=== PATIENT | male | born 1955 | race Caucasian/White ===

== ENCOUNTER 2020-08-18 14:37 | Observation (INO) | payer OTHER ==
[2020-08-18] MEDS ORDERED: HEPARIN SODIUM,PORCINE 5,000 UNIT/ML 1 ML VIAL IV PRN (15:09)
--- NOTE | 2020-08-18 15:11 | ED ---
General Adult HPI - General Chief complaint: Arrhythmia/Palpitations Stated complaint: Transfer from [place] for Cardiac Time Seen by Provider: 08/18/20 14:38 Source: patient, EMS, RN notes reviewed, old records reviewed (Reviewed reports from [facility]) Mode of arrival: EMS Limitations: no limitations - History of Present Illness Initial comments: Patient is a pleasant 65-year-old male presenting to the emergency department as a transfer from [place] for new onset atrial fibrillation. Patient did go to Hospital with difficulty in breathing complaints, similar to his chronic COPD. Patient denies chest pain or palpitations. No fatigue. While there patient was diagnosed with atrial fibrillation and started on Cardizem and heparin. Patient has no history of previous atrial fibrillation. Patient states overall he feels well. Patient denies any dyspnea at this time. No leg pain or leg swelling. - Related Data Allergies Allergy/AdvReac Type Severity Reaction Status Date / Time No Known Allergies Allergy Verified 08/18/20 14:52 Review of Systems ROS Statement: Those systems with pertinent positive or pertinent negative responses have been documented in the HPI. ROS Other: All systems not noted in ROS Statement are negative. Constitutional: Denies: fever Eyes: Denies: eye pain ENT: Denies: ear pain Respiratory: Reports: as per HPI. Denies: cough Cardiovascular: Reports: as per HPI. Denies: chest pain, palpitations Endocrine: Denies: fatigue Gastrointestinal: Denies: abdominal pain Genitourinary: Denies: dysuria Musculoskeletal: Denies: back pain Skin: Denies: rash Neurological: Denies: weakness Past Medical History Past Medical History: COPD Additional Past Medical History / Comment(s): Sober for 10 years History of Any Multi-Drug Resistant Organisms: None Reported Additional Past Surgical History / Comment(s): HYDROCELE Past Psychological History: Bipolar, Panic Disorder Smoking Status: Current every day smoker Past Alcohol Use History: None Reported Past Drug Use History: None Reported General Exam Limitations: no limitations General appearance: alert, in no apparent distress Head exam: Present: normocephalic Eye exam: Present: normal appearance Neck exam: Present: normal inspection Respiratory exam: Present: wheezes Cardiovascular Exam: Present: tachycardia, irregular rhythm Expanded Peripheral pulses: 2+: Radial (R), Radial (L), Dorsalis Pedis (R), Dorsalis Pedis (L) GI/Abdominal exam: Present: soft. Absent: tenderness Extremities exam: Present: normal inspection. Absent: pedal edema, calf tenderness Neurological exam: Present: alert Psychiatric exam: Present: normal affect, normal mood Skin exam: Present: normal color Course Vital Signs 08/18/20 14:45 Temperature 98.7 F Pulse Rate 105 H Respiratory 18 Rate Blood Pressure 167/127 O2 Sat by Pulse 94 L Oximetry - Reevaluation(s) Reevaluation #1: 08/18/20 15:16 Case was discussed with Dr. Sanon, who will admit covering for Dr. Villela 08/18/20 15:17 Cardizem and heparin drips restarted. Cardiology will be placed on consult. EKG Findings - EKG Comments: EKG Findings:: A. fib with RVR, rate 109. QRS 82. QT to 72. QTC 366. Right axis. Normal QRS. No acute ST change. Disposition Clinical Impression: Atrial fibrillation with RVR, COPD (chronic obstructive pulmonary disease) Disposition: ADMITTED IP TO THIS HOSP Is patient prescribed a controlled substance at d/c from ED?: No Referrals: Josue Villela MD [Primary Care Provider] - 1-2 days Decision Time: 15:17
[2020-08-18] MEDS ORDERED: DILTIAZEM 125 MG in SODIUM CHLORIDE 0.9% 100 ML IV SCH (15:15)
[2020-08-18] MEDS ORDERED: IPRATROPIUM-ALBUTEROL 3 ML NEB INHALATION STA (15:17)
[2020-08-18] MEDS ORDERED: IPRATROPIUM-ALBUTEROL 3 ML NEB INHALATION PRN (15:18)
[2020-08-18] MEDS: HEPARIN SOD,PORK IN 0.45% NACL 25,000 UNIT in 0.45% NACL 1 250ML.BAG IV SCH (15:56)
[2020-08-18] MEDS: IPRATROPIUM-ALBUTEROL 3 ML NEB INHALATION SCH ×2 (16:00→22:06)
[2020-08-18] MEDS ORDERED: methylPREDNISolone SOD SUCCI 125 MG/2 ML VIAL IV SCH (18:00)
[2020-08-18 21:20] LABS: Glucose,Whole Blood 108 mg/dL (75-99)
[2020-08-18] MEDS: INSULIN ASPART (NovoLOG) 100 UNIT/ML VIAL SQ SCH (21:22)
[2020-08-18] MEDS: LATANOPROST 0.005% OPHTH DROPS 2.5 ML BTL LEFT EYE SCH (21:22)
[2020-08-18] MEDS: NAPROXEN 250 MG TAB PO SCH (21:55)
[2020-08-18] MEDS: ATORVASTATIN 10 MG TAB PO SCH (21:55)
[2020-08-18] MEDS: LITHIUM CARBONATE 300 MG CAP PO SCH (21:56)
--- NOTE | 2020-08-18 23:29 | P.HPIM ---
History of Present Illness H&P Date: 08/18/20 Chief Complaint: Short of breath History of presenting complaint: This is a 65-year-old patient who follows with Dr. Alvin Villela. Chronic stable medical conditions include hyperlipidemia, hypothyroid, bipolar. Patient is a smoker. Patient chronically has some baseline shortness of breath but for 1 day became increasingly short of breath especially in the shower. Has a chronic cough with chronic white sputum. Appetite is okay on and off. Patient presented to [facility] for right knee was transferred here for new onset atrial fibrillation rate was uncontrolled. Patient started IV Cardizem and IV heparin. No prior history of the same. No chest pain or palpitation. Getting easily short winded Review of systems: GEN.: Tired EYES: None HEENT: None NECK: None RESPIRATORY: As above CARDIOVASCULAR: As above GASTROINTESTINAL: None GENITOURINARY: None MUSCULOSKELETAL: Some joint pains LYMPHATICS: None HEMATOLOGICAL: None PSYCHIATRY: None NEUROLOGICAL: None Past medical history to include: COPD, hyperlipidemia, hypothyroid, bipolar Social history: Lives with sister Marifer, smokes a pack a day for close to 50 years, no alcohol Physical examination: VITAL SIGNS: 98.7, 105, 18, 150-102, 94% on room air GENERAL: [BMI 31.2, laying in bed, a bit tired. EYES: Pupils equal. Conjunctiva normal. HEENT: External appearance of nose and ears normal, oral cavity grossly normal. NECK: JVD not raised; masses not palpable. HEART: Irregular heart sounds; no edema. LUNGS: Respiratory rate increased; decreased breath sounds prolonged expiration. ABDOMEN: Soft, nontender, liver spleen not palpable, no masses palpable. PSYCH: Alert and oriented x3; mood and affect normal. NEUROLOGICAL: Cranial nerves grossly intact; no facial asymmetry, power and sensation grossly intact. LYMPHATICS: No lymph nodes palpable in the axilla and neck INVESTIGATIONS, reviewed in the clinical context: Glucose 108 Troponin I less than 0.012 EKG showed A. fib with a rapid ventricular rate 109 Assessment: -New onset of atrial fibrillation flutter with a rapid ventricular late -Acute COPD exacerbation in a current smoker -Chronic bronchitis -Hyperlipidemia -Hypothyroid -Bipolar disorder Plan: Patient started IV Cardizem and IV heparin drip. IV Solu-Medrol applies bronchodilators. Home medications resumed. Cardiac disease consulted. Nicotine patch. Care was discussed with the patient. Past Medical History Past Medical History: COPD, Hyperlipidemia, Thyroid Disorder Additional Past Medical History / Comment(s): Sober for 10 years History of Any Multi-Drug Resistant Organisms: None Reported Additional Past Surgical History / Comment(s): HYDROCELE Past Anesthesia/Blood Transfusion Reactions: No Reported Reaction Past Psychological History: Anxiety, Bipolar, Panic Disorder Smoking Status: Current every day smoker Past Alcohol Use History: None Reported Past Drug Use History: None Reported - Past Family History Mother Family Medical History: Diabetes Mellitus Father Family Medical History: Coronary Artery Disease (CAD) Medications and Allergies Home Medications Medication Instructions Recorded Confirmed Type Albuterol Inhaler [Ventolin Hfa 2 puff INHALATION RT-Q4H PRN 08/18/20 08/18/20 History Inhaler] Beclomethasone Dipropionate [Qvar 2 puff PO RT-BID 08/18/20 08/18/20 History 80mcg Redihaler] Latanoprost/Pf [Latanoprost 0.005% 1 drop LEFT EYE HS 08/18/20 08/18/20 History Eye Drop] Levothyroxine Sodium 125 mcg PO DAILY 08/18/20 08/18/20 History [place] Carbonate 300 mg PO BID 08/18/20 08/18/20 History Naproxen 500 mg PO BID 08/18/20 08/18/20 History OLANZapine [ZyPREXA] 7.5 mg PO DAILY 08/18/20 08/18/20 History PARoxetine HCL [Paxil] 20 mg PO DAILY 08/18/20 08/18/20 History Simvastatin [Zocor] 20 mg PO HS 08/18/20 08/18/20 History Allergies Allergy/AdvReac Type Severity Reaction Status Date / Time No Known Allergies Allergy Verified 08/18/20 15:21 Physical Exam Vitals: Vital Signs Temp Pulse Pulse Resp BP BP Pulse Ox 08/18/20 20:00 97.8 F 105 H 18 134/96 92 L 08/18/20 18:11 98.5 F 78 18 118/99 93 L 08/18/20 17:01 98.5 F 78 18 118/99 93 L 08/18/20 16:24 110 H 16 115/102 93 L 08/18/20 16:01 97 16 08/18/20 15:54 96 16 08/18/20 15:25 115 H 08/18/20 14:45 98.7 F 105 H 18 167/127 94 L Intake and Output 08/18/20 08/18/20 08/19/20 14:59 22:59 06:59 Output Total 360 Balance -360 Output: Urine 360 Other: # Voids 1 Weight 113.398 kg 113.398 kg Results Labs: Abnormal Lab Results - Last 24 Hours (Table) 08/18/20 Range/Units 21:18 POC Glucose (mg/dL) 108 H (75-99) mg/dL Thrombosis Risk Factor Assmnt - Choose All That Apply Each Factor Represents 1 point: Abnormal pulmonary function (COPD) Each Risk Factor Represents 2 Points: Age 61-74 years Thrombosis Risk Factor Assessment Total Risk Factor Score: 3 Thrombosis Risk Factor Assessment Level: Moderate Risk
[2020-08-19] MEDS: methylPREDNISolone SOD SUCCI 40 MG/ML 1 ML VIAL IV SCH ×3 (00:05→15:10)
[2020-08-19 06:12] LABS: Glucose,Whole Blood 131 mg/dL (75-99)
[2020-08-19] MEDS: INSULIN ASPART (NovoLOG) 100 UNIT/ML VIAL SQ SCH ×4 (07:00→20:51)
[2020-08-19] MEDS: LEVOTHYROXINE 125 MCG TAB PO SCH (07:00)
[2020-08-19] MEDS: LITHIUM CARBONATE 300 MG CAP PO SCH ×2 (08:08→20:51)
[2020-08-19] MEDS: OLANZapine 7.5 MG TAB PO SCH (08:09)
[2020-08-19] MEDS: PARoxetine 20 MG TAB PO SCH (08:09)
[2020-08-19] MEDS: NAPROXEN 250 MG TAB PO SCH ×2 (08:09→20:49)
[2020-08-19] MEDS: guaiFENesin 600 MG TABLET.ER PO SCH ×2 (08:09→20:49)
[2020-08-19] MEDS: NICOTINE 21MG/24HR PATCH TRANSDERM SCH (08:09)
[2020-08-19 08:16] LABS: Basophils # (A) 0.1 k/uL (0-0.2); Basophils % (A) 1 %; Eosinophils % (A) 0 %; Lymphocytes # (A) 1.5 k/uL (1.0-4.8); Lymphocytes % (A) 13 %; MCH 30.6 pg (25.0-35.0); MCHC 32.4 g/dL (31.0-37.0); MCV 94.5 fL (80.0-100.0); Mean Platelet Volume 10.3; Monocytes # (A) 0.1 k/uL (0-1.0); Monocytes % (A) 1 %; Neutrophils # (A) 9.8 k/uL (1.3-7.7); Neutrophils % (A) 85 %; Platelet Count 208 k/uL (150-450); RDW 13.5 % (11.5-15.5); WBC 11.6 k/uL (3.8-10.6)
[2020-08-19 08:19] LABS: HCT 60.5 % (39.0-53.0); HGB 19.6 gm/dL (13.0-17.5)
[2020-08-19 08:21] LABS: Albumin 3.9 g/dL (3.5-5.0); Calcium 9.4 mg/dL (8.4-10.2); Potassium 4.5 mmol/L (3.5-5.1); Total Bilirubin 1.1 mg/dL (0.2-1.3); Total Protein 7.2 g/dL (6.3-8.2)
[2020-08-19] MEDS ORDERED: METOPROLOL TARTRATE 50 MG TAB PO SCH (09:00)
[2020-08-19] MEDS: IPRATROPIUM-ALBUTEROL 3 ML NEB INHALATION SCH ×4 (09:26→20:16)
[2020-08-19 09:28] LABS: INR 1.1 (<1.2); Prothrombin Time 11.3 sec (9.0-12.0)
[2020-08-19] MEDS ORDERED: METOPROLOL TARTRATE 25 MG TAB PO STA (10:20)
[2020-08-19 12:07] LABS: Glucose,Whole Blood 147 mg/dL (75-99)
[2020-08-19] MEDS: HEPARIN SOD,PORK IN 0.45% NACL 25,000 UNIT in 0.45% NACL 1 250ML.BAG IV SCH (12:28)
--- NOTE | 2020-08-19 13:05 | ECHOF ---
Referral Reason:lv function, afib MEASUREMENTS -------- HEIGHT: 190.5 cm WEIGHT: 106.6 kg BP: 126/77 RVIDd: 2.5 cm (< 3.3) IVSd: 1.4 cm (0.6 - 1.1) LVIDd: 3.1 cm (3.9 - 5.3) LVPWd: 1.5 cm (0.6 - 1.1) IVSs: 1.7 cm LVIDs: 2.7 cm LVPWs: 1.9 cm LA Diam: 2.9 cm (2.7 - 3.8) LAESV Index (A-L): 23.99 ml/m Ao Diam: 3.8 cm (2.0 - 3.7) AV Cusp: 2.4 cm (1.5 - 2.6) MV EXCURSION: 21.996 mm (> 18.000) MV EF SLOPE: 108 mm/s (70 - 150) EPSS: 0.8 cm RAP: 5.00 mmHg RVSP: 27.32 mmHg FINDINGS -------- Atrial fibrillation. This was a technically difficult study with suboptimal views. The left ventricular size is normal. There is moderate concentric left ventricular hypertrophy. O verall left ventricular systolic function is mild-moderately impaired with, an EF between 40 - 45 %. The right ventricle is normal in size. Normal LA size by volume 22+/-6 ml/m2. The right atrium is normal in size. Lumason used Interatrial and interventricular septum intact. The aortic valve is trileaflet and appears structurally normal. Mild mitral regurgitation is present. Mild tricuspid regurgitation present. Right ventricular systolic pressure is normal at < 35 mmHg. The pulmonic valve was not well visualized. The aortic root is dilated measuring 3.8cm. IVC Not well visulized. There is no pericardial effusion. CONCLUSIONS -------- 1. The left ventricular size is normal. 2. There is moderate concentric left ventricular hypertrophy. 3. Overall left ventricular systolic function is mild-moderately impaired with, an EF between 40 - 45 %. 4. Normal LA size by volume 22+/-6 ml/m2. 5. Lumason used 6. Mild mitral regurgitation is present. 7. Mild tricuspid regurgitation present. 8. The aortic root is dilated measuring 3.8cm. 9. There is no pericardial effusion. RABBIT FANCIER: Christine Saxena RDCS
--- NOTE | 2020-08-19 13:55 | P.CRDCN ---
History of Present Illness Consult date: 08/19/20 History of present illness: CHIEF COMPLAINT: New onset atrial fibrillation HISTORY OF PRESENT ILLNESS: This is a 65-year old male with a past medical history significant for COPD, hyperlipidemia, and nicotine dependence. 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 We have been asked to see the patient in consultation for new onset atrial fibrillation. Patient examined this morning at the bedside. Patient reports he has been short of breath since Sunday. He reports using his inhalers at home with minimal improvement. He reports feeling palpitations. He denies chest pain or pressure. Patient was evaluated at [facility] and was found to be in atrial fibrillation with RVR and was transferred to [facility] for further evaluation. DIAGNOSTICS: EKG reveals atrial fibrillation with RVR Laboratory data: WBC 11.6. Hemoglobin 19.6. Platelet count 208. Sodium 140. Potassium 4.5. BUN 16. Creatinine 1.04. BNP 736. Current home cardiac medications include simvastatin 20 mg daily REVIEW OF SYSTEMS: At the time of my exam: CONSTITUTIONAL: Denies fever or chills. HEENT: Denies blurred vision, vision changes, or eye pain. Denies hemoptysis CARDIOVASCULAR: Denies chest pain, orthopnea, PND or palpitations RESPIRATORY: No shortness of breath. GASTROINTESTINAL: Denies abdominal pain. Denies nausea or vomiting. HEMATOLOGIC: Denies bleeding disorders. GENITOURINARY: Denies any blood in urine. SKIN: Denies pruitis. Denies rash. PHYSICAL EXAM: VITAL SIGNS: Reviewed. GENERAL: Well-developed in no acute distress. HEENT: Head is normocephalic. Pupils are equal, round. Sclerae anicteric. Mucous membranes of the mouth are moist. Neck supple. No JVD or thyromegaly LUNGS: Respirations even and unlabored. Lungs coarse with expiratory wheezing noted. HEART: Irregular rate and rhythm. S1 and S2 heard. ABDOMEN: Soft. Nondistended. Nontender. EXTREMITIES: Normal range of motion. No clubbing or cyanosis. Peripheral pulses intact. No lower extremity edema NEUROLOGIC: Awake and alert. Oriented x 3. ASSESSMENT: New-onset atrial fibrillation with RVR Acute exacerbation of COPD Hyperlipidemia Hypothyroidism Nicotine dependence PLAN: Discontinue IV Cardizem drip Begin metoprolol 75 mg twice a day Monitor telemetry and blood pressure Obtain 2-D echo to assess cardiac structure and function Continue IV heparin at this time. If no significant abnormalities noted on echocardiogram will discontinue IV heparin and will recommend aspirin therapy only. If patient is found to have abnormalities on his echocardiogram will consider anticoagulation in the form of Eliquis or Xarelto Further recommendations pending Nurse practitioner note has been reviewed by physician. Signing provider agrees with the documented findings, assessment, and plan of care. Past Medical History Past Medical History: COPD, Hyperlipidemia, Thyroid Disorder Additional Past Medical History / Comment(s): Sober for 10 years History of Any Multi-Drug Resistant Organisms: None Reported Additional Past Surgical History / Comment(s): HYDROCELE Past Anesthesia/Blood Transfusion Reactions: No Reported Reaction Past Psychological History: Anxiety, Bipolar, Panic Disorder Smoking Status: Current every day smoker Past Alcohol Use History: None Reported Past Drug Use History: None Reported - Past Family History Mother Family Medical History: Diabetes Mellitus Father Family Medical History: Coronary Artery Disease (CAD) Medications and Allergies Home Medications Medication Instructions Recorded Confirmed Type Albuterol Inhaler [Ventolin Hfa 2 puff INHALATION RT-Q4H PRN 08/18/20 08/18/20 History Inhaler] Beclomethasone Dipropionate [Qvar 2 puff PO RT-BID 08/18/20 08/18/20 History 80mcg Redihaler] Latanoprost/Pf [Latanoprost 0.005% 1 drop LEFT EYE HS 08/18/20 08/18/20 History Eye Drop] Levothyroxine Sodium 125 mcg PO DAILY 08/18/20 08/18/20 History [place] Carbonate 300 mg PO BID 08/18/20 08/18/20 History Naproxen 500 mg PO BID 08/18/20 08/18/20 History OLANZapine [ZyPREXA] 7.5 mg PO DAILY 08/18/20 08/18/20 History PARoxetine HCL [Paxil] 20 mg PO DAILY 08/18/20 08/18/20 History Simvastatin [Zocor] 20 mg PO HS 08/18/20 08/18/20 History Allergies Allergy/AdvReac Type Severity Reaction Status Date / Time No Known Allergies Allergy Verified 08/18/20 15:21 Physical Exam Vitals: Vital Signs Temp Pulse Pulse Resp BP BP Pulse Ox 08/19/20 13:25 96 08/19/20 13:15 96 08/19/20 12:13 98.6 F 105 H 18 123/83 94 L 08/19/20 09:38 96 08/19/20 09:28 92 08/19/20 07:51 98.3 F 123 H 18 126/77 94 L 08/19/20 04:00 97.9 F 103 H 18 142/82 93 L 08/19/20 00:20 97.9 F 94 19 127/82 94 L 08/18/20 20:00 97.8 F 105 H 18 134/96 92 L 08/18/20 18:11 98.5 F 78 18 118/99 93 L 08/18/20 17:01 98.5 F 78 18 118/99 93 L 08/18/20 16:24 110 H 16 115/102 93 L 08/18/20 16:01 97 16 08/18/20 15:54 96 16 08/18/20 15:25 115 H 08/18/20 14:45 98.7 F 105 H 18 167/127 94 L Intake and Output 08/18/20 08/19/20 08/19/20 22:59 06:59 14:59 Intake Total 686.390 Output Total 360 180 Balance -360 -180 686.390 Intake: IV 10 Invasive Line 1 10 Intake, IV Titration 214.390 Amount Heparin Sod,Pork in 0.45% 214.390 NaCl 25,000 unit In 0.45 % NaCl 1 250ml.bag @ 8.82 UNITS/KG/HR 10.002 mls/ hr IV .Q24H [facility] Rx#: [id number] Oral 462 Output: Urine 360 180 Other: # Voids 1 1 Weight 113.398 kg 106.7 kg Results 08/19/20 07:47 08/19/20 07:50 Cardiac Enzymes 08/18/20 08/19/20 Range/Units 15:08 07:50 AST 29 (17-59) U/L Troponin I <0.012 (0.000-0.034) ng/mL Coagulation 08/18/20 08/19/20 Range/Units 15:17 08:45 PT 11.3 (9.0-12.0) sec APTT 27.7 29.0 (22.0-30.0) sec CBC 08/19/20 Range/Units 07:47 WBC 11.6 H (3.8-10.6) k/uL RBC 6.40 H (4.30-5.90) m/uL Hgb 19.6 H* (13.0-17.5) gm/dL Hct 60.5 H* (39.0-53.0) % Plt Count 208 (150-450) k/uL Comprehensive Metabolic Panel 08/19/20 Range/Units 07:50 Sodium 140 (137-145) mmol/L Potassium 4.5 (3.5-5.1) mmol/L Chloride 109 H (98-107) mmol/L Carbon Dioxide 25 (22-30) mmol/L BUN 16 (9-20) mg/dL Creatinine 1.04 (0.66-1.25) mg/dL Glucose 149 H (74-99) mg/dL Calcium 9.4 (8.4-10.2) mg/dL AST 29 (17-59) U/L ALT 26 (4-49) U/L Alkaline Phosphatase 82 (38-126) U/L Total Protein 7.2 (6.3-8.2) g/dL Albumin 3.9 (3.5-5.0) g/dL Current Medications Generic Name Dose Route Start Last Admin Trade Name Freq PRN Reason Stop Dose Admin Albuterol/Ipratropium 3 ml 08/18/20 16:00 08/19/20 13:15 Ipratropium-Albuterol 3 Ml Neb INHALATION 3 ml RT-QID TESFAYE Administration Albuterol/Ipratropium 3 ml 08/18/20 15:18 Ipratropium-Albuterol 3 Ml Neb INHALATION RT-Q4H PRN Shortness Of Breath Or Wheezing Atorvastatin Calcium 10 mg 08/18/20 21:00 08/18/20 21:55 Atorvastatin 10 Mg Tab PO 10 mg HS TESFAYE Administration Guaifenesin 1,200 mg 08/19/20 09:00 08/19/20 08:09 Guaifenesin 600 Mg Tablet.Er PO 1,200 mg Q12HR TESFAYE Administration Heparin Sodium (Porcine) 0 unit 08/18/20 15:09 08/19/20 09:44 Heparin Sodium,Porcine 5,000 Unit/Ml 1 Ml Vial IV 4,000 unit PER PROTOCOL PRN Administration Low PTT Protocol Heparin Sodium/Sodium Chloride 250 mls @ 10.002 mls/hr 08/18/20 15:15 12:28 25,000 unit/ Sodium Chloride IV 11.82 units/kg/hr .Q24H TESFAYE 13.404 mls/hr Administration Protocol 8.82 UNITS/KG/HR Insulin Aspart 0 unit 08/18/20 21:15 08/19/20 12:20 Insulin Aspart (Novolog) 100 Unit/Ml Vial SQ 2 unit ACHS TESFAYE Administration Protocol Latanoprost 1 drops 08/18/20 21:00 08/18/20 21:22 Latanoprost 0.005% Ophth Drops 2.5 Ml Btl LEFT EYE 1 drops HS TESFAYE Administration Levothyroxine Sodium 125 mcg 08/19/20 06:30 08/19/20 07:00 Levothyroxine 125 Mcg Tab PO 125 mcg DAILY@0630 TESFAYE Administration [place] Carbonate 300 mg 08/18/20 21:00 08/19/20 08:08 [place] Carbonate 300 Mg Cap PO 300 mg BID TESFAYE Administration Methylprednisolone Sodium Succinate 40 mg 08/19/20 00:00 08/19/20 08:09 Methylprednisolone Sod Succi 40 Mg/Ml 1 Ml Vial IV 40 mg Q8HR TESFAYE Administration Metoprolol Tartrate 75 mg 08/19/20 21:00 Metoprolol Tartrate 25 Mg Tab PO BID TESFAYE Naproxen 500 mg 08/18/20 21:00 08/19/20 08:09 Naproxen 250 Mg Tab PO 500 mg BID TESFAYE Administration Nicotine 1 patch 08/19/20 09:00 08/19/20 08:09 Nicotine 21mg/24hr Patch TRANSDERM 1 patch DAILY TESFAYE Administration Olanzapine 7.5 mg 08/19/20 09:00 08/19/20 08:09 Olanzapine 7.5 Mg Tab PO 7.5 mg DAILY TESFAYE Administration Paroxetine HCl 20 mg 08/19/20 09:00 08/19/20 08:09 Paroxetine 20 Mg Tab PO 20 mg DAILY TESFAYE Administration Sodium Chloride 10 ml 08/18/20 21:00 08/19/20 08:15 Sodium Chloride 0.9% Flush 10 Ml Syringe IV 10 ml BID TESFAYE Administration Intake and Output 08/18/20 08/19/20 08/19/20 22:59 06:59 14:59 Intake Total 686.390 Output Total 360 180 Balance -360 -180 686.390 Intake: IV 10 Invasive Line 1 10 Intake, IV Titration 214.390 Amount Heparin Sod,Pork in 0.45% 214.390 NaCl 25,000 unit In 0.45 % NaCl 1 250ml.bag @ 8.82 UNITS/KG/HR 10.002 mls/ hr IV .Q24H [facility] Rx#: [id number] Oral 462 Output: Urine 360 180 Other: # Voids 1 1 Weight 113.398 kg 106.7 kg 08/19/20 07:47 08/19/20 07:50
--- NOTE | 2020-08-19 16:50 | P.PN ---
Progress Note - Text Progress Note Date: 08/19/20 Chief Complaint: Short of breath History of presenting complaint: This is a 65-year-old patient who follows with Dr. Alvin Villela. Chronic stable medical conditions include hyperlipidemia, hypothyroid, bipolar. Patient is a smoker. Patient chronically has some baseline shortness of breath but for 1 day became increasingly short of breath especially in the shower. Has a chronic cough with chronic white sputum. Appetite is okay on and off. Patient presented to [facility] for right knee was transferred here for new onset atrial fibrillation rate was uncontrolled. Patient started IV Cardizem and IV heparin. No prior history of the same. No chest pain or palpitation. Getting easily short winded Admitted with new-onset atrial fibrillation flutter uncontrolled, COPD exacerbation.-Patient started IV heparin, IV Cardizem, bronchodilators, steroids. Today-heart rate bit better controlled. Breathing better. Less cough or shortness of breath. Did tolerate her diet. Review of systems: Was done for constitutional, cardiovascular, GI, pulmonary. relevant finding as above Active Medications Albuterol/Ipratropium (Ipratropium-Albuterol 3 Ml Neb) 3 ml INHALATION RT-QID TESFAYE Last Admin: 08/19/20 16:12 Dose: 3 ml Documented by: Albuterol/Ipratropium (Ipratropium-Albuterol 3 Ml Neb) 3 ml INHALATION RT-Q4H PRN PRN Reason: Shortness Of Breath Or Wheezing Atorvastatin Calcium (Atorvastatin 10 Mg Tab) 10 mg PO HS TESFAYE Last Admin: 08/18/20 21:55 Dose: 10 mg Documented by: Guaifenesin (Guaifenesin 600 Mg Tablet.Er) 1,200 mg PO Q12HR TESFAYE Last Admin: 08/19/20 08:09 Dose: 1,200 mg Documented by: Heparin Sodium (Porcine) (Heparin Sodium,Porcine 5,000 Unit/Ml 1 Ml Vial) 0 unit IV PER PROTOCOL PRN; Protocol PRN Reason: Low PTT Last Admin: 08/19/20 09:44 Dose: 4,000 unit Documented by: Heparin Sodium/Sodium Chloride (25,000 unit/ Sodium Chloride) 250 mls @ 10.002 mls/hr IV .Q24H TESFAYE; Protocol Last Admin: 08/19/20 12:28 Dose: 11.82 units/kg/hr, 13.404 mls/hr Documented by: Insulin Aspart (Insulin Aspart (Novolog) 100 Unit/Ml Vial) 0 unit SQ ACHS [facility]; Protocol Last Admin: 08/19/20 12:20 Dose: 2 unit Documented by: Latanoprost (Latanoprost 0.005% Ophth Drops 2.5 Ml Btl) 1 drops LEFT EYE HS [facility] Last Admin: 08/18/20 21:22 Dose: 1 drops Documented by: Levothyroxine Sodium (Levothyroxine 125 Mcg Tab) 125 mcg PO DAILY@0630 [facility] Last Admin: 08/19/20 07:00 Dose: 125 mcg Documented by: [place] Carbonate ([place] Carbonate 300 Mg Cap) 300 mg PO BID [facility] Last Admin: 08/19/20 08:08 Dose: 300 mg Documented by: Methylprednisolone Sodium Succinate (Methylprednisolone Sod Succi 40 Mg/Ml 1 Ml Vial) 40 mg IV Q8HR [facility] Last Admin: 08/19/20 15:10 Dose: 40 mg Documented by: Metoprolol Tartrate (Metoprolol Tartrate 25 Mg Tab) 75 mg PO BID [facility] Naproxen (Naproxen 250 Mg Tab) 500 mg PO BID [facility] Last Admin: 08/19/20 08:09 Dose: 500 mg Documented by: Nicotine (Nicotine 21mg/24hr Patch) 1 patch TRANSDERM DAILY [facility] Last Admin: 08/19/20 08:09 Dose: 1 patch Documented by: Olanzapine (Olanzapine 7.5 Mg Tab) 7.5 mg PO DAILY [facility] Last Admin: 08/19/20 08:09 Dose: 7.5 mg Documented by: Paroxetine HCl (Paroxetine 20 Mg Tab) 20 mg PO DAILY [facility] Last Admin: 08/19/20 08:09 Dose: 20 mg Documented by: Sodium Chloride (Sodium Chloride 0.9% Flush 10 Ml Syringe) 10 ml IV BID [facility] Last Admin: 08/19/20 08:15 Dose: 10 ml Documented by: Physical examination: VITAL SIGNS: 98.7, 97, 16, 111/87, 95% room air GENERAL: Laying in bed, but more comfortable EYES: Pupils equal. Conjunctiva normal. NECK: JVD not raised; masses not palpable. HEART: Irregular heart sounds; no edema. LUNGS: Respiratory rate increased; decreased breath sounds . ABDOMEN: Soft, nontender, liver spleen not palpable, no masses palpable. PSYCH: Alert and oriented x3; mood and affect normal. INVESTIGATIONS, reviewed in the clinical context: White count 11.6 hemoglobin 9.6 platelets 208 potassium 4.5 creatinine 1.04 2-D echocardiogram EF 40-45% moderate concentric LVH Glucose 108 Troponin I less than 0.012 EKG showed A. fib with a rapid ventricular rate 109 Assessment: -New onset of atrial fibrillation flutter with a rapid ventricular late -Acute COPD exacerbation in a current smoker -Chronic congestive heart failure from systolic dysfunction EF 40-45%-possibly an arrhythmia induced -Chronic bronchitis -Hyperlipidemia -Hypothyroid -Bipolar disorder Plan: Patient remains on IV heparin, IV Solu-Medrol, DuoNeb, IV heparin. Change patient over to Lovenox until long-term antibiotic anticoagulation. IV Cardizem discontinued. Started on metoprolol. Patient encouraged to be out of bed.
[2020-08-19 16:54] LABS: MCH 30.3 pg (25.0-35.0); MCV 91.7 fL (80.0-100.0); Mean Platelet Volume 10.7; Platelet Count 207 k/uL (150-450); RBC 6.04 m/uL (4.30-5.90); RDW 13.7 % (11.5-15.5); WBC 18.1 k/uL (3.8-10.6)
[2020-08-19 16:56] LABS: HCT 55.4 % (39.0-53.0); HGB 18.3 gm/dL (13.0-17.5)
[2020-08-19 17:03] LABS: Glucose,Whole Blood 119 mg/dL (75-99)
[2020-08-19 17:07] LABS: Hemoglobin A1C 5.7 % (4.0-6.0)
[2020-08-19 20:36] LABS: Glucose,Whole Blood 134 mg/dL (75-99)
[2020-08-19] MEDS: ENOXAPARIN 100 MG/ML SYRINGE SQ SCH (20:48)
[2020-08-19] MEDS: LATANOPROST 0.005% OPHTH DROPS 2.5 ML BTL LEFT EYE SCH (20:48)
[2020-08-19] MEDS: METOPROLOL TARTRATE 25 MG TAB PO SCH (20:49)
[2020-08-19] MEDS: ATORVASTATIN 10 MG TAB PO SCH (20:51)
[2020-08-20 06:23] LABS: Glucose,Whole Blood 100 mg/dL (75-99)
[2020-08-20] MEDS: LEVOTHYROXINE 125 MCG TAB PO SCH (06:39)
[2020-08-20 06:50] LABS: Basophils # (A) 0.1 k/uL (0-0.2); Basophils % (A) 0 %; Eosinophils # (A) 0.1 k/uL (0-0.7); Eosinophils % (A) 0 %; HGB 17.5 gm/dL (13.0-17.5); Lymphocytes # (A) 2.4 k/uL (1.0-4.8); Lymphocytes % (A) 10 %; MCH 29.3 pg (25.0-35.0); MCHC 31.8 g/dL (31.0-37.0); MCV 92.2 fL (80.0-100.0); Mean Platelet Volume 10.3; Monocytes # (A) 1.4 k/uL (0-1.0); Monocytes % (A) 6 %; Neutrophils # (A) 19.6 k/uL (1.3-7.7); Neutrophils % (A) 82 %; Platelet Count 210 k/uL (150-450); RBC 5.97 m/uL (4.30-5.90); RDW 13.7 % (11.5-15.5); WBC 23.9 k/uL (3.8-10.6)
[2020-08-20 07:25] LABS: INR 1.2 (<1.2)
[2020-08-20] MEDS: INSULIN ASPART (NovoLOG) 100 UNIT/ML VIAL SQ SCH ×2 (07:34→12:11)
[2020-08-20 07:46] VITALS: RESP 16
[2020-08-20] MEDS: NICOTINE 21MG/24HR PATCH TRANSDERM SCH (07:46)
[2020-08-20] MEDS: PARoxetine 20 MG TAB PO SCH (07:46)
[2020-08-20] MEDS: guaiFENesin 600 MG TABLET.ER PO SCH (07:47)
[2020-08-20] MEDS: NAPROXEN 250 MG TAB PO SCH (07:47)
[2020-08-20] MEDS: LITHIUM CARBONATE 300 MG CAP PO SCH (07:47)
[2020-08-20] MEDS: METOPROLOL TARTRATE 25 MG TAB PO SCH (07:47)
[2020-08-20] MEDS: OLANZapine 7.5 MG TAB PO SCH (07:47)
[2020-08-20] MEDS: ENOXAPARIN 100 MG/ML SYRINGE SQ SCH (07:48)
[2020-08-20] MEDS: IPRATROPIUM-ALBUTEROL 3 ML NEB INHALATION SCH ×2 (08:46→12:33)
[2020-08-20] MEDS ORDERED: predniSONE 20 MG TAB PO SCH (09:00)
[2020-08-20 11:58] LABS: Glucose,Whole Blood 108 mg/dL (75-99)
[2020-08-20] MEDS ORDERED: INFLUENZA VACCINE (6 MOS+) 60 MCG/0.5 ML SYRINGE IM ONE (12:08)
[2020-08-20] MEDS ORDERED: PNEUMOCOCCAL VACC-PNEUMOVAX 23 25 MCG/0.5 ML VIAL IM ONE (12:09)
[2020-08-20 12:24] VITALS: BP 122/68; TEMP 97.6
[2020-08-20 12:36] VITALS: PULSE 96
--- NOTE | 2020-08-20 14:45 | P.PN ---
Subjective Progress Note Date: 08/20/20 CHIEF COMPLAINT: New onset atrial fibrillation HISTORY OF PRESENT ILLNESS: Patient examined this morning at the bedside with Dr. Jasso. Patient states his shortness of breath has improving. He reports a productive cough. Echocardiogram completed reveals EF 40-45%. Patient remains in fibrillation with controlled ventricular rate. PHYSICAL EXAM: VITAL SIGNS: Reviewed. GENERAL: Well-developed in no acute distress. HEENT: Head is normocephalic. Pupils are equal, round. Sclerae anicteric. Mucous membranes of the mouth are moist. Neck supple. No JVD or thyromegaly LUNGS: Respirations even and unlabored. Lungs coarse with expiratory wheezing noted. HEART: Irregular rate and rhythm. S1 and S2 heard. ABDOMEN: Soft. Nondistended. Nontender. EXTREMITIES: Normal range of motion. No clubbing or cyanosis. Peripheral pulses intact. No lower extremity edema NEUROLOGIC: Awake and alert. Oriented x 3. ASSESSMENT: New-onset atrial fibrillation with RVR Cardiomyopathy, unknown if ischemic or nonischemic, EF 40-45% Acute exacerbation of COPD Hyperlipidemia Hypothyroidism Nicotine dependence PLAN: Continue metoprolol Patient with a chadvasc score of 1. No anticoagulation recommended at discharge per Dr. Jasso. Patient to follow-up outpatient with Dr. Jasso. Will repeat echocardiogram in 4-6 weeks to see if improvement in ejection fraction. If no improvement, may reconsider anticoagulation at that time per Dr. Jasso. Nurse practitioner note has been reviewed by physician. Signing provider agrees with the documented findings, assessment, and plan of care. Objective - Vital Signs Vital signs: Vital Signs Temp 97.6 F 08/20/20 11:00 Pulse 96 08/20/20 12:33 Resp 16 08/20/20 11:00 BP 122/68 08/20/20 11:00 Pulse Ox 96 08/20/20 11:00 Intake & Output 08/19/20 08/20/20 08/20/20 18:59 06:59 18:59 Intake Total 1536.390 500 426 Output Total 600 0 Balance 936.390 500 426 Weight 107.6 kg Intake: IV 20 10 Invasive Line 1 20 10 Intake, IV Titration 214.390 Amount Heparin Sod,Pork in 0.45% 214.390 NaCl 25,000 unit In 0.45 % NaCl 1 250ml.bag @ 8.82 UNITS/KG/HR 10.002 mls/ hr IV .Q24H TESFAYE Rx#: [id number] Oral 1302 500 416 Output: Urine 600 0 - Labs CBC & Chem 7: 08/20/20 06:35 08/19/20 07:50 Labs: Abnormal Lab Results - Last 24 Hours (Table) 08/19/20 08/19/20 08/19/20 Range/Units 15:41 16:14 16:58 WBC 18.1 H (3.8-10.6) k/uL RBC 6.04 H (4.30-5.90) m/uL Hgb 18.3 H (13.0-17.5) gm/dL Hct 55.4 H (39.0-53.0) % Neutrophils # (1.3-7.7) k/uL Monocytes # (0-1.0) k/uL INR (<1.2) APTT 55.9 H (22.0-30.0) sec POC Glucose (mg/dL) 119 H (75-99) mg/dL 08/19/20 08/20/20 08/20/20 Range/Units 20:35 06:22 06:35 WBC 23.9 H (3.8-10.6) k/uL RBC 5.97 H (4.30-5.90) m/uL Hgb (13.0-17.5) gm/dL Hct 55.0 H (39.0-53.0) % Neutrophils # 19.6 H (1.3-7.7) k/uL Monocytes # 1.4 H (0-1.0) k/uL INR (<1.2) APTT (22.0-30.0) sec POC Glucose (mg/dL) 134 H 100 H (75-99) mg/dL 08/20/20 08/20/20 Range/Units 06:35 11:53 WBC (3.8-10.6) k/uL RBC (4.30-5.90) m/uL Hgb (13.0-17.5) gm/dL Hct (39.0-53.0) % Neutrophils # (1.3-7.7) k/uL Monocytes # (0-1.0) k/uL INR 1.2 H (<1.2) APTT (22.0-30.0) sec POC Glucose (mg/dL) 108 H (75-99) mg/dL
--- NOTE | 2020-08-20 22:03 | P.DS ---
Providers Date of admission: 08/18/20 15:18 Expected date of discharge: 08/20/20 Attending physician: Олег Sanon Consults: 08/18/20 15:18 Consult Physician Routine Consulting Provider: Omar Florian Consult Reason/Comments: a fib w rv Do you want consulting provider notified?: Yes Primary care physician: Mary Imogene Bassett Hospital Course: Chief Complaint: Short of breath History of presenting complaint: This is a 65-year-old patient who follows with Dr. Alvin Villela. Chronic stable medical conditions include hyperlipidemia, hypothyroid, bipolar. Patient is a smoker. Patient chronically has some baseline shortness of breath but for 1 day became increasingly short of breath especially in the shower. Has a chronic cough with chronic white sputum. Appetite is okay on and off. Patient presented to [facility] for right knee was transferred here for new onset atrial fibrillation rate was uncontrolled. Patient started IV Cardizem and IV heparin. No prior history of the same. No chest pain or palpitation. Getting easily short winded Admitted with new-onset atrial fibrillation flutter uncontrolled, COPD exacerbation.-Patient started IV heparin, IV Cardizem, bronchodilators, steroids. Today-heart rate better controlled. Up and about. Dr. Jasso was decided to hold off any anticoagulation for now. Repeat the echo as an outpatient. 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 Jasso from cardiology Physical examination: VITAL SIGNS: 97.6, 73, 16, 122/68, 96% room air GENERAL: Sitting up, comfortable EYES: Pupils equal. Conjunctiva normal. NECK: JVD not raised; masses not palpable. HEART: Irregular heart sounds; no edema. LUNGS: Respiratory rate increased; decreased breath sounds . ABDOMEN: Soft, nontender, liver spleen not palpable, no masses palpable. PSYCH: Alert and oriented x3; mood and affect normal. INVESTIGATIONS, reviewed in the clinical context: White count 22.9 hemoglobin 17.5 Previous testing White count 11.6 hemoglobin 9.6 platelets 208 potassium 4.5 creatinine 1.04 2-D echocardiogram EF 40-45% moderate concentric LVH Glucose 108 Troponin I less than 0.012 EKG showed A. fib with a rapid ventricular rate 109 Assessment: -New onset of atrial fibrillation flutter with a rapid ventricular late- controlled -Acute COPD exacerbation in a current smoker -Chronic congestive heart failure from systolic dysfunction EF 40-45%-possibly arrhythmia induced. Cannot rule out ischemia -Chronic bronchitis -Hyperlipidemia -Hypothyroid -Bipolar disorder Disposition: Home Plan - Discharge Summary Discharge Rx Participant: No New Discharge Prescriptions: New Nicotine 21Mg/24Hr Patch [Habitrol] 1 patch TRANSDERM DAILY #14 patch Metoprolol Tartrate [Lopressor] 50 mg PO TID #90 tab predniSONE 10 mg PO DAILY #30 tab Continue PARoxetine HCL [Paxil] 20 mg PO DAILY OLANZapine [ZyPREXA] 7.5 mg PO DAILY Beclomethasone Dipropionate [Qvar 80mcg Redihaler] 2 puff PO RT-BID Naproxen 500 mg PO BID [place] Carbonate 300 mg PO BID Levothyroxine Sodium 125 mcg PO DAILY Latanoprost/Pf [Latanoprost 0.005% Eye Drop] 1 drop LEFT EYE HS Albuterol Inhaler [Ventolin Hfa Inhaler] 2 puff INHALATION RT-Q4H PRN PRN Reason: Shortness Of Breath Simvastatin [Zocor] 20 mg PO HS Discharge Medication List Albuterol Inhaler [Ventolin Hfa Inhaler] 2 puff INHALATION RT-Q4H PRN 08/18/20 [History] Beclomethasone Dipropionate [Qvar 80mcg Redihaler] 2 puff PO RT-BID 08/18/20 [History] Latanoprost/Pf [Latanoprost 0.005% Eye Drop] 1 drop LEFT EYE HS 08/18/20 [History] Levothyroxine Sodium 125 mcg PO DAILY 08/18/20 [History] [place] Carbonate 300 mg PO BID 08/18/20 [History] Naproxen 500 mg PO BID 08/18/20 [History] OLANZapine [ZyPREXA] 7.5 mg PO DAILY 08/18/20 [History] PARoxetine HCL [Paxil] 20 mg PO DAILY 08/18/20 [History] Simvastatin [Zocor] 20 mg PO HS 08/18/20 [History] Metoprolol Tartrate [Lopressor] 50 mg PO TID #90 tab 08/20/20 [Rx] Nicotine 21Mg/24Hr Patch [Habitrol] 1 patch TRANSDERM DAILY #14 patch 08/20/20 [Rx] predniSONE 10 mg PO DAILY #30 tab 08/20/20 [Rx] Follow up Appointment(s)/Referral(s): Pj Jasso DO [STAFF PHYSICIAN] - 08/27/20 11:00 am (Sunday) Josue Villela MD [Primary Care Provider] - 08/26/20 10:00 am (Sunday) Patient Instructions/Handouts: A-fib (Atrial Fibrillation) (DC), COPD (Chronic Obstructive Pulmonary Disease) (DC) Discharge Disposition: HOME SELF-CARE
== END 2020-08-20 15:24 | disposition home or self-care (01) ==
LOC: EC 14:37 → INTOOBSV 15:18 → 3SCARD 15:18 → UNDODISIN 08-20 15:24
PROVIDERS: ADMIT Hospitalist; ATTEND Hospitalist
DX: I48.91 Unspecified atrial fibrillation (principal); J44.1 Chronic obstructive pulmonary disease with (acute) exacerbation; I50.22 Chronic systolic (congestive) heart failure; E78.5 Hyperlipidemia, unspecified; E03.9 Hypothyroidism, unspecified; F17.210 Nicotine dependence, cigarettes, uncomplicated; F31.9 Bipolar disorder, unspecified; F41.0 Panic disorder [episodic paroxysmal anxiety]; I42.9 Cardiomyopathy, unspecified; I48.92 Unspecified atrial flutter; Z23 Encounter for immunization; Z79.51 Long term (current) use of inhaled steroids; Z79.890 Hormone replacement therapy; Z79.899 Other long term (current) drug therapy; Z82.49 Family history of ischemic heart disease and other diseases of the circulatory system; Z83.3 Family history of diabetes mellitus
CPT/HCPCS: 96376; 96366 ×2; 96372 ×2; 96375; 96368 ×2; 96365; 99285; 36415; 94640 ×4; 94760; 93005; 83880; 80053; 84443; 84484; 85025 ×2; 85027; 85610 ×2; 85730 ×3; 83036; 90732; 90686; G0378 ×3; C8929; G0008; G0009; S4990 ×2; J1644 ×3; J2920; J2930; J1650 ×2; J7512; Q9950; 93306

== ENCOUNTER 2020-11-16 06:24 | Day surgery (SDC) | payer OTHER ==
[2020-11-09 11:31] VITALS: BMI 30.7
[2020-11-16] MEDS ORDERED: SODIUM CHLORIDE 0.9% 1,000 ML IV SCH (06:25)
[2020-11-16] MEDS ORDERED: LACTATED RINGERS 1,000 ML IV SCH (06:25)
[2020-11-16 06:49] VITALS: TEMP 97.8
[2020-11-16 07:06] LABS: Calcium 9.1 mg/dL (8.4-10.2)
[2020-11-16 07:13] LABS: Potassium 4.7 mmol/L (3.5-5.1)
[2020-11-16] MEDS ORDERED: PROPOFOL 10 MG/ML 20 ML VIAL IV ONE (07:25)
[2020-11-16] MEDS ORDERED: PHENYLEPHRINE 10 MG/ML VIAL ONE (07:25)
[2020-11-16] MEDS ORDERED: LIDOCAINE 1% INJ 10MG/ML (20 ML MDV) ONE (07:25)
[2020-11-16] MEDS ORDERED: HEPARIN SODIUM,PORCINE 5,000 UNIT/ML 1 ML VIAL IV ONE (07:37)
--- NOTE | 2020-11-16 08:37 | P.TEE ---
Description of Procedure(s): Procedure performed: Transesophageal Echocardiogram with color flow doppler, pulsed wave doppler, synchronized cardioversion Sedation: Sedation was given by anesthesia. See anesthesia note for full details. Complications: none Indications: Symptomatic Atrial fibrillation History: Patient is a pleasant 65 year old male with history of COPD, HLD, tobacco abuse, mildly reduced EF 40-45% and new onset afib from 08/2020. He has been having worsening SOB as well as new lower extremity edema and therefore we discussed HAMMAD and cardioversion and patient was agreeable. PROCEDURE: After the risks, benefits and alternatives of the above mentioned procedure was explained in detail with the patient, informed consent was obtaine d. Patient was brought to the lab in a fasting state. Patient was given sedation by anesthesia, see anesthesia note for details. The throat was sprayed with Hurricane to anesthetize the throat. A lubricated Omni probe was then introduced into the esophagus and stomach. 2D echo with color flow doppler, pulsed wave doppler was utilized. Unfortunately, extremely limited views were obtained secondary to patient's anatomy and orientation despite approximately 15 minutes of manipulations. Fortunately the left atrial appendage was able to be fully visualized and showed no evidence of thrombus. Therefore the probe was removed. Attempted cardioversion with 200J was unsuccessful however second attempt with 300J synchronized was successful with patient converting to sinus bradycardia. Patient tolerated the procedure well. Patient was transferred to the post procedure area in stable and satisfactory condition. FINDINGS: 1. Extremely limited views secondary to orientaion, patient anatomy 2. The aortic valve appears to be tricupsid without significant stenosis and trace regurgitation 3. Left ventricular function unable to be estimated secondary to limited vie ws. 4. Left atrial appendage is free of clot.
[2020-11-16] MEDS ORDERED: APIXABAN 5 MG TAB PO SCH (09:00)
[2020-11-16 09:44] VITALS: RESP 18
[2020-11-16 10:03] VITALS: BP 98/78; PULSE 48
[2020-11-16] MEDS ORDERED: METOPROLOL TARTRATE 50 MG TAB PO SCH (21:00)
== END 2020-11-16 10:29 | disposition home or self-care (01) ==
LOC: CATHCVL 06:24
PROVIDERS: ATTEND Internal Medicine
DX: I48.19 Other persistent atrial fibrillation (principal); J44.9 Chronic obstructive pulmonary disease, unspecified; E78.5 Hyperlipidemia, unspecified; I10 Essential (primary) hypertension; Z82.49 Family history of ischemic heart disease and other diseases of the circulatory system; I42.9 Cardiomyopathy, unspecified; R06.00 Dyspnea, unspecified; Z79.890 Hormone replacement therapy; Z79.899 Other long term (current) drug therapy; F17.210 Nicotine dependence, cigarettes, uncomplicated
CPT/HCPCS: 93312; 93320; 93325; 92960; 80048; J1644; J2370; J2001; J2704

== ENCOUNTER 2022-04-01 12:39 | Inpatient (IN) | payer MEDICARE, OTHER ==
[2022-04-01 14:06] LABS: Basophils % (A) 0 %; Eosinophils # (A) 0.1 k/uL (0-0.7); Eosinophils % (A) 1 %; HCT 53.9 % (39.0-53.0); HGB 17.5 gm/dL (13.0-17.5); Lymphocytes # (A) 1.8 k/uL (1.0-4.8); Lymphocytes % (A) 17 %; MCHC 32.5 g/dL (31.0-37.0); MCV 95.4 fL (80.0-100.0); Mean Platelet Volume 12.4; Monocytes # (A) 0.9 k/uL (0-1.0); Monocytes % (A) 8 %; Neutrophils # (A) 7.7 k/uL (1.3-7.7); Neutrophils % (A) 71 %; Platelet Count 147 k/uL (150-450); RBC 5.65 m/uL (4.30-5.90); RDW 14.4 % (11.5-15.5); WBC 10.8 k/uL (3.8-10.6)
[2022-04-01 14:10] LABS: Albumin 3.9 g/dL (3.5-5.0); Calcium 9.1 mg/dL (8.4-10.2); Potassium 4.1 mmol/L (3.5-5.1); Total Bilirubin 1.2 mg/dL (0.2-1.3)
[2022-04-01 14:13] LABS: INR 1.2 (<1.2); Prothrombin Time 12.9 sec (9.0-12.0)
--- NOTE | 2022-04-01 14:23 | XR ---
EXAMINATION TYPE: XR chest 2V DATE OF EXAM: 04/01/2022 2:17 PM COMPARISON: None TECHNIQUE: XR chest 2V Frontal and lateral views of the chest. CLINICAL INDICATION:Male, 67 years old with history of shortness of breath; FINDINGS: Lungs/Pleura: There is no evidence of , focal consolidation, or pneumothorax. Blunting of the costop hrenic angles best appreciated on lateral. Pulmonary vascularity: Pulmonary vascular congestion. Heart/mediastinum: Cardiomediastinal silhouette is enlarged and stable. Musculoskeletal: No acute osseous pathology. IMPRESSION: 1. Cardiomegaly and mild pulmonary vascular congestion. Correlate with BNP for congestive heart fail ure. 2. Small left pleural effusion, could relate to #1.
--- NOTE | 2022-04-01 15:53 | CT ---
EXAMINATION TYPE: CT brain cspine wo con CT DLP: 1553.5 mGycm, Automated exposure control for dose reduction was used. DATE OF EXAM: 04/01/2022 3:38 PM COMPARISON: None.. CLINICAL INDICATION:Male, 67 years old with history of fall, head injury; fell hitting head TECHNIQUE: Brain: Multiple axial CT images of the brain were obtained without IV contrast. Cspine: Axial CT images from the skull base to the inferior aspect of T2 we obtained without intraven ous contrast. Coronal and sagittal reformatted images were also reviewed. FINDINGS: Brain: Extra-axial spaces: No abnormal extra-axial fluid collections. Ventricular system: Within normal limits Cerebral parenchyma: No acute intraparenchymal hemorrhage or mass effect. The linares-white junction is well differentiated. Cerebellum: Unremarkable. Mass effect: No evidence of midline shift. Intracranial vasculature: unremarkable Soft tissues: Normal. Calvarium/osseous structures: No depressed skull fracture. Paranasal sinuses and mastoid air cells: Clear. Visualized orbits: Bilateral aphakia Cervical spine: Fracture: None. Osseous structures: Multilevel degenerative disc disease changes with endplate spurring and disc oste ophyte complex's. Vertebral alignment: Within normal limits. Spinal canal/Neural Foramina: No evidence of significant spinal canal narrowing. Facet joint uncovert ebral joint arthropathy scattered throughout the cervical spine with varying degrees of neural forami nal stenosis. Neck soft tissues: Prevertebral soft tissues are within normal limits. Other: The airway is patent. The lung apices are clear. IMPRESSION: 1. No acute intracranial process. 2. No evidence of cervical spine fracture. 3. Mild to moderate multilevel degenerative disc disease.
[2022-04-01] MEDS ORDERED: PNEUMONIA PROTOCOL UTILIZED 1 EACH MISC PO PRN (15:59)
[2022-04-01] MEDS ORDERED: AZITHROMYCIN 500 MG in SODIUM CHLORIDE 0.9% 250 ML IVPB STA (15:59)
[2022-04-01] MEDS ORDERED: IPRATROPIUM-ALBUTEROL 3 ML NEB INHALATION STA (16:11)
--- NOTE | 2022-04-01 16:42 | ED ---
General Adult HPI - General Chief complaint: Weakness Stated complaint: Falls/blood thinners/not sleeping Time Seen by Provider: 04/01/22 12:55 Source: patient Mode of arrival: wheelchair Limitations: no limitations - History of Present Illness Initial comments: 67-year-old male past medical history of A. fib on eliquis, COPD, hypertension, bipolar 1 presents emergency department for weakness and multiple falls. Family is at bedside and helps provide the history. States that he has not slept in the past 4 days, is having visual hallucinations and is falling. Patient reports that he is not sleeping at night because he becomes extremely short of breath when laying down. COPD. Has been using his breathing treatments without relief. Admits to a productive cough with chills. No chest pain. No recent head trauma but did have a fall with head injury. He was seen by his primary care provider and had a CT performed which did not demonstrate any acute intracranial process. He has had recent change in his Zyprexa dosing so family unsure if his behavior is due to this medication change. No history of heart failure. Has some lower extremity edema which has been constant. - Related Data Home Medications Medication Instructions Recorded Confirmed Latanoprost/Pf [Latanoprost 0.005% 1 drop LEFT EYE HS 08/18/20 04/01/22 Eye Drop] Levothyroxine Sodium 125 mcg PO DAILY 08/18/20 04/01/22 PARoxetine HCL [Paxil] 20 mg PO DAILY 08/18/20 04/01/22 Albuterol Sulfate [Albuterol 1 puff PO RT-Q4H PRN 04/01/22 04/01/22 Sulfate Hfa] Apixaban [Eliquis] 5 mg PO BID 04/01/22 04/01/22 Aspirin EC [Ecotrin Low Dose] 81 mg PO DAILY@1400 04/01/22 04/01/22 Gabapentin [Neurontin] 100 mg PO TID 04/01/22 04/01/22 Loratadine [Claritin] 10 mg PO DAILY 04/01/22 04/01/22 OLANZapine [ZyPREXA] 15 mg PO HS 04/01/22 04/01/22 Previous Rx's Medication Instructions Recorded Acetaminophen Tab [Tylenol] 650 mg PO Q6HR PRN tab 04/06/22 Albuterol Nebulized [Ventolin 3 ml INHALATION Q6H 30 Days #6 pack 04/06/22 Nebulized] Budesonide-Formot 160-4.5 Mcg 2 puff INHALATION BID 30 Days #1 04/06/22 [Symbicort 160-4.5 Mcg Inhaler] each Fluconazole [Diflucan] 100 mg PO DAILY 5 Days #5 tab 04/06/22 Ipratropium-Albuterol Nebulize 3 ml INHALATION RT-Q2H PRN each 04/06/22 [Duoneb 0.5 mg-3 mg/3 ml Soln] Ipratropium-Albuterol Nebulize 3 ml INHALATION RT-QID 30 Days #90 04/06/22 [Duoneb 0.5 mg-3 mg/3 ml Soln] each Metoprolol Tartrate [Lopressor] 25 mg PO BID 30 Days #60 tab 04/06/22 Nicotine 21Mg/24Hr Patch [Habitrol] 1 patch TRANSDERM DAILY patch 04/06/22 predniSONE 10 mg PO DIRECTED #30 tab 04/06/22 Allergies Allergy/AdvReac Type Severity Reaction Status Date / Time No Known Allergies Allergy Verified 04/01/22 17:12 Review of Systems ROS Statement: Those systems with pertinent positive or pertinent negative responses have been documented in the HPI. ROS Other: All systems not noted in ROS Statement are negative. Past Medical History Past Medical History: Atrial Fibrillation, COPD, Eye Disorder, Hyperlipidemia, Hypertension, Thyroid Disorder Additional Past Medical History / Comment(s): Sober for 10 years, hiatal hernia, glaucoma left eye, possible stroke behind left eye per opthamologist History of Any Multi-Drug Resistant Organisms: None Reported Additional Past Surgical History / Comment(s): HYDROCELE surg. x2, hemorrhoidectomy Past Anesthesia/Blood Transfusion Reactions: No Reported Reaction Past Psychological History: Anxiety, Bipolar, Panic Disorder Smoking Status: Current every day smoker - Past Family History Mother Family Medical History: Diabetes Mellitus Father Family Medical History: Coronary Artery Disease (CAD) General Exam Limitations: no limitations General appearance: alert, in no apparent distress Head exam: Present: atraumatic, normocephalic, normal inspection Eye exam: Present: normal appearance, PERRL, EOMI. Absent: scleral icterus, conjunctival injection, periorbital swelling ENT exam: Present: normal exam, mucous membranes moist Neck exam: Present: normal inspection. Absent: tenderness, meningismus, lymphadenopathy Respiratory exam: Present: rales. Absent: respiratory distress, wheezes, rhonchi, stridor Cardiovascular Exam: Present: regular rate, normal rhythm, normal heart sounds. Absent: systolic murmur, diastolic murmur, rubs, gallop, clicks GI/Abdominal exam: Present: soft, normal bowel sounds. Absent: distended, tenderness, guarding, rebound, rigid Extremities exam: Present: normal inspection, full ROM, normal capillary refill. Absent: tenderness, pedal edema, joint swelling, calf tenderness Back exam: Present: normal inspection Neurological exam: Present: alert, oriented X3, CN II-XII intact Psychiatric exam: Present: normal affect, normal mood Skin exam: Present: warm, dry, intact, normal color. Absent: rash Course Vital Signs 04/01/22 04/01/22 04/01/22 12:55 16:30 16:49 Temperature 98.2 F Pulse Rate 66 92 67 Respiratory 18 22 Rate Blood Pressure 99/78 122/83 O2 Sat by Pulse 93 L 84 L Oximetry 04/01/22 04/01/22 16:59 17:00 Temperature Pulse Rate 61 80 Respiratory 20 Rate Blood Pressure 106/71 O2 Sat by Pulse 95 Oximetry EKG Findings - EKG Comments: EKG Findings:: EKG demonstrates sinus bradycardia with a rate of 49. TN interval 167. QRS 106. QTC of 375. No acute ST segment elevations or depressions Medical Decision Making - Medical Decision Making Arrival patient is placed into room 15. He does saturate 93% on room air however does dip down into the 80s on several occasions. He is placed on oxygen. Laboratory studies are conducted. Chest x-ray is performed which is read as cardiomegaly and mild pulmonary vascular congestion however BNP is low. She does have clinical symptoms of cough and chills with a left-sided infiltrate consistent with pneumonia. He to the brain is also performed as he has had multiple falls and is on anticoagulation. No acute findings. He is covered with antibiotics. Pro calcitonin is ordered. Recommended admission for treatment of pneumonia with psych consult pending. Patient did agree to this. Spoke with Dr. vigil who agreed to admit the patient and was taken to the floor into stable condition. - Lab Data Result diagrams: 04/05/22 05:50 04/05/22 05:50 Lab Results 04/01/22 04/01/22 04/01/22 Range/Units 13:14 13:44 13:44 WBC 10.8 H (3.8-10.6) k/uL RBC 5.65 (4.30-5.90) m/uL Hgb 17.5 (13.0-17.5) gm/dL Hct 53.9 H (39.0-53.0) % MCV 95.4 (80.0-100.0) fL MCH 31.0 (25.0-35.0) pg MCHC 32.5 (31.0-37.0) g/dL RDW 14.4 (11.5-15.5) % Plt Count 147 L (150-450) k/uL MPV 12.4 Neutrophils % 71 % Lymphocytes % 17 % Monocytes % 8 % Eosinophils % 1 % Basophils % 0 % Neutrophils # 7.7 (1.3-7.7) k/uL Lymphocytes # 1.8 (1.0-4.8) k/uL Monocytes # 0.9 (0-1.0) k/uL Eosinophils # 0.1 (0-0.7) k/uL Basophils # 0.0 (0-0.2) k/uL PT 12.9 H (9.0-12.0) sec INR 1.2 H (<1.2) Sodium (137-145) mmol/L Potassium (3.5-5.1) mmol/L Chloride (98-107) mmol/L Carbon Dioxide (22-30) mmol/L Anion Gap mmol/L BUN (9-20) mg/dL Creatinine (0.66-1.25) mg/dL Est GFR (CKD-EPI)AfAm (>60 ml/min/1.73 sqM) Est GFR (CKD-EPI)NonAf (>60 ml/min/1.73 sqM) Glucose (74-99) mg/dL Calcium (8.4-10.2) mg/dL Total Bilirubin (0.2-1.3) mg/dL AST (17-59) U/L ALT (4-49) U/L Alkaline Phosphatase (38-126) U/L Troponin I (0.000-0.034) ng/mL NT-Pro-B Natriuret Pep pg/mL Total Protein (6.3-8.2) g/dL Albumin (3.5-5.0) g/dL [place] 0.8 mmol/L 04/01/22 04/01/22 04/01/22 Range/Units 13:44 13:44 13:44 WBC (3.8-10.6) k/uL RBC (4.30-5.90) m/uL Hgb (13.0-17.5) gm/dL Hct (39.0-53.0) % MCV (80.0-100.0) fL MCH (25.0-35.0) pg MCHC (31.0-37.0) g/dL RDW (11.5-15.5) % Plt Count (150-450) k/uL MPV Neutrophils % % Lymphocytes % % Monocytes % % Eosinophils % % Basophils % % Neutrophils # (1.3-7.7) k/uL Lymphocytes # (1.0-4.8) k/uL Monocytes # (0-1.0) k/uL Eosinophils # (0-0.7) k/uL Basophils # (0-0.2) k/uL PT (9.0-12.0) sec INR (<1.2) Sodium 140 (137-145) mmol/L Potassium 4.1 (3.5-5.1) mmol/L Chloride 102 (98-107) mmol/L Carbon Dioxide 33 H (22-30) mmol/L Anion Gap 5 mmol/L BUN 24 H (9-20) mg/dL Creatinine 1.21 (0.66-1.25) mg/dL Est GFR (CKD-EPI)AfAm 72 (>60 ml/min/1.73 sqM) Est GFR (CKD-EPI)NonAf 63 (>60 ml/min/1.73 sqM) Glucose 105 H (74-99) mg/dL Calcium 9.1 (8.4-10.2) mg/dL Total Bilirubin 1.2 (0.2-1.3) mg/dL AST 35 (17-59) U/L ALT 23 (4-49) U/L Alkaline Phosphatase 104 (38-126) U/L Troponin I <0.012 (0.000-0.034) ng/mL NT-Pro-B Natriuret Pep 96 pg/mL Total Protein 7.0 (6.3-8.2) g/dL Albumin 3.9 (3.5-5.0) g/dL [place] mmol/L Disposition Clinical Impression: Pneumonia, Hypoxia, Visual hallucination, Insomnia, COPD (chronic obstructive pulmonary disease) Disposition: ADMITTED IP TO THIS HOSP Condition: Stable Is patient prescribed a controlled substance at d/c from ED?: No Time of Disposition: 17:11 Decision to Admit Reason: Admit from EC Decision Date: 04/01/22 Decision Time: 17:11
[2022-04-01] MEDS ORDERED: ACETAMINOPHEN TAB 325 MG TAB PO PRN (17:11)
[2022-04-01] MEDS ORDERED: NALOXONE 0.4 MG/ML 1 ML VIAL IV PRN (17:11)
[2022-04-01] MEDS ORDERED: methylPREDNISolone SOD SUCCI 125 MG/2 ML VIAL IV STA (17:25)
[2022-04-01] MEDS ORDERED: IPRATROPIUM-ALBUTEROL 3 ML NEB INHALATION PRN (19:41)
[2022-04-01] MEDS: SODIUM CHLORIDE 0.9% 1,000 ML IV SCH (19:56)
[2022-04-01] MEDS ORDERED: IPRATROPIUM-ALBUTEROL 3 ML NEB INHALATION SCH ×2 (20:00)
[2022-04-01] MEDS ORDERED: methylPREDNISolone SOD SUCCI 125 MG/2 ML VIAL IV ONE (20:00)
[2022-04-01] MEDS ORDERED: LITHIUM CARBONATE 300 MG CAP PO SCH (22:00)
[2022-04-01] MEDS: APIXABAN 5 MG TAB PO SCH (22:23)
[2022-04-01] MEDS: OLANZapine 5 MG TAB PO SCH (22:23)
[2022-04-01] MEDS: GABAPENTIN 100 MG CAP PO SCH (22:23)
[2022-04-01] MEDS: LATANOPROST 0.005% OPHTH DROPS 2.5 ML BTL LEFT EYE SCH (22:23)
[2022-04-02] MEDS: SODIUM CHLORIDE 0.9% 1,000 ML IV SCH ×3 (02:30→16:11)
[2022-04-02] MEDS: LEVOTHYROXINE 125 MCG TAB PO SCH (05:55)
[2022-04-02] MEDS: IPRATROPIUM-ALBUTEROL 3 ML NEB INHALATION SCH ×4 (07:46→19:26)
[2022-04-02] MEDS ORDERED: NON FORMULARY DRUG (Tiotropium 18 Mcg/Puff 1 PUFF Each) INHALATION SCH (08:00)
[2022-04-02] MEDS: METOPROLOL TARTRATE 50 MG TAB PO SCH ×3 (08:48→18:35)
[2022-04-02] MEDS: PARoxetine 20 MG TAB PO SCH (09:17)
[2022-04-02] MEDS: GABAPENTIN 100 MG CAP PO SCH ×3 (09:17→21:02)
[2022-04-02] MEDS: APIXABAN 5 MG TAB PO SCH ×2 (09:17→21:02)
[2022-04-02] MEDS: LORATADINE 10 MG TAB PO SCH (09:17)
[2022-04-02 10:08] LABS: African American GFR (CKD) 73.1 (60.0-200.0); Anion Gap 12.5 mmol/L (10.00-18.00); BUN/Creat Ratio 15.92 Ratio (12.00-20.00); Blood Urea Nitrogen 19.1 mg/dL (9.0-27.0); Calcium 8.9 mg/dL (8.7-10.3); Carbon Dioxide 26.5 mmol/L (20.0-27.5); Non-African American GFR(CKD) 63.1 (60.0-200.0); Potassium 4.3 mmol/L (3.5-5.5)
--- NOTE | 2022-04-02 12:54 | P.CNPUL ---
History of Present Illness Consult date: 04/02/22 Requesting physician: Олег Sanon Reason for consult: dyspnea, abnormal CXR/CT Chief complaint: Weakness, falls History of present illness: This is a pleasant 67-year-old male patient with a known history of bipolar disorder, hypertension, gastroesophageal reflux disease, COPD with chronic and ongoing tobacco dependence, atrial fibrillation anticoagulated with Eliquis. He was brought into the emergency room yesterday with referral having not slept in 4 nights and was having visual hallucinations and was found. He was having shortness of breath and trouble laying flat in bed. He had been using utilizing breathing treatments without much improvement. Chest x-ray reveals cardiomegaly and mild pulmonary vascular congestion. He has a small left pleural effusion and a left midlung infiltrate. He also has a large hiatal hernia. White count 10.8. Hemoglobin 17.5. Platelet count 147. INR 1.2. Sodium 142. Potassium 4.3. Bicarb 27. BUN 19. Creatinine 1.2. Glucose 127. Troponin negative 1. BNP 96. Pro-calcitonin 0.02. [place] virus by PCR not detected. He's been initiated on ceftriaxone, DuoNeb inhalations. Anticoagulated with Eliquis. He is seen today in consultation on the regular medical floor. He is currently sitting up in bed. Awake and alert in no acute distress. Maintaining O2 saturations in the 90s on 3 L/m per cannula. He has a dry nonproductive cough. He's been afebrile. Hemodynamically stable. Review of Systems REVIEW OF SYSTEMS: CONSTITUTIONAL: Generalized weakness, falls. Denies any recent significant weight loss or weight gain. EYES: Denies change in vision. EARS, NOSE, MOUTH, THROAT: Denies headaches, denies sore throat. CARDIOVASCULAR: Denies chest pain, palpitations or syncopal episodes. RESPIRATORY: Positive for shortness of breath, cough, congestion no hemoptysis. GASTROINTESTINAL: Denies change in appetite, denies abdominal pain GENITOURINARY: Denies hematuria, denies infections. MUSKULOSKELETAL: Denies pain, denies swelling. INTEGUMENTARY: Denies rash, denies eczema. NEUROLOGICAL: Denies recent memory loss, no recent seizure activity. PSYCHIATRIC: Denies anxiety, denies depression. HEMATOLOGIC/LYMPHATIC: Denies anemia, denies enlarged lymph nodes. Past Medical History Past Medical History: Atrial Fibrillation, COPD, Eye Disorder, Hyperlipidemia, Hypertension, Thyroid Disorder Additional Past Medical History / Comment(s): Sober for 10 years, hiatal hernia, glaucoma left eye, possible stroke behind left eye per opthamologist History of Any Multi-Drug Resistant Organisms: None Reported Additional Past Surgical History / Comment(s): HYDROCELE surg. 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 since use - Past Family History Mother Family Medical History: Diabetes Mellitus Father Family Medical History: Coronary Artery Disease (CAD) Medications and Allergies Home Medications Medication Instructions Recorded Confirmed Type Latanoprost/Pf [Latanoprost 0.005% 1 drop LEFT EYE HS 08/18/20 04/01/22 History Eye Drop] Levothyroxine Sodium 125 mcg PO DAILY 08/18/20 04/01/22 History [place] Carbonate 600 mg PO HS 08/18/20 04/01/22 History PARoxetine HCL [Paxil] 20 mg PO DAILY 08/18/20 04/01/22 History Albuterol Sulfate [Albuterol 1 puff PO RT-Q4H PRN 04/01/22 04/01/22 History Sulfate Hfa] Apixaban [Eliquis] 5 mg PO BID 04/01/22 04/01/22 History Aspirin EC [Ecotrin Low Dose] 81 mg PO DAILY@1400 04/01/22 04/01/22 History Furosemide [Lasix] 80 mg PO DAILY 04/01/22 04/01/22 History Gabapentin [Neurontin] 100 mg PO TID 04/01/22 04/01/22 History Loratadine [Claritin] 10 mg PO DAILY 04/01/22 04/01/22 History Metoprolol Tartrate [Lopressor] 50 mg PO TID-W/MEALS 04/01/22 04/01/22 History Minocycline [Minocin] 50 mg PO BID 04/01/22 04/01/22 History OLANZapine [ZyPREXA] 15 mg PO HS 04/01/22 04/01/22 History Tiotropium 18 Mcg/Puff [Spiriva] 1 puff INHALATION RT-DAILY 04/01/22 04/01/22 History Allergies Allergy/AdvReac Type Severity Reaction Status Date / Time No Known Allergies Allergy Verified 04/01/22 17:12 Physical Exam Vitals: Vital Signs Temp Pulse Pulse Resp BP BP Pulse Ox 04/02/22 11:22 70 04/02/22 11:13 59 L 04/02/22 08:00 98.4 F 50 L 17 111/71 94 L 04/02/22 07:58 54 L 04/02/22 07:47 64 04/02/22 07:44 90 L 04/02/22 00:50 97.8 F 52 L 17 105/78 94 L 04/01/22 20:08 17 04/01/22 19:55 98.1 F 53 L 17 121/87 94 L 04/01/22 19:33 64 04/01/22 19:26 56 L 04/01/22 17:00 80 20 106/71 95 04/01/22 16:59 61 04/01/22 16:49 67 04/01/22 16:30 92 22 122/83 84 L 04/01/22 12:55 98.2 F 66 18 99/78 93 L Intake and Output 04/01/22 04/02/22 04/02/22 22:59 06:59 14:59 Output Total 600 Balance -600 Output: Urine 600 Other: Voiding Method Urinal Urinal Weight 110.677 kg GENERAL EXAM: Alert, pleasant 67-year-old male patient, on 3 L nasal cannula, comfortable in no apparent distress. HEAD: Normocephalic. EYES: Normal reaction of pupils, equal size. NOSE: Clear with pink turbinates. THROAT: No erythema or exudates. NECK: No masses, no JVD. CHEST: No chest wall deformity. LUNGS: Equal air entry with crackles in the left lung base. Diminished CVS: S1 and S2 normal with no audible murmur, regular rhythm. ABDOMEN: No hepatosplenomegaly, normal bowel sounds, no guarding or rigidity. SPINE: No scoliosis or deformity SKIN: No rashes CENTRAL NERVOUS SYSTEM: No focal deficits, tone is normal in all 4 extremities. EXTREMITIES: There is no peripheral edema. No clubbing, no cyanosis. Peripheral pulses are intact. Results - Laboratory Findings CBC and BMP: 04/01/22 13:44 04/02/22 04:13 PT/INR, D-dimer PT 12.9 sec (9.0-12.0) H 04/01/22 13:44 INR 1.2 (<1.2) H 04/01/22 13:44 Abnormal lab findings: Abnormal Labs 04/01/22 04/01/22 04/01/22 13:44 13:44 13:44 WBC 10.8 H Hct 53.9 H Plt Count 147 L PT 12.9 H INR 1.2 H Carbon Dioxide 33 H BUN 24 H Glucose 105 H 04/02/22 04:13 WBC Hct Plt Count PT INR Carbon Dioxide BUN Glucose 127 H - Diagnostic Findings Chest x-ray: image reviewed Assessment and Plan Assessment: Acute hypoxic respiratory failure secondary to an exacerbation of chronic obstructive pulmonary disease, possible early infiltrate in the left midlung, atelectasis left lung base, elevated left hemidiaphragm. Procalcitonin 0.02. Continue ceftriaxone for now. Chronic and ongoing tobacco dependence Generalized weakness and falls Paroxysmal atrial fibrillation, anticoagulated with Eliquis Large hiatal hernia Bipolar disorder Hypothyroidism Hypertension History of anxiety/panic disorder Plan: The patient was seen and evaluated Chest x-ray, labs and medications reviewed We'll continue ceftriaxone for now Follow-up pro calcitonin Add Symbicort, continue DuoNeb's Add IV Solu-Medrol Anticoagulated with Eliquis Titrate the FiO2 as tolerated Follow-up chest x-ray in a.m. We will continue to follow and make further recommendations based on his clinical status I have personally seen and examined the patient, performed the documentation and the assessment and plan as written. Number of minutes spent on the visit: 20.
[2022-04-02] MEDS: ASPIRIN 81 MG PO SCH (13:01)
[2022-04-02] MEDS: methylPREDNISolone SOD SUCCI 125 MG/2 ML VIAL IV SCH ×2 (13:01→18:35)
[2022-04-02 13:18] LABS: Basophils # (A) 0.02 X 10*3/uL (0.00-0.10); Basophils % (A) 0.2 %; Eosinophils # (A) 0 X 10*3/uL (0.04-0.35); Eosinophils % (A) 0 %; HCT 55.4 % (39.6-50.0); HGB 16.9 g/dL (13.0-17.0); Immature Grans, Automated 0.6 %; Lymphocytes # (A) 0.81 X 10*3/uL (0.90-5.00); Lymphocytes % (A) 9.2 %; MCH 29.7 pg (27.0-32.0); MCHC 30.5 g/dL (32.0-37.0); MCV 97.4 fL (80.0-97.0); Monocytes % (A) 1.1 %; NRBC Per 100 WBC 0 /100 WBCS (0.0-0.0); Neutrophils # (A) 7.84 X 10*3/uL (1.80-7.70); Neutrophils % (A) 88.9 %; Platelet Count 129 X 10*3/uL (140-440); RBC 5.69 X 10*6/uL (4.40-5.60); RDW 14.2 % (11.5-14.5); WBC 8.82 X 10*3/uL (4.50-10.00)
--- NOTE | 2022-04-02 14:43 | P.HPIM ---
History of Present Illness H&P Date: 04/02/22 Chief Complaint: Weakness This is a 67-year-old patient who follows with Dr. Alvin Villela. Chronic stable medical conditions include hyperlipidemia, hypothyroid, bipolar, atrial fibrillation. Patient is a smoker. Patient not able to really give a good history. They would answer some questions. As per ER physician note Dr. Malone: "67-year-old male past medical history of A. fib on eliquis, COPD, hypertension, bipolar 1 presents emergency department for weakness and multiple falls. Family is at bedside and helps provide the history. States that he has not slept in the past 4 days, is having visual hallucinations and is falling. Patient reports that he is not sleeping at night because he becomes extremely short of breath when laying down. COPD. Has been using his breathing treatments without relief. Admits to a productive cough with chills. No chest pain. No recent head trauma but did have a fall with head injury. He was seen by his primary care provider and had a CT performed which did not demonstrate any acute intracranial process. He has had recent change in his Zyprexa dosing so family unsure if his behavior is due to this medication change. No history of heart failure. Has some lower extremity edema which has been constant." Patient himself is not really sure why he is here.. Some shortness of breath. Some cough. Appetite fair. No change in bowel habit. Does feel weak. Normally able to walk. Less than sister Marifer. Review of systems: GEN.: Tired EYES: None HEENT: None NECK: None RESPIRATORY: As above CARDIOVASCULAR: As above GASTROINTESTINAL: None GENITOURINARY: None MUSCULOSKELETAL: Some joint pains LYMPHATICS: None HEMATOLOGICAL: None PSYCHIATRY: Forgetful NEUROLOGICAL: None Past medical history to include: COPD, hyperlipidemia, hypothyroid, bipolar, atrial fibrillation Social history: Lives with sister Marifer, smokes a pack a day for many years, no alcohol Physical examination: VITAL SIGNS: 98.2, 66, 18, 99/78, 3% room air GENERAL: [BMI 30.5, laying in bed, tired and lethargic.. EYES: Pupils equal. Conjunctiva normal. HEENT: External appearance of nose and ears normal, oral cavity grossly normal. NECK: JVD not raised; masses not palpable. HEART: First and second heart sounds are normal; no edema. LUNGS: Respiratory rate increased; decreased breath sounds or wheezing. ABDOMEN: Soft, nontender, liver spleen not palpable, no masses palpable. PSYCH: Able tonsil simple questions.l. MUSCULOSKELETAL:No Clubbing/cyanosis;muscles-grossly intact. Evidence of OA NEUROLOGICAL: Cranial nerves grossly intact; no facial asymmetry, power and sensation grossly intact. LYMPHATICS: No lymph nodes palpable in the axilla and neck INVESTIGATIONS, reviewed in the clinical context: White count 10.8 hemoglobin 17.5 platelets 147 potassium 4.1 BUN 24 creatinine 1.21 Troponin I less than 0.012. ProBNP 96. Pro-calcitonin 0.02 [place] 0.8 COVID 19 PCR: Not detected EKG tracing personally reviewed by me-bowel sinus rhythm. Rate 49. Chest x-ray film personally reviewed by me-cardiomegaly. Possible infiltrate. Possible hiatal hernia. Assessment and plan: -Acute hypoxic respiratory failure secondary to COPD exacerbation Supplement oxygen -Paroxysmal atrial fibrillation flutter, currently sinus rhythm Telemetry. Eliquis 5 mg twice a day. Lopressor 50 mg 3 times a day -Acute COPD exacerbation in a current smoker DuoNeb 4 times a day. IV Solu-Medrol. Symbicort. -Chronic congestive heart failure from systolic dysfunction EF 40-45%- Follow clinically. Decrease IV fluids. 2-D echocardiogram -Hypothyroid Levothyroxine 125 g a day -Essential hypertension Lopressor 50 mg 3 times a day -Bipolar disorder Paxil 20 mg a day. Zyprexa 15 mg daily at bedtime. [place] 600 mg daily at bedtime DuoNeb. IV Solu-Medrol. Resume all medications. 2-D echocardiogram. Consult pulmonary. Given the complexity and severity of patient's condition expect the patient to be in the hospital at least for 2 overnights Past Medical History Past Medical History: Atrial Fibrillation, COPD, Eye Disorder, Hyperlipidemia, Hypertension, Thyroid Disorder Additional Past Medical History / Comment(s): Sober for 10 years, hiatal hernia, glaucoma left eye, possible stroke behind left eye per opthamologist History of Any Multi-Drug Resistant Organisms: None Reported Additional Past Surgical History / Comment(s): HYDROCELE surg. 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 since use - Past Family History Mother Family Medical History: Diabetes Mellitus Father Family Medical History: Coronary Artery Disease (CAD) Medications and Allergies Home Medications Medication Instructions Recorded Confirmed Type Latanoprost/Pf [Latanoprost 0.005% 1 drop LEFT EYE HS 08/18/20 04/01/22 History Eye Drop] Levothyroxine Sodium 125 mcg PO DAILY 08/18/20 04/01/22 History [place] Carbonate 600 mg PO HS 08/18/20 04/01/22 History PARoxetine HCL [Paxil] 20 mg PO DAILY 08/18/20 04/01/22 History Albuterol Sulfate [Albuterol 1 puff PO RT-Q4H PRN 04/01/22 04/01/22 History Sulfate Hfa] Apixaban [Eliquis] 5 mg PO BID 04/01/22 04/01/22 History Aspirin EC [Ecotrin Low Dose] 81 mg PO DAILY@1400 04/01/22 04/01/22 History Furosemide [Lasix] 80 mg PO DAILY 04/01/22 04/01/22 History Gabapentin [Neurontin] 100 mg PO TID 04/01/22 04/01/22 History Loratadine [Claritin] 10 mg PO DAILY 04/01/22 04/01/22 History Metoprolol Tartrate [Lopressor] 50 mg PO TID-W/MEALS 04/01/22 04/01/22 History Minocycline [Minocin] 50 mg PO BID 04/01/22 04/01/22 History OLANZapine [ZyPREXA] 15 mg PO HS 04/01/22 04/01/22 History Tiotropium 18 Mcg/Puff [Spiriva] 1 puff INHALATION RT-DAILY 04/01/22 04/01/22 History Allergies Allergy/AdvReac Type Severity Reaction Status Date / Time No Known Allergies Allergy Verified 04/01/22 17:12 Physical Exam Vitals: Vital Signs Temp Pulse Pulse Resp BP BP Pulse Ox 04/02/22 08:00 98.4 F 50 L 17 111/71 94 L 04/02/22 07:58 54 L 04/02/22 07:47 64 04/02/22 07:44 90 L 04/02/22 00:50 97.8 F 52 L 17 105/78 94 L 04/01/22 20:08 17 04/01/22 19:55 98.1 F 53 L 17 121/87 94 L 04/01/22 19:33 64 04/01/22 19:26 56 L 04/01/22 17:00 80 20 106/71 95 04/01/22 16:59 61 04/01/22 16:49 67 04/01/22 16:30 92 22 122/83 84 L 04/01/22 12:55 98.2 F 66 18 99/78 93 L Intake and Output 04/01/22 04/02/22 04/02/22 22:59 06:59 14:59 Output Total 600 Balance -600 Output: Urine 600 Other: Voiding Method Urinal Urinal Weight 110.677 kg Results CBC & Chem 7: 04/02/22 04:13 04/02/22 04:13 Labs: Abnormal Lab Results - Last 24 Hours (Table) 04/01/22 04/01/22 04/01/22 Range/Units 13:44 13:44 13:44 WBC 10.8 H (3.8-10.6) k/uL Hct 53.9 H (39.0-53.0) % Plt Count 147 L (150-450) k/uL PT 12.9 H (9.0-12.0) sec INR 1.2 H (<1.2) Carbon Dioxide 33 H (22-30) mmol/L BUN 24 H (9-20) mg/dL Glucose 105 H (74-99) mg/dL 04/02/22 Range/Units 04:13 WBC (3.8-10.6) k/uL Hct (39.0-53.0) % Plt Count (150-450) k/uL PT (9.0-12.0) sec INR (<1.2) Carbon Dioxide (22-30) mmol/L BUN (9-20) mg/dL Glucose 127 H (74-99) mg/dL Thrombosis Risk Factor Assmnt - Choose All That Apply Any of the Below Risk Factors Present?: Yes Each Factor Represents 1 point: Abnormal pulmonary function (COPD), Obesity (BMI >25) Other Risk Factors: Yes Each Risk Factor Represents 2 Points: Age 61-74 years Thrombosis Risk Factor Assessment Total Risk Factor Score: 4 Thrombosis Risk Factor Assessment Level: Moderate Risk
[2022-04-02] MEDS: NICOTINE 21MG/24HR PATCH TRANSDERM SCH (16:11)
[2022-04-02] MEDS: SYMBICORT 160-4.5 MCG INHALER INHALATION SCH (19:53)
[2022-04-02] MEDS: OLANZapine 5 MG TAB PO SCH (21:02)
[2022-04-02] MEDS: LATANOPROST 0.005% OPHTH DROPS 2.5 ML BTL LEFT EYE SCH (21:02)
[2022-04-03] MEDS: methylPREDNISolone SOD SUCCI 125 MG/2 ML VIAL IV SCH ×5 (00:10→23:50)
[2022-04-03] MEDS: LEVOTHYROXINE 125 MCG TAB PO SCH (05:50)
[2022-04-03] MEDS ORDERED: methylPREDNISolone SOD SUCCI 125 MG/2 ML VIAL ONE (06:00)
[2022-04-03] MEDS ORDERED: LEVOTHYROXINE 125 MCG TAB ONE (06:00)
--- NOTE | 2022-04-03 07:27 | XR ---
EXAMINATION TYPE: XR chest 1V portable DATE OF EXAM: 04/03/2022 CLINICAL HISTORY: Difficulty breathing and infiltrate progress study. TECHNIQUE: Single AP portable upright view of the chest is obtained. COMPARISON: Chest x-ray from 2 days earlier FINDINGS: Elevated left hemidiaphragm with left basilar opacity redemonstrated. There is new right b asilar opacity. Stable mild cardiomegaly with atherosclerotic thoracic aorta. Upper lungs remain sunny r without pneumothorax. Osseous structures are intact. IMPRESSION: Cardiomegaly with elevated left hemidiaphragm and persistent small left pleural effusion with associated left basilar atelectasis and/or infiltrate. No significant change from prior. New rig ht basilar atelectasis and/or developing acute infiltrate is noted on current study.
[2022-04-03] MEDS: SYMBICORT 160-4.5 MCG INHALER INHALATION SCH ×2 (08:12→19:53)
[2022-04-03] MEDS: IPRATROPIUM-ALBUTEROL 3 ML NEB INHALATION SCH ×4 (08:12→19:53)
[2022-04-03] MEDS: METOPROLOL TARTRATE 50 MG TAB PO SCH ×3 (08:37→17:13)
[2022-04-03] MEDS: GABAPENTIN 100 MG CAP PO SCH ×3 (08:37→21:12)
[2022-04-03] MEDS: APIXABAN 5 MG TAB PO SCH ×2 (08:37→21:12)
[2022-04-03] MEDS: PARoxetine 20 MG TAB PO SCH (08:37)
[2022-04-03] MEDS: LORATADINE 10 MG TAB PO SCH (08:37)
[2022-04-03] MEDS: NICOTINE 21MG/24HR PATCH TRANSDERM SCH (08:38)
[2022-04-03] MEDS: SODIUM CHLORIDE 0.9% 1,000 ML IV SCH (10:03)
--- NOTE | 2022-04-03 12:27 | P.CN ---
Psychiatric Consult - . Consult date: 04/03/22 Consult:: 04/03/22 12:26 IDENTIFYING DATA: This patient is a single, retired, 67-year-old male with significant history of bipolar disorder who presents to the hospital on 04/01/2022, resenting with weakness and multiple falls. HISTORY OF PRESENT ILLNESS: The patient presented to the hospital on 04/01/2022, brought into the hospital by family for weakness and multiple falls. Reportedly, the patient has not been sleeping for the past 4 days and was experiencing significant visual hallucinations and having multiple episodes of falling. The patient reported that he was not sleeping at bedtime because he felt extreme short of breath when he was lying down. The patient reportedly had a recent change in his dose of Zyprexa as well. The patient was admitted medically for acute hypoxic respiratory failure seco ndary to COPD exacerbation and psychiatry was consulted for his manic like symptoms. Upon evaluation on the medical floor, the patient reportedly slept for many hours and received Solu-Medrol and then again had symptoms of wyatt and elevated anxiety. Currently, the patient is reporting that he is feeling significantly better in regards to both his medical and psychiatric symptoms. Psychiatrically, the patient is not endorsing any suicidal or homicidal ideation, intention, and/or plan. He is currently not endorsing any auditory or visual hallucinations however did report that over the past week prior to this admission he was experiencing significant visual hallucinations that were very vivid and felt "extremely real." The patient is able to identify that these were visual hallucinations. He does admit that he has been sleeping very poorly and that this may have been triggered into his manic symptoms. Furthermore, the patient does acknowledge that steroid medications have also caused him to feel elevated anxiety and may have exacerbated his psychiatric symptoms as well. He is currently vehemently denying any suicidal or homicidal ideation, intention, and/or plan. He is not reporting any paranoia or other delusions. The patient denies any significant symptoms of wyatt at this time. He reports that he is now sleeping better, is not having any racing thoughts, is not having any grandiose delusions, and is not displaying any increased goal-directed activity or behavior. Regards substance use, the patient does admit to heavy history of alcohol use however states that he has been sober for many years. He reports that he spent much of his time being incarcerated for 40 years and that alcohol played a huge part in his incarceration. He does admit to tobacco use. He states that he initially quit however recently started picking up his cigarette use again. The patient acknowledges that this has been causing him significant problems in regards to his general medical health which in turn affects his psychiatric health. He denies any other drug use. PAST PSYCHIATRIC HISTORY: Patient has a history of bipolar disorder and anxiety.. Patient reports home medication regimen of Paxil 20 mg daily for depression/anxiety, Zyprexa 15 mg at bedtime for mood stabilization/psychosis, lithium 600 mg by mouth at bedtime for mood stabilization. The patient is open with [facility]. Patient reports that has been more than 10 years since his last inpatient psychiatric admission. He reports a prior attempt at suicide 20- 30 years ago by cutting his wrists. PAST MEDICAL HISTORY: Past Medical History: Atrial Fibrillation, COPD, Eye Disorder, Hyperlipidemia, Hypertension, Thyroid Disorder Additional Past Medical History / Comment(s): Sober for 10 years, hiatal hernia, glaucoma left eye, possible stroke behind left eye per opthamologist History of Any Multi-Drug Resistant Organisms: None Reported Additional Past Surgical History / Comment(s): HYDROCELE surg. 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 since use ALLERGIES: NO KNOWN DRUG ALLERGIES. CHEMICAL DEPENDENCY HISTORY: as per HPI. FAMILY PSYCHIATRIC/SUBSTANCE USE HISTORY: Unable to obtain SOCIAL HISTORY: Patient has been sober for almost 11 years. He reports 40 years of incarceration. He is currently retired. He lives with his family. He is single. MENTAL STATUS EXAM: General Appearance: Patient appears to be stated age is alert, pleasant, and cooperative. Patient appears to have fair hygiene and grooming wearing hospital gown with fair eye contact. Behavior: Patient is calmly sitting down in his chair without any agitated behavior. Speech: Patient's speech is fluent and nonpressured. Mood/Affect: Patient reports their mood is "feeling better", affect is congruent to bright. Suicidality/Homicidality: Patient denies any suicidal or homicidal ideation, intention, and/or plan. Perceptions: Patient denies any visual hallucinations and denies any auditory hallucinations Though content/process: There is no evidence of any delusional thought content and thought process is linear and goal-directed. Memory and concentration: AOX3, grossly intact for the purposes of this session. Can spell "WORLD" backwards Judgment and insight: Improved Vital Signs Temp 98.3 F 04/03/22 08:00 Pulse 65 04/03/22 08:23 Resp 16 04/03/22 08:00 BP 132/83 04/03/22 08:00 Pulse Ox 90 L 04/03/22 08:14 FiO2 Intake & Output 04/02/22 04/03/22 04/03/22 18:59 06:59 18:59 Other: Voiding Method Urinal Urinal # Voids 2 2 Laboratory Results - Last 24 Hours 04/02/22 04:13 WBC 8.82 RBC 5.69 H Hgb 16.9 Hct 55.4 H MCV 97.4 H MCH 29.7 MCHC 30.5 L RDW 14.2 Plt Count 129 L Plt Count Comment DECREASED A MPV 13.0 H Immature Gran % (Auto) 0.6 Absolute Nucleated RBC 0 Neutrophils % 88.9 Lymphocytes % 9.2 Monocytes % 1.1 Eosinophils % 0 Basophils % 0.2 Immature Gran # 0.05 H Neutrophils # 7.84 H Lymphocytes # 0.81 L Monocytes # 0.10 L Eosinophils # 0 L Basophils # 0.02 NRBC/100 WBC Diff 0 IMPRESSIONS: -Bipolar disorder, manic episode, likely exacerbated by insomnia and steroid administration -Anxiety disorder, unspecified -Acute hypoxic respiratory failure second day to COPD exacerbation -Hypothyroidism PLAN: -Continue your medical management. -At this time patient DOES NOT meet criteria for inpatient psychiatric admission. Currently, the patient is not presenting as overtly psychotic or manic. He is currently alert and oriented in all spheres and is denying any suicidal or homicidal ideation, intention, and/or plan. He remains future and goal oriented. 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 Start melatonin 6 mg daily at bedtime for insomnia. Okay to hold lithium for now. May restart in the outpatient setting. -Recommend outpatient psychiatric follow-up. Patient is currently open with [facility]. -Patient was counseled at length on abstaining from all substances including tobacco, alcohol, and marijuana. Patient has been 11 years sober. Despite his long periods of sobriety, the patient is interested in going to AA meetings. He appears to be future and goal oriented. -Psychiatry will sign off at this point, please contact with any questions. Thank you for this consult. 04/03/22 12:26
[2022-04-03] MEDS ORDERED: RX INFO: IV CONTRAST WAS GIVEN 1 EACH MISC MISCELLANE PRN (12:36)
--- NOTE | 2022-04-03 12:42 | P.PN ---
Subjective Progress Note Date: 04/03/22 This is a pleasant 67-year-old male patient with a known history of bipolar disorder, hypertension, gastroesophageal reflux disease, COPD with chronic and ongoing tobacco dependence, atrial fibrillation anticoagulated with Eliquis. He was brought into the emergency room yesterday with referral having not slept in 4 nights and was having visual hallucinations and was found. He was having shortness of breath and trouble laying flat in bed. He had been using utilizing breathing treatments without much improvement. Chest x-ray reveals cardiomegaly and mild pulmonary vascular congestion. He has a small left pleural effusion and a left midlung infiltrate. He also has a large hiatal hernia. White count 10.8. Hemoglobin 17.5. Platelet count 147. INR 1.2. Sodium 142. Potassium 4.3. Bicarb 27. BUN 19. Creatinine 1.2. Glucose 127. Troponin negative 1. BNP 96. Pro-calcitonin 0.02. Woodard virus by PCR not detected. He's been initiated on ceftriaxone, DuoNeb inhalations. Anticoagulated with Eliquis. He is seen today in consultation on the regular medical floor. He is currently s itting up in bed. Awake and alert in no acute distress. Maintaining O2 saturations in the 90s on 3 L/m per cannula. He has a dry nonproductive cough. He's been afebrile. Hemodynamically stable. 04/03/2022, the patient is being seen for a follow-up. The patient was Hospital as for worsening shortness of breath and a left midlung pneumonia. 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 Note that this diaphragmatic elevation was chronic. An underlying hiatal hernia cannot be completely excluded. The patient is currently on O2 on room air with a pulse ox of 94%. White cell count is at 8.8 with hemoglobin of 16.9. Electrolytes are all within normal limits. Pro-calcitonin level was at 0.02. Coronary 19 testing was negative. The patient is currently on DuoNeb updrafts, Symbicort maintenance, IV Rocephin, IV Solu-Medrol and he is also on a nicotine patch. Objective - Vital Signs Vital signs: Vital Signs Temp 98.3 F 04/03/22 08:00 Pulse 57 L 04/03/22 12:32 Resp 16 04/03/22 08:00 BP 126/81 04/03/22 12:32 Pulse Ox 94 L 04/03/22 12:32 FiO2 Intake & Output 04/02/22 04/03/22 04/03/22 18:59 06:59 18:59 Other: Voiding Method Urinal Urinal # Voids 2 2 - Exam GENERAL EXAM: Alert, pleasant 67-year-old male patient, on 3 L nasal cannula, comfortable in no apparent distress. HEAD: Normocephalic. EYES: Normal reaction of pupils, equal size. NOSE: Clear with pink turbinates. THROAT: No erythema or exudates. NECK: No masses, no JVD. CHEST: No chest wall deformity. LUNGS: Equal air entry with crackles in the left lung base. Diminished CVS: S1 and S2 normal with no audible murmur, regular rhythm. ABDOMEN: No hepatosplenomegaly, normal bowel sounds, no guarding or rigidity. SPINE: No scoliosis or deformity SKIN: No rashes CENTRAL NERVOUS SYSTEM: No focal deficits, tone is normal in all 4 extremities. EXTREMITIES: There is no peripheral edema. No clubbing, no cyanosis. Peripheral pulses are intact. - Labs CBC & Chem 7: 04/02/22 04:13 04/02/22 04:13 Labs: Abnormal Lab Results - Last 24 Hours (Table) 04/02/22 Range/Units 04:13 RBC 5.69 H (4.40-5.60) X 10*6/uL Hct 55.4 H (39.6-50.0) % MCV 97.4 H (80.0-97.0) fL MCHC 30.5 L (32.0-37.0) g/dL Plt Count 129 L (140-440) X 10*3/uL Plt Count Comment DECREASED A MPV 13.0 H (9.5-12.2) fL Immature Gran # 0.05 H (0.00-0.04) X 10*3/uL Neutrophils # 7.84 H (1.80-7.70) X 10*3/uL Lymphocytes # 0.81 L (0.90-5.00) X 10*3/uL Monocytes # 0.10 L (0.20-1.00) X 10*3/uL Eosinophils # 0 L (0.04-0.35) X 10*3/uL Microbiology - Last 24 Hours (Table) 04/02/22 15:57 Gram Stain - Preliminary Sputum Sputum Culture - Preliminary 04/01/22 16:30 Blood Culture - Preliminary Blood No Growth after 24 hours 04/01/22 16:15 Blood Culture - Preliminary Blood No Growth after 24 hours Assessment and Plan Plan: Acute hypoxic respiratory failure secondary to an exacerbation of chronic obstructive pulmonary disease, possible early infiltrate in the left midlung, atelectasis left lung base, elevated left hemidiaphragm. Procalcitonin 0.02. Continue ceftriaxone for now. Convinced that the patient may have a left midlung pneumonia. Left hemidiaphragm is obscured and there is probably a large hiatal hernia with questionable diaphragmatic paralysis. He is a chronic smoker. We'll investigate this with a CAT scan of the chest. Chronic and ongoing tobacco dependence Generalized weakness and falls Paroxysmal atrial fibrillation, anticoagulated with Eliquis Large hiatal hernia Bipolar disorder Hypothyroidism Hypertension History of anxiety/panic disorder Plan: Contrast-enhanced CAT scan of the chest We'll continue ceftriaxone for now Follow-up pro calcitonin was low Continue Symbicort, continue DuoNeb's and IV Solu-Medrol Anticoagulated with Eliquis Titrate the FiO2 as tolerated
[2022-04-03] MEDS: ASPIRIN 81 MG PO SCH (15:54)
--- NOTE | 2022-04-03 18:33 | CA ---
Transthoracic Echo Report Name: Vinod Geller Age: 67 Gender: M : 1955 Exam Date: 04/03/2022 11:53 Exam Location: [facility] Ht (in): 75 Wt (lb): 244 Ordering Physician: Олег Sanon MD Attending/Referring Phys: Substation Operator Apprentice Christine Saxena RDCS Procedure CPT: Indications: Assess LV Function Cardiac Hx: bradycardia Technical Quality: Fair Contrast 1: Total Dose (mL): Contrast 2: Total Dose (mL): MEASUREMENTS (Male / Female) Normal Values 2D ECHO LV Diastolic Diameter PLAX 4.8 cm 4.2 - 5.9 / 3.9 - 5.3 cm LV Systolic Diameter PLAX 3.0 cm IVS Diastolic Thickness 1.0 cm 0.6 - 1.0 / 0.6 - 0.9 cm LVPW Diastolic Thickness 1.1 cm 0.6 - 1.0 / 0.6 - 0.9 cm LV Relative Wall Thickness 0.4 RV Internal Dim ED PLAX 2.4 cm LA Systolic Diameter LX 3.1 cm 3.0 - 4.0 / 2.7 - 3.8 cm LA Volume 60.5 cm??? 18 - 58 / 22 - 52 cm??? M-MODE Aortic Root Diameter MM 3.9 cm MV E Point Septal Separation 0.7 cm AV Cusp Separation MM 2.2 cm DOPPLER AV Peak Velocity 144.9 cm/s AV Peak Gradient 8.4 mmHg MV Area PHT 3.9 cm??? Mitral E Point Velocity 95.6 cm/s Mitral A Point Velocity 70.4 cm/s Mitral E to A Ratio 1.4 MV Deceleration Time 195.1 ms MV E' Velocity 10.1 cm/s Mitral E to MV E' Ratio 9.5 TR Peak Velocity 305.8 cm/s TR Peak Gradient 37.4 mmHg Right Ventricular Systolic Press 41.9 mmHg FINDINGS Left Ventricle Left ventricular ejection fraction is estimated at 55-60 %. Left ventricular cavity size normal. Left ventricular wall thickness normal. Right Ventricle Normal right ventricular size and function. Mild pulmonary hypertension. Right Atrium Normal right atrial size. Left Atrium Mildly increased left atrial volume. Mildly increased left atrial area. Mitral Valve Mitral valve thickened. Aortic Valve Trileaflet aortic valve. No aortic valve stenosis or regurgitation. Tricuspid Valve Mild tricuspid regurgitation. Pulmonic Valve Pulmonic valve not well visualized. Pericardium Normal pericardium. Aorta Mild aortic dilatation at the level of the sinuses of valsalva (root). CONCLUSIONS Normal LV size and systolic function Mildly dilated aortic root Left atrial enlargement, mild Previewed by: Dr. Franklyn Hart MD (Electronically Signed) Final Date: 03 Apr 2022 18:32
--- NOTE | 2022-04-03 19:30 | CT ---
EXAMINATION TYPE: CT chest w con DATE OF EXAM: 04/03/2022 COMPARISON: No previous CT scan is available for comparison HISTORY: SOB CT DLP: 594.3 mGycm Automated exposure control for dose reduction was used. TECHNIQUE: CT scan of the chest is performed with IV Contrast, patient injected with 100 mL of Isovue 300. FINDINGS: LUNGS: COPD changes, mainly involving the upper lobes. Bilateral basal subsegmental pulmonary atelect asis, more on the left side. Smaller atelectasis seen along the left oblique fissure and in the lingu la. Groundglass opacity seen at the inferior aspect of the right upper lobe, possibly inflammatory/in fectious in etiology however subtle neoplastic process cannot be excluded. Recommend precautionary fo llow-up CT scan in 3 months for reassessment. 8mm nodule is seen at the lateral aspect of the right l ower lobe. Loss of volume of the left lower lobe. Patent trachea and main bronchi. Small left pleural effusion. MEDIASTINUM: There a large hiatal hernia. The hernial defect measures 5.8 x 7.5 cm. The hernia contai ns peritoneal fat, the entire stomach, portion of the transverse colon and gastric vessels. A small b owel loop is seen tethered towards the hernial neck. No evidence of gastric obstruction. The hernia c auses mass effect along the posterior aspect of the heart and the adjacent portion of the lungs. The ascending aorta measures 4 cm. The pulmonary trunk measures 3.5 cm suggestive of pulmonary hypertensi on. Scattered arterial atherosclerotic calcifications. No pericardial effusion. No pathologically enl arged lymph nodes in the chest. OTHER: Degenerative changes of the mid to lower thoracic spine. Anterolisthesis of T1 over T2. Anter ior wedging of T1 vertebral body with upper endplate depression of T2, possibly chronic, please corre late clinically. IMPRESSION: 1. Large hiatal hernia with mass effect as detailed above, for surgical consultation. 2. 8mm right lateral basal pulmonary nodule with groundglass opacity at the inferior aspect of the ri ght upper lobe, possibly inflammatory/infectious in etiology however neoplastic process cannot be exc luded. Recommend follow-up CT scan in 2-3 months for reassessment. Alternatively, PET scan assessment can be considered. Other incidental findings as described above.
[2022-04-03] MEDS: OLANZapine 5 MG TAB PO SCH (21:11)
[2022-04-03] MEDS: LATANOPROST 0.005% OPHTH DROPS 2.5 ML BTL LEFT EYE SCH (21:12)
[2022-04-03] MEDS: MELATONIN 3 MG TABLET PO SCH (21:12)
--- NOTE | 2022-04-03 23:47 | P.PN ---
Subjective Progress Note Date: 04/03/22 This is a 67-year-old patient who follows with Dr. Alvin Villela. Chronic stable medical conditions include hyperlipidemia, hypothyroid, bipolar, atrial fibrillation. Patient is a smoker. Patient not able to really give a good history. They would answer some questions. As per ER physician note Dr. Malone: "67-year-old male past medical history of A. fib on eliquis, COPD, hypertension, bipolar 1 presents emergency department for weakness and multiple falls. Family is at bedside and helps provide the history. States that he has not slept in the past 4 days, is having visual hallucinations and is falling. Patient reports that he is not sleeping at night because he becomes extremely short of b reath when laying down. COPD. Has been using his breathing treatments without relief. Admits to a productive cough with chills. No chest pain. No recent head trauma but did have a fall with head injury. He was seen by his primary care provider and had a CT performed which did not demonstrate any acute intracranial process. He has had recent change in his Zyprexa dosing so family unsure if his behavior is due to this medication change. No history of heart failure. Has some lower extremity edema which has been constant." Patient himself is not really sure why he is here.. Some shortness of breath. Some cough. Appetite fair. No change in bowel habit. Does feel weak. Normally able to walk. Less than sister Marifer. 04/03/2022 Patient is seen and evaluated in follow-up this morning reports to not being able to sleep at all and has been exhausted and has not slept for days prior to admission as well. Patient is currently maintained on room air and continues with some shortness of breath although not requiring oxygen. Patient is maintained on breathing inhalational treatments and will continue along with IV steroids. Pulmonary also consulted. Psychiatry also consulted for auditory hallucinations along with behavioral changes noted by family at home. Patient is also started on IV ceftriaxone and will continue for now. Recommend repeat labs. Review of systems: Constitutional: reports of fatigue and exhaustion, fever, or chills Cardiovascular: No reports of chest pain or palpitations Respiratory: reports of shortness of breath and cough GI: No reports of nausea, vomiting, or diarrhea : No reports of dysuria or retention Neurovascular: No reports of weakness or numbness All medications have been reviewed Active Medications Acetaminophen (Acetaminophen Tab 325 Mg Tab) 650 mg PO Q6HR PRN PRN Reason: Mild Pain or Fever > 100.5 Albuterol/Ipratropium (Ipratropium-Albuterol 3 Ml Neb) 3 ml INHALATION RT-Q2H PRN PRN Reason: Shortness Of Breath Or Wheezing Last Admin: 04/02/22 23:20 Dose: 3 ml Albuterol/Ipratropium (Ipratropium-Albuterol 3 Ml Neb) 3 ml INHALATION RT-QID [facility] Last Admin: 04/03/22 15:24 Dose: Not Given Apixaban (Apixaban 5 Mg Tab) 5 mg PO BID [facility]; Protocol Last Admin: 04/03/22 08:37 Dose: 5 mg Aspirin (Aspirin 81 Mg) 81 mg PO DAILY@1400 [facility] Last Admin: 04/02/22 13:01 Dose: 81 mg Budesonide/Formoterol Fumarate (Symbicort 160-4.5 Mcg Inhaler) 2 puff INHALATION RT-BID [facility] Last Admin: 04/03/22 08:12 Dose: 2 puff Gabapentin (Gabapentin 100 Mg Cap) 100 mg PO TID [facility] Last Admin: 04/03/22 08:37 Dose: 100 mg Ceftriaxone Sodium 2 gm/ (Sodium Chloride) 50 mls @ 100 mls/hr IVPB Q24H [facility]; Protocol Stop: 04/04/22 20:29 Last Admin: 04/02/22 19:13 Dose: 100 mls/hr Latanoprost (Latanoprost 0.005% Ophth Drops 2.5 Ml Btl) 1 drops LEFT EYE [facility] Last Admin: 04/02/22 21:02 Dose: 1 drops Levothyroxine Sodium (Levothyroxine 125 Mcg Tab) 125 mcg PO DAILY@0630 [facility] Last Admin: 04/03/22 05:50 Dose: Not Given Loratadine (Loratadine 10 Mg Tab) 10 mg PO DAILY [facility] Last Admin: 04/03/22 08:37 Dose: 10 mg Melatonin (Melatonin 3 Mg Tablet) 6 mg PO HS [facility] Methylprednisolone Sodium Succinate (Methylprednisolone Sod Succi 125 Mg/2 Ml Vial) 60 mg IV Q6HR [facility] Last Admin: 04/03/22 12:34 Dose: 60 mg Metoprolol Tartrate (Metoprolol Tartrate 50 Mg Tab) 50 mg PO TID-W/MEALS [facility] Last Admin: 04/03/22 12:34 Dose: 50 mg Miscellaneous Information (Pneumonia Protocol Utilized 1 Each Misc) 1 each PO ONCE PRN PRN Reason: Per Protocol Miscellaneous Information (Rx Info: Iv Contrast Was Given 1 Each Misc) 1 each MISCELLANE DAILY PRN PRN Reason: Per Protocol Stop: 04/05/22 12:36 Naloxone HCl (Naloxone 0.4 Mg/Ml 1 Ml Vial) 0.2 mg IV Q2M PRN PRN Reason: Opioid Reversal Nicotine (Nicotine 21mg/24hr Patch) 1 patch TRANSDERM DAILY [facility] Last Admin: 04/03/22 08:38 Dose: 1 patch Olanzapine (Olanzapine 5 Mg Tab) 15 mg PO HS [facility] Last Admin: 04/02/22 21:02 Dose: 15 mg Paroxetine HCl (Paroxetine 20 Mg Tab) 20 mg PO DAILY [facility] Last Admin: 04/03/22 08:37 Dose: 20 mg Physical examination: GENERAL: 67 year old male, alert, awake and oriented x3. somewhat anxious, well developed, well nourished, obese EYES: Pupils equal. Conjunctiva normal. HEENT: External appearance of nose and ears normal, oral cavity grossly normal. NECK: JVD not raised; masses not palpable. HEART: First and second heart sounds are normal; no edema. LUNGS: Respiratory rate increased; decreased breath sounds with some expiratory wheezing and crackles noted at the bases ABDOMEN: Soft, nontender, normal bowel sounds noted, no masses palpable. PSYCH: Able to answer simple questions. somewhat anxious MUSCULOSKELETAL:No Clubbing/cyanosis;muscles-grossly intact. Evidence of OA NEUROLOGICAL: Cranial nerves grossly intact; no facial asymmetry, power and sensation grossly intact. LYMPHATICS: No lymph nodes palpable in the axilla and neck Assessment: -Acute hypoxic respiratory failure secondary to COPD exacerbation -Paroxysmal atrial fibrillation flutter, currently sinus rhythm -Acute COPD exacerbation -continued ongoing nicotine dependence -Chronic congestive heart failure with diastolic dysfunction EF 55-60% -Hypothyroidism -Essential hypertension -Bipolar disorder -GI prophylaxis -DVT prophylaxis: on eliquis -Full code Plan: Recommend to continue with DuoNeb treatments along with IV steroids, pulmonary following Psychiatry consulted and pending at this time Recommend melatonin for sleep at night as needed Encouraged increase activity as tolerated The impression and plan of care has been dictated by Jennifer Agarwal, Nurse Practitioner as directed. Dr. Yonathan MD I have performed a history and examination and MDM of this patient, discussed the same with the dictator, and agree with the dictator's assessment and plan as written ,documented as a scribe. Based on total visit time, I have performed more than 50% of the visit. Objective - Vital Signs Vital signs: Vital Signs Temp 98.3 F 04/03/22 08:00 Pulse 65 04/03/22 08:23 Resp 16 04/03/22 08:00 BP 132/83 04/03/22 08:00 Pulse Ox 90 L 04/03/22 08:14 FiO2 Intake & Output 04/02/22 04/03/22 04/03/22 18:59 06:59 18:59 Other: Voiding Method Urinal Urinal # Voids 2 2 - Labs CBC & Chem 7: 04/02/22 04:13 04/02/22 04:13 Labs: Abnormal Lab Results - Last 24 Hours (Table) 04/02/22 04/02/22 Range/Units 04:13 04:13 RBC 5.69 H (4.40-5.60) X 10*6/uL Hct 55.4 H (39.6-50.0) % MCV 97.4 H (80.0-97.0) fL MCHC 30.5 L (32.0-37.0) g/dL Plt Count 129 L (140-440) X 10*3/uL Plt Count Comment DECREASED A MPV 13.0 H (9.5-12.2) fL Immature Gran # 0.05 H (0.00-0.04) X 10*3/uL Neutrophils # 7.84 H (1.80-7.70) X 10*3/uL Lymphocytes # 0.81 L (0.90-5.00) X 10*3/uL Monocytes # 0.10 L (0.20-1.00) X 10*3/uL Eosinophils # 0 L (0.04-0.35) X 10*3/uL Glucose 127 H (70-110) mg/dL Microbiology - Last 24 Hours (Table) 04/02/22 15:57 Gram Stain - Preliminary Sputum Sputum Culture - Preliminary 04/01/22 16:30 Blood Culture - Preliminary Blood No Growth after 24 hours 05/21/22 16:15 Blood Culture - Preliminary Blood No Growth after 24 hours
[2022-04-04] MEDS ORDERED: METOPROLOL TARTRATE 25 MG TAB PO SCH (01:21)
[2022-04-04] MEDS ORDERED: METOPROLOL TARTRATE 25 MG TAB PO STA (01:21)
[2022-04-04] MEDS: LEVOTHYROXINE 125 MCG TAB PO SCH (05:30)
[2022-04-04] MEDS: methylPREDNISolone SOD SUCCI 125 MG/2 ML VIAL IV SCH ×3 (05:30→16:59)
[2022-04-04] MEDS: LORATADINE 10 MG TAB PO SCH (06:55)
[2022-04-04] MEDS: GABAPENTIN 100 MG CAP PO SCH ×3 (06:55→22:32)
[2022-04-04] MEDS: NICOTINE 21MG/24HR PATCH TRANSDERM SCH (06:56)
[2022-04-04] MEDS: PARoxetine 20 MG TAB PO SCH (06:56)
[2022-04-04] MEDS: METOPROLOL TARTRATE 25 MG TAB PO SCH ×2 (06:56→22:31)
[2022-04-04] MEDS: APIXABAN 5 MG TAB PO SCH ×2 (06:57→22:32)
[2022-04-04 07:04] LABS: Basophils % (A) 0 %; Eosinophils % (A) 0 %; HGB 17.5 gm/dL (13.0-17.5); Hypochromasia Slight; Lymphocytes # (A) 0.9 k/uL (1.0-4.8); Lymphocytes % (A) 6 %; MCH 30.5 pg (25.0-35.0); MCHC 30.6 g/dL (31.0-37.0); MCV 99.7 fL (80.0-100.0); Mean Platelet Volume 12.3; Monocytes # (A) 0.6 k/uL (0-1.0); Monocytes % (A) 4 %; Neutrophils # (A) 14.2 k/uL (1.3-7.7); Neutrophils % (A) 90 %; Platelet Count 139 k/uL (150-450); RBC 5.75 m/uL (4.30-5.90); WBC 15.8 k/uL (3.8-10.6)
[2022-04-04 07:15] LABS: African American GFR (CKD) 73 (>60 ml/min/1.73 sqM); Anion Gap 6 mmol/L; Blood Urea Nitrogen 27 mg/dL (9-20); Calcium 9.5 mg/dL (8.4-10.2); Carbon Dioxide 31 mmol/L (22-30); Chloride 107 mmol/L (98-107); Glucose 112 mg/dL (74-99); HCT 57.3 % (39.0-53.0); Non-African American GFR(CKD) 63 (>60 ml/min/1.73 sqM); Potassium 5.1 mmol/L (3.5-5.1); Sodium 144 mmol/L (137-145)
[2022-04-04 08:03] LABS: Large Platelets Present
[2022-04-04] MEDS: SYMBICORT 160-4.5 MCG INHALER INHALATION SCH ×2 (09:09→20:07)
[2022-04-04] MEDS: IPRATROPIUM-ALBUTEROL 3 ML NEB INHALATION SCH ×5 (09:09→20:06)
[2022-04-04] MEDS: FLUCONAZOLE 100 MG TAB PO SCH (09:27)
--- NOTE | 2022-04-04 13:21 | P.PN ---
Subjective Progress Note Date: 04/04/22 Principal diagnosis: Shortness of breath This is a pleasant 67-year-old male patient with a known history of bipolar disorder, hypertension, gastroesophageal reflux disease, COPD with chronic and ongoing tobacco dependence, atrial fibrillation anticoagulated with Eliquis. He was brought into the emergency room yesterday with referral having not slept in 4 nights and was having visual hallucinations and was found. He was having shortness of breath and trouble laying flat in bed. He had been using utilizing breathing treatments without much improvement. Chest x-ray reveals cardiomegaly and mild pulmonary vascular congestion. He has a small left pleural effusion and a left midlung infiltrate. He also has a large hiatal hernia. White count 10.8. Hemoglobin 17.5. Platelet count 147. INR 1.2. Sodium 142. Potassium 4.3. Bicarb 27. BUN 19. Creatinine 1.2. Glucose 127. Troponin negative 1. BNP 96. Pro-calcitonin 0.02. Woodard virus by PCR not detected. He's been initiated on ceftriaxone, DuoNeb inhalations. Anticoagulated with Eliquis. He is seen today in consultation on the regular medical floor. He is currently sitting up in bed. Awake and alert in no acute distress. Maintaining O2 saturations in the 90s on 3 L/m per cannula. He has a dry nonproductive cough. He's been afebrile. Hemodynamically stable. 04/03/2022, the patient is being seen for a follow-up. The patient was Hospital as for worsening shortness of breath and a left midlung pneumonia. 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 Note that this diaphragmatic elevation was chronic. An underlying hiatal hernia cannot be completely excluded. The patient is currently on O2 on room air with a pulse ox of 94%. White cell count is at 8.8 with hemoglobin of 16.9. Electrolytes are all within normal limits. Pro-calcitonin level was at 0.02. Coronary 19 testing was negative. The patient is currently on DuoNeb updrafts, Symbicort maintenance, IV Rocephin, IV Solu-Medrol and he is also on a nicotine patch. On 04/04/2022 patient seen in follow-up on medical surgical floor, he is breathing much easier, less dyspneic, last bronchospastic. Vital signs are stable, room air pulse ox 96%, afebrile., His had no acute events overnight, no complaints of chest discomfort, Q continues on nebulized bronchodilators, is on IV Solu-Medrol, Diflucan, Rocephin. CT of the chest has been completed and reviewed showing large hiatal hernia with mass effect continuing peritoneal fact, the entire stomach, portion of the transverse colon and gastric vessels. Lung windows showed COPD involving the upper lobes, bilateral basal subsegmental pulmonary atelectasis more on the left side and smaller atelectasis along the left oblique fissure within the lingula. There was 8 mm right lateral basal pulmonary nodules and groundglass opacity at the inferior aspect of the right upper lobe, possibly inflammatory infectious in etiology with the recommendation of 2-3 months follow-up. Echocardiogram showed EF of 55-60%, mild pulmonary hypertension. Today's labs have been reviewed, white blood cell count 15.8, hemoglobin is 17.5, sodium is 144, potassium 5.1, chloride is 107, CO2 31, B1 is 27 creatinine is 1.2. level came back negative at 0.02, covid-19 pcr was negative. procal was within normal limits at 96. Objective - Vital Signs Vital signs: Vital Signs Temp 97.6 F 04/04/22 07:21 Pulse 100 04/04/22 12:24 Resp 20 04/04/22 12:24 BP 112/76 04/04/22 07:21 Pulse Ox 96 04/04/22 07:21 FiO2 Intake & Output 04/03/22 04/04/22 04/04/22 18:59 06:59 18:59 Other: Voiding Method Urinal # Voids 3 2 - Exam GENERAL EXAM: Alert, very pleasant, 67-year-old white male, sitting up in his bed, in no acute distress, with pulse ox of 96% comfortable in no apparent distress. HEAD: Normocephalic/atraumatic. EYES: Normal reaction of pupils, equal size. Conjunctiva pink, sclera white. NOSE: Clear with pink turbinates. THROAT: No erythema or exudates. NECK: No masses, no JVD, no thyroid enlargement, no adenopathy. CHEST: No chest wall deformity. Symmetrical expansion. LUNGS: Equal air entry with diffuse wheezes CVS: Regular rate and rhythm, normal S1 and S2, no gallops, no murmurs, no rubs ABDOMEN: Soft, nontender. No hepatosplenomegaly, normal bowel sounds, no guarding or rigidity. EXTREMITIES: No clubbing, no edema, no cyanosis, 2+ pulses and upper and lower extremities. MUSCULOSKELETAL: Muscle strength and tone normal. SPINE: No scoliosis or deformity SKIN: No rashes CENTRAL NERVOUS SYSTEM: Alert and oriented -3. No focal deficits, tone is normal in all 4 extremities. PSYCHIATRIC: Alert and oriented -3. Appropriate affect. Intact judgment and insight. - Labs CBC & Chem 7: 04/04/22 05:39 04/04/22 05:39 Labs: Abnormal Lab Results - Last 24 Hours (Table) 04/04/22 04/04/22 Range/Units 05:39 05:39 WBC 15.8 H (3.8-10.6) k/uL Hct 57.3 H* (39.0-53.0) % MCHC 30.6 L (31.0-37.0) g/dL Plt Count 139 L (150-450) k/uL Neutrophils # 14.2 H (1.3-7.7) k/uL Lymphocytes # 0.9 L (1.0-4.8) k/uL Carbon Dioxide 31 H (22-30) mmol/L BUN 27 H (9-20) mg/dL Glucose 112 H (74-99) mg/dL Microbiology - Last 24 Hours (Table) 04/02/22 15:57 Gram Stain - Final Sputum Sputum Culture - Final Alana albicans Yeast species 04/01/22 16:30 Blood Culture - Preliminary Blood No Growth after 48 hours 04/01/22 16:15 Blood Culture - Preliminary Blood No Growth after 48 hours Assessment and Plan Plan: Assessment: Acute hypoxic respiratory failure secondary to an exacerbation of chronic obst ructive pulmonary disease, possible early infiltrate in the left midlung, atelectasis left lung base, elevated left hemidiaphragm. Procalcitonin 0.02. Continue ceftriaxone for now. Convinced that the patient may have a left midlung pneumonia. Left hemidiaphragm is obscured and there is probably a large hiatal hernia with questionable diaphragmatic paralysis. He is a chronic smoker. CT chest showed large hiatal hernia with mass effect, 8mm right lateral basal pulmonary nodule possibly inflammatory/infectious in etiology, recommendation to follow up in 3 months Chronic and ongoing tobacco dependence Generalized weakness and falls Paroxysmal atrial fibrillation, anticoagulated with Eliquis Large hiatal hernia Bipolar disorder Hypothyroidism Hypertension History of anxiety/panic disorder Plan: Patient is improving Breathing easier Continue IV steroids, nebulized bronchodilators and antibiotics CT of the chest has been reviewed We'll follow-up on the pulmonary nodule in the right lung in the 3 months Increase activity as tolerated May consider for discharge home in next 24 hours if continues to improve I have personally seen and examined the patient, performed the documentation and the assessment and plan as written. Number of minutes spent on the visit: [10] I have personally seen and examined the patient and reviewed the documentation. I performed a joint evaluation with the nurse practitioner in this evaluation was done more than 20 minutes. I fully agree with the documentation above and the plan of care. The patient was reassured whether the CAT scan. The patient has a large hiatal hernia. May need to be surgically repaired with a later stage. Optimize COPD. Continue bronchodilators. Continue steroids. They've millimeters pulmonary nodule seen on the right is essentially nonspecific, likely a benign lesion. Patient was reassured. Time with Patient: Less than 30
[2022-04-04] MEDS: ASPIRIN 81 MG PO SCH (15:01)
--- NOTE | 2022-04-04 18:38 | P.PN ---
Subjective Progress Note Date: 04/04/22 This is a 67-year-old patient who follows with Dr. Alvin Villela. Chronic stable medical conditions include hyperlipidemia, hypothyroid, bipolar, atrial fibrillation. Patient is a smoker. Patient not able to really give a good history. They would answer some questions. As per ER physician note Dr. Malone: "67-year-old male past medical history of A. fib on eliquis, COPD, hypertension, bipolar 1 presents emergency department for weakness and multiple falls. Family is at bedside and helps provide the history. States that he has not slept in the past 4 days, is having visual hallucinations and is falling. Patient reports that he is not sleeping at night because he becomes extremely short of b reath when laying down. COPD. Has been using his breathing treatments without relief. Admits to a productive cough with chills. No chest pain. No recent head trauma but did have a fall with head injury. He was seen by his primary care provider and had a CT performed which did not demonstrate any acute intracranial process. He has had recent change in his Zyprexa dosing so family unsure if his behavior is due to this medication change. No history of heart failure. Has some lower extremity edema which has been constant." Patient himself is not really sure why he is here.. Some shortness of breath. Some cough. Appetite fair. No change in bowel habit. Does feel weak. Normally able to walk. Less than sister Marifer. 04/03/2022 Patient is seen and evaluated in follow-up this morning reports to not being able to sleep at all and has been exhausted and has not slept for days prior to admission as well. Patient is currently maintained on room air and continues with some shortness of breath although not requiring oxygen. Patient is maintained on breathing inhalational treatments and will continue along with IV steroids. Pulmonary also consulted. Psychiatry also consulted for auditory hallucinations along with behavioral changes noted by family at home. Patient is also started on IV ceftriaxone and will continue for now. Recommend repeat labs. 04/04/2022 Patient is seen this morning and is being maintained on breathing inhalational treatments along with ceftriaxone and IV steroids with pulmonary following. Patient was evaluated by psychiatry as well and medications have been adjusted. Patient reports to being able to get some sleep although nursing staff reports he slept one hour last night. Patient is tolerating diet with no reports of nausea or vomiting noted. Patient is currently maintained on room air. Patient had CT chest done by pulmonary and showed 8mm right lateral basal pulmonary nodule right upper lobe along with groundglass opacities and incidental finding of large hiatal hernia with mass effect. Heart rate elevated overnight and will continue to monitor closely. Metoprolol adjusted. Patient is afebrile. Sputum showing isha and will add oral diflucan. Review of systems: Constitutional: reports of less fatigue, no reports of fever, or chills Cardiovascular: No reports of chest pain or palpitations Respiratory: reports of shortness of breath and cough with some improvement in his breathing. GI: No reports of nausea, vomiting, or diarrhea : No reports of dysuria or retention Neurovascular: No reports of weakness or numbness All medications have been reviewed Active Medications Acetaminophen (Acetaminophen Tab 325 Mg Tab) 650 mg PO Q6HR PRN PRN Reason: Mild Pain or Fever > 100.5 Albuterol/Ipratropium (Ipratropium-Albuterol 3 Ml Neb) 3 ml INHALATION RT-Q2H PRN PRN Reason: Shortness Of Breath Or Wheezing Last Admin: 04/02/22 23:20 Dose: 3 ml Albuterol/Ipratropium (Ipratropium-Albuterol 3 Ml Neb) 3 ml INHALATION RT-QID [facility] Last Admin: 04/04/22 16:35 Dose: 3 ml Apixaban (Apixaban 5 Mg Tab) 5 mg PO BID [facility]; Protocol Last Admin: 04/04/22 06:57 Dose: 5 mg Aspirin (Aspirin 81 Mg) 81 mg PO DAILY@1400 [facility] Last Admin: 04/04/22 15:01 Dose: 81 mg Budesonide/Formoterol Fumarate (Symbicort 160-4.5 Mcg Inhaler) 2 puff INHALATION RT-BID [facility] Last Admin: 04/04/22 09:09 Dose: 2 puff Fluconazole (Fluconazole 100 Mg Tab) 100 mg PO DAILY [facility]; Protocol Last Admin: 04/04/22 09:27 Dose: 100 mg Gabapentin (Gabapentin 100 Mg Cap) 100 mg PO TID [facility] Last Admin: 04/04/22 15:01 Dose: 100 mg Ceftriaxone Sodium 2 gm/ (Sodium Chloride) 50 mls @ 100 mls/hr IVPB Q24H [facility]; Protocol Stop: 04/04/22 20:29 Last Admin: 04/03/22 19:00 Dose: 100 mls/hr Latanoprost (Latanoprost 0.005% Ophth Drops 2.5 Ml Btl) 1 drops LEFT EYE [facility] Last Admin: 04/03/22 21:12 Dose: 1 drops Levothyroxine Sodium (Levothyroxine 125 Mcg Tab) 125 mcg PO DAILY@0630 [facility] Last Admin: 04/04/22 05:30 Dose: 125 mcg Loratadine (Loratadine 10 Mg Tab) 10 mg PO DAILY [facility] Last Admin: 04/04/22 06:55 Dose: 10 mg Melatonin (Melatonin 3 Mg Tablet) 6 mg PO [facility] Last Admin: 04/03/22 21:12 Dose: 6 mg Methylprednisolone Sodium Succinate (Methylprednisolone Sod Succi 125 Mg/2 Ml Vial) 60 mg IV Q6HR [facility] Last Admin: 04/04/22 16:59 Dose: 60 mg Metoprolol Tartrate (Metoprolol Tartrate 25 Mg Tab) 25 mg PO BID [facility] Last Admin: 04/04/22 06:56 Dose: 25 mg Miscellaneous Information (Pneumonia Protocol Utilized 1 Each Misc) 1 each PO ONCE PRN PRN Reason: Per Protocol Miscellaneous Information (Rx Info: Iv Contrast Was Given 1 Each Misc) 1 each MISCELLANE DAILY PRN PRN Reason: Per Protocol Stop: 04/05/22 12:36 Naloxone HCl (Naloxone 0.4 Mg/Ml 1 Ml Vial) 0.2 mg IV Q2M PRN PRN Reason: Opioid Reversal Nicotine (Nicotine 21mg/24hr Patch) 1 patch TRANSDERM DAILY [facility] Last Admin: 04/04/22 06:56 Dose: 1 patch Olanzapine (Olanzapine 5 Mg Tab) 15 mg PO [facility] Last Admin: 04/03/22 21:11 Dose: 15 mg Paroxetine HCl (Paroxetine 20 Mg Tab) 20 mg PO DAILY [facility] Last Admin: 04/04/22 06:56 Dose: 20 mg Physical examination: GENERAL: 67 year old male, alert, awake and oriented x3.less anxious today, well developed, well nourished, obese EYES: Pupils equal. Conjunctiva normal. HEENT: External appearance of nose and ears normal, oral cavity grossly normal. NECK: JVD not raised; masses not palpable. HEART: First and second heart sounds are normal; no edema. LUNGS: Respiratory rate improved; decreased breath sounds with some expiratory wheezing and crackles noted at the bases ABDOMEN: Soft, obese, nontender, normal bowel sounds noted, no masses palpable. PSYCH: Able to answer simple questions. less anxious today MUSCULOSKELETAL:No Clubbing/cyanosis;muscles-grossly intact. Evidence of OA NEUROLOGICAL: Cranial nerves grossly intact; no facial asymmetry, power and sensation grossly intact. LYMPHATICS: No lymph nodes palpable in the axilla and neck Assessment: -Acute hypoxic respiratory failure secondary to COPD exacerbation -Paroxysmal atrial fibrillation flutter, currently sinus rhythm -Acute COPD exacerbation -continued ongoing nicotine dependence -Chronic congestive heart failure with diastolic dysfunction EF 55-60% -Hypothyroidism -Essential hypertension -Bipolar disorder -GI prophylaxis -DVT prophylaxis: on eliquis -Full code Plan: Recommend to continue with DuoNeb treatments along with IV steroids, pulmonary following and had ct chest which will require 2-3 month follow up on 8mm right lateral basal pulmonary nodule right upper lobe noted. Psychiatry consulted and following and making medication adjustments. Encouraged increase activity as tolerated Possible discharge in 24-48 hours The impression and plan of care has been dictated by Jennifer Agarwal, Nurse Practitioner as directed. Dr. Nelly MD I have performed a history and examination and MDM of this patient, discussed the same with the dictator, and agree with the dictator's assessment and plan as written ,documented as a scribe. Based on total visit time, I have performed more than 50% of the visit. Objective - Vital Signs Vital signs: Vital Signs Temp 97.6 F 04/04/22 07:21 Pulse 96 04/04/22 07:21 Resp 17 04/04/22 07:21 BP 112/76 04/04/22 07:21 Pulse Ox 96 04/04/22 07:21 FiO2 Intake & Output 04/03/22 04/04/22 04/04/22 18:59 06:59 18:59 Other: Voiding Method Urinal # Voids 3 2 - Labs CBC & Chem 7: 04/04/22 05:39 04/04/22 05:39 Labs: Abnormal Lab Results - Last 24 Hours (Table) 04/04/22 04/04/22 Range/Units 05:39 05:39 WBC 15.8 H (3.8-10.6) k/uL Hct 57.3 H* (39.0-53.0) % MCHC 30.6 L (31.0-37.0) g/dL Plt Count 139 L (150-450) k/uL Neutrophils # 14.2 H (1.3-7.7) k/uL Lymphocytes # 0.9 L (1.0-4.8) k/uL Carbon Dioxide 31 H (22-30) mmol/L BUN 27 H (9-20) mg/dL Glucose 112 H (74-99) mg/dL Microbiology - Last 24 Hours (Table) 04/02/22 15:57 Gram Stain - Final Sputum Sputum Culture - Final Isha albicans Yeast species 04/01/22 16:30 Blood Culture - Preliminary Blood No Growth after 48 hours 04/01/22 16:15 Blood Culture - Preliminary Blood No Growth after 48 hours
[2022-04-04] MEDS: LATANOPROST 0.005% OPHTH DROPS 2.5 ML BTL LEFT EYE SCH (22:31)
[2022-04-04] MEDS: MELATONIN 3 MG TABLET PO SCH (22:31)
[2022-04-04] MEDS: OLANZapine 5 MG TAB PO SCH (22:31)
[2022-04-05] MEDS: methylPREDNISolone SOD SUCCI 125 MG/2 ML VIAL IV SCH ×4 (00:39→16:41)
[2022-04-05] MEDS: LEVOTHYROXINE 125 MCG TAB PO SCH (05:28)
[2022-04-05 06:43] LABS: Basophils % (A) 0 %; Eosinophils % (A) 0 %; HGB 16.9 gm/dL (13.0-17.5); Hypochromasia Slight; Lymphocytes % (A) 7 %; MCH 29.9 pg (25.0-35.0); MCHC 30.3 g/dL (31.0-37.0); MCV 98.6 fL (80.0-100.0); Mean Platelet Volume 12.1; Monocytes # (A) 0.5 k/uL (0-1.0); Monocytes % (A) 3 %; Neutrophils % (A) 89 %; Platelet Count 138 k/uL (150-450); RBC 5.66 m/uL (4.30-5.90); RDW 14.4 % (11.5-15.5); WBC 14.6 k/uL (3.8-10.6)
[2022-04-05 06:45] LABS: HCT 55.9 % (39.0-53.0)
[2022-04-05 06:47] LABS: African American GFR (CKD) 74 (>60 ml/min/1.73 sqM); Anion Gap 6 mmol/L; Blood Urea Nitrogen 31 mg/dL (9-20); Calcium 8.9 mg/dL (8.4-10.2); Carbon Dioxide 25 mmol/L (22-30); Chloride 109 mmol/L (98-107); Glucose 136 mg/dL (74-99); Non-African American GFR(CKD) 64 (>60 ml/min/1.73 sqM); Potassium 4.8 mmol/L (3.5-5.1); Sodium 140 mmol/L (137-145)
[2022-04-05 07:26] LABS: Large Platelets Present
[2022-04-05] MEDS: IPRATROPIUM-ALBUTEROL 3 ML NEB INHALATION SCH ×4 (07:52→21:29)
[2022-04-05] MEDS: SYMBICORT 160-4.5 MCG INHALER INHALATION SCH ×2 (07:52→21:29)
[2022-04-05] MEDS: METOPROLOL TARTRATE 25 MG TAB PO SCH ×2 (07:56→20:47)
[2022-04-05] MEDS: LORATADINE 10 MG TAB PO SCH (07:56)
[2022-04-05] MEDS: NICOTINE 21MG/24HR PATCH TRANSDERM SCH (07:56)
[2022-04-05] MEDS: APIXABAN 5 MG TAB PO SCH ×2 (07:56→20:45)
[2022-04-05] MEDS: FLUCONAZOLE 100 MG TAB PO SCH (07:56)
[2022-04-05] MEDS: GABAPENTIN 100 MG CAP PO SCH ×3 (07:57→20:48)
[2022-04-05] MEDS: PARoxetine 20 MG TAB PO SCH (07:57)
--- NOTE | 2022-04-05 11:51 | P.PN ---
Subjective Progress Note Date: 04/05/22 This is a pleasant 67-year-old male patient with a known history of bipolar disorder, hypertension, gastroesophageal reflux disease, COPD with chronic and ongoing tobacco dependence, atrial fibrillation anticoagulated with Eliquis. He was brought into the emergency room yesterday with referral having not slept in 4 nights and was having visual hallucinations and was found. He was having shortness of breath and trouble laying flat in bed. He had been using utilizing breathing treatments without much improvement. Chest x-ray reveals cardiomegaly and mild pulmonary vascular congestion. He has a small left pleural effusion and a left midlung infiltrate. He also has a large hiatal hernia. White count 10.8. Hemoglobin 17.5. Platelet count 147. INR 1.2. Sodium 142. Potassium 4.3. Bicarb 27. BUN 19. Creatinine 1.2. Glucose 127. Troponin negative 1. BNP 96. Pro-calcitonin 0.02. Woodard virus by PCR not detected. He's been initiated on ceftriaxone, DuoNeb inhalations. Anticoagulated with Eliquis. He is seen today in consultation on the regular medical floor. He is currently sit ting up in bed. Awake and alert in no acute distress. Maintaining O2 saturations in the 90s on 3 L/m per cannula. He has a dry nonproductive cough. He's been afebrile. Hemodynamically stable. 04/03/2022, the patient is being seen for a follow-up. The patient was Hospital as for worsening shortness of breath and a left midlung pneumonia. 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 Note that this diaphragmatic elevation was chronic. An underlying hiatal hernia cannot be completely excluded. The patient is currently on O2 on room air with a pulse ox of 94%. White cell count is at 8.8 with hemoglobin of 16.9. Electrolytes are all within normal limits. Pro-calcitonin level was at 0.02. Coronary 19 testing was negative. The patient is currently on DuoNeb updrafts, Symbicort maintenance, IV Rocephin, IV Solu-Medrol and he is also on a nicotine patch. On 04/04/2022 patient seen in follow-up on medical surgical floor, he is breathing much easier, less dyspneic, last bronchospastic. Vital signs are stable, room air pulse ox 96%, afebrile., His had no acute events overnight, no complaints of chest discomfort, Q continues on nebulized bronchodilators, is on IV Solu-Medrol, Diflucan, Rocephin. CT of the chest has been completed and reviewed showing large hiatal hernia with mass effect continuing peritoneal fact, the entire stomach, portion of the transverse colon and gastric vessels. Lung windows showed COPD involving the upper lobes, bilateral basal subsegmental pulmonary atelectasis more on the left side and smaller atelectasis along the left oblique fissure within the lingula. There was 8 mm right lateral basal pulmonary nodules and groundglass opacity at the inferior aspect of the right upper lobe, possibly inflammatory infectious in etiology with the recommendation of 2-3 months follow-up. Echocardiogram showed EF of 55-60%, mild pulmonary hypertension. Today's labs have been reviewed, white blood cell count 15.8, hemoglobin is 17.5, sodium is 144, potassium 5.1, chloride is 107, CO2 31, B1 is 27 creatinine is 1.2. level came back negative at 0.02, covid-19 pcr was negative. procal was within normal limits at 96. Artery 2021, the patient is feeling well. The patient remains on a combination of bronchodilators and IV Solu-Medrol. The patient is also on accommodation Rocephin and Diflucan. CAT scan of the chest as mentioned showed a large hiatal hernia and the patient's COPD is being treated here in the hospital and is being further optimized. No new complaints. Pulse ox is in order of 96% oxygen. He is on DuoNeb nebulized treatments around the clock and is also on Symbicort as maintenance and IV Solu Medrol 60 mg every 6 hours. Objective - Vital Signs Vital signs: Vital Signs Temp 98.4 F 04/05/22 07:37 Pulse 74 04/05/22 08:03 Resp 17 04/05/22 07:37 BP 145/93 04/05/22 07:37 Pulse Ox 92 L 04/05/22 07:52 FiO2 Intake & Output 04/04/22 04/05/22 04/05/22 18:59 06:59 18:59 Intake Total 1080 1080 Balance 1080 1080 Intake: Oral 1080 1080 Other: Voiding Method Urinal # Voids 3 3 - Exam GENERAL EXAM: Alert, very pleasant, 67-year-old white male, sitting up in his bed, in no acute distress, with pulse ox of 96% comfortable in no apparent distress. HEAD: Normocephalic/atraumatic. EYES: Normal reaction of pupils, equal size. Conjunctiva pink, sclera white. NOSE: Clear with pink turbinates. THROAT: No erythema or exudates. NECK: No masses, no JVD, no thyroid enlargement, no adenopathy. CHEST: No chest wall deformity. Symmetrical expansion. LUNGS: Equal air entry with diffuse wheezes CVS: Regular rate and rhythm, normal S1 and S2, no gallops, no murmurs, no rubs ABDOMEN: Soft, nontender. No hepatosplenomegaly, normal bowel sounds, no guarding or rigidity. EXTREMITIES: No clubbing, no edema, no cyanosis, 2+ pulses and upper and lower extremities. MUSCULOSKELETAL: Muscle strength and tone normal. SPINE: No scoliosis or deformity SKIN: No rashes CENTRAL NERVOUS SYSTEM: Alert and oriented -3. No focal deficits, tone is normal in all 4 extremities. PSYCHIATRIC: Alert and oriented -3. Appropriate affect. Intact judgment and insight. - Labs CBC & Chem 7: 04/05/22 05:50 04/05/22 05:50 Labs: Abnormal Lab Results - Last 24 Hours (Table) 04/05/22 04/05/22 Range/Units 05:50 05:50 WBC 14.6 H (3.8-10.6) k/uL Hct 55.9 H (39.0-53.0) % MCHC 30.3 L (31.0-37.0) g/dL Plt Count 138 L (150-450) k/uL Neutrophils # 13.0 H (1.3-7.7) k/uL Chloride 109 H (98-107) mmol/L BUN 31 H (9-20) mg/dL Glucose 136 H (74-99) mg/dL Microbiology - Last 24 Hours (Table) 04/01/22 16:30 Blood Culture - Preliminary Blood No Growth after 72 hours 04/01/22 16:15 Blood Culture - Preliminary Blood No Growth after 72 hours 04/02/22 15:57 Gram Stain - Final Sputum Sputum Culture - Final Alana albicans Yeast species Assessment and Plan Plan: Assessment: Acute hypoxic respiratory failure secondary to an exacerbation of chronic obstru ctive pulmonary disease, possible early infiltrate in the left midlung, atelectasis left lung base, elevated left hemidiaphragm. Procalcitonin 0.02. Continue ceftriaxone for now. Convinced that the patient may have a left midlung pneumonia. Left hemidiaphragm is obscured and there is probably a large hiatal hernia with questionable diaphragmatic paralysis. He is a chronic smoker. CT chest showed large hiatal hernia with mass effect, 8mm right lateral basal pulmonary nodule possibly inflammatory/infectious in etiology, recommendation to follow up in 3 months him a clinically the patient is improving as the patient's is being treated for COPD exacerbation and currently is on room air oxygen. Chronic and ongoing tobacco dependence Generalized weakness and falls Paroxysmal atrial fibrillation, anticoagulated with Eliquis Large hiatal hernia Bipolar disorder Hypothyroidism Hypertension History of anxiety/panic disorder Plan: Patient is improving Breathing easier Stop the IV Solu Medrol start the patient on prednisone burst taper as of tomorrow CT of the chest has been reviewed We'll follow-up on the pulmonary nodule in the right lung in the 3 months Increase activity as tolerated May consider for discharge home in next 24 hours if continues to improve Oxygenation is improved and the patient is currently on room air oxygen.
[2022-04-05] MEDS: ASPIRIN 81 MG PO SCH (15:26)
[2022-04-05] MEDS: MELATONIN 3 MG TABLET PO SCH (20:44)
[2022-04-05] MEDS: OLANZapine 5 MG TAB PO SCH (20:44)
[2022-04-05] MEDS: LATANOPROST 0.005% OPHTH DROPS 2.5 ML BTL LEFT EYE SCH (20:48)
[2022-04-06] MEDS: methylPREDNISolone SOD SUCCI 125 MG/2 ML VIAL IV SCH ×2 (01:05→05:19)
[2022-04-06] MEDS: LEVOTHYROXINE 125 MCG TAB PO SCH (05:19)
--- NOTE | 2022-04-06 06:30 | P.PN ---
Subjective Progress Note Date: 04/05/22 This is a 67-year-old patient who follows with Dr. Alvin Villela. Chronic stable medical conditions include hyperlipidemia, hypothyroid, bipolar, atrial fibrillation. Patient is a smoker. Patient not able to really give a good history. They would answer some questions. As per ER physician note Dr. Malone: "67-year-old male past medical history of A. fib on eliquis, COPD, hypertension, bipolar 1 presents emergency department for weakness and multiple falls. Family is at bedside and helps provide the history. States that he has not slept in the past 4 days, is having visual hallucinations and is falling. Patient reports that he is not sleeping at night because he becomes extremely short of b reath when laying down. COPD. Has been using his breathing treatments without relief. Admits to a productive cough with chills. No chest pain. No recent head trauma but did have a fall with head injury. He was seen by his primary care provider and had a CT performed which did not demonstrate any acute intracranial process. He has had recent change in his Zyprexa dosing so family unsure if his behavior is due to this medication change. No history of heart failure. Has some lower extremity edema which has been constant." Patient himself is not really sure why he is here.. Some shortness of breath. Some cough. Appetite fair. No change in bowel habit. Does feel weak. Normally able to walk. Less than sister Marifer. 04/03/2022 Patient is seen and evaluated in follow-up this morning reports to not being able to sleep at all and has been exhausted and has not slept for days prior to admission as well. Patient is currently maintained on room air and continues with some shortness of breath although not requiring oxygen. Patient is maintained on breathing inhalational treatments and will continue along with IV steroids. Pulmonary also consulted. Psychiatry also consulted for auditory hallucinations along with behavioral changes noted by family at home. Patient is also started on IV ceftriaxone and will continue for now. Recommend repeat labs. 04/04/2022 Patient is seen this morning and is being maintained on breathing inhalational treatments along with ceftriaxone and IV steroids with pulmonary following. Patient was evaluated by psychiatry as well and medications have been adjusted. Patient reports to being able to get some sleep although nursing staff reports he slept one hour last night. Patient is tolerating diet with no reports of nausea or vomiting noted. Patient is currently maintained on room air. Patient had CT chest done by pulmonary and showed 8mm right lateral basal pulmonary nodule right upper lobe along with groundglass opacities and incidental finding of large hiatal hernia with mass effect. Heart rate elevated overnight and will continue to monitor closely. Metoprolol adjusted. Patient is afebrile. Sputum showing isha and will add oral diflucan. 04/05/2022 Patient is seen today in follow up and is on room air and continued on breathing inhalational treatments along with IV steroids. Pulmonary following. Patient found to have a large hiatal hernia of which will have surgical evaluation in the outpatient setting. Pulmonary to follow outpatient as well with repeat imaging in 3 months on the nodule noted on CT. Patient reports to breathing better and less bronchospastic. Encouraged smoking cessation. Patches ordered and will continue and provide prescription for home. Patient is afebrile and denies any chest pain or palpitations. Transition to oral steroids in am. Review of systems: Constitutional: reports of less fatigue, no reports of fever, or chills Cardiovascular: No reports of chest pain or palpitations Respiratory: reports of shortness of breath and cough with improvement in his breathing. GI: No reports of nausea, vomiting, or diarrhea : No reports of dysuria or retention Neurovascular: No reports of weakness or numbness All medications have been reviewed Physical examination: GENERAL: 67 year old male, alert, awake and oriented x3. well developed, well nourished, obese EYES: Pupils equal. Conjunctiva normal. HEENT: External appearance of nose and ears normal, oral cavity grossly normal. NECK: JVD not raised; masses not palpable. HEART: S1, S2 muffled; no edema. LUNGS: Respiratory rate improved; decreased breath sounds with some expiratory wheezing noted at the bases ABDOMEN: Soft, obese, non-tender, normal bowel sounds noted, no masses palpable. PSYCH: cooperative. less anxious today MUSCULOSKELETAL:No Clubbing/cyanosis;muscles-grossly intact. Evidence of OA NEUROLOGICAL: Cranial nerves grossly intact; no facial asymmetry, power and sensation grossly intact. Assessment: -Acute hypoxic respiratory failure secondary to COPD exacerbation -Paroxysmal atrial fibrillation flutter, currently sinus rhythm -Acute COPD exacerbation -continued ongoing nicotine dependence -Chronic congestive heart failure with diastolic dysfunction EF 55-60% -Hypothyroidism -Essential hypertension -Bipolar disorder -GI prophylaxis -DVT prophylaxis: on eliquis -Full code Plan: Recommend to continue with DuoNeb treatments along with IV steroids, pulmonary following and had ct chest which will require 2-3 month follow up on 8mm right lateral basal pulmonary nodule right upper lobe noted. Psychiatry following and made some medication adjustments. Encouraged increase activity as tolerated Will transition to oral steroids in am Possible discharge in 24 hours The impression and plan of care has been dictated by Jennifer Agarwal, Nurse Practitioner as directed. Dr. Pete MD I have performed a history and examination and MDM of this patient, discussed the same with the dictator, and agree with the dictator's assessment and plan as written ,documented as a scribe. Based on total visit time, I have performed more than 50% of the visit. Objective - Vital Signs Vital signs: Vital Signs Temp 98.4 F 04/05/22 07:37 Pulse 74 04/05/22 08:03 Resp 17 04/05/22 07:37 BP 145/93 04/05/22 07:37 Pulse Ox 92 L 04/05/22 07:52 FiO2 Intake & Output 04/04/22 04/05/22 04/05/22 18:59 06:59 18:59 Intake Total 1080 1080 Balance 1080 1080 Intake: Oral 1080 1080 Other: Voiding Method Urinal # Voids 3 3 - Labs CBC & Chem 7: 04/05/22 05:50 04/05/22 05:50 Labs: Abnormal Lab Results - Last 24 Hours (Table) 04/05/22 04/05/22 Range/Units 05:50 05:50 WBC 14.6 H (3.8-10.6) k/uL Hct 55.9 H (39.0-53.0) % MCHC 30.3 L (31.0-37.0) g/dL Plt Count 138 L (150-450) k/uL Neutrophils # 13.0 H (1.3-7.7) k/uL Chloride 109 H (98-107) mmol/L BUN 31 H (9-20) mg/dL Glucose 136 H (74-99) mg/dL Microbiology - Last 24 Hours (Table) 04/01/22 16:30 Blood Culture - Preliminary Blood No Growth after 72 hours 04/01/22 16:15 Blood Culture - Preliminary Blood No Growth after 72 hours 04/02/22 15:57 Gram Stain - Final Sputum Sputum Culture - Final Isha albicans Yeast species
[2022-04-06 07:53] VITALS: TEMP 97.8
[2022-04-06] MEDS: IPRATROPIUM-ALBUTEROL 3 ML NEB INHALATION SCH ×3 (08:38→15:57)
[2022-04-06] MEDS: SYMBICORT 160-4.5 MCG INHALER INHALATION SCH (08:38)
[2022-04-06] MEDS: NICOTINE 21MG/24HR PATCH TRANSDERM SCH (08:47)
[2022-04-06] MEDS: GABAPENTIN 100 MG CAP PO SCH ×2 (08:48→16:16)
[2022-04-06] MEDS: APIXABAN 5 MG TAB PO SCH (08:49)
[2022-04-06] MEDS: PARoxetine 20 MG TAB PO SCH (08:49)
[2022-04-06] MEDS: METOPROLOL TARTRATE 25 MG TAB PO SCH (08:49)
[2022-04-06] MEDS: LORATADINE 10 MG TAB PO SCH (08:49)
[2022-04-06] MEDS: FLUCONAZOLE 100 MG TAB PO SCH (08:49)
[2022-04-06] MEDS ORDERED: predniSONE 20 MG TAB PO SCH (10:00)
--- NOTE | 2022-04-06 10:44 | P.PN ---
Subjective Progress Note Date: 04/06/22 Principal diagnosis: Shortness of breath This is a pleasant 67-year-old male patient with a known history of bipolar disorder, hypertension, gastroesophageal reflux disease, COPD with chronic and ongoing tobacco dependence, atrial fibrillation anticoagulated with Eliquis. He was brought into the emergency room yesterday with referral having not slept in 4 nights and was having visual hallucinations and was found. He was having shortness of breath and trouble laying flat in bed. He had been using utilizing breathing treatments without much improvement. Chest x-ray reveals cardiomegaly and mild pulmonary vascular congestion. He has a small left pleural effusion and a left midlung infiltrate. He also has a large hiatal hernia. White count 10.8. Hemoglobin 17.5. Platelet count 147. INR 1.2. Sodium 142. Potassium 4.3. Bicarb 27. BUN 19. Creatinine 1.2. Glucose 127. Troponin negative 1. BNP 96. Pro-calcitonin 0.02. Woodard virus by PCR not detected. He's been initiated on ceftriaxone, DuoNeb inhalations. Anticoagulated with Eliquis. He is seen today in consultation on the regular medical floor. He is currently sitting up in bed. Awake and alert in no acute distress. Maintaining O2 saturations in the 90s on 3 L/m per cannula. He has a dry nonproductive cough. He's been afebrile. Hemodynamically stable. 04/03/2022, the patient is being seen for a follow-up. The patient was Hospital as for worsening shortness of breath and a left midlung pneumonia. 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 Note that this diaphragmatic elevation was chronic. An underlying hiatal hernia cannot be completely excluded. The patient is currently on O2 on room air with a pulse ox of 94%. White cell count is at 8.8 with hemoglobin of 16.9. Electrolytes are all within normal limits. Pro-calcitonin level was at 0.02. Coronary 19 testing was negative. The patient is currently on DuoNeb updrafts, Symbicort maintenance, IV Rocephin, IV Solu-Medrol and he is also on a nicotine patch. On 04/04/2022 patient seen in follow-up on medical surgical floor, he is breathing much easier, less dyspneic, last bronchospastic. Vital signs are stable, room air pulse ox 96%, afebrile., His had no acute events overnight, no complaints of chest discomfort, Q continues on nebulized bronchodilators, is on IV Solu-Medrol, Diflucan, Rocephin. CT of the chest has been completed and reviewed showing large hiatal hernia with mass effect continuing peritoneal fact, the entire stomach, portion of the transverse colon and gastric vessels. Lung windows showed COPD involving the upper lobes, bilateral basal subsegmental pulmonary atelectasis more on the left side and smaller atelectasis along the left oblique fissure within the lingula. There was 8 mm right lateral basal pulmonary nodules and groundglass opacity at the inferior aspect of the right upper lobe, possibly inflammatory infectious in etiology with the recommendation of 2-3 months follow-up. Echocardiogram showed EF of 55-60%, mild pulmonary hypertension. Today's labs have been reviewed, white blood cell count 15.8, hemoglobin is 17.5, sodium is 144, potassium 5.1, chloride is 107, CO2 31, B1 is 27 creatinine is 1.2. level came back negative at 0.02, covid-19 pcr was negative. procal was within normal limits at 96. On 04/06/2022 patient seen in follow-up on medical surgical floor, he sitting up in the recliner, he is on room air, breathing comfortably, pulse ox is 92%, he states his breathing has significantly improved, only a few scattered rhonchi, no wheezing on today's exam, no fever or chills, vital signs have been stable, his been tolerating ambulation in the room. He remains on a combination of nebulized bronchodilators, Symbicort, he is on oral prednisone 40 mg. No acute events overnight. Yesterday's labs have been reviewed, white blood cell count is 14.6, hemoglobin is 16.9, sodium is 140, potassium is 4.8, chloride is 109, BUN 31, creatinine is 1.18. ProCalcitonin level was negative at 0.02, patient tested negative for COVID 19. States is still hard for him to sleep in bed related to orthopnea, and still has exertional dyspnea but overall has signi ficantly improved. He intends on quitting smoking altogether. He has a nebulizer machine at home but does need medication for it. Objective - Vital Signs Vital signs: Vital Signs Temp 97.8 F 04/06/22 07:52 Pulse 65 04/06/22 08:50 Resp 21 04/06/22 07:52 BP 134/94 04/06/22 07:52 Pulse Ox 92 L 04/06/22 08:38 FiO2 Intake & Output 04/05/22 04/06/22 04/06/22 18:59 06:59 18:59 Other: Voiding Method Toilet Toilet # Voids 6 # Bowel Movements 1 - Exam GENERAL EXAM: Alert, very pleasant, 67-year-old white male, sitting up in his bed, in no acute distress, with pulse ox of 96% comfortable in no apparent distress. HEAD: Normocephalic/atraumatic. EYES: Normal reaction of pupils, equal size. Conjunctiva pink, sclera white. NOSE: Clear with pink turbinates. THROAT: No erythema or exudates. NECK: No masses, no JVD, no thyroid enlargement, no adenopathy. CHEST: No chest wall deformity. Symmetrical expansion. LUNGS: Equal air entry with diffuse wheezes CVS: Regular rate and rhythm, normal S1 and S2, no gallops, no murmurs, no rubs ABDOMEN: Soft, nontender. No hepatosplenomegaly, normal bowel sounds, no guarding or rigidity. EXTREMITIES: No clubbing, no edema, no cyanosis, 2+ pulses and upper and lower extremities. MUSCULOSKELETAL: Muscle strength and tone normal. SPINE: No scoliosis or deformity SKIN: No rashes CENTRAL NERVOUS SYSTEM: Alert and oriented -3. No focal deficits, tone is normal in all 4 extremities. PSYCHIATRIC: Alert and oriented -3. Appropriate affect. Intact judgment and insight. - Labs CBC & Chem 7: 04/05/22 05:50 04/05/22 05:50 Labs: Microbiology - Last 24 Hours (Table) 04/01/22 16:30 Blood Culture - Preliminary Blood No Growth after 96 hours 04/01/22 16:15 Blood Culture - Preliminary Blood No Growth after 96 hours Assessment and Plan Plan: Assessment: Acute hypoxic respiratory failure secondary to an exacerbation of chronic obstructive pulmonary disease, possible early infiltrate in the left midlung, atelectasis left lung base, elevated left hemidiaphragm. Procalcitonin 0.02. Continue ceftriaxone for now. Convinced that the patient may have a left mid lung pneumonia. Left hemidiaphragm is obscured and there is probably a large hiatal hernia with questionable diaphragmatic paralysis. He is a chronic smoker. CT chest showed large hiatal hernia with mass effect, 8mm right lateral basal pulmonary nodule possibly inflammatory/infectious in etiology, recommendation to follow up in 3 months Chronic and ongoing tobacco dependence Generalized weakness and falls Paroxysmal atrial fibrillation, anticoagulated with Eliquis Large hiatal hernia Bipolar disorder Hypothyroidism Hypertension History of anxiety/panic disorder Plan: Patient has been improving No acute events overnight We will obtain home oxygen assessment with ambulation Patient has been transitioned to oral prednisone continues on inhaled and nebulized bronchodilators CT of the chest has been reviewed She will need outpatient follow-up with general surgery in regards to possible surgery for repair of a large hiatal hernia We'll follow-up on the pulmonary nodule in the right lung in the 3 months His outpatient follow-up in the office with Dr. Paulino in 7-10 days Stable for discharge home today from pulmonary perspective on prednisone taper, DuoNeb nebulized treatments 4 times a day and is needed, Symbicort, home oxygen on an as-needed basis if he qualifies We'll need outpatient PFT, and follow-up chest x-ray in the office Smoking cessation was strongly advised and the patient states he is ready to do so I have personally seen and examined the patient, performed the documentation and the assessment and plan as written. Number of minutes spent on the visit: [10] I have personally seen and examined the patient and reviewed the documentation. I performed a joint evaluation with the nurse practitioner in this evaluation was done more than 20 minutes. I fully agree with the documentation above and the plan of care. The patient is doing well. No significant complaints. The patient is less short of breath as he recovers from his COPD exacerbation. Discharge instructions were stated above. We will evaluate need for home O2 at a time of discharge. Outpatient PFT will be needed. Management of a large hiatal hernia on outpatient basis. Time with Patient: Less than 30
[2022-04-06] MEDS ORDERED: IPRATROPIUM-ALBUTEROL 3 ML NEB ONE (12:00)
[2022-04-06] MEDS ORDERED: predniSONE 20 MG TAB ONE (12:00)
[2022-04-06] MEDS ORDERED: ASPIRIN 81 MG ONE (12:00)
[2022-04-06 14:50] VITALS: BP 145/91
[2022-04-06 15:52] VITALS: RESP 18
[2022-04-06 16:02] VITALS: PULSE 78
[2022-04-06] MEDS: ASPIRIN 81 MG PO SCH (16:16)
--- NOTE | 2022-04-10 09:32 | P.DS ---
Providers Date of admission: 04/01/22 17:12 Expected date of discharge: 04/06/22 Attending physician: Олег Sanon Consults: 04/01/22 17:13 Consult Physician Urgent Consulting Provider: William Mendoza Consult Reason/Comments: hallucinations, insomnia, hx bipolar Do you want consulting provider notified?: Yes 04/01/22 17:25 Consult Physician Urgent Consulting Provider: Rainer Bazzi Consult Reason/Comments: hypoxic resp failure, CAP, COPD Do you want consulting provider notified?: Yes Primary care physician: Josue Villela Hospital Course: Final Diagnosis -Acute hypoxic respiratory failure secondary to COPD exacerbation -Paroxysmal atrial fibrillation flutter, currently sinus rhythm -Acute COPD exacerbation -continued ongoing nicotine dependence -Chronic congestive heart failure with diastolic dysfunction EF 55-60% -Hypothyroidism -Essential hypertension -Bipolar disorder -GI prophylaxis -DVT prophylaxis: on eliquis -Full code Discharge disposition Patient is being discharged in a stable condition with guarded prognosis to home. Patient will follow-up with Dr. Josue Villela in the outpatient setting upon discharge. Patient is to follow-up with pulmonary as scheduled and will continue on prednisone taper and breathing inhalational treatments. Total time taken is greater than 35 minutes. Hospital course This is a 67-year-old male admitted with COPD acute exacerbation along with fatigue and exhaustion and hallucinations. Patient has been seen and evaluated by psychiatry with medication adjustments and also pulmonary and was maintained on IV steroids and breathing inhalational treatments. Patient with Alana albicans in the sputum and will continue a five-day course of Diflucan on discharge. Patient is feeling much better and adamant about going home today. Smoking cessation again discussed at length and patient does have nicotine patches. Currently no reports of chest pain, no worsening shortness of breath, or palpitations. Patient is afebrile. No reports of nausea or vomiting and patient is tolerating diet. Patient will be discharged home today. Guarded prognosis. On exam vital signs are stable. Cardio S1, S2 are muffled. Respiratory system shows diminished breath sounds at the bases with some mild expiratory wheezing and scattered rhonchi noted. Abdomen is soft and nontender. Nervous system shows no focal deficit. Please refer to medication reconciliation sheet for a list of medications. The impression and plan of care has been dictated by Jennifer Agarwal, Nurse Practitioner as directed. Dr. Pete MD I have performed a history and examination and MDM of this patient, discussed the same with the dictator, and agree with the dictator's assessment and plan as written ,documented as a scribe. Based on total visit time, I have performed more than 50% of the visit. Patient Condition at Discharge: Stable Plan - Discharge Summary Discharge Rx Participant: Yes New Discharge Prescriptions: New Budesonide-Formot 160-4.5 Mcg [Symbicort 160-4.5 Mcg Inhaler] 2 puff INHALATION BID 30 Days #1 each Fluconazole [Diflucan] 100 mg PO DAILY 5 Days #5 tab Ipratropium-Albuterol Nebulize [Duoneb 0.5 mg-3 mg/3 ml Soln] 3 ml INHALATION RT-Q2H PRN each PRN Reason: Shortness Of Breath Or Wheezing Nicotine 21Mg/24Hr Patch [Habitrol] 1 patch TRANSDERM DAILY patch Metoprolol Tartrate [Lopressor] 25 mg PO BID 30 Days #60 tab predniSONE 10 mg PO DIRECTED #30 tab Acetaminophen Tab [Tylenol] 650 mg PO Q6HR PRN tab PRN Reason: Mild Pain Or Fever > 100.5 Albuterol Nebulized [Ventolin Nebulized] 3 ml INHALATION Q6H 30 Days #6 pack Ipratropium-Albuterol Nebulize [Duoneb 0.5 mg-3 mg/3 ml Soln] 3 ml INHALATION RT-QID 30 Days #90 each Continue PARoxetine HCL [Paxil] 20 mg PO DAILY Levothyroxine Sodium 125 mcg PO DAILY Latanoprost/Pf [Latanoprost 0.005% Eye Drop] 1 drop LEFT EYE HS OLANZapine [ZyPREXA] 15 mg PO HS Loratadine [Claritin] 10 mg PO DAILY Gabapentin [Neurontin] 100 mg PO TID Aspirin EC [Ecotrin Low Dose] 81 mg PO DAILY@1400 Apixaban [Eliquis] 5 mg PO BID Albuterol Sulfate [Albuterol Sulfate Hfa] 1 puff PO RT-Q4H PRN PRN Reason: Shortness Of Breath Discontinued Lavelle Carbonate 600 mg PO HS Tiotropium 18 Mcg/Puff [Spiriva] 1 puff INHALATION RT-DAILY Minocycline [Minocin] 50 mg PO BID Metoprolol Tartrate [Lopressor] 50 mg PO TID-W/MEALS Furosemide [Lasix] 80 mg PO DAILY Discharge Medication List Latanoprost/Pf [Latanoprost 0.005% Eye Drop] 1 drop LEFT EYE HS 08/18/20 [History] Levothyroxine Sodium 125 mcg PO DAILY 08/18/20 [History] PARoxetine HCL [Paxil] 20 mg PO DAILY 08/18/20 [History] Albuterol Sulfate [Albuterol Sulfate Hfa] 1 puff PO RT-Q4H PRN 04/01/22 [History] Apixaban [Eliquis] 5 mg PO BID 04/01/22 [History] Aspirin EC [Ecotrin Low Dose] 81 mg PO DAILY@1400 04/01/22 [History] Gabapentin [Neurontin] 100 mg PO TID 04/01/22 [History] Loratadine [Claritin] 10 mg PO DAILY 04/01/22 [History] OLANZapine [ZyPREXA] 15 mg PO HS 04/01/22 [History] Acetaminophen Tab [Tylenol] 650 mg PO Q6HR PRN tab 04/06/22 [Rx] Albuterol Nebulized [Ventolin Nebulized] 3 ml INHALATION Q6H 30 Days #6 pack 04/06/22 [Rx] Budesonide-Formot 160-4.5 Mcg [Symbicort 160-4.5 Mcg Inhaler] 2 puff INHALATION BID 30 Days #1 each 04/06/22 [Rx] Fluconazole [Diflucan] 100 mg PO DAILY 5 Days #5 tab 04/06/22 [Rx] Ipratropium-Albuterol Nebulize [Duoneb 0.5 mg-3 mg/3 ml Soln] 3 ml INHALATION RT-Q2H PRN each 04/06/22 [Rx] Ipratropium-Albuterol Nebulize [Duoneb 0.5 mg-3 mg/3 ml Soln] 3 ml INHALATION RT-QID 30 Days #90 each 04/06/22 [Rx] Metoprolol Tartrate [Lopressor] 25 mg PO BID 30 Days #60 tab 04/06/22 [Rx] Nicotine 21Mg/24Hr Patch [Habitrol] 1 patch TRANSDERM DAILY patch 04/06/22 [Rx] predniSONE 10 mg PO DIRECTED #30 tab 04/06/22 [Rx] Follow up Appointment(s)/Referral(s): Josue Villela MD [Primary Care Provider] - 04/11/22 4:30 pm Sayda Paulino MD [STAFF PHYSICIAN] - 04/18/22 8:30 am (with Stefanie Jorgensen ) Patient Instructions/Handouts: COPD (Chronic Obstructive Pulmonary Disease) (DC) Activity/Diet/Wound Care/Special Instructions: activity limited until follow up follow up with pcp on discharge follow up with pulmonary as scheduled continue with medications as prescribed avoid any tobacco use or exposure Discharge Disposition: HOME SELF-CARE
== END 2022-04-06 16:16 | disposition home or self-care (01) | DRG 190 ==
LOC: EC 12:39 → 4SSUR 17:12
PROVIDERS: ADMIT Hospitalist; ATTEND Hospitalist
DX: J44.1 Chronic obstructive pulmonary disease with (acute) exacerbation (principal); J96.01 Acute respiratory failure with hypoxia; J98.11 Atelectasis; F31.10 Bipolar disorder, current episode manic without psychotic features, unspecified; I48.92 Unspecified atrial flutter; I50.42 Chronic combined systolic (congestive) and diastolic (congestive) heart failure; J98.6 Disorders of diaphragm; K44.9 Diaphragmatic hernia without obstruction or gangrene; R29.6 Repeated falls; Z20.822 Contact with and (suspected) exposure to COVID-19; Z28.310 Unvaccinated for COVID-19; E03.9 Hypothyroidism, unspecified; E66.9 Obesity, unspecified; Z68.30 Body mass index [BMI] 30.0-30.9, adult; E78.5 Hyperlipidemia, unspecified; F10.21 Alcohol dependence, in remission; Z82.49 Family history of ischemic heart disease and other diseases of the circulatory system; F17.210 Nicotine dependence, cigarettes, uncomplicated; F41.0 Panic disorder [episodic paroxysmal anxiety]; H40.9 Unspecified glaucoma; G47.00 Insomnia, unspecified; I11.0 Hypertensive heart disease with heart failure; I27.20 Pulmonary hypertension, unspecified; I48.0 Paroxysmal atrial fibrillation; Z79.01 Long term (current) use of anticoagulants; Z79.51 Long term (current) use of inhaled steroids; Z79.52 Long term (current) use of systemic steroids; Z79.82 Long term (current) use of aspirin; Z79.890 Hormone replacement therapy; Z79.899 Other long term (current) drug therapy; Z91.81 History of falling; Z71.6 Tobacco abuse counseling; Z71.41 Alcohol abuse counseling and surveillance of alcoholic
CPT/HCPCS: 36415; 70450; 71045; 71046; 71260; 72125; 80048; 80053; 80178; 83880; 84145; 84484; 85025; 85610; 87040; 87070; 87205; 87635; 93005; 93306; 94640; 94760; 96374; 99285

== ENCOUNTER 2022-05-21 20:54 | Observation (INO) | payer MEDICARE, OTHER ==
[2022-05-21] MEDS ORDERED: SODIUM CHLORIDE 0.9% 1,000 ML IV STA (21:46)
--- NOTE | 2022-05-21 21:46 | ED ---
Extremity Problem HPI - General Chief complaint: Extremity Problem,Nontraumatic Stated complaint: Bilateral Feet Swelling, Pain, and discoloration Time Seen by Provider: 05/21/22 21:37 Source: patient Mode of arrival: wheelchair Limitations: no limitations - History of Present Illness Initial comments: This is a 67 male to the emergency department for evaluation patient presents today for evaluation regards to bilateral lower extremity edema cellulitis pain redness and swelling. Patient was placed on antibiotics 2 days ago with worsening of symptoms. Patient has never had such significant swelling of his legs. Recently did take a long car ride to [employer] in the swelling is been ongoing on and off since then. Patient suffers from COPD but has no other significant medical history. No fevers MD Complaint: extremity pain, extremity swelling -: days(s) Location: left, right, bilateral lower extremity History of Same: No Radiation: proximal, distal Severity scale (1-10): 7 Quality: aching Consistency: constant Improves with: nothing Worsens with: nothing Associated Symptoms: denies other symptoms - Related Data Home Medications Medication Instructions Recorded Confirmed Latanoprost/Pf [Latanoprost 0.005% 1 drop LEFT EYE HS 08/18/20 04/01/22 Eye Drop] Levothyroxine Sodium 125 mcg PO DAILY 08/18/20 04/01/22 PARoxetine HCL [Paxil] 20 mg PO DAILY 08/18/20 04/01/22 Albuterol Sulfate [Albuterol 1 puff PO RT-Q4H PRN 04/01/22 04/01/22 Sulfate Hfa] Apixaban [Eliquis] 5 mg PO BID 04/01/22 04/01/22 Aspirin EC [Ecotrin Low Dose] 81 mg PO DAILY@1400 04/01/22 04/01/22 Gabapentin [Neurontin] 100 mg PO TID 04/01/22 04/01/22 Loratadine [Claritin] 10 mg PO DAILY 04/01/22 04/01/22 OLANZapine [ZyPREXA] 15 mg PO HS 04/01/22 04/01/22 Previous Rx's Medication Instructions Recorded Acetaminophen Tab [Tylenol] 650 mg PO Q6HR PRN tab 04/06/22 Albuterol Nebulized [Ventolin 3 ml INHALATION Q6H 30 Days #6 pack 04/06/22 Nebulized (Accuneb)] Budesonide-Formot 160-4.5 Mcg 2 puff INHALATION BID 30 Days #1 04/06/22 [Symbicort 160-4.5 Mcg Inhaler] each Fluconazole [Diflucan] 100 mg PO DAILY 5 Days #5 tab 04/06/22 Ipratropium-Albuterol Nebulize 3 ml INHALATION RT-Q2H PRN each 04/06/22 [Duoneb 0.5 mg-3 mg/3 ml Soln] Ipratropium-Albuterol Nebulize 3 ml INHALATION RT-QID 30 Days #90 04/06/22 [Duoneb 0.5 mg-3 mg/3 ml Soln] each Metoprolol Tartrate [Lopressor] 25 mg PO BID 30 Days #60 tab 04/06/22 Nicotine 21Mg/24Hr Patch [Habitrol] 1 patch TRANSDERM DAILY patch 04/06/22 predniSONE 10 mg PO DIRECTED #30 tab 04/06/22 Allergies Allergy/AdvReac Type Severity Reaction Status Date / Time No Known Allergies Allergy Verified 05/21/22 21:00 Review of Systems ROS Statement: Those systems with pertinent positive or pertinent negative responses have been documented in the HPI. ROS Other: All systems not noted in ROS Statement are negative. Past Medical History Past Medical History: Atrial Fibrillation, COPD, Eye Disorder, Hyperlipidemia, Hypertension, Thyroid Disorder Additional Past Medical History / Comment(s): Sober for 10 years, hiatal hernia, glaucoma left eye, possible stroke behind left eye per opthamologist History of Any Multi-Drug Resistant Organisms: None Reported Additional Past Surgical History / Comment(s): HYDROCELE surg. x2, hemorrhoidectomy Past Anesthesia/Blood Transfusion Reactions: No Reported Reaction Past Psychological History: Anxiety, Bipolar, Panic Disorder Smoking Status: Current every day smoker Past Alcohol Use History: None Reported Past Drug Use History: None Reported - Past Family History Mother Family Medical History: Diabetes Mellitus Father Family Medical History: Coronary Artery Disease (CAD) General Exam Limitations: no limitations General appearance: alert, in no apparent distress Head exam: Present: atraumatic, normocephalic, normal inspection Eye exam: Present: normal appearance, PERRL, EOMI. Absent: scleral icterus, conjunctival injection, periorbital swelling ENT exam: Present: normal exam, mucous membranes moist Neck exam: Present: normal inspection. Absent: tenderness, meningismus, lymph adenopathy Respiratory exam: Present: normal lung sounds bilaterally. Absent: respiratory distress, wheezes, rales, rhonchi, stridor Cardiovascular Exam: Present: regular rate, normal rhythm, normal heart sounds. Absent: systolic murmur, diastolic murmur, rubs, gallop, clicks GI/Abdominal exam: Present: soft, normal bowel sounds. Absent: distended, tenderness, guarding, rebound, rigid Extremities exam: Present: tenderness, other (Bilateral traumatic edema, swelling, erythema). Absent: pedal edema, joint swelling, calf tenderness Back exam: Present: normal inspection Neurological exam: Present: alert, oriented X3, CN II-XII intact Psychiatric exam: Present: normal affect, normal mood Skin exam: Present: warm, dry, intact, normal color. Absent: rash Course Vital Signs 05/21/22 05/21/22 21:00 22:05 Temperature 98.0 F Pulse Rate 100 86 Respiratory 20 Rate Blood Pressure 106/68 112/78 O2 Sat by Pulse 92 L 93 L Oximetry - Reevaluation(s) Reevaluation #1: 05/21/22 22:47 Medical records reviewed Reevaluation #2: 05/21/22 22:47 Patient has no change in symptoms here in the ER Reevaluation #3: 05/21/22 22:47 Patient informed results questions answered - Consultations Consultation #1: Spoke with sound who agrees to admit the patient Medical Decision Making - Medical Decision Making 67 male to the emergency department for evaluation patient presents today for evaluation regards to bilateral lower extremity edema cellulitis pain redness and swelling. Patient replacement antibiotics for bilateral lower extremity cellulitis admitted for critical access hospital outpatient treatment - Lab Data Result diagrams: 05/21/22 22:11 Lab Results 05/21/22 05/21/22 05/21/22 Range/Units 22:11 22:11 22:11 WBC 11.4 H (3.8-10.6) k/uL RBC 5.62 (4.30-5.90) m/uL Hgb 16.8 (13.0-17.5) gm/dL Hct 53.3 H (39.0-53.0) % MCV 94.9 (80.0-100.0) fL MCH 29.8 (25.0-35.0) pg MCHC 31.4 (31.0-37.0) g/dL RDW 13.9 (11.5-15.5) % Plt Count 131 L (150-450) k/uL MPV 11.4 Neutrophils % 74 % Lymphocytes % 15 % Monocytes % 8 % Eosinophils % 1 % Basophils % 1 % Neutrophils # 8.5 H (1.3-7.7) k/uL Lymphocytes # 1.7 (1.0-4.8) k/uL Monocytes # 0.9 (0-1.0) k/uL Eosinophils # 0.1 (0-0.7) k/uL Basophils # 0.1 (0-0.2) k/uL PT 12.5 H (9.0-12.0) sec INR 1.2 H (<1.2) APTT 24.2 (22.0-30.0) sec Plasma Lactic Acid Rios 0.9 (0.7-2.0) mmol/L - EKG Data -: EKG Interpreted by Me (EKG is A. fib 76 QRS 104 QTC 389) Disposition Clinical Impression: Bilateral lower leg cellulitis, Bilateral leg edema, COPD (chronic obstructive pulmonary disease) Disposition: ADMITTED IP TO THIS HOSP Condition: Good Is patient prescribed a controlled substance at d/c from ED?: No Referrals: Josue Villela MD [Primary Care Provider] - 1-2 days Time of Disposition: 22:50
[2022-05-21 22:25] LABS: Basophils # (A) 0.1 k/uL (0-0.2); Basophils % (A) 1 %; Eosinophils # (A) 0.1 k/uL (0-0.7); Eosinophils % (A) 1 %; HCT 53.3 % (39.0-53.0); HGB 16.8 gm/dL (13.0-17.5); Lymphocytes # (A) 1.7 k/uL (1.0-4.8); Lymphocytes % (A) 15 %; MCH 29.8 pg (25.0-35.0); MCHC 31.4 g/dL (31.0-37.0); MCV 94.9 fL (80.0-100.0); Mean Platelet Volume 11.4; Monocytes # (A) 0.9 k/uL (0-1.0); Monocytes % (A) 8 %; Neutrophils # (A) 8.5 k/uL (1.3-7.7); Neutrophils % (A) 74 %; Platelet Count 131 k/uL (150-450); RBC 5.62 m/uL (4.30-5.90); RDW 13.9 % (11.5-15.5); WBC 11.4 k/uL (3.8-10.6)
[2022-05-21 22:37] LABS: INR 1.2 (<1.2); Partial Thromboplastin Time 24.2 sec (22.0-30.0); Prothrombin Time 12.5 sec (9.0-12.0)
[2022-05-21] MEDS ORDERED: VANCOMYCIN IV PER PHARMACY 1 EACH MISC MISCELLANE PRN (22:43)
[2022-05-21] MEDS ORDERED: IPRATROPIUM-ALBUTEROL 3 ML NEB INHALATION STA (22:44)
[2022-05-21] MEDS ORDERED: IPRATROPIUM-ALBUTEROL 3 ML NEB INHALATION PRN (22:44)
[2022-05-21] MEDS ORDERED: MORPHINE SULFATE 4 MG/ML SYRINGE IV PRN (22:48)
[2022-05-21] MEDS ORDERED: NALOXONE 0.4 MG/ML 1 ML VIAL IV PRN (22:48)
[2022-05-21] MEDS ORDERED: ONDANSETRON 4 MG/2 ML VIAL IVP PRN (22:48)
[2022-05-21] MEDS ORDERED: SODIUM CHLORIDE 0.9% 1,000 ML IV SCH (23:00)
[2022-05-21 23:21] LABS: Appearance,Urine Clear (Clear); Bilirubin,Urine Negative (Negative); Blood,Urine Negative (Negative); Color,Urine Yellow; Glucose,Urine (UA) Negative (Negative); Ketones,Urine Negative (Negative); Leukocyte Esterase,Urine Negative (Negative); Nitrite,Urine Negative (Negative); PH, Urine 6.5 (5.0-8.0); Protein,Urine Negative (Negative); Specific Gravity,Urine 1.008 (1.001-1.035); Urobilinogen,Urine <2.0 mg/dL (<2.0)
[2022-05-22] LABS: Albumin 3.5 g/dL (3.5-5.0); Magnesium 2.2 mg/dL (1.6-2.3); Phosphorus 4.2 mg/dL (2.5-4.5); Potassium 3.6 mmol/L (3.5-5.1); Total Bilirubin 0.5 mg/dL (0.2-1.3); Total Protein 6.1 g/dL (6.3-8.2)
[2022-05-22] MEDS ORDERED: VANCOMYCIN 1,750 MG in SODIUM CHLORIDE 0.9% 500 ML 500 ML IVPB ONE ×2
[2022-05-22 04:19] VITALS: BP 100/70; PULSE 102; RESP 22; TEMP 98.1
--- NOTE | 2022-05-22 05:36 | P.HPIM ---
History of Present Illness H&P Date: 05/22/22 Chief Complaint: Bilateral leg edema and erythema 67-year-old male with COPD, A. fib Patient comes in due to increased pain, erythema and swelling of bilateral legs this been going on for a few days he saw his PCP. He claims that has started him on antibiotics he's been taking them for 2 days now without much improvement for which she decided to come the hospital for evaluation. Patient normally sleeps on the lazy boy with legs elevated. He denies any fevers chills denies any history of blood clots he denies any recent travel he was in [place] 3 months ago denies any recent hospital stay. Denies any injuries to the legs. Patient denies being on home oxygen, denies any difficulty breathing or wheezing. Denies any coughing or shortness of breath. Workup in the ED shows slightly elevated white count, acute kidney injury Review of Systems Pertinent positives as noted in HPI. All other systems were reviewed and are negative Past Medical History Past Medical History: Atrial Fibrillation, COPD, Eye Disorder, Hyperlipidemia, Hypertension, Thyroid Disorder Additional Past Medical History / Comment(s): Sober for 10 years, hiatal hernia, glaucoma left eye, possible stroke behind left eye per opthamologist History of Any Multi-Drug Resistant Organisms: None Reported Additional Past Surgical History / Comment(s): HYDROCELE surg. 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 since use - Past Family History Mother Family Medical History: Diabetes Mellitus Father Family Medical History: Coronary Artery Disease (CAD) Medications and Allergies Home Medications Medication Instructions Recorded Confirmed Type Latanoprost/Pf [Latanoprost 0.005% 1 drop LEFT EYE HS 08/18/20 04/01/22 History Eye Drop] Levothyroxine Sodium 125 mcg PO DAILY 08/18/20 04/01/22 History PARoxetine HCL [Paxil] 20 mg PO DAILY 08/18/20 04/01/22 History Albuterol Sulfate [Albuterol 1 puff PO RT-Q4H PRN 04/01/22 04/01/22 History Sulfate Hfa] Apixaban [Eliquis] 5 mg PO BID 04/01/22 04/01/22 History Aspirin EC [Ecotrin Low Dose] 81 mg PO DAILY@1400 04/01/22 04/01/22 History Gabapentin [Neurontin] 100 mg PO TID 04/01/22 04/01/22 History Loratadine [Claritin] 10 mg PO DAILY 04/01/22 04/01/22 History OLANZapine [ZyPREXA] 15 mg PO HS 04/01/22 04/01/22 History Acetaminophen Tab [Tylenol] 650 mg PO Q6HR PRN tab 04/06/22 Rx Albuterol Nebulized [Ventolin 3 ml INHALATION Q6H 30 Days #6 pack 04/06/22 Rx Nebulized (Accuneb)] Budesonide-Formot 160-4.5 Mcg 2 puff INHALATION BID 30 Days #1 04/06/22 Rx [Symbicort 160-4.5 Mcg Inhaler] each Fluconazole [Diflucan] 100 mg PO DAILY 5 Days #5 tab 04/06/22 Rx Ipratropium-Albuterol Nebulize 3 ml INHALATION RT-Q2H PRN each 04/06/22 Rx [Duoneb 0.5 mg-3 mg/3 ml Soln] Ipratropium-Albuterol Nebulize 3 ml INHALATION RT-QID 30 Days #90 04/06/22 Rx [Duoneb 0.5 mg-3 mg/3 ml Soln] each Metoprolol Tartrate [Lopressor] 25 mg PO BID 30 Days #60 tab 04/06/22 Rx Nicotine 21Mg/24Hr Patch [Habitrol] 1 patch TRANSDERM DAILY patch 04/06/22 Rx predniSONE 10 mg PO DIRECTED #30 tab 04/06/22 Rx Allergies Allergy/AdvReac Type Severity Reaction Status Date / Time No Known Allergies Allergy Verified 05/21/22 21:00 Physical Exam Vitals: Vital Signs Temp Pulse Pulse Resp BP BP Pulse Ox 05/22/22 00:40 98.1 F 102 H 22 100/70 91 L 05/21/22 23:42 95 05/21/22 23:40 103 H 97/68 95 05/21/22 23:30 94 05/21/22 22:05 86 112/78 93 L 05/21/22 21:00 98.0 F 100 20 106/68 92 L Intake and Output 05/21/22 05/21/22 05/22/22 14:59 22:59 06:59 Other: # Voids 1 Weight 108.862 kg 108.862 kg Constitutional: No acute distress, conversant, pleasant Eyes: Anicteric sclerae, moist conjunctiva, Pupils equal round reactive to light ENMT: NC/AT Oropharynx clear, no erythema, or exudates Neck: Supple, FROM, no masses, or JVD No carotid bruits No thyromegaly Lungs: Clear to auscultation Clear to percussion Normal respiratory effort, no accessory muscle use Cardiovascular: Heart irregular No murmurs, gallops, or rubs +2 peripheral edema Abdominal: Soft Nontender, no guarding, rebound or rigidity Abdomen moving with respiration Normoactive bowel sounds No hepatomegaly, No splenomegaly No palpable mass No abdominal wall hernia noted Skin: Erythema, warmth to the touch and tender and palpation of bilateral mid legs and below along with chronic skin changes in the lower third of bilateral legs Extremities: No digital cyanosis No clubbing Pedal pulses intact and symmetrical Radial pulses intact and symmetrical No calf tenderness Psychiatric: Alert and oriented to person, place and time Appropriate affect fair judgement Neuro Muscles Strength 5/5 in all 4 extremities Sensation to light touch grossly present throughout Cranial nerves II-XII grossly intact No focal sensory deficits Lymphatics: no palpable cervical or supraclavicular , or inguinal lymph nodes Results CBC & Chem 7: 05/21/22 22:11 05/21/22 22:11 Labs: Abnormal Lab Results - Last 24 Hours (Table) 05/21/22 05/21/22 05/21/22 Range/Units 22:11 22:11 22:11 WBC 11.4 H (3.8-10.6) k/uL Hct 53.3 H (39.0-53.0) % Plt Count 131 L (150-450) k/uL Neutrophils # 8.5 H (1.3-7.7) k/uL PT 12.5 H (9.0-12.0) sec INR 1.2 H (<1.2) Carbon Dioxide 34 H (22-30) mmol/L BUN 27 H (9-20) mg/dL Creatinine 1.40 H (0.66-1.25) mg/dL Total Protein 6.1 L (6.3-8.2) g/dL Assessment and Plan Assessment: Cellulitis of bilateral legs failed outpatient treatment Follow-up cultures She initiated on vancomycin Pain control Monitor vital signs Peripheral neuropathy continue with Neurontin Acute kidney injury Avoid nephrotoxic meds IV fluid hydration gentle normal saline COPD compensated DuoNeb's parent Continue inhalers Supplementaloxygenasneeded Hypothyroid Resumelevothyroxine DVT prophylaxis on Equis for A. fib Full code
[2022-05-22 06:15] LABS: Basophils # (A) 0.1 k/uL (0-0.2); Basophils % (A) 1 %; Eosinophils # (A) 0.1 k/uL (0-0.7); Eosinophils % (A) 1 %; HCT 51.4 % (39.0-53.0); HGB 16.8 gm/dL (13.0-17.5); Hypochromasia Slight; Lymphocytes # (A) 1.6 k/uL (1.0-4.8); Lymphocytes % (A) 15 %; MCH 31.3 pg (25.0-35.0); MCHC 32.7 g/dL (31.0-37.0); MCV 95.8 fL (80.0-100.0); Mean Platelet Volume 12.4; Monocytes # (A) 1.1 k/uL (0-1.0); Monocytes % (A) 10 %; Neutrophils # (A) 7.6 k/uL (1.3-7.7); Neutrophils % (A) 73 %; Platelet Count 104 k/uL (150-450); RBC 5.37 m/uL (4.30-5.90); RDW 13.6 % (11.5-15.5); WBC 10.5 k/uL (3.8-10.6)
[2022-05-22 06:35] LABS: Calcium 8.4 mg/dL (8.4-10.2); Potassium 3.7 mmol/L (3.5-5.1)
[2022-05-22] MEDS ORDERED: LEVOTHYROXINE 125 MCG TAB PO SCH (07:00)
--- NOTE | 2022-05-22 08:02 | P.DS ---
Providers Date of admission: 05/21/22 22:48 Expected date of discharge: 05/22/22 Attending physician: Cha Aguilar MD Primary care physician: Josue Villela Hospital Course: THIS IS NOT A DISCHARGE SUMMARY, ONLY A SUMMARY OF CARE PATIENT LEFT AGAINST MEDICAL ADVICE Bilateral lower extremity cellulitis failed outpatient treatment Acute kidney injury COPD compensated Hypothyroidism Hospital Course: Patient was admitted this morning at 4:24 AM under our services for treatment of bilateral lower extremity cellulitis after failing outpatient treatment program and an acute kidney injury. Per documentation in chart patient reportedly left AGAINST MEDICAL ADVICE at 7:22 AM reportedly stating that he really wanted a cigarette and has too much on his plate right now to undergo hospitalization. Pt left AGAINST MEDICAL ADVICE at 7:22 AM on 05/22/22 Patient Condition at Discharge: Undetermined Plan - Discharge Summary Discharge Rx Participant: No New Discharge Prescriptions: No Action PARoxetine HCL [Paxil] 20 mg PO DAILY Levothyroxine Sodium 125 mcg PO DAILY Latanoprost/Pf [Latanoprost 0.005% Eye Drop] 1 drop LEFT EYE HS OLANZapine [ZyPREXA] 15 mg PO HS Loratadine [Claritin] 10 mg PO DAILY Gabapentin [Neurontin] 100 mg PO TID Aspirin EC [Ecotrin Low Dose] 81 mg PO DAILY@1400 Apixaban [Eliquis] 5 mg PO BID Budesonide-Formot 160-4.5 Mcg [Symbicort 160-4.5 Mcg Inhaler] 2 puff INHALATION BID 30 Days #1 each Fluconazole [Diflucan] 100 mg PO DAILY 5 Days #5 tab Ipratropium-Albuterol Nebulize [Duoneb 0.5 mg-3 mg/3 ml Soln] 3 ml INHALATION RT-Q2H PRN each PRN Reason: Shortness Of Breath Or Wheezing Nicotine 21Mg/24Hr Patch [Habitrol] 1 patch TRANSDERM DAILY patch Metoprolol Tartrate [Lopressor] 25 mg PO BID 30 Days #60 tab predniSONE 10 mg PO DIRECTED #30 tab Acetaminophen Tab [Tylenol] 650 mg PO Q6HR PRN tab PRN Reason: Mild Pain Or Fever > 100.5 Albuterol Sulfate [Albuterol Sulfate Hfa] 1 puff PO RT-Q4H PRN PRN Reason: Shortness Of Breath Albuterol Nebulized [Ventolin Nebulized (Accuneb)] 3 ml INHALATION Q6H 30 Days #6 pack Ipratropium-Albuterol Nebulize [Duoneb 0.5 mg-3 mg/3 ml Soln] 3 ml INHALATION RT-QID 30 Days #90 each Discharge Medication List Latanoprost/Pf [Latanoprost 0.005% Eye Drop] 1 drop LEFT EYE HS 08/18/20 [History] Levothyroxine Sodium 125 mcg PO DAILY 08/18/20 [History] PARoxetine HCL [Paxil] 20 mg PO DAILY 08/18/20 [History] Albuterol Sulfate [Albuterol Sulfate Hfa] 1 puff PO RT-Q4H PRN 04/01/22 [History] Apixaban [Eliquis] 5 mg PO BID 04/01/22 [History] Aspirin EC [Ecotrin Low Dose] 81 mg PO DAILY@1400 04/01/22 [History] Gabapentin [Neurontin] 100 mg PO TID 04/01/22 [History] Loratadine [Claritin] 10 mg PO DAILY 04/01/22 [History] OLANZapine [ZyPREXA] 15 mg PO HS 04/01/22 [History] Acetaminophen Tab [Tylenol] 650 mg PO Q6HR PRN tab 04/06/22 [Rx] Albuterol Nebulized [Ventolin Nebulized (Accuneb)] 3 ml INHALATION Q6H 30 Days #6 pack 04/06/22 [Rx] Budesonide-Formot 160-4.5 Mcg [Symbicort 160-4.5 Mcg Inhaler] 2 puff INHALATION BID 30 Days #1 each 04/06/22 [Rx] Fluconazole [Diflucan] 100 mg PO DAILY 5 Days #5 tab 04/06/22 [Rx] Ipratropium-Albuterol Nebulize [Duoneb 0.5 mg-3 mg/3 ml Soln] 3 ml INHALATION RT-Q2H PRN each 04/06/22 [Rx] Ipratropium-Albuterol Nebulize [Duoneb 0.5 mg-3 mg/3 ml Soln] 3 ml INHALATION RT-QID 30 Days #90 each 04/06/22 [Rx] Metoprolol Tartrate [Lopressor] 25 mg PO BID 30 Days #60 tab 04/06/22 [Rx] Nicotine 21Mg/24Hr Patch [Habitrol] 1 patch TRANSDERM DAILY patch 04/06/22 [Rx] predniSONE 10 mg PO DIRECTED #30 tab 04/06/22 [Rx] Follow up Appointment(s)/Referral(s): Josue Villela MD [Primary Care Provider] - 1-2 days Discharge Disposition: Left Against Medical Advice
[2022-05-22] MEDS ORDERED: APIXABAN 5 MG TAB PO SCH (09:00)
[2022-05-22] MEDS ORDERED: GABAPENTIN 100 MG CAP PO SCH (09:00)
[2022-05-22] MEDS ORDERED: SYMBICORT 160-4.5 MCG INHALER INHALATION SCH (09:00)
[2022-05-22] MEDS ORDERED: METOPROLOL TARTRATE 25 MG TAB PO SCH (09:00)
[2022-05-22] MEDS ORDERED: VANCOMYCIN 1,750 MG in SODIUM CHLORIDE 0.9% 500 ML 500 ML IVPB SCH (12:00)
[2022-05-22] MEDS ORDERED: ASPIRIN 81 MG PO SCH (14:00)
== END 2022-05-22 07:20 | disposition left against medical advice (07) ==
LOC: EC 20:54 → 6NMEDSUR 22:48
PROVIDERS: ADMIT Internal Medicine; ATTEND Internal Medicine
DX: L03.115 Cellulitis of right lower limb (principal); L03.116 Cellulitis of left lower limb; Z53.29 Procedure and treatment not carried out because of patient's decision for other reasons; J44.9 Chronic obstructive pulmonary disease, unspecified; I48.91 Unspecified atrial fibrillation; E78.5 Hyperlipidemia, unspecified; I10 Essential (primary) hypertension; K44.9 Diaphragmatic hernia without obstruction or gangrene; H40.9 Unspecified glaucoma; F41.9 Anxiety disorder, unspecified; F31.9 Bipolar disorder, unspecified; N17.9 Acute kidney failure, unspecified; F17.210 Nicotine dependence, cigarettes, uncomplicated; G62.9 Polyneuropathy, unspecified; E03.9 Hypothyroidism, unspecified; F41.0 Panic disorder [episodic paroxysmal anxiety]; Z79.890 Hormone replacement therapy; Z79.899 Other long term (current) drug therapy; Z79.82 Long term (current) use of aspirin; Z79.01 Long term (current) use of anticoagulants; Z79.51 Long term (current) use of inhaled steroids; Z83.3 Family history of diabetes mellitus; Z82.49 Family history of ischemic heart disease and other diseases of the circulatory system
CPT/HCPCS: 96366; 96365; 96367; 99285; 36415; 94640; 93005; 80053; 80048; 83605; 83735; 84100; 84484; 85025 ×2; 85610; 85730; 81003; 87040; G0378 ×2; J3370; J0696

== ENCOUNTER 2023-01-11 11:57 | Inpatient (IN) | payer MEDICARE, OTHER ==
--- NOTE | 2023-01-11 12:51 | XR ---
EXAMINATION TYPE: XR chest 2V DATE OF EXAM: 01/11/2023 COMPARISON: 04/03/2022, 04/18/2022, CT 04/03/2022 HISTORY: 67-year-old male with chest pain TECHNIQUE: AP and lateral views FINDINGS: The heart margins are obscured by underlying very large hiatal hernia with seems to encompass the ent alisia stomach and the majority of the transverse colon when correlating with patient's prior CT. Mild i nterstitial prominence is noted. This may be due to body habitus and magnification. There is also pat michelle opacity at the left mid and lower lung. No sizable pleural effusion is seen. IMPRESSION: Very large hiatal hernia occupying the lower chest. The entire stomach in the majority of the transve rse colon and likely herniated into the chest as seen on the patient's 04/03/2022 CT. There is adjacen t left basilar atelectasis versus infiltrate.
[2023-01-11 12:56] LABS: Basophils % (A) 0 %; Eosinophils # (A) 0.1 k/uL (0-0.7); Eosinophils % (A) 1 %; HCT 48.5 % (39.0-53.0); Lymphocytes # (A) 1.1 k/uL (1.0-4.8); Lymphocytes % (A) 13 %; MCH 31.1 pg (25.0-35.0); MCV 94.3 fL (80.0-100.0); Mean Platelet Volume 11.2; Monocytes # (A) 0.6 k/uL (0-1.0); Monocytes % (A) 7 %; Neutrophils # (A) 6.6 k/uL (1.3-7.7); Neutrophils % (A) 76 %; RBC 5.15 m/uL (4.30-5.90); RDW 14.7 % (11.5-15.5); WBC 8.6 k/uL (3.8-10.6)
[2023-01-11 13:10] LABS: Albumin 3.1 g/dL (3.5-5.0); Calcium 8.1 mg/dL (8.4-10.2); Potassium 3.5 mmol/L (3.5-5.1); Total Bilirubin 1.1 mg/dL (0.2-1.3); Total Protein 5.7 g/dL (6.3-8.2)
[2023-01-11 13:22] LABS: INR 1.4 (<1.2); Partial Thromboplastin Time 25.6 sec (22.0-30.0); Prothrombin Time 13.7 sec (9.0-12.0)
[2023-01-11] MEDS ORDERED: FUROSEMIDE 10 MG/ML 4 ML VIAL IV STA (14:24)
[2023-01-11] MEDS ORDERED: IPRATROPIUM-ALBUTEROL 3 ML NEB INHALATION STA (14:24)
--- NOTE | 2023-01-11 15:03 | ED ---
Chest Pain HPI - General Chief Complaint: Chest Pain Stated Complaint: chest pain Time Seen by Provider: 01/11/23 12:10 Source: patient, family, RN notes reviewed Mode of arrival: ambulatory Limitations: no limitations - History of Present Illness Initial Comments: 67-year-old male history of COPD and emphysema who is on 3 L of oxygen when necessary was brought in by family today because of shortness of breath and chest wall pain. Apparently fallen 3 times the last 3 weeks he denies any fevers chills or sweats he is very short of breath and dyspneic exertion. He does complain some palpitations. She has right side of his back is somewhat sore. Is of a history of atrial fibrillation. Also is had increased edema to his lower extremities. He does have a cough nonproductive. MD Complaint: chest pain, other - Related Data Home Medications Medication Instructions Recorded Confirmed Latanoprost/Pf [Latanoprost 0.005% 1 drop LEFT EYE HS 08/18/20 01/11/23 Eye Drop] Levothyroxine Sodium 125 mcg PO DAILY 08/18/20 01/11/23 Albuterol Sulfate [Albuterol 1 puff PO RT-Q4H PRN 04/01/22 01/11/23 Sulfate Hfa] Apixaban [Eliquis] 5 mg PO BID 04/01/22 01/11/23 Aspirin EC [Ecotrin Low Dose] 81 mg PO DAILY 04/01/22 01/11/23 Gabapentin [Neurontin] 200 mg PO TID 04/01/22 01/11/23 Loratadine [Claritin] 10 mg PO DAILY 04/01/22 01/11/23 Albuterol Nebulized [Ventolin 3 ml INHALATION RT-Q6H 01/11/23 01/11/23 Nebulized (Accuneb)] Flecainide [Tambocor] 50 mg PO BID 01/11/23 01/11/23 Fluticasone/Vilanterol [Breo 1 puff INHALATION RT-DAILY 01/11/23 01/11/23 Ellipta 200-25 Mcg Inhaler] Furosemide [Lasix] 80 mg PO DAILY 01/11/23 01/11/23 Minocycline [Minocin] 50 mg PO Q12HR 01/11/23 01/11/23 OLANZapine [ZyPREXA] 20 mg PO HS 01/11/23 01/11/23 PARoxetine HCL [Paxil] 30 mg PO HS 01/11/23 01/11/23 Pantoprazole Sodium [Protonix] 40 mg PO DAILY 01/11/23 01/11/23 Tiotropium [place] [Spiriva] 1 puff INHALATION RT-DAILY 01/11/23 01/11/23 Previous Rx's Medication Instructions Recorded Metoprolol Tartrate [Lopressor] 75 mg PO BID 30 Days #60 tab 12/22/22 Allergies Allergy/AdvReac Type Severity Reaction Status Date / Time No Known Allergies Allergy Verified 01/11/23 14:49 Review of Systems ROS Statement: Those systems with pertinent positive or pertinent negative responses have been documented in the HPI. ROS Other: All systems not noted in ROS Statement are negative. EKG Findings - EKG Results: EKG: interpreted by ERMPhillip (EKG shows sinus rhythm first-degree AV block frequent PACs rate 81 AR interval 226 QRS duration 170 daily since QTC of 311/[address]-T wave changes interpreted by me) Past Medical History Past Medical History: Atrial Fibrillation, COPD, Eye Disorder, Hyperlipidemia, Hypertension, Osteoarthritis (OA), Thyroid Disorder Additional Past Medical History / Comment(s): Sober for 10 years, hiatal hernia, glaucoma left eye, possible stroke behind left eye per opthamologist. arthritis in back,cystic acne on back to see apns. History of Any Multi-Drug Resistant Organisms: None Reported Additional Past Surgical History / Comment(s): HYDROCELE surg. x2, hemorrhoidectomy, colonoscopy, cataract surgery Past Anesthesia/Blood Transfusion Reactions: No Reported Reaction Additional Past Anesthesia/Blood Transfusion Reaction / Comment(s): no blood transfusions Past Psychological History: Anxiety, Bipolar, Panic Disorder Smoking Status: Current every day smoker Past Alcohol Use History: None Reported Past Drug Use History: Marijuana - Past Family History Mother Family Medical History: Diabetes Mellitus Father Family Medical History: Coronary Artery Disease (CAD) General Exam - General Exam Comments Initial Comments: Is a well-developed well-nourished awake alert male demonstrate evidence of dyspnea with audible wheezing and accessory muscle use Limitations: no limitations General appearance: alert, anxious, in distress Head exam: Present: atraumatic, normocephalic, normal inspection Eye exam: Present: normal appearance, PERRL, EOMI. Absent: scleral icterus, conjunctival injection, periorbital swelling ENT exam: Present: mucous membranes dry Neck exam: Present: normal inspection, full ROM, other. Absent: tenderness, meningismus, lymphadenopathy Respiratory exam: Present: wheezes, rhonchi, accessory muscle use, decreased breath sounds (No stridor JVD or bruits). Absent: respiratory distress, rales, stridor Cardiovascular Exam: Present: regular rate, normal rhythm, normal heart sounds. Absent: systolic murmur, diastolic murmur, rubs, gallop, clicks GI/Abdominal exam: Present: soft, normal bowel sounds. Absent: distended, tenderness, guarding, rebound, rigid Extremities exam: Present: full ROM, normal capillary refill, pedal edema, other (Stasis dermatitis). Absent: tenderness, joint swelling, calf tenderness Back exam: Present: normal inspection, tenderness (L tenderness over the right side no definitive step-off or crepitation) Neurological exam: Present: alert, oriented X3, CN II-XII intact Psychiatric exam: Present: normal affect, normal mood Skin exam: Present: warm, dry, intact, other (Stasis dermatitis to the extremities is noted). Absent: rash Course Vital Signs 01/11/23 01/11/23 01/11/23 12:03 13:05 14:05 Temperature 98 F Pulse Rate 80 79 74 Respiratory 20 24 24 Rate Blood Pressure 138/97 132/86 119/94 O2 Sat by Pulse 89 L 96 97 Oximetry 01/11/23 01/11/23 15:00 15:11 Temperature Pulse Rate 67 77 Respiratory Rate Blood Pressure O2 Sat by Pulse Oximetry Chest Pain MDM - MDM I did interpret the imaging evidence of a hiatal hernia seen. Patient again in the last treatment with improvement in his aeration he does complain of pain he has have a chronic hernia which is been evaluated and due to the patient's chronic condition per his family he was not to have surgery. No fevers chills sweats due to the pain the patient complains of also due to his kidney function will get a noncontrast CT of the chest abdomen. Patient will be admitted the tentative diagnosis COPD and CHF with chest wall pain.Was pt. sent in by a medical professional or institution (, PA, GIVER, urgent care, hospital, or [facility]...) When possible be specific @ -[No] Did you speak to anyone other than the patient for history (EMS, parent, family, police, friend...)? What history was obtained from this source @ -[EMS, family] Did you review nursing and triage notes (agree or disagree)? Why? @ -[I reviewed and agree with nursing and triage notes] Were old charts reviewed (outside hosp., previous admission, EMS record, old EKG, old radiological studies, urgent care reports/EKG's, [facility] records)? Report findings @ -[No old charts were reviewed] Differential Diagnosis (chest pain, altered mental status, abdominal pain women, abdominal pain men, vaginal bleeding, weakness, fever, dyspnea, syncope, headache, dizziness, GI bleed, back pain, seizure, CVA, palpatations, mental health, musculoskeletal)? @ -[88, CHF, chest wall pain] EKG interpreted by me (3pts min.). @ -[As above] X-rays interpreted by me (1pt min.). @ -[As above] CT interpreted by me (1pt min.). @ -[None done] U/S interpreted by me (1pt. min.). @ -[None done] What testing was considered but not performed or refused? (CT, X-rays, U/S, labs)? Why? @ -[None] What meds were considered but not given or refused? Why? @ -[None] Did you discuss the management of the patient with other professionals (professionals i.e. , PA, GIVER, lab, RT, psych nurse, long term care social worker, master fisher, teacher, access control officer, field nurse case manager)? Give summary @ -[Dr. Sanon] Was smoking cessation discussed for >3mins.? @ -[No] Was critical care preformed (if so, how long)? @ -[31 minutes] Were there social determinants of health that impacted care today? How? (Homelessness, low income, unemployed, alcoholism, drug addiction, transportatio n, low edu. Level, literacy, decrease access to med. care, usp, rehab)? @ -[No] Was there de-escalation of care discussed even if they declined (Discuss DNR or withdrawal of care, Hospice)? DNR status @ -[No] What co-morbidities impacted this encounter? (DM, HTN, Smoking, COPD, CAD, Cancer, CVA, ARF, Chemo, Hep., AIDS, mental health diagnosis, sleep apnea, morbid obesity)? @ -[COPD, hiatal hernia] Was patient admitted / discharged? Hospital course, mention meds given and route, prescriptions, significant lab abnormalities, going to OR and other pertinent info. @ -[hospital course] admitted Undiagnosed new problem with uncertain prognosis? @ -[No] Drug Therapy requiring intensive monitoring for toxicity (Heparin, Nitro, Insulin, Cardizem)? @ -[No] Were any procedures done? @ -[No] Diagnosis/symptom? @ -[The exacerbation, CHF, chest wall pain] Acute, or Chronic, or Acute on Chronic? @ -[Acute] Uncomplicated (without systemic symptoms) or Complicated (systemic symptoms)? @ -[default] Side effects of treatment? @ -[No] Exacerbation, Progression, or Severe Exacerbation? @ -[No] Poses a threat to life or bodily function? How? (Chest pain, [place], [place], pneumonia, PE, COPD, DKA, ARF, appy, cholecystitis, CVA, Diverticulitis, Homicidal, Suicidal, threat to staff... and all critical care pts) @ -[No] Critical Care Time Critical Care Time: Yes Total Critical Care Time: 31 Disposition Clinical Impression: Chest wall syndrome, COPD with exacerbation, CHF (congestive heart failure), Renal insufficiency syndrome Disposition: ADMITTED IP TO THIS [facility] Condition: Fair Referrals: Josue Villela MD [Primary Care Provider] - 1-2 days Decision Date: 01/11/23 Decision Time: 14:30
[2023-01-11 15:05] LABS: Large Platelets Present
[2023-01-11 15:09] LABS: Platelet Count 121 k/uL (150-450)
[2023-01-11] MEDS ORDERED: HYDROmorphone 1 MG/ML 1 ML SYRINGE IVP STA (15:14)
[2023-01-11] MEDS ORDERED: ACETAMINOPHEN TAB 325 MG TAB PO PRN (15:24)
[2023-01-11] MEDS ORDERED: NALOXONE 0.4 MG/ML 1 ML VIAL IVP PRN (15:24)
--- NOTE | 2023-01-11 15:58 | CT ---
EXAMINATION TYPE: CT ChestAbdPelvis wo con DATE OF EXAM: 01/11/2023 COMPARISON: CT chest April 03, 2022 HISTORY: chest and sharp abdominal pain CT DLP: 1157 mGycm. Automated Exposure Control for Dose Reduction was Utilized. TECHNIQUE: CT scan of the thorax, abdomen and pelvis is performed without IV contrast. FINDINGS: LUNGS: Mild underlying emphysematous change is redemonstrated. Persistent focal atelectasis and/or li mited consolidation in the left lung base similar to prior. No pleural effusion or pneumothorax bilat erally MEDIASTINUM: There are no greater than 1 cm hilar or mediastinal lymph nodes. No cardiomegaly or pe ricardial effusion is seen. Prominent pulmonary arteries redemonstrated consistent with underlying p ulmonary artery hypertension. OTHER: Persistent large size hiatal hernia containing portions of stomach and colon along with intra- abdominal fat and tiny mesenteric vessels. There is abnormal twisting of the herniated stomach redemo nstrated. There is no suspicious dilatation of the esophagus in the thorax. LIVER/GB: No significant abnormality is appreciated. PANCREAS: No significant abnormality is seen. SPLEEN: No significant abnormality is seen. ADRENALS: No significant abnormality is seen. KIDNEYS: Moderately distended bladder. No intraluminal calculus. Mild fullness of the renal pelvises likely on the basis of distended bladder. No significant calyceal dilatation. BOWEL: No significant abnormality is seen. GENITAL ORGANS: No gross abnormality seen. LYMPH NODES: No greater than 1cm abdominal or pelvic lymph nodes are appreciated. OSSEOUS STRUCTURES: Prominent Schmorl node superior T11 endplate redemonstrated. Mild height loss in the mid thoracic vertebra. Mild height moderate height loss superior L3 endplate. Osseous structures are demineralized. Mild chronic compression fractures presumed. No suspicious linear lucency noted. N o posterior ossific retropulsion seen. OTHER: Moderate to large sized fat-containing left inguinal hernia. Mild calcified plaque of the infr arenal abdominal aorta extends into branch vessels IMPRESSION: Large hiatal hernia redemonstrated. Intrathoracic stomach again seen. No bowel obstructi on. Moderately distended bladder. No suspicious new or acute findings otherwise seen on noncontrast C T.
[2023-01-11] MEDS ORDERED: EPINEPHrine 10 ML SYRINGE (0.1 MG/ML) ONE (17:23)
[2023-01-11] MEDS ORDERED: DEXTROSE 5% IN WATER 50 ML BAG ONE (17:23)
[2023-01-11] MEDS ORDERED: SODIUM BICARB 8.4% 50 ML SYR (1 MEQ/ML) ONE (17:23)
[2023-01-11] MEDS ORDERED: AMIODARONE 50 MG/ML 3 ML VIAL IV ONE (17:23)
[2023-01-11 17:30] LABS: Glucose,Whole Blood 140 mg/dL (70-110)
[2023-01-11] MEDS ORDERED: methylPREDNISolone SOD SUCCI 125 MG/2 ML VIAL IV SCH (18:00)
[2023-01-11 18:11] LABS: Basophils # (A) 0.1 k/uL (0-0.2); Basophils % (A) 1 %; Eosinophils # (A) 0.1 k/uL (0-0.7); Eosinophils % (A) 1 %; HCT 51.4 % (39.0-53.0); HGB 16.4 gm/dL (13.0-17.5); Lymphocytes # (A) 2.3 k/uL (1.0-4.8); Lymphocytes % (A) 22 %; MCH 30.8 pg (25.0-35.0); MCV 96.4 fL (80.0-100.0); Mean Platelet Volume 10.7; Monocytes # (A) 0.8 k/uL (0-1.0); Monocytes % (A) 7 %; Neutrophils # (A) 7.2 k/uL (1.3-7.7); Neutrophils % (A) 68 %; Platelet Count 153 k/uL (150-450); RBC 5.33 m/uL (4.30-5.90); WBC 10.6 k/uL (3.8-10.6)
[2023-01-11 18:16] LABS: Calcium 7.7 mg/dL (8.4-10.2); Potassium 3.1 mmol/L (3.5-5.1); Total Protein 5.5 g/dL (6.3-8.2)
--- NOTE | 2023-01-11 18:21 | XR ---
EXAMINATION TYPE: XR chest 1V confirm line plcmt DATE OF EXAM: 01/11/2023 6:08 PM COMPARISON: CT same day TECHNIQUE: XR chest 1V confirm line plcmt Portable AP radiograph of the chest. CLINICAL INDICATION:Male, 67 years old with history of intubated; FINDINGS: Lungs/Pleura: There is no evidence of pleural effusion or pneumothorax. Atelectasis above the left d iaphragm is seen on CT same day. Pulmonary vascularity: Unremarkable. Heart/mediastinum: Cardiomediastinal silhouette is enlarged and stable. Musculoskeletal: No acute osseous pathology. Other findings: None Lines/Tubes: Nasogastric tube with tip terminating over the large abdominal hernia just under the diaphragm. Endotracheal tube terminates 6.9 cm above the preeti. IMPRESSION: 1. Nasogastric tube felt to be in appropriate position when comparing to CT same day. 2. Endotracheal tube 6.8 cm with coronal. Consider advancement of 3 cm for more optimal placement.
[2023-01-11 18:26] LABS: ABG Base Excess 10.1 mmol/L; ABG HCO3 38 mmol/L (21-25); ABG Oxygen Saturation 97.7 % (94-97); ABG PO2 153 mmHg (83-108); ABG TCO2 42 mmol/L (19-24); Allen Test Performed? Yes
[2023-01-11 18:32] LABS: ABG PCO2 102 mmHg (35-45); ABG PH 7.18 (7.35-7.45)
--- NOTE | 2023-01-11 18:50 | ED ---
Medical Decision Making - Medical Decision Making Patient is being transferred to the floor when a CODE BLUE is called. Enter the room to find compressions being performed. Patient reportedly went bradycardic and then into asystole. Patient was given 3 epinephrine, 2 bicarb. He was intubated with a 7-1/2 ET tube, 22 cm at the lip by myself. We did receive pulses back after approximately 5 minutes. EKG is performed which demonstrates a left bundle branch block. Patient does have several episodes of nonsustained V. tach and therefore was given an amiodarone bolus. Chest x-ray is performed and ET tube is advanced 2 cm to 24 cm at the lip. Laboratory studies ordered at this time. Dr. Sanon and Dr. Steve are made aware. Patient moved a trauma 2 and will be transferred to the ICU - Lab Data Result diagrams: 01/11/23 17:43 01/11/23 17:43 Lab Results 01/11/23 01/11/23 01/11/23 Range/Units 12:26 12:26 12:26 WBC 8.6 (3.8-10.6) k/uL RBC 5.15 (4.30-5.90) m/uL Hgb 16.0 (13.0-17.5) gm/dL Hct 48.5 (39.0-53.0) % MCV 94.3 (80.0-100.0) fL MCH 31.1 (25.0-35.0) pg MCHC 33.0 (31.0-37.0) g/dL RDW 14.7 (11.5-15.5) % Plt Count 121 L (150-450) k/uL MPV 11.2 Neutrophils % 76 % Lymphocytes % 13 % Monocytes % 7 % Eosinophils % 1 % Basophils % 0 % Neutrophils # 6.6 (1.3-7.7) k/uL Lymphocytes # 1.1 (1.0-4.8) k/uL Monocytes # 0.6 (0-1.0) k/uL Eosinophils # 0.1 (0-0.7) k/uL Basophils # 0.0 (0-0.2) k/uL Manual Slide Review Performed Large Platelets Present PT 13.7 H (9.0-12.0) sec INR 1.4 H (<1.2) APTT 25.6 (22.0-30.0) sec D-Dimer 0.41 (<0.60) mg/L FEU Sodium 132 L (137-145) mmol/L Potassium 3.5 (3.5-5.1) mmol/L Chloride 90 L (98-107) mmol/L Carbon Dioxide 36 H (22-30) mmol/L Anion Gap 6 mmol/L BUN 25 H (9-20) mg/dL Creatinine 1.56 H (0.66-1.25) mg/dL Est GFR (CKD-EPI)AfAm 53 (>60 ml/min/1.73 sqM) Est GFR (CKD-EPI)NonAf 46 (>60 ml/min/1.73 sqM) Glucose 109 H (74-99) mg/dL Calcium 8.1 L (8.4-10.2) mg/dL Magnesium 2.0 (1.6-2.3) mg/dL Total Bilirubin 1.1 (0.2-1.3) mg/dL AST 71 H (17-59) U/L ALT 68 H (4-49) U/L Alkaline Phosphatase 111 (38-126) U/L Troponin I (0.000-0.034) ng/mL NT-Pro-B Natriuret Pep pg/mL Total Protein 5.7 L (6.3-8.2) g/dL Albumin 3.1 L (3.5-5.0) g/dL Lipase 229 (23-300) U/L Procalcitonin (0.02-0.09) ng/mL 01/11/23 01/11/23 01/11/23 Range/Units 12:26 12:26 14:28 WBC (3.8-10.6) k/uL RBC (4.30-5.90) m/uL Hgb (13.0-17.5) gm/dL Hct (39.0-53.0) % MCV (80.0-100.0) fL MCH (25.0-35.0) pg MCHC (31.0-37.0) g/dL RDW (11.5-15.5) % Plt Count (150-450) k/uL MPV Neutrophils % % Lymphocytes % % Monocytes % % Eosinophils % % Basophils % % Neutrophils # (1.3-7.7) k/uL Lymphocytes # (1.0-4.8) k/uL Monocytes # (0-1.0) k/uL Eosinophils # (0-0.7) k/uL Basophils # (0-0.2) k/uL Manual Slide Review Large Platelets PT (9.0-12.0) sec INR (<1.2) APTT (22.0-30.0) sec D-Dimer (<0.60) mg/L FEU Sodium (137-145) mmol/L Potassium (3.5-5.1) mmol/L Chloride (98-107) mmol/L Carbon Dioxide (22-30) mmol/L Anion Gap mmol/L BUN (9-20) mg/dL Creatinine (0.66-1.25) mg/dL Est GFR (CKD-EPI)AfAm (>60 ml/min/1.73 sqM) Est GFR (CKD-EPI)NonAf (>60 ml/min/1.73 sqM) Glucose (74-99) mg/dL Calcium (8.4-10.2) mg/dL Magnesium (1.6-2.3) mg/dL Total Bilirubin (0.2-1.3) mg/dL AST (17-59) U/L ALT (4-49) U/L Alkaline Phosphatase (38-126) U/L Troponin I 0.015 (0.000-0.034) ng/mL NT-Pro-B Natriuret Pep 1590 pg/mL Total Protein (6.3-8.2) g/dL Albumin (3.5-5.0) g/dL Lipase (23-300) U/L Procalcitonin 0.08 (0.02-0.09) ng/mL Critical Care Time Critical Care Time: Yes Critical Care Time: 35 minutes Disposition Clinical Impression: COPD with exacerbation, CHF (congestive heart failure), Renal insufficiency syndrome Disposition: ADMITTED IP TO THIS HOSP Condition: Serious Is patient prescribed a controlled substance at d/c from ED?: No Decision to Admit Reason: Admit from EC Procedures - Intubation Size: 4 Assist Device Used: fiber optic device ET Tube Size: 7.5 ET Tube Uncuffed: No Tube Secured Depth (cm): 22 Tube Secured Location: lips Tube Placement Confirmation: visualized tube passing through cords, equal breath sounds bilaterally, no breath sounds over epigastrium, confirmation by capnometry Patient Tolerated Procedure: well, no complications Intubation Complications: none
[2023-01-11] MEDS: GABAPENTIN 100 MG CAP PO SCH ×2 (18:58→22:34)
--- NOTE | 2023-01-11 18:59 | P.HPIM ---
History of Present Illness H&P Date: 01/11/23 Chief Complaint: Shortness of breath, chest pain This is a 67-year-old patient who follows with Dr. Alvin Villela. Chronic stable medical conditions include hyperlipidemia, hypothyroid, bipolar, atrial fibrillation. Patient is a smoker. COPD, CHF, bipolar, hiatal hernia Patient presented to the ER, brought in by the family because of shortness of breath and chest pain. In the last 3 weeks apparently patient is followed about 3 times. No fever no chills. Some palpitations. Increasing lower extremity edema. Nonproductive cough. Late in the afternoon patient was found to be in PEA. Code team was called. Patient did require epinephrine. intubated. FiO2 100 and PEEP of 5. Patient have a broad complex tachycardia. Activities Volunteer Dr. Steve was informed. Review of systems cannot be done as patient is intubated Past medical history to include: COPD, hyperlipidemia, hypothyroid, bipolar, atrial fibrillation, bipolar, CHF, he had hernia Social history: Lives with sister Marifer, smokes a pack a day for many years, no alcohol Physical examination: VITAL SIGNS: Afebrile, 82, 18, 133.95, 100% on the ventilator GENERAL: BMI 29.9, laying in bed, intubated EYES: Pupils equal. Conjunctiva normal. HEENT: External appearance of nose and ears normal, oral cavity grossly normal. Endotracheal tube NECK: JVD is able to assess; masses not palpable. HEART: First and second heart sounds are normal; edema present LUNGS: Respiratory rate increased; decreased breath sounds or wheezing. ABDOMEN: Soft, nontender, liver spleen not palpable, no masses palpable. PSYCH: Lethargic MUSCULOSKELETAL:No Clubbing/cyanosis;muscles-grossly intact. Evidence of OA NEUROLOGICAL: Cranial nerves grossly intact; no facial asymmetry, power and sensation grossly intact. LYMPHATICS: No lymph nodes palpable in the axilla and neck INVESTIGATIONS, reviewed in the clinical context: White count 10.6 hemoglobin 16.4 platelets 153 potassium 3.1 BUN 24 creatinine 1.4 to AST 79 ALT 65 Procalcitonin 0.08 ABG: PH 7.18 pCO2 102 pO2 153 EKG tracing personally reviewed by me-normal sinus rhythm. Intraventricular block. Poor R-wave progression. Chest x-ray film personally reviewed by me-large hiatal hernia. Cardiomegaly. Venous prominence. Assessment and plan: -Acute hypoxic and hypercapnic respiratory failure secondary to COPD exacerbation and CHF exacerbation Patient on ventilator assist. 100% FiO2 -Paroxysmal atrial fibrillation flutter, currently sinus rhythm Telemetry. Eliquis 5 mg twice a day. Lopressor 75 mg twice a day flecainide 50 mg twice a day -Acute COPD exacerbation in a current smoker Albuterol 4 times a day.. IV Solu-Medrol. Nebulized Perforomist and Pulmicort, -Acute on Chronic congestive heart failure from systolic dysfunction EF 40-45%- IV Lasix 2-D echocardiogram -Hypothyroid Levothyroxine 125 g a day -Essential hypertension Lopressor 50 mg twice a day -Chronic nicotine dependence, cigarette smoker Nicotine patch -Bipolar disorder Zyprexa 20 mg daily at bedtime. -Full code Intubated. Critical. Consultation air traffic coordinator. Cardiology. IV Lasix. Bronchodilators. Resume home medications. 2-D echocardiogram. Strict I's and O's. Past Medical History Past Medical History: Atrial Fibrillation, COPD, Eye Disorder, Hyperlipidemia, Hypertension, Osteoarthritis (OA), Thyroid Disorder Additional Past Medical History / Comment(s): Sober for 10 years, hiatal hernia, glaucoma left eye, possible stroke behind left eye per opthamologist. arthritis in back,cystic acne on back to see evidence specialist. History of Any Multi-Drug Resistant Organisms: None Reported Additional Past Surgical History / Comment(s): HYDROCELE surg. x2, hemorrhoidectomy, colonoscopy, cataract surgery Past Anesthesia/Blood Transfusion Reactions: No Reported Reaction Additional Past Anesthesia/Blood Transfusion Reaction / Comment(s): no blood transfusions Past Psychological History: Anxiety, Bipolar, Panic Disorder Smoking Status: Current every day smoker Past Alcohol Use History: None Reported Past Drug Use History: Marijuana - Past Family History Mother Family Medical History: Diabetes Mellitus Father Family Medical History: Coronary Artery Disease (CAD) Medications and Allergies Home Medications Medication Instructions Recorded Confirmed Type Latanoprost/Pf [Latanoprost 0.005% 1 drop LEFT EYE HS 08/18/20 01/11/23 History Eye Drop] Levothyroxine Sodium 125 mcg PO DAILY 08/18/20 01/11/23 History Albuterol Sulfate [Albuterol 1 puff PO RT-Q4H PRN 04/01/22 01/11/23 History Sulfate Hfa] Apixaban [Eliquis] 5 mg PO BID 04/01/22 01/11/23 History Aspirin EC [Ecotrin Low Dose] 81 mg PO DAILY 04/01/22 01/11/23 History Gabapentin [Neurontin] 200 mg PO TID 04/01/22 01/11/23 History Loratadine [Claritin] 10 mg PO DAILY 04/01/22 01/11/23 History Metoprolol Tartrate [Lopressor] 75 mg PO BID 30 Days #60 tab 12/22/22 01/11/23 Rx Albuterol Nebulized [Ventolin 3 ml INHALATION RT-Q6H 01/11/23 01/11/23 History Nebulized (Accuneb)] Flecainide [Tambocor] 50 mg PO BID 01/11/23 01/11/23 History Fluticasone/Vilanterol [Breo 1 puff INHALATION RT-DAILY 01/11/23 01/11/23 History Ellipta 200-25 Mcg Inhaler] Furosemide [Lasix] 80 mg PO DAILY 01/11/23 01/11/23 History Minocycline [Minocin] 50 mg PO Q12HR 01/11/23 01/11/23 History OLANZapine [ZyPREXA] 20 mg PO HS 01/11/23 01/11/23 History PARoxetine HCL [Paxil] 30 mg PO HS 01/11/23 01/11/23 History Pantoprazole Sodium [Protonix] 40 mg PO DAILY 01/11/23 01/11/23 History Tiotropium [place] [Spiriva] 1 puff INHALATION RT-DAILY 01/11/23 01/11/23 History Allergies Allergy/AdvReac Type Severity Reaction Status Date / Time No Known Allergies Allergy Verified 01/11/23 14:49 Physical Exam Vitals: Vital Signs Temp Pulse Resp BP Pulse Ox FiO2 01/11/23 18:06 16 01/11/23 18:00 82 18 133/95 100 01/11/23 17:59 100 01/11/23 16:00 89 18 125/83 97 01/11/23 15:11 77 01/11/23 15:00 67 111/81 01/11/23 14:05 74 24 119/94 97 01/11/23 13:05 79 24 132/86 96 01/11/23 12:03 98 F 80 20 138/97 89 L Intake and Output 01/11/23 01/11/23 01/11/23 06:59 14:59 22:59 Other: Weight 108.409 kg Results CBC & Chem 7: 01/11/23 17:43 01/11/23 17:43 Labs: Abnormal Lab Results - Last 24 Hours (Table) 01/11/23 01/11/23 01/11/23 Range/Units 12:26 12:26 12:26 Plt Count 121 L (150-450) k/uL PT 13.7 H (9.0-12.0) sec INR 1.4 H (<1.2) Sodium 132 L (137-145) mmol/L Chloride 90 L (98-107) mmol/L Carbon Dioxide 36 H (22-30) mmol/L BUN 25 H (9-20) mg/dL Creatinine 1.56 H (0.66-1.25) mg/dL Glucose 109 H (74-99) mg/dL POC Glucose (mg/dL) (70-110) mg/dL Calcium 8.1 L (8.4-10.2) mg/dL AST 71 H (17-59) U/L ALT 68 H (4-49) U/L Total Protein 5.7 L (6.3-8.2) g/dL Albumin 3.1 L (3.5-5.0) g/dL 01/11/23 Range/Units 17:28 Plt Count (150-450) k/uL PT (9.0-12.0) sec INR (<1.2) Sodium (137-145) mmol/L Chloride (98-107) mmol/L Carbon Dioxide (22-30) mmol/L BUN (9-20) mg/dL Creatinine (0.66-1.25) mg/dL Glucose (74-99) mg/dL POC Glucose (mg/dL) 140 H (70-110) mg/dL Calcium (8.4-10.2) mg/dL AST (17-59) U/L ALT (4-49) U/L Total Protein (6.3-8.2) g/dL Albumin (3.5-5.0) g/dL
[2023-01-11] MEDS: NICOTINE 21MG/24HR PATCH TRANSDERM SCH (19:13)
[2023-01-11] MEDS: methylPREDNISolone SOD SUCCI 125 MG/2 ML VIAL IV SCH ×2 (19:26→23:16)
[2023-01-11] MEDS: FORMOTEROL FUMARATE 20 MCG/2 ML NEBU INHALATION SCH (19:36)
[2023-01-11] MEDS: BUDESONIDE 1 MG/2 ML NEBU INHALATION SCH (19:36)
[2023-01-11] MEDS: ALBUTEROL NEBULIZED 2.5 MG/3 ML INHALATION SCH (19:36)
[2023-01-11] MEDS ORDERED: FUROSEMIDE 10 MG/ML 10 ML VIAL IV SCH (21:00)
[2023-01-11] MEDS ORDERED: PARoxetine 10 MG TAB PO SCH (21:00)
[2023-01-11] MEDS: HYDROmorphone 1 MG/ML 1 ML SYRINGE IVP SCH ×2 (21:02→23:14)
[2023-01-11 22:21] LABS: Glucose,Whole Blood 136 mg/dL (70-110)
[2023-01-11] MEDS: APIXABAN 5 MG TAB PO SCH (22:25)
[2023-01-11] MEDS: CHLORHEXIDINE GLUCONATE 15 ML CUP MUCOUS MEM SCH (22:25)
[2023-01-11] MEDS: LATANOPROST 0.005% OPHTH DROPS 2.5 ML BTL LEFT EYE SCH (22:26)
[2023-01-11] MEDS: OLANZapine 10 MG TAB PO SCH (22:26)
[2023-01-11] MEDS: METOPROLOL TARTRATE 25 MG TAB PO SCH (22:26)
[2023-01-11] MEDS: FLECAINIDE 50 MG TAB PO SCH (22:26)
[2023-01-11 22:43] LABS: Basophils # (A) 0.1 k/uL (0-0.2); Basophils % (A) 1 %; Eosinophils # (A) 0.1 k/uL (0-0.7); Eosinophils % (A) 0 %; HCT 53.9 % (39.0-53.0); HGB 17.2 gm/dL (13.0-17.5); Lymphocytes # (A) 0.4 k/uL (1.0-4.8); Lymphocytes % (A) 3 %; MCH 30.7 pg (25.0-35.0); MCHC 31.8 g/dL (31.0-37.0); MCV 96.3 fL (80.0-100.0); Mean Platelet Volume 10.7; Monocytes # (A) 1.1 k/uL (0-1.0); Monocytes % (A) 7 %; Neutrophils # (A) 14.4 k/uL (1.3-7.7); Neutrophils % (A) 89 %; Platelet Count 143 k/uL (150-450); RDW 14.1 % (11.5-15.5); WBC 16.2 k/uL (3.8-10.6)
[2023-01-11 22:48] LABS: ABG Base Excess 13.4 mmol/L; ABG HCO3 39 mmol/L (21-25); ABG Oxygen Saturation 92.5 % (94-97); ABG PH 7.35 (7.35-7.45); ABG PO2 67 mmHg (83-108); ABG TCO2 41 mmol/L (19-24); Allen Test Performed? Yes
[2023-01-11 22:50] LABS: Calcium 7.8 mg/dL (8.4-10.2); Potassium 3.5 mmol/L (3.5-5.1)
[2023-01-11 22:50] LABS: ABG PCO2 71 mmHg (35-45)
[2023-01-11] MEDS ORDERED: SODIUM CHLORIDE 0.9% 1,000 ML IV ONE (23:02)
--- NOTE | 2023-01-11 23:17 | XR ---
EXAMINATION TYPE: XR chest 1V portable DATE OF EXAM: 01/11/2023 COMPARISON: 01/11/2023 HISTORY: Respiratory failure TECHNIQUE: Single view FINDINGS: Endotracheal tube is 5.5 cm from the preeti. There is nasogastric tube with tip likely in t he stomach. There is high position of the splenic flexure of the colon. There is atelectasis and infi ltrate left lower lobe. There is pulmonary interstitial edema. Thoracic aorta is atheromatous. There are chest leads. IMPRESSION: NG tube likely in the gastric fundus. There are loops of bowel over the left lower lung f ield related to very large hiatal hernia that contains the stomach and splenic flexure of the colon. There is intrathoracic stomach based on the CT scan performed today. There is pulmonary interstitial edema. The heart and lungs appear stable compared to chest x-ray 4 hours ago.
[2023-01-11 23:44] LABS: Glucose,Whole Blood 130 mg/dL (70-110)
[2023-01-12] MEDS ORDERED: SODIUM CHLORIDE 0.9% 1,000 ML IV ONE (00:07)
[2023-01-12] MEDS: ALBUTEROL NEBULIZED 2.5 MG/3 ML INHALATION SCH ×6 (00:23→20:33)
[2023-01-12] MEDS: NOREPINEPHRINE 4 MG in SODIUM CHLORIDE 0.9% 250 ML IV SCH ×3 (02:42→21:19)
[2023-01-12] MEDS: HYDROmorphone 1 MG/ML 1 ML SYRINGE IVP SCH ×3 (05:23→12:11)
[2023-01-12] MEDS: methylPREDNISolone SOD SUCCI 125 MG/2 ML VIAL IV SCH ×4 (05:23→23:34)
[2023-01-12 05:56] LABS: Glucose,Whole Blood 145 mg/dL (70-110)
[2023-01-12 06:03] LABS: Basophils % (A) 0 %; Calcium 7.8 mg/dL (8.4-10.2); Eosinophils % (A) 0 %; HCT 50.1 % (39.0-53.0); HGB 16.2 gm/dL (13.0-17.5); Lymphocytes # (A) 0.5 k/uL (1.0-4.8); Lymphocytes % (A) 3 %; MCH 31.2 pg (25.0-35.0); MCHC 32.3 g/dL (31.0-37.0); MCV 96.8 fL (80.0-100.0); Monocytes # (A) 0.3 k/uL (0-1.0); Monocytes % (A) 3 %; Neutrophils # (A) 12.9 k/uL (1.3-7.7); Neutrophils % (A) 93 %; Platelet Count 123 k/uL (150-450); Potassium 3.7 mmol/L (3.5-5.1); RBC 5.17 m/uL (4.30-5.90); RDW 14.7 % (11.5-15.5); WBC 13.9 k/uL (3.8-10.6)
[2023-01-12] MEDS ORDERED: Potassium Replacement Protocol 1 EACH MISC MISCELLANE PRN ×2 (06:14→22:45)
[2023-01-12 06:23] LABS: ABG Base Excess 11.1 mmol/L; ABG HCO3 37 mmol/L (21-25); ABG Oxygen Saturation 96.3 % (94-97); ABG PCO2 67 mmHg (35-45); ABG PH 7.35 (7.35-7.45); ABG PO2 97 mmHg (83-108); ABG TCO2 39 mmol/L (19-24); Allen Test Performed? Yes
[2023-01-12] MEDS: LEVOTHYROXINE 125 MCG TAB PO SCH (06:53)
[2023-01-12] MEDS ORDERED: POTASSIUM BICARBONATE/CIT AC 20 MEQ TABLET.EFF NG-TUBE SCH (07:30)
[2023-01-12] MEDS ORDERED: TIOTROPIUM 2.5 MCG INHALER INHALATION SCH (08:00)
[2023-01-12] MEDS ORDERED: SYMBICORT 160-4.5 MCG INHALER INHALATION SCH (08:00)
[2023-01-12] MEDS: FORMOTEROL FUMARATE 20 MCG/2 ML NEBU INHALATION SCH ×2 (08:18→20:33)
[2023-01-12] MEDS: BUDESONIDE 1 MG/2 ML NEBU INHALATION SCH ×2 (08:18→20:33)
[2023-01-12] MEDS: LACTATED RINGERS 1,000 ML IV SCH ×2 (08:30→22:08)
[2023-01-12] MEDS: IPRATROPIUM 0.5 MG/2.5 ML NEBU INHALATION SCH ×4 (08:51→20:38)
--- NOTE | 2023-01-12 08:58 | XR ---
EXAMINATION TYPE: XR chest 1V DATE OF EXAM: 01/12/2023 CLINICAL HISTORY: Difficulty breathing progress study. TECHNIQUE: Single AP portable semiupright view of the chest is obtained. COMPARISON: Chest x-ray and CT from one day earlier FINDINGS: Stable endotracheal and orogastric tubes. Persistent large hiatal hernia. Persistent bibasilar opacities. Upper lungs remain clear without pneu mothorax. Osseous structures are intact. IMPRESSION: Large hiatal hernia with bibasilar atelectasis and/or infiltrate redemonstrated. No signi ficant change from one day earlier.
[2023-01-12] MEDS ORDERED: FUROSEMIDE 80 MG TAB PO SCH (09:00)
[2023-01-12] MEDS ORDERED: LORATADINE 10 MG TAB PO SCH (09:00)
[2023-01-12] MEDS: CISATRACURIUM 2 MG/ML 5 ML VIAL IV ONE ×2 (09:03→10:17)
[2023-01-12] MEDS ORDERED: CISATRACURIUM 2 MG/ML 5 ML VIAL IV ONE (09:12)
--- NOTE | 2023-01-12 09:37 | OP ---
OPERATIVE REPORT DATE OF SERVICE : PROCEDURE PERFORMED: Left internal jugular triple-lumen catheter insertion. PREOPERATIVE DIAGNOSIS: Administration of fluids and pressors. POSTOPERATIVE DIAGNOSIS: Administration of fluids and pressors. CO-SURGEON: Dr. Jorgensen. There was informed consent and universal timeout. TRIPLE LUMEN CATHETER PLACEMENT: Indication: Hemodynamic monitoring/Intravenous access. A time-out was completed verifying correct patient, procedure, site, positioning, and implant(s) or special equipment if applicable. The patient was placed in a dependent position appropriate for triple lumen catheter placement based on the vein to be cannulated. The patient's left neck was prepped and draped in sterile fashion. 1% Lidocaine was used to anesthetize the surrounding skin area. A triple lumen 9F Cordis catheter was introduced into the left internal vein using Seldinger technique. The catheter was threaded smoothly over the guide wire and appropriate blood return was obtained. Each lumen of the catheter was evacuated of air and flushed with sterile saline. The catheter was then sutured in place to the skin and a sterile dressing applied. Perfusion to the extremity distal to the point of catheter insertion was checked and found to be adequate. We went via the posterior approach. There was good blood return. There was no immediate complication. The catheter was sutured in place. Sterile dressing was applied by the nurse. The chest x-ray will be ordered to check placement. Again, there were no immediate complications. The patient tolerated the procedure well. MMODL / IJN: [id number] /
--- NOTE | 2023-01-12 09:48 | XR ---
EXAMINATION TYPE: XR chest 1V portable DATE OF EXAM: 01/12/2023 CLINICAL HISTORY: Central line placement. TECHNIQUE: Single AP portable upright view of the chest is obtained. COMPARISON: Chest x-ray from earlier today FINDINGS: There is new left internal jugular central venous catheter terminating in SVC. No pneumoth orax is seen. Other findings stable. Stable endotracheal and orogastric tubes. Persistent large hiatal hernia. Persistent bibasilar opacities. Osseous structures are intact. IMPRESSION: As above
--- NOTE | 2023-01-12 10:17 | CA ---
Transthoracic Echo Report Name: Vinod Geller Age: 67 Gender: M : 1955 Exam Date: 01/12/2023 07:36 Exam Location: [place] [facility] Ht (in): 73 Wt (lb): 239 Ordering Physician: Олег Sanon MD Attending/Referring Phys: Roller Leveler Yamila Calero RDCS Procedure CPT: Indications: chf Cardiac Hx: Technical Quality: Technically difficult study Contrast 1: Total Dose (mL): Contrast 2: Total Dose (mL): MEASUREMENTS (Male / Female) Normal Values 2D ECHO LV Diastolic Diameter PLAX 3.8 cm 4.2 - 5.9 / 3.9 - 5.3 cm LV Systolic Diameter PLAX 2.8 cm IVS Diastolic Thickness 0.9 cm 0.6 - 1.0 / 0.6 - 0.9 cm LVPW Diastolic Thickness 1.3 cm 0.6 - 1.0 / 0.6 - 0.9 cm LV Relative Wall Thickness 0.6 RV Internal Dim ED PLAX 2.5 cm M-MODE Aortic Root Diameter MM 4.0 cm MV E Point Septal Separation 0.6 cm AV Cusp Separation MM 2.1 cm DOPPLER AV Peak Velocity 112.2 cm/s AV Peak Gradient 5.0 mmHg LVOT Peak Velocity 80.9 cm/s LVOT Peak Gradient 2.6 mmHg MV Area PHT 2.6 cm??? Mitral E Point Velocity 49.6 cm/s Mitral A Point Velocity 53.9 cm/s Mitral E to A Ratio 0.9 MV Deceleration Time 196.0 ms TR Peak Velocity 74.9 cm/s TR Peak Gradient 2.2 mmHg Right Atrial Pressure 8.0 mmHg Pulmonary Artery Systolic Pressu 10.2 mmHg Right Ventricular Systolic Press 10.2 mmHg PV Peak Velocity 56.0 cm/s PV Peak Gradient 1.3 mmHg FINDINGS Left Ventricle Left ventricular wall thickness normal. Left ventricular ejection fraction is estimated at 45-50 %. Grade 1 diastolic dysfunction. Right Ventricle Right ventricular dilatation. Right ventricular hypertrophy. Normal right ventricular global systolic function. Right ventricular systolic pressure within normal limits. Right Atrium Moderate right atrial dilatation. Left Atrium Left atrium not well visualized. Mitral Valve Mitral valve thickened. No mitral regurgitation. Aortic Valve Diffuse thickening (sclerosis) of the aortic valve cusps without reduced excursion. No aortic regurgitation. Tricuspid Valve Trace tricuspid regurgitation. Pulmonic Valve Mild pulmonic regurgitation. Pericardium No pericardial effusion. No pleural effusion. Aorta Mild aortic dilatation at the level of the sinuses of valsalva (root). Normal size of ascending aortic root. CONCLUSIONS Poor quality study LV size is normal there is mild global decrease in contractility noted. Endocardial margins are poorly seen. Echo contrast was not used. There is mild mitral annular calcification and aortic sclerosis. There is mild tricuspid regurgitation. Right-sided pressures are not well quantified. No pericardial effusion Previewed by: Dr. Bill Barajas MD (Electronically Signed) Final Date: 12 January 2023 10:16
[2023-01-12] MEDS: ASPIRIN 81 MG PO SCH (10:18)
[2023-01-12] MEDS: GABAPENTIN 100 MG CAP PO SCH ×3 (10:19→21:57)
[2023-01-12] MEDS: METOPROLOL TARTRATE 25 MG TAB PO SCH ×2 (10:19→21:57)
[2023-01-12] MEDS: NICOTINE 21MG/24HR PATCH TRANSDERM SCH (10:19)
[2023-01-12] MEDS: CHLORHEXIDINE GLUCONATE 15 ML CUP MUCOUS MEM SCH ×2 (10:19→21:57)
[2023-01-12] MEDS: PANTOPRAZOLE 40 MG TABLET PO SCH (10:19)
[2023-01-12] MEDS: APIXABAN 5 MG TAB PO SCH ×2 (10:19→21:57)
[2023-01-12] MEDS: FLECAINIDE 50 MG TAB PO SCH ×2 (10:19→21:49)
--- NOTE | 2023-01-12 10:21 | P.CRDCN ---
History of Present Illness Consult date: 01/12/23 History of present illness: The patient is a 67-year-old gentleman who we are asked to be seen in the intensive care unit for further cardiac evaluation. Currently the patient is intubated and he is on mechanical ventilation. The history was taken from the chart as well as from the nurse taking care of the patient. Apparently the patient presented to the emergency department with progressive dyspnea of unknown duration. He is known to have chronic obstructive pulmonary disease and also paroxysmal atrial fibrillation and cardiomyopathy. In the emergency depart ment he was evaluated and during his stay he did have an episode of cardiopulmonary arrest with PEA. The downtime was about 5 minutes. Subsequently the patient was intubated and he was admitted to the intensive care unit. Currently he is on norepinephrine. He is in normal sinus mechanism. He was on flecainide. No indication that he was experiencing any symptoms of chest pain or chest discomfort before but he presented with increasing shortness of breath. He is known to have severe COPD and he is on oxygen at 3 L. The chest x-ray showed findings consistent with chronic disease/COPD. No troponin was performed. The rest of his discomfort overall appeared unremarkable. The examination revealed that the patient was intubated on mechanical ventilation with diminished breathing sounds bilaterally but he does have regular rhythm with a systolic murmur at the right and left upper sternal border and he does have severe bilateral lower exam it is pitting edema noted Assessment Cardiopulmonary arrest was PEA Known severe COPD/chronic hypoxic respiratory failure Paroxysmal atrial fibrillation was receiving flecainide History of cardiomyopathy Multiple comorbid conditions Plan Continue hemodynamic support Rule out acute coronary event by obtaining serial cardiac enzymes Rule out flecainide proarrhythmia. Rule out ventricular tachycardia/ventricular fibrillation as well Continue oral anticoagulation Follow-up with the patient Past Medical History Past Medical History: Atrial Fibrillation, COPD, Eye Disorder, Hyperlipidemia, Hypertension, Osteoarthritis (OA), Thyroid Disorder Additional Past Medical History / Comment(s): Sober for 10 years, hiatal hernia, glaucoma left eye, possible stroke behind left eye per opthamologist. arthritis in back,cystic acne on back to see bottle booth attendant. History of Any Multi-Drug Resistant Organisms: None Reported Additional Past Surgical History / Comment(s): HYDROCELE surg. x2, hemorrhoidectomy, colonoscopy, cataract surgery Past Anesthesia/Blood Transfusion Reactions: No Reported Reaction Additional Past Anesthesia/Blood Transfusion Reaction / Comment(s): no blood transfusions Past Psychological History: Anxiety, Bipolar, Panic Disorder Smoking Status: Current every day smoker Past Alcohol Use History: None Reported Past Drug Use History: Marijuana - Past Family History Mother Family Medical History: Diabetes Mellitus Father Family Medical History: Coronary Artery Disease (CAD) Sister(s) Family Medical History: Coronary Artery Disease (CAD), Diabetes Mellitus, Hypertension Medications and Allergies Home Medications Medication Instructions Recorded Confirmed Type Latanoprost/Pf [Latanoprost 0.005% 1 drop LEFT EYE HS 08/18/20 01/11/23 History Eye Drop] Levothyroxine Sodium 125 mcg PO DAILY 08/18/20 01/11/23 History Albuterol Sulfate [Albuterol 1 puff PO RT-Q4H PRN 04/01/22 01/11/23 History Sulfate Hfa] Apixaban [Eliquis] 5 mg PO BID 04/01/22 01/11/23 History Aspirin EC [Ecotrin Low Dose] 81 mg PO DAILY 04/01/22 01/11/23 History Gabapentin [Neurontin] 200 mg PO TID 04/01/22 01/11/23 History Loratadine [Claritin] 10 mg PO DAILY 04/01/22 01/11/23 History Metoprolol Tartrate [Lopressor] 75 mg PO BID 30 Days #60 tab 12/22/22 01/11/23 Rx Albuterol Nebulized [Ventolin 3 ml INHALATION RT-Q6H 01/11/23 01/11/23 History Nebulized (Accuneb)] Flecainide [Tambocor] 50 mg PO BID 01/11/23 01/11/23 History Fluticasone/Vilanterol [Breo 1 puff INHALATION RT-DAILY 01/11/23 01/11/23 History Ellipta 200-25 Mcg Inhaler] Furosemide [Lasix] 80 mg PO DAILY 01/11/23 01/11/23 History Minocycline [Minocin] 50 mg PO Q12HR 01/11/23 01/11/23 History OLANZapine [ZyPREXA] 20 mg PO HS 01/11/23 01/11/23 History PARoxetine HCL [Paxil] 30 mg PO HS 01/11/23 01/11/23 History Pantoprazole Sodium [Protonix] 40 mg PO DAILY 01/11/23 01/11/23 History Tiotropium [place] [Spiriva] 1 puff INHALATION RT-DAILY 01/11/23 01/11/23 History Allergies Allergy/AdvReac Type Severity Reaction Status Date / Time No Known Allergies Allergy Verified 01/11/23 14:49 Physical Exam Vitals: Vital Signs Temp Pulse Resp BP Pulse Ox FiO2 01/12/23 09:45 65 24 105/70 98 70 01/12/23 09:30 62 24 114/79 97 70 01/12/23 09:15 74 24 105/72 97 70 01/12/23 09:12 66 01/12/23 09:00 65 12 98/70 99 70 01/12/23 08:52 64 01/12/23 08:45 64 21 91/62 98 70 01/12/23 08:42 66 01/12/23 08:34 70 01/12/23 08:33 65 01/12/23 08:30 67 17 91/64 99 80 01/12/23 08:20 67 01/12/23 08:15 61 19 89/63 98 80 01/12/23 08:07 80 01/12/23 08:00 97.5 F L 64 19 90/63 99 80 01/12/23 07:45 66 24 90/60 99 01/12/23 07:30 66 24 88/64 99 01/12/23 07:15 66 24 86/61 99 01/12/23 07:00 68 24 87/63 99 80 01/12/23 06:00 74 24 89/64 99 80 01/12/23 05:30 66 24 96/66 99 01/12/23 05:00 70 24 86/61 98 80 01/12/23 04:30 66 24 85/58 98 01/12/23 04:00 98.1 F 65 24 83/57 98 80 01/12/23 03:30 64 24 85/60 98 01/12/23 03:15 80 01/12/23 03:12 66 01/12/23 03:00 65 24 89/57 98 80 01/12/23 02:30 74 24 93/69 96 01/12/23 02:00 71 24 94/65 92 L 80 01/12/23 01:30 72 19 80/57 93 L 01/12/23 01:00 73 24 88/61 93 L 80 01/12/23 00:34 76 01/12/23 00:30 78 24 80/56 76 L 01/12/23 00:23 71 01/12/23 00:00 97.6 F 72 24 115/88 95 80 01/11/23 23:40 80 02 23:30 71 24 78/57 95 01/11/23 23:00 97.4 F L 79 24 96/67 92 L 80 01/11/23 22:41 86 24 01/11/23 22:10 94/67 01/11/23 22:00 74 24 98/71 96 01/11/23 21:50 72 24 98/71 96 01/11/23 21:40 75 24 126/92 96 01/11/23 21:30 75 16 83/68 96 01/11/23 21:20 70 0 L 83/68 95 01/11/23 21:10 69 0 L 86/64 94 L 01/11/23 21:00 70 0 L 85/64 95 01/11/23 20:50 70 0 L 85/64 94 L 01/11/23 20:40 68 0 L 86/63 93 L 01/11/23 20:30 67 0 L 89/67 93 L 01/11/23 20:20 68 0 L 89/67 93 L 01/11/23 20:10 65 8 L 83/68 94 L 01/11/23 20:07 70 01/11/23 20:00 68 9 L 86/67 94 L 01/11/23 19:52 72 01/11/23 19:50 69 24 107/79 97 01/11/23 19:40 70 14 97/74 95 01/11/23 19:37 70 80 01/11/23 19:30 70 19 100/78 95 01/11/23 19:20 71 14 99/77 95 01/11/23 19:10 71 6 L 108/78 95 01/11/23 19:00 73 16 104/81 96 01/11/23 18:50 76 18 111/85 98 01/11/23 18:40 78 19 107/79 100 01/11/23 18:35 80 01/11/23 18:30 80 16 117/87 100 01/11/23 18:20 80 19 126/94 100 01/11/23 18:06 16 01/11/23 18:00 82 18 133/95 100 01/11/23 17:59 100 01/11/23 17:00 89 24 120/88 97 01/11/23 16:00 89 18 125/83 97 01/11/23 15:40 114/69 01/11/23 15:30 81 18 111/81 01/11/23 15:11 77 01/11/23 15:00 67 111/81 01/11/23 14:05 74 24 119/94 97 01/11/23 13:05 79 24 132/86 96 01/11/23 12:03 98 F 80 20 138/97 89 L Intake and Output 01/11/23 01/12/23 01/12/23 22:59 06:59 14:59 Intake Total 2152.946 325 Output Total 15 265 150 Balance -15 1887.946 175 Intake: IV 2000 225 Lactated Ringers 1,000 ml 225 @ 75 mls/hr IV .[id number] [facility] Rx#:[id number] Sodium Chloride 0.9% 1, 2000 000 ml @ 999 mls/hr IV . Q1H1M [facility] Rx#:[id number] Intake, IV Titration 152.946 100 Amount Norepinephrine 4 mg In 29.738 Sodium Chloride 0.9% 250 ml @ 0.03 MCG/KG/MIN 12. 391 mls/hr IV .[id number] [facility] Rx#:[id number] propofoL 1,000 mg In 123.208 100 Empty Bag 1 bag @ 15 MCG/ KG/MIN 9.757 mls/hr IV . [id number] [facility] Rx#:[id number] Output: Urine 15 265 150 Other: Voiding Method Indwelling Catheter Weight 108.409 kg ABP, PAP, CO, CI - Last 8 Hours Arterial Blood Pressure 99/58 Arterial Blood Pressure 96/59 Results 01/12/23 05:21 01/12/23 05:21 Cardiac Enzymes 01/11/23 01/11/23 01/11/23 Range/Units 12:26 12:26 17:43 AST 71 H 79 H (17-59) U/L Troponin I 0.015 (0.000-0.034) ng/mL 01/11/23 Range/Units 17:43 AST (17-59) U/L Troponin I 0.017 (0.000-0.034) ng/mL Coagulation 01/11/23 Range/Units 12:26 PT 13.7 H (9.0-12.0) sec APTT 25.6 (22.0-30.0) sec CBC 01/11/23 01/11/23 01/11/23 Range/Units 12:26 17:43 22:30 WBC 8.6 10.6 16.2 H (3.8-10.6) k/uL RBC 5.15 5.33 5.60 (4.30-5.90) m/uL Hgb 16.0 16.4 17.2 (13.0-17.5) gm/dL Hct 48.5 51.4 53.9 H (39.0-53.0) % Plt Count 121 L 153 143 L (150-450) k/uL 01/12/23 Range/Units 05:21 WBC 13.9 H (3.8-10.6) k/uL RBC 5.17 (4.30-5.90) m/uL Hgb 16.2 (13.0-17.5) gm/dL Hct 50.1 (39.0-53.0) % Plt Count 123 L (150-450) k/uL Comprehensive Metabolic Panel 01/11/23 01/11/23 01/11/23 Range/Units 12:26 17:43 22:30 Sodium 132 L 137 137 (137-145) mmol/L Potassium 3.5 3.1 L 3.5 (3.5-5.1) mmol/L Chloride 90 L 89 L 92 L (98-107) mmol/L Carbon Dioxide 36 H 38 H 38 H (22-30) mmol/L BUN 25 H 24 H 23 H (9-20) mg/dL Creatinine 1.56 H 1.42 H 1.36 H (0.66-1.25) mg/dL Glucose 109 H 211 H 130 H (74-99) mg/dL Calcium 8.1 L 7.7 L 7.8 L (8.4-10.2) mg/dL AST 71 H 79 H (17-59) U/L ALT 68 H 65 H (4-49) U/L Alkaline Phosphatase 111 114 (38-126) U/L Total Protein 5.7 L 5.5 L (6.3-8.2) g/dL Albumin 3.1 L 3.0 L (3.5-5.0) g/dL 01/12/23 Range/Units 05:21 Sodium 138 (137-145) mmol/L Potassium 3.7 (3.5-5.1) mmol/L Chloride 95 L (98-107) mmol/L Carbon Dioxide 38 H (22-30) mmol/L BUN 20 (9-20) mg/dL Creatinine 1.19 (0.66-1.25) mg/dL Glucose 136 H (74-99) mg/dL Calcium 7.8 L (8.4-10.2) mg/dL AST (17-59) U/L ALT (4-49) U/L Alkaline Phosphatase (38-126) U/L Total Protein (6.3-8.2) g/dL Albumin (3.5-5.0) g/dL Current Medications Generic Name Dose Route Start Last Admin Trade Name Freq PRN Reason Stop Dose Admin Acetaminophen 650 mg 01/11/23 15:24 Acetaminophen Tab 325 Mg Tab PO Q4HR PRN Mild Pain or Fever > 100.5 Albuterol Sulfate 2.5 mg 01/11/23 20:00 01/12/23 08:18 Albuterol Nebulized 2.5 Mg/3 Ml INHALATION 2.5 mg RT-Q4H [facility] Administration Apixaban 5 mg 01/11/23 21:00 01/11/23 22:25 Apixaban 5 Mg Tab PO Not Given BID [facility] Protocol Aspirin 81 mg 01/12/23 09:00 Aspirin 81 Mg PO DAILY [facility] Budesonide 1 mg 01/11/23 20:00 01/12/23 08:18 Budesonide 1 Mg/2 Ml Nebu INHALATION 1 mg RT-BID [facility] Administration Chlorhexidine Gluconate 15 ml 01/11/23 21:00 01/11/23 22:25 Chlorhexidine Gluconate 15 Ml Cup MUCOUS MEM Not Given BID [facility] Flecainide Acetate 50 mg 01/11/23 21:00 01/11/23 22:26 Flecainide 50 Mg Tab PO Not Given BID [facility] Formoterol Fumarate 20 mcg 01/11/23 20:00 01/12/23 08:18 Formoterol Fumarate 20 Mcg/2 Ml Nebu INHALATION 20 mcg RT-BID [facility] Administration Gabapentin 200 mg 01/11/23 16:00 01/11/23 22:34 Gabapentin 100 Mg Cap PO Not Given TID [facility] Hydromorphone HCl 1 mg 01/11/23 20:00 01/12/23 05:23 Hydromorphone 1 Mg/Ml 1 Ml Syringe IVP 1 mg Q4HR [facility] Administration Propofol 1,000 mg/ IV Solution 100 mls @ 9.757 mls/hr 01/11/23 21:00 01/12/23 10:05 IV 40 mcg/kg/min .[id number] [facility] 26.018 mls/hr Administration Protocol 15 MCG/KG/MIN Norepinephrine Bitartrate 4 mg 254 mls @ 12.391 mls/hr 01/11/23 23:30 01/12/23 05:06 / Sodium Chloride IV 0.04 mcg/kg/min .[id number] [facility] 16.522 mls/hr Titration Protocol 0.03 MCG/KG/MIN Lactated Ringer's 1,000 mls @ 75 mls/hr 01/12/23 08:30 01/12/23 08:30 Lactated Ringers IV 75 mls/hr .[id number] [facility] Administration Ipratropium [place] 0.5 mg 01/12/23 08:45 01/12/23 08:51 Ipratropium 0.5 Mg/2.5 Ml Nebu INHALATION 0.5 mg RT-Q4H [facility] Administration Latanoprost 1 drops 01/11/23 21:00 01/11/23 22:26 Latanoprost 0.005% Ophth Drops 2.5 Ml Btl LEFT EYE Not Given HS [facility] Levothyroxine Sodium 125 mcg 01/12/23 06:30 01/12/23 06:53 Levothyroxine 125 Mcg Tab PO 125 mcg DAILY@0630 [facility] Administration Methylprednisolone Sodium Succinate 60 mg 01/11/23 18:00 01/12/23 05:23 Methylprednisolone Sod Succi 125 Mg/2 Ml Vial IV 60 mg Q6HR [facility] Administration Metoprolol Tartrate 75 mg 01/11/23 21:00 01/11/23 22:26 Metoprolol Tartrate 25 Mg Tab PO Not Given BID [facility] Miscellaneous Information 1 each 01/12/23 06:14 Potassium Replacement Protocol 1 Each Misc MISCELLANE DAILY PRN Per Protocol Protocol Naloxone HCl 0.2 mg 01/11/23 15:24 Naloxone 0.4 Mg/Ml 1 Ml Vial IVP Q2M PRN Opioid Reversal Nicotine 1 patch 01/11/23 19:00 01/11/23 19:13 Nicotine 21mg/24hr Patch TRANSDERM Not Given DAILY [facility] Olanzapine 20 mg 01/11/23 21:00 01/11/23 22:26 Olanzapine 10 Mg Tab PO Not Given HS [facility] Pantoprazole Sodium 40 mg 01/12/23 09:00 Pantoprazole 40 Mg Tablet PO DAILY [facility] Intake and Output 01/11/23 01/12/23 01/12/23 22:59 06:59 14:59 Intake Total 2152.946 325 Output Total 15 265 150 Balance -15 1887.946 175 Intake: IV 2000 225 Lactated Ringers 1,000 ml 225 @ 75 mls/hr IV .[id number] [facility] Rx#:[id number] Sodium Chloride 0.9% 1, 2000 000 ml @ 999 mls/hr IV . Q1H1M [facility] Rx#:[id number] Intake, IV Titration 152.946 100 Amount Norepinephrine 4 mg In 29.738 Sodium Chloride 0.9% 250 ml @ 0.03 MCG/KG/MIN 12. 391 mls/hr IV .[id number] [facility] Rx#:[id number] propofoL 1,000 mg In 123.208 100 Empty Bag 1 bag @ 15 MCG/ KG/MIN 9.757 mls/hr IV . [id number] [facility] Rx#:[id number] Output: Urine 15 265 150 Other: Voiding Method Indwelling Catheter Weight 108.409 kg 01/12/23 05:21 01/12/23 05:21
--- NOTE | 2023-01-12 11:23 | P.PN ---
Progress Note - Text Progress Note Date: 01/12/23 Chief Complaint: Shortness of breath, chest pain This is a 67-year-old patient who follows with Dr. Alvin Villela. Chronic stable medical conditions include hyperlipidemia, hypothyroid, bipolar, atrial fibrillation. Patient is a smoker. COPD, CHF, bipolar, hiatal hernia Patient presented to the ER, brought in by the family because of shortness of breath and chest pain. In the last 3 weeks apparently patient is followed about 3 times. No fever no chills. Some palpitations. Increasing lower extremity edema. Nonproductive cough. Late in the afternoon patient was found to be in PEA. Code team was called. Patient did require epinephrine. intubated. FiO2 100 and PEEP of 5. Patient have a broad complex tachycardia. Reproduction Machine Loader Dr. Steve was informed. Admitted with acute COPD exacerbation, acute CHF exacerbation, acute hypoxic hypercapnic respiratory failure. Intubated. 01/12/2023: ICU. Drips include IV propofol, Levophed. Patient sedated. Telemetry shows sinus rhythm. FiO2 70 to PEEP of 5. Patient seen by health care legal assistant Dr. Valdes. IV Lasix has been discontinued. IV fluids. Active Medications Acetaminophen (Acetaminophen Tab 325 Mg Tab) 650 mg PO Q4HR PRN PRN Reason: Mild Pain or Fever > 100.5 Albuterol Sulfate (Albuterol Nebulized 2.5 Mg/3 Ml) 2.5 mg INHALATION RT-Q4H [facility] Last Admin: 01/12/23 08:18 Dose: 2.5 mg Apixaban (Apixaban 5 Mg Tab) 5 mg PO BID [facility]; Protocol Last Admin: 01/12/23 10:19 Dose: 5 mg Aspirin (Aspirin 81 Mg) 81 mg PO DAILY [facility] Last Admin: 01/12/23 10:18 Dose: 81 mg Budesonide (Budesonide 1 Mg/2 Ml Nebu) 1 mg INHALATION RT-BID [facility] Last Admin: 01/12/23 08:18 Dose: 1 mg Chlorhexidine Gluconate (Chlorhexidine Gluconate 15 Ml Cup) 15 ml MUCOUS MEM BID [facility] Last Admin: 01/12/23 10:19 Dose: 15 ml Flecainide Acetate (Flecainide 50 Mg Tab) 50 mg PO BID [facility] Last Admin: 01/12/23 10:19 Dose: 50 mg Formoterol Fumarate (Formoterol Fumarate 20 Mcg/2 Ml Nebu) 20 mcg INHALATION RT-BID [facility] Last Admin: 01/12/23 08:18 Dose: 20 mcg Gabapentin (Gabapentin 100 Mg Cap) 200 mg PO TID [facility] Last Admin: 01/12/23 10:19 Dose: 200 mg Hydromorphone HCl (Hydromorphone 1 Mg/Ml 1 Ml Syringe) 1 mg IVP Q4HR [facility] Last Admin: 01/12/23 10:30 Dose: Not Given Propofol 1,000 mg/ IV Solution 100 mls @ 9.757 mls/hr IV .[id number] [facility]; Protocol Last Admin: 01/12/23 10:05 Dose: 40 mcg/kg/min, 26.018 mls/hr Norepinephrine Bitartrate 4 mg (/ Sodium Chloride) 254 mls @ 12.391 mls/hr IV .[id number] [facility]; Protocol Last Titration: 01/12/23 05:06 Dose: 0.04 mcg/kg/min, 16.522 mls/hr Lactated Ringer's (Lactated Ringers) 1,000 mls @ 75 mls/hr IV .[id number] [facility] Last Admin: 01/12/23 08:30 Dose: 75 mls/hr Ipratropium [place] (Ipratropium 0.5 Mg/2.5 Ml Nebu) 0.5 mg INHALATION RT-Q4H [facility] Last Admin: 01/12/23 08:51 Dose: 0.5 mg Latanoprost (Latanoprost 0.005% Ophth Drops 2.5 Ml Btl) 1 drops LEFT EYE HS [facility] Last Admin: 01/11/23 22:26 Dose: Not Given Levothyroxine Sodium (Levothyroxine 125 Mcg Tab) 125 mcg PO DAILY@0630 [facility] Last Admin: 01/12/23 06:53 Dose: 125 mcg Methylprednisolone Sodium Succinate (Methylprednisolone Sod Succi 125 Mg/2 Ml Vial) 60 mg IV Q6HR [facility] Last Admin: 01/12/23 05:23 Dose: 60 mg Metoprolol Tartrate (Metoprolol Tartrate 25 Mg Tab) 75 mg PO BID [facility] Last Admin: 01/12/23 10:19 Dose: Not Given Miscellaneous Information (Potassium Replacement Protocol 1 Each Misc) 1 each MISCELLANE DAILY PRN; Protocol PRN Reason: Per Protocol Naloxone HCl (Naloxone 0.4 Mg/Ml 1 Ml Vial) 0.2 mg IVP Q2M PRN PRN Reason: Opioid Reversal Nicotine (Nicotine 21mg/24hr Patch) 1 patch TRANSDERM DAILY [facility] Last Admin: 01/12/23 10:19 Dose: 1 patch Olanzapine (Olanzapine 10 Mg Tab) 20 mg PO HS [facility] Last Admin: 01/11/23 22:26 Dose: Not Given Pantoprazole Sodium (Pantoprazole 40 Mg Tablet) 40 mg PO DAILY [facility] Last Admin: 01/12/23 10:19 Dose: 40 mg Past medical history to include: COPD, hyperlipidemia, hypothyroid, bipolar, atrial fibrillation, bipolar, CHF, he had hernia Social history: Lives with sister Marifer, smokes a pack a day for many years, no alcohol Physical examination: VITAL SIGNS: 97.5, 74, 24, 10 5 x 32, 97% on the ventilator GENERAL: , laying in bed, intubated EYES: Pupils equal. Conjunctiva normal. HEENT: External appearance of nose and ears normal, oral cavity grossly normal. Endotracheal tube NECK: JVD is able to assess; masses not palpable. HEART: First and second heart sounds are normal; edema present LUNGS: Respiratory rate increased; decreased breath sounds ABDOMEN: Soft, nontender, liver spleen not palpable, no masses palpable. PSYCH: Sedated MUSCULOSKELETAL:No Clubbing/cyanosis;muscles-grossly intact. Evidence of OA INVESTIGATIONS, reviewed in the clinical context: 2-D echocardiogram: EF 45-50%. Right ventricle dilatation, right ventricular hypertrophy 01/12/2023: White count 13.9 hemoglobin 16.2 platelets 123 potassium 3.7 creatinine 1.19 cortisol 22 TSH 0.548 White count 10.6 hemoglobin 16.4 platelets 153 potassium 3.1 BUN 24 creatinine 1.4 to AST 79 ALT 65 Procalcitonin 0.08 ABG: PH 7.18 pCO2 102 pO2 153 EKG tracing personally reviewed by me-normal sinus rhythm. Intraventricular block. Poor R-wave progression. Chest x-ray film personally reviewed by me-large hiatal hernia. Cardiomegaly. Venous prominence. Assessment and plan: -Acute hypoxic and hypercapnic respiratory failure secondary to COPD exacerbation and CHF exacerbation Patient on ventilator assist. 70% FiO2 -Paroxysmal atrial fibrillation flutter, currently sinus rhythm Telemetry. Eliquis 5 mg twice a day. Lopressor 75 mg twice a day flecainide 50 mg twice a day -Acute COPD exacerbation in a current smoker Albuterol 4 times a day.. IV Solu-Medrol. Nebulized Perforomist and Pulmicort, -Acute on Chronic congestive heart failure from systolic dysfunction EF 45-50%- Received IV Lasix -Hypothyroid Levothyroxine 125 g a day -Essential hypertension Currently blood pressure low -Cardiogenic shock: Slow to respond Patient on levo fed -Chronic nicotine dependence, cigarette smoker Nicotine patch -Bipolar disorder Zyprexa 20 mg daily at bedtime. -Full code Patient off Lasix. IV fluids. Levo fed. Other medications to continue. Bronchodilators. Steroids. Follow with cardiology, health care legal assistant
--- NOTE | 2023-01-12 11:42 | P.CNPUL ---
History of Present Illness Consult date: 01/12/23 Requesting physician: Олег Sanon Reason for consult: other (Critical care/ventilator management) Chief complaint: Shortness of breath, weakness, falls History of present illness: This is 67-year-old male patient with a known history of atrial fibrillation anticoagulated with Eliquis, chronic obstructive pulmonary disease, oxygen dependent respiratory failure, hyperlipidemia, hypertension, hypothyroidism, bipolar disorder, chronic and ongoing tobacco dependence, marijuana use. He was brought into the emergency room yesterday by family around noontime for increasing shortness of breath and chest wall pain. The patient had been falling approximately 3 times in the past 3 weeks. He was quite short of breath and dyspneic with exertion. He was originally being admitted to the regular medical floor when prior to his transfer from the emergency department he developed a cardiac arrest requiring approximately 5 minutes of CPR including 3 A of epinephrine and 2 units Amps of bicarb. He was also having some nonsustained VT and was given amiodarone bolus. He was intubated and jones sferred to the intensive care unit. He is seen today in consultation. He is currently on the mechanical ventilator in assist control mode at a rate of 24, tidal out of 450, FiO2 80% and a PEEP of 5. Morning blood gases revealed a PaO2 of 97, pCO2 67, pH 7.35 on the 80% FiO2. His x-ray reveals persistent large hiatal hernia. Persistent bibasilar opacities. Echocardiogram revealed left ventricular systolic function with ejection fraction 45-50%. Sputum culture pending. White count 13.9. Hemoglobin 16.2. Platelets 123. Sodium 138. Potassium 3.7. Bicarb 38. BUN 20. Creatinine 1.19. Glucose 136. He is sedated with propofol at 40 mcg/kg/m. Requiring norepinephrine at 4.3 mcg/m. He's initiated on bronchodilators, IV Solu-Medrol. Anticoagulated with Eliquis. NicoDerm patch in place. Review of Systems ROS unobtainable: due to endotracheal tube Past Medical History Past Medical History: Atrial Fibrillation, COPD, Eye Disorder, Hyperlipidemia, Hypertension, Osteoarthritis (OA), Thyroid Disorder Additional Past Medical History / Comment(s): Sober for 10 years, hiatal hernia, glaucoma left eye, possible stroke behind left eye per opthamologist. arthritis in back,cystic acne on back to see office bookkeeper. History of Any Multi-Drug Resistant Organisms: None Reported Additional Past Surgical History / Comment(s): HYDROCELE surg. x2, hemorrhoidectomy, colonoscopy, cataract surgery Past Anesthesia/Blood Transfusion Reactions: No Reported Reaction Additional Past Anesthesia/Blood Transfusion Reaction / Comment(s): no blood transfusions Past Psychological History: Anxiety, Bipolar, Panic Disorder Smoking Status: Current every day smoker Past Alcohol Use History: None Reported Past Drug Use History: Marijuana - Past Family History Mother Family Medical History: Diabetes Mellitus Father Family Medical History: Coronary Artery Disease (CAD) Sister(s) Family Medical History: Coronary Artery Disease (CAD), Diabetes Mellitus, Hypertension Medications and Allergies Home Medications Medication Instructions Recorded Confirmed Type Latanoprost/Pf [Latanoprost 0.005% 1 drop LEFT EYE HS 08/18/20 01/11/23 History Eye Drop] Levothyroxine Sodium 125 mcg PO DAILY 08/18/20 01/11/23 History Albuterol Sulfate [Albuterol 1 puff PO RT-Q4H PRN 04/01/22 01/11/23 History Sulfate Hfa] Apixaban [Eliquis] 5 mg PO BID 04/01/22 01/11/23 History Aspirin EC [Ecotrin Low Dose] 81 mg PO DAILY 04/01/22 01/11/23 History Gabapentin [Neurontin] 200 mg PO TID 04/01/22 01/11/23 History Loratadine [Claritin] 10 mg PO DAILY 04/01/22 01/11/23 History Metoprolol Tartrate [Lopressor] 75 mg PO BID 30 Days #60 tab 12/22/22 01/11/23 Rx Albuterol Nebulized [Ventolin 3 ml INHALATION RT-Q6H 01/11/23 01/11/23 History Nebulized (Accuneb)] Flecainide [Tambocor] 50 mg PO BID 01/11/23 01/11/23 History Fluticasone/Vilanterol [Breo 1 puff INHALATION RT-DAILY 01/11/23 01/11/23 History Ellipta 200-25 Mcg Inhaler] Furosemide [Lasix] 80 mg PO DAILY 01/11/23 01/11/23 History Minocycline [Minocin] 50 mg PO Q12HR 01/11/23 01/11/23 History OLANZapine [ZyPREXA] 20 mg PO HS 01/11/23 01/11/23 History PARoxetine HCL [Paxil] 30 mg PO HS 01/11/23 01/11/23 History Pantoprazole Sodium [Protonix] 40 mg PO DAILY 01/11/23 01/11/23 History Tiotropium [place] [Spiriva] 1 puff INHALATION RT-DAILY 01/11/23 01/11/23 History Allergies Allergy/AdvReac Type Severity Reaction Status Date / Time No Known Allergies Allergy Verified 01/11/23 14:49 Physical Exam Vitals: Vital Signs Temp Pulse Resp BP Pulse Ox FiO2 01/12/23 10:30 61 17 105/69 95 01/12/23 10:15 65 16 108/73 94 L 01/12/23 10:00 64 24 107/79 95 01/12/23 09:45 65 24 105/70 98 70 01/12/23 09:30 62 24 114/79 97 70 01/12/23 09:15 74 24 105/72 97 70 01/12/23 09:12 66 01/12/23 09:00 65 12 98/70 99 70 01/12/23 08:52 64 01/12/23 08:45 64 21 91/62 98 70 01/12/23 08:42 66 01/12/23 08:34 70 01/12/23 08:33 65 01/12/23 08:30 67 17 91/64 99 80 01/12/23 08:20 67 01/12/23 08:15 61 19 89/63 98 80 01/12/23 08:07 80 01/12/23 08:00 97.5 F L 64 24 90/63 99 80 01/12/23 07:45 66 24 90/60 99 01/12/23 07:30 66 24 88/64 99 01/12/23 07:15 66 24 86/61 99 01/12/23 07:00 68 24 87/63 99 80 01/12/23 06:00 74 24 89/64 99 80 01/12/23 05:30 66 24 96/66 99 01/12/23 05:00 70 24 86/61 98 80 01/12/23 04:30 66 24 85/58 98 01/12/23 04:00 98.1 F 65 24 83/57 98 80 01/12/23 03:30 64 24 85/60 98 01/12/23 03:15 80 01/12/23 03:12 66 01/12/23 03:00 65 24 89/57 98 80 01/12/23 02:30 74 24 93/69 96 01/12/23 02:00 71 24 94/65 92 L 80 01/12/23 01:30 72 19 80/57 93 L 01/12/23 01:00 73 24 88/61 93 L 80 01/12/23 00:34 76 01/12/23 00:30 78 24 80/56 76 L 01/12/23 00:23 71 01/12/23 00:00 97.6 F 72 24 115/88 95 80 01/11/23 23:40 80 01/11/23 23:30 71 24 78/57 95 01/11/23 23:00 97.4 F L 79 24 96/67 92 L 80 01/11/23 22:41 86 24 01/11/23 22:10 94/67 01/11/23 22:00 74 24 98/71 96 01/11/23 21:50 72 24 98/71 96 01/11/23 21:40 75 24 126/92 96 01/11/23 21:30 75 16 83/68 96 01/11/23 21:20 70 0 L 83/68 95 01/11/23 21:10 69 0 L 86/64 94 L 01/11/23 21:00 70 0 L 85/64 95 01/11/23 20:50 70 0 L 85/64 94 L 01/11/23 20:40 68 0 L 86/63 93 L 01/11/23 20:30 67 0 L 89/67 93 L 01/11/23 20:20 68 0 L 89/67 93 L 01/11/23 20:10 65 8 L 83/68 94 L 01/11/23 20:07 70 01/11/23 20:00 68 9 L 86/67 94 L 01/11/23 19:52 72 01/11/23 19:50 69 24 107/79 97 01/11/23 19:40 70 14 97/74 95 01/11/23 19:37 70 80 01/11/23 19:30 70 19 100/78 95 01/11/23 19:20 71 14 99/77 95 01/11/23 19:10 71 6 L 108/78 95 01/11/23 19:00 73 16 104/81 96 01/11/23 18:50 76 18 111/85 98 01/11/23 18:40 78 19 107/79 100 01/11/23 18:35 80 01/11/23 18:30 80 16 117/87 100 01/11/23 18:20 80 19 126/94 100 01/11/23 18:06 16 01/11/23 18:00 82 18 133/95 100 01/11/23 17:59 100 01/11/23 17:00 89 24 120/88 97 01/11/23 16:00 89 18 125/83 97 01/11/23 15:40 114/69 01/11/23 15:30 81 18 111/81 01/11/23 15:11 77 01/11/23 15:00 67 111/81 01/11/23 14:05 74 24 119/94 97 01/11/23 13:05 79 24 132/86 96 01/11/23 12:03 98 F 80 20 138/97 89 L Intake and Output 01/11/23 01/12/23 01/12/23 22:59 06:59 14:59 Intake Total 2152.946 355 Output Total 15 265 150 Balance -15 1887.946 205 Intake: IV 2000 255 Invasive Line 3 30 Lactated Ringers 1,000 ml 225 @ 75 mls/hr IV .[id number] [facility] Rx#:[id number] Sodium Chloride 0.9% 1, 2000 000 ml @ 999 mls/hr IV . Q1H1M ONE Rx#:[id number] Intake, IV Titration 152.946 100 Amount Norepinephrine 4 mg In 29.738 Sodium Chloride 0.9% 250 ml @ 0.03 MCG/KG/MIN 12. 391 mls/hr IV .[id number] [facility] Rx#:[id number] propofoL 1,000 mg In 123.208 100 Empty Bag 1 bag @ 15 MCG/ KG/MIN 9.757 mls/hr IV . [id number] [facility] Rx#:[id number] Output: Urine 15 265 150 Other: Voiding Method Indwelling Catheter Indwelling Catheter Weight 108.409 kg ABP, PAP, CO, CI - Last 8 Hours Arterial Blood Pressure 104/66 Arterial Blood Pressure 95/56 Arterial Blood Pressure 100/58 Arterial Blood Pressure 99/58 Arterial Blood Pressure 96/59 GENERAL EXAM: Intubated, sedated 67-year-old male patient, comfortable in no apparent distress. HEAD: Normocephalic. EYES: Normal reaction of pupils, equal size. NOSE: Clear with pink turbinates. THROAT: Oral endotracheal and gastric tube secured in place. No erythema or exudates. NECK: No masses, no JVD. CHEST: No chest wall deformity. LUNGS: Equal air entry with few scattered rhonchi. CVS: S1 and S2 normal with no audible murmur, regular rhythm. ABDOMEN: No hepatosplenomegaly, normal bowel sounds, no guarding or rigidity. SPINE: No scoliosis or deformity SKIN: No rashes CENTRAL NERVOUS SYSTEM: Sedated, tone is normal in all 4 extremities. EXTREMITIES: There is no peripheral edema. No clubbing, no cyanosis. Peripheral pulses are intact. Results - Laboratory Findings CBC and BMP: 01/12/23 05:21 01/12/23 05:21 ABG ABG pH 7.35 (7.35-7.45) 01/12/23 06:22 ABG pCO2 67 mmHg (35-45) H 01/12/23 06:22 ABG pO2 97 mmHg (83-108) 01/12/23 06:22 ABG O2 Saturation 96.3 % (94-97) 01/12/23 06:22 PT/INR, D-dimer PT 13.7 sec (9.0-12.0) H 01/11/23 12:26 INR 1.4 (<1.2) H 01/11/23 12:26 D-Dimer 0.41 mg/L FEU (<0.60) 01/11/23 12:26 Abnormal lab findings: Abnormal Labs 01/11/23 01/11/23 01/11/23 12:26 12:26 12:26 WBC Hct Plt Count 121 L Neutrophils # Lymphocytes # Monocytes # PT 13.7 H INR 1.4 H ABG pH ABG pCO2 ABG pO2 ABG HCO3 ABG Total CO2 ABG O2 Saturation Sodium 132 L Potassium Chloride 90 L Carbon Dioxide 36 H BUN 25 H Creatinine 1.56 H Glucose 109 H POC Glucose (mg/dL) Plasma Lactic Acid Rios Calcium 8.1 L AST 71 H ALT 68 H Total Protein 5.7 L Albumin 3.1 L 01/11/23 01/11/23 01/11/23 17:28 17:43 17:43 WBC Hct Plt Count Neutrophils # Lymphocytes # Monocytes # PT INR ABG pH ABG pCO2 ABG pO2 ABG HCO3 ABG Total CO2 ABG O2 Saturation Sodium Potassium 3.1 L Chloride 89 L Carbon Dioxide 38 H BUN 24 H Creatinine 1.42 H Glucose 211 H POC Glucose (mg/dL) 140 H Plasma Lactic Acid Rios 3.9 H* Calcium 7.7 L AST 79 H ALT 65 H Total Protein 5.5 L Albumin 3.0 L 01/11/23 01/11/23 01/11/23 18:23 21:17 22:19 WBC Hct Plt Count Neutrophils # Lymphocytes # Monocytes # PT INR ABG pH 7.18 L* ABG pCO2 102 H* ABG pO2 153 H ABG HCO3 38 H ABG Total CO2 42 H ABG O2 Saturation 97.7 H Sodium Potassium Chloride Carbon Dioxide BUN Creatinine Glucose POC Glucose (mg/dL) 136 H Plasma Lactic Acid Rios 2.2 H* Calcium AST ALT Total Protein Albumin 01/11/23 01/11/23 01/11/23 22:30 22:30 22:47 WBC 16.2 H Hct 53.9 H Plt Count 143 L Neutrophils # 14.4 H Lymphocytes # 0.4 L Monocytes # 1.1 H PT INR ABG pH ABG pCO2 71 H* ABG pO2 67 L ABG HCO3 39 H ABG Total CO2 41 H ABG O2 Saturation 92.5 L Sodium Potassium Chloride 92 L Carbon Dioxide 38 H BUN 23 H Creatinine 1.36 H Glucose 130 H POC Glucose (mg/dL) Plasma Lactic Acid Rios Calcium 7.8 L AST ALT Total Protein Albumin 01/11/23 01/12/23 01/12/23 23:42 05:21 05:21 WBC 13.9 H Hct Plt Count 123 L Neutrophils # 12.9 H Lymphocytes # 0.5 L Monocytes # PT INR ABG pH ABG pCO2 ABG pO2 ABG HCO3 ABG Total CO2 ABG O2 Saturation Sodium Potassium Chloride 95 L Carbon Dioxide 38 H BUN Creatinine Glucose 136 H POC Glucose (mg/dL) 130 H Plasma Lactic Acid Rios Calcium 7.8 L AST ALT Total Protein Albumin 01/12/23 01/12/23 05:55 06:22 WBC Hct Plt Count Neutrophils # Lymphocytes # Monocytes # PT INR ABG pH ABG pCO2 67 H ABG pO2 ABG HCO3 37 H ABG Total CO2 39 H ABG O2 Saturation Sodium Potassium Chloride Carbon Dioxide BUN Creatinine Glucose POC Glucose (mg/dL) 145 H Plasma Lactic Acid Rios Calcium AST ALT Total Protein Albumin - Diagnostic Findings Chest x-ray: image reviewed Assessment and Plan Assessment: In-hospital cardiac arrest requiring CPR and subsequent return of spontaneous circulation within approximately 5 minutes Acute hypoxemic respiratory failure secondary to above requiring intubation m echanical ventilatory support on 01/11/2023 Hypotension requiring pressor support History of oxygen dependent chronic obstructive pulmonary disease Chronic and ongoing tobacco dependence Chronic atrial fibrillation, anticoagulated with Eliquis History of hypertension Hyperlipidemia Hypothyroidism History of bipolar disorder History of anxiety/depression History of marijuana use Plan: The patient was seen and evaluated Chest x-ray, ABGs, labs and medications reviewed Titrate the FiO2 as tolerated Continue bronchodilators, IV Solu-Medrol NicoDerm patch in place Titrate the norepinephrine as tolerated Left internal jugular triple lumen catheter placed Right radial arterial line placed We will continue to follow and make further recommendations based on his clinical status I have personally seen and examined the patient, performed the documentation and the assessment and plan as written. Number of minutes spent on the visit: 20.
[2023-01-12] MEDS ORDERED: HYDROmorphone 1 MG/ML 1 ML SYRINGE IVP PRN (12:48)
[2023-01-12 16:48] LABS: Glucose,Whole Blood 131 mg/dL (70-110)
--- NOTE | 2023-01-12 17:07 | PCN ---
PROCEDURE NOTE PROCEDURE PERFORMED: Right radial art line. PREOPERATIVE DIAGNOSES: Frequent blood draws and blood gas monitoring. POSTOPERATIVE DIAGNOSES: Frequent blood draws and blood gas monitoring. OPERATORS: 1. Dr. Steve. 2. Dr. Jorgensen. 3. Romaine Huston NP. The patient's procedure was done in room 257. DESCRIPTION OF PROCEDURE: We used a right radial artery. There were informed consent and universal time-out. There were good blood return and waveform. Catheter was sutured into place. A sterile dressing was applied by the nurse. There was no immediate complication. The patient tolerated the procedure well. MMODL / IJN: [id number] /
[2023-01-12] MEDS ORDERED: LORazepam 2 MG/ML INJ IV STA ×2 (17:33→17:57)
[2023-01-12] MEDS ORDERED: DILTIAZEM DRIP BOLUS FROM BAG 1 MG SOLN IV ONE (17:45)
[2023-01-12] MEDS: DILTIAZEM 125 MG in SODIUM CHLORIDE 0.9% 100 ML IV SCH ×2 (17:50→18:43)
[2023-01-12] MEDS ORDERED: levETIRAcetam IV 2,000 MG in SODIUM CHLORIDE 0.9% 250 ML IVPB ONE (18:15)
--- NOTE | 2023-01-12 18:24 | P.CNNES ---
History of Present Illness Consult date: 01/12/22 Requesting physician: Dickson Steve Reason for Consult: seizure History of Present Illness: This is a 67-year-old gentleman with history of atrial fibrillation on eliquis, COPD on oxygen, hypertension, ongoing tobacco use who presented emergency department yesterday by family around noon because of increased shortness of breath and chest pain. Neurology is consulted for seizure. History was obtained from medical record. According to the pulmonary team's note, patient has been following for the past 3 weeks and has probably fell 3 times and he's quite short of breath dyspnea with exertion. Seems that the patient urgently being admitted to the regular medical floor prior to the transfer from the emergency department he developed cardiac arrest requiring approximate 5 minutes CPR including 3 of epinephrine and 2 units of bicarb. He had nonsustained V. tach and was given amiodarone bolus as a result she was intubated. According to the ICU nurse activity she noted that his he's having body shaking unequal pupils (left > right) and biting and tube and episode resolved with Ativan 2mg. Some other workup during the hospital visit consisted of Initial ABGs of pH is 7.18 predominantly hypercapnic. PH has normalized but the pCO2 was 67 bicarbonate is 37 Initial creatinine is 1.56 but it's trending down sodium on presentation 132 but it's improved magnesium is normal AST most recent 79 ALT 65 TSH is 0.548 2D echo was reported as poor quality study left ventricle size is normal there is mild global decrease in contractility noted. Endocardial margins are poorly seen. Occult contrast was not used. There is mild mitral annular calcification and aortic sclerosis. Sinus rhythm with first-degree AV block with frequent suburban ventricular premature complex. Possible left atrial enlargement. Possible right ventricular hypertrophy. Review of Systems Review of system is limited but the prone positive and negative as per HPI Past Medical History Past Medical History: Atrial Fibrillation, COPD, Eye Disorder, Hyperlipidemia, H ypertension, Osteoarthritis (OA), Thyroid Disorder Additional Past Medical History / Comment(s): Sober for 10 years, hiatal hernia, glaucoma left eye, possible stroke behind left eye per opthamologist. arthritis in back,cystic acne on back to see residential interior designer. History of Any Multi-Drug Resistant Organisms: None Reported Additional Past Surgical History / Comment(s): HYDROCELE surg. x2, hemorrhoidectomy, colonoscopy, cataract surgery Past Anesthesia/Blood Transfusion Reactions: No Reported Reaction Additional Past Anesthesia/Blood Transfusion Reaction / Comment(s): no blood transfusions Past Psychological History: Anxiety, Bipolar, Panic Disorder Smoking Status: Current every day smoker Past Alcohol Use History: None Reported Past Drug Use History: Marijuana - Past Family History Mother Family Medical History: Diabetes Mellitus Father Family Medical History: Coronary Artery Disease (CAD) Sister(s) Family Medical History: Coronary Artery Disease (CAD), Diabetes Mellitus, Hypertension Medications and Allergies Home Medications Medication Instructions Recorded Confirmed Type Latanoprost/Pf [Latanoprost 0.005% 1 drop LEFT EYE HS 08/18/20 01/11/23 History Eye Drop] Levothyroxine Sodium 125 mcg PO DAILY 08/18/20 01/11/23 History Albuterol Sulfate [Albuterol 1 puff PO RT-Q4H PRN 04/01/22 01/11/23 History Sulfate Hfa] Apixaban [Eliquis] 5 mg PO BID 04/01/22 01/11/23 History Aspirin EC [Ecotrin Low Dose] 81 mg PO DAILY 04/01/22 01/11/23 History Gabapentin [Neurontin] 200 mg PO TID 04/01/22 01/11/23 History Loratadine [Claritin] 10 mg PO DAILY 04/01/22 01/11/23 History Metoprolol Tartrate [Lopressor] 75 mg PO BID 30 Days #60 tab 12/22/22 01/11/23 Rx Albuterol Nebulized [Ventolin 3 ml INHALATION RT-Q6H 01/11/23 01/11/23 History Nebulized (Accuneb)] Flecainide [Tambocor] 50 mg PO BID 01/11/23 01/11/23 History Fluticasone/Vilanterol [Breo 1 puff INHALATION RT-DAILY 01/11/23 01/11/23 History Ellipta 200-25 Mcg Inhaler] Furosemide [Lasix] 80 mg PO DAILY 01/11/23 01/11/23 History Minocycline [Minocin] 50 mg PO Q12HR 01/11/23 01/11/23 History OLANZapine [ZyPREXA] 20 mg PO HS 01/11/23 01/11/23 History PARoxetine HCL [Paxil] 30 mg PO HS 01/11/23 01/11/23 History Pantoprazole Sodium [Protonix] 40 mg PO DAILY 01/11/23 01/11/23 History Tiotropium [place] [Spiriva] 1 puff INHALATION RT-DAILY 01/11/23 01/11/23 History Allergies Allergy/AdvReac Type Severity Reaction Status Date / Time No Known Allergies Allergy Verified 01/11/23 14:49 Physical Examination - Vital Signs Vital Signs: Vital Signs Temp Pulse Resp BP Pulse Ox FiO2 01/12/23 16:10 65 01/12/23 16:01 58 L 01/12/23 15:50 50 01/12/23 12:30 65 22 91/70 96 01/12/23 12:15 76 23 91/70 97 01/12/23 12:12 74 01/12/23 12:00 97.6 F 64 25 H 105/69 97 60 01/12/23 11:58 66 01/12/23 11:46 60 01/12/23 11:45 67 22 105/69 98 01/12/23 11:30 59 L 20 105/69 96 01/12/23 11:15 70 14 105/69 95 01/12/23 11:00 64 12 105/69 95 01/12/23 10:45 70 19 105/69 94 L 01/12/23 10:30 61 17 105/69 95 01/12/23 10:15 65 16 108/73 94 L 01/12/23 10:00 64 24 107/79 95 01/12/23 09:45 65 24 105/70 98 70 01/12/23 09:30 62 24 114/79 97 70 01/12/23 09:15 74 24 105/72 97 70 01/12/23 09:12 66 01/12/23 09:00 65 12 98/70 99 70 01/12/23 08:52 64 01/12/23 08:45 64 21 91/62 98 70 01/12/23 08:42 66 01/12/23 08:34 70 01/12/23 08:33 65 01/12/23 08:30 67 17 91/64 99 80 01/12/23 08:20 67 01/12/23 08:15 61 19 89/63 98 80 01/12/23 08:07 80 01/12/23 08:00 97.5 F L 64 24 90/63 99 80 01/12/23 07:45 66 24 90/60 99 01/12/23 07:30 66 24 88/64 99 01/12/23 07:15 66 24 86/61 99 01/12/23 07:00 68 24 87/63 99 80 01/12/23 06:00 74 24 89/64 99 80 01/12/23 05:30 66 24 96/66 99 01/12/23 05:00 70 24 86/61 98 80 01/12/23 04:30 66 24 85/58 98 01/12/23 04:00 98.1 F 65 24 83/57 98 80 01/12/23 03:30 64 24 85/60 98 01/12/23 03:15 80 01/12/23 03:12 66 01/12/23 03:00 65 24 89/57 98 80 01/12/23 02:30 74 24 93/69 96 01/12/23 02:00 71 24 94/65 92 L 80 01/12/23 01:30 72 19 80/57 93 L 01/12/23 01:00 73 24 88/61 93 L 80 01/12/23 00:34 76 01/12/23 00:30 78 24 80/56 76 L 01/12/23 00:23 71 01/12/23 00:00 97.6 F 72 24 115/88 95 80 01/11/23 23:40 80 01/11/23 23:30 71 24 78/57 95 01/11/23 23:00 97.4 F L 79 24 96/67 92 L 80 01/11/23 22:41 86 24 01/11/23 22:10 94/67 01/11/23 22:00 74 24 98/71 96 01/11/23 21:50 72 24 98/71 96 01/11/23 21:40 75 24 126/92 96 01/11/23 21:30 75 16 83/68 96 01/11/23 21:20 70 0 L 83/68 95 01/11/23 21:10 69 0 L 86/64 94 L 01/11/23 21:00 70 0 L 85/64 95 01/11/23 20:50 70 0 L 85/64 94 L 01/11/23 20:40 68 0 L 86/63 93 L 01/11/23 20:30 67 0 L 89/67 93 L 01/11/23 20:20 68 0 L 89/67 93 L 01/11/23 20:10 65 8 L 83/68 94 L 01/11/23 20:07 70 01/11/23 20:00 68 9 L 86/67 94 L 01/11/23 19:52 72 01/11/23 19:50 69 24 107/79 97 01/11/23 19:40 70 14 97/74 95 01/11/23 19:37 70 80 01/11/23 19:30 70 19 100/78 95 01/11/23 19:20 71 14 99/77 95 01/11/23 19:10 71 6 L 108/78 95 01/11/23 19:00 73 16 104/81 96 01/11/23 18:50 76 18 111/85 98 01/11/23 18:40 78 19 107/79 100 01/11/23 18:35 80 01/11/23 18:30 80 16 117/87 100 01/11/23 18:20 80 19 126/94 100 01/11/23 18:06 16 Intake and Output 01/12/23 01/12/23 01/12/23 06:59 14:59 22:59 Intake Total 2152.946 687.738 Output Total 265 270 Balance 1887.946 417.738 Intake: IV 2000 405 Invasive Line 3 30 Lactated Ringers 1,000 ml 375 @ 75 mls/hr IV .[id number] [facility] Rx#:[id number] Sodium Chloride 0.9% 1, 2000 000 ml @ 999 mls/hr IV . Q1H1M [facility] Rx#:[id number] Intake, IV Titration 152.946 282.738 Amount Norepinephrine 4 mg In 29.738 116.067 Sodium Chloride 0.9% 250 ml @ 0.03 MCG/KG/MIN 12. 391 mls/hr IV .[id number] [facility] Rx#:[id number] propofoL 1,000 mg In 123.208 166.671 Empty Bag 1 bag @ 15 MCG/ KG/MIN 9.757 mls/hr IV . [id number] [facility] Rx#:[id number] Output: Urine 265 270 Other: Voiding Method Indwelling Catheter Indwelling Catheter Weight 108.409 kg ABP, PAP, CO, CI - Last 8 Hours Arterial Blood Pressure 109/64 Arterial Blood Pressure 104/60 Arterial Blood Pressure 93/55 Arterial Blood Pressure 107/65 Arterial Blood Pressure 96/60 Arterial Blood Pressure 103/61 Arterial Blood Pressure 106/67 Arterial Blood Pressure 104/66 Arterial Blood Pressure 95/56 GENERAL: The patient is lying in bed and does not appear in acute distress. CHEST: The heart rate is regular rate rhythm. No edema in lowers. LUNG: Clear to auscultation bilaterally no wheezing noted throughout. Not labored breathing. ABDOMEN/GI: Bowel sounds present in all 4 quadrants. No tenderness to palpation throughout. NEUROLOGICAL: Limited since is on IV Propofol 60mcg/kg/min. Higher mental function: Comatose GCS 3 (E1, VT1, M1). Cranial nerves: The pupils are round, pinpoint. No facial weakness. Is breathing over the vent. Has positive Gag reflex. Otherwise no other brainstem reflex. Motor: The strength is not withrawaling to any extremities to painful stimuli. No jerking or twitching of any extremities. Normal tone and bulk. Cerebellum: Unable to assess. Sensation: Unable to assess light touch and no movement to painful stimuli. Reflexes (right/left): 1+ throughout. Plantars are mute bilaterally. Results - Laboratory Findings CBC and BMP: 01/12/23 05:21 01/12/23 05:21 Abnormal Lab Findings: Abnormal Labs 01/11/23 01/11/23 01/11/23 12:26 12:26 12:26 WBC Hct Plt Count 121 L Neutrophils # Lymphocytes # Monocytes # PT 13.7 H INR 1.4 H ABG pH ABG pCO2 ABG pO2 ABG HCO3 ABG Total CO2 ABG O2 Saturation Sodium 132 L Potassium Chloride 90 L Carbon Dioxide 36 H BUN 25 H Creatinine 1.56 H Glucose 109 H POC Glucose (mg/dL) Plasma Lactic Acid Rios Calcium 8.1 L AST 71 H ALT 68 H Total Protein 5.7 L Albumin 3.1 L 01/11/23 01/11/23 01/11/23 17:28 17:43 17:43 WBC Hct Plt Count Neutrophils # Lymphocytes # Monocytes # PT INR ABG pH ABG pCO2 ABG pO2 ABG HCO3 ABG Total CO2 ABG O2 Saturation Sodium Potassium 3.1 L Chloride 89 L Carbon Dioxide 38 H BUN 24 H Creatinine 1.42 H Glucose 211 H POC Glucose (mg/dL) 140 H Plasma Lactic Acid Rios 3.9 H* Calcium 7.7 L AST 79 H ALT 65 H Total Protein 5.5 L Albumin 3.0 L 01/11/23 01/11/23 01/11/23 18:23 21:17 22:19 WBC Hct Plt Count Neutrophils # Lymphocytes # Monocytes # PT INR ABG pH 7.18 L* ABG pCO2 102 H* ABG pO2 153 H ABG HCO3 38 H ABG Total CO2 42 H ABG O2 Saturation 97.7 H Sodium Potassium Chloride Carbon Dioxide BUN Creatinine Glucose POC Glucose (mg/dL) 136 H Plasma Lactic Acid Rios 2.2 H* Calcium AST ALT Total Protein Albumin 01/11/23 01/11/23 01/11/23 22:30 22:30 22:47 WBC 16.2 H Hct 53.9 H Plt Count 143 L Neutrophils # 14.4 H Lymphocytes # 0.4 L Monocytes # 1.1 H PT INR ABG pH ABG pCO2 71 H* ABG pO2 67 L ABG HCO3 39 H ABG Total CO2 41 H ABG O2 Saturation 92.5 L Sodium Potassium Chloride 92 L Carbon Dioxide 38 H BUN 23 H Creatinine 1.36 H Glucose 130 H POC Glucose (mg/dL) Plasma Lactic Acid Rios Calcium 7.8 L AST ALT Total Protein Albumin 01/11/23 01/12/23 01/12/23 23:42 05:21 05:21 WBC 13.9 H Hct Plt Count 123 L Neutrophils # 12.9 H Lymphocytes # 0.5 L Monocytes # PT INR ABG pH ABG pCO2 ABG pO2 ABG HCO3 ABG Total CO2 ABG O2 Saturation Sodium Potassium Chloride 95 L Carbon Dioxide 38 H BUN Creatinine Glucose 136 H POC Glucose (mg/dL) 130 H Plasma Lactic Acid Rios Calcium 7.8 L AST ALT Total Protein Albumin 01/12/23 01/12/23 01/12/23 05:55 06:22 16:46 WBC Hct Plt Count Neutrophils # Lymphocytes # Monocytes # PT INR ABG pH ABG pCO2 67 H ABG pO2 ABG HCO3 37 H ABG Total CO2 39 H ABG O2 Saturation Sodium Potassium Chloride Carbon Dioxide BUN Creatinine Glucose POC Glucose (mg/dL) 145 H 131 H Plasma Lactic Acid Rios Calcium AST ALT Total Protein Albumin Assessment and Plan Assessment: This is a 67-year-old gentleman who presented because of the severe shortness of breath and dyspnea. In the emergency department she had that cardiopulmonary. Cardiopulmonary arrest (reported rhythm was VT) requiring 5 minute CPR Altered mental status seems due to anoxic encephalopathy due to above. Probable Seizure due to his cardiopulmonary arrest (had shaking of all extremities, unequal pupils and tongue bite)--resolved with 2mg Ativan Also patient has a component of metabolic encephalopathy Cardiogenic shock Severe shortness of breath with dyspnea eventually work on to be intubated and the on a ventilator after the cardiopulmonary arrest Acute kidney injury--resolved History of Atrial fibrillation on eliquis Seem to the patient has a history of possible stroke behind the left eye Of hypertension Hyperlipidemia Hypothyroidism Nicotine dependence Plan: I notified the nurse to give an additional 2 mg Ativan if continues to have those episodes and repeat three time if needed (total 8mg). I loaded the patient with Keppra 2 g once and for him on Keppra 1 g every 12 hours If he continues to seize then I'll will start him on a Versed drip (currently on IV propofol) I ordered a stat EEG which will be done tomorrow since no EEG techs available right now Ordered a stat CT of the head Every hour neuro checks Please avoid any hypotensive episode We'll defer the rest of the medical management to primary team Condition is critical The plan is discussed with his ICU nurse. Thank you for the consultation Time with Patient: Greater than 30
[2023-01-12] MEDS ORDERED: DEXTROSE 5% IN WATER 100 ML with AMIODARONE 150 MG IV ONE (18:30)
[2023-01-12] MEDS ORDERED: AMIODARONE 360 MG in DEXTROSE 5% IN WATER 200 ML IV ONE ×2 (18:45)
[2023-01-12 19:08] LABS: Glucose,Whole Blood 153 mg/dL (70-110)
[2023-01-12 19:37] LABS: Appearance,Urine Cloudy (Clear); Bacteria,Urine Rare /hpf; Bilirubin,Urine Negative (Negative); Blood,Urine Moderate (Negative); Color,Urine Yellow; Glucose,Urine (UA) Negative (Negative); Hyaline Casts,Urine 8 /lpf (0-2); Ketones,Urine Negative (Negative); Leukocyte Esterase,Urine Moderate (Negative); Mucus,Urine Rare /hpf; Nitrite,Urine Negative (Negative); Protein,Urine 1+ (Negative); RBC,Urine 107 /hpf (0-5); Specific Gravity,Urine 1.027 (1.001-1.035); Urobilinogen,Urine <2.0 mg/dL (<2.0); WBC,Urine 3 /hpf (0-5)
[2023-01-12] MEDS: OLANZapine 10 MG TAB PO SCH (21:57)
[2023-01-12] MEDS: LATANOPROST 0.005% OPHTH DROPS 2.5 ML BTL LEFT EYE SCH (21:58)
[2023-01-12] MEDS: POTASSIUM BICARBONATE/CIT AC 20 MEQ TABLET.EFF NG-TUBE SCH (23:35)
[2023-01-13 00:10] LABS: Glucose,Whole Blood 150 mg/dL (70-110)
[2023-01-13] MEDS: IPRATROPIUM 0.5 MG/2.5 ML NEBU INHALATION SCH ×6 (00:10→20:58)
[2023-01-13] MEDS: ALBUTEROL NEBULIZED 2.5 MG/3 ML INHALATION SCH ×6 (00:10→20:58)
[2023-01-13] MEDS: NOREPINEPHRINE 4 MG in SODIUM CHLORIDE 0.9% 250 ML IV SCH ×4 (00:39→22:57)
[2023-01-13] MEDS: POTASSIUM BICARBONATE/CIT AC 20 MEQ TABLET.EFF NG-TUBE SCH (00:40)
[2023-01-13] MEDS ORDERED: AMIODARONE 450 MG in DEXTROSE 5% IN WATER 250 ML IV SCH ×2 (01:00)
[2023-01-13] MEDS: DILTIAZEM 125 MG in SODIUM CHLORIDE 0.9% 100 ML IV SCH ×2 (01:11→07:46)
[2023-01-13 05:22] LABS: Basophils % (A) 0 %; Eosinophils % (A) 0 %; HCT 50.1 % (39.0-53.0); HGB 16.2 gm/dL (13.0-17.5); Lymphocytes # (A) 0.9 k/uL (1.0-4.8); Lymphocytes % (A) 5 %; MCH 30.8 pg (25.0-35.0); MCHC 32.3 g/dL (31.0-37.0); MCV 95.6 fL (80.0-100.0); Mean Platelet Volume 11.3; Monocytes # (A) 0.6 k/uL (0-1.0); Monocytes % (A) 3 %; Neutrophils # (A) 16.2 k/uL (1.3-7.7); Neutrophils % (A) 91 %; Platelet Count 159 k/uL (150-450); RBC 5.24 m/uL (4.30-5.90); RDW 14.9 % (11.5-15.5); WBC 17.9 k/uL (3.8-10.6)
[2023-01-13 05:39] LABS: Calcium 8.4 mg/dL (8.4-10.2); Potassium 3.9 mmol/L (3.5-5.1)
[2023-01-13 05:47] LABS: Glucose,Whole Blood 140 mg/dL (70-110)
[2023-01-13] MEDS: LEVOTHYROXINE 125 MCG TAB PO SCH (06:00)
[2023-01-13] MEDS ORDERED: POTASSIUM BICARBONATE/CIT AC 20 MEQ TABLET.EFF NG-TUBE SCH (06:00)
[2023-01-13] MEDS ORDERED: INSULIN ASPART (NovoLOG) 100 UNIT/ML VIAL SQ SCH (06:00)
[2023-01-13] MEDS: methylPREDNISolone SOD SUCCI 125 MG/2 ML VIAL IV SCH ×4 (06:01→23:57)
[2023-01-13] MEDS: INSULIN ASPART (NovoLOG) 100 UNIT/ML VIAL SQ SCH ×3 (06:01→18:49)
[2023-01-13 06:29] LABS: ABG Base Excess 11.3 mmol/L; ABG HCO3 35 mmol/L (21-25); ABG Oxygen Saturation 92.8 % (94-97); ABG PCO2 52 mmHg (35-45); ABG PH 7.44 (7.35-7.45); ABG PO2 66 mmHg (83-108); ABG TCO2 37 mmol/L (19-24); Allen Test Performed? Yes
--- NOTE | 2023-01-13 07:46 | P.PN ---
Subjective Progress Note Date: 01/13/23 The patient is a 67-year-old gentleman who we are asked to be seen in the intensive care unit for further cardiac evaluation. Currently the patient is intubated and he is on mechanical ventilation. The history was taken from the chart as well as from the nurse taking care of the patient. Apparently the patient presented to the emergency department with progressive dyspnea of unknown duration. He is known to have chronic obstructive pulmonary disease and also paroxysmal atrial fibrillation and cardiomyopathy. In the emergency department he was evaluated and during his stay he did have an episode of cardiopulmonary arrest with PEA. The downtime was about 5 minutes. Subsequently the patient was intubated and he was admitted to the intensive care unit. Currently he is on norepinephrine. He is in normal sinus mechanism. He was on flecainide. No indication that he was experiencing any symptoms of chest pain or chest discomfort before but he presented with increasing shortness of breath. He is known to have severe COPD and he is on oxygen at 3 L. The chest x-ray showed findings consistent with chronic disease/COPD. No troponin was performed. The rest of his discomfort overall appeared unremarkable. 01/13/2023 The patient was seen this morning. He continues to be intubated on mechanical ventilation. Currently there is a concern about an exit encephalopathy and he is in process computed tomography scan. He is now in sinus mechanism with sinus bradycardia. I'm going to DC amiodarone IV and start the patient on amiodarone by mouth 200 mg twice a day the Cardizem was stopped yesterday. Hold any anticoagulation at this point. Acute coronary syndrome was ruled out with 3 serial troponin came in to be unremarkable Assessment Cardiopulmonary arrest with PEA Known severe COPD/chronic hypoxic respiratory failure Paroxysmal atrial fibrillation was receiving flecainide History of cardiomyopathy Multiple comorbid conditions Plan Continue hemodynamic support DC and new IV and start the patient on annual by mouth Acute coronary syndrome was ruled out Rule out flecainide proarrhythmia. Rule out ventricular tachycardia/ventricular fibrillation as well Follow-up with the patient Objective - Vital Signs Vital signs: Vital Signs Temp 97.6 F 01/13/23 04:00 Pulse 41 L 01/13/23 07:00 Resp 25 H 01/13/23 07:00 BP 116/83 01/13/23 07:00 Pulse Ox 100 01/13/23 07:00 FiO2 70 03/04/23 04:05 Intake & Output 01/12/23 01/13/23 01/13/23 18:59 06:59 18:59 Intake Total 5866.770 2956.054 75 Output Total 565 325 30 Balance 995.419 5622.054 45 Weight 108.409 kg Intake: IV 915 990 75 Invasive Line 3 90 90 Lactated Ringers 1,000 ml 825 900 75 @ 75 mls/hr IV .[id number] [facility] Rx#:[id number] Intake, IV Titration 482.369 999.054 Amount Diltiazem 125 mg In 73.5 Sodium Chloride 0.9% 100 ml @ 10 MG/HR 10 mls/hr IV .[id number] [facility] Rx#: [id number] Norepinephrine 4 mg In 224.262 725.554 Sodium Chloride 0.9% 250 ml @ 0.03 MCG/KG/MIN 12. 391 mls/hr IV .[id number] [facility] Rx#:[id number] propofoL 1,000 mg In 258.107 200 Empty Bag 1 bag @ 15 MCG/ KG/MIN 9.757 mls/hr IV . [id number] [facility] Rx#:[id number] Output: Urine 565 325 30 Other: Voiding Method Indwelling Catheter Indwelling Catheter ABP, PAP, CO, CI - Last Documented Arterial Blood Pressure 122/72 - Labs CBC & Chem 7: 01/13/23 04:45 01/13/23 04:45 Labs: Abnormal Lab Results - Last 24 Hours (Table) 01/12/23 01/12/23 01/12/23 Range/Units 16:46 19:06 19:07 WBC (3.8-10.6) k/uL Neutrophils # (1.3-7.7) k/uL Lymphocytes # (1.0-4.8) k/uL ABG pCO2 (35-45) mmHg ABG pO2 (83-108) mmHg ABG HCO3 (21-25) mmol/L ABG Total CO2 (19-24) mmol/L ABG O2 Saturation (94-97) % Sodium (137-145) mmol/L Chloride (98-107) mmol/L Carbon Dioxide (22-30) mmol/L BUN (9-20) mg/dL Glucose (74-99) mg/dL POC Glucose (mg/dL) 131 H 153 H (70-110) mg/dL Ammonia (<30) umol/L Urine Protein 1+ H (Negative) Urine Blood Moderate H (Negative) Ur Leukocyte Esterase Moderate H (Negative) Urine RBC 107 H (0-5) /hpf Urine WBC Clumps Rare H (None) /hpf Urine Bacteria Rare H (None) /hpf Hyaline Casts 8 H (0-2) /lpf Urine Mucus Rare H (None) /hpf 01/12/23 01/13/23 01/13/23 Range/Units 20:53 00:07 04:45 WBC 17.9 H (3.8-10.6) k/uL Neutrophils # 16.2 H (1.3-7.7) k/uL Lymphocytes # 0.9 L (1.0-4.8) k/uL ABG pCO2 (35-45) mmHg ABG pO2 (83-108) mmHg ABG HCO3 (21-25) mmol/L ABG Total CO2 (19-24) mmol/L ABG O2 Saturation (94-97) % Sodium (137-145) mmol/L Chloride (98-107) mmol/L Carbon Dioxide (22-30) mmol/L BUN (9-20) mg/dL Glucose (74-99) mg/dL POC Glucose (mg/dL) 150 H (70-110) mg/dL Ammonia 30 H (<30) umol/L Urine Protein (Negative) Urine Blood (Negative) Ur Leukocyte Esterase (Negative) Urine RBC (0-5) /hpf Urine WBC Clumps (None) /hpf Urine Bacteria (None) /hpf Hyaline Casts (0-2) /lpf Urine Mucus (None) /hpf 01/13/23 01/13/23 01/13/23 Range/Units 04:45 05:45 06:25 WBC (3.8-10.6) k/uL Neutrophils # (1.3-7.7) k/uL Lymphocytes # (1.0-4.8) k/uL ABG pCO2 52 H (35-45) mmHg ABG pO2 66 L (83-108) mmHg ABG HCO3 35 H (21-25) mmol/L ABG Total CO2 37 H (19-24) mmol/L ABG O2 Saturation 92.8 L (94-97) % Sodium 136 L (137-145) mmol/L Chloride 96 L (98-107) mmol/L Carbon Dioxide 35 H (22-30) mmol/L BUN 23 H (9-20) mg/dL Glucose 146 H (74-99) mg/dL POC Glucose (mg/dL) 140 H (70-110) mg/dL Ammonia (<30) umol/L Urine Protein (Negative) Urine Blood (Negative) Ur Leukocyte Esterase (Negative) Urine RBC (0-5) /hpf Urine WBC Clumps (None) /hpf Urine Bacteria (None) /hpf Hyaline Casts (0-2) /lpf Urine Mucus (None) /hpf Microbiology - Last 24 Hours (Table) 01/11/23 22:45 Sputum Culture - Preliminary Sputum
[2023-01-13] MEDS: BUDESONIDE 1 MG/2 ML NEBU INHALATION SCH ×2 (07:51→20:58)
[2023-01-13] MEDS: FORMOTEROL FUMARATE 20 MCG/2 ML NEBU INHALATION SCH ×2 (07:51→20:58)
--- NOTE | 2023-01-13 07:54 | XR ---
EXAMINATION TYPE: XR chest 1V DATE OF EXAM: 01/13/2023 6:28 AM COMPARISON: Chest radiographs from 01/12/2023 TECHNIQUE: XR chest 1V Portable AP radiograph of the chest. CLINICAL INDICATION:Male, 67 years old with history of Vent; FINDINGS: Lungs/Pleura: Bibasilar atelectasis similar to prior given differences in inspiration. No pneumothora x. Small left pleural effusion. Pulmonary vascularity: Unremarkable. Heart/mediastinum: Cardiomediastinal silhouette is enlarged and stable. Musculoskeletal: No acute osseous pathology. Other findings: None Lines/Tubes: Endotracheal tube with distal tip 3.3 cm above the preeti. Nasogastric tube with its distal tip and side-port projecting over the gastric lumen in a hiatal eliseo ia. Left internal jugular central venous catheter with distal tip at the cavoatrial junction. IMPRESSION: 1. Stable exam with bibasilar atelectasis with small left pleural effusion. 2. Stable support tubes.
[2023-01-13] MEDS ORDERED: levETIRAcetam IV 1,000 MG in SALINE 1 100ML.BAG IVPB SCH (09:00)
[2023-01-13] MEDS: NICOTINE 21MG/24HR PATCH TRANSDERM SCH (10:35)
[2023-01-13] MEDS: CHLORHEXIDINE GLUCONATE 15 ML CUP MUCOUS MEM SCH ×2 (10:35→21:22)
[2023-01-13] MEDS: FLECAINIDE 50 MG TAB PO SCH ×2 (10:35→21:21)
[2023-01-13] MEDS: GABAPENTIN 100 MG CAP PO SCH ×3 (10:36→21:21)
[2023-01-13] MEDS: AMIODARONE 200 MG TAB PO SCH ×2 (10:36→21:21)
[2023-01-13] MEDS: levETIRAcetam IV 750 MG in SODIUM CHLORIDE 0.9% 100 ML IVPB SCH ×2 (10:36→21:21)
[2023-01-13] MEDS: PANTOPRAZOLE 40 MG TABLET PO SCH (10:36)
[2023-01-13] MEDS: METOPROLOL TARTRATE 25 MG TAB PO SCH ×2 (10:44→20:49)
[2023-01-13] MEDS: LACTATED RINGERS 1,000 ML IV SCH (11:10)
[2023-01-13] MEDS: ASPIRIN 81 MG PO SCH (11:14)
[2023-01-13] MEDS: APIXABAN 5 MG TAB PO SCH ×2 (11:14→21:21)
--- NOTE | 2023-01-13 11:48 | P.PN ---
Subjective Progress Note Date: 01/13/23 The patient is seen at bedside and per the nurse no further clinical seizure noted. She felt patient heart rate has dropped but was on Amiodarone and Cardizem and was held. Overnight he was on IV Propofol 60mcg/kg/min but at shift change was at 40mcg/kg/min. Pending CT head and was not done since he was not stable since on norepi and multiple cardiac medications. Objective - Vital Signs Vital signs: Vital Signs Temp 97.7 F 01/13/23 08:00 Pulse 45 L 01/13/23 11:00 Resp 21 01/13/23 11:00 BP 126/85 01/13/23 11:00 Pulse Ox 95 01/13/23 11:00 FiO2 70 01/13/23 11:26 Intake & Output 01/12/23 01/13/23 01/13/23 18:59 06:59 18:59 Intake Total 4066.167 4879.054 1034.708 Output Total 565 325 180 Balance 073.209 6511.054 854.708 Weight 108.409 kg Intake: IV 915 990 405 Invasive Line 3 90 90 30 Lactated Ringers 1,000 ml 825 900 375 @ 75 mls/hr IV .[id number] [facility] Rx#:[id number] Intake, IV Titration 535.613 3097.054 529.708 Amount Amiodarone 450 mg In 126.669 Dextrose 5% in Water 250 ml @ 0.5 MG/MIN 16.667 mls/hr IV .Q15H [facility] Rx#: [id number] Diltiazem 125 mg In 73.5 Sodium Chloride 0.9% 100 ml @ 10 MG/HR 10 mls/hr IV .[id number] [facility] Rx#: [id number] Norepinephrine 4 mg In 224.262 725.554 352.303 Sodium Chloride 0.9% 250 ml @ 0.03 MCG/KG/MIN 12. 391 mls/hr IV .[id number] [facility] Rx#:[id number] propofoL 1,000 mg In 258.107 300 50.736 Empty Bag 1 bag @ 15 MCG/ KG/MIN 9.757 mls/hr IV . [id number] [facility] Rx#:[id number] Tube Feeding 100 Output: Urine 565 325 180 Other: Voiding Method Indwelling Catheter Indwelling Catheter ABP, PAP, CO, CI - Last Documented Arterial Blood Pressure 133/75 - Exam GENERAL: The patient is lying in bed and does not appear in acute distress. LUNG: Intubated on Vent NEUROLOGICAL: Limited since is on IV Propofol 40mcg/kg/min. Higher mental function: Comatose GCS 3 (E1, VT1, M1). Cranial nerves: The pupils are round, pinpoint but with suction it was dilated to 3mm and reactive to light. No facial weakness. Is breathing over the vent. Has positive very weak Gag reflex. Otherwise no other brainstem reflex. Motor: The strength is not withrawaling to any extremities to painful stimuli. No jerking or twitching of any extremities. Normal tone and bulk. Cerebellum: Unable to assess. Sensation: Unable to assess light touch and no movement to painful stimuli. Reflexes (right/left): 1+ throughout. Plantars are mute bilaterally. Some other workup during the hospital visit consisted of Initial ABGs of pH is 7.18 predominantly hypercapnic. PH has normalized but the pCO2 was 67 bicarbonate is 37 Initial creatinine is 1.56 but it's trending down sodium on presentation 132 but it's improved magnesium is normal AST most recent 79 ALT 65 TSH is 0.548 2D echo was reported as poor quality study left ventricle size is normal there is mild global decrease in contractility noted. Endocardial margins are poorly seen. Occult contrast was not used. There is mild mitral annular calcification and aortic sclerosis. Sinus rhythm with first-degree AV block with frequent suburban ventricular premature complex. Possible left atrial enlargement. Possible right ventricular hypertrophy. Ammonia level is 30 (normal is <30). - Labs CBC & Chem 7: 01/13/23 04:45 01/13/23 04:45 Labs: Abnormal Lab Results - Last 24 Hours (Table) 01/12/23 01/12/23 01/12/23 Range/Units 16:46 19:06 19:07 WBC (3.8-10.6) k/uL Neutrophils # (1.3-7.7) k/uL Lymphocytes # (1.0-4.8) k/uL ABG pCO2 (35-45) mmHg ABG pO2 (83-108) mmHg ABG HCO3 (21-25) mmol/L ABG Total CO2 (19-24) mmol/L ABG O2 Saturation (94-97) % Sodium (137-145) mmol/L Chloride (98-107) mmol/L Carbon Dioxide (22-30) mmol/L BUN (9-20) mg/dL Glucose (74-99) mg/dL POC Glucose (mg/dL) 131 H 153 H (70-110) mg/dL Ammonia (<30) umol/L Urine Protein 1+ H (Negative) Urine Blood Moderate H (Negative) Ur Leukocyte Esterase Moderate H (Negative) Urine RBC 107 H (0-5) /hpf Urine WBC Clumps Rare H (None) /hpf Urine Bacteria Rare H (None) /hpf Hyaline Casts 8 H (0-2) /lpf Urine Mucus Rare H (None) /hpf 01/12/23 01/13/23 01/13/23 Range/Units 20:53 00:07 04:45 WBC 17.9 H (3.8-10.6) k/uL Neutrophils # 16.2 H (1.3-7.7) k/uL Lymphocytes # 0.9 L (1.0-4.8) k/uL ABG pCO2 (35-45) mmHg ABG pO2 (83-108) mmHg ABG HCO3 (21-25) mmol/L ABG Total CO2 (19-24) mmol/L ABG O2 Saturation (94-97) % Sodium (137-145) mmol/L Chloride (98-107) mmol/L Carbon Dioxide (22-30) mmol/L BUN (9-20) mg/dL Glucose (74-99) mg/dL POC Glucose (mg/dL) 150 H (70-110) mg/dL Ammonia 30 H (<30) umol/L Urine Protein (Negative) Urine Blood (Negative) Ur Leukocyte Esterase (Negative) Urine RBC (0-5) /hpf Urine WBC Clumps (None) /hpf Urine Bacteria (None) /hpf Hyaline Casts (0-2) /lpf Urine Mucus (None) /hpf 01/13/23 01/13/23 01/13/23 Range/Units 04:45 05:45 06:25 WBC (3.8-10.6) k/uL Neutrophils # (1.3-7.7) k/uL Lymphocytes # (1.0-4.8) k/uL ABG pCO2 52 H (35-45) mmHg ABG pO2 66 L (83-108) mmHg ABG HCO3 35 H (21-25) mmol/L ABG Total CO2 37 H (19-24) mmol/L ABG O2 Saturation 92.8 L (94-97) % Sodium 136 L (137-145) mmol/L Chloride 96 L (98-107) mmol/L Carbon Dioxide 35 H (22-30) mmol/L BUN 23 H (9-20) mg/dL Glucose 146 H (74-99) mg/dL POC Glucose (mg/dL) 140 H (70-110) mg/dL Ammonia (<30) umol/L Urine Protein (Negative) Urine Blood (Negative) Ur Leukocyte Esterase (Negative) Urine RBC (0-5) /hpf Urine WBC Clumps (None) /hpf Urine Bacteria (None) /hpf Hyaline Casts (0-2) /lpf Urine Mucus (None) /hpf Microbiology - Last 24 Hours (Table) 01/11/23 22:45 Gram Stain - Preliminary Sputum Sputum Culture - Preliminary Assessment and Plan Assessment: This is a 67-year-old gentleman who presented because of the severe shortness of breath and dyspnea. In the emergency department she had that cardiopulmonary. Cardiopulmonary arrest (reported rhythm was VT) requiring 5 minute CPR Altered mental status seems due to anoxic encephalopathy due to above. component of metabolic encephalopathy and Medication induced (IV Propofol). Probable Seizure due to his cardiopulmonary arrest (reported had shaking of all extremities, unequal pupils and tongue bite)--resolved with 2mg Ativan Cardiogenic shock on Norepi Severe shortness of breath with dyspnea eventually work on to be intubated and the on a ventilator after the cardiopulmonary arrest Acute kidney injury--resolved History of Atrial fibrillation on eliquis Seem to the patient has a history of possible stroke behind the left eye Of hypertension Hyperlipidemia Hypothyroidism Nicotine dependence Plan: Continue Keppra 750mg every 12 hours for seizure. Pending STAT EEG and CT. He has not received CT since not hemodynamically stable but will attempt today. Every hour neuro checks Please avoid any hypotensive episode His ammonia level is 30 and normal is <30. Will defer management to primary team. We'll defer the rest of the medical management to primary team Condition is critical The plan is discussed with his ICU nurse. Time with Patient: Less than 30
--- NOTE | 2023-01-13 13:02 | P.PN ---
Subjective Progress Note Date: 01/13/23 This is 67-year-old male patient with a known history of atrial fibrillation anticoagulated with Eliquis, chronic obstructive pulmonary disease, oxygen dependent respiratory failure, hyperlipidemia, hypertension, hypothyroidism, bipolar disorder, chronic and ongoing tobacco dependence, marijuana use. He was brought into the emergency room yesterday by family around noontime for increasing shortness of breath and chest wall pain. The patient had been falling approximately 3 times in the past 3 weeks. He was quite short of breath and dyspneic with exertion. He was originally being admitted to the regular medical floor when prior to his transfer from the emergency department he developed a cardiac arrest requiring approximately 5 minutes of CPR including 3 A of epinephrine and 2 units Amps of bicarb. He was also having some nonsustained VT and was given amiodarone bolus. He was intubated and transferred to the intensive care unit. He is seen today in consultation. He is currently on the mechanical ventilator in assist control mode at a rate of 24, tidal out of 450, FiO2 80% and a PEEP of 5. Morning blood gases revealed a PaO2 of 97, pCO2 67, pH 7.35 on the 80% FiO2. His x-ray reveals persistent large hiatal hernia. Persistent bibasilar opacities. Echocardiogram revealed left ventricular systolic function with ejection fraction 45-50%. Sputum culture pending. White count 13.9. Hemoglobin 16.2. Platelets 123. Sodium 138. Potassium 3.7. Bicarb 38. BUN 20. Creatinine 1.19. Glucose 136. He is sedated with propofol at 40 mcg/kg/m. Requiring norepinephrine at 4.3 mcg/m. He's initiated on bronchodilators, IV Solu-Medrol. Anticoagulated with Eliquis. NicoDerm patch in place. The patient is seen today 01/13/2023 in follow-up in the intensive care unit. He remains intubated on mechanical ventilator in assist control at a rate of 24, tidal volume 450, FiO2 50% and a PEEP of 5. Morning blood gases revealed a pO2 of 66, pCO2 52, pH 7.44. He is sedated on propofol 20 mcg/kg/m. Norepinephrine at 15 mcg/m. Lactated Ringer's at 75 ML's per hour. He is being nourished with vital 8. Her rate of 30 with a goal of 60. He did have some issues with atrial fibrillation and is currently in sinus rhythm. Chest x-ray revealed stable bibasilar atelectasis with a small left effusion. Endotracheal and gastric tube secured in place. Left internal CVP line in place. Sputum cultures pending. White count 17.9. Hemoglobin 16.2. Platelets 159. Sodium 136. Potassium 3.9. Bicarb 35. BUN 23. Creatinine 1.03. Glucose 146. ProBNP 1150. Troponin 0.016. He is currently in a +2.5 L balance. He is maintained on albuterol inhalations, Pulmicort and Perforomist inhalations, IV Solu-Medrol. NicoDerm patch in place. Anticoagulated with Eliquis. Objective - Vital Signs Vital signs: Vital Signs Temp 97.7 F 01/13/23 08:00 Pulse 45 L 01/13/23 11:00 Resp 21 01/13/23 11:00 BP 126/85 01/13/23 11:00 Pulse Ox 95 01/13/23 11:00 FiO2 70 01/13/23 11:26 Intake & Output 01/12/23 01/13/23 01/13/23 18:59 06:59 18:59 Intake Total 3338.578 2948.054 1182.789 Output Total 565 325 480 Balance 266.527 9076.054 702.789 Weight 108.409 kg Intake: IV 915 990 510 Invasive Line 3 90 90 60 Lactated Ringers 1,000 ml 825 900 450 @ 75 mls/hr IV .[id number] [facility] Rx#:[id number] Intake, IV Titration 826.452 5408.054 532.789 Amount Amiodarone 450 mg In 126.669 Dextrose 5% in Water 250 ml @ 0.5 MG/MIN 16.667 mls/hr IV .Q15H [facility] Rx#: [id number] Diltiazem 125 mg In 73.5 Sodium Chloride 0.9% 100 ml @ 10 MG/HR 10 mls/hr IV .[id number] [facility] Rx#: [id number] Norepinephrine 4 mg In 224.262 725.554 352.348 Sodium Chloride 0.9% 250 ml @ 0.03 MCG/KG/MIN 12. 391 mls/hr IV .[id number] [facility] Rx#:[id number] propofoL 1,000 mg In 258.107 300 53.772 Empty Bag 1 bag @ 15 MCG/ KG/MIN 9.757 mls/hr IV . [id number] [facility] Rx#:[id number] Tube Feeding 140 Output: Urine 565 325 480 Other: Voiding Method Indwelling Catheter Indwelling Catheter ABP, PAP, CO, CI - Last Documented Arterial Blood Pressure 133/75 - Exam GENERAL EXAM: Intubated, sedated 67-year-old male patient, comfortable in no apparent distress. HEAD: Normocephalic. EYES: Normal reaction of pupils, equal size. NOSE: Clear with pink turbinates. THROAT: Oral endotracheal and gastric tube secured in place. No erythema or exudates. NECK: No masses, no JVD. CHEST: No chest wall deformity. LUNGS: Equal air entry with few scattered rhonchi. CVS: S1 and S2 normal with no audible murmur, regular rhythm. ABDOMEN: No hepatosplenomegaly, normal bowel sounds, no guarding or rigidity. SPINE: No scoliosis or deformity SKIN: No rashes CENTRAL NERVOUS SYSTEM: Sedated, tone is normal in all 4 extremities. EXTREMITIES: There is no peripheral edema. No clubbing, no cyanosis. Peripheral pulses are intact. - Labs CBC & Chem 7: 01/13/23 04:45 01/13/23 04:45 Labs: Abnormal Lab Results - Last 24 Hours (Table) 01/12/23 01/12/23 01/12/23 Range/Units 16:46 19:06 19:07 WBC (3.8-10.6) k/uL Neutrophils # (1.3-7.7) k/uL Lymphocytes # (1.0-4.8) k/uL ABG pCO2 (35-45) mmHg ABG pO2 (83-108) mmHg ABG HCO3 (21-25) mmol/L ABG Total CO2 (19-24) mmol/L ABG O2 Saturation (94-97) % Sodium (137-145) mmol/L Chloride (98-107) mmol/L Carbon Dioxide (22-30) mmol/L BUN (9-20) mg/dL Glucose (74-99) mg/dL POC Glucose (mg/dL) 131 H 153 H (70-110) mg/dL Ammonia (<30) umol/L Urine Protein 1+ H (Negative) Urine Blood Moderate H (Negative) Ur Leukocyte Esterase Moderate H (Negative) Urine RBC 107 H (0-5) /hpf Urine WBC Clumps Rare H (None) /hpf Urine Bacteria Rare H (None) /hpf Hyaline Casts 8 H (0-2) /lpf Urine Mucus Rare H (None) /hpf 01/12/23 01/13/23 01/13/23 Range/Units 20:53 00:07 04:45 WBC 17.9 H (3.8-10.6) k/uL Neutrophils # 16.2 H (1.3-7.7) k/uL Lymphocytes # 0.9 L (1.0-4.8) k/uL ABG pCO2 (35-45) mmHg ABG pO2 (83-108) mmHg ABG HCO3 (21-25) mmol/L ABG Total CO2 (19-24) mmol/L ABG O2 Saturation (94-97) % Sodium (137-145) mmol/L Chloride (98-107) mmol/L Carbon Dioxide (22-30) mmol/L BUN (9-20) mg/dL Glucose (74-99) mg/dL POC Glucose (mg/dL) 150 H (70-110) mg/dL Ammonia 30 H (<30) umol/L Urine Protein (Negative) Urine Blood (Negative) Ur Leukocyte Esterase (Negative) Urine RBC (0-5) /hpf Urine WBC Clumps (None) /hpf Urine Bacteria (None) /hpf Hyaline Casts (0-2) /lpf Urine Mucus (None) /hpf 01/13/23 01/13/23 01/13/23 Range/Units 04:45 05:45 06:25 WBC (3.8-10.6) k/uL Neutrophils # (1.3-7.7) k/uL Lymphocytes # (1.0-4.8) k/uL ABG pCO2 52 H (35-45) mmHg ABG pO2 66 L (83-108) mmHg ABG HCO3 35 H (21-25) mmol/L ABG Total CO2 37 H (19-24) mmol/L ABG O2 Saturation 92.8 L (94-97) % Sodium 136 L (137-145) mmol/L Chloride 96 L (98-107) mmol/L Carbon Dioxide 35 H (22-30) mmol/L BUN 23 H (9-20) mg/dL Glucose 146 H (74-99) mg/dL POC Glucose (mg/dL) 140 H (70-110) mg/dL Ammonia (<30) umol/L Urine Protein (Negative) Urine Blood (Negative) Ur Leukocyte Esterase (Negative) Urine RBC (0-5) /hpf Urine WBC Clumps (None) /hpf Urine Bacteria (None) /hpf Hyaline Casts (0-2) /lpf Urine Mucus (None) /hpf Microbiology - Last 24 Hours (Table) 01/11/23 22:45 Gram Stain - Preliminary Sputum Sputum Culture - Preliminary Assessment and Plan Assessment: In-hospital cardiac arrest requiring CPR and subsequent return of spontaneous circulation within approximately 5 minutes Acute hypoxemic respiratory failure secondary to above requiring intubation mechanical ventilatory support on 01/11/2023 Hypotension requiring pressor support History of oxygen dependent chronic obstructive pulmonary disease Chronic and ongoing tobacco dependence Chronic atrial fibrillation, anticoagulated with Eliquis History of hypertension Hyperlipidemia Hypothyroidism History of bipolar disorder History of anxiety/depression History of marijuana use Plan: The patient was seen and evaluated Chest x-ray, ABGs, labs and medications reviewed PEEP increased from 5 to 10 Wean down the FiO2 as tolerated Continue bronchodilators, IV Solu-Medrol NicoDerm patch in place Titrate the norepinephrine as tolerated Computed tomography scan of the brain is pending We will continue to follow and make further recommendations based on his clinical status I have personally seen and examined the patient, performed the documentation and the assessment and plan as written. Number of minutes spent on the visit: 15.
[2023-01-13 13:07] LABS: Glucose,Whole Blood 105 mg/dL (70-110)
--- NOTE | 2023-01-13 13:52 | P.PN ---
Progress Note - Text Progress Note Date: 01/13/23 Chief Complaint: Shortness of breath, chest pain This is a 67-year-old patient who follows with Dr. Alvin Villela. Chronic stable medical conditions include hyperlipidemia, hypothyroid, bipolar, atrial fibrillation. Patient is a smoker. COPD, CHF, bipolar, hiatal hernia Patient presented to the ER, brought in by the family because of shortness of breath and chest pain. In the last 3 weeks apparently patient is followed about 3 times. No fever no chills. Some palpitations. Increasing lower extremity edema. Nonproductive cough. Late in the afternoon patient was found to be in PEA. Code team was called. Patient did require epinephrine. intubated. FiO2 100 and PEEP of 5. Patient have a broad complex tachycardia. Crew Clerk Dr. Steve was informed. Admitted with acute COPD exacerbation, acute CHF exacerbation, acute hypoxic hypercapnic respiratory failure. Intubated. 01/12/2023: ICU. Drips include IV propofol, Levophed. Patient sedated. Telemetry shows sinus rhythm. FiO2 70 to PEEP of 5. Patient seen by supervisor boat outfitting Dr. Valdes. IV Lasix has been discontinued. IV fluids. 01/13/2023: ICU. Intubated. FiO2 70 PEEP of 10. Drips include propofol and norepinephrine. 2 feeding at 40 mL an hour. Patient went into A. fib with rapid ventricle rate yesterday. Was put on IV Cardizem and IV amiodarone. Went back into sinus rhythm. There was some concern about neuro status change for which neurology was consulted, pending computed tomography scan. No focal weakness. His started on IV Keppra per neurology Active Medications Acetaminophen (Acetaminophen Tab 325 Mg Tab) 650 mg PO Q4HR PRN PRN Reason: Mild Pain or Fever > 100.5 Albuterol Sulfate (Albuterol Nebulized 2.5 Mg/3 Ml) 2.5 mg INHALATION RT-Q4H [facility] Last Admin: 01/13/23 11:57 Dose: Not Given Amiodarone HCl (Amiodarone 200 Mg Tab) 200 mg PO BID [facility] Last Admin: 01/13/23 10:36 Dose: 200 mg Apixaban (Apixaban 5 Mg Tab) 5 mg PO BID [facility]; Protocol Last Admin: 01/13/23 11:14 Dose: 5 mg Aspirin (Aspirin 81 Mg) 81 mg PO DAILY [facility] Last Admin: 01/13/23 11:14 Dose: 81 mg Budesonide (Budesonide 1 Mg/2 Ml Nebu) 1 mg INHALATION RT-BID [facility] Last Admin: 01/13/23 07:51 Dose: 1 mg Chlorhexidine Gluconate (Chlorhexidine Gluconate 15 Ml Cup) 15 ml MUCOUS MEM BID [facility] Last Admin: 01/13/23 10:35 Dose: 15 ml Flecainide Acetate (Flecainide 50 Mg Tab) 50 mg PO BID [facility] Last Admin: 01/13/23 10:35 Dose: 50 mg Formoterol Fumarate (Formoterol Fumarate 20 Mcg/2 Ml Nebu) 20 mcg INHALATION RT-BID [facility] Last Admin: 01/13/23 07:51 Dose: 20 mcg Gabapentin (Gabapentin 100 Mg Cap) 200 mg PO TID [facility] Last Admin: 01/13/23 10:36 Dose: 200 mg Hydromorphone HCl (Hydromorphone 1 Mg/Ml 1 Ml Syringe) 1 mg IVP Q4HR PRN PRN Reason: Pain/Discomfort Propofol 1,000 mg/ IV Solution 100 mls @ 9.757 mls/hr IV .[id number] [facility]; Protocol Last Titration: 01/13/23 11:43 Dose: 0.08 mcg/kg/min, 0.052 mls/hr Norepinephrine Bitartrate 4 mg (/ Sodium Chloride) 254 mls @ 12.391 mls/hr IV .[id number] [facility]; Protocol Last Titration: 01/13/23 11:43 Dose: 0.08 mcg/kg/min, 33.043 mls/hr Lactated Ringer's (Lactated Ringers) 1,000 mls @ 75 mls/hr IV .[id number] [facility] Last Admin: 01/13/23 11:10 Dose: 75 mls/hr Levetiracetam 750 mg/ Sodium (Chloride) 107.5 mls @ 400 mls/hr IVPB Q12HR [facility] Last Admin: 01/13/23 10:36 Dose: 400 mls/hr Insulin Aspart (Insulin Aspart (Novolog) 100 Unit/Ml Vial) 0 unit SQ Q6HR [facility]; Protocol Last Admin: 01/13/23 13:17 Dose: Not Given Ipratropium Crosby (Ipratropium 0.5 Mg/2.5 Ml Nebu) 0.5 mg INHALATION RT-Q4H [facility] Last Admin: 01/13/23 12:07 Dose: Not Given Latanoprost (Latanoprost 0.005% Ophth Drops 2.5 Ml Btl) 1 drops LEFT EYE HS [facility] Last Admin: 01/12/23 21:58 Dose: 1 drops Levothyroxine Sodium (Levothyroxine 125 Mcg Tab) 125 mcg PO DAILY@0630 [facility] Last Admin: 01/13/23 06:00 Dose: 125 mcg Methylprednisolone Sodium Succinate (Methylprednisolone Sod Succi 125 Mg/2 Ml Vial) 60 mg IV Q6HR [facility] Last Admin: 01/13/23 13:20 Dose: 60 mg Metoprolol Tartrate (Metoprolol Tartrate 25 Mg Tab) 75 mg PO BID [facility] Last Admin: 01/13/23 10:44 Dose: Not Given Miscellaneous Information (Potassium Replacement Protocol 1 Each Misc) 1 each MISCELLANE DAILY PRN; Protocol PRN Reason: Per Protocol Miscellaneous Information (Potassium Replacement Protocol 1 Each Misc) 1 each MISCELLANE DAILY PRN; Protocol PRN Reason: Per Protocol Naloxone HCl (Naloxone 0.4 Mg/Ml 1 Ml Vial) 0.2 mg IVP Q2M PRN PRN Reason: Opioid Reversal Nicotine (Nicotine 21mg/24hr Patch) 1 patch TRANSDERM DAILY [facility] Last Admin: 01/13/23 10:35 Dose: 1 patch Olanzapine (Olanzapine 10 Mg Tab) 20 mg PO [facility] Last Admin: 01/12/23 21:57 Dose: 20 mg Pantoprazole Sodium (Pantoprazole 40 Mg Tablet) 40 mg PO DAILY [facility] Last Admin: 01/13/23 10:36 Dose: 40 mg Past medical history to include: COPD, hyperlipidemia, hypothyroid, bipolar, atrial fibrillation, bipolar, CHF, he had hernia Social history: Lives with sister Marifer, smokes a pack a day for many years, no alcohol Physical examination: VITAL SIGNS: 98.5, 52, 25, 126/85, 89% on the ventilator GENERAL:laying in bed, intubated EYES: Pupils equal. Conjunctiva normal. HEENT: External appearance of nose and ears normal, oral cavity grossly normal. Endotracheal tube NECK: JVD is able to assess; masses not palpable. HEART: First and second heart sounds are normal; edema present LUNGS: Respiratory rate increased; decreased breath sounds ABDOMEN: Soft, nontender, liver spleen not palpable, no masses palpable. PSYCH: Sedated MUSCULOSKELETAL:No Clubbing/cyanosis;muscles-grossly intact. Evidence of OA INVESTIGATIONS, reviewed in the clinical context: 01/13/2023: White count 7.19 globin 16.2 potassium 3.9 BUN 23 creatinine 1.03 troponin I 0.016 proBNP 1150 2-D echocardiogram: EF 45-50%. Right ventricle dilatation, right ventricular hy pertrophy 01/12/2023: White count 13.9 hemoglobin 16.2 platelets 123 potassium 3.7 creatinine 1.19 cortisol 22 TSH 0.548 White count 10.6 hemoglobin 16.4 platelets 153 potassium 3.1 BUN 24 creatinine 1.4 to AST 79 ALT 65 Procalcitonin 0.08 ABG: PH 7.18 pCO2 102 pO2 153 EKG tracing personally reviewed by me-normal sinus rhythm. Intraventricular block. Poor R-wave progression. Chest x-ray film personally reviewed by me-large hiatal hernia. Cardiomegaly. Venous prominence. Assessment and plan: -Acute hypoxic and hypercapnic respiratory failure secondary to COPD exacerbation and CHF exacerbation: Slow to respond Patient on ventilator assist. 70% FiO2 -Paroxysmal atrial fibrillation flutter, had an episode of rapid rate yesterday. Back in sinus rhythm Telemetry. Eliquis 5 mg twice a day. Lopressor 75 mg twice a day flecainide 50 mg twice a day -Possible seizure per neurology. On Keppra -Acute COPD exacerbation in a current smoker Albuterol 4 times a day.. IV Solu-Medrol. Nebulized Perforomist and Pulmicort, -Acute on Chronic congestive heart failure from systolic dysfunction EF 45-50%- Received IV Lasix -Hypothyroid Levothyroxine 125 g a day -Essential hypertension Currently blood pressure low -Cardiogenic shock: Slow to respond Patient on levo fed -NG tube feeding -Chronic nicotine dependence, cigarette smoker Nicotine patch -Bipolar disorder Zyprexa 20 mg daily at bedtime. -Full code IV propofol and Levo fed. Bronchodilators. Steroids. IV Keppra. Pending computed tomography scan EEG. Remains critical.
--- NOTE | 2023-01-13 16:08 | CT ---
EXAMINATION TYPE: CT brain wo con DATE OF EXAM: 01/13/2023 COMPARISON: 04/01/2022 HISTORY: AMS CT DLP: 1227.4 mGycm Automated exposure control for dose reduction was used. Images obtained of the brain with no contrast. Ventricles have normal size. There is no mass effect or midline shift. No sign of intracranial hemorr shobha. There is fairly normal aeration of the mastoid air cells. IMPRESSION: Negative CT scan of the brain. No change.
--- NOTE | 2023-01-13 17:50 | EEG ---
ELECTROENCEPHALOGRAM REPORT CLINICAL HISTORY: This is a 67-year-old gentleman with an episode of shaking and continues to have altered mental status. The video EEG is obtained to evaluate for seizure and epileptiform activity. RELEVANT MEDICATIONS: IV Keppra and propofol. EEG TYPE: A routine 21-channel EEG is performed with video using the 10/20 electrode placement system. DESCRIPTION: The patient is intubated on a ventilator. The background consists of [id number] voltage of 2 to 3 Hz nonrhythmic delta activity. On few instances, the patient has diffuse nonrhythmic theta activity. There was no physiological stage II sleep architecture. There is no focal slowing. INTERICTAL AND ICTAL: None. ACTIVATION PROCEDURE: Photic stimulation and hyperventilation are not performed. CLINICAL INTERPRETATION: This is an abnormal routine EEG. The background slowing is suggestive of severe encephalopathy. Otherwise, there is no focal slowing, epileptiform discharge, or seizure on the EEG. Clinical correlation is recommended. KASEY / JULY: [id number] /
[2023-01-13 18:46] LABS: Glucose,Whole Blood 101 mg/dL (70-110)
[2023-01-13] MEDS: LATANOPROST 0.005% OPHTH DROPS 2.5 ML BTL LEFT EYE SCH (21:21)
[2023-01-13] MEDS: OLANZapine 10 MG TAB PO SCH (21:21)
[2023-01-13 23:27] LABS: Glucose,Whole Blood 117 mg/dL (70-110)
[2023-01-14] MEDS: IPRATROPIUM 0.5 MG/2.5 ML NEBU INHALATION SCH ×7 (00:16→23:40)
[2023-01-14] MEDS: ALBUTEROL NEBULIZED 2.5 MG/3 ML INHALATION SCH ×7 (00:16→23:28)
[2023-01-14] MEDS: INSULIN ASPART (NovoLOG) 100 UNIT/ML VIAL SQ SCH ×4 (01:27→18:03)
[2023-01-14 04:59] LABS: Basophils # (A) 0.1 k/uL (0-0.2); Basophils % (A) 0 %; Eosinophils # (A) 0.1 k/uL (0-0.7); Eosinophils % (A) 0 %; HCT 48.1 % (39.0-53.0); HGB 15.1 gm/dL (13.0-17.5); Lymphocytes # (A) 0.6 k/uL (1.0-4.8); Lymphocytes % (A) 4 %; MCH 30.5 pg (25.0-35.0); MCHC 31.4 g/dL (31.0-37.0); MCV 97.2 fL (80.0-100.0); Monocytes # (A) 0.7 k/uL (0-1.0); Monocytes % (A) 5 %; Neutrophils # (A) 14.1 k/uL (1.3-7.7); Neutrophils % (A) 91 %; Platelet Count 160 k/uL (150-450); RBC 4.95 m/uL (4.30-5.90); RDW 14.4 % (11.5-15.5); WBC 15.6 k/uL (3.8-10.6)
[2023-01-14 05:12] LABS: Calcium 8.4 mg/dL (8.4-10.2); Potassium 4.3 mmol/L (3.5-5.1)
[2023-01-14 06:03] LABS: Glucose,Whole Blood 129 mg/dL (70-110)
[2023-01-14] MEDS: LEVOTHYROXINE 125 MCG TAB PO SCH (06:04)
[2023-01-14] MEDS: methylPREDNISolone SOD SUCCI 125 MG/2 ML VIAL IV SCH ×3 (06:04→18:49)
[2023-01-14 06:29] LABS: ABG Base Excess 11.6 mmol/L; ABG HCO3 36 mmol/L (21-25); ABG Oxygen Saturation 93.3 % (94-97); ABG PCO2 51 mmHg (35-45); ABG PH 7.45 (7.35-7.45); ABG PO2 68 mmHg (83-108); ABG TCO2 37 mmol/L (19-24); Allen Test Performed? Yes
--- NOTE | 2023-01-14 07:37 | XR ---
EXAMINATION TYPE: XR chest 1V DATE OF EXAM: 01/14/2023 6:09 AM COMPARISON: Chest radiograph from one day prior. TECHNIQUE: XR chest 1V Portable AP radiograph of the chest. CLINICAL INDICATION:Male, 67 years old with history of Vent; FINDINGS: Lungs/Pleura: Bibasilar atelectasis similar to prior given differences in inspiration. No pneumothora x. Small left pleural effusion. Pulmonary vascularity: Unremarkable. Heart/mediastinum: Cardiomediastinal silhouette is enlarged and stable. Musculoskeletal: No acute osseous pathology. Other findings: None Lines/Tubes: Endotracheal tube with distal tip 6.0cm above the preeti. Nasogastric tube with its distal tip and side-port projecting over the gastric lumen in a hiatal eliseo ia. Left internal jugular central venous catheter with distal tip at the cavoatrial junction. IMPRESSION: 1. Stable exam with bibasilar atelectasis with small left pleural effusion. 2. Stable support tubes.
[2023-01-14] MEDS: LACTATED RINGERS 1,000 ML IV SCH ×2 (07:55→16:43)
[2023-01-14] MEDS: FORMOTEROL FUMARATE 20 MCG/2 ML NEBU INHALATION SCH ×2 (07:55→19:49)
[2023-01-14] MEDS: BUDESONIDE 1 MG/2 ML NEBU INHALATION SCH ×2 (07:55→19:49)
[2023-01-14] MEDS: PANTOPRAZOLE 40 MG TABLET PO SCH (09:15)
[2023-01-14] MEDS: ASPIRIN 81 MG PO SCH (09:16)
[2023-01-14] MEDS: NICOTINE 21MG/24HR PATCH TRANSDERM SCH (09:16)
[2023-01-14] MEDS: GABAPENTIN 100 MG CAP PO SCH ×3 (09:16→20:43)
[2023-01-14] MEDS: APIXABAN 5 MG TAB PO SCH ×2 (09:16→20:42)
[2023-01-14] MEDS: AMIODARONE 200 MG TAB PO SCH ×2 (09:16→20:42)
[2023-01-14] MEDS: METOPROLOL TARTRATE 25 MG TAB PO SCH ×2 (09:17→20:42)
[2023-01-14] MEDS: CHLORHEXIDINE GLUCONATE 15 ML CUP MUCOUS MEM SCH ×2 (10:09→20:42)
--- NOTE | 2023-01-14 10:14 | P.PN ---
Subjective Progress Note Date: 01/14/23 The patient is a 67-year-old gentleman who we are asked to be seen in the intensive care unit for further cardiac evaluation. Currently the patient is intubated and he is on mechanical ventilation. The history was taken from the chart as well as from the nurse taking care of the patient. Apparently the patient presented to the emergency department with progressive dyspnea of unknown duration. He is known to have chronic obstructive pulmonary disease and also paroxysmal atrial fibrillation and cardiomyopathy. In the emergency department he was evaluated and during his stay he did have an episode of cardiopulmonary arrest with PEA. The downtime was about 5 minutes. Subsequently the patient was intubated and he was admitted to the intensive care unit. Currently he is on norepinephrine. He is in normal sinus mechanism. He was on flecainide. No indication that he was experiencing any symptoms of chest pain or chest discomfort before but he presented with increasing shortness of breath. He is known to have severe COPD and he is on oxygen at 3 L. The chest x-ray showed findings consistent with chronic disease/COPD. No troponin was performed. The rest of his discomfort overall appeared unremarkable. 01/13/2023 The patient was seen this morning. He continues to be intubated on mechanical ventilation. Currently there is a concern about an exit encephalopathy and he is in process computed tomography scan. He is now in sinus mechanism with sinus bradycardia. I'm going to DC amiodarone IV and start the patient on amiodarone by mouth 200 mg twice a day the Cardizem was stopped yesterday. Hold any anticoagulation at this point. Acute coronary syndrome was ruled out with 3 serial troponin came in to be unremarkable January 142022 The patient was seen this morning. He continues to be intubated on mechanical ventilation but he is off vasopressors was norepinephrine. Urine output has been better. He has been maintaining normal sinus mechanism and currently is currently on beta jazmin as well as he is on amiodarone and he is also on oral anticoagulation. He is also on flecainide. The last echo showed an EF between 45-50%. Assessment Cardiopulmonary arrest with PEA Known severe COPD/chronic hypoxic respiratory failure Paroxysmal atrial fibrillation Multiple comorbid conditions Plan Continue AV evin jazmin agents with amiodarone as well as metoprolol Continue oral anticoagulation Continue flecainide Continue monitoring the heart rhythm Follow-up with the patient Objective - Vital Signs Vital signs: Vital Signs Temp 98.6 F 01/14/23 08:00 Pulse 80 01/14/23 09:00 Resp 24 01/14/23 09:00 BP 106/71 01/14/23 09:00 Pulse Ox 93 L 01/14/23 09:00 FiO2 70 01/14/23 09:00 Intake & Output 01/13/23 01/14/23 01/14/23 18:59 06:59 18:59 Intake Total 2058.632 1490.165 452.785 Output Total 780 1255 250 Balance 1278.632 235.165 202.785 Intake: IV 990 915 255 Invasive Line 3 90 90 30 Lactated Ringers 1,000 ml 900 825 225 @ 75 mls/hr IV .[id number] [facility] Rx#:[id number] Intake, IV Titration 688.632 525.165 77.785 Amount Amiodarone 450 mg In 126.669 Dextrose 5% in Water 250 ml @ 0.5 MG/MIN 16.667 mls/hr IV .Q15H [facility] Rx#: [id number] Norepinephrine 4 mg In 508.000 214.574 29.325 Sodium Chloride 0.9% 250 ml @ 0.03 MCG/KG/MIN 12. 391 mls/hr IV .[id number] [facility] Rx#:[id number] propofoL 1,000 mg In 53.963 310.591 48.46 Empty Bag 1 bag @ 15 MCG/ KG/MIN 9.757 mls/hr IV . [id number] [facility] Rx#:[id number] Tube Feeding 380 50 120 Output: Urine 780 1255 250 Other: Voiding Method Indwelling Catheter Indwelling Catheter ABP, PAP, CO, CI - Last Documented Arterial Blood Pressure 101/60 - Labs CBC & Chem 7: 01/14/23 04:40 01/14/23 04:40 Labs: Abnormal Lab Results - Last 24 Hours (Table) 01/13/23 01/14/23 01/14/23 Range/Units 23:26 04:40 04:40 WBC 15.6 H (3.8-10.6) k/uL Neutrophils # 14.1 H (1.3-7.7) k/uL Lymphocytes # 0.6 L (1.0-4.8) k/uL ABG pCO2 (35-45) mmHg ABG pO2 (83-108) mmHg ABG HCO3 (21-25) mmol/L ABG Total CO2 (19-24) mmol/L ABG O2 Saturation (94-97) % Carbon Dioxide 38 H (22-30) mmol/L BUN 30 H (9-20) mg/dL Glucose 131 H (74-99) mg/dL POC Glucose (mg/dL) 117 H (70-110) mg/dL 01/14/23 01/14/23 Range/Units 06:01 06:25 WBC (3.8-10.6) k/uL Neutrophils # (1.3-7.7) k/uL Lymphocytes # (1.0-4.8) k/uL ABG pCO2 51 H (35-45) mmHg ABG pO2 68 L (83-108) mmHg ABG HCO3 36 H (21-25) mmol/L ABG Total CO2 37 H (19-24) mmol/L ABG O2 Saturation 93.3 L (94-97) % Carbon Dioxide (22-30) mmol/L BUN (9-20) mg/dL Glucose (74-99) mg/dL POC Glucose (mg/dL) 129 H (70-110) mg/dL Microbiology - Last 24 Hours (Table) 01/11/23 22:45 Gram Stain - Preliminary Sputum Sputum Culture - Preliminary
[2023-01-14] MEDS: FLECAINIDE 50 MG TAB PO SCH ×2 (10:20→21:08)
[2023-01-14] MEDS: PIPERACILLIN-TAZOBACTAM 3.375 GM in SODIUM CHLORIDE 0.9% 100 ML IVPB SCH ×2 (10:31→16:42)
[2023-01-14] MEDS: levETIRAcetam IV 750 MG in SODIUM CHLORIDE 0.9% 100 ML IVPB SCH ×2 (10:44→21:28)
--- NOTE | 2023-01-14 11:15 | P.PN ---
Subjective Progress Note Date: 01/14/23 This is 67-year-old male patient with a known history of atrial fibrillation anticoagulated with Eliquis, chronic obstructive pulmonary disease, oxygen dependent respiratory failure, hyperlipidemia, hypertension, hypothyroidism, bipolar disorder, chronic and ongoing tobacco dependence, marijuana use. He was brought into the emergency room yesterday by family around noontime for increasing shortness of breath and chest wall pain. The patient had been falling approximately 3 times in the past 3 weeks. He was quite short of breath and dyspneic with exertion. He was originally being admitted to the regular medical floor when prior to his transfer from the emergency department he developed a cardiac arrest requiring approximately 5 minutes of CPR including 3 A of epinephrine and 2 units Amps of bicarb. He was also having some nonsustained VT and was given amiodarone bolus. He was intubated and transferred to the intensive care unit. He is seen today in consultation. He is currently on the mechanical ventilator in assist control mode at a rate of 24, tidal out of 450, FiO2 80% and a PEEP of 5. Morning blood gases revealed a PaO2 of 97, pCO2 67, pH 7.35 on the 80% FiO2. His x-ray reveals persistent large hiatal hernia. Persistent bibasilar opacities. Echocardiogram revealed left ventricular systolic function with ejection fraction 45-50%. Sputum culture pending. White count 13.9. Hemoglobin 16.2. Platelets 123. Sodium 138. Potassium 3.7. Bicarb 38. BUN 20. Creatinine 1.19. Glucose 136. He is sedated with propofol at 40 mcg/kg/m. Requiring norepinephrine at 4.3 mcg/m. He's initiated on bronchodilators, IV Solu-Medrol. Anticoagulated with Eliquis. NicoDerm patch in place. The patient is seen today 01/13/2023 in follow-up in the intensive care unit. He remains intubated on mechanical ventilator in assist control at a rate of 24, tidal volume 450, FiO2 50% and a PEEP of 5. Morning blood gases revealed a pO2 of 66, pCO2 52, pH 7.44. He is sedated on propofol 20 mcg/kg/m. Norepinephrine at 15 mcg/m. Lactated Ringer's at 75 ML's per hour. He is being nourished with vital 8. Her rate of 30 with a goal of 60. He did have some issues with atrial fibrillation and is currently in sinus rhythm. Chest x-ray revealed stable bibasilar atelectasis with a small left effusion. Endotracheal and gastric tube secured in place. Left internal CVP line in place. Sputum cultures pending. White count 17.9. Hemoglobin 16.2. Platelets 159. Sodium 136. Potassium 3.9. Bicarb 35. BUN 23. Creatinine 1.03. Glucose 146. ProBNP 1150. Troponin 0.016. He is currently in a +2.5 L balance. He is maintained on albuterol inhalations, Pulmicort and Perforomist inhalations, IV Solu-Medrol. NicoDerm patch in place. Anticoagulated with Eliquis. The patient is seen today 01/14/2023 in follow-up in the intensive care unit. He remains intubated and on the mechanical ventilator. Currently in assist control mode at a rate of 24, tidal and 450, FiO2 70% and a PEEP of 10. Morning blood gases revealed a P O2 of 68, pCO2 51, pH 7.45. He is sedated on propofol at 20 mcg/kg/m. Lactated Ringer's at 75 ML's per hour. Currently the norepinephrine is off. He is receiving vital HP at 60 ML's per hour which is goal for nutritional support. Chest x-ray reveals stable bibasilar atelectasis with a small left effusion. DT scan of the brain was negative. No mass effect or midline shift. No intracranial hemorrhage. Sputum culture pending. Pro-calcitonin 0.08. White count 15.6. Hemoglobin 15.1. Sodium 139. Potassium 4.3. Bicarb 30. BUN 30. Creatinine 1.07. Glucose 131. Currently in a +1.5 L balance. He remains on Pulmicort and Perforomist inhalations, albuterol inhalations, IV Solu-Medrol. NicoDerm patch in place. Anticoagulated with Eliquis. Objective - Vital Signs Vital signs: Vital Signs Temp 98.6 F 01/14/23 08:00 Pulse 79 01/14/23 11:00 Resp 21 01/14/23 11:00 BP 105/70 01/14/23 11:00 Pulse Ox 93 L 01/14/23 11:00 FiO2 70 01/14/23 10:00 Intake & Output 01/13/23 01/14/23 01/14/23 18:59 06:59 18:59 Intake Total 2058.632 1490.165 722.785 Output Total 780 1255 350 Balance 1278.632 235.165 372.785 Intake: IV 990 915 405 Invasive Line 3 90 90 30 Lactated Ringers 1,000 ml 900 825 375 @ 75 mls/hr IV .[id number] [facility] Rx#:[id number] Intake, IV Titration 688.632 525.165 77.785 Amount Amiodarone 450 mg In 126.669 Dextrose 5% in Water 250 ml @ 0.5 MG/MIN 16.667 mls/hr IV .Q15H [facility] Rx#: [id number] Norepinephrine 4 mg In 508.000 214.574 29.325 Sodium Chloride 0.9% 250 ml @ 0.03 MCG/KG/MIN 12. 391 mls/hr IV .[id number] [facility] Rx#:[id number] propofoL 1,000 mg In 53.963 310.591 48.46 Empty Bag 1 bag @ 15 MCG/ KG/MIN 9.757 mls/hr IV . [id number] [facility] Rx#:[id number] Tube Feeding 380 50 240 Output: Urine 780 1255 350 Other: Voiding Method Indwelling Catheter Indwelling Catheter ABP, PAP, CO, CI - Last Documented Arterial Blood Pressure 93/58 - Exam GENERAL EXAM: Intubated, sedated 67-year-old male patient, on 70% FiO2 with a PEEP of 10 comfortable in no apparent distress. HEAD: Normocephalic. EYES: Normal reaction of pupils, equal size. NOSE: Clear with pink turbinates. THROAT: Oral endotracheal and gastric tube secured in place. No erythema or exudates. NECK: No masses, no JVD. CHEST: No chest wall deformity. LUNGS: Equal air entry with few scattered rhonchi. CVS: S1 and S2 normal with no audible murmur, regular rhythm. ABDOMEN: No hepatosplenomegaly, normal bowel sounds, no guarding or rigidity. SPINE: No scoliosis or deformity SKIN: No rashes CENTRAL NERVOUS SYSTEM: Sedated, tone is normal in all 4 extremities. EXTREMITIES: There is no peripheral edema. No clubbing, no cyanosis. Peripheral pulses are intact. - Labs CBC & Chem 7: 01/14/23 04:40 01/14/23 04:40 Labs: Abnormal Lab Results - Last 24 Hours (Table) 01/13/23 01/14/23 01/14/23 Range/Units 23:26 04:40 04:40 WBC 15.6 H (3.8-10.6) k/uL Neutrophils # 14.1 H (1.3-7.7) k/uL Lymphocytes # 0.6 L (1.0-4.8) k/uL ABG pCO2 (35-45) mmHg ABG pO2 (83-108) mmHg ABG HCO3 (21-25) mmol/L ABG Total CO2 (19-24) mmol/L ABG O2 Saturation (94-97) % Carbon Dioxide 38 H (22-30) mmol/L BUN 30 H (9-20) mg/dL Glucose 131 H (74-99) mg/dL POC Glucose (mg/dL) 117 H (70-110) mg/dL 01/14/23 01/14/23 Range/Units 06:01 06:25 WBC (3.8-10.6) k/uL Neutrophils # (1.3-7.7) k/uL Lymphocytes # (1.0-4.8) k/uL ABG pCO2 51 H (35-45) mmHg ABG pO2 68 L (83-108) mmHg ABG HCO3 36 H (21-25) mmol/L ABG Total CO2 37 H (19-24) mmol/L ABG O2 Saturation 93.3 L (94-97) % Carbon Dioxide (22-30) mmol/L BUN (9-20) mg/dL Glucose (74-99) mg/dL POC Glucose (mg/dL) 129 H (70-110) mg/dL Microbiology - Last 24 Hours (Table) 01/11/23 22:45 Gram Stain - Preliminary Sputum Sputum Culture - Preliminary Assessment and Plan Assessment: In-hospital cardiac arrest requiring CPR and subsequent return of spontaneous circulation within approximately 5 minutes Acute hypoxemic respiratory failure secondary to above requiring intubation and mechanical ventilatory support on 01/11/2023 Hypotension requiring pressor support, currently improved and off norepinephrine History of oxygen dependent chronic obstructive pulmonary disease Chronic and ongoing tobacco dependence Chronic atrial fibrillation, anticoagulated with Eliquis History of hypertension Hyperlipidemia Hypothyroidism History of bipolar disorder History of anxiety/depression History of marijuana use Plan: The patient was seen and evaluated Chest x-ray, ABGs, labs and medications reviewed Continue the current vent settings Add empiric Zosyn Wean down the FiO2 as tolerated Continue bronchodilators, IV Solu-Medrol NicoDerm patch in place We will continue to follow and make further recommendations based on his c linical status I have personally seen and examined the patient, performed the documentation and the assessment and plan as written. Number of minutes spent on the visit: 15.
--- NOTE | 2023-01-14 11:27 | P.PN ---
Subjective Progress Note Date: 01/14/23 The patient is seen at bedside and he continues to be intubated on vent. He is on IV Propofol 20mcg/kg/min. No further seizures reported. Objective - Vital Signs Vital signs: Vital Signs Temp 98.6 F 01/14/23 08:00 Pulse 79 01/14/23 11:00 Resp 21 01/14/23 11:00 BP 105/70 01/14/23 11:00 Pulse Ox 93 L 01/14/23 11:00 FiO2 70 01/14/23 11:12 Intake & Output 01/13/23 01/14/23 01/14/23 18:59 06:59 18:59 Intake Total 2058.632 1490.165 722.785 Output Total 780 1255 350 Balance 1278.632 235.165 372.785 Intake: IV 990 915 405 Invasive Line 3 90 90 30 Lactated Ringers 1,000 ml 900 825 375 @ 75 mls/hr IV .[id number] [facility] Rx#:[id number] Intake, IV Titration 688.632 525.165 77.785 Amount Amiodarone 450 mg In 126.669 Dextrose 5% in Water 250 ml @ 0.5 MG/MIN 16.667 mls/hr IV .Q15H [facility] Rx#: [id number] Norepinephrine 4 mg In 508.000 214.574 29.325 Sodium Chloride 0.9% 250 ml @ 0.03 MCG/KG/MIN 12. 391 mls/hr IV .[id number] [facility] Rx#:[id number] propofoL 1,000 mg In 53.963 310.591 48.46 Empty Bag 1 bag @ 15 MCG/ KG/MIN 9.757 mls/hr IV . [id number] [facility] Rx#:[id number] Tube Feeding 380 50 240 Output: Urine 780 1255 350 Other: Voiding Method Indwelling Catheter Indwelling Catheter ABP, PAP, CO, CI - Last Documented Arterial Blood Pressure 93/58 - Exam GENERAL: The patient is lying in bed and does not appear in acute distress. LUNG: Intubated on Vent NEUROLOGICAL: Limited since is on IV Propofol 20mcg/kg/min. Higher mental function: Comatose GCS 3 (E1, VT1, M1). Cranial nerves: The pupils are round, pinpoint but with suction it was dilated to 3mm and reactive to light. No facial weakness. Is breathing over the vent. Has positive very weak Gag reflex. Otherwise no other brainstem reflex. Motor: The strength is not withrawaling to any extremities to painful stimuli. No jerking or twitching of any extremities. Normal tone and bulk. Cerebellum: Unable to assess. Sensation: Unable to assess light touch and no movement to painful stimuli. Reflexes (right/left): 1+ throughout. Plantars are mute bilaterally. Some other workup during the hospital visit consisted of Initial ABGs of pH is 7.18 predominantly hypercapnic. PH has normalized but the pCO2 was 67 bicarbonate is 37 Initial creatinine is 1.56 but it's trending down sodium on presentation 132 but it's improved magnesium is normal AST most recent 79 ALT 65 TSH is 0.548 2D echo was reported as poor quality study left ventricle size is normal there is mild global decrease in contractility noted. Endocardial margins are poorly seen. Occult contrast was not used. There is mild mitral annular calcification and aortic sclerosis. Sinus rhythm with first-degree AV block with frequent suburban ventricular premature complex. Possible left atrial enlargement. Possible right ventricular hypertrophy. Ammonia level is 30 (normal is <30). EEG: Is abnormal. The background slowing is suggestive of severe encephalopathy. Otherwise no focal slowing, epitleptiform discharge or seizure on the EEG. CT head is reported as negative. No change. I personally reviewed CT head and agree no acute or subacute ischemia, no hemorrhage appreciated. - Labs CBC & Chem 7: 01/14/23 04:40 01/14/23 04:40 Labs: Abnormal Lab Results - Last 24 Hours (Table) 01/13/23 01/14/23 01/14/23 Range/Units 23:26 04:40 04:40 WBC 15.6 H (3.8-10.6) k/uL Neutrophils # 14.1 H (1.3-7.7) k/uL Lymphocytes # 0.6 L (1.0-4.8) k/uL ABG pCO2 (35-45) mmHg ABG pO2 (83-108) mmHg ABG HCO3 (21-25) mmol/L ABG Total CO2 (19-24) mmol/L ABG O2 Saturation (94-97) % Carbon Dioxide 38 H (22-30) mmol/L BUN 30 H (9-20) mg/dL Glucose 131 H (74-99) mg/dL POC Glucose (mg/dL) 117 H (70-110) mg/dL 01/14/23 01/14/23 Range/Units 06:01 06:25 WBC (3.8-10.6) k/uL Neutrophils # (1.3-7.7) k/uL Lymphocytes # (1.0-4.8) k/uL ABG pCO2 51 H (35-45) mmHg ABG pO2 68 L (83-108) mmHg ABG HCO3 36 H (21-25) mmol/L ABG Total CO2 37 H (19-24) mmol/L ABG O2 Saturation 93.3 L (94-97) % Carbon Dioxide (22-30) mmol/L BUN (9-20) mg/dL Glucose (74-99) mg/dL POC Glucose (mg/dL) 129 H (70-110) mg/dL Microbiology - Last 24 Hours (Table) 01/11/23 22:45 Gram Stain - Preliminary Sputum Sputum Culture - Preliminary Assessment and Plan Assessment: This is a 67-year-old gentleman who presented because of the severe shortness of breath and dyspnea. In the emergency department she had that cardiopulmonary. Cardiopulmonary arrest (reported rhythm was VT) requiring 5 minute CPR Altered mental status seems due to anoxic encephalopathy due to above. component of metabolic encephalopathy and Medication induced (IV Propofol). EEG is negative for seizure or discharge and CT head is negative. Probable Seizure due to his cardiopulmonary arrest (reported had shaking of all extremities, unequal pupils and tongue bite)--resolved with 2mg Ativan Cardiogenic shock on Norepi Severe shortness of breath with dyspnea eventually work on to be intubated and the on a ventilator after the cardiopulmonary arrest Acute kidney injury--resolved History of Atrial fibrillation on eliquis Seem to the patient has a history of possible stroke behind the left eye Of hypertension Hyperlipidemia Hypothyroidism Nicotine dependence Plan: Continue Keppra 750mg every 12 hours for seizure. Every hour neuro checks Please avoid any hypotensive episode His ammonia level is 30 and normal is <30. Will defer management to primary team. We'll defer the rest of the medical management to primary team Condition is critical The plan is discussed with his ICU nurse. Dr. Clement will start neurology service tomorrow A.M. Time with Patient: Less than 30
[2023-01-14 12:03] LABS: Glucose,Whole Blood 123 mg/dL (70-110)
--- NOTE | 2023-01-14 16:03 | P.PN ---
Progress Note - Text Progress Note Date: 01/14/23 Chief Complaint: Shortness of breath, chest pain This is a 67-year-old patient who follows with Dr. Alvin Villela. Chronic stable medical conditions include hyperlipidemia, hypothyroid, bipolar, atrial fibrillation. Patient is a smoker. COPD, CHF, bipolar, hiatal hernia Patient presented to the ER, brought in by the family because of shortness of breath and chest pain. In the last 3 weeks apparently patient fallen about 3 times. No fever no chills. Some palpitations. Increasing lower extremity edema. Nonproductive cough. Late in the afternoon patient was found to be in PEA. Code team was called. Patient did require epinephrine. intubated. FiO2 100 and PEEP of 5. Patient have a broad complex tachycardia. Commissioning Editor Dr. Steve was informed. Admitted with acute COPD exacerbation, acute CHF exacerbation, acute hypoxic hypercapnic respiratory failure. Intubated. 01/12/2023: ICU. Drips include IV propofol, Levophed. Patient sedated. Telemetry shows sinus rhythm. FiO2 70 to PEEP of 5. Patient seen by veterinary radiologist Dr. Valdes. IV Lasix has been discontinued. IV fluids. 01/13/2023: ICU. Intubated. FiO2 70 PEEP of 10. Drips include propofol and norepinephrine. 2 feeding at 40 mL an hour. Patient went into A. fib with rapid ventricle rate yesterday. Was put on IV Cardizem and IV amiodarone. Went back into sinus rhythm. There was some concern about neuro status change for which neurology was consulted, pending computed tomography scan. No focal weakness. His started on IV Keppra per neurology 01/14/2023: ICU. Intubated. FiO2 70 PEEP of 10. Patient is off levo fed since this morning. On IV propofol. OG tube for feeding at 60 mL an hour. Significant secretions checks x-ray showing infiltrate. His started on IV Zosyn. and daughter the bedside. Discussed. Eliquis. Cordarone. IV Solu-Medrol. IV Keppra. Active Medications Acetaminophen (Acetaminophen Tab 325 Mg Tab) 650 mg PO Q4HR PRN PRN Reason: Mild Pain or Fever > 100.5 Albuterol Sulfate (Albuterol Nebulized 2.5 Mg/3 Ml) 2.5 mg INHALATION RT-Q4H [facility] Last Admin: 01/14/23 15:12 Dose: 2.5 mg Amiodarone HCl (Amiodarone 200 Mg Tab) 200 mg PO BID [facility] Last Admin: 01/14/23 09:16 Dose: 200 mg Apixaban (Apixaban 5 Mg Tab) 5 mg PO BID [facility]; Protocol Last Admin: 01/14/23 09:16 Dose: 5 mg Aspirin (Aspirin 81 Mg) 81 mg PO DAILY [facility] Last Admin: 01/14/23 09:16 Dose: 81 mg Budesonide (Budesonide 1 Mg/2 Ml Nebu) 1 mg INHALATION RT-BID [facility] Last Admin: 01/14/23 07:55 Dose: 1 mg Chlorhexidine Gluconate (Chlorhexidine Gluconate 15 Ml Cup) 15 ml MUCOUS MEM BID [facility] Last Admin: 01/14/23 10:09 Dose: 15 ml Flecainide Acetate (Flecainide 50 Mg Tab) 50 mg PO BID [facility] Last Admin: 01/14/23 10:20 Dose: 50 mg Formoterol Fumarate (Formoterol Fumarate 20 Mcg/2 Ml Nebu) 20 mcg INHALATION RT-BID [facility] Last Admin: 01/14/23 07:55 Dose: 20 mcg Gabapentin (Gabapentin 100 Mg Cap) 200 mg PO TID [facility] Last Admin: 01/14/23 09:16 Dose: 200 mg Hydromorphone HCl (Hydromorphone 1 Mg/Ml 1 Ml Syringe) 1 mg IVP Q4HR PRN PRN Reason: Pain/Discomfort Propofol 1,000 mg/ IV Solution 100 mls @ 9.757 mls/hr IV .[id number] [facility]; Protocol Last Titration: 01/14/23 09:14 Dose: 20 mcg/kg/min, 13.009 mls/hr Norepinephrine Bitartrate 4 mg (/ Sodium Chloride) 254 mls @ 12.391 mls/hr IV .[id number] [facility]; Protocol Last Titration: 01/14/23 08:30 Dose: 0 mcg/kg/min, 0 mls/hr Lactated Ringer's (Lactated Ringers) 1,000 mls @ 75 mls/hr IV .[id number] [facility] Last Admin: 01/14/23 07:55 Dose: Not Given Levetiracetam 750 mg/ Sodium (Chloride) 107.5 mls @ 400 mls/hr IVPB Q12HR [facility] Last Admin: 01/14/23 10:44 Dose: 400 mls/hr Piperacillin Sod/Tazobactam (Sod 3.375 gm/ Sodium Chloride) 100 mls @ 25 mls/hr IVPB Q8HR [facility]; Protocol Last Admin: 01/14/23 10:31 Dose: 25 mls/hr Insulin Aspart (Insulin Aspart (Novolog) 100 Unit/Ml Vial) 0 unit SQ Q6HR [facility]; Protocol Last Admin: 01/14/23 12:43 Dose: Not Given Ipratropium Henderson (Ipratropium 0.5 Mg/2.5 Ml Nebu) 0.5 mg INHALATION RT-Q4H [facility] Last Admin: 01/14/23 15:12 Dose: 0.5 mg Latanoprost (Latanoprost 0.005% Ophth Drops 2.5 Ml Btl) 1 drops LEFT [facility] Last Admin: 01/13/23 21:21 Dose: 1 drops Levothyroxine Sodium (Levothyroxine 125 Mcg Tab) 125 mcg PO DAILY@0630 [facility] Last Admin: 01/14/23 06:04 Dose: 125 mcg Methylprednisolone Sodium Succinate (Methylprednisolone Sod Succi 125 Mg/2 Ml Vial) 60 mg IV Q6HR [facility] Last Admin: 01/14/23 12:47 Dose: 60 mg Metoprolol Tartrate (Metoprolol Tartrate 25 Mg Tab) 75 mg PO BID [facility] Last Admin: 01/14/23 09:17 Dose: 75 mg Miscellaneous Information (Potassium Replacement Protocol 1 Each Misc) 1 each MISCELLANE DAILY PRN; Protocol PRN Reason: Per Protocol Miscellaneous Information (Potassium Replacement Protocol 1 Each Misc) 1 each MISCELLANE DAILY PRN; Protocol PRN Reason: Per Protocol Naloxone HCl (Naloxone 0.4 Mg/Ml 1 Ml Vial) 0.2 mg IVP Q2M PRN PRN Reason: Opioid Reversal Nicotine (Nicotine 21mg/24hr Patch) 1 patch TRANSDERM DAILY [facility] Last Admin: 01/14/23 09:16 Dose: 1 patch Olanzapine (Olanzapine 10 Mg Tab) 20 mg PO HS [facility] Last Admin: 01/13/23 21:21 Dose: 20 mg Pantoprazole Sodium (Pantoprazole 40 Mg Tablet) 40 mg PO DAILY [facility] Last Admin: 01/14/23 09:15 Dose: 40 mg Past medical history to include: COPD, hyperlipidemia, hypothyroid, bipolar, atrial fibrillation, bipolar, CHF, he had hernia Social history: Lives with sister Marifer, smokes a pack a day for many years, no alcohol Physical examination: VITAL SIGNS: 98.6, 79, 25, 10 5 x 70, 93% on the vent GENERAL:laying in bed, intubated EYES: Pupils equal. Conjunctiva normal. HEENT: External appearance of nose and ears normal, oral cavity grossly normal. Endotracheal tube. OG tube NECK: JVD is able to assess; masses not palpable. HEART: First and second heart sounds are normal; edema present LUNGS: Respiratory rate increased; decreased breath sounds ABDOMEN: Soft, nontender, liver spleen not palpable, no masses palpable. PSYCH: Sedated MUSCULOSKELETAL:No Clubbing/cyanosis;muscles-grossly intact. Evidence of OA INVESTIGATIONS, reviewed in the clinical context: EEG: Encephalopathy. No seizure activity. 01/14/2023: White count 15.6 hemoglobin 15.1 platelets 160 potassium 4.3 BUN 30 creatinine 1.07 01/13/2023: White count 7.19 globin 16.2 potassium 3.9 BUN 23 creatinine 1.03 troponin I 0.016 proBNP 1150 2-D echocardiogram: EF 45-50%. Right ventricle dilatation, right ventricular hypertrophy 01/12/2023: White count 13.9 hemoglobin 16.2 platelets 123 potassium 3.7 creatinine 1.19 cortisol 22 TSH 0.548 White count 10.6 hemoglobin 16.4 platelets 153 potassium 3.1 BUN 24 creatinine 1.4 to AST 79 ALT 65 Procalcitonin 0.08 ABG: PH 7.18 pCO2 102 pO2 153 EKG tracing personally reviewed by me-normal sinus rhythm. Intraventricular block. Poor R-wave progression. Chest x-ray film personally reviewed by me-large hiatal hernia. Cardiomegaly. Venous prominence. Assessment and plan: -Acute hypoxic and hypercapnic respiratory failure secondary to COPD exacerbation and CHF exacerbation: Slow to respond Patient on ventilator assist. 70% FiO2 -Paroxysmal atrial fibrillation flutter, had an episode of rapid rate - Back in sinus rhythm Telemetry. Eliquis 5 mg twice a day. Lopressor 75 mg twice a day flecainide 50 mg twice a day -Possible seizure per neurology. On Keppra. EEG negative for seizure activity -Possible aspiration pneumonia IV Zosyn started -Acute COPD exacerbation in a current smoker Albuterol 4 times a day.. IV Solu-Medrol. Nebulized Perforomist and Pulmicort, -Acute on Chronic congestive heart failure from systolic dysfunction EF 45-50%- Received IV Lasix -Hypothyroid Levothyroxine 125 g a day -Essential hypertension Currently blood pressure low -Cardiogenic shock: Currently off levo fed -NG tube feeding -Chronic nicotine dependence, cigarette smoker Nicotine patch -Bipolar disorder Zyprexa 20 mg daily at bedtime. -Full code IV propofol . Levo fed stop this morning.. Bronchodilators. Steroids. IV Keppra. IV Zosyn added for possible pneumonia.
[2023-01-14 18:03] LABS: Glucose,Whole Blood 134 mg/dL (70-110)
[2023-01-14] MEDS: LATANOPROST 0.005% OPHTH DROPS 2.5 ML BTL LEFT EYE SCH (20:50)
[2023-01-14] MEDS: OLANZapine 10 MG TAB PO SCH (21:07)
[2023-01-14 23:33] LABS: Glucose,Whole Blood 102 mg/dL (70-110)
[2023-01-15] MEDS: INSULIN ASPART (NovoLOG) 100 UNIT/ML VIAL SQ SCH ×4 (00:27→17:45)
[2023-01-15] MEDS: methylPREDNISolone SOD SUCCI 125 MG/2 ML VIAL IV SCH ×2 (01:02→06:39)
[2023-01-15] MEDS: PIPERACILLIN-TAZOBACTAM 3.375 GM in SODIUM CHLORIDE 0.9% 100 ML IVPB SCH ×3 (01:02→15:35)
[2023-01-15] MEDS: IPRATROPIUM 0.5 MG/2.5 ML NEBU INHALATION SCH ×6 (03:14→23:17)
[2023-01-15] MEDS: ALBUTEROL NEBULIZED 2.5 MG/3 ML INHALATION SCH ×6 (03:14→23:17)
[2023-01-15] MEDS: LACTATED RINGERS 1,000 ML IV SCH (05:11)
[2023-01-15 05:26] LABS: Basophils % (A) 0 %; Eosinophils % (A) 0 %; HGB 14.9 gm/dL (13.0-17.5); Lymphocytes # (A) 0.5 k/uL (1.0-4.8); Lymphocytes % (A) 4 %; MCH 30.6 pg (25.0-35.0); MCHC 31.6 g/dL (31.0-37.0); MCV 96.7 fL (80.0-100.0); Mean Platelet Volume 11.1; Monocytes # (A) 0.5 k/uL (0-1.0); Monocytes % (A) 5 %; Neutrophils # (A) 10.3 k/uL (1.3-7.7); Neutrophils % (A) 90 %; Platelet Count 139 k/uL (150-450); RBC 4.86 m/uL (4.30-5.90); RDW 14.5 % (11.5-15.5); WBC 11.4 k/uL (3.8-10.6)
[2023-01-15 06:06] LABS: ABG Base Excess 13.2 mmol/L; ABG HCO3 38 mmol/L (21-25); ABG Oxygen Saturation 94.7 % (94-97); ABG PCO2 61 mmHg (35-45); ABG PO2 80 mmHg (83-108); ABG TCO2 40 mmol/L (19-24); Allen Test Performed? Yes
[2023-01-15 06:09] LABS: African American GFR (CKD) >90 (>60 ml/min/1.73 sqM); Blood Urea Nitrogen 39 mg/dL (9-20); Calcium 8.3 mg/dL (8.4-10.2); Glucose 128 mg/dL (74-99); Non-African American GFR(CKD) 84 (>60 ml/min/1.73 sqM); Sodium 139 mmol/L (137-145)
[2023-01-15 06:16] LABS: Carbon Dioxide 37 mmol/L (22-30)
[2023-01-15] MEDS: LEVOTHYROXINE 125 MCG TAB PO SCH (06:39)
[2023-01-15 07:01] LABS: Anion Gap 2 mmol/L; Chloride 100 mmol/L (98-107); Potassium 4.5 mmol/L (3.5-5.1)
--- NOTE | 2023-01-15 07:34 | XR ---
EXAMINATION TYPE: XR chest 1V portable DATE OF EXAM: 01/15/2023 5:43 AM COMPARISON: Chest radiographs from 01/14/2023 TECHNIQUE: XR chest 1V portable Portable AP radiograph of the chest. CLINICAL INDICATION:Male, 67 years old with history of Pt on vent; FINDINGS: Lungs/Pleura: Similar bibasilar airspace opacities. Probable left pleural effusion. No pneumothorax. Pulmonary vascularity: Unremarkable. Heart/mediastinum: Cardiomediastinal silhouette is unremarkable. Persistent hiatal hernia. Musculoskeletal: No acute osseous pathology. Other findings: None Lines/Tubes: Endotracheal tube with distal tip 6.7 cm above the preeti. Nasogastric tube with its distal tip and side-port projecting under the gastric lumen in the area of hernia. Left internal jugular central venous catheter with distal tip at the cavoatrial junction. IMPRESSION: 1. Similar multifocal airspace opacities. 2. Stable support lines and tubes.
[2023-01-15] MEDS: CHLORHEXIDINE GLUCONATE 15 ML CUP MUCOUS MEM SCH ×2 (08:09→20:31)
[2023-01-15] MEDS: GABAPENTIN 100 MG CAP PO SCH ×3 (08:09→21:00)
[2023-01-15] MEDS: APIXABAN 5 MG TAB PO SCH ×2 (08:09→20:32)
[2023-01-15] MEDS: PANTOPRAZOLE 40 MG TABLET PO SCH (08:10)
[2023-01-15] MEDS: AMIODARONE 200 MG TAB PO SCH ×2 (08:10→20:32)
[2023-01-15] MEDS: ASPIRIN 81 MG PO SCH (08:10)
[2023-01-15] MEDS: METOPROLOL TARTRATE 25 MG TAB PO SCH ×2 (08:13→20:32)
[2023-01-15] MEDS: levETIRAcetam IV 750 MG in SODIUM CHLORIDE 0.9% 100 ML IVPB SCH ×2 (08:13→20:53)
[2023-01-15] MEDS: FORMOTEROL FUMARATE 20 MCG/2 ML NEBU INHALATION SCH ×2 (08:15→19:35)
[2023-01-15] MEDS: BUDESONIDE 1 MG/2 ML NEBU INHALATION SCH ×2 (08:15→19:35)
[2023-01-15] MEDS: FLECAINIDE 50 MG TAB PO SCH (08:21)
[2023-01-15] MEDS: NICOTINE 21MG/24HR PATCH TRANSDERM SCH (08:22)
--- NOTE | 2023-01-15 08:36 | P.PN ---
Subjective Progress Note Date: 01/15/23 PROGRESS NOTE The patient is a 67-year-old male with known history of atrial fibrillation, anticoagulated, chronic obstructive lung disease, marijuana use, bipolar disorder, hypertension and hyperlipidemia who presented with worsening dyspnea. He had a cardiac arrest with nonsustained VT, he was intubated and transferred to the ICU. His echocardiogram was reported showing an ejection fraction of 45-50%. The patient remains intubated and sedated, off norepinephrine. Hemodynamically he is stable. His urinary output is stable. There is no evidence of ventricular tachycardia. Medications: Amiodarone 200 mg twice a day, aspirin once a day, metoprolol 75 mg twice a day, levothyroxine, methylprednisolone, flecainide,Eliquis 5 mg twice a day PHYSICAL EXAMINATION: Blood pressure 156/80 heart rate 70, intubated and sedated LUNGS: Clear to auscultation HEART: Regular rate and rhythm, S1, S2. No S3. systolic ejection murmur ABDOMEN: Soft, nontender, no organomegaly EXTREMETIES: +1 edema LAB: Hemoglobin 14.9, pH 7.4, pO2 80, pCO2 61. Potassium 4.5. BUN 39, creatinine 0.95. IMPRESSION: 1. Cardiac arrest with respiratory failure, no evidence of acute coronary syndrome 2. History of atrial fibrillation, anticoagulated 3. History of COPD and chronic tobacco use 4. History of hypertension PLAN: 1. Stop flecainide 2. Continue amiodarone 3. Ventilator management per pulmonary 4. Follow her renal functions 5. If renal function stable and blood pressure elevated add PANTERA inhibitor 6. Depending on his progress further recommendations will be made Objective - Vital Signs Vital signs: Vital Signs Temp 98.4 F 01/15/23 04:00 Pulse 75 01/15/23 08:15 Resp 26 H 01/15/23 08:15 BP 101/68 01/15/23 04:00 Pulse Ox 94 L 01/15/23 07:00 FiO2 70 01/15/23 08:14 Intake & Output 01/14/23 01/15/23 01/15/23 18:59 06:59 18:59 Intake Total 1390.221 8896.977 165 Output Total 970 1030 150 Balance 848.622 8379.977 15 Weight 122 kg Intake: IV 990 1065 75 Invasive Line 3 90 90 Lactated Ringers 1,000 ml 900 975 75 @ 75 mls/hr IV .[id number] [facility] Rx#:[id number] Intake, IV Titration 229.325 259.977 Amount Norepinephrine 4 mg In 29.325 10.101 Sodium Chloride 0.9% 250 ml @ 0.03 MCG/KG/MIN 12. 391 mls/hr IV .[id number] [facility] Rx#:[id number] Piperacillin-Tazobactam 3 100 .375 gm In Sodium Chloride 0.9% 100 ml @ 25 mls/hr IVPB Q8HR [facility] Rx# :[id number] propofoL 1,000 mg In 100.00 249.876 Empty Bag 1 bag @ 15 MCG/ KG/MIN 9.757 mls/hr IV . [id number] [facility] Rx#:[id number] Tube Feeding 480 780 60 Other 30 Output: Urine 970 1030 150 Other: Voiding Method Indwelling Catheter Indwelling Catheter ABP, PAP, CO, CI - Last Documented Arterial Blood Pressure 156/84 - Labs CBC & Chem 7: 01/15/23 05:00 01/15/23 05:00 Labs: Abnormal Lab Results - Last 24 Hours (Table) 01/14/23 01/14/23 01/15/23 Range/Units 12:01 18:00 05:00 WBC (3.8-10.6) k/uL Plt Count (150-450) k/uL Neutrophils # (1.3-7.7) k/uL Lymphocytes # (1.0-4.8) k/uL ABG pCO2 (35-45) mmHg ABG pO2 (83-108) mmHg ABG HCO3 (21-25) mmol/L ABG Total CO2 (19-24) mmol/L Carbon Dioxide 37 H (22-30) mmol/L BUN 39 H (9-20) mg/dL Glucose 128 H (74-99) mg/dL POC Glucose (mg/dL) 123 H 134 H (70-110) mg/dL Calcium 8.3 L (8.4-10.2) mg/dL 01/15/23 01/15/23 Range/Units 05:00 05:30 WBC 11.4 H (3.8-10.6) k/uL Plt Count 139 L (150-450) k/uL Neutrophils # 10.3 H (1.3-7.7) k/uL Lymphocytes # 0.5 L (1.0-4.8) k/uL ABG pCO2 61 H (35-45) mmHg ABG pO2 80 L (83-108) mmHg ABG HCO3 38 H (21-25) mmol/L ABG Total CO2 40 H (19-24) mmol/L Carbon Dioxide (22-30) mmol/L BUN (9-20) mg/dL Glucose (74-99) mg/dL POC Glucose (mg/dL) (70-110) mg/dL Calcium (8.4-10.2) mg/dL Microbiology - Last 24 Hours (Table) 01/11/23 22:45 Gram Stain - Preliminary Sputum Sputum Culture - Preliminary Gram Neg Bacilli
--- NOTE | 2023-01-15 08:50 | P.PN ---
Subjective Progress Note Date: 01/15/23 67-year-old male patient was being seen on follow-up on 01/15/2023. The patient is currently intubated on a mechanical ventilator. The patient is known to have COPD and chronic hypoxic respiratory failure in addition to multiple comorbidities including atrial fibrillation, hypertension, hypothyroidism, bipolar disorder and is a chronic smoker. He came into the emergency department because of worsening shortness of breath. In the ED, the patient a cardiac arrest for approximately 5 minutes and he was resuscitated after being given epinephrine 3 and bicarb. He did encounter some nonsustained VT and he was given amiodarone. Following that, he was transferred to the intensive care unit. He did encounter some seizure activity following his cardiac arrest. This morning, the patient remains on propofol which is running at 40 mcg/kg/m. His calm and comfortable and symptoms of mechanical ventilator. He remains on assist-control mode of mechanical ventilation at the rate of 24, tidal volume of 450, FiO2 of 70% and a PEEP of 10. Chest x-ray showing bilateral lower lobe effusion/consolidation. The ET tube needs to be adjusted and pushed him by another 1 cm.. No significant orotracheal secretions at this point in time. The patient does have multifocal airspace disease mainly in the lower lobes. The patient has a blood gas that shows a pH of 7.4 with a pCO2 of 61 and pO2 of 80. His peak airway pressure is 26 on the mechanical ventilator. He is on IV fluids and currently is on lactated Ringer at the rate of 75 mL an hour. His WBC count is at 11.4 with a hemoglobin of 14.9 and a platelet count of 139. Sodium is at 139 with a potassium level of 4.5, bicarb is at 37 BUN is at 39 with a creatinine of 0.9. His proBNP level at time of admission was 1590 and it gradually dropped. His sputum is positive for gram-negative bacillus and the patient is currently on IV Zosyn. His cardiac rhythm is currently sinus. He is on amiodarone 200 mg by mouth twice a day, and flecainide 50 mg by mouth twice a day. He has been also on long-term anticoagulation with Eliquis. He remains on bronchodilators. He remains on IV Solu-Medrol. Antibiotic coverage with IV Zosyn. He was started on IV Keppra regarding his seizure activity. Neurology is on the case. EEG was done on 01/13/2023 and it showed severe encephalopathy. No seizure activity was noted otherwise. His echocardiogram that was done on 01/12/2023 showed poor LV function which was in the order of ejection fraction of 45%. There was evidence of RV dilatation. There was evidence of RV hypertrophy. There was normal RV function. There is also grade 1 diastolic dysfunction. The patient is also on vital high-protein which is running at 60 mL an hour and is having and encountering high residuals. CAT scan of the brain was essentially negative. Objective - Vital Signs Vital signs: Vital Signs Temp 98.4 F 01/15/23 04:00 Pulse 70 01/15/23 08:29 Resp 28 H 01/15/23 08:29 BP 101/68 01/15/23 04:00 Pulse Ox 95 01/15/23 08:28 FiO2 70 01/15/23 08:28 Intake & Output 01/14/23 01/15/23 01/15/23 18:59 06:59 18:59 Intake Total 3969.898 4732.977 165 Output Total 970 1030 150 Balance 794.175 9577.977 15 Weight 122 kg Intake: IV 990 1065 75 Invasive Line 3 90 90 Lactated Ringers 1,000 ml 900 975 75 @ 75 mls/hr IV .[id number] [facility] Rx#:[id number] Intake, IV Titration 229.325 259.977 Amount Norepinephrine 4 mg In 29.325 10.101 Sodium Chloride 0.9% 250 ml @ 0.03 MCG/KG/MIN 12. 391 mls/hr IV .[id number] [facility] Rx#:[id number] Piperacillin-Tazobactam 3 100 .375 gm In Sodium Chloride 0.9% 100 ml @ 25 mls/hr IVPB Q8HR [facility] Rx# :[id number] propofoL 1,000 mg In 100.00 249.876 Empty Bag 1 bag @ 15 MCG/ KG/MIN 9.757 mls/hr IV . [id number] [facility] Rx#:[id number] Tube Feeding 480 780 60 Other 30 Output: Urine 970 1030 150 Other: Voiding Method Indwelling Catheter Indwelling Catheter ABP, PAP, CO, CI - Last Documented Arterial Blood Pressure 156/84 - Exam GENERAL EXAM: Intubated, sedated 67-year-old male patient, on 70% FiO2 with a PEEP of 10 comfortable in no apparent distress. HEAD: Normocephalic. EYES: Normal reaction of pupils, equal size. NOSE: Clear with pink turbinates. THROAT: Oral endotracheal and gastric tube secured in place. No erythema or exudates. NECK: No masses, no JVD. CHEST: No chest wall deformity. LUNGS: Equal air entry with few scattered rhonchi. CVS: S1 and S2 normal with no audible murmur, regular rhythm. ABDOMEN: No hepatosplenomegaly, normal bowel sounds, no guarding or rigidity. SPINE: No scoliosis or deformity SKIN: No rashes CENTRAL NERVOUS SYSTEM: Sedated, tone is normal in all 4 extremities. EXTREMITIES: There is no peripheral edema. No clubbing, no cyanosis. Peripheral pulses are intact. - Labs CBC & Chem 7: 01/15/23 05:00 01/15/23 05:00 Labs: Abnormal Lab Results - Last 24 Hours (Table) 01/14/23 01/14/23 01/15/23 Range/Units 12:01 18:00 05:00 WBC (3.8-10.6) k/uL Plt Count (150-450) k/uL Neutrophils # (1.3-7.7) k/uL Lymphocytes # (1.0-4.8) k/uL ABG pCO2 (35-45) mmHg ABG pO2 (83-108) mmHg ABG HCO3 (21-25) mmol/L ABG Total CO2 (19-24) mmol/L Carbon Dioxide 37 H (22-30) mmol/L BUN 39 H (9-20) mg/dL Glucose 128 H (74-99) mg/dL POC Glucose (mg/dL) 123 H 134 H (70-110) mg/dL Calcium 8.3 L (8.4-10.2) mg/dL 01/15/23 01/15/23 Range/Units 05:00 05:30 WBC 11.4 H (3.8-10.6) k/uL Plt Count 139 L (150-450) k/uL Neutrophils # 10.3 H (1.3-7.7) k/uL Lymphocytes # 0.5 L (1.0-4.8) k/uL ABG pCO2 61 H (35-45) mmHg ABG pO2 80 L (83-108) mmHg ABG HCO3 38 H (21-25) mmol/L ABG Total CO2 40 H (19-24) mmol/L Carbon Dioxide (22-30) mmol/L BUN (9-20) mg/dL Glucose (74-99) mg/dL POC Glucose (mg/dL) (70-110) mg/dL Calcium (8.4-10.2) mg/dL Microbiology - Last 24 Hours (Table) 01/11/23 22:45 Gram Stain - Preliminary Sputum Sputum Culture - Preliminary Gram Neg Bacilli Assessment and Plan Plan: In-hospital cardiac arrest requiring CPR and subsequent return of spontaneous circulation within approximately 5 minutes the patient was given epinephrine, bicarb and the patient also had a episode of VT, given amiodarone. It is likely that this started off with a respiratory arrest and following that the patient had a cardiac arrest/asystole. Encephalopathy post cardiac arrest and the patient is currently on propofol Acute hypoxemic respiratory failure secondary to above requiring intubation and mechanical ventilatory support on 01/11/2023 Acute bilateral pneumonia with multifocal by the pulmonary infiltrates and sputum indicating gram-negative bacillus and the patient is currently on IV Zosyn. Chronic systolic heart failure with an ejection fraction of 45% Left lower lobe airspace disease as noted on the initial CAT scan of the chest Large hiatal hernia as noted on the initial CAT scan of the chest Acute COPD exacerbation on top of chronic COPD secondary to above Hypotension requiring pressor support, currently improved and off norepinephrine History of oxygen dependent chronic obstructive pulmonary disease Chronic and ongoing tobacco dependence Chronic atrial fibrillation, anticoagulated with Eliquis, maintain on a combination of flecainide and amiodarone and the patient's current cardiac rhythm is sinus History of hypertension Hyperlipidemia Hypothyroidism History of bipolar disorder History of anxiety/depression History of marijuana use Plan: Sedation holiday and assess the patient's mental status. No plans for extubation. However it's reasonable to evaluate his underlying mental status. Continue IV Keppra and EEG showed no seizure activity Continue ventilator support, gradually wean down his FiO2 as tolerated to maintain a saturation above 90%. The patient has gram-negative bacillus in his sputum. This is most likely an underlying pneumonia. Initial chest x-ray showed a left lung pneumonia and the patient is currently on IV Zosyn and this will be continued IV fluids to KVO Change IV Solu-Medrol to 40 mg every 12 hours Ordered Lasix 40 milligrams IV every 12 hours Continue bronchodilators and systemic steroids Monitor enteral feeding as the patient is having increased residuals Continue same cardiac medications Condition is critical and we'll continue to follow make further recommendations based on his progress. This evaluation was done in more than 30 minutes. Time with Patient: Greater than 30
[2023-01-15] MEDS: methylPREDNISolone SOD SUCCI 40 MG/ML 1 ML VIAL IV SCH ×2 (09:57→20:31)
[2023-01-15] MEDS: FUROSEMIDE 10 MG/ML 2 ML VIAL IV SCH ×2 (09:57→20:31)
[2023-01-15] MEDS: DOCUSATE ORAL SOLN 100 MG/10 ML CUP PO SCH ×2 (09:57→20:31)
[2023-01-15] MEDS: LACTATED RINGERS 500 ML IV SCH (09:58)
[2023-01-15 11:25] LABS: Glucose,Whole Blood 117 mg/dL (70-110)
--- NOTE | 2023-01-15 12:13 | XR ---
EXAMINATION TYPE: XR chest 1V portable DATE OF EXAM: 01/15/2023 COMPARISON: The sixth 2022 at 5:14 AM HISTORY: G-tube adjustment. TECHNIQUE: Single frontal view of the chest is obtained. IMPRESSION: There are bibasilar opacities are seen compared to the previous examination with likely left pleural effusion. Right basilar atelectasis versus airspace disease. The cardiac silhouette is moderately enlarged and the pulmonary vessels appear to be within normal li mits. Endotracheal tube and left internal jugular central catheter unchanged. The NG tube tip is within the left lower hemithorax which is likely within a large hiatal hernia and in the stomach given the appearance of the CT chest, abdomen and pelvis on 01/11/2023. Confirmation can be made by injecting contrast through the tube.
--- NOTE | 2023-01-15 16:08 | P.PN ---
Progress Note - Text Progress Note Date: 01/15/23 Chief Complaint: Shortness of breath, chest pain This is a 67-year-old patient who follows with Dr. Alvin Villela. Chronic stable medical conditions include hyperlipidemia, hypothyroid, bipolar, atrial fibrillation. Patient is a smoker. COPD, CHF, bipolar, hiatal hernia Patient presented to the ER, brought in by the family because of shortness of breath and chest pain. In the last 3 weeks apparently patient fallen about 3 times. No fever no chills. Some palpitations. Increasing lower extremity edema. Nonproductive cough. Late in the afternoon patient was found to be in PEA. Code team was called. Patient did require epinephrine. intubated. FiO2 100 and PEEP of 5. Patient have a broad complex tachycardia. Special Education Administrator Dr. Steve was informed. Admitted with acute COPD exacerbation, acute CHF exacerbation, acute hypoxic hypercapnic respiratory failure. Intubated. 01/12/2023: ICU. Drips include IV propofol, Levophed. Patient sedated. Telemetry shows sinus rhythm. FiO2 70 to PEEP of 5. Patient seen by floorworker lasting Dr. Valdes. IV Lasix has been discontinued. IV fluids. 01/13/2023: ICU. Intubated. FiO2 70 PEEP of 10. Drips include propofol and norepinephrine. 2 feeding at 40 mL an hour. Patient went into A. fib with rapid ventricle rate yesterday. Was put on IV Cardizem and IV amiodarone. Went back into sinus rhythm. There was some concern about neuro status change for which neurology was consulted, pending computed tomography scan. No focal weakness. His started on IV Keppra per neurology 01/14/2023: ICU. Intubated. FiO2 70 PEEP of 10. Patient is off levo fed since this morning. On IV propofol. OG tube for feeding at 60 mL an hour. Significant secretions checks x-ray showing infiltrate. His started on IV Zosyn. and daughter the bedside. Discussed. Eliquis. Cordarone. IV Solu-Medrol. IV Keppra. 01/15/2023: ICU. Intubated. FiO2 70 PEEP of 10. 2 feeding. Telemetry sinus rhythm. OG tube feeding. Patient has remained off levo fed. IV Zosyn. IV Keppra. Active Medications Acetaminophen (Acetaminophen Tab 325 Mg Tab) 650 mg PO Q4HR PRN PRN Reason: Mild Pain or Fever > 100.5 Albuterol Sulfate (Albuterol Nebulized 2.5 Mg/3 Ml) 2.5 mg INHALATION RT-Q4H REPLACED BY [facility] Last Admin: 01/15/23 15:57 Dose: 2.5 mg Amiodarone HCl (Amiodarone 200 Mg Tab) 200 mg PO BID REPLACED BY [facility] Last Admin: 01/15/23 08:10 Dose: 200 mg Apixaban (Apixaban 5 Mg Tab) 5 mg PO BID REPLACED BY [facility]; Protocol Last Admin: 01/15/23 08:09 Dose: 5 mg Aspirin (Aspirin 81 Mg) 81 mg PO DAILY REPLACED BY [facility] Last Admin: 01/15/23 08:10 Dose: 81 mg Budesonide (Budesonide 1 Mg/2 Ml Nebu) 1 mg INHALATION RT-BID REPLACED BY [facility] Last Admin: 01/15/23 08:15 Dose: 1 mg Chlorhexidine Gluconate (Chlorhexidine Gluconate 15 Ml Cup) 15 ml MUCOUS MEM BID REPLACED BY [facility] Last Admin: 01/15/23 08:09 Dose: 15 ml Docusate Sodium (Docusate Oral Soln 100 Mg/10 Ml Cup) 100 mg PO BID REPLACED BY [facility] Last Admin: 01/15/23 09:57 Dose: 100 mg Formoterol Fumarate (Formoterol Fumarate 20 Mcg/2 Ml Nebu) 20 mcg INHALATION RT-BID REPLACED BY [facility] Last Admin: 01/15/23 08:15 Dose: 20 mcg Furosemide (Furosemide 10 Mg/Ml 2 Ml Vial) 20 mg IV Q12HR REPLACED BY [facility] Last Admin: 01/15/23 09:57 Dose: 20 mg Gabapentin (Gabapentin 100 Mg Cap) 200 mg PO TID REPLACED BY [facility] Last Admin: 01/15/23 15:18 Dose: 200 mg Hydromorphone HCl (Hydromorphone 1 Mg/Ml 1 Ml Syringe) 1 mg IVP Q4HR PRN PRN Reason: Pain/Discomfort Propofol 1,000 mg/ IV Solution 100 mls @ 9.757 mls/hr IV .[id number] REPLACED BY [facility]; Protocol Last Titration: 01/15/23 15:10 Dose: 30 mcg/kg/min, 19.514 mls/hr Norepinephrine Bitartrate 4 mg (/ Sodium Chloride) 254 mls @ 12.391 mls/hr IV .[id number] REPLACED BY [facility]; Protocol Last Titration: 01/15/23 06:00 Dose: Infused Levetiracetam 750 mg/ Sodium (Chloride) 107.5 mls @ 400 mls/hr IVPB Q12HR REPLACED BY [facility] Last Admin: 01/15/23 08:13 Dose: 400 mls/hr Piperacillin Sod/Tazobactam (Sod 3.375 gm/ Sodium Chloride) 100 mls @ 25 mls/hr IVPB Q8HR REPLACED BY [facility]; Protocol Last Admin: 01/15/23 15:35 Dose: 25 mls/hr Lactated Ringer's (Lactated Ringers) 500 mls @ 20 mls/hr IV .Q24H REPLACED BY [facility] Last Admin: 01/15/23 09:58 Dose: 20 mls/hr Insulin Aspart (Insulin Aspart (Novolog) 100 Unit/Ml Vial) 0 unit SQ Q6HR REPLACED BY [facility]; Protocol Last Admin: 01/15/23 11:30 Dose: Not Given Ipratropium Barker (Ipratropium 0.5 Mg/2.5 Ml Nebu) 0.5 mg INHALATION RT-Q4H REPLACED BY [facility] Last Admin: 01/15/23 15:58 Dose: 0.5 mg Latanoprost (Latanoprost 0.005% Ophth Drops 2.5 Ml Btl) 1 drops LEFT EYE HS REPLACED BY [facility] Last Admin: 01/14/23 20:50 Dose: 1 drops Levothyroxine Sodium (Levothyroxine 125 Mcg Tab) 125 mcg PO DAILY@0630 REPLACED BY [facility] Last Admin: 01/15/23 06:39 Dose: 125 mcg Methylprednisolone Sodium Succinate (Methylprednisolone Sod Succi 40 Mg/Ml 1 Ml Vial) 40 mg IV Q12HR REPLACED BY [facility] Last Admin: 01/15/23 09:57 Dose: 40 mg Metoprolol Tartrate (Metoprolol Tartrate 25 Mg Tab) 75 mg PO BID REPLACED BY [facility] Last Admin: 01/15/23 08:13 Dose: 75 mg Miscellaneous Information (Potassium Replacement Protocol 1 Each Misc) 1 each MISCELLANE DAILY PRN; Protocol PRN Reason: Per Protocol Miscellaneous Information (Potassium Replacement Protocol 1 Each Misc) 1 each MISCELLANE DAILY PRN; Protocol PRN Reason: Per Protocol Naloxone HCl (Naloxone 0.4 Mg/Ml 1 Ml Vial) 0.2 mg IVP Q2M PRN PRN Reason: Opioid Reversal Nicotine (Nicotine 21mg/24hr Patch) 1 patch TRANSDERM DAILY REPLACED BY [facility] Last Admin: 01/15/23 08:22 Dose: 1 patch Olanzapine (Olanzapine 10 Mg Tab) 20 mg PO HS REPLACED BY [facility] Last Admin: 01/14/23 21:07 Dose: 20 mg Pantoprazole Sodium (Pantoprazole 40 Mg Tablet) 40 mg PO DAILY REPLACED BY [facility] Last Admin: 01/15/23 08:10 Dose: 40 mg Past medical history to include: COPD, hyperlipidemia, hypothyroid, bipolar, atrial fibrillation, bipolar, CHF, he had hernia Social history: Lives with sister Marifer, smokes a pack a day for many years, no alcohol Physical examination: VITAL SIGNS: 98.8, 75, 27, 140/99, 95% on ventilator GENERAL:laying in bed, intubated EYES: Pupils equal. Conjunctiva normal. HEENT: External appearance of nose and ears normal, oral cavity grossly normal. Endotracheal tube. OG tube NECK: JVD is able to assess; masses not palpable. HEART: First and second heart sounds are normal; edema present LUNGS: Respiratory rate increased; decreased breath sounds ABDOMEN: Soft, nontender, liver spleen not palpable, no masses palpable. PSYCH: Sedated MUSCULOSKELETAL:No Clubbing/cyanosis;muscles-grossly intact. Evidence of OA INVESTIGATIONS, reviewed in the clinical context: 01/15/2023: White count 11.4 hemoglobin 14.9 platelets 139 potassium 4.5 creatinine 0.95 EEG: Encephalopathy. No seizure activity. 01/14/2023: White count 15.6 hemoglobin 15.1 platelets 160 potassium 4.3 BUN 30 creatinine 1.07 01/13/2023: White count 7.19 globin 16.2 potassium 3.9 BUN 23 creatinine 1.03 troponin I 0.016 proBNP 1150 2-D echocardiogram: EF 45-50%. Right ventricle dilatation, right ventricular hypertrophy 01/12/2023: White count 13.9 hemoglobin 16.2 platelets 123 potassium 3.7 creatinine 1.19 cortisol 22 TSH 0.548 White count 10.6 hemoglobin 16.4 platelets 153 potassium 3.1 BUN 24 creatinine 1.4 to AST 79 ALT 65 Procalcitonin 0.08 ABG: PH 7.18 pCO2 102 pO2 153 EKG tracing personally reviewed by me-normal sinus rhythm. Intraventricular block. Poor R-wave progression. Chest x-ray film personally reviewed by me-large hiatal hernia. Cardiomegaly. Venous prominence. Assessment and plan: -Acute hypoxic and hypercapnic respiratory failure secondary to COPD exacerbation and CHF exacerbation: Slow to respond Patient on ventilator assist. 70% FiO2 -Paroxysmal atrial fibrillation flutter, had an episode of rapid rate - Back in sinus rhythm Telemetry. Eliquis 5 mg twice a day. Lopressor 75 mg twice a day flecainide-discontinued. Cordarone. -Possible seizure per neurology. On Keppra. EEG negative for seizure activity -Possible aspiration pneumonia IV Zosyn -Acute COPD exacerbation in a current smoker Albuterol 4 times a day.. IV Solu-Medrol. Nebulized Perforomist and Pulmicort, -Acute on Chronic congestive heart failure from systolic dysfunction EF 45-50%- Received IV Lasix -Hypothyroid Levothyroxine 125 g a day -Essential hypertension Currently blood pressure low -Cardiogenic shock: Taken off off levo fed -NG tube feeding -Chronic nicotine dependence, cigarette smoker Nicotine patch -Bipolar disorder Zyprexa 20 mg daily at bedtime. -Full code IV propofol . .. Bronchodilators. Steroids. IV Keppra. IV Zosyn eliquis. Amiodarone.
[2023-01-15 17:44] LABS: Glucose,Whole Blood 126 mg/dL (70-110)
[2023-01-15] MEDS: OLANZapine 10 MG TAB PO SCH (20:31)
[2023-01-15] MEDS: LATANOPROST 0.005% OPHTH DROPS 2.5 ML BTL LEFT EYE SCH (20:33)
[2023-01-15] MEDS: METOCLOPRAMIDE ORAL SOLN 10 MG/10 ML CUP PO SCH (21:00)
[2023-01-15 23:30] LABS: Glucose,Whole Blood 105 mg/dL (70-110)
[2023-01-16] MEDS: INSULIN ASPART (NovoLOG) 100 UNIT/ML VIAL SQ SCH ×5 (00:27→23:47)
[2023-01-16] MEDS: PIPERACILLIN-TAZOBACTAM 3.375 GM in SODIUM CHLORIDE 0.9% 100 ML IVPB SCH ×3 (00:35→15:36)
[2023-01-16] MEDS: IPRATROPIUM 0.5 MG/2.5 ML NEBU INHALATION SCH ×5 (03:18→20:04)
[2023-01-16] MEDS: ALBUTEROL NEBULIZED 2.5 MG/3 ML INHALATION SCH ×5 (03:18→20:04)
[2023-01-16 04:24] LABS: Basophils % (A) 0 %; Eosinophils # (A) 0.1 k/uL (0-0.7); Eosinophils % (A) 1 %; HCT 50.1 % (39.0-53.0); HGB 15.1 gm/dL (13.0-17.5); Hypochromasia Slight; Lymphocytes # (A) 0.5 k/uL (1.0-4.8); Lymphocytes % (A) 5 %; MCH 30.3 pg (25.0-35.0); MCHC 30.2 g/dL (31.0-37.0); MCV 100.3 fL (80.0-100.0); Macrocytosis Slight; Mean Platelet Volume 10.5; Monocytes # (A) 0.9 k/uL (0-1.0); Monocytes % (A) 9 %; Neutrophils # (A) 8.3 k/uL (1.3-7.7); Neutrophils % (A) 84 %; Platelet Count 137 k/uL (150-450); RBC 4.99 m/uL (4.30-5.90); RDW 13.8 % (11.5-15.5); WBC 9.9 k/uL (3.8-10.6)
[2023-01-16 04:40] LABS: Calcium 8.3 mg/dL (8.4-10.2); Potassium 4.8 mmol/L (3.5-5.1)
[2023-01-16 05:48] LABS: ABG Base Excess 15.1 mmol/L; ABG Oxygen Saturation 93.8 % (94-97); ABG PCO2 64 mmHg (35-45); ABG PO2 76 mmHg (83-108); ABG TCO2 42 mmol/L (19-24); Allen Test Performed? Yes
[2023-01-16 05:51] LABS: ABG HCO3 40 mmol/L (21-25)
[2023-01-16 06:05] LABS: Glucose,Whole Blood 105 mg/dL (70-110)
[2023-01-16] MEDS: LEVOTHYROXINE 125 MCG TAB PO SCH (06:06)
[2023-01-16] MEDS: NOREPINEPHRINE 4 MG in SODIUM CHLORIDE 0.9% 250 ML IV SCH (06:08)
--- NOTE | 2023-01-16 07:43 | P.PN ---
Subjective Progress Note Date: 01/16/23 PROGRESS NOTE The patient is a 67-year-old male with known history of atrial fibrillation, anticoagulated, chronic obstructive lung disease, marijuana use, bipolar disorder, hypertension and hyperlipidemia who presented with worsening dyspnea. He had a cardiac arrest with nonsustained VT, he was intubated and transferred to the ICU. His echocardiogram was reported showing an ejection fraction of 45-50%. The patient remains intubated and sedated, off norepinephrine. Hemodynamically he is stable. His urinary output is stable. There is no evidence of ventricular tachycardia. January 16: The patient remains intubated and sedated. Hemodynamically stable. He has no evidence of ventricular ectopic activity. He has evidence of respiratory failure with bilateral pneumonia. His urinary output is good. He has a prior history of COPD. He has mild cardiomyopathy on the echocardiogram. There is a history of paroxysmal atrial fibrillation, on amiodarone. His flecainide has been stopped. He is in sinus mechanism at this time. Medications: Amiodarone 200 mg twice a day, aspirin once a day, metoprolol 75 mg twice a day, levothyroxine, methylprednisolone, Eliquis 5 mg twice a day, Lasix 20 mg IV every 12 hours PHYSICAL EXAMINATION: Blood pressure 146/81 heart rate 60, intubated and sedated LUNGS: Clear to auscultation anteriorly HEART: Regular rate and rhythm, S1, S2. No S3. systolic ejection murmur ABDOMEN: Soft, positive bowel sounds, no organomegaly EXTREMETIES: +1 edema LAB: Hemoglobin 15.1, potassium 4.8, BUN 47, creatinine 1.13 IMPRESSION: 1. Cardiac arrest with respiratory failure, no evidence of acute coronary syndrome, cardiac arrest most likely secondary to the respiratory failure and the pneumonia 2. History of atrial fibrillation, anticoagulated 3. History of COPD and chronic tobacco use 4. History of hypertension PLAN: 1. Add PANTERA inhibitor 2. Continue beta jazmin, amiodarone and anticoagulation 3. Follow renal functions 4. Depending on his progress further recommendations will be made Objective - Vital Signs Vital signs: Vital Signs Temp 98.8 F 01/16/23 04:00 Pulse 62 01/16/23 07:00 Resp 25 H 01/16/23 07:00 BP 118/76 01/16/23 07:00 Pulse Ox 97 01/16/23 07:00 FiO2 60 01/16/23 07:00 Intake & Output 01/15/23 01/16/23 01/16/23 18:59 06:59 18:59 Intake Total 3455.056 9250.110 50 Output Total 1730 1750 75 Balance -579.092 -511.890 -25 Weight 122 kg 119.3 kg Intake: IV 150 395 20 Lactated Ringers 1,000 ml 150 @ 75 mls/hr IV .[id number] [facility] Rx#:[id number] Lactated Ringers 500 ml @ 220 20 20 mls/hr IV .Q24H [facility] Rx#:[id number] Piperacillin-Tazobactam 3 75 .375 gm In Sodium Chloride 0.9% 100 ml @ 25 mls/hr IVPB Q8HR [facility] Rx# :[id number] levETIRAcetam IV 750 mg 100 In Sodium Chloride 0.9% 100 ml @ 400 mls/hr IVPB Q12HR [facility] Rx#:[id number] Intake, IV Titration 520.908 323.110 Amount Lactated Ringers 500 ml @ 180 20 20 mls/hr IV .Q24H [facility] Rx#:[id number] Piperacillin-Tazobactam 3 150 .375 gm In Sodium Chloride 0.9% 100 ml @ 25 mls/hr IVPB Q8HR [facility] Rx# :[id number] propofoL 1,000 mg In 190.908 303.110 Empty Bag 1 bag @ 15 MCG/ KG/MIN 9.757 mls/hr IV . [id number] [facility] Rx#:[id number] Tube Feeding 420 360 30 Other 60 160 Output: Urine 1730 1750 75 Other: Voiding Method Indwelling Catheter Indwelling Catheter ABP, PAP, CO, CI - Last Documented Arterial Blood Pressure 146/81 - Labs CBC & Chem 7: 01/16/23 04:10 01/16/23 04:10 Labs: Abnormal Lab Results - Last 24 Hours (Table) 01/15/23 01/15/23 01/16/23 Range/Units 11:20 17:40 04:10 MCV (80.0-100.0) fL MCHC (31.0-37.0) g/dL Plt Count (150-450) k/uL Neutrophils # (1.3-7.7) k/uL Lymphocytes # (1.0-4.8) k/uL ABG pCO2 (35-45) mmHg ABG pO2 (83-108) mmHg ABG HCO3 (21-25) mmol/L ABG Total CO2 (19-24) mmol/L ABG O2 Saturation (94-97) % Carbon Dioxide 39 H (22-30) mmol/L BUN 47 H (9-20) mg/dL Glucose 119 H (74-99) mg/dL POC Glucose (mg/dL) 117 H 126 H (70-110) mg/dL Calcium 8.3 L (8.4-10.2) mg/dL 01/16/23 01/16/23 Range/Units 04:10 05:38 MCV 100.3 H (80.0-100.0) fL MCHC 30.2 L (31.0-37.0) g/dL Plt Count 137 L (150-450) k/uL Neutrophils # 8.3 H (1.3-7.7) k/uL Lymphocytes # 0.5 L (1.0-4.8) k/uL ABG pCO2 64 H (35-45) mmHg ABG pO2 76 L (83-108) mmHg ABG HCO3 40 H* (21-25) mmol/L ABG Total CO2 42 H (19-24) mmol/L ABG O2 Saturation 93.8 L (94-97) % Carbon Dioxide (22-30) mmol/L BUN (9-20) mg/dL Glucose (74-99) mg/dL POC Glucose (mg/dL) (70-110) mg/dL Calcium (8.4-10.2) mg/dL Microbiology - Last 24 Hours (Table) 01/11/23 22:45 Gram Stain - Final Sputum Sputum Culture - Final Citrobacter koseri
--- NOTE | 2023-01-16 07:58 | XR ---
EXAMINATION TYPE: XR chest 1V portable DATE OF EXAM: 01/16/2023 6:19 AM COMPARISON: Chest radiographs from 01/15/2023 TECHNIQUE: XR chest 1V portable Portable AP radiograph of the chest. CLINICAL INDICATION:Male, 67 years old with history of assess lungs; FINDINGS: Lungs/Pleura: Bibasilar atelectasis. No evidence for pneumothorax, pleural effusion or focal consolid ation. Pulmonary vascularity: Unremarkable. Heart/mediastinum: Cardiomediastinal silhouette is unremarkable. Atherosclerotic calcifications are seen in the aorta. Musculoskeletal: No acute osseous pathology. Other findings: None Lines/Tubes: Endotracheal tube with distal tip 6.9 cm above the preeti. Nasogastric tube with its distal tip and side-port projecting over the hiatal gastric lumen in a hiat al hernia. Left internal jugular central venous catheter with distal tip at the cavoatrial junction. IMPRESSION: 1. Bibasilar atelectasis. No evidence focal consolidation.. 2. Stable support lines and tubes.
[2023-01-16] MEDS: FORMOTEROL FUMARATE 20 MCG/2 ML NEBU INHALATION SCH ×2 (08:26→20:04)
[2023-01-16] MEDS: BUDESONIDE 1 MG/2 ML NEBU INHALATION SCH ×2 (08:26→20:04)
[2023-01-16] MEDS: NICOTINE 21MG/24HR PATCH TRANSDERM SCH (08:53)
[2023-01-16] MEDS: METOCLOPRAMIDE ORAL SOLN 10 MG/10 ML CUP PO SCH ×3 (08:55→21:03)
[2023-01-16] MEDS: methylPREDNISolone SOD SUCCI 40 MG/ML 1 ML VIAL IV SCH ×2 (08:55→20:22)
[2023-01-16] MEDS: FUROSEMIDE 10 MG/ML 2 ML VIAL IV SCH ×2 (08:55→20:22)
[2023-01-16] MEDS: CHLORHEXIDINE GLUCONATE 15 ML CUP MUCOUS MEM SCH ×2 (08:55→20:22)
[2023-01-16] MEDS: DOCUSATE ORAL SOLN 100 MG/10 ML CUP PO SCH ×2 (08:55→20:22)
[2023-01-16] MEDS: AMIODARONE 200 MG TAB PO SCH ×2 (09:03→20:22)
[2023-01-16] MEDS: GABAPENTIN 100 MG CAP PO SCH ×3 (09:03→21:04)
[2023-01-16] MEDS: APIXABAN 5 MG TAB PO SCH ×2 (09:03→20:22)
[2023-01-16] MEDS: ASPIRIN 81 MG PO SCH (09:03)
[2023-01-16] MEDS: METOPROLOL TARTRATE 25 MG TAB PO SCH ×2 (09:04→20:22)
[2023-01-16] MEDS: PANTOPRAZOLE 40 MG TABLET PO SCH (09:04)
--- NOTE | 2023-01-16 09:19 | P.PN ---
Subjective Progress Note Date: 01/16/23 67-year-old male patient was being seen on follow-up on 01/15/2023. The patient is currently intubated on a mechanical ventilator. The patient is known to have COPD and chronic hypoxic respiratory failure in addition to multiple comorbidities including atrial fibrillation, hypertension, hypothyroidism, bipolar disorder and is a chronic smoker. He came into the emergency department because of worsening shortness of breath. In the ED, the patient a cardiac arrest for approximately 5 minutes and he was resuscitated after being given epinephrine 3 and bicarb. He did encounter some nonsustained VT and he was given amiodarone. Following that, he was transferred to the intensive care unit. He did encounter some seizure activity following his cardiac arrest. This morning, the patient remains on propofol which is running at 40 mcg/kg/m. His calm and comfortable and symptoms of mechanical ventilator. He remains on assist-control mode of mechanical ventilation at the rate of 24, tidal volume of 450, FiO2 of 70% and a PEEP of 10. Chest x-ray showing bilateral lower lobe effusion/consolidation. The ET tube needs to be adjusted and pushed him by another 1 cm.. No significant orotracheal secretions at this point in time. The patient does have multifocal airspace disease mainly in the lower lobes. The patient has a blood gas that shows a pH of 7.4 with a pCO2 of 61 and pO2 of 80. His peak airway pressure is 26 on the mechanical ventilator. He is on IV fluids and currently is on lactated Ringer at the rate of 75 mL an hour. His WBC count is at 11.4 with a hemoglobin of 14.9 and a platelet count of 139. Sodium is at 139 with a potassium level of 4.5, bicarb is at 37 BUN is at 39 with a creatinine of 0.9. His proBNP level at time of admission was 1590 and it gradually dropped. His sputum is positive for gram-negative bacillus and the patient is currently on IV Zosyn. His cardiac rhythm is currently sinus. He is on amiodarone 200 mg by mouth twice a day, and flecainide 50 mg by mouth twice a day. He has been also on long-term anticoagulation with Eliquis. He remains on bronchodilators. He remains on IV Solu-Medrol. Antibiotic coverage with IV Zosyn. He was started on IV Keppra regarding his seizure activity. Neurology is on the case. EEG was done on 01/13/2023 and it showed severe encephalopathy. No seizure activity was noted otherwise. His echocardiogram that was done on 01/12/2023 showed poor LV function which was in the order of ejection fraction of 45%. There was evidence of RV dilatation. There was evidence of RV hypertrophy. There was normal RV function. There is also grade 1 diastolic dysfunction. The patient is also on vital high-protein which is running at 60 mL an hour and is having and encountering high residuals. CAT scan of the brain was essentially negative. On today's evaluation of 01/16/2023, the patient is being seen in follow-up. The patient remains intubated on a mechanical ventilator. There is a case of pneumonia with respiratory failure and subsequent cardiac arrest. This morning, the patient is still on propofol which is running at 25 mcg/kg/m. Noted the patient was given a sedation holiday yesterday. He did not fully recover. He became restless and agitated and asynchronous a mechanical ventilator. He was not following any commands. The holiday was aborted and the patient was placed back on propofol. The same will be done today. He remains on a mechanical ventilator. Assist-control mode at the rate of 24, tidal volume of 450, FiO2 of 60% with a PEEP of 10. PH is at 7.4 with a pCO2 of 64 and pO2 of 76. Chest x- ray showing a large hiatal hernia. The patient has bibasilar atelectasis and infiltrates, essentially unchanged compared to yesterday. The sputum is positive for Citrobacter and the patient is currently covered with IV Zosyn which is appropriate for the time being. No significant orotracheal secretions. The patient is also on Ventolin about treatments [id number], is also on a combination of Pulmicort and Perforomist nebulized treatments. He is receiving IV Solu-Medrol at a dose of 40 mg every 12 hours. I wean the Solu-Medrol yesterday the patient is less bronchospastic and wheezy as is recovering from an acute COPD exacerbation. Hemodynamically, the patient is in normal sinus rhythm. The patient is hemodynamically stable on no pressors. The patient r emains on Lasix 20 mg IV every 12 hours. The patient has been in negative fluid balance of 1 L over the past 24 hours. As such, diuretics will be continued. BUN is at 47 with a creatinine of 1.1 and sodium level is at 141. The WBC count is at 9.9 with a hemoglobin of 15 and a platelet count of 137. We are having ongoing issues with enteral feeding. The patient is a large hiatal hernia. He was having high residuals probably related to his hiatal hernia. Currently, he is on enteral feeding with vital high-protein at the rate of 30 mL an hour. He was also given Reglan. The OG tube may need to be repositioned. He is having issues with hypertension. He is currently on a combination of metoprolol 75 mg by mouth twice a day, diuretics also will help him with his blood pressure control, in combination with lisinopril 2.5 mg by mouth daily.. He is also on amiodarone as the patient did encounter nonsustained V. tach. His echo cardiac exam showed an ejection fraction of 45%, grade 1 diastolic heart failure, evidence of RV hypertrophy and dilation. Objective - Vital Signs Vital signs: Vital Signs Temp 98.5 F 01/16/23 08:00 Pulse 67 01/16/23 08:26 Resp 24 01/16/23 08:26 BP 137/100 01/16/23 08:00 Pulse Ox 97 01/16/23 08:17 FiO2 60 01/16/23 08:29 Intake & Output 01/15/23 01/16/23 01/16/23 18:59 06:59 18:59 Intake Total 8532.751 9965.110 199.003 Output Total 1730 1750 145 Balance -579.092 -511.890 54.003 Weight 122 kg 119.3 kg Intake: IV 150 395 40 Lactated Ringers 1,000 ml 150 @ 75 mls/hr IV .[id number] [facility] Rx#:[id number] Lactated Ringers 500 ml @ 220 40 20 mls/hr IV .Q24H [facility] Rx#:[id number] Piperacillin-Tazobactam 3 75 .375 gm In Sodium Chloride 0.9% 100 ml @ 25 mls/hr IVPB Q8HR [facility] Rx# :[id number] levETIRAcetam IV 750 mg 100 In Sodium Chloride 0.9% 100 ml @ 400 mls/hr IVPB Q12HR [facility] Rx#:[id number] Intake, IV Titration 520.908 323.110 69.003 Amount Lactated Ringers 500 ml @ 180 20 20 mls/hr IV .Q24H [facility] Rx#:[id number] Piperacillin-Tazobactam 3 150 .375 gm In Sodium Chloride 0.9% 100 ml @ 25 mls/hr IVPB Q8HR [facility] Rx# :[id number] propofoL 1,000 mg In 190.908 303.110 69.003 Empty Bag 1 bag @ 15 MCG/ KG/MIN 9.757 mls/hr IV . [id number] [facility] Rx#:[id number] Tube Feeding 420 360 60 Other 60 160 30 Output: Urine 1730 1750 145 Other: Voiding Method Indwelling Catheter Indwelling Catheter ABP, PAP, CO, CI - Last Documented Arterial Blood Pressure 157/86 - Exam GENERAL EXAM: Intubated, sedated 67-year-old male patient, on 60% FiO2 with a PEEP of 10 comfortable in no apparent distress. HEAD: Normocephalic. EYES: Normal reaction of pupils, equal size. NOSE: Clear with pink turbinates. THROAT: Oral endotracheal and gastric tube secured in place. No erythema or exud ates. NECK: No masses, no JVD. CHEST: No chest wall deformity. LUNGS: Equal air entry with few scattered rhonchi. CVS: S1 and S2 normal with no audible murmur, regular rhythm. ABDOMEN: No hepatosplenomegaly, normal bowel sounds, no guarding or rigidity. SPINE: No scoliosis or deformity SKIN: No rashes CENTRAL NERVOUS SYSTEM: Sedated, tone is normal in all 4 extremities. EXTREMITIES: There is no peripheral edema. No clubbing, no cyanosis. Peripheral pulses are intact. - Labs CBC & Chem 7: 01/16/23 04:10 01/16/23 04:10 Labs: Abnormal Lab Results - Last 24 Hours (Table) 01/15/23 01/15/23 01/16/23 Range/Units 11:20 17:40 04:10 MCV (80.0-100.0) fL MCHC (31.0-37.0) g/dL Plt Count (150-450) k/uL Neutrophils # (1.3-7.7) k/uL Lymphocytes # (1.0-4.8) k/uL ABG pCO2 (35-45) mmHg ABG pO2 (83-108) mmHg ABG HCO3 (21-25) mmol/L ABG Total CO2 (19-24) mmol/L ABG O2 Saturation (94-97) % Carbon Dioxide 39 H (22-30) mmol/L BUN 47 H (9-20) mg/dL Glucose 119 H (74-99) mg/dL POC Glucose (mg/dL) 117 H 126 H (70-110) mg/dL Calcium 8.3 L (8.4-10.2) mg/dL 01/16/23 01/16/23 Range/Units 04:10 05:38 MCV 100.3 H (80.0-100.0) fL MCHC 30.2 L (31.0-37.0) g/dL Plt Count 137 L (150-450) k/uL Neutrophils # 8.3 H (1.3-7.7) k/uL Lymphocytes # 0.5 L (1.0-4.8) k/uL ABG pCO2 64 H (35-45) mmHg ABG pO2 76 L (83-108) mmHg ABG HCO3 40 H* (21-25) mmol/L ABG Total CO2 42 H (19-24) mmol/L ABG O2 Saturation 93.8 L (94-97) % Carbon Dioxide (22-30) mmol/L BUN (9-20) mg/dL Glucose (74-99) mg/dL POC Glucose (mg/dL) (70-110) mg/dL Calcium (8.4-10.2) mg/dL Microbiology - Last 24 Hours (Table) 01/11/23 22:45 Gram Stain - Final Sputum Sputum Culture - Final Citrobacter koseri Assessment and Plan Plan: In-hospital cardiac arrest requiring CPR and subsequent return of spontaneous circulation within approximately 5 minutes the patient was given epinephrine, bicarb and the patient also had a episode of VT, given amiodarone. It is likely that this started off with a respiratory arrest and following that the patient had a cardiac arrest/asystole. The patient remains stable on oral amiodarone at a dose of 200 mg once a day. Encephalopathy post cardiac arrest and the patient is currently on propofol, failed sedation holiday yesterday Acute hypoxemic respiratory failure secondary to above requiring intubation and mechanical ventilatory support on 01/11/2023 Acute bilateral pneumonia with multifocal by the pulmonary infiltrates and sputum indicating gram-negative bacillus and the patient is currently on IV Zosyn. The sputum sample was positive for Citrobacter Chronic systolic heart failure with an ejection fraction of 45% Left lower lobe airspace disease as noted on the initial CAT scan of the chest Large hiatal hernia as noted on the initial CAT scan of the chest Acute COPD exacerbation on top of chronic COPD secondary to above Hypotension requiring pressor support, currently improved and off norepinephrine History of oxygen dependent chronic obstructive pulmonary disease Chronic and ongoing tobacco dependence Chronic atrial fibrillation, anticoagulated with Eliquis, maintain on a combination of flecainide and amiodarone and the patient's current cardiac rhythm is sinus History of hypertension Hyperlipidemia Hypothyroidism History of bipolar disorder History of anxiety/depression History of marijuana use Plan: Sedation holiday and assess the patient's mental status. No plans for ex tubation. However it's reasonable to evaluate his underlying mental status. This will be done on a daily basis. Consider underlying possibility of anoxic encephalopathy. Continue IV Keppra and EEG showed no seizure activity Continue ventilator support, gradually wean down his FiO2 as tolerated to maintain a saturation above 90%. I'm dropping the FiO2 down to 50%. I'm also changing the the PEEP down to 8. The patient has gram-negative bacillus in his sputum , and this turned out to be Citrobacter and he is currently on IV Zosyn and this will be continued IV fluids to KVO Continue IV Solu-Medrol to 40 mg every 12 hours Continue Lasix 40 milligrams IV every 12 hours Continue bronchodilators and systemic steroids Monitor enteral feeding as the patient is having increased residuals, Reglan was added Continue same cardiac medications Condition is critical and we'll continue to follow make further recommendations based on his progress. This evaluation was done in more than 30 minutes. Time with Patient: Greater than 30
[2023-01-16] MEDS: levETIRAcetam IV 750 MG in SODIUM CHLORIDE 0.9% 100 ML IVPB SCH ×2 (09:29→20:24)
[2023-01-16] MEDS: LACTATED RINGERS 1,000 ML IV SCH (10:14)
--- NOTE | 2023-01-16 10:16 | P.PN ---
Subjective Progress Note Date: 01/15/23 Patient initially seen by Dr. Chuy Steve. Please refer to his note for details. Patient is a 67-year-old male who came for shortness of breath. Patient had a cardiac arrest for 5 minutes and ?seizure witnessed by the nurse. Patient currently on Keppra 750 mg twice a day. EEG was negative for any seizures but patient has severe encephalopathy. CT head was reported as negative. Patient at present is on propofol 40 mcg/kg/m. Some other workup during the hospital visit consisted of Initial ABGs of pH is 7.18 predominantly hypercapnic. PH has normalized but the pCO2 was 67 bicarbonate is 37 Initial creatinine is 1.56 but it's trending down sodium on presentation 132 but it's improved magnesium is normal AST most recent 79 ALT 65 TSH is 0.548 2D echo was reported as poor quality study left ventricle size is normal there is mild global decrease in contractility noted. Endocardial margins are poorly seen. Occult contrast was not used. There is mild mitral annular calcification and aortic sclerosis. Sinus rhythm with first-degree AV block with frequent suburban ventricular premature complex. Possible left atrial enlargement. Possible right ventricular hypertrophy. Ammonia level is 30 (normal is <30). EEG: Is abnormal. The background slowing is suggestive of severe encephalopathy . Otherwise no focal slowing, epitleptiform discharge or seizure on the EEG. CT head is reported as negative. No change. Objective - Vital Signs Vital signs: Vital Signs Temp 98.8 F 01/15/23 16:00 Pulse 64 01/15/23 19:37 Resp 23 01/15/23 19:00 BP 140/99 01/15/23 12:00 Pulse Ox 90 L 01/15/23 19:00 FiO2 60 01/15/23 19:36 Intake & Output 01/15/23 01/15/23 01/16/23 06:59 18:59 06:59 Intake Total 2104.977 1150.908 80 Output Total 1030 1730 75 Balance 1074.977 -579.092 5 Weight 122 kg 122 kg Intake: IV 1065 150 Invasive Line 3 90 Lactated Ringers 1,000 ml 975 150 @ 75 mls/hr IV .[id number] [facility] Rx#:[id number] Intake, IV Titration 259.977 520.908 20 Amount Lactated Ringers 500 ml @ 180 20 20 mls/hr IV .Q24H [facility] Rx#:[id number] Norepinephrine 4 mg In 10.101 Sodium Chloride 0.9% 250 ml @ 0.03 MCG/KG/MIN 12. 391 mls/hr IV .[id number] [facility] Rx#:[id number] Piperacillin-Tazobactam 3 150 .375 gm In Sodium Chloride 0.9% 100 ml @ 25 mls/hr IVPB Q8HR [facility] Rx# :[id number] propofoL 1,000 mg In 249.876 190.908 Empty Bag 1 bag @ 15 MCG/ KG/MIN 9.757 mls/hr IV . [id number] [facility] Rx#:[id number] Tube Feeding 780 420 60 Other 60 Output: Urine 1030 1730 75 Other: Voiding Method Indwelling Catheter Indwelling Catheter ABP, PAP, CO, CI - Last Documented Arterial Blood Pressure 130/73 - Exam On examination patient is intubated, sedated. Patient's pupils are 4 mm, reacting to 3 mm bilaterally. Oculocephalics are slightly present. Corneals are present. No obvious seizure activity noted. Patient has a lot of bruises on his forearms. Patient not responding to painful stimuli. Patient has moderate peripheral edema. Reflexes are absent. Plantars are flat. Tone is normal in the arms and legs. Cerebellar functions cannot be assessed. No response to painful stimuli. - Labs CBC & Chem 7: 01/16/23 04:10 01/16/23 04:10 Labs: Abnormal Lab Results - Last 24 Hours (Table) 01/15/23 01/15/23 01/15/23 Range/Units 05:00 05:00 05:30 WBC 11.4 H (3.8-10.6) k/uL Plt Count 139 L (150-450) k/uL Neutrophils # 10.3 H (1.3-7.7) k/uL Lymphocytes # 0.5 L (1.0-4.8) k/uL ABG pCO2 61 H (35-45) mmHg ABG pO2 80 L (83-108) mmHg ABG HCO3 38 H (21-25) mmol/L ABG Total CO2 40 H (19-24) mmol/L Carbon Dioxide 37 H (22-30) mmol/L BUN 39 H (9-20) mg/dL Glucose 128 H (74-99) mg/dL POC Glucose (mg/dL) (70-110) mg/dL Calcium 8.3 L (8.4-10.2) mg/dL 01/15/23 01/15/23 Range/Units 11:20 17:40 WBC (3.8-10.6) k/uL Plt Count (150-450) k/uL Neutrophils # (1.3-7.7) k/uL Lymphocytes # (1.0-4.8) k/uL ABG pCO2 (35-45) mmHg ABG pO2 (83-108) mmHg ABG HCO3 (21-25) mmol/L ABG Total CO2 (19-24) mmol/L Carbon Dioxide (22-30) mmol/L BUN (9-20) mg/dL Glucose (74-99) mg/dL POC Glucose (mg/dL) 117 H 126 H (70-110) mg/dL Calcium (8.4-10.2) mg/dL Microbiology - Last 24 Hours (Table) 01/11/23 22:45 Gram Stain - Final Sputum Sputum Culture - Final Citrobacter koseri Assessment and Plan Assessment: This is a 67-year-old gentleman who presented because of the severe shortness of breath and dyspnea. In the emergency department she had that cardiopulmonary. Cardiopulmonary arrest (reported rhythm was VT) requiring 5 minute CPR Altered mental status seems due to anoxic encephalopathy due to above. component of metabolic encephalopathy and Medication induced (IV Propofol). EEG is negative for seizure or discharge and CT head is negative. Probable Seizure due to his cardiopulmonary arrest (reported had shaking of all extremities, unequal pupils and tongue bite)--resolved with 2mg Ativan Cardiogenic shock on Norepi Severe shortness of breath with dyspnea eventually work on to be intubated and the on a ventilator after the cardiopulmonary arrest Acute kidney injury--resolved History of Atrial fibrillation on eliquis Seem to the patient has a history of possible stroke behind the left eye Of hypertension Hyperlipidemia Hypothyroidism Nicotine dependence Plan: Continue Keppra 750mg every 12 hours for seizure. Every hour neuro checks Please avoid any hypotensive episode His ammonia level is 30 and normal is <30. Will defer management to primary team. Exam at present is limited because patient is on sedation. We will try to examine when patient is off sedation. We'll defer the rest of the medical management to primary team Discussed with patient's sister Marifer, and updated about above condition. Neurology will follow.
[2023-01-16 11:27] LABS: Glucose,Whole Blood 112 mg/dL (70-110)
--- NOTE | 2023-01-16 14:39 | P.PN ---
Subjective Progress Note Date: 01/16/23 01/16/2023: Patient was seen for a follow-up. Patient is off sedation since 11 AM today. Now 2:35 PM. Patient is intubated, minimal response as per examination below. No obvious seizure activity. His PEEP was decreased and O2 requirement. 01/15/2023: Patient initially seen by Dr. Chuy Steve. Please refer to his note for details. Patient is a 67-year-old male who came for shortness of breath. Patient had a cardiac arrest for 5 minutes and ?seizure witnessed by the nurse. Patient currently on Keppra 750 mg twice a day. EEG was negative for any seizures but patient has severe encephalopathy. CT head was reported as negative. Patient at present is on propofol 40 mcg/kg/m. Some other workup during the hospital visit consisted of Initial ABGs of pH is 7.18 predominantly hypercapnic. PH has normalized but the pCO2 was 67 bicarbonate is 37 Initial creatinine is 1.56 but it's trending down sodium on presentation 132 but it's improved magnesium is normal AST most recent 79 ALT 65 TSH is 0.548 2D echo was reported as poor quality study left ventricle size is normal there is mild global decrease in contractility noted. Endocardial margins are poorly seen. Occult contrast was not used. There is mild mitral annular calcification and aortic sclerosis. Sinus rhythm with first-degree AV block with frequent suburban ventricular premature complex. Possible left atrial enlargement. Possible right ventricular hypertrophy. Ammonia level is 30 (normal is <30). EEG: Is abnormal. The background slowing is suggestive of severe encephalopathy. Otherwise no focal slowing, epitleptiform discharge or seizure on the EEG. CT head is reported as negative. No change. Objective - Vital Signs Vital signs: Vital Signs Temp 98.5 F 01/16/23 08:00 Pulse 58 L 01/16/23 14:00 Resp 28 H 01/16/23 14:00 BP 137/100 01/16/23 08:00 Pulse Ox 93 L 01/16/23 14:00 FiO2 50 01/16/23 14:00 Intake & Output 01/15/23 01/16/23 01/16/23 18:59 06:59 18:59 Intake Total 4428.216 5797.110 674.751 Output Total 1730 1750 1595 Balance -579.092 -511.890 -920.249 Weight 122 kg 119.3 kg Intake: IV 150 395 310 Lactated Ringers 1,000 ml 150 @ 75 mls/hr IV .[id number] [facility] Rx#:[id number] Lactated Ringers 500 ml @ 220 160 20 mls/hr IV .Q24H [facility] Rx#:[id number] Piperacillin-Tazobactam 3 75 50 .375 gm In Sodium Chloride 0.9% 100 ml @ 25 mls/hr IVPB Q8HR [facility] Rx# :[id number] levETIRAcetam IV 750 mg 100 100 In Sodium Chloride 0.9% 100 ml @ 400 mls/hr IVPB Q12HR [facility] Rx#:[id number] Intake, IV Titration 520.908 323.110 94.751 Amount Lactated Ringers 500 ml @ 180 20 20 mls/hr IV .Q24H [facility] Rx#:[id number] Piperacillin-Tazobactam 3 150 .375 gm In Sodium Chloride 0.9% 100 ml @ 25 mls/hr IVPB Q8HR [facility] Rx# :[id number] propofoL 1,000 mg In 190.908 303.110 94.751 Empty Bag 1 bag @ 15 MCG/ KG/MIN 9.757 mls/hr IV . [id number] [facility] Rx#:[id number] Tube Feeding 420 360 240 Other 60 160 30 Output: Urine 1730 1750 1595 Other: Voiding Method Indwelling Catheter Indwelling Catheter Indwelling Catheter ABP, PAP, CO, CI - Last Documented Arterial Blood Pressure 131/70 - Exam On examination patient is intubated, off sedation since 11 AM. His pupils are equal, 4 mm reacting to 3 mm bilaterally. Oculocephalics are slightly present. Corneals are present. No obvious seizure activity noted. Patient does not respond to calling his name loudly. On painful stimuli, patient does do facial grimacing on both sides. With noxious stimulus in the lower limbs, patient slightly wiggled his feet. Patient has a lot of bruises on his forearms. Patient has moderate peripheral edema. Reflexes are absent. Plantars are flat. Tone is normal in the arms and legs. Cerebellar functions cannot be assessed. - Labs CBC & Chem 7: 01/16/23 04:10 01/16/23 04:10 Labs: Abnormal Lab Results - Last 24 Hours (Table) 01/15/23 01/16/23 01/16/23 Range/Units 17:40 04:10 04:10 MCV 100.3 H (80.0-100.0) fL MCHC 30.2 L (31.0-37.0) g/dL Plt Count 137 L (150-450) k/uL Neutrophils # 8.3 H (1.3-7.7) k/uL Lymphocytes # 0.5 L (1.0-4.8) k/uL ABG pCO2 (35-45) mmHg ABG pO2 (83-108) mmHg ABG HCO3 (21-25) mmol/L ABG Total CO2 (19-24) mmol/L ABG O2 Saturation (94-97) % Carbon Dioxide 39 H (22-30) mmol/L BUN 47 H (9-20) mg/dL Glucose 119 H (74-99) mg/dL POC Glucose (mg/dL) 126 H (70-110) mg/dL Calcium 8.3 L (8.4-10.2) mg/dL 01/16/23 01/16/23 Range/Units 05:38 11:26 MCV (80.0-100.0) fL MCHC (31.0-37.0) g/dL Plt Count (150-450) k/uL Neutrophils # (1.3-7.7) k/uL Lymphocytes # (1.0-4.8) k/uL ABG pCO2 64 H (35-45) mmHg ABG pO2 76 L (83-108) mmHg ABG HCO3 40 H* (21-25) mmol/L ABG Total CO2 42 H (19-24) mmol/L ABG O2 Saturation 93.8 L (94-97) % Carbon Dioxide (22-30) mmol/L BUN (9-20) mg/dL Glucose (74-99) mg/dL POC Glucose (mg/dL) 112 H (70-110) mg/dL Calcium (8.4-10.2) mg/dL Microbiology - Last 24 Hours (Table) 01/11/23 22:45 Gram Stain - Final Sputum Sputum Culture - Final Citrobacter koseri Assessment and Plan Assessment: This is a 67-year-old gentleman who presented because of the severe shortness of breath and dyspnea. In the emergency department he had that cardiopulmonary arrest. Cardiopulmonary arrest (reported rhythm was VT) requiring 5 minute CPR Altered mental status seems due to anoxic encephalopathy due to above. component of metabolic encephalopathy and Medication induced (IV Propofol). EEG is negative for seizure or discharge and CT head is negative. Probable Seizure due to his cardiopulmonary arrest (reported had shaking of all extremities, unequal pupils and tongue bite)--resolved with 2mg Ativan Cardiogenic shock on Norepi Severe shortness of breath with dyspnea. On a ventilator after the cardiopulmonary arrest Acute kidney injury--resolved History of Atrial fibrillation on eliquis History of possible stroke behind the left eye Of hypertension Hyperlipidemia Hypothyroidism Nicotine dependence Plan: Continue Keppra 750mg every 12 hours for seizure. Every hour neuro checks Please avoid any hypotensive episode His ammonia level is 30 and normal is <30. Will defer management to primary team. Patient is off sedation since 11 AM, showing minimal response. Patient is off pressors. We'll defer the rest of the medical management to primary team Discussed with patient's nurse. Discussed with patient's sister, and updated about above condition.
[2023-01-16 17:59] LABS: Glucose,Whole Blood 104 mg/dL (70-110)
[2023-01-16] MEDS: LATANOPROST 0.005% OPHTH DROPS 2.5 ML BTL LEFT EYE SCH (21:02)
[2023-01-16] MEDS: OLANZapine 10 MG TAB PO SCH (21:03)
--- NOTE | 2023-01-16 22:06 | P.PN ---
Progress Note - Text Progress Note Date: 01/16/23 Chief Complaint: Shortness of breath, chest pain This is a 67-year-old patient who follows with Dr. Alvin Villela. Chronic stable medical conditions include hyperlipidemia, hypothyroid, bipolar, atrial fibrillation. Patient is a smoker. COPD, CHF, bipolar, hiatal hernia Patient presented to the ER, brought in by the family because of shortness of breath and chest pain. In the last 3 weeks apparently patient fallen about 3 times. No fever no chills. Some palpitations. Increasing lower extremity edema. Nonproductive cough. Late in the afternoon patient was found to be in PEA. Code team was called. Patient did require epinephrine. intubated. FiO2 100 and PEEP of 5. Patient have a broad complex tachycardia. Advance Agent Dr. Steve was informed. Admitted with acute COPD exacerbation, acute CHF exacerbation, acute hypoxic hypercapnic respiratory failure. Intubated. 01/12/2023: ICU. Drips include IV propofol, Levophed. Patient sedated. Telemetry shows sinus rhythm. FiO2 70 to PEEP of 5. Patient seen by crm business analyst Dr. Valdes. IV Lasix has been discontinued. IV fluids. 01/13/2023: ICU. Intubated. FiO2 70 PEEP of 10. Drips include propofol and norepinephrine. 2 feeding at 40 mL an hour. Patient went into A. fib with rapid ventricle rate yesterday. Was put on IV Cardizem and IV amiodarone. Went back into sinus rhythm. There was some concern about neuro status change for which neurology was consulted, pending computed tomography scan. No focal weakness. His started on IV Keppra per neurology 01/14/2023: ICU. Intubated. FiO2 70 PEEP of 10. Patient is off levo fed since this morning. On IV propofol. OG tube for feeding at 60 mL an hour. Significant secretions checks x-ray showing infiltrate. His started on IV Zosyn. and daughter the bedside. Discussed. Eliquis. Cordarone. IV Solu-Medrol. IV Keppra. 01/15/2023: ICU. Intubated. FiO2 70 PEEP of 10. 2 feeding. Telemetry sinus rhythm. OG tube feeding. Patient has remained off levo fed. IV Zosyn. IV Keppra. 01/16/2023: ICU. Intubated. FiO2 50 PEEP of 7. Sinus rhythm. Sedation holiday today. Getting 2 feeding. Active Medications Acetaminophen (Acetaminophen Tab 325 Mg Tab) 650 mg PO Q4HR PRN PRN Reason: Mild Pain or Fever > 100.5 Albuterol Sulfate (Albuterol Nebulized 2.5 Mg/3 Ml) 2.5 mg INHALATION RT-Q4H [facility] Last Admin: 01/16/23 20:04 Dose: 2.5 mg Amiodarone HCl (Amiodarone 200 Mg Tab) 200 mg PO BID [facility] Last Admin: 01/16/23 20:22 Dose: 200 mg Apixaban (Apixaban 5 Mg Tab) 5 mg PO BID [facility]; Protocol Last Admin: 01/16/23 20:22 Dose: 5 mg Aspirin (Aspirin 81 Mg) 81 mg PO DAILY [facility] Last Admin: 01/16/23 09:03 Dose: 81 mg Budesonide (Budesonide 1 Mg/2 Ml Nebu) 1 mg INHALATION RT-BID [facility] Last Admin: 01/16/23 20:04 Dose: 1 mg Chlorhexidine Gluconate (Chlorhexidine Gluconate 15 Ml Cup) 15 ml MUCOUS MEM BID [facility] Last Admin: 01/16/23 20:22 Dose: 15 ml Docusate Sodium (Docusate Oral Soln 100 Mg/10 Ml Cup) 100 mg PO BID [facility] Last Admin: 01/16/23 20:22 Dose: 100 mg Formoterol Fumarate (Formoterol Fumarate 20 Mcg/2 Ml Nebu) 20 mcg INHALATION RT-BID [facility] Last Admin: 01/16/23 20:04 Dose: 20 mcg Furosemide (Furosemide 10 Mg/Ml 2 Ml Vial) 20 mg IV Q12HR [facility] Last Admin: 01/16/23 20:22 Dose: 20 mg Gabapentin (Gabapentin 100 Mg Cap) 200 mg PO TID [facility] Last Admin: 01/16/23 21:04 Dose: 200 mg Hydromorphone HCl (Hydromorphone 1 Mg/Ml 1 Ml Syringe) 1 mg IVP Q4HR PRN PRN Reason: MODERATE TO SEVERE PAIN (4-10) Propofol 1,000 mg/ IV Solution 100 mls @ 9.757 mls/hr IV .[id number] [facility]; Protocol Last Titration: 01/16/23 10:53 Dose: 0 mcg/kg/min, 0 mls/hr Norepinephrine Bitartrate 4 mg (/ Sodium Chloride) 254 mls @ 12.391 mls/hr IV .[id number] [facility]; Protocol Last Admin: 01/16/23 06:08 Dose: Not Given Levetiracetam 750 mg/ Sodium (Chloride) 107.5 mls @ 400 mls/hr IVPB Q12HR [facility] Last Admin: 01/16/23 20:24 Dose: 400 mls/hr Piperacillin Sod/Tazobactam (Sod 3.375 gm/ Sodium Chloride) 100 mls @ 25 mls/hr IVPB Q8HR [facility]; Protocol Last Admin: 01/16/23 15:36 Dose: 25 mls/hr Lactated Ringer's (Lactated Ringers) 1,000 mls @ 20 mls/hr IV .Q24H [facility] Last Admin: 01/16/23 10:14 Dose: 20 mls/hr Insulin Aspart (Insulin Aspart (Novolog) 100 Unit/Ml Vial) 0 unit SQ Q6HR [facility]; Protocol Last Admin: 01/16/23 18:27 Dose: Not Given Ipratropium [place] (Ipratropium 0.5 Mg/2.5 Ml Nebu) 0.5 mg INHALATION RT-Q4H [facility] Last Admin: 01/16/23 20:04 Dose: 0.5 mg Latanoprost (Latanoprost 0.005% Ophth Drops 2.5 Ml Btl) 1 drops LEFT EYE HS [facility] Last Admin: 01/16/23 21:02 Dose: 1 drops Levothyroxine Sodium (Levothyroxine 125 Mcg Tab) 125 mcg PO DAILY@0630 [facility] Last Admin: 01/16/23 06:06 Dose: 125 mcg Lisinopril (Lisinopril 2.5 Mg Tab) 2.5 mg PO BID [facility] Last Admin: 01/16/23 21:03 Dose: 2.5 mg Methylprednisolone Sodium Succinate (Methylprednisolone Sod Succi 40 Mg/Ml 1 Ml Vial) 40 mg IV Q12HR [facility] Last Admin: 01/16/23 20:22 Dose: 40 mg Metoclopramide HCl (Metoclopramide Oral Soln 10 Mg/10 Ml Cup) 10 mg PO TID [facility] Last Admin: 01/16/23 21:03 Dose: 10 mg Metoprolol Tartrate (Metoprolol Tartrate 25 Mg Tab) 75 mg PO BID [facility] Last Admin: 01/16/23 20:22 Dose: 75 mg Miscellaneous Information (Potassium Replacement Protocol 1 Each Misc) 1 each MISCELLANE DAILY PRN; Protocol PRN Reason: Per Protocol Miscellaneous Information (Potassium Replacement Protocol 1 Each Misc) 1 each MISCELLANE DAILY PRN; Protocol PRN Reason: Per Protocol Naloxone HCl (Naloxone 0.4 Mg/Ml 1 Ml Vial) 0.2 mg IVP Q2M PRN PRN Reason: Opioid Reversal Nicotine (Nicotine 21mg/24hr Patch) 1 patch TRANSDERM DAILY [facility] Last Admin: 01/16/23 08:53 Dose: 1 patch Olanzapine (Olanzapine 10 Mg Tab) 20 mg PO HS [facility] Last Admin: 01/16/23 21:03 Dose: 20 mg Pantoprazole Sodium (Pantoprazole 40 Mg Tablet) 40 mg PO DAILY [facility] Last Admin: 01/16/23 09:04 Dose: 40 mg Past medical history to include: COPD, hyperlipidemia, hypothyroid, bipolar, atrial fibrillation, bipolar, CHF, he had hernia Social history: Lives with sister Marifer, smokes a pack a day for many years, no alcohol Physical examination: VITAL SIGNS: 98.5, 65, 24, 1 37 x 100, 97% on the ventilator GENERAL:laying in bed, intubated EYES: Pupils equal. Conjunctiva normal. HEENT: External appearance of nose and ears normal, oral cavity grossly normal. Endotracheal tube. OG tube feeding NECK: JVD is able to assess; masses not palpable. HEART: First and second heart sounds are normal; edema present LUNGS: Respiratory rate increased; decreased breath sounds ABDOMEN: Soft, nontender, liver spleen not palpable, no masses palpable. PSYCH: Sedated MUSCULOSKELETAL:No Clubbing/cyanosis;muscles-grossly intact. Evidence of OA INVESTIGATIONS, reviewed in the clinical context: Sputum culture: Citrobacter koseri 01/16/2023: White count 9.9 hemoglobin 15.1 platelets 137 potassium 4.8 creatinine 1.13 01/15/2023: White count 11.4 hemoglobin 14.9 platelets 139 potassium 4.5 creatinine 0.95 EEG: Encephalopathy. No seizure activity. 01/14/2023: White count 15.6 hemoglobin 15.1 platelets 160 potassium 4.3 BUN 30 creatinine 1.07 01/13/2023: White count 7.19 globin 16.2 potassium 3.9 BUN 23 creatinine 1.03 troponin I 0.016 proBNP 1150 2-D echocardiogram: EF 45-50%. Right ventricle dilatation, right ventricular hypertrophy 01/12/2023: White count 13.9 hemoglobin 16.2 platelets 123 potassium 3.7 creatinine 1.19 cortisol 22 TSH 0.548 White count 10.6 hemoglobin 16.4 platelets 153 potassium 3.1 BUN 24 creatinine 1.4 to AST 79 ALT 65 Procalcitonin 0.08 ABG: PH 7.18 pCO2 102 pO2 153 EKG tracing personally reviewed by me-normal sinus rhythm. Intraventricular block. Poor R-wave progression. Chest x-ray film personally reviewed by me-large hiatal hernia. Cardiomegaly. Venous prominence. Assessment and plan: -Acute hypoxic and hypercapnic respiratory failure secondary to COPD exacerbation and CHF exacerbation: Slow to respond Patient on ventilator assist. 70% FiO2 -Paroxysmal atrial fibrillation flutter, had an episode of rapid rate - Back in sinus rhythm Telemetry. Eliquis 5 mg twice a day. Lopressor 75 mg twice a day flecainide- discontinued. Cordarone. -Possible seizure per neurology. On Keppra. EEG negative for seizure activity -Possible aspiration pneumonia IV Zosyn -Acute COPD exacerbation in a current smoker Albuterol 4 times a day.. IV Solu-Medrol. Nebulized Perforomist and Pulmicort, -Acute on Chronic congestive heart failure from systolic dysfunction EF 45-50%- Received IV Lasix -Hypothyroid Levothyroxine 125 g a day -Essential hypertension Currently blood pressure low -Cardiogenic shock: Better Taken off off levo fed -NG tube feeding -Chronic nicotine dependence, cigarette smoker Nicotine patch -Bipolar disorder Zyprexa 20 mg daily at bedtime. -Full code IV propofol -sedation holiday. .. Bronchodilators. Steroids. IV Keppra. IV Zosyn eliquis. Amiodarone.
[2023-01-16 23:47] LABS: Glucose,Whole Blood 104 mg/dL (70-110)
[2023-01-17] MEDS: PIPERACILLIN-TAZOBACTAM 3.375 GM in SODIUM CHLORIDE 0.9% 100 ML IVPB SCH ×4 (00:03→23:18)
[2023-01-17] MEDS: ALBUTEROL NEBULIZED 2.5 MG/3 ML INHALATION SCH ×6 (00:43→19:49)
[2023-01-17] MEDS: IPRATROPIUM 0.5 MG/2.5 ML NEBU INHALATION SCH ×6 (00:44→19:49)
[2023-01-17] MEDS: NOREPINEPHRINE 4 MG in SODIUM CHLORIDE 0.9% 250 ML IV SCH ×2 (02:08→23:09)
[2023-01-17 05:01] LABS: Basophils # (A) 0.1 k/uL (0-0.2); Basophils % (A) 1 %; Eosinophils # (A) 0.1 k/uL (0-0.7); Eosinophils % (A) 1 %; HCT 48.9 % (39.0-53.0); HGB 14.9 gm/dL (13.0-17.5); Hypochromasia Slight; Lymphocytes # (A) 0.7 k/uL (1.0-4.8); Lymphocytes % (A) 8 %; MCH 30.6 pg (25.0-35.0); MCHC 30.5 g/dL (31.0-37.0); MCV 100.5 fL (80.0-100.0); Macrocytosis Slight; Mean Platelet Volume 10.6; Monocytes # (A) 0.8 k/uL (0-1.0); Monocytes % (A) 9 %; Neutrophils # (A) 7.6 k/uL (1.3-7.7); Neutrophils % (A) 81 %; Platelet Count 142 k/uL (150-450); RBC 4.87 m/uL (4.30-5.90); RDW 13.7 % (11.5-15.5); WBC 9.5 k/uL (3.8-10.6)
[2023-01-17 05:10] LABS: Calcium 8.3 mg/dL (8.4-10.2); Potassium 4.9 mmol/L (3.5-5.1)
[2023-01-17 05:59] LABS: Glucose,Whole Blood 95 mg/dL (70-110)
[2023-01-17 06:06] LABS: ABG Base Excess 13.1 mmol/L; ABG HCO3 38 mmol/L (21-25); ABG Oxygen Saturation 93.1 % (94-97); ABG PCO2 57 mmHg (35-45); ABG PH 7.43 (7.35-7.45); ABG PO2 69 mmHg (83-108); ABG TCO2 39 mmol/L (19-24); Allen Test Performed? Yes
[2023-01-17] MEDS: INSULIN ASPART (NovoLOG) 100 UNIT/ML VIAL SQ SCH ×4 (06:08→23:37)
[2023-01-17 06:09] LABS: Glucose,Whole Blood 97 mg/dL (70-110)
--- NOTE | 2023-01-17 07:29 | XR ---
EXAMINATION TYPE: XR chest 1V portable DATE OF EXAM: 01/17/2023 6:21 AM COMPARISON: Chest radiograph from one day prior. TECHNIQUE: XR chest 1V portable Frontal view of the chest. CLINICAL INDICATION:Male, 67 years old with history of assess lungs; FINDINGS: Lungs/Pleura: Bibasilar airspace opacities which are worsened on the right. Pulmonary vascularity: Unremarkable. Heart/mediastinum: Cardiomediastinal silhouette is partially obscured due to overlying and adjacent o pacities. Musculoskeletal: No acute osseous pathology. Other findings: None Lines/Tubes: Endotracheal tube with distal tip 6.0 cm above the preeti. Nasogastric tube with its distal tip and side-port projecting over the gastric lumen in a hiatal eliseo ia. Left-sided PICC with distal tip at the superior vena cava/brachiocephalic confluence. IMPRESSION: Worsening right basilar airspace opacities could represent increasing atelectasis.
[2023-01-17] MEDS: FORMOTEROL FUMARATE 20 MCG/2 ML NEBU INHALATION SCH ×2 (08:23→19:49)
[2023-01-17] MEDS: BUDESONIDE 1 MG/2 ML NEBU INHALATION SCH ×2 (08:23→19:49)
--- NOTE | 2023-01-17 08:33 | P.PN ---
Subjective Progress Note Date: 01/17/23 PROGRESS NOTE The patient is a 67-year-old male with known history of atrial fibrillation, anticoagulated, chronic obstructive lung disease, marijuana use, bipolar disorder, hypertension and hyperlipidemia who presented with worsening dyspnea. He had a cardiac arrest with nonsustained VT, he was intubated and transferred to the ICU. His echocardiogram was reported showing an ejection fraction of 45-50%. The patient remains intubated and sedated, off norepinephrine. Hemodynamically he is stable. His urinary output is stable. There is no evidence of ventricular tachycardia. January 16: The patient remains intubated and sedated. Hemodynamically stable. He has no evidence of ventricular ectopic activity. He has evidence of respiratory failure with bilateral pneumonia. His urinary output is good. He has a prior history of COPD. He has mild cardiomyopathy on the echocardiogram. There is a history of paroxysmal atrial fibrillation, on amiodarone. His flecainide has been stopped. He is in sinus mechanism at this time. January 17: The patient remains intubated and sedated, hemodynamically stable. There is no evidence of ventricle tachycardia. His urinary output has been stable. He has no malignant arrhythmia. He is tolerating his present regimen of PANTERA inhibitor and beta jazmin. He continues to be on amiodarone. He is receiving nutrition per NG tube. He continues to be sedated on propofol. His EKG showed severe encephalopathy Medications: Amiodarone 200 mg twice a day, aspirin once a day, metoprolol 75 mg twice a day, levothyroxine, methylprednisolone, Eliquis 5 mg twice a day, Lasix 20 mg IV every 12 hours, lisinopril 2.5 mg twice a day PHYSICAL EXAMINATION: Blood pressure 113/60 heart rate 60, intubated and sedated LUNGS: Clear to auscultation anteriorly HEART: Regular rate and rhythm, S1, S2. No S3. systolic ejection murmur ABDOMEN: Soft, positive bowel sounds, no organomegaly EXTREMETIES: +1 edema LAB: Hemoglobin of 18.9, potassium 4.9, BUN 49, creatinine 1.02 IMPRESSION: 1. Cardiac arrest with respiratory failure, no evidence of acute coronary syndr ome, cardiac arrest most likely secondary to the respiratory failure and the pneumonia 2. History of atrial fibrillation, anticoagulated 3. History of COPD and chronic tobacco use 4. History of hypertension PLAN: 1. Continue present dose of beta jazmin and PANTERA inhibitor 2. Increase the dose of PANTERA inhibitor if blood pressure is stable 3. Continue anticoagulation 4. Follow renal functions Objective - Vital Signs Vital signs: Vital Signs Temp 98.7 F 01/17/23 04:00 Pulse 56 L 01/17/23 06:00 Resp 26 H 01/17/23 06:00 BP 104/66 01/17/23 05:00 Pulse Ox 95 01/17/23 06:00 FiO2 50 01/17/23 07:50 Intake & Output 01/16/23 01/17/23 01/17/23 18:59 06:59 18:59 Intake Total 911.171 0806 Output Total 2370 2910 Balance -1390.249 -1870 Intake: IV 465 440 Lactated Ringers 500 ml @ 240 240 20 mls/hr IV .Q24H [facility] Rx#:[id number] Piperacillin-Tazobactam 3 125 100 .375 gm In Sodium Chloride 0.9% 100 ml @ 25 mls/hr IVPB Q8HR [facility] Rx# :[id number] levETIRAcetam IV 750 mg 100 100 In Sodium Chloride 0.9% 100 ml @ 400 mls/hr IVPB Q12HR [facility] Rx#:[id number] Intake, IV Titration 94.751 Amount propofoL 1,000 mg In 94.751 Empty Bag 1 bag @ 15 MCG/ KG/MIN 9.757 mls/hr IV . [id number] [facility] Rx#:[id number] Tube Feeding 360 360 Other 60 240 Output: Urine 2370 2910 Other: Voiding Method Indwelling Catheter Indwelling Catheter ABP, PAP, CO, CI - Last Documented Arterial Blood Pressure 113/63 - Labs CBC & Chem 7: 01/17/23 04:50 01/17/23 04:50 Labs: Abnormal Lab Results - Last 24 Hours (Table) 01/16/23 01/17/23 01/17/23 Range/Units 11:26 04:50 04:50 MCV 100.5 H (80.0-100.0) fL MCHC 30.5 L (31.0-37.0) g/dL Plt Count 142 L (150-450) k/uL Lymphocytes # 0.7 L (1.0-4.8) k/uL ABG pCO2 (35-45) mmHg ABG pO2 (83-108) mmHg ABG HCO3 (21-25) mmol/L ABG Total CO2 (19-24) mmol/L ABG O2 Saturation (94-97) % Carbon Dioxide 39 H (22-30) mmol/L BUN 49 H (9-20) mg/dL Glucose 113 H (74-99) mg/dL POC Glucose (mg/dL) 112 H (70-110) mg/dL Calcium 8.3 L (8.4-10.2) mg/dL 01/17/23 Range/Units 06:03 MCV (80.0-100.0) fL MCHC (31.0-37.0) g/dL Plt Count (150-450) k/uL Lymphocytes # (1.0-4.8) k/uL ABG pCO2 57 H (35-45) mmHg ABG pO2 69 L (83-108) mmHg ABG HCO3 38 H (21-25) mmol/L ABG Total CO2 39 H (19-24) mmol/L ABG O2 Saturation 93.1 L (94-97) % Carbon Dioxide (22-30) mmol/L BUN (9-20) mg/dL Glucose (74-99) mg/dL POC Glucose (mg/dL) (70-110) mg/dL Calcium (8.4-10.2) mg/dL
--- NOTE | 2023-01-17 08:53 | P.PN ---
Subjective Progress Note Date: 01/17/23 67-year-old male patient was being seen on follow-up on 01/15/2023. The patient is currently intubated on a mechanical ventilator. The patient is known to have COPD and chronic hypoxic respiratory failure in addition to multiple comorbidities including atrial fibrillation, hypertension, hypothyroidism, bipolar disorder and is a chronic smoker. He came into the emergency department because of worsening shortness of breath. In the ED, the patient a cardiac arrest for approximately 5 minutes and he was resuscitated after being given epinephrine 3 and bicarb. He did encounter some nonsustained VT and he was given amiodarone. Following that, he was transferred to the intensive care unit. He did encounter some seizure activity following his cardiac arrest. This morning, the patient remains on propofol which is running at 40 mcg/kg/m. His calm and comfortable and symptoms of mechanical ventilator. He remains on assist-control mode of mechanical ventilation at the rate of 24, tidal volume of 450, FiO2 of 70% and a PEEP of 10. Chest x-ray showing bilateral lower lobe effusion/consolidation. The ET tube needs to be adjusted and pushed him by another 1 cm.. No significant orotracheal secretions at this point in time. The patient does have multifocal airspace disease mainly in the lower lobes. The patient has a blood gas that shows a pH of 7.4 with a pCO2 of 61 and pO2 of 80. His peak airway pressure is 26 on the mechanical ventilator. He is on IV fluids and currently is on lactated Ringer at the rate of 75 mL an hour. His WBC count is at 11.4 with a hemoglobin of 14.9 and a platelet count of 139. Sodium is at 139 with a potassium level of 4.5, bicarb is at 37 BUN is at 39 with a creatinine of 0.9. His proBNP level at time of admission was 1590 and it gradually dropped. His sputum is positive for gram-negative bacillus and the patient is currently on IV Zosyn. His cardiac rhythm is currently sinus. He is on amiodarone 200 mg by mouth twice a day, and flecainide 50 mg by mouth twice a day. He has been also on long-term anticoagulation with Eliquis. He remains on bronchodilators. He remains on IV Solu-Medrol. Antibiotic coverage with IV Zosyn. He was started on IV Keppra regarding his seizure activity. Neurology is on the case. EEG was done on 01/13/2023 and it showed severe encephalopathy. No seizure activity was noted otherwise. His echocardiogram that was done on 01/12/2023 showed poor LV function which was in the order of ejection fraction of 45%. There was evidence of RV dilatation. There was evidence of RV hypertrophy. There was normal RV function. There is also grade 1 diastolic dysfunction. The patient is also on vital high-protein which is running at 60 mL an hour and is having and encountering high residuals. CAT scan of the brain was essentially negative. On today's evaluation of 01/16/2023, the patient is being seen in follow-up. The patient remains intubated on a mechanical ventilator. There is a case of pneumonia with respiratory failure and subsequent cardiac arrest. This morning, the patient is still on propofol which is running at 25 mcg/kg/m. Noted the patient was given a sedation holiday yesterday. He did not fully recover. He became restless and agitated and asynchronous a mechanical ventilator. He was not following any commands. The holiday was aborted and the patient was placed back on propofol. The same will be done today. He remains on a mechanical ventilator. Assist-control mode at the rate of 24, tidal volume of 450, FiO2 of 60% with a PEEP of 10. PH is at 7.4 with a pCO2 of 64 and pO2 of 76. Chest x- ray showing a large hiatal hernia. The patient has bibasilar atelectasis and infiltrates, essentially unchanged compared to yesterday. The sputum is positive for Citrobacter and the patient is currently covered with IV Zosyn which is appropriate for the time being. No significant orotracheal secretions. The patient is also on Ventolin about treatments [id number], is also on a combination of Pulmicort and Perforomist nebulized treatments. He is receiving IV Solu-Medrol at a dose of 40 mg every 12 hours. I wean the Solu-Medrol yesterday the patient is less bronchospastic and wheezy as is recovering from an acute COPD exacerbation. Hemodynamically, the patient is in normal sinus rhythm. The patient is hemodynamically stable on no pressors. The patient r emains on Lasix 20 mg IV every 12 hours. The patient has been in negative fluid balance of 1 L over the past 24 hours. As such, diuretics will be continued. BUN is at 47 with a creatinine of 1.1 and sodium level is at 141. The WBC count is at 9.9 with a hemoglobin of 15 and a platelet count of 137. We are having ongoing issues with enteral feeding. The patient is a large hiatal hernia. He was having high residuals probably related to his hiatal hernia. Currently, he is on enteral feeding with vital high-protein at the rate of 30 mL an hour. He was also given Reglan. The OG tube may need to be repositioned. He is having issues with hypertension. He is currently on a combination of metoprolol 75 mg by mouth twice a day, diuretics also will help him with his blood pressure control, in combination with lisinopril 2.5 mg by mouth daily.. He is also on amiodarone as the patient did encounter nonsustained V. tach. His echo cardiac exam showed an ejection fraction of 45%, grade 1 diastolic heart failure, evidence of RV hypertrophy and dilation. 01/17/2023, patient is being seen in follow-up in the intensive care unit. Noted the patient is currently intubated on a mechanical ventilator. There was a concern of encephalopathy post cardiac arrest. His cardiac arrest was rather brief. The patient was taken off sedation yesterday at around 11 AM and the patient is still very much somnolent and sleepy. Nevertheless, upon repeated stimulation, he is able to follow some simple commands. He would open up his eyes spontaneously and he would squeeze using his hands. Nevertheless, his response is not consistent and is quite somnolent and lethargic and sleepy still. He remains off sedation. Is able to tolerate the mechanical ventilator reveal well and the patient this morning is on assist control mode at the rate of 24, tidal volume of 450, FiO2 of 50% with a PEEP of 8. His pulse ox was 90- 93%. Blood gas showed a pH of 7.43 with a pCO2 of 57 and pCO2 of 69. His chest x-ray reveals a large hiatal hernia and we are seeing the NG tube coiling up into his stomach and is up in the chest. There is evidence of pleural effusion bibasilar pulmonary infiltrates/atelectasis. I would say, the chest x-ray findings somewhat suboptimal due to the large hiatal hernia and its present in his left chest. Meanwhile, his sputum sample was positive for Citrobacter. The patient remains on IV antibiotics and the patient is currently on IV Zosyn. Minimal respiratory secretions for now. Gas was noted. PEEP will be dropped onto 7. At the same time, the patient remains on bronchodilators. I was able to wean down his Solu-Medrol as the patient had a component of acute COPD exacerbation. He is obviously much less bronchospastic and wheezy and the patient remains on Solu-Medrol 40 mg every 12 hours in addition to his routine bronchodilators. Hemodynamically, he is stable. He was an obvious fluid overload and the patient is currently being diuresed. Overall fluid balance over the past 24 hours is -3.2 L as the patient is receiving Lasix 40 mg IV every 12 hours. His net fluid balance is negative. BUN is at 49 with a creatinine of 1.02. Sodiums of 143 with a potassium level of 4.9 and a bicarb level of 39. The white cell count is at 9.5 with a hemoglobin of 14.9 and a platelet count of 142. He is continuing his enteral feeding. I think the OG tube may need to be pulled out slightly and reposition. He is currently on vital high-protein at 30 mL an hour. His current cardiac rhythm is sinus. He remains on amiodarone as the patient encountered nonsustained V. tach and the time of his cardiac arrest. He is currently on oral amiodarone 200 mg by mouth twice a day. He remains on long-term anticoagulation with Eliquis 5 mg by mouth twice a day. His echo cardiac exam showed grade 1 diastolic heart failure with an ejection fraction of 45%. Rhythm is sinus. Objective - Vital Signs Vital signs: Vital Signs Temp 98.7 F 01/17/23 04:00 Pulse 64 01/17/23 08:40 Resp 26 H 01/17/23 06:00 BP 104/66 01/17/23 05:00 Pulse Ox 95 01/17/23 06:00 FiO2 50 01/17/23 07:50 Intake & Output 01/16/23 01/17/23 01/17/23 18:59 06:59 18:59 Intake Total 501.970 9341 100 Output Total 2370 2910 350 Balance -1390.249 -1870 -250 Intake: IV 465 440 40 Lactated Ringers 500 ml @ 240 240 40 20 mls/hr IV .Q24H [facility] Rx#:[id number] Piperacillin-Tazobactam 3 125 100 .375 gm In Sodium Chloride 0.9% 100 ml @ 25 mls/hr IVPB Q8HR [facility] Rx# :[id number] levETIRAcetam IV 750 mg 100 100 In Sodium Chloride 0.9% 100 ml @ 400 mls/hr IVPB Q12HR [facility] Rx#:[id number] Intake, IV Titration 94.751 Amount propofoL 1,000 mg In 94.751 Empty Bag 1 bag @ 15 MCG/ KG/MIN 9.757 mls/hr IV . [id number] [facility] Rx#:[id number] Tube Feeding 360 360 60 Other 60 240 Output: Urine 2370 2910 350 Other: Voiding Method Indwelling Catheter Indwelling Catheter ABP, PAP, CO, CI - Last Documented Arterial Blood Pressure 113/63 - Exam GENERAL EXAM: Intubated, sedated 67-year-old male patient, comfortable in no apparent distress. Orotracheal tube are both in place and the patient is curr ently off sedation. HEAD: Normocephalic. EYES: Normal reaction of pupils, equal size. NOSE: Clear with pink turbinates. THROAT: Oral endotracheal and gastric tube secured in place. No erythema or exud ates. NECK: No masses, no JVD. CHEST: No chest wall deformity. LUNGS: Equal air entry with few scattered rhonchi. CVS: S1 and S2 normal with no audible murmur, regular rhythm. ABDOMEN: No hepatosplenomegaly, normal bowel sounds, no guarding or rigidity. SPINE: No scoliosis or deformity SKIN: No rashes CENTRAL NERVOUS SYSTEM: Patient has been off sedation, following simple commands, still quite somnolent and sleepy, tone is normal in all 4 extremities. The motor function and the sensory functions cannot be accurately assessed. Pupils are equal and reactive to light. No facial asymmetry. He has an adequate cough and a gag. EXTREMITIES: There is no peripheral edema. No clubbing, no cyanosis. Peripheral pulses are intact. - Labs CBC & Chem 7: 01/17/23 04:50 01/17/23 04:50 Labs: Abnormal Lab Results - Last 24 Hours (Table) 01/16/23 01/17/23 01/17/23 Range/Units 11:26 04:50 04:50 MCV 100.5 H (80.0-100.0) fL MCHC 30.5 L (31.0-37.0) g/dL Plt Count 142 L (150-450) k/uL Lymphocytes # 0.7 L (1.0-4.8) k/uL ABG pCO2 (35-45) mmHg ABG pO2 (83-108) mmHg ABG HCO3 (21-25) mmol/L ABG Total CO2 (19-24) mmol/L ABG O2 Saturation (94-97) % Carbon Dioxide 39 H (22-30) mmol/L BUN 49 H (9-20) mg/dL Glucose 113 H (74-99) mg/dL POC Glucose (mg/dL) 112 H (70-110) mg/dL Calcium 8.3 L (8.4-10.2) mg/dL 01/17/23 Range/Units 06:03 MCV (80.0-100.0) fL MCHC (31.0-37.0) g/dL Plt Count (150-450) k/uL Lymphocytes # (1.0-4.8) k/uL ABG pCO2 57 H (35-45) mmHg ABG pO2 69 L (83-108) mmHg ABG HCO3 38 H (21-25) mmol/L ABG Total CO2 39 H (19-24) mmol/L ABG O2 Saturation 93.1 L (94-97) % Carbon Dioxide (22-30) mmol/L BUN (9-20) mg/dL Glucose (74-99) mg/dL POC Glucose (mg/dL) (70-110) mg/dL Calcium (8.4-10.2) mg/dL Assessment and Plan Plan: In-hospital cardiac arrest requiring CPR and subsequent return of spontaneous circulation within approximately 5 minutes the patient was given epinephrine, bicarb and the patient also had a episode of VT, given amiodarone. It is likely that this started off with a respiratory arrest and following that the patient had a cardiac arrest/asystole. The patient remains stable on oral amiodarone at a dose of 200 mg once a day. Encephalopathy post cardiac arrest and the patient is currently off propofol, consider the possibility of a hypoxic encephalopathy post cardiac arrest. The patient has been off sedation and there is a delay in his neurologic recovery. The patient is noted to follow some simple commands today. CAT scan of the brain that was done on 01/13/2023 showed no acute abnormalities. Acute hypoxemic respiratory failure secondary to above requiring intubation and mechanical ventilatory support on 01/11/2023 Acute bilateral pneumonia with multifocal by the pulmonary infiltrates and sputum indicating gram-negative bacillus and the patient is currently on IV Zosyn. The sputum sample was positive for Citrobacter Chronic systolic heart failure with an ejection fraction of 45% Left lower lobe airspace disease as noted on the initial CAT scan of the chest, in addition to a large hiatal hernia is off pressors. Large hiatal hernia as noted on the initial CAT scan of the chest Acute COPD exacerbation on top of chronic COPD secondary to above Hypotension requiring pressor support, currently improved and off norepinephrine History of oxygen dependent chronic obstructive pulmonary disease Chronic and ongoing tobacco dependence Chronic atrial fibrillation, anticoagulated with Eliquis, maintain on a comb[place] of flecainide and amiodarone and the patient's current cardiac rhythm is sinus History of hypertension Hyperlipidemia Hypothyroidism History of bipolar disorder History of anxiety/depression History of marijuana use Plan: Keep the patient off sedation Monitor mental status and consider the possibility of anoxic encephalopathy. Continue IV Keppra and EEG showed no seizure activity Continue ventilator support, I'm also changing the the PEEP down to 7. The patient has gram-negative bacillus in his sputum , and this turned out to be Citrobacter and he is currently on IV Zosyn and this will be continued IV fluids to KVO DC IV Solu-Medrol to 40 mg every 12 hours, prednisone taper to be started Continue Lasix 40 milligrams IV every 12 hours Continue bronchodilators and systemic steroids Monitor enteral feeding reposition NGT Continue same cardiac medications Condition is critical and we'll continue to follow make further recommendations based on his progress. This evaluation was done in more than 30 minutes.
[2023-01-17] MEDS: FUROSEMIDE 10 MG/ML 2 ML VIAL IV SCH ×2 (10:07→21:02)
[2023-01-17] MEDS: CHLORHEXIDINE GLUCONATE 15 ML CUP MUCOUS MEM SCH ×2 (10:07→21:02)
[2023-01-17] MEDS: ASPIRIN 81 MG PO SCH (10:08)
[2023-01-17] MEDS: APIXABAN 5 MG TAB PO SCH ×2 (10:08→21:02)
[2023-01-17] MEDS: PANTOPRAZOLE 40 MG TABLET PO SCH (10:08)
[2023-01-17] MEDS: AMIODARONE 200 MG TAB PO SCH ×2 (10:08→21:02)
[2023-01-17] MEDS: DOCUSATE ORAL SOLN 100 MG/10 ML CUP PO SCH ×2 (10:10→21:02)
[2023-01-17] MEDS: NICOTINE 21MG/24HR PATCH TRANSDERM SCH (10:10)
[2023-01-17] MEDS: methylPREDNISolone SOD SUCCI 40 MG/ML 1 ML VIAL IV SCH ×2 (10:11→21:03)
[2023-01-17] MEDS: METOCLOPRAMIDE ORAL SOLN 10 MG/10 ML CUP PO SCH ×3 (10:11→21:38)
[2023-01-17] MEDS: levETIRAcetam IV 750 MG in SODIUM CHLORIDE 0.9% 100 ML IVPB SCH ×2 (10:11→21:03)
[2023-01-17] MEDS: LEVOTHYROXINE 125 MCG TAB PO SCH (10:12)
[2023-01-17] MEDS: METOPROLOL TARTRATE 25 MG TAB PO SCH ×2 (11:36→21:03)
[2023-01-17] MEDS: GABAPENTIN 100 MG CAP PO SCH ×3 (11:38→21:22)
--- NOTE | 2023-01-17 12:48 | P.PN ---
Progress Note - Text Progress Note Date: 01/17/23 Chief Complaint: Shortness of breath, chest pain This is a 67-year-old patient who follows with Dr. Alvin Villela. Chronic stable medical conditions include hyperlipidemia, hypothyroid, bipolar, atrial fibrillation. Patient is a smoker. COPD, CHF, bipolar, hiatal hernia Patient presented to the ER, brought in by the family because of shortness of breath and chest pain. In the last 3 weeks apparently patient fallen about 3 times. No fever no chills. Some palpitations. Increasing lower extremity edema. Nonproductive cough. Late in the afternoon patient was found to be in PEA. Code team was called. Patient did require epinephrine. intubated. FiO2 100 and PEEP of 5. Patient have a broad complex tachycardia. Spray Rig Operator Dr. Steve was informed. Admitted with acute COPD exacerbation, acute CHF exacerbation, acute hypoxic hypercapnic respiratory failure. Intubated. 01/12/2023: ICU. Drips include IV propofol, Levophed. Patient sedated. Telemetry shows sinus rhythm. FiO2 70 to PEEP of 5. Patient seen by button sawyer Dr. Valdes. IV Lasix has been discontinued. IV fluids. 01/13/2023: ICU. Intubated. FiO2 70 PEEP of 10. Drips include propofol and norepinephrine. 2 feeding at 40 mL an hour. Patient went into A. fib with rapid ventricle rate yesterday. Was put on IV Cardizem and IV amiodarone. Went back into sinus rhythm. There was some concern about neuro status change for which neurology was consulted, pending computed tomography scan. No focal weakness. His started on IV Keppra per neurology 01/14/2023: ICU. Intubated. FiO2 70 PEEP of 10. Patient is off levo fed since this morning. On IV propofol. OG tube for feeding at 60 mL an hour. Significant secretions checks x-ray showing infiltrate. His started on IV Zosyn. and daughter the bedside. Discussed. Eliquis. Cordarone. IV Solu-Medrol. IV Keppra. 01/15/2023: ICU. Intubated. FiO2 70 PEEP of 10. 2 feeding. Telemetry sinus rhythm. OG tube feeding. Patient has remained off levo fed. IV Zosyn. IV Keppra. 01/16/2023: ICU. Intubated. FiO2 50 PEEP of 7. Sinus rhythm. Sedation holiday today. Getting 2 feeding. 01/17/2023: ICU. Intubated. FiO2 50 PEEP of 7. OG tube feeding. At 30 mL an hour. Sinus rhythm. Oral amiodarone. Eliquis. IV Lasix 20 mg every 12. IV Keppra. IV Zosyn. Remains off levo fed. Off propofol. Active Medications Acetaminophen (Acetaminophen Tab 325 Mg Tab) 650 mg PO Q4HR PRN PRN Reason: Mild Pain or Fever > 100.5 Albuterol Sulfate (Albuterol Nebulized 2.5 Mg/3 Ml) 2.5 mg INHALATION RT-Q4H [facility] Last Admin: 01/17/23 11:46 Dose: 2.5 mg Amiodarone HCl (Amiodarone 200 Mg Tab) 200 mg PO BID [facility] Last Admin: 01/17/23 10:08 Dose: 200 mg Apixaban (Apixaban 5 Mg Tab) 5 mg PO BID [facility]; Protocol Last Admin: 01/17/23 10:08 Dose: 5 mg Aspirin (Aspirin 81 Mg) 81 mg PO DAILY [facility] Last Admin: 01/17/23 10:08 Dose: 81 mg Budesonide (Budesonide 1 Mg/2 Ml Nebu) 1 mg INHALATION RT-BID [facility] Last Admin: 01/17/23 08:23 Dose: 1 mg Chlorhexidine Gluconate (Chlorhexidine Gluconate 15 Ml Cup) 15 ml MUCOUS MEM BID [facility] Last Admin: 01/17/23 10:07 Dose: 15 ml Docusate Sodium (Docusate Oral Soln 100 Mg/10 Ml Cup) 100 mg PO BID [facility] Last Admin: 01/17/23 10:10 Dose: 100 mg Formoterol Fumarate (Formoterol Fumarate 20 Mcg/2 Ml Nebu) 20 mcg INHALATION RT-BID [facility] Last Admin: 01/17/23 08:23 Dose: 20 mcg Furosemide (Furosemide 10 Mg/Ml 2 Ml Vial) 20 mg IV Q12HR [facility] Last Admin: 01/17/23 10:07 Dose: 20 mg Gabapentin (Gabapentin 100 Mg Cap) 200 mg PO TID [facility] Last Admin: 01/17/23 11:38 Dose: 200 mg Hydromorphone HCl (Hydromorphone 1 Mg/Ml 1 Ml Syringe) 1 mg IVP Q4HR PRN PRN Reason: MODERATE TO SEVERE PAIN (4-10) Propofol 1,000 mg/ IV Solution 100 mls @ 9.757 mls/hr IV .[id number] [facility]; Protocol Last Titration: 01/16/23 10:53 Dose: 0 mcg/kg/min, 0 mls/hr Norepinephrine Bitartrate 4 mg (/ Sodium Chloride) 254 mls @ 12.391 mls/hr IV .[id number] [facility]; Protocol Last Admin: 01/17/23 02:08 Dose: Not Given Levetiracetam 750 mg/ Sodium (Chloride) 107.5 mls @ 400 mls/hr IVPB Q12HR [facility] Last Admin: 01/17/23 10:11 Dose: 400 mls/hr Piperacillin Sod/Tazobactam (Sod 3.375 gm/ Sodium Chloride) 100 mls @ 25 mls/hr IVPB Q8HR [facility]; Protocol Last Admin: 01/17/23 09:47 Dose: 25 mls/hr Lactated Ringer's (Lactated Ringers) 1,000 mls @ 20 mls/hr IV .Q24H [facility] Last Admin: 01/16/23 10:14 Dose: 20 mls/hr Insulin Aspart (Insulin Aspart (Novolog) 100 Unit/Ml Vial) 0 unit SQ Q6HR [facility]; Protocol Last Admin: 01/17/23 06:08 Dose: Not Given Ipratropium [place] (Ipratropium 0.5 Mg/2.5 Ml Nebu) 0.5 mg INHALATION RT-Q4H [facility] Last Admin: 01/17/23 11:46 Dose: 0.5 mg Latanoprost (Latanoprost 0.005% Ophth Drops 2.5 Ml Btl) 1 drops LEFT EYE HS [facility] Last Admin: 01/16/23 21:02 Dose: 1 drops Levothyroxine Sodium (Levothyroxine 125 Mcg Tab) 125 mcg PO DAILY@0630 [facility] Last Admin: 01/17/23 10:12 Dose: 125 mcg Lisinopril (Lisinopril 2.5 Mg Tab) 2.5 mg PO BID [facility] Last Admin: 01/17/23 11:36 Dose: Not Given Methylprednisolone Sodium Succinate (Methylprednisolone Sod Succi 40 Mg/Ml 1 Ml Vial) 40 mg IV Q12HR [facility] Last Admin: 01/17/23 10:11 Dose: Not Given Metoclopramide HCl (Metoclopramide Oral Soln 10 Mg/10 Ml Cup) 10 mg PO TID [facility] Last Admin: 01/17/23 10:11 Dose: 10 mg Metoprolol Tartrate (Metoprolol Tartrate 25 Mg Tab) 75 mg PO BID [facility] Last Admin: 01/17/23 11:36 Dose: Not Given Miscellaneous Information (Potassium Replacement Protocol 1 Each Misc) 1 each MISCELLANE DAILY PRN; Protocol PRN Reason: Per Protocol Miscellaneous Information (Potassium Replacement Protocol 1 Each Misc) 1 each MISCELLANE DAILY PRN; Protocol PRN Reason: Per Protocol Naloxone HCl (Naloxone 0.4 Mg/Ml 1 Ml Vial) 0.2 mg IVP Q2M PRN PRN Reason: Opioid Reversal Nicotine (Nicotine 21mg/24hr Patch) 1 patch TRANSDERM DAILY [facility] Last Admin: 01/17/23 10:10 Dose: 1 patch Olanzapine (Olanzapine 10 Mg Tab) 20 mg PO HS [facility] Last Admin: 01/16/23 21:03 Dose: 20 mg Pantoprazole Sodium (Pantoprazole 40 Mg Tablet) 40 mg PO DAILY [facility] Last Admin: 01/17/23 10:08 Dose: Not Given Past medical history to include: COPD, hyperlipidemia, hypothyroid, bipolar, atrial fibrillation, bipolar, CHF, he had hernia Social history: Lives with sister Marifer, smokes a pack a day for many years, no alcohol Physical examination: VITAL SIGNS: 99.2, 70, 26, 150/66, 91% on ventilator GENERAL:laying in bed, intubated EYES: Pupils equal. Conjunctiva normal. HEENT: External appearance of nose and ears normal, oral cavity grossly normal. Endotracheal tube. OG tube feeding NECK: JVD is able to assess; masses not palpable. HEART: First and second heart sounds are normal; edema present LUNGS: Respiratory rate increased; decreased breath sounds ABDOMEN: Soft, nontender, liver spleen not palpable, no masses palpable. PSYCH: Sedated MUSCULOSKELETAL:No Clubbing/cyanosis;muscles-grossly intact. Evidence of OA INVESTIGATIONS, reviewed in the clinical context: 01/17/2023: White count 9.5 hemoglobin 14.9 platelets 142 potassium 4.9 crea tinine 1.02 Sputum culture: Citrobacter koseri 01/16/2023: White count 9.9 hemoglobin 15.1 platelets 137 potassium 4.8 creatinine 1.13 01/15/2023: White count 11.4 hemoglobin 14.9 platelets 139 potassium 4.5 creatinine 0.95 EEG: Encephalopathy. No seizure activity. 01/14/2023: White count 15.6 hemoglobin 15.1 platelets 160 potassium 4.3 BUN 30 creatinine 1.07 01/13/2023: White count 7.19 globin 16.2 potassium 3.9 BUN 23 creatinine 1.03 troponin I 0.016 proBNP 1150 2-D echocardiogram: EF 45-50%. Right ventricle dilatation, right ventricular hypertrophy 01/12/2023: White count 13.9 hemoglobin 16.2 platelets 123 potassium 3.7 creatinine 1.19 cortisol 22 TSH 0.548 White count 10.6 hemoglobin 16.4 platelets 153 potassium 3.1 BUN 24 creatinine 1.4 to AST 79 ALT 65 Procalcitonin 0.08 ABG: PH 7.18 pCO2 102 pO2 153 EKG tracing personally reviewed by me-normal sinus rhythm. Intraventricular block. Poor R-wave progression. Chest x-ray film personally reviewed by me-large hiatal hernia. Cardiomegaly. Venous prominence. Assessment and plan: -Acute hypoxic and hypercapnic respiratory failure secondary to COPD exacerbation and CHF exacerbation: Slow to respond Patient on ventilator assist. 50% FiO2 -Paroxysmal atrial fibrillation flutter, had an episode of rapid rate - Back in sinus rhythm Telemetry. Eliquis 5 mg twice a day. Lopressor 75 mg twice a day flecainide- discontinued. Cordarone. -Possible seizure per neurology. On Keppra. EEG negative for seizure activity -Possible aspiration pneumonia, culture positive for Citrobacter koseri IV Zosyn -Acute COPD exacerbation in a current smoker Albuterol 4 times a day.. IV Solu-Medrol. Nebulized Perforomist and Pulmicort, -Acute on Chronic congestive heart failure from systolic dysfunction EF 45-50%- IV Lasix 20 mg every 12 -Hypothyroid Levothyroxine 125 g a day -Essential hypertension Zestril 2.5 twice a day. Lopressor 75 mg twice a day -Cardiogenic shock: Better Taken off off levo fed -OG tube feeding -Chronic nicotine dependence, cigarette smoker Nicotine patch -Bipolar disorder Zyprexa 20 mg daily at bedtime. -Full code . .. Bronchodilators. Steroids. IV Keppra. IV Zosyn eliquis. Amiodarone. Ventilated. Continue supportive care.
[2023-01-17 12:49] LABS: Glucose,Whole Blood 80 mg/dL (70-110)
[2023-01-17] MEDS: LACTATED RINGERS 1,000 ML IV SCH (12:51)
[2023-01-17 18:05] LABS: Glucose,Whole Blood 86 mg/dL (70-110)
[2023-01-17] MEDS: LATANOPROST 0.005% OPHTH DROPS 2.5 ML BTL LEFT EYE SCH (21:03)
[2023-01-17] MEDS: OLANZapine 10 MG TAB PO SCH (21:04)
--- NOTE | 2023-01-17 22:32 | P.PN ---
Subjective Progress Note Date: 01/17/23 01/17/2023: Patient was seen for a follow-up. Patient's 2 sisters including Marifer was present. Patient has been off sedation since 11 AM yesterday. Patient started waking up. Neurologically he is making much progress. He is still on 70% FiO2. The PEEP has been decreased. 01/16/2023: Patient was seen for a follow-up. Patient is off sedation since 11 AM today. Now 2:35 PM. Patient is intubated, minimal response as per examination below. No obvious seizure activity. His PEEP was decreased and O2 requirement. 01/15/2023: Patient initially seen by Dr. Chuy Steve. Please refer to his note for details. Patient is a 67-year-old male who came for shortness of breath. Patient had a cardiac arrest for 5 minutes and ?seizure witnessed by the nurse. Patient currently on Keppra 750 mg twice a day. EEG was negative for any seizures but patient has severe encephalopathy. CT head was reported as negative. Patient at present is on propofol 40 mcg/kg/m. Some other workup during the hospital visit consisted of Initial ABGs of pH is 7.18 predominantly hypercapnic. PH has normalized but the pCO2 was 67 bicarbonate is 37 Initial creatinine is 1.56 but it's trending down sodium on presentation 132 but it's improved magnesium is normal AST most recent 79 ALT 65 TSH is 0.548 2D echo was reported as poor quality study left ventricle size is normal there is mild global decrease in contractility noted. Endocardial margins are poorly seen. Occult contrast was not used. There is mild mitral annular calcification and aortic sclerosis. Sinus rhythm with first-degree AV block with frequent suburban ventricular premature complex. Possible left atrial enlargement. Possible right ventricular hypertrophy. Ammonia level is 30 (normal is <30). EEG: Is abnormal. The background slowing is suggestive of severe encephalopathy. Otherwise no focal slowing, epitleptiform discharge or seizure on the EEG. CT head is reported as negative. No change. Objective - Vital Signs Vital signs: Vital Signs Temp 98.7 F 01/17/23 12:00 Pulse 69 01/17/23 12:00 Resp 23 01/17/23 12:00 BP 104/66 01/17/23 05:00 Pulse Ox 91 L 01/17/23 12:00 FiO2 50 01/17/23 10:54 Intake & Output 01/16/23 01/17/23 01/17/23 18:59 06:59 18:59 Intake Total 382.087 7048 560 Output Total 2370 2910 1500 Balance -1390.249 -1870 -940 Intake: IV 465 440 240 Lactated Ringers 500 ml @ 240 240 40 20 mls/hr IV .Q24H [facility] Rx#:[id number] Piperacillin-Tazobactam 3 125 100 100 .375 gm In Sodium Chloride 0.9% 100 ml @ 25 mls/hr IVPB Q8HR [facility] Rx# :[id number] levETIRAcetam IV 750 mg 100 100 100 In Sodium Chloride 0.9% 100 ml @ 400 mls/hr IVPB Q12HR [facility] Rx#:[id number] Intake, IV Titration 94.751 80 Amount Lactated Ringers 1,000 ml 80 @ 20 mls/hr IV .Q24H [facility] Rx#:[id number] propofoL 1,000 mg In 94.751 Empty Bag 1 bag @ 15 MCG/ KG/MIN 9.757 mls/hr IV . [id number] [facility] Rx#:[id number] Tube Feeding 360 360 210 Other 60 240 30 Output: Urine 2370 2910 1500 Other: Voiding Method Indwelling Catheter Indwelling Catheter ABP, PAP, CO, CI - Last Documented Arterial Blood Pressure 108/63 - Exam On examination patient is intubated, off sedation since 11 AM yesterday. Patient is responding much better. He is trying to open his eyes to calling his name. He is making eye contact, following directions as below. He is nodding appropriately. His pupils are equal, 4 mm reacting to 3 mm bilaterally. Extraocular muscles are intact. Corneals are present. No obvious seizure activity noted. Patient has at least 4-tightener strength bilaterally. He is wiggling his toes on commands, consistently. Slow mentation. Patient has a lot of bruises on his forearms. Patient has moderate peripheral edema. Reflexes are absent. Plantars are flat. Tone is normal in the arms and legs. Cerebellar functions cannot be assessed. - Labs CBC & Chem 7: 01/17/23 04:50 01/17/23 04:50 Labs: Abnormal Lab Results - Last 24 Hours (Table) 01/17/23 01/17/23 01/17/23 Range/Units 04:50 04:50 06:03 MCV 100.5 H (80.0-100.0) fL MCHC 30.5 L (31.0-37.0) g/dL Plt Count 142 L (150-450) k/uL Lymphocytes # 0.7 L (1.0-4.8) k/uL ABG pCO2 57 H (35-45) mmHg ABG pO2 69 L (83-108) mmHg ABG HCO3 38 H (21-25) mmol/L ABG Total CO2 39 H (19-24) mmol/L ABG O2 Saturation 93.1 L (94-97) % Carbon Dioxide 39 H (22-30) mmol/L BUN 49 H (9-20) mg/dL Glucose 113 H (74-99) mg/dL Calcium 8.3 L (8.4-10.2) mg/dL Assessment and Plan Assessment: This is a 67-year-old gentleman who presented because of the severe shortness of breath and dyspnea. In the emergency department he had that cardiopulmonary arrest requiring CPR for 5 minutes. Status post Cardiopulmonary arrest Altered mental status, likely due to hypoxic and metabolic encephalopathy. Patient's mentation much improving. Patient is following commands. EEG is negative for seizure or discharge and CT head is negative. Probable Seizure due to his cardiopulmonary arrest (reported had shaking of all extremities, unequal pupils and tongue bite)--resolved with 2mg Ativan Cardiogenic shock on Norepi Severe shortness of breath with dyspnea. On a ventilator after the cardiopulmonary arrest Acute kidney injury--resolved History of Atrial fibrillation on eliquis History of possible stroke behind the left eye Of hypertension Hyperlipidemia Hypothyroidism Nicotine dependence Plan: Patient is showing remarkable clinical improvement. He is waking up, following directions appropriately. Still generalized weak. Continue Keppra 750mg every 12 hours for seizure. Every hour neuro checks Please avoid any hypotensive episode We'll defer the rest of the medical management to primary team We will follow clinically. Discussed with patient's nurse. Discussed with patient's sisters, and updated about above condition.
[2023-01-17 23:14] LABS: Glucose,Whole Blood 84 mg/dL (70-110)
[2023-01-18] MEDS: IPRATROPIUM 0.5 MG/2.5 ML NEBU INHALATION SCH ×6 (00:45→20:36)
[2023-01-18] MEDS: ALBUTEROL NEBULIZED 2.5 MG/3 ML INHALATION SCH ×6 (00:45→20:36)
[2023-01-18 04:55] LABS: Basophils % (A) 0 %; Eosinophils # (A) 0.1 k/uL (0-0.7); Eosinophils % (A) 1 %; HCT 50.1 % (39.0-53.0); HGB 15.5 gm/dL (13.0-17.5); Hypochromasia Slight; Lymphocytes # (A) 0.7 k/uL (1.0-4.8); Lymphocytes % (A) 7 %; MCH 31.5 pg (25.0-35.0); MCHC 30.9 g/dL (31.0-37.0); MCV 101.8 fL (80.0-100.0); Macrocytosis Slight; Mean Platelet Volume 10.6; Monocytes # (A) 0.6 k/uL (0-1.0); Monocytes % (A) 6 %; Neutrophils # (A) 8.7 k/uL (1.3-7.7); Neutrophils % (A) 86 %; Platelet Count 131 k/uL (150-450); RBC 4.92 m/uL (4.30-5.90); RDW 13.8 % (11.5-15.5); WBC 10.2 k/uL (3.8-10.6)
[2023-01-18 05:05] LABS: Calcium 8.1 mg/dL (8.4-10.2); Potassium 5.2 mmol/L (3.5-5.1)
[2023-01-18 05:30] LABS: Glucose,Whole Blood 105 mg/dL (70-110)
[2023-01-18] MEDS: INSULIN ASPART (NovoLOG) 100 UNIT/ML VIAL SQ SCH ×3 (05:34→18:37)
[2023-01-18 05:52] LABS: ABG Base Excess 9.1 mmol/L; ABG HCO3 34 mmol/L (21-25); ABG Oxygen Saturation 94.3 % (94-97); ABG PCO2 55 mmHg (35-45); ABG PO2 77 mmHg (83-108); ABG TCO2 36 mmol/L (19-24); Allen Test Performed? Yes
[2023-01-18] MEDS: LEVOTHYROXINE 125 MCG TAB PO SCH (06:03)
--- NOTE | 2023-01-18 07:04 | P.PN ---
Subjective Progress Note Date: 01/18/23 PROGRESS NOTE The patient is a 67-year-old male with known history of atrial fibrillation, anticoagulated, chronic obstructive lung disease, marijuana use, bipolar disorder, hypertension and hyperlipidemia who presented with worsening dyspnea. He had a cardiac arrest with nonsustained VT, he was intubated and transferred to the ICU. His echocardiogram was reported showing an ejection fraction of 45-50%. The patient remains intubated and sedated, off norepinephrine. Hemodynamically he is stable. His urinary output is stable. There is no evidence of ventricular tachycardia. January 16: The patient remains intubated and sedated. Hemodynamically stable. He has no evidence of ventricular ectopic activity. He has evidence of respiratory failure with bilateral pneumonia. His urinary output is good. He has a prior history of COPD. He has mild cardiomyopathy on the echocardiogram. There is a history of paroxysmal atrial fibrillation, on amiodarone. His flecainide has been stopped. He is in sinus mechanism at this time. January 17: The patient remains intubated and sedated, hemodynamically stable. There is no evidence of ventricle tachycardia. His urinary output has been stable. He has no malignant arrhythmia. He is tolerating his present regimen of PANTERA inhibitor and beta jazmin. He continues to be on amiodarone. He is receiving nutrition per NG tube. He continues to be sedated on propofol. His EKG showed severe encephalopathy January 18: The patient remains intubated, responding to verbal stimulation, following verbal command. On no vasopressors. He has good urinary output continues to be in sinus mechanism. He has no evidence of malignant arrhythmia. His blood pres sure is stable. His oxygenation is improving. Medications: Amiodarone 200 mg twice a day, aspirin once a day, metoprolol 75 mg twice a day, levothyroxine, methylprednisolone, Eliquis 5 mg twice a day, Lasix 20 mg IV every 12 hours, lisinopril 2.5 mg twice a day PHYSICAL EXAMINATION: Blood pressure 104/60 heart rate 60, intubated, following verbal commands LUNGS: Clear to auscultation anteriorly HEART: Regular rate and rhythm, S1, S2. No S3. systolic ejection murmur ABDOMEN: Soft, positive bowel sounds, no organomegaly EXTREMETIES: Trace edema LAB: Hemoglobin of 13.5, potassium 5.2, BUN 50, creatinine 1.04 IMPRESSION: 1. Cardiac arrest with respiratory failure, no evidence of acute coronary syndrome, cardiac arrest most likely secondary to the respiratory failure and the pneumonia, improving 2. History of atrial fibrillation, anticoagulated, maintaining sinus mechanism 3. History of COPD and chronic tobacco use 4. History of hypertension PLAN: 1. Continue present dose of beta jazmin and PANTERA inhibitor 2. Follow renal functions and if stable decreased diuretics tomorrow 3. Hopefully wean and extubate today 4. Depending on his progress further recommendations will be made Objective - Vital Signs Vital signs: Vital Signs Temp 98.8 F 01/18/23 04:00 Pulse 59 L 01/18/23 06:00 Resp 18 01/18/23 06:00 BP 104/66 01/18/23 06:00 Pulse Ox 92 L 01/18/23 06:00 FiO2 60 01/18/23 04:00 Intake & Output 01/17/23 01/18/23 01/18/23 18:59 06:59 18:59 Intake Total 840 670 Output Total 2360 1875 Balance -1520 -1205 Intake: IV 240 Lactated Ringers 500 ml @ 40 20 mls/hr IV .Q24H [facility] Rx#:[id number] Piperacillin-Tazobactam 3 100 .375 gm In Sodium Chloride 0.9% 100 ml @ 25 mls/hr IVPB Q8HR [facility] Rx# :[id number] levETIRAcetam IV 750 mg 100 In Sodium Chloride 0.9% 100 ml @ 400 mls/hr IVPB Q12HR [facility] Rx#:[id number] Intake, IV Titration 180 220 Amount Lactated Ringers 1,000 ml 180 220 @ 20 mls/hr IV .Q24H [facility] Rx#:[id number] Tube Feeding 360 330 Other 60 120 Output: Urine 2360 1875 Other: Voiding Method Indwelling Catheter Indwelling Catheter ABP, PAP, CO, CI - Last Documented Arterial Blood Pressure 95/50 - Labs CBC & Chem 7: 01/18/23 04:30 01/18/23 04:30 Labs: Abnormal Lab Results - Last 24 Hours (Table) 01/18/23 01/18/23 01/18/23 Range/Units 04:30 04:30 05:48 MCV 101.8 H (80.0-100.0) fL MCHC 30.9 L (31.0-37.0) g/dL Plt Count 131 L (150-450) k/uL Neutrophils # 8.7 H (1.3-7.7) k/uL Lymphocytes # 0.7 L (1.0-4.8) k/uL ABG pCO2 55 H (35-45) mmHg ABG pO2 77 L (83-108) mmHg ABG HCO3 34 H (21-25) mmol/L ABG Total CO2 36 H (19-24) mmol/L Potassium 5.2 H (3.5-5.1) mmol/L Carbon Dioxide 34 H (22-30) mmol/L BUN 50 H (9-20) mg/dL Glucose 121 H (74-99) mg/dL Calcium 8.1 L (8.4-10.2) mg/dL
--- NOTE | 2023-01-18 07:27 | XR ---
EXAMINATION TYPE: XR chest 1V portable DATE OF EXAM: 01/18/2023 Comparison: 01/17/2023 Clinical History: 67-year-old male assess lungs Findings: ET tube tip just below the level of the medial clavicular heads. NG tube courses down and then deviat es towards the left along the retrocardiac region with tip at the left base. There has been some inte rval improvement in aeration at the right base. Ongoing prominent retrocardiac and left basilar opaci ty no this density also shows improvement at the mid lung level. Left CVC tip at the mid SVC level. Impression: 1. Similar leftward deviation of the NG tube to the left base, within a very large hiatal hernia. The re may have been some slight withdrawal of the NG tube in the interval. 2. Improved aeration at the right base. Some improvement in aeration at the left midlung. Prominent r etrocardiac and left basilar opacity persists, some of which corresponds to the large hiatal hernia.
[2023-01-18] MEDS: BUDESONIDE 1 MG/2 ML NEBU INHALATION SCH ×2 (08:32→20:36)
[2023-01-18] MEDS: FORMOTEROL FUMARATE 20 MCG/2 ML NEBU INHALATION SCH ×2 (08:32→20:36)
[2023-01-18] MEDS: PIPERACILLIN-TAZOBACTAM 3.375 GM in SODIUM CHLORIDE 0.9% 100 ML IVPB SCH ×2 (09:02→16:20)
[2023-01-18] MEDS: levETIRAcetam IV 750 MG in SODIUM CHLORIDE 0.9% 100 ML IVPB SCH ×2 (09:02→20:28)
[2023-01-18 09:03] LABS: ABG Base Excess 8.8 mmol/L; ABG HCO3 34 mmol/L (21-25); ABG Oxygen Saturation 92.5 % (94-97); ABG PCO2 54 mmHg (35-45); ABG PO2 68 mmHg (83-108); ABG TCO2 35 mmol/L (19-24)
[2023-01-18] MEDS: GABAPENTIN 100 MG CAP PO SCH ×3 (09:04→23:02)
[2023-01-18 09:05] LABS: Allen Test Performed? no
[2023-01-18] MEDS: ASPIRIN 81 MG PO SCH (09:05)
[2023-01-18] MEDS: CHLORHEXIDINE GLUCONATE 15 ML CUP MUCOUS MEM SCH ×2 (09:05→20:15)
[2023-01-18] MEDS: FUROSEMIDE 10 MG/ML 2 ML VIAL IV SCH ×2 (09:05→20:27)
[2023-01-18] MEDS: AMIODARONE 200 MG TAB PO SCH ×2 (09:06→20:27)
[2023-01-18] MEDS: APIXABAN 5 MG TAB PO SCH ×2 (09:06→20:27)
[2023-01-18] MEDS: methylPREDNISolone SOD SUCCI 40 MG/ML 1 ML VIAL IV SCH ×2 (09:06→20:26)
[2023-01-18] MEDS: METOCLOPRAMIDE ORAL SOLN 10 MG/10 ML CUP PO SCH ×3 (09:07→21:35)
[2023-01-18] MEDS: METOPROLOL TARTRATE 25 MG TAB PO SCH ×2 (09:07→20:26)
[2023-01-18] MEDS: DOCUSATE ORAL SOLN 100 MG/10 ML CUP PO SCH ×2 (09:07→20:27)
[2023-01-18] MEDS: PANTOPRAZOLE 40 MG TABLET PO SCH (09:07)
[2023-01-18] MEDS: NICOTINE 21MG/24HR PATCH TRANSDERM SCH (09:07)
--- NOTE | 2023-01-18 11:11 | P.PN ---
Subjective Progress Note Date: 01/18/23 67-year-old male patient was being seen on follow-up on 01/15/2023. The patient is currently intubated on a mechanical ventilator. The patient is known to have COPD and chronic hypoxic respiratory failure in addition to multiple comorbidities including atrial fibrillation, hypertension, hypothyroidism, bipolar disorder and is a chronic smoker. He came into the emergency department because of worsening shortness of breath. In the ED, the patient a cardiac arrest for approximately 5 minutes and he was resuscitated after being given epinephrine 3 and bicarb. He did encounter some nonsustained VT and he was given amiodarone. Following that, he was transferred to the intensive care unit. He did encounter some seizure activity following his cardiac arrest. This morning, the patient remains on propofol which is running at 40 mcg/kg/m. His calm and comfortable and symptoms of mechanical ventilator. He remains on assist-control mode of mechanical ventilation at the rate of 24, tidal volume of 450, FiO2 of 70% and a PEEP of 10. Chest x-ray showing bilateral lower lobe effusion/consolidation. The ET tube needs to be adjusted and pushed him by another 1 cm.. No significant orotracheal secretions at this point in time. The patient does have multifocal airspace disease mainly in the lower lobes. The patient has a blood gas that shows a pH of 7.4 with a pCO2 of 61 and pO2 of 80. His peak airway pressure is 26 on the mechanical ventilator. He is on IV fluids and currently is on lactated Ringer at the rate of 75 mL an hour. His WBC count is at 11.4 with a hemoglobin of 14.9 and a platelet count of 139. Sodium is at 139 with a potassium level of 4.5, bicarb is at 37 BUN is at 39 with a creatinine of 0.9. His proBNP level at time of admission was 1590 and it gradually dropped. His sputum is positive for gram-negative bacillus and the patient is currently on IV Zosyn. His cardiac rhythm is currently sinus. He is on amiodarone 200 mg by mouth twice a day, and flecainide 50 mg by mouth twice a day. He has been also on long-term anticoagulation with Eliquis. He remains on bronchodilators. He remains on IV Solu-Medrol. Antibiotic coverage with IV Zosyn. He was started on IV Keppra regarding his seizure activity. Neurology is on the case. EEG was done on 01/13/2023 and it showed severe encephalopathy. No seizure activity was noted otherwise. His echocardiogram that was done on 01/12/2023 showed poor LV function which was in the order of ejection fraction of 45%. There was evidence of RV dilatation. There was evidence of RV hypertrophy. There was normal RV function. There is also grade 1 diastolic dysfunction. The patient is also on vital high-protein which is running at 60 mL an hour and is having and encountering high residuals. CAT scan of the brain was essentially negative. On today's evaluation of 01/16/2023, the patient is being seen in follow-up. The patient remains intubated on a mechanical ventilator. There is a case of pneumonia with respiratory failure and subsequent cardiac arrest. This morning, the patient is still on propofol which is running at 25 mcg/kg/m. Noted the patient was given a sedation holiday yesterday. He did not fully recover. He became restless and agitated and asynchronous a mechanical ventilator. He was not following any commands. The holiday was aborted and the patient was placed back on propofol. The same will be done today. He remains on a mechanical ventilator. Assist-control mode at the rate of 24, tidal volume of 450, FiO2 of 60% with a PEEP of 10. PH is at 7.4 with a pCO2 of 64 and pO2 of 76. Chest x- ray showing a large hiatal hernia. The patient has bibasilar atelectasis and infiltrates, essentially unchanged compared to yesterday. The sputum is positive for Citrobacter and the patient is currently covered with IV Zosyn which is appropriate for the time being. No significant orotracheal secretions. The patient is also on Ventolin about treatments [id number], is also on a combination of Pulmicort and Perforomist nebulized treatments. He is receiving IV Solu-Medrol at a dose of 40 mg every 12 hours. I wean the Solu-Medrol yesterday the patient is less bronchospastic and wheezy as is recovering from an acute COPD exacerbation. Hemodynamically, the patient is in normal sinus rhythm. The patient is hemodynamically stable on no pressors. The patient r emains on Lasix 20 mg IV every 12 hours. The patient has been in negative fluid balance of 1 L over the past 24 hours. As such, diuretics will be continued. BUN is at 47 with a creatinine of 1.1 and sodium level is at 141. The WBC count is at 9.9 with a hemoglobin of 15 and a platelet count of 137. We are having ongoing issues with enteral feeding. The patient is a large hiatal hernia. He was having high residuals probably related to his hiatal hernia. Currently, he is on enteral feeding with vital high-protein at the rate of 30 mL an hour. He was also given Reglan. The OG tube may need to be repositioned. He is having issues with hypertension. He is currently on a combination of metoprolol 75 mg by mouth twice a day, diuretics also will help him with his blood pressure control, in combination with lisinopril 2.5 mg by mouth daily.. He is also on amiodarone as the patient did encounter nonsustained V. tach. His echo cardiac exam showed an ejection fraction of 45%, grade 1 diastolic heart failure, evidence of RV hypertrophy and dilation. 01/17/2023, patient is being seen in follow-up in the intensive care unit. Noted the patient is currently intubated on a mechanical ventilator. There was a concern of encephalopathy post cardiac arrest. His cardiac arrest was rather brief. The patient was taken off sedation yesterday at around 11 AM and the patient is still very much somnolent and sleepy. Nevertheless, upon repeated stimulation, he is able to follow some simple commands. He would open up his eyes spontaneously and he would squeeze using his hands. Nevertheless, his response is not consistent and is quite somnolent and lethargic and sleepy still. He remains off sedation. Is able to tolerate the mechanical ventilator reveal well and the patient this morning is on assist control mode at the rate of 24, tidal volume of 450, FiO2 of 50% with a PEEP of 8. His pulse ox was 90- 93%. Blood gas showed a pH of 7.43 with a pCO2 of 57 and pCO2 of 69. His chest x-ray reveals a large hiatal hernia and we are seeing the NG tube coiling up into his stomach and is up in the chest. There is evidence of pleural effusion bibasilar pulmonary infiltrates/atelectasis. I would say, the chest x-ray findings somewhat suboptimal due to the large hiatal hernia and its present in his left chest. Meanwhile, his sputum sample was positive for Citrobacter. The patient remains on IV antibiotics and the patient is currently on IV Zosyn. Minimal respiratory secretions for now. Gas was noted. PEEP will be dropped onto 7. At the same time, the patient remains on bronchodilators. I was able to wean down his Solu-Medrol as the patient had a component of acute COPD exacerbation. He is obviously much less bronchospastic and wheezy and the patient remains on Solu-Medrol 40 mg every 12 hours in addition to his routine bronchodilators. Hemodynamically, he is stable. He was an obvious fluid overload and the patient is currently being diuresed. Overall fluid balance over the past 24 hours is -3.2 L as the patient is receiving Lasix 40 mg IV every 12 hours. His net fluid balance is negative. BUN is at 49 with a creatinine of 1.02. Sodiums of 143 with a potassium level of 4.9 and a bicarb level of 39. The white cell count is at 9.5 with a hemoglobin of 14.9 and a platelet count of 142. He is continuing his enteral feeding. I think the OG tube may need to be pulled out slightly and reposition. He is currently on vital high-protein at 30 mL an hour. His current cardiac rhythm is sinus. He remains on amiodarone as the patient encountered nonsustained V. tach and the time of his cardiac arrest. He is currently on oral amiodarone 200 mg by mouth twice a day. He remains on long-term anticoagulation with Eliquis 5 mg by mouth twice a day. His echo cardiac exam showed grade 1 diastolic heart failure with an ejection fraction of 45%. Rhythm is sinus. 01/18/2023, the patient is being seen for a follow-up. The patient has been off sedation for the past 48 hours. He is lethargic. He is arousable and is following simple commands. On today's evaluation, he was able to communicate and follow simple commands. He remains on a mechanical ventilator on assist control mode and currently is on a rate of 24 with a tidal volume of 450 with a PEEP of 7 and FiO2 of 60%. The blood gas shows a pH of 7.4 with episodes of 55 and a pO2 of 77. The chest x-ray shows improvement in aeration of the right lung. There is a large hiatal hernia the left. He remains on IV Lasix. The fluid balance over the past 24 hours is -2.8 L. Meanwhile, the patient is doing well. Hemodynamically stable, and the patient is a BUN of 50 with a creatinine of 1.4. The rest of the blood work is essentially within normal. The patient is a WBC count of 10.2 with a hemoglobin of 15.7 and a platelet count of 131. The patient remains on IV Zosyn. The patient continues to receive enteral feeding for nutritional support and the patient remains on vital high-protein. His cardiac rhythm remained sinus and the patient remains on amiodarone 200 mg twice a day. He remains on anticoagulation with Eliquis 5 mg by mouth twice a day. I checked a baseline weaning parameters of the bedside and following this was patient to a pressure support of 5 and a PEEP of 5 with an FiO2 of 50% and and possible extubation today. This will depend on his overall progress, his ability to pass a spontaneous breathing trial. Objective - Vital Signs Vital signs: Vital Signs Temp 98.8 F 01/18/23 04:00 Pulse 70 01/18/23 08:34 Resp 24 01/18/23 08:00 BP 104/66 01/18/23 07:00 Pulse Ox 93 L 01/18/23 08:00 FiO2 50 01/18/23 08:29 Intake & Output 01/17/23 01/18/23 01/18/23 18:59 06:59 18:59 Intake Total 840 690 100 Output Total 2360 1999 Balance -1520 -1310 -175 Intake: IV 240 Lactated Ringers 500 ml @ 40 20 mls/hr IV .Q24H [facility] Rx#:[id number] Piperacillin-Tazobactam 3 100 .375 gm In Sodium Chloride 0.9% 100 ml @ 25 mls/hr IVPB Q8HR [facility] Rx# :[id number] levETIRAcetam IV 750 mg 100 In Sodium Chloride 0.9% 100 ml @ 400 mls/hr IVPB Q12HR [facility] Rx#:[id number] Intake, IV Titration 180 240 40 Amount Lactated Ringers 1,000 ml 180 240 40 @ 20 mls/hr IV .Q24H [facility] Rx#:[id number] Tube Feeding 360 360 60 Other 60 90 Output: Urine 2360 1999 Other: Voiding Method Indwelling Catheter Indwelling Catheter ABP, PAP, CO, CI - Last Documented Arterial Blood Pressure 114/62 - Exam GENERAL EXAM: Intubated, sedated 67-year-old male patient, comfortable in no apparent distress. Orotracheal tube are both in place and the patient is currently off sedation. Arousable and awake and following simple commands HEAD: Normocephalic. EYES: Normal reaction of pupils, equal size. NOSE: Clear with pink turbinates. THROAT: Oral endotracheal and gastric tube secured in place. No erythema or exudates. NECK: No masses, no JVD. CHEST: No chest wall deformity. LUNGS: Equal air entry with few scattered rhonchi. CVS: S1 and S2 normal with no audible murmur, regular rhythm. ABDOMEN: No hepatosplenomegaly, normal bowel sounds, no guarding or rigidity. SPINE: No scoliosis or deformity SKIN: No rashes CENTRAL NERVOUS SYSTEM: Patient has been off sedation, following simple commands, still quite somnolent and sleepy, tone is normal in all 4 extremities. The motor function and the sensory functions cannot be accurately assessed. Pupils are equal and reactive to light. No facial asymmetry. He has an adequate cough and a gag. EXTREMITIES: There is no peripheral edema. No clubbing, no cyanosis. Peripheral pulses are intact. - Labs CBC & Chem 7: 01/18/23 04:30 01/18/23 04:30 Labs: Abnormal Lab Results - Last 24 Hours (Table) 01/18/23 01/18/23 01/18/23 Range/Units 04:30 04:30 05:48 MCV 101.8 H (80.0-100.0) fL MCHC 30.9 L (31.0-37.0) g/dL Plt Count 131 L (150-450) k/uL Neutrophils # 8.7 H (1.3-7.7) k/uL Lymphocytes # 0.7 L (1.0-4.8) k/uL ABG pCO2 55 H (35-45) mmHg ABG pO2 77 L (83-108) mmHg ABG HCO3 34 H (21-25) mmol/L ABG Total CO2 36 H (19-24) mmol/L Potassium 5.2 H (3.5-5.1) mmol/L Carbon Dioxide 34 H (22-30) mmol/L BUN 50 H (9-20) mg/dL Glucose 121 H (74-99) mg/dL Calcium 8.1 L (8.4-10.2) mg/dL Assessment and Plan Plan: In-hospital cardiac arrest requiring CPR and subsequent return of spontaneous circulation within approximately 5 minutes the patient was given epinephrine, bicarb and the patient also had a episode of VT, given amiodarone. It is likely that this started off with a respiratory arrest and following that the patient had a cardiac arrest/asystole. The patient remains stable on oral amiodarone at a dose of 200 mg once a day. Encephalopathy post cardiac arrest and the patient is currently off propofol for the past 48 hours., consider the possibility of a hypoxic encephalopathy post cardiac arrest. The patient has been off sedation and there is a delay in his neurologic recovery. The patient is noted to follow some simple commands today. She is to be slightly more awake on today's evaluation compared to yesterday. Still on mechanical ventilator. CAT scan of the brain that was done on 01/13/2023 showed no acute abnormalities. Acute hypoxemic respiratory failure secondary to above requiring intubation and mechanical ventilatory support on 01/11/2023, chest x-ray showing improvement in aeration of the right lung. There is a large hiatal hernia on the left. He remains intubated on mechanical ventilator. Acute bilateral pneumonia with multifocal by the pulmonary infiltrates and sputum indicating gram-negative bacillus and the patient is currently on IV Zosyn. The sputum sample was positive for Citrobacter Chronic systolic heart failure with an ejection fraction of 45% Left lower lobe airspace disease as noted on the initial CAT scan of the chest, in addition to a large hiatal hernia is off pressors. Large hiatal hernia as noted on the initial CAT scan of the chest Acute COPD exacerbation on top of chronic COPD secondary to above Hypotension requiring pressor support, currently improved and off norepinephrine History of oxygen dependent chronic obstructive pulmonary disease Chronic and ongoing tobacco dependence Chronic atrial fibrillation, anticoagulated with Eliquis, maintain on a combination of flecainide and amiodarone and the patient's current cardiac rhythm is sinus History of hypertension Hyperlipidemia Hypothyroidism History of bipolar disorder History of anxiety/depression History of marijuana use Plan: Keep the patient off sedation Switch this patient to have pressure support of 5 and a PEEP of 5 with an FiO2 of 40% Check and blood gases within the next 30-45 minutes and evaluate the patient for possible extubation Monitor mental status and consider the possibility of anoxic encephalopathy. Continue IV Keppra and EEG showed no seizure activity The patient has gram-negative bacillus in his sputum , and this turned out to be Citrobacter and he is currently on IV Zosyn and this will be continued IV fluids to KVO IV Solu-Medrol to 40 mg every 12 hours Continue Lasix 40 milligrams IV every 12 hours, the patient is a negative fluid balance Continue bronchodilator Continue same cardiac medications Condition is critical and we'll continue to follow make further recommendations based on his progress. This evaluation was done in more than 30 minutes. Time with Patient: Greater than 30
[2023-01-18 12:19] LABS: Glucose,Whole Blood 101 mg/dL (70-110)
[2023-01-18] MEDS: LACTATED RINGERS 1,000 ML IV SCH (12:35)
--- NOTE | 2023-01-18 15:56 | P.PN ---
Progress Note - Text Progress Note Date: 01/18/23 Chief Complaint: Shortness of breath, chest pain This is a 67-year-old patient who follows with Dr. Alvin Villela. Chronic stable medical conditions include hyperlipidemia, hypothyroid, bipolar, atrial fibrillation. Patient is a smoker. COPD, CHF, bipolar, hiatal hernia Patient presented to the ER, brought in by the family because of shortness of breath and chest pain. In the last 3 weeks apparently patient fallen about 3 times. No fever no chills. Some palpitations. Increasing lower extremity edema. Nonproductive cough. Late in the afternoon patient was found to be in PEA. Code team was called. Patient did require epinephrine. intubated. FiO2 100 and PEEP of 5. Patient have a broad complex tachycardia. Application Support Analyst Dr. Steve was informed. Admitted with acute COPD exacerbation, acute CHF exacerbation, acute hypoxic hypercapnic respiratory failure. Intubated. 01/12/2023: ICU. Drips include IV propofol, Levophed. Patient sedated. Telemetry shows sinus rhythm. FiO2 70 to PEEP of 5. Patient seen by biodiesel division manager Dr. Valdes. IV Lasix has been discontinued. IV fluids. 01/13/2023: ICU. Intubated. FiO2 70 PEEP of 10. Drips include propofol and norepinephrine. 2 feeding at 40 mL an hour. Patient went into A. fib with rapid ventricle rate yesterday. Was put on IV Cardizem and IV amiodarone. Went back into sinus rhythm. There was some concern about neuro status change for which neurology was consulted, pending computed tomography scan. No focal weakness. His started on IV Keppra per neurology 01/14/2023: ICU. Intubated. FiO2 70 PEEP of 10. Patient is off levo fed since this morning. On IV propofol. OG tube for feeding at 60 mL an hour. Significant secretions checks x-ray showing infiltrate. His started on IV Zosyn. and daughter the bedside. Discussed. Eliquis. Cordarone. IV Solu-Medrol. IV Keppra. 01/15/2023: ICU. Intubated. FiO2 70 PEEP of 10. 2 feeding. Telemetry sinus rhythm. OG tube feeding. Patient has remained off levo fed. IV Zosyn. IV Keppra. 01/16/2023: ICU. Intubated. FiO2 50 PEEP of 7. Sinus rhythm. Sedation holiday today. Getting 2 feeding. 01/17/2023: ICU. Intubated. FiO2 50 PEEP of 7. OG tube feeding. At 30 mL an hour. Sinus rhythm. Oral amiodarone. Eliquis. IV Lasix 20 mg every 12. IV Keppra. IV Zosyn. Remains off levo fed. Off propofol. 01/18/2023: ICU. Patient extubated this morning. Currently on 12 L. Lethargic but following commands. Sinus rhythm. at the bedside. Congested cough. IV Keppra. IV Zosyn. IV Lasix Active Medications Acetaminophen (Acetaminophen Tab 325 Mg Tab) 650 mg PO Q4HR PRN PRN Reason: Mild Pain or Fever > 100.5 Albuterol Sulfate (Albuterol Nebulized 2.5 Mg/3 Ml) 2.5 mg INHALATION RT-Q4H [facility] Last Admin: 01/18/23 12:06 Dose: Not Given Amiodarone HCl (Amiodarone 200 Mg Tab) 200 mg PO BID [facility] Last Admin: 01/18/23 09:06 Dose: 200 mg Apixaban (Apixaban 5 Mg Tab) 5 mg PO BID [facility]; Protocol Last Admin: 01/18/23 09:06 Dose: 5 mg Aspirin (Aspirin 81 Mg) 81 mg PO DAILY [facility] Last Admin: 01/18/23 09:05 Dose: 81 mg Budesonide (Budesonide 1 Mg/2 Ml Nebu) 1 mg INHALATION RT-BID [facility] Last Admin: 01/18/23 08:32 Dose: 1 mg Chlorhexidine Gluconate (Chlorhexidine Gluconate 15 Ml Cup) 15 ml MUCOUS MEM BID [facility] Last Admin: 01/18/23 09:05 Dose: 15 ml Docusate Sodium (Docusate Oral Soln 100 Mg/10 Ml Cup) 100 mg PO BID [facility] Last Admin: 01/18/23 09:07 Dose: 100 mg Formoterol Fumarate (Formoterol Fumarate 20 Mcg/2 Ml Nebu) 20 mcg INHALATION RT-BID [facility] Last Admin: 01/18/23 08:32 Dose: 20 mcg Furosemide (Furosemide 10 Mg/Ml 2 Ml Vial) 20 mg IV Q12HR [facility] Last Admin: 01/18/23 09:05 Dose: 20 mg Gabapentin (Gabapentin 100 Mg Cap) 200 mg PO TID [facility] Last Admin: 01/18/23 09:04 Dose: 200 mg Hydromorphone HCl (Hydromorphone 1 Mg/Ml 1 Ml Syringe) 1 mg IVP Q4HR PRN PRN Reason: MODERATE TO SEVERE PAIN (4-10) Last Admin: 01/17/23 22:38 Dose: 1 mg Levetiracetam 750 mg/ Sodium (Chloride) 107.5 mls @ 400 mls/hr IVPB Q12HR [facility] Last Admin: 01/18/23 09:02 Dose: 400 mls/hr Piperacillin Sod/Tazobactam (Sod 3.375 gm/ Sodium Chloride) 100 mls @ 25 mls/hr IVPB Q8HR [facility]; Protocol Last Admin: 01/18/23 09:02 Dose: 25 mls/hr Insulin Aspart (Insulin Aspart (Novolog) 100 Unit/Ml Vial) 0 unit SQ Q6HR [facility]; Protocol Last Admin: 01/18/23 12:35 Dose: Not Given Ipratropium [place] (Ipratropium 0.5 Mg/2.5 Ml Nebu) 0.5 mg INHALATION RT-Q4H [facility] Last Admin: 01/18/23 12:06 Dose: Not Given Latanoprost (Latanoprost 0.005% Ophth Drops 2.5 Ml Btl) 1 drops LEFT EYE HS [facility] Last Admin: 01/17/23 21:03 Dose: 1 drops Levothyroxine Sodium (Levothyroxine 125 Mcg Tab) 125 mcg PO DAILY@0630 [facility] Last Admin: 01/18/23 06:03 Dose: 125 mcg Lisinopril (Lisinopril 2.5 Mg Tab) 2.5 mg PO BID [facility] Last Admin: 01/18/23 09:06 Dose: 2.5 mg Methylprednisolone Sodium Succinate (Methylprednisolone Sod Succi 40 Mg/Ml 1 Ml Vial) 40 mg IV Q12HR [facility] Last Admin: 01/18/23 09:06 Dose: 40 mg Metoclopramide HCl (Metoclopramide Oral Soln 10 Mg/10 Ml Cup) 10 mg PO TID [facility] Last Admin: 01/18/23 09:07 Dose: 10 mg Metoprolol Tartrate (Metoprolol Tartrate 25 Mg Tab) 75 mg PO BID [facility] Last Admin: 01/18/23 09:07 Dose: 75 mg Miscellaneous Information (Potassium Replacement Protocol 1 Each Misc) 1 each MISCELLANE DAILY PRN; Protocol PRN Reason: Per Protocol Naloxone HCl (Naloxone 0.4 Mg/Ml 1 Ml Vial) 0.2 mg IVP Q2M PRN PRN Reason: Opioid Reversal Nicotine (Nicotine 21mg/24hr Patch) 1 patch TRANSDERM DAILY [facility] Last Admin: 01/18/23 09:07 Dose: 1 patch Olanzapine (Olanzapine 10 Mg Tab) 20 mg PO HS [facility] Last Admin: 01/17/23 21:04 Dose: 20 mg Pantoprazole Sodium (Pantoprazole 40 Mg Tablet) 40 mg PO DAILY [facility] Last Admin: 01/18/23 09:07 Dose: Not Given Past medical history to include: COPD, hyperlipidemia, hypothyroid, bipolar, atrial fibrillation, bipolar, CHF, he had hernia Social history: Lives with sister Marifer, smokes a pack a day for many years, no alcohol Physical examination: VITAL SIGNS: 97.6, 71, 19, 91/72, 98% on 12 L GENERAL:laying in bed, lethargic, congested cough EYES: Pupils equal. Conjunctiva normal. HEENT: External appearance of nose and ears normal, oral cavity grossly normal. NECK: JVD is able to assess; masses not palpable. HEART: First and second heart sounds are normal; edema present LUNGS: Respiratory rate increased; decreased breath sounds ABDOMEN: Soft, nontender, liver spleen not palpable, no masses palpable. PSYCH: Unable to assess MUSCULOSKELETAL:No Clubbing/cyanosis;muscles-grossly intact. Evidence of OA INVESTIGATIONS, reviewed in the clinical context: 01/18/2023: White count 10.2 hemoglobin 15.5 platelets 131 potassium 5.2 BUN 50 creatinine 1.04 01/17/2023: White count 9.5 hemoglobin 14.9 platelets 142 potassium 4.9 creatinine 1.02 Sputum culture: Citrobacter koseri 01/16/2023: White count 9.9 hemoglobin 15.1 platelets 137 potassium 4.8 creatinine 1.13 01/15/2023: White count 11.4 hemoglobin 14.9 platelets 139 potassium 4.5 creatinine 0.95 EEG: Encephalopathy. No seizure activity. 01/14/2023: White count 15.6 hemoglobin 15.1 platelets 160 potassium 4.3 BUN 30 creatinine 1.07 01/13/2023: White count 7.19 globin 16.2 potassium 3.9 BUN 23 creatinine 1.03 troponin I 0.016 proBNP 1150 2-D echocardiogram: EF 45-50%. Right ventricle dilatation, right ventricular hypertrophy 01/12/2023: White count 13.9 hemoglobin 16.2 platelets 123 potassium 3.7 creatinine 1.19 cortisol 22 TSH 0.548 White count 10.6 hemoglobin 16.4 platelets 153 potassium 3.1 BUN 24 creatinine 1.4 to AST 79 ALT 65 Procalcitonin 0.08 ABG: PH 7.18 pCO2 102 pO2 153 EKG tracing personally reviewed by me-normal sinus rhythm. Intraventricular block. Poor R-wave progression. Chest x-ray film personally reviewed by me-large hiatal hernia. Cardiomegaly. Venous prominence. Assessment and plan: -Acute hypoxic and hypercapnic respiratory failure secondary to COPD exacerbation and CHF exacerbation: Slow to respond Was on ventilator assist. Extubated January 18. Currently 12 L nasal cannula -Paroxysmal atrial fibrillation flutter, had an episode of rapid rate - Back in sinus rhythm Telemetry. Eliquis 5 mg twice a day. Lopressor 75 mg twice a day flecainide- discontinued. Cordarone. -Possible seizure per neurology. On Keppra. EEG negative for seizure activity -Possible aspiration pneumonia, culture positive for Citrobacter koseri IV Zosyn -Acute COPD exacerbation in a current smoker Albuterol 4 times a day.. IV Solu-Medrol. Nebulized Perforomist and Pulmicort, -Acute on Chronic congestive heart failure from systolic dysfunction EF 45-50%- IV Lasix 20 mg every 12 -Hypothyroid Levothyroxine 125 g a day -Essential hypertension Zestril 2.5 twice a day. Lopressor 75 mg twice a day -Cardiogenic shock: Better Taken off off levo fed -OG tube feeding -Chronic nicotine dependence, cigarette smoker Nicotine patch -Bipolar disorder Zyprexa 20 mg daily at bedtime. -Full code Bronchodilators. Steroids. IV Keppra. IV Zosyn eliquis. Amiodarone. Extubat ed. Continue supportive care.
[2023-01-18 18:01] LABS: Glucose,Whole Blood 91 mg/dL (70-110)
[2023-01-18] MEDS: OLANZapine 10 MG TAB PO SCH (20:26)
[2023-01-18] MEDS: LATANOPROST 0.005% OPHTH DROPS 2.5 ML BTL LEFT EYE SCH (21:32)
--- NOTE | 2023-01-18 22:43 | P.PN ---
Subjective Progress Note Date: 01/18/23 01/18/2023: Patient was seen for a follow-up. Patient has been extubated. Patient is groggy. Offers no complaints. Patient denies headache. 01/17/2023: Patient was seen for a follow-up. Patient's 2 sisters including Marifer was present. Patient has been off sedation since 11 AM yesterday. Patient started waking up. Neurologically he is making much progress. He is still on 70% FiO2. The PEEP has been decreased. 01/16/2023: Patient was seen for a follow-up. Patient is off sedation since 11 AM today. Now 2:35 PM. Patient is intubated, minimal response as per examination below. No obvious seizure activity. His PEEP was decreased and O2 requirement. 01/15/2023: Patient initially seen by Dr. Chuy Steve. Please refer to his note for details. Patient is a 67-year-old male who came for shortness of breath. Patient had a cardiac arrest for 5 minutes and ?seizure witnessed by the nurse. Patient currently on Keppra 750 mg twice a day. EEG was negative for any seizures but patient has severe encephalopathy. CT head was reported as negative. Patient at present is on propofol 40 mcg/kg/m. Some other workup during the hospital visit consisted of Initial ABGs of pH is 7.18 predominantly hypercapnic. PH has normalized but the pCO2 was 67 bicarbonate is 37 Initial creatinine is 1.56 but it's trending down sodium on presentation 132 but it's improved magnesium is normal AST most recent 79 ALT 65 TSH is 0.548 2D echo was reported as poor quality study left ventricle size is normal there is mild global decrease in contractility noted. Endocardial margins are poorly seen. Occult contrast was not used. There is mild mitral annular calcification and aortic sclerosis. Sinus rhythm with first-degree AV block with frequent suburban ventricular premature complex. Possible left atrial enlargement. Possible right ventricular hypertrophy. Ammonia level is 30 (normal is <30). EEG: Is abnormal. The background slowing is suggestive of severe encephalopathy. Otherwise no focal slowing, epitleptiform discharge or seizure on the EEG. CT head is reported as negative. No change. Objective - Vital Signs Vital signs: Vital Signs Temp 98.8 F 01/18/23 04:00 Pulse 72 01/18/23 08:55 Resp 24 01/18/23 08:00 BP 104/66 01/18/23 07:00 Pulse Ox 93 L 01/18/23 08:00 FiO2 50 01/18/23 08:29 Intake & Output 01/17/23 01/18/23 01/18/23 18:59 06:59 18:59 Intake Total 840 690 285 Output Total 2360 2000 375 Balance -1520 -1310 -90 Weight 119.3 kg Intake: IV 240 125 Lactated Ringers 500 ml @ 40 20 mls/hr IV .Q24H [facility] Rx#:[id number] Piperacillin-Tazobactam 3 100 25 .375 gm In Sodium Chloride 0.9% 100 ml @ 25 mls/hr IVPB Q8HR [facility] Rx# :[id number] levETIRAcetam IV 750 mg 100 100 In Sodium Chloride 0.9% 100 ml @ 400 mls/hr IVPB Q12HR [facility] Rx#:[id number] Intake, IV Titration 180 240 40 Amount Lactated Ringers 1,000 ml 180 240 40 @ 20 mls/hr IV .Q24H [facility] Rx#:[id number] Tube Feeding 360 360 90 Other 60 90 30 Output: Urine 2360 2000 375 Other: Voiding Method Indwelling Catheter Indwelling Catheter ABP, PAP, CO, CI - Last Documented Arterial Blood Pressure 114/62 - Exam On examination patient is extubated. He is groggy, lethargic, encephalopathic. But he is easily arousable, and does open his eyes slightly and makes eye contact. He is nodding appropriately. His pupils are equal, 4 mm reacting to 3 mm bilaterally. Extraocular muscles are intact. Patient has at least 4+ manager bakery strength bilaterally. He is wiggling his toes on commands, consistently. Slow mentation. Patient able to lift his forearms with good biceps and triceps strength. Patient has moderate peripheral edema. Reflexes are absent. Plantars are flat. Tone is normal in the arms and legs. Cerebellar functions cannot be assessed. - Labs CBC & Chem 7: 01/18/23 04:30 01/18/23 04:30 Labs: Abnormal Lab Results - Last 24 Hours (Table) 01/18/23 01/18/23 01/18/23 Range/Units 04:30 04:30 05:48 MCV 101.8 H (80.0-100.0) fL MCHC 30.9 L (31.0-37.0) g/dL Plt Count 131 L (150-450) k/uL Neutrophils # 8.7 H (1.3-7.7) k/uL Lymphocytes # 0.7 L (1.0-4.8) k/uL ABG pCO2 55 H (35-45) mmHg ABG pO2 77 L (83-108) mmHg ABG HCO3 34 H (21-25) mmol/L ABG Total CO2 36 H (19-24) mmol/L ABG O2 Saturation (94-97) % Potassium 5.2 H (3.5-5.1) mmol/L Carbon Dioxide 34 H (22-30) mmol/L BUN 50 H (9-20) mg/dL Glucose 121 H (74-99) mg/dL Calcium 8.1 L (8.4-10.2) mg/dL 01/18/23 Range/Units 09:01 MCV (80.0-100.0) fL MCHC (31.0-37.0) g/dL Plt Count (150-450) k/uL Neutrophils # (1.3-7.7) k/uL Lymphocytes # (1.0-4.8) k/uL ABG pCO2 54 H (35-45) mmHg ABG pO2 68 L (83-108) mmHg ABG HCO3 34 H (21-25) mmol/L ABG Total CO2 35 H (19-24) mmol/L ABG O2 Saturation 92.5 L (94-97) % Potassium (3.5-5.1) mmol/L Carbon Dioxide (22-30) mmol/L BUN (9-20) mg/dL Glucose (74-99) mg/dL Calcium (8.4-10.2) mg/dL Assessment and Plan Assessment: This is a 67-year-old gentleman who presented because of the severe shortness of breath and dyspnea. In the emergency department he had cardiopulmonary arrest requiring CPR for 5 minutes. Status post Cardiopulmonary arrest Status post extubation. Altered mental status, likely due to hypoxic and metabolic encephalopathy. Patient's mentation much improving. Patient is following commands. EEG is negative for seizure activity. CT head is negative. Probable Seizure due to his cardiopulmonary arrest (reported had shaking of all extremities, unequal pupils and tongue bite)--resolved with 2mg Ativan Cardiogenic shock on Norepi Severe shortness of breath with dyspnea. On a ventilator after the cardiopulmonary arrest Acute kidney injury--resolved History of Atrial fibrillation on eliquis History of possible stroke behind the left eye Of hypertension Hyperlipidemia Hypothyroidism Nicotine dependence Plan: Patient is extubated, following directions, and the muscle strength is improving. Mentation also improving. Continue Keppra 750mg every 12 hours for seizure. We will consider weaning down Keppra once mentation improves. Every hour neuro checks Please avoid any hypotensive episode We'll defer the rest of the medical management to primary team We will follow clinically.
[2023-01-18 23:20] LABS: Glucose,Whole Blood 98 mg/dL (70-110)
[2023-01-19] MEDS: IPRATROPIUM 0.5 MG/2.5 ML NEBU INHALATION SCH ×7 (00:35→19:55)
[2023-01-19] MEDS: ALBUTEROL NEBULIZED 2.5 MG/3 ML INHALATION SCH ×7 (00:35→19:55)
[2023-01-19] MEDS: INSULIN ASPART (NovoLOG) 100 UNIT/ML VIAL SQ SCH ×3 (01:05→12:31)
[2023-01-19] MEDS: PIPERACILLIN-TAZOBACTAM 3.375 GM in SODIUM CHLORIDE 0.9% 100 ML IVPB SCH ×4 (01:07→23:54)
[2023-01-19 06:02] LABS: African American GFR (CKD) >90 (>60 ml/min/1.73 sqM); Anion Gap 2 mmol/L; Blood Urea Nitrogen 44 mg/dL (9-20); Calcium 8.8 mg/dL (8.4-10.2); Carbon Dioxide 30 mmol/L (22-30); Chloride 108 mmol/L (98-107); Glucose 102 mg/dL (74-99); Non-African American GFR(CKD) 88 (>60 ml/min/1.73 sqM); Potassium 4.9 mmol/L (3.5-5.1); Sodium 140 mmol/L (137-145)
[2023-01-19] MEDS: LEVOTHYROXINE 125 MCG TAB PO SCH (06:25)
--- NOTE | 2023-01-19 07:02 | P.PN ---
Subjective Progress Note Date: 01/19/23 PROGRESS NOTE The patient is a 67-year-old male with known history of atrial fibrillation, anticoagulated, chronic obstructive lung disease, marijuana use, bipolar disorder, hypertension and hyperlipidemia who presented with worsening dyspnea. He had a cardiac arrest with nonsustained VT, he was intubated and transferred to the ICU. His echocardiogram was reported showing an ejection fraction of 45-50%. The patient remains intubated and sedated, off norepinephrine. Hemodynamically he is stable. His urinary output is stable. There is no evidence of ventricular tachycardia. January 16: The patient remains intubated and sedated. Hemodynamically stable. He has no evidence of ventricular ectopic activity. He has evidence of respiratory failure with bilateral pneumonia. His urinary output is good. He has a prior history of COPD. He has mild cardiomyopathy on the echocardiogram. There is a history of paroxysmal atrial fibrillation, on amiodarone. His flecainide has been stopped. He is in sinus mechanism at this time. January 17: The patient remains intubated and sedated, hemodynamically stable. There is no evidence of ventricle tachycardia. His urinary output has been stable. He has no malignant arrhythmia. He is tolerating his present regimen of PANTERA inhibitor and beta jazmin. He continues to be on amiodarone. He is receiving nutrition per NG tube. He continues to be sedated on propofol. His EKG showed severe encephalopathy January 18: The patient remains intubated, responding to verbal stimulation, following verbal command. On no vasopressors. He has good urinary output continues to be in sinus mechanism. He has no evidence of malignant arrhythmia. His blood pres sure is stable. His oxygenation is improving. January 19: The patient is extubated, feels tired, awake and following commands. He is in sinus mechanism and his blood pressure is stable. There is no evidence of ventricular ectopic activity. He is on no vasopressors. His urinary output is good. He was on BiPAP during the night. Medications: Amiodarone 200 mg twice a day, aspirin once a day, metoprolol 75 mg twice a day, levothyroxine, methylprednisolone, Eliquis 5 mg twice a day, Lasix 20 mg IV every 12 hours, lisinopril 2.5 mg twice a day PHYSICAL EXAMINATION: Blood pressure 137/90 heart rate 60, awake and alert LUNGS: Clear to auscultation anteriorly HEART: Regular rate and rhythm, S1, S2. No S3. systolic ejection murmur ABDOMEN: Soft, positive bowel sounds, no organomegaly, nontender EXTREMETIES: Trace edema, chronic skin changes LAB: Potassium 4.9, BUN 44, creatinine 0.91 IMPRESSION: 1. Cardiac arrest with respiratory failure, no evidence of acute coronary syndrome, cardiac arrest most likely secondary to the respiratory failure and the pneumonia, resolved, patient extubated 2. History of atrial fibrillation, anticoagulated, maintaining sinus mechanism 3. History of COPD and chronic tobacco use 4. History of hypertension PLAN: 1. Continue present dose of beta jazmin and PANTERA inhibitor 2. Follow renal functions 3. Physical therapy 4. Depending on his progress further recommendations will be made Objective - Vital Signs Vital signs: Vital Signs Temp 98.6 F 01/19/23 04:00 Pulse 65 01/19/23 06:30 Resp 17 01/19/23 06:30 BP 137/98 01/19/23 06:30 Pulse Ox 93 L 01/19/23 06:30 FiO2 50 01/19/23 03:31 Intake & Output 01/18/23 01/18/23 01/19/23 06:59 18:59 06:59 Intake Total 690 500 645 Output Total 1999 1885 1495 Balance -7752 -4552 -283 Weight 119.3 kg Intake: IV 320 645 .9NS 120 220 Piperacillin-Tazobactam 3 100 25 .375 gm In Sodium Chloride 0.9% 100 ml @ 25 mls/hr IVPB Q8HR [facility] Rx# :[id number] levETIRAcetam IV 750 mg 100 400 In Sodium Chloride 0.9% 100 ml @ 400 mls/hr IVPB Q12HR [facility] Rx#:[id number] Intake, IV Titration 240 60 Amount Lactated Ringers 1,000 ml 240 60 @ 20 mls/hr IV .Q24H [facility] Rx#:[id number] Tube Feeding 360 90 Other 90 30 Output: Urine 1999 2575 1495 Other: Voiding Method Indwelling Catheter Indwelling Catheter Indwelling Catheter ABP, PAP, CO, CI - Last Documented Arterial Blood Pressure 126/70 - Labs CBC & Chem 7: 01/18/23 04:30 01/19/23 05:00 Labs: Abnormal Lab Results - Last 24 Hours (Table) 01/18/23 01/19/23 Range/Units 09:01 05:00 ABG pCO2 54 H (35-45) mmHg ABG pO2 68 L (83-108) mmHg ABG HCO3 34 H (21-25) mmol/L ABG Total CO2 35 H (19-24) mmol/L ABG O2 Saturation 92.5 L (94-97) % Chloride 108 H (98-107) mmol/L BUN 44 H (9-20) mg/dL Glucose 102 H (74-99) mg/dL
--- NOTE | 2023-01-19 07:14 | XR ---
EXAMINATION TYPE: XR chest 1V portable DATE OF EXAM: 01/19/2023 COMPARISON: 01/18/2023 HISTORY: Shortness of breath TECHNIQUE: Single frontal view of the chest is obtained. FINDINGS: NG tube courses down and then deviates towards the left along the retrocardiac region with tip at the left base. There has been some interval improvement in aeration at the right base. Ongoin g prominent retrocardiac and left basilar opacity no this density also shows improvement at the mid l efrem level. Left CVC tip at the mid SVC level. ET tube has been removed. IMPRESSION: Elevated left hemidiaphragm with bilateral consolidation and small effusion correlate for CHF otherwi se consider pneumonia. Findings stable on the left and slightly progressed on the right.
[2023-01-19] MEDS: BUDESONIDE 1 MG/2 ML NEBU INHALATION SCH ×2 (07:51→19:55)
[2023-01-19] MEDS: FORMOTEROL FUMARATE 20 MCG/2 ML NEBU INHALATION SCH ×2 (07:52→19:55)
[2023-01-19] MEDS: NICOTINE 21MG/24HR PATCH TRANSDERM SCH (08:24)
[2023-01-19] MEDS: GABAPENTIN 100 MG CAP PO SCH ×3 (08:30→22:53)
[2023-01-19] MEDS: APIXABAN 5 MG TAB PO SCH ×2 (08:30→22:31)
[2023-01-19] MEDS: METOPROLOL TARTRATE 25 MG TAB PO SCH ×2 (08:30→23:50)
[2023-01-19] MEDS: PANTOPRAZOLE 40 MG TABLET PO SCH (08:30)
[2023-01-19] MEDS: AMIODARONE 200 MG TAB PO SCH ×2 (08:30→22:31)
[2023-01-19] MEDS: FUROSEMIDE 10 MG/ML 2 ML VIAL IV SCH (08:31)
[2023-01-19] MEDS: ASPIRIN 81 MG PO SCH (08:31)
[2023-01-19] MEDS: methylPREDNISolone SOD SUCCI 40 MG/ML 1 ML VIAL IV SCH (08:31)
[2023-01-19] MEDS: METOCLOPRAMIDE ORAL SOLN 10 MG/10 ML CUP PO SCH ×2 (08:42→15:28)
[2023-01-19] MEDS: DOCUSATE ORAL SOLN 100 MG/10 ML CUP PO SCH (08:43)
[2023-01-19] MEDS: CHLORHEXIDINE GLUCONATE 15 ML CUP MUCOUS MEM SCH (08:43)
[2023-01-19] MEDS: levETIRAcetam IV 750 MG in SODIUM CHLORIDE 0.9% 100 ML IVPB SCH ×2 (08:43→20:13)
--- NOTE | 2023-01-19 09:15 | P.PN ---
Subjective Progress Note Date: 01/19/23 67-year-old male patient was being seen on follow-up on 01/15/2023. The patient is currently intubated on a mechanical ventilator. The patient is known to have COPD and chronic hypoxic respiratory failure in addition to multiple comorbidities including atrial fibrillation, hypertension, hypothyroidism, bipolar disorder and is a chronic smoker. He came into the emergency department because of worsening shortness of breath. In the ED, the patient a cardiac arrest for approximately 5 minutes and he was resuscitated after being given epinephrine 3 and bicarb. He did encounter some nonsustained VT and he was given amiodarone. Following that, he was transferred to the intensive care unit. He did encounter some seizure activity following his cardiac arrest. This morning, the patient remains on propofol which is running at 40 mcg/kg/m. His calm and comfortable and symptoms of mechanical ventilator. He remains on assist-control mode of mechanical ventilation at the rate of 24, tidal volume of 450, FiO2 of 70% and a PEEP of 10. Chest x-ray showing bilateral lower lobe effusion/consolidation. The ET tube needs to be adjusted and pushed him by another 1 cm.. No significant orotracheal secretions at this point in time. The patient does have multifocal airspace disease mainly in the lower lobes. The patient has a blood gas that shows a pH of 7.4 with a pCO2 of 61 and pO2 of 80. His peak airway pressure is 26 on the mechanical ventilator. He is on IV fluids and currently is on lactated Ringer at the rate of 75 mL an hour. His WBC count is at 11.4 with a hemoglobin of 14.9 and a platelet count of 139. Sodium is at 139 with a potassium level of 4.5, bicarb is at 37 BUN is at 39 with a creatinine of 0.9. His proBNP level at time of admission was 1590 and it gradually dropped. His sputum is positive for gram-negative bacillus and the patient is currently on IV Zosyn. His cardiac rhythm is currently sinus. He is on amiodarone 200 mg by mouth twice a day, and flecainide 50 mg by mouth twice a day. He has been also on long-term anticoagulation with Eliquis. He remains on bronchodilators. He remains on IV Solu-Medrol. Antibiotic coverage with IV Zosyn. He was started on IV Keppra regarding his seizure activity. Neurology is on the case. EEG was done on 01/13/2023 and it showed severe encephalopathy. No seizure activity was noted otherwise. His echocardiogram that was done on 01/12/2023 showed poor LV function which was in the order of ejection fraction of 45%. There was evidence of RV dilatation. There was evidence of RV hypertrophy. There was normal RV function. There is also grade 1 diastolic dysfunction. The patient is also on vital high-protein which is running at 60 mL an hour and is having and encountering high residuals. CAT scan of the brain was essentially negative. On today's evaluation of 01/16/2023, the patient is being seen in follow-up. The patient remains intubated on a mechanical ventilator. There is a case of pneumonia with respiratory failure and subsequent cardiac arrest. This morning, the patient is still on propofol which is running at 25 mcg/kg/m. Noted the patient was given a sedation holiday yesterday. He did not fully recover. He became restless and agitated and asynchronous a mechanical ventilator. He was not following any commands. The holiday was aborted and the patient was placed back on propofol. The same will be done today. He remains on a mechanical ventilator. Assist-control mode at the rate of 24, tidal volume of 450, FiO2 of 60% with a PEEP of 10. PH is at 7.4 with a pCO2 of 64 and pO2 of 76. Chest x- ray showing a large hiatal hernia. The patient has bibasilar atelectasis and infiltrates, essentially unchanged compared to yesterday. The sputum is positive for Citrobacter and the patient is currently covered with IV Zosyn which is appropriate for the time being. No significant orotracheal secretions. The patient is also on Ventolin about treatments [id number], is also on a combination of Pulmicort and Perforomist nebulized treatments. He is receiving IV Solu-Medrol at a dose of 40 mg every 12 hours. I wean the Solu-Medrol yesterday the patient is less bronchospastic and wheezy as is recovering from an acute COPD exacerbation. Hemodynamically, the patient is in normal sinus rhythm. The patient is hemodynamically stable on no pressors. The patient r emains on Lasix 20 mg IV every 12 hours. The patient has been in negative fluid balance of 1 L over the past 24 hours. As such, diuretics will be continued. BUN is at 47 with a creatinine of 1.1 and sodium level is at 141. The WBC count is at 9.9 with a hemoglobin of 15 and a platelet count of 137. We are having ongoing issues with enteral feeding. The patient is a large hiatal hernia. He was having high residuals probably related to his hiatal hernia. Currently, he is on enteral feeding with vital high-protein at the rate of 30 mL an hour. He was also given Reglan. The OG tube may need to be repositioned. He is having issues with hypertension. He is currently on a combination of metoprolol 75 mg by mouth twice a day, diuretics also will help him with his blood pressure control, in combination with lisinopril 2.5 mg by mouth daily.. He is also on amiodarone as the patient did encounter nonsustained V. tach. His echo cardiac exam showed an ejection fraction of 45%, grade 1 diastolic heart failure, evidence of RV hypertrophy and dilation. 01/17/2023, patient is being seen in follow-up in the intensive care unit. Noted the patient is currently intubated on a mechanical ventilator. There was a concern of encephalopathy post cardiac arrest. His cardiac arrest was rather brief. The patient was taken off sedation yesterday at around 11 AM and the patient is still very much somnolent and sleepy. Nevertheless, upon repeated stimulation, he is able to follow some simple commands. He would open up his eyes spontaneously and he would squeeze using his hands. Nevertheless, his response is not consistent and is quite somnolent and lethargic and sleepy still. He remains off sedation. Is able to tolerate the mechanical ventilator reveal well and the patient this morning is on assist control mode at the rate of 24, tidal volume of 450, FiO2 of 50% with a PEEP of 8. His pulse ox was 90- 93%. Blood gas showed a pH of 7.43 with a pCO2 of 57 and pCO2 of 69. His chest x-ray reveals a large hiatal hernia and we are seeing the NG tube coiling up into his stomach and is up in the chest. There is evidence of pleural effusion bibasilar pulmonary infiltrates/atelectasis. I would say, the chest x-ray findings somewhat suboptimal due to the large hiatal hernia and its present in his left chest. Meanwhile, his sputum sample was positive for Citrobacter. The patient remains on IV antibiotics and the patient is currently on IV Zosyn. Minimal respiratory secretions for now. Gas was noted. PEEP will be dropped onto 7. At the same time, the patient remains on bronchodilators. I was able to wean down his Solu-Medrol as the patient had a component of acute COPD exacerbation. He is obviously much less bronchospastic and wheezy and the patient remains on Solu-Medrol 40 mg every 12 hours in addition to his routine bronchodilators. Hemodynamically, he is stable. He was an obvious fluid overload and the patient is currently being diuresed. Overall fluid balance over the past 24 hours is -3.2 L as the patient is receiving Lasix 40 mg IV every 12 hours. His net fluid balance is negative. BUN is at 49 with a creatinine of 1.02. Sodiums of 143 with a potassium level of 4.9 and a bicarb level of 39. The white cell count is at 9.5 with a hemoglobin of 14.9 and a platelet count of 142. He is continuing his enteral feeding. I think the OG tube may need to be pulled out slightly and reposition. He is currently on vital high-protein at 30 mL an hour. His current cardiac rhythm is sinus. He remains on amiodarone as the patient encountered nonsustained V. tach and the time of his cardiac arrest. He is currently on oral amiodarone 200 mg by mouth twice a day. He remains on long-term anticoagulation with Eliquis 5 mg by mouth twice a day. His echo cardiac exam showed grade 1 diastolic heart failure with an ejection fraction of 45%. Rhythm is sinus. 01/18/2023, the patient is being seen for a follow-up. The patient has been off sedation for the past 48 hours. He is lethargic. He is arousable and is following simple commands. On today's evaluation, he was able to communicate and follow simple commands. He remains on a mechanical ventilator on assist control mode and currently is on a rate of 24 with a tidal volume of 450 with a PEEP of 7 and FiO2 of 60%. The blood gas shows a pH of 7.4 with episodes of 55 and a pO2 of 77. The chest x-ray shows improvement in aeration of the right lung. There is a large hiatal hernia the left. He remains on IV Lasix. The fluid balance over the past 24 hours is -2.8 L. Meanwhile, the patient is doing well. Hemodynamically stable, and the patient is a BUN of 50 with a creatinine of 1.4. The rest of the blood work is essentially within normal. The patient is a WBC count of 10.2 with a hemoglobin of 15.7 and a platelet count of 131. The patient remains on IV Zosyn. The patient continues to receive enteral feeding for nutritional support and the patient remains on vital high-protein. His cardiac rhythm remained sinus and the patient remains on amiodarone 200 mg twice a day. He remains on anticoagulation with Eliquis 5 mg by mouth twice a day. I checked a baseline weaning parameters of the bedside and following this was patient to a pressure support of 5 and a PEEP of 5 with an FiO2 of 50% and and possible extubation today. This will depend on his overall progress, his ability to pass a spontaneous breathing trial. 01/19/2023, the patient is extubated. The patient was extubated to high flow oxygen. Overnight, he required BiPAP at a pressure of 12/6 with an FiO2 50%. Currently is on 10 L of oxygen by nasal cannula with a pulse ox of 97%. Is awake. He is alert. He is lethargic. He is following commands. No focal neurological deficits at this point in time. Noted the patient is post cardiac arrest and he may have a component of anoxic encephalopathy. His cough and and swallowing is adequate. His taken some applesauce. Otherwise, he does not seem to be in significant respiratory distress. The repeat chest x-ray showed a large hiatal hernia on the left. Findings of essentially unchanged. Meanwhile, the patient remains on IV antibiotics with IV Zosyn as the patient had Citrobacter in the sputum and gram-negative pneumonia was suspected and treated accordingly. The patient is in sinus rhythm. Is on no pressors. He remains on IV Lasix. Is making excellent urine output. His fluid balance is -2.9 L over the past 24 hours. Meanwhile, his electrolytes show a BUN of 44 with a creatinine of 0.9. Sodiums of 140 and a potassium level is at 4.9. No other significant events. No fever. No hemodynamic instability. His echocardiogram at shown a preserved LV function. No cardiac arrhythmias and the patient remains on amiodarone for an episode of nonsustained V. tach that he encountered at the time of his admission. He remains on anticoagulation with Eliquis 5 mg twice a day. Objective - Vital Signs Vital signs: Vital Signs Temp 97.8 F 01/19/23 07:30 Pulse 71 01/19/23 08:10 Resp 18 01/19/23 08:10 BP 123/93 01/19/23 08:00 Pulse Ox 99 01/19/23 08:00 FiO2 50 01/19/23 07:52 Intake & Output 01/18/23 01/19/23 01/19/23 18:59 06:59 18:59 Intake Total 500 645 20 Output Total 2575 1495 50 Balance -2075 -850 -30 Weight 119.3 kg Intake: IV 320 645 20 .9NS 120 220 20 Piperacillin-Tazobactam 3 100 25 .375 gm In Sodium Chloride 0.9% 100 ml @ 25 mls/hr IVPB Q8HR [facility] Rx# :[id number] levETIRAcetam IV 750 mg 100 400 In Sodium Chloride 0.9% 100 ml @ 400 mls/hr IVPB Q12HR [facility] Rx#:[id number] Intake, IV Titration 60 Amount Lactated Ringers 1,000 ml 60 @ 20 mls/hr IV .Q24H [facility] Rx#:[id number] Tube Feeding 90 Other 30 Output: Urine 2575 1495 50 Other: Voiding Method Indwelling Catheter Indwelling Catheter Indwelling Catheter ABP, PAP, CO, CI - Last Documented Arterial Blood Pressure 130/75 - Exam GENERAL EXAM: Extubated on 10 L of oxygen by nasal cannula, no signs of any respiratory distress, calm and comfortable and is communicating. HEAD: Normocephalic. EYES: Normal reaction of pupils, equal size. NOSE: Clear with pink turbinates. THROAT: Oral endotracheal and gastric tube secured in place. No erythema or exudates. NECK: No masses, no JVD. CHEST: No chest wall deformity. LUNGS: Equal air entry with few scattered rhonchi. CVS: S1 and S2 normal with no audible murmur, regular rhythm. ABDOMEN: No hepatosplenomegaly, normal bowel sounds, no guarding or rigidity. SPINE: No scoliosis or deformity SKIN: No rashes CENTRAL NERVOUS SYSTEM: Patient slow in answering questions. He is communicating. He is appropriate. No focal neurological deficits. EXTREMITIES: There is no peripheral edema. No clubbing, no cyanosis. Peripheral pulses are intact. - Labs CBC & Chem 7: 01/18/23 04:30 01/19/23 05:00 Labs: Abnormal Lab Results - Last 24 Hours (Table) 01/18/23 01/19/23 Range/Units 09:01 05:00 ABG pCO2 54 H (35-45) mmHg ABG pO2 68 L (83-108) mmHg ABG HCO3 34 H (21-25) mmol/L ABG Total CO2 35 H (19-24) mmol/L ABG O2 Saturation 92.5 L (94-97) % Chloride 108 H (98-107) mmol/L BUN 44 H (9-20) mg/dL Glucose 102 H (74-99) mg/dL Assessment and Plan Plan: In-hospital cardiac arrest requiring CPR and subsequent return of spontaneous circulation within approximately 5 minutes the patient was given epinephrine, bicarb and the patient also had a episode of VT, given amiodarone. It is likely that this started off with a respiratory arrest and following that the patient had a cardiac arrest/asystole. The patient remains stable on oral amiodarone at a dose of 200 mg once a day. No further arrhythmias has been noted and the patient is currently hemodynamically stable. Encephalopathy post cardiac arrest and the patient is improving, currently on no sedation, no focal neurological deficits and he is also communicating. CAT scan of the brain that was done on 01/13/2023 showed no acute abnormalities. Acute hypoxemic respiratory failure secondary to above requiring intubation and mechanical ventilatory support on 01/11/2023, extubated on 01/18/2023. Chest x- ray showing some pulmonary infiltrates bilaterally and the large hiatal hernia on the left Acute bilateral pneumonia with multifocal by the pulmonary infiltrates and sputum indicating gram-negative bacillus and the patient is currently on IV Zosyn. The sputum sample was positive for Citrobacter Chronic systolic heart failure with an ejection fraction of 45% Left lower lobe airspace disease as noted on the initial CAT scan of the chest, in addition to a large hiatal hernia is off pressors. Large hiatal hernia as noted on the initial CAT scan of the chest Acute COPD exacerbation on top of chronic COPD secondary to above Hypotension requiring pressor support, currently improved and off norepinephrine History of oxygen dependent chronic obstructive pulmonary disease Chronic and ongoing tobacco dependence Chronic atrial fibrillation, anticoagulated with Eliquis, maintain on a combination of flecainide and amiodarone and the patient's current cardiac rhythm is sinus History of hypertension Hyperlipidemia Hypothyroidism History of bipolar disorder History of anxiety/depression History of marijuana use Plan: Keep the patient off sedation Wean down FiO2 as tolerated currently on 10 L with a pulse ox of 97%. Provide the patient and incentive spirometer. Monitor mental status and consider the possibility of anoxic encephalopathy. Continue IV Keppra and EEG showed no seizure activity The patient has gram-negative bacillus in his sputum , and this turned out to be Citrobacter and he is currently on IV Zosyn and this will be continued IV fluids to KVO Discontinue IV Solu-Medrol and start prednisone 20 mg by mouth daily Continue Lasix 20 milligrams IV every 24 hours Continue bronchodilator Continue same cardiac medications Complete the swallow evaluation Aggressive pulmonary toileting Consult physical therapy Condition is critical and we'll continue to follow make further recommendations based on his progress. b
[2023-01-19] MEDS: LACTATED RINGERS 500 ML IV SCH (10:46)
[2023-01-19 10:50] LABS: Basophils % (A) 0 %; Eosinophils % (A) 0 %; HCT 52.2 % (39.0-53.0); HGB 15.9 gm/dL (13.0-17.5); Hypochromasia Slight; Lymphocytes # (A) 0.9 k/uL (1.0-4.8); Lymphocytes % (A) 9 %; MCH 30.4 pg (25.0-35.0); MCHC 30.5 g/dL (31.0-37.0); MCV 99.8 fL (80.0-100.0); Mean Platelet Volume 11.5; Monocytes # (A) 0.6 k/uL (0-1.0); Monocytes % (A) 6 %; Neutrophils % (A) 84 %; Platelet Count 152 k/uL (150-450); RBC 5.23 m/uL (4.30-5.90); RDW 13.6 % (11.5-15.5); WBC 10.8 k/uL (3.8-10.6)
--- NOTE | 2023-01-19 12:17 | P.PN ---
Progress Note - Text Progress Note Date: 01/19/23 Chief Complaint: Shortness of breath, chest pain This is a 67-year-old patient who follows with Dr. Alvin Villela. Chronic stable medical conditions include hyperlipidemia, hypothyroid, bipolar, atrial fibrillation. Patient is a smoker. COPD, CHF, bipolar, hiatal hernia Patient presented to the ER, brought in by the family because of shortness of breath and chest pain. In the last 3 weeks apparently patient fallen about 3 times. No fever no chills. Some palpitations. Increasing lower extremity edema. Nonproductive cough. Late in the afternoon patient was found to be in PEA. Code team was called. Patient did require epinephrine. intubated. FiO2 100 and PEEP of 5. Patient have a broad complex tachycardia. Production Sanitizer Dr. Steve was informed. Admitted with acute COPD exacerbation, acute CHF exacerbation, acute hypoxic hypercapnic respiratory failure. Intubated. 01/12/2023: ICU. Drips include IV propofol, Levophed. Patient sedated. Telemetry shows sinus rhythm. FiO2 70 to PEEP of 5. Patient seen by enrollment management director Dr. Valdes. IV Lasix has been discontinued. IV fluids. 01/13/2023: ICU. Intubated. FiO2 70 PEEP of 10. Drips include propofol and norepinephrine. 2 feeding at 40 mL an hour. Patient went into A. fib with rapid ventricle rate yesterday. Was put on IV Cardizem and IV amiodarone. Went back into sinus rhythm. There was some concern about neuro status change for which neurology was consulted, pending computed tomography scan. No focal weakness. His started on IV Keppra per neurology 01/14/2023: ICU. Intubated. FiO2 70 PEEP of 10. Patient is off levo fed since this morning. On IV propofol. OG tube for feeding at 60 mL an hour. Significant secretions checks x-ray showing infiltrate. His started on IV Zosyn. and daughter the bedside. Discussed. Eliquis. Cordarone. IV Solu-Medrol. IV Keppra. 01/15/2023: ICU. Intubated. FiO2 70 PEEP of 10. 2 feeding. Telemetry sinus rhythm. OG tube feeding. Patient has remained off levo fed. IV Zosyn. IV Keppra. 01/16/2023: ICU. Intubated. FiO2 50 PEEP of 7. Sinus rhythm. Sedation holiday today. Getting 2 feeding. 01/17/2023: ICU. Intubated. FiO2 50 PEEP of 7. OG tube feeding. At 30 mL an hour. Sinus rhythm. Oral amiodarone. Eliquis. IV Lasix 20 mg every 12. IV Keppra. IV Zosyn. Remains off levo fed. Off propofol. 01/18/2023: ICU. Patient extubated this morning. Currently on 12 L. Lethargic but following commands. Sinus rhythm. at the bedside. Congested cough. IV Keppra. IV Zosyn. IV Lasix 01/19/2023: ICU. Patient on Ventimask at 6 L.. Diet. Sinus rhythm. Weak in all the limbs. PTOT consulted. Active Medications Acetaminophen (Acetaminophen Tab 325 Mg Tab) 650 mg PO Q4HR PRN PRN Reason: Mild Pain or Fever > 100.5 Albuterol Sulfate (Albuterol Nebulized 2.5 Mg/3 Ml) 2.5 mg INHALATION RT-QID [facility] Last Admin: 01/19/23 11:30 Dose: Not Given Amiodarone HCl (Amiodarone 200 Mg Tab) 200 mg PO BID [facility] Last Admin: 01/19/23 08:30 Dose: 200 mg Apixaban (Apixaban 5 Mg Tab) 5 mg PO BID [facility]; Protocol Last Admin: 01/19/23 08:30 Dose: 5 mg Aspirin (Aspirin 81 Mg) 81 mg PO DAILY [facility] Last Admin: 01/19/23 08:31 Dose: 81 mg Budesonide (Budesonide 1 Mg/2 Ml Nebu) 1 mg INHALATION RT-BID [facility] Last Admin: 01/19/23 07:51 Dose: 1 mg Chlorhexidine Gluconate (Chlorhexidine Gluconate 15 Ml Cup) 15 ml MUCOUS MEM BID [facility] Last Admin: 01/19/23 08:43 Dose: Not Given Docusate Sodium (Docusate Oral Soln 100 Mg/10 Ml Cup) 100 mg PO BID [facility] Last Admin: 01/19/23 08:43 Dose: 100 mg Formoterol Fumarate (Formoterol Fumarate 20 Mcg/2 Ml Nebu) 20 mcg INHALATION RT-BID [facility] Last Admin: 01/19/23 07:52 Dose: 20 mcg Furosemide (Furosemide 10 Mg/Ml 4 Ml Vial) 40 mg IV Q12HR [facility] Gabapentin (Gabapentin 100 Mg Cap) 200 mg PO TID [facility] Last Admin: 01/19/23 08:30 Dose: 200 mg Hydromorphone HCl (Hydromorphone 1 Mg/Ml 1 Ml Syringe) 1 mg IVP Q4HR PRN PRN Reason: MODERATE TO SEVERE PAIN (4-10) Last Admin: 01/17/23 22:38 Dose: 1 mg Levetiracetam 750 mg/ Sodium (Chloride) 107.5 mls @ 400 mls/hr IVPB Q12HR [facility] Last Admin: 01/19/23 08:43 Dose: 400 mls/hr Piperacillin Sod/Tazobactam (Sod 3.375 gm/ Sodium Chloride) 100 mls @ 25 mls/hr IVPB Q8HR [facility]; Protocol Last Admin: 01/19/23 08:24 Dose: 25 mls/hr Insulin Aspart (Insulin Aspart (Novolog) 100 Unit/Ml Vial) 0 unit SQ Q6HR [facility]; Protocol Last Admin: 01/19/23 06:08 Dose: Not Given Ipratropium [place] (Ipratropium 0.5 Mg/2.5 Ml Nebu) 0.5 mg INHALATION RT-QID [facility] Last Admin: 01/19/23 11:30 Dose: Not Given Latanoprost (Latanoprost 0.005% Ophth Drops 2.5 Ml Btl) 1 drops LEFT EYE HS [facility] Last Admin: 01/18/23 21:32 Dose: 1 drops Levothyroxine Sodium (Levothyroxine 125 Mcg Tab) 125 mcg PO DAILY@0630 [facility] Last Admin: 01/19/23 06:25 Dose: 125 mcg Lisinopril (Lisinopril 2.5 Mg Tab) 2.5 mg PO BID [facility] Last Admin: 01/19/23 08:43 Dose: 2.5 mg Metoclopramide HCl (Metoclopramide Oral Soln 10 Mg/10 Ml Cup) 10 mg PO TID [facility] Last Admin: 01/19/23 08:42 Dose: 10 mg Metoprolol Tartrate (Metoprolol Tartrate 25 Mg Tab) 75 mg PO BID [facility] Last Admin: 01/19/23 08:30 Dose: 75 mg Miscellaneous Information (Potassium Replacement Protocol 1 Each Misc) 1 each MISCELLANE DAILY PRN; Protocol PRN Reason: Per Protocol Naloxone HCl (Naloxone 0.4 Mg/Ml 1 Ml Vial) 0.2 mg IVP Q2M PRN PRN Reason: Opioid Reversal Nicotine (Nicotine 21mg/24hr Patch) 1 patch TRANSDERM DAILY [facility] Last Admin: 01/19/23 08:24 Dose: 1 patch Olanzapine (Olanzapine 10 Mg Tab) 20 mg PO HS [facility] Last Admin: 01/18/23 20:26 Dose: 20 mg Pantoprazole Sodium (Pantoprazole 40 Mg Tablet) 40 mg PO DAILY [facility] Last Admin: 01/19/23 08:30 Dose: 40 mg Prednisone (Prednisone 20 Mg Tab) 20 mg PO DAILY [facility] Past medical history to include: COPD, hyperlipidemia, hypothyroid, bipolar, atrial fibrillation, bipolar, CHF, he had hernia Social history: Lives with sister Marifer, smokes a pack a day for many years, no alcohol Physical examination: VITAL SIGNS: Afebrile, 67, 18, 123.93, 99% on 6 L GENERAL: Reclining, less lethargic EYES: Pupils equal. Conjunctiva normal. HEENT: External appearance of nose and ears normal, oral cavity grossly normal. NECK: JVD is able to assess; masses not palpable. HEART: First and second heart sounds are normal; edema present LUNGS: Respiratory rate increased; decreased breath sounds , coarse breath sounds ABDOMEN: Soft, nontender, liver spleen not palpable, no masses palpable. PSYCH: Following commands. MUSCULOSKELETAL:No Clubbing/cyanosis;muscles-grossly intact. Evidence of OA INVESTIGATIONS, reviewed in the clinical context: 01/19/2023: White count 10.8 hemoglobin 15.9 platelets 152 Sputum culture: Citrobacter koseri EEG: Encephalopathy. No seizure activity. 01/13/2023: White count 7.19 globin 16.2 potassium 3.9 BUN 23 creatinine 1.03 troponin I 0.016 proBNP 1150 2-D echocardiogram: EF 45-50%. Right ventricle dilatation, right ventricular hypertrophy 01/12/2023: White count 13.9 hemoglobin 16.2 platelets 123 potassium 3.7 creatinine 1.19 cortisol 22 TSH 0.548 White count 10.6 hemoglobin 16.4 platelets 153 potassium 3.1 BUN 24 creatinine 1.4 to AST 79 ALT 65 Procalcitonin 0.08 ABG: PH 7.18 pCO2 102 pO2 153 EKG tracing personally reviewed by me-normal sinus rhythm. Intraventricular block. Poor R-wave progression. Chest x-ray film personally reviewed by me-large hiatal hernia. Cardiomegaly. Venous prominence. Assessment and plan: -Acute hypoxic and hypercapnic respiratory failure secondary to COPD exacerbation and CHF exacerbation: Slow to respond Was on ventilator assist. Extubated January 18. Currently 6 L nasal cannula -Paroxysmal atrial fibrillation flutter, had an episode of rapid rate - Back in sinus rhythm Telemetry. Eliquis 5 mg twice a day. Lopressor 75 mg twice a day flecainide- discontinued. Cordarone. -Possible seizure per neurology. On Keppra. EEG negative for seizure activity -Critical care myopathy.: New diagnosis Passive exercises. PTOT. -Possible aspiration pneumonia, culture positive for Citrobacter koseri IV Zosyn -Acute COPD exacerbation in a current smoker Albuterol 4 times a day.. Prednisone 20 mg. Nebulized Perforomist and Pulmicort, -Acute on Chronic congestive heart failure from systolic dysfunction EF 45-50%-slow to respond IV Lasix 40 mg every 12 -Hypothyroid Levothyroxine 125 g a day -Essential hypertension Zestril 2.5 twice a day. Lopressor 75 mg twice a day -Cardiogenic shock: Better Taken off off levo fed -OG tube feeding-discontinued -Chronic nicotine dependence, cigarette smoker Nicotine patch -Bipolar disorder Zyprexa 20 mg daily at bedtime. -Full code Bronchodilators. Prednisone 20 mg. IV Keppra. IV Zosyn eliquis. Amiodarone. . Diet. PTOT for critical care myopathy. Pured diet.
[2023-01-19] MEDS: predniSONE 20 MG TAB PO SCH (12:35)
--- NOTE | 2023-01-19 17:22 | P.PN ---
Subjective Progress Note Date: 01/19/23 01/19/2023: Patient was seen for a follow-up. Patient is more alert and awake, but still lethargic, slightly slow mentation. Offers no complaints. Patient is slightly congested. 01/18/2023: Patient was seen for a follow-up. Patient has been extubated. Patient is groggy. Offers no complaints. Patient denies headache. 01/17/2023: Patient was seen for a follow-up. Patient's 2 sisters including Marifer was present. Patient has been off sedation since 11 AM yesterday. Patient started waking up. Neurologically he is making much progress. He is still on 70% FiO2. The PEEP has been decreased. 01/16/2023: Patient was seen for a follow-up. Patient is off sedation since 11 AM today. Now 2:35 PM. Patient is intubated, minimal response as per examination below. No obvious seizure activity. His PEEP was decreased and O2 requirement. 01/15/2023: Patient initially seen by Dr. Chuy Steve. Please refer to his note for details. Patient is a 67-year-old male who came for shortness of breath. Patient had a cardiac arrest for 5 minutes and ?seizure witnessed by the nurse. Patient currently on Keppra 750 mg twice a day. EEG was negative for any seizures but patient has severe encephalopathy. CT head was reported as negative. Patient at present is on propofol 40 mcg/kg/m. Some other workup during the hospital visit consisted of Initial ABGs of pH is 7.18 predominantly hypercapnic. PH has normalized but the pCO2 was 67 bicarbonate is 37 Initial creatinine is 1.56 but it's trending down sodium on presentation 132 but it's improved magnesium is normal AST most recent 79 ALT 65 TSH is 0.548 2D echo was reported as poor quality study left ventricle size is normal there is mild global decrease in contractility noted. Endocardial margins are poorly seen. Occult contrast was not used. There is mild mitral annular calcification and aortic sclerosis. Sinus rhythm with first-degree AV block with frequent suburban ventricular premature complex. Possible left atrial enlargement. Possible right ventricular hypertrophy. Ammonia level is 30 (normal is <30). EEG: Is abnormal. The background slowing is suggestive of severe encephalopathy. Otherwise no focal slowing, epitleptiform discharge or seizure on the EEG. CT head is reported as negative. No change. Objective - Vital Signs Vital signs: Vital Signs Temp 98.2 F 01/19/23 12:00 Pulse 55 L 01/19/23 13:00 Resp 21 01/19/23 13:00 BP 128/92 01/19/23 13:00 Pulse Ox 92 L 01/19/23 13:00 FiO2 50 01/19/23 07:52 Intake & Output 01/18/23 01/19/23 01/19/23 18:59 06:59 18:59 Intake Total 500 645 645 Output Total 2575 1495 1100 Balance -2075 -850 -455 Weight 119.3 kg 107.4 kg Intake: IV 320 645 405 .9NS 120 220 115 Invasive Line 3 90 Piperacillin-Tazobactam 3 100 25 100 .375 gm In Sodium Chloride 0.9% 100 ml @ 25 mls/hr IVPB Q8HR [facility] Rx# :[id number] levETIRAcetam IV 750 mg 100 400 100 In Sodium Chloride 0.9% 100 ml @ 400 mls/hr IVPB Q12HR [facility] Rx#:[id number] Intake, IV Titration 60 Amount Lactated Ringers 1,000 ml 60 @ 20 mls/hr IV .Q24H [facility] Rx#:[id number] Oral 240 Tube Feeding 90 Other 30 Output: Urine 2575 1495 1100 Other: Voiding Method Indwelling Catheter Indwelling Catheter Indwelling Catheter ABP, PAP, CO, CI - Last Documented Arterial Blood Pressure 130/75 - Exam Patient is slightly lethargic, slightly slow mentation, but wakes up and is quite appropriate. Patient states it is February and the year is 2021. He knows he is in the hospital, but could not tell the name of the hospital. He knows that he is in [place], but could not tell the city. Patient's voice is very hoarse. His pupils are equal, 4 mm reacting to 3 mm bilaterally. Extraocular muscles are intact. Patient's visual prabhakar are full with no neglect. Face is symmetric, tongue protrudes the midline. Patient's tongue is coated. Patient muscle strength (right/left) deltoid 2/2, biceps 5-4+/5-4+, triceps 5-4+/5-4+, hand inspector 5-4+/5-4+, hip flexion 2/2, ankle dorsiflexion 2/2. Deep tendon reflexes are symmetric, 1 at the biceps, trace brachioradialis, 2+ at the knees, 0 ankles and plantars are downgoing bilaterally. Patient has moderate peripheral edema. Tone is normal in the arms and legs. Cerebellar functions cannot be assessed because his deltoids are so weak. - Labs CBC & Chem 7: 01/19/23 06:00 01/19/23 05:00 Labs: Abnormal Lab Results - Last 24 Hours (Table) 01/19/23 01/19/23 Range/Units 05:00 06:00 WBC 10.8 H (3.8-10.6) k/uL MCHC 30.5 L (31.0-37.0) g/dL Neutrophils # 9.0 H (1.3-7.7) k/uL Lymphocytes # 0.9 L (1.0-4.8) k/uL Chloride 108 H (98-107) mmol/L BUN 44 H (9-20) mg/dL Glucose 102 H (74-99) mg/dL Assessment and Plan Assessment: This is a 67-year-old gentleman who presented because of the severe shortness of breath and dyspnea. In the emergency department he had cardiopulmonary arrest requiring CPR for 5 minutes. Status post Cardiopulmonary arrest Status post extubation. Altered mental status, likely due to hypoxic and metabolic encephalopathy. Patient's mentation much improving. Patient is following commands. EEG is negative for seizure activity. CT head is negative. Probable Seizure due to his cardiopulmonary arrest (reported had shaking of all extremities, unequal pupils and tongue bite)--resolved with 2mg Ativan Cardiogenic shock on Norepi Severe shortness of breath with dyspnea. On a ventilator after the cardiopulmonary arrest Acute kidney injury--resolved History of Atrial fibrillation on eliquis History of possible stroke behind the left eye Of hypertension Hyperlipidemia Hypothyroidism Nicotine dependence Plan: Patient is extubated, following directions, and the muscle strength is improving. Mentation also improving. Patient still very weak proximally more than distally in the upper limbs, there is he is weak distally and proximally in the lower limbs. Reflexes are present, therefore no evidence of Meghna Lisa. Perhaps critical illness myopathy. We will check B12, folate, hemoglobin A1c, CK, B6, acetylcholine receptor antibodies. TSH is normal. Continue Keppra 750mg every 12 hours for seizure. We will consider weaning down Keppra once mentation normalizes. Please avoid any hypotensive episode We'll defer the rest of the medical management to primary team We will follow clinically.
[2023-01-19] MEDS ORDERED: bisacodyL 10 MG SUPP RECTAL PRN (18:14)
[2023-01-19] MEDS: FUROSEMIDE 10 MG/ML 4 ML VIAL IV SCH (22:30)
[2023-01-19] MEDS: OLANZapine 10 MG TAB PO SCH (22:30)
[2023-01-19] MEDS: SENNOSIDES-DOCUSATE SODIUM 1 EACH TAB PO SCH (22:31)
[2023-01-19] MEDS: LATANOPROST 0.005% OPHTH DROPS 2.5 ML BTL LEFT EYE SCH (22:33)
[2023-01-20 04:57] LABS: African American GFR (CKD) >90 (>60 ml/min/1.73 sqM); Anion Gap 4 mmol/L; Blood Urea Nitrogen 48 mg/dL (9-20); Calcium 9.2 mg/dL (8.4-10.2); Carbon Dioxide 35 mmol/L (22-30); Chloride 105 mmol/L (98-107); Glucose 86 mg/dL (74-99); Non-African American GFR(CKD) 84 (>60 ml/min/1.73 sqM); Potassium 4.1 mmol/L (3.5-5.1); Sodium 144 mmol/L (137-145)
[2023-01-20] MEDS: LEVOTHYROXINE 125 MCG TAB PO SCH (07:07)
[2023-01-20] MEDS: FORMOTEROL FUMARATE 20 MCG/2 ML NEBU INHALATION SCH ×2 (07:34→20:14)
[2023-01-20] MEDS: ALBUTEROL NEBULIZED 2.5 MG/3 ML INHALATION SCH ×4 (07:34→20:14)
[2023-01-20] MEDS: BUDESONIDE 1 MG/2 ML NEBU INHALATION SCH ×2 (07:34→20:14)
[2023-01-20] MEDS: IPRATROPIUM 0.5 MG/2.5 ML NEBU INHALATION SCH ×4 (07:34→20:14)
[2023-01-20] MEDS: PIPERACILLIN-TAZOBACTAM 3.375 GM in SODIUM CHLORIDE 0.9% 100 ML IVPB SCH ×2 (08:31→15:30)
[2023-01-20] MEDS: GABAPENTIN 100 MG CAP PO SCH ×3 (08:32→19:49)
[2023-01-20] MEDS: NICOTINE 21MG/24HR PATCH TRANSDERM SCH (08:32)
[2023-01-20] MEDS: APIXABAN 5 MG TAB PO SCH ×2 (08:32→19:48)
[2023-01-20] MEDS: FUROSEMIDE 10 MG/ML 4 ML VIAL IV SCH (08:32)
[2023-01-20] MEDS: ASPIRIN 81 MG PO SCH (08:33)
[2023-01-20] MEDS: METOPROLOL TARTRATE 25 MG TAB PO SCH (08:33)
[2023-01-20] MEDS: predniSONE 20 MG TAB PO SCH (08:33)
[2023-01-20] MEDS: SENNOSIDES-DOCUSATE SODIUM 1 EACH TAB PO SCH ×2 (08:33→19:47)
[2023-01-20] MEDS: PANTOPRAZOLE 40 MG TABLET PO SCH (08:33)
[2023-01-20] MEDS: AMIODARONE 200 MG TAB PO SCH ×2 (08:34→19:47)
[2023-01-20] MEDS: levETIRAcetam IV 750 MG in SODIUM CHLORIDE 0.9% 100 ML IVPB SCH (08:37)
--- NOTE | 2023-01-20 08:42 | P.PN ---
Subjective Progress Note Date: 01/20/23 PROGRESS NOTE The patient is a 67-year-old male with known history of atrial fibrillation, anticoagulated, chronic obstructive lung disease, marijuana use, bipolar disorder, hypertension and hyperlipidemia who presented with worsening dyspnea. He had a cardiac arrest with nonsustained VT, he was intubated and transferred to the ICU. His echocardiogram was reported showing an ejection fraction of 45-50%. The patient remains intubated and sedated, off norepinephrine. Hemodynamically he is stable. His urinary output is stable. There is no evidence of ventricular tachycardia. January 16: The patient remains intubated and sedated. Hemodynamically stable. He has no evidence of ventricular ectopic activity. He has evidence of respiratory failure with bilateral pneumonia. His urinary output is good. He has a prior history of COPD. He has mild cardiomyopathy on the echocardiogram. There is a history of paroxysmal atrial fibrillation, on amiodarone. His flecainide has been stopped. He is in sinus mechanism at this time. January 17: The patient remains intubated and sedated, hemodynamically stable. There is no evidence of ventricle tachycardia. His urinary output has been stable. He has no malignant arrhythmia. He is tolerating his present regimen of PANTERA inhibitor and beta jazmin. He continues to be on amiodarone. He is receiving nutrition per NG tube. He continues to be sedated on propofol. His EKG showed severe encephalopathy January 18: The patient remains intubated, responding to verbal stimulation, following verbal command. On no vasopressors. He has good urinary output continues to be in sinus mechanism. He has no evidence of malignant arrhythmia. His blood pres sure is stable. His oxygenation is improving. January 19: The patient is extubated, feels tired, awake and following commands. He is in sinus mechanism and his blood pressure is stable. There is no evidence of ventricular ectopic activity. He is on no vasopressors. His urinary output is good. He was on BiPAP during the night. January 20: The patient is awake, tired in sinus mechanism. Following commands. His blood pressure is stable. There is no evidence of atrial fibrillation or malignant arrhythmia. Hemodynamically he is stable. He is lethargic answering slowly. Medications: Amiodarone 200 mg twice a day, aspirin once a day, metoprolol 75 mg twice a day, levothyroxine, methylprednisolone, Eliquis 5 mg twice a day, Lasix 40 mg IV every 12 hours, lisinopril 2.5 mg twice a day PHYSICAL EXAMINATION: Blood pressure 115/80 heart rate 60, awake and alert LUNGS: Clear to auscultation anteriorly HEART: Regular rate and rhythm, S1, S2. No S3. systolic ejection murmur ABDOMEN: Soft, positive bowel sounds, no organomegaly, nontender EXTREMETIES: Trace edema, chronic skin changes LAB: Potassium 4.1, BUN 48, creatinine 0.95 IMPRESSION: 1. Cardiac arrest with respiratory failure, no evidence of acute coronary syndrome, cardiac arrest most likely secondary to the respiratory failure and the pneumonia, resolved, patient extubated 2. History of atrial fibrillation, anticoagulated, maintaining sinus mechanism 3. History of COPD and chronic tobacco use 4. History of hypertension PLAN: 1. Continue present dose of beta jazmin and PANTERA inhibitor 2. Follow renal functions 3. Physical therapy 4. Depending on his progress further recommendations will be made Objective - Vital Signs Vital signs: Vital Signs Temp 97.9 F 01/20/23 04:00 Pulse 70 01/20/23 07:56 Resp 23 01/20/23 07:00 BP 115/81 01/20/23 07:00 Pulse Ox 96 01/20/23 07:00 FiO2 50 01/19/23 07:52 Intake & Output 01/19/23 01/20/23 01/20/23 18:59 06:59 18:59 Intake Total 943 560 20 Output Total 1700 3075 50 Balance -757 -2515 -30 Weight 107.4 kg Intake: IV 585 440 20 .9NS 155 240 20 Invasive Line 3 120 Invasive Line 5 10 Piperacillin-Tazobactam 3 200 .375 gm In Sodium Chloride 0.9% 100 ml @ 25 mls/hr IVPB Q8HR [facility] Rx# :[id number] levETIRAcetam IV 750 mg 100 200 In Sodium Chloride 0.9% 100 ml @ 400 mls/hr IVPB Q12HR [facility] Rx#:[id number] Oral 358 120 Output: Urine 1700 3075 50 Other: Voiding Method Indwelling Catheter Indwelling Catheter Indwelling Catheter ABP, PAP, CO, CI - Last Documented Arterial Blood Pressure 130/75 - Labs CBC & Chem 7: 01/19/23 06:00 01/20/23 04:15 Labs: Abnormal Lab Results - Last 24 Hours (Table) 01/19/23 01/19/23 01/19/23 Range/Units 06:00 21:03 21:03 WBC 10.8 H (3.8-10.6) k/uL MCHC 30.5 L (31.0-37.0) g/dL Neutrophils # 9.0 H (1.3-7.7) k/uL Lymphocytes # 0.9 L (1.0-4.8) k/uL Carbon Dioxide (22-30) mmol/L BUN (9-20) mg/dL Hemoglobin A1c 6.2 H (0.0-6.0) % Creatine Kinase 54 L (55-170) U/L 01/20/23 Range/Units 04:15 WBC (3.8-10.6) k/uL MCHC (31.0-37.0) g/dL Neutrophils # (1.3-7.7) k/uL Lymphocytes # (1.0-4.8) k/uL Carbon Dioxide 35 H (22-30) mmol/L BUN 48 H (9-20) mg/dL Hemoglobin A1c (0.0-6.0) % Creatine Kinase (55-170) U/L
--- NOTE | 2023-01-20 08:59 | P.PN ---
Subjective Progress Note Date: 01/20/23 67-year-old male patient was being seen on follow-up on 01/15/2023. The patient is currently intubated on a mechanical ventilator. The patient is known to have COPD and chronic hypoxic respiratory failure in addition to multiple comorbidities including atrial fibrillation, hypertension, hypothyroidism, bipolar disorder and is a chronic smoker. He came into the emergency department because of worsening shortness of breath. In the ED, the patient a cardiac arrest for approximately 5 minutes and he was resuscitated after being given epinephrine 3 and bicarb. He did encounter some nonsustained VT and he was given amiodarone. Following that, he was transferred to the intensive care unit. He did encounter some seizure activity following his cardiac arrest. This morning, the patient remains on propofol which is running at 40 mcg/kg/m. His calm and comfortable and symptoms of mechanical ventilator. He remains on assist-control mode of mechanical ventilation at the rate of 24, tidal volume of 450, FiO2 of 70% and a PEEP of 10. Chest x-ray showing bilateral lower lobe effusion/consolidation. The ET tube needs to be adjusted and pushed him by another 1 cm.. No significant orotracheal secretions at this point in time. The patient does have multifocal airspace disease mainly in the lower lobes. The patient has a blood gas that shows a pH of 7.4 with a pCO2 of 61 and pO2 of 80. His peak airway pressure is 26 on the mechanical ventilator. He is on IV fluids and currently is on lactated Ringer at the rate of 75 mL an hour. His WBC count is at 11.4 with a hemoglobin of 14.9 and a platelet count of 139. Sodium is at 139 with a potassium level of 4.5, bicarb is at 37 BUN is at 39 with a creatinine of 0.9. His proBNP level at time of admission was 1590 and it gradually dropped. His sputum is positive for gram-negative bacillus and the patient is currently on IV Zosyn. His cardiac rhythm is currently sinus. He is on amiodarone 200 mg by mouth twice a day, and flecainide 50 mg by mouth twice a day. He has been also on long-term anticoagulation with Eliquis. He remains on bronchodilators. He remains on IV Solu-Medrol. Antibiotic coverage with IV Zosyn. He was started on IV Keppra regarding his seizure activity. Neurology is on the case. EEG was done on 01/13/2023 and it showed severe encephalopathy. No seizure activity was noted otherwise. His echocardiogram that was done on 01/12/2023 showed poor LV function which was in the order of ejection fraction of 45%. There was evidence of RV dilatation. There was evidence of RV hypertrophy. There was normal RV function. There is also grade 1 diastolic dysfunction. The patient is also on vital high-protein which is running at 60 mL an hour and is having and encountering high residuals. CAT scan of the brain was essentially negative. On today's evaluation of 01/16/2023, the patient is being seen in follow-up. The patient remains intubated on a mechanical ventilator. There is a case of pneumonia with respiratory failure and subsequent cardiac arrest. This morning, the patient is still on propofol which is running at 25 mcg/kg/m. Noted the patient was given a sedation holiday yesterday. He did not fully recover. He became restless and agitated and asynchronous a mechanical ventilator. He was not following any commands. The holiday was aborted and the patient was placed back on propofol. The same will be done today. He remains on a mechanical ventilator. Assist-control mode at the rate of 24, tidal volume of 450, FiO2 of 60% with a PEEP of 10. PH is at 7.4 with a pCO2 of 64 and pO2 of 76. Chest x- ray showing a large hiatal hernia. The patient has bibasilar atelectasis and infiltrates, essentially unchanged compared to yesterday. The sputum is positive for Citrobacter and the patient is currently covered with IV Zosyn which is appropriate for the time being. No significant orotracheal secretions. The patient is also on Ventolin about treatments [id number], is also on a combination of Pulmicort and Perforomist nebulized treatments. He is receiving IV Solu-Medrol at a dose of 40 mg every 12 hours. I wean the Solu-Medrol yesterday the patient is less bronchospastic and wheezy as is recovering from an acute COPD exacerbation. Hemodynamically, the patient is in normal sinus rhythm. The patient is hemodynamically stable on no pressors. The patient r emains on Lasix 20 mg IV every 12 hours. The patient has been in negative fluid balance of 1 L over the past 24 hours. As such, diuretics will be continued. BUN is at 47 with a creatinine of 1.1 and sodium level is at 141. The WBC count is at 9.9 with a hemoglobin of 15 and a platelet count of 137. We are having ongoing issues with enteral feeding. The patient is a large hiatal hernia. He was having high residuals probably related to his hiatal hernia. Currently, he is on enteral feeding with vital high-protein at the rate of 30 mL an hour. He was also given Reglan. The OG tube may need to be repositioned. He is having issues with hypertension. He is currently on a combination of metoprolol 75 mg by mouth twice a day, diuretics also will help him with his blood pressure control, in combination with lisinopril 2.5 mg by mouth daily.. He is also on amiodarone as the patient did encounter nonsustained V. tach. His echo cardiac exam showed an ejection fraction of 45%, grade 1 diastolic heart failure, evidence of RV hypertrophy and dilation. 01/17/2023, patient is being seen in follow-up in the intensive care unit. Noted the patient is currently intubated on a mechanical ventilator. There was a concern of encephalopathy post cardiac arrest. His cardiac arrest was rather brief. The patient was taken off sedation yesterday at around 11 AM and the patient is still very much somnolent and sleepy. Nevertheless, upon repeated stimulation, he is able to follow some simple commands. He would open up his eyes spontaneously and he would squeeze using his hands. Nevertheless, his response is not consistent and is quite somnolent and lethargic and sleepy still. He remains off sedation. Is able to tolerate the mechanical ventilator reveal well and the patient this morning is on assist control mode at the rate of 24, tidal volume of 450, FiO2 of 50% with a PEEP of 8. His pulse ox was 90- 93%. Blood gas showed a pH of 7.43 with a pCO2 of 57 and pCO2 of 69. His chest x-ray reveals a large hiatal hernia and we are seeing the NG tube coiling up into his stomach and is up in the chest. There is evidence of pleural effusion bibasilar pulmonary infiltrates/atelectasis. I would say, the chest x-ray findings somewhat suboptimal due to the large hiatal hernia and its present in his left chest. Meanwhile, his sputum sample was positive for Citrobacter. The patient remains on IV antibiotics and the patient is currently on IV Zosyn. Minimal respiratory secretions for now. Gas was noted. PEEP will be dropped onto 7. At the same time, the patient remains on bronchodilators. I was able to wean down his Solu-Medrol as the patient had a component of acute COPD exacerbation. He is obviously much less bronchospastic and wheezy and the patient remains on Solu-Medrol 40 mg every 12 hours in addition to his routine bronchodilators. Hemodynamically, he is stable. He was an obvious fluid overload and the patient is currently being diuresed. Overall fluid balance over the past 24 hours is -3.2 L as the patient is receiving Lasix 40 mg IV every 12 hours. His net fluid balance is negative. BUN is at 49 with a creatinine of 1.02. Sodiums of 143 with a potassium level of 4.9 and a bicarb level of 39. The white cell count is at 9.5 with a hemoglobin of 14.9 and a platelet count of 142. He is continuing his enteral feeding. I think the OG tube may need to be pulled out slightly and reposition. He is currently on vital high-protein at 30 mL an hour. His current cardiac rhythm is sinus. He remains on amiodarone as the patient encountered nonsustained V. tach and the time of his cardiac arrest. He is currently on oral amiodarone 200 mg by mouth twice a day. He remains on long-term anticoagulation with Eliquis 5 mg by mouth twice a day. His echo cardiac exam showed grade 1 diastolic heart failure with an ejection fraction of 45%. Rhythm is sinus. 01/18/2023, the patient is being seen for a follow-up. The patient has been off sedation for the past 48 hours. He is lethargic. He is arousable and is following simple commands. On today's evaluation, he was able to communicate and follow simple commands. He remains on a mechanical ventilator on assist control mode and currently is on a rate of 24 with a tidal volume of 450 with a PEEP of 7 and FiO2 of 60%. The blood gas shows a pH of 7.4 with episodes of 55 and a pO2 of 77. The chest x-ray shows improvement in aeration of the right lung. There is a large hiatal hernia the left. He remains on IV Lasix. The fluid balance over the past 24 hours is -2.8 L. Meanwhile, the patient is doing well. Hemodynamically stable, and the patient is a BUN of 50 with a creatinine of 1.4. The rest of the blood work is essentially within normal. The patient is a WBC count of 10.2 with a hemoglobin of 15.7 and a platelet count of 131. The patient remains on IV Zosyn. The patient continues to receive enteral feeding for nutritional support and the patient remains on vital high-protein. His cardiac rhythm remained sinus and the patient remains on amiodarone 200 mg twice a day. He remains on anticoagulation with Eliquis 5 mg by mouth twice a day. I checked a baseline weaning parameters of the bedside and following this was patient to a pressure support of 5 and a PEEP of 5 with an FiO2 of 50% and and possible extubation today. This will depend on his overall progress, his ability to pass a spontaneous breathing trial. 01/19/2023, the patient is extubated. The patient was extubated to high flow oxygen. Overnight, he required BiPAP at a pressure of 12/6 with an FiO2 50%. Currently is on 10 L of oxygen by nasal cannula with a pulse ox of 97%. Is awake. He is alert. He is lethargic. He is following commands. No focal neurological deficits at this point in time. Noted the patient is post cardiac arrest and he may have a component of anoxic encephalopathy. His cough and and swallowing is adequate. His taken some applesauce. Otherwise, he does not seem to be in significant respiratory distress. The repeat chest x-ray showed a large hiatal hernia on the left. Findings of essentially unchanged. Meanwhile, the patient remains on IV antibiotics with IV Zosyn as the patient had Citrobacter in the sputum and gram-negative pneumonia was suspected and treated accordingly. The patient is in sinus rhythm. Is on no pressors. He remains on IV Lasix. Is making excellent urine output. His fluid balance is -2.9 L over the past 24 hours. Meanwhile, his electrolytes show a BUN of 44 with a creatinine of 0.9. Sodiums of 140 and a potassium level is at 4.9. No other significant events. No fever. No hemodynamic instability. His echocardiogram at shown a preserved LV function. No cardiac arrhythmias and the patient remains on amiodarone for an episode of nonsustained V. tach that he encountered at the time of his admission. He remains on anticoagulation with Eliquis 5 mg twice a day. 01/20/2023, the patient remains extubated. This morning he is on oxygen at 5 L. He has a congested cough. At times he brings up minimal sputum. Overnight, he is using the BiPAP. Awake and alert and oriented. Is communicating. He is taking Purinethol diet. No focal neurological deficits for now. His cardiac rhythm remains sinus. His labs from today show a BUN of 48 with a creatinine of 0.9 and a sodium level of 144. The fluid balance over the past 24 hours has been -3.2 L. The patient is on Lasix 40 mg IV every 12 hours. This will be switched to oral. No major edema in lower extremities bilaterally. Shook catheter remains in place. He was taken off the IV Solu-Medrol and is currently on a prednisone burst taper. He remains on bronchodilators and the patient is currently on albuterol nebulized treatments 4 times a day [id number] and accommodation Perforomist and Pulmicort neb treatments twice a day. He is comp leting course of IV Zosyn. He had Citrobacter in his lungs. Objective - Vital Signs Vital signs: Vital Signs Temp 97.9 F 01/20/23 04:00 Pulse 70 01/20/23 07:56 Resp 23 01/20/23 07:00 BP 115/81 01/20/23 07:00 Pulse Ox 96 01/20/23 07:00 FiO2 50 01/19/23 07:52 Intake & Output 01/19/23 01/20/23 01/20/23 18:59 06:59 18:59 Intake Total 943 560 20 Output Total 1700 3075 50 Balance -757 -2515 -30 Weight 107.4 kg Intake: IV 585 440 20 .9NS 155 240 20 Invasive Line 3 120 Invasive Line 5 10 Piperacillin-Tazobactam 3 200 .375 gm In Sodium Chloride 0.9% 100 ml @ 25 mls/hr IVPB Q8HR [facility] Rx# :[id number] levETIRAcetam IV 750 mg 100 200 In Sodium Chloride 0.9% 100 ml @ 400 mls/hr IVPB Q12HR [facility] Rx#:[id number] Oral 358 120 Output: Urine 1700 3075 50 Other: Voiding Method Indwelling Catheter Indwelling Catheter Indwelling Catheter ABP, PAP, CO, CI - Last Documented Arterial Blood Pressure 130/75 - Exam GENERAL EXAM: Extubated on 5L of oxygen by nasal cannula, no signs of any respiratory distress, calm and comfortable and is communicating. HEAD: Normocephalic. EYES: Normal reaction of pupils, equal size. NOSE: Clear with pink turbinates. THROAT: Oral endotracheal and gastric tube secured in place. No erythema or exu dates. NECK: No masses, no JVD. CHEST: No chest wall deformity. LUNGS: Equal air entry with few scattered rhonchi. CVS: S1 and S2 normal with no audible murmur, regular rhythm. ABDOMEN: No hepatosplenomegaly, normal bowel sounds, no guarding or rigidity. SPINE: No scoliosis or deformity SKIN: No rashes CENTRAL NERVOUS SYSTEM: Patient slow in answering questions. He is communicating. He is appropriate. No focal neurological deficits. EXTREMITIES: There is no peripheral edema. No clubbing, no cyanosis. Peripheral pulses are intact. - Labs CBC & Chem 7: 01/19/23 06:00 01/20/23 04:15 Labs: Abnormal Lab Results - Last 24 Hours (Table) 01/19/23 01/19/23 01/19/23 Range/Units 06:00 21:03 21:03 WBC 10.8 H (3.8-10.6) k/uL MCHC 30.5 L (31.0-37.0) g/dL Neutrophils # 9.0 H (1.3-7.7) k/uL Lymphocytes # 0.9 L (1.0-4.8) k/uL Carbon Dioxide (22-30) mmol/L BUN (9-20) mg/dL Hemoglobin A1c 6.2 H (0.0-6.0) % Creatine Kinase 54 L (55-170) U/L 01/20/23 Range/Units 04:15 WBC (3.8-10.6) k/uL MCHC (31.0-37.0) g/dL Neutrophils # (1.3-7.7) k/uL Lymphocytes # (1.0-4.8) k/uL Carbon Dioxide 35 H (22-30) mmol/L BUN 48 H (9-20) mg/dL Hemoglobin A1c (0.0-6.0) % Creatine Kinase (55-170) U/L Assessment and Plan Plan: In-hospital cardiac arrest requiring CPR and subsequent return of spontaneous circulation within approximately 5 minutes the patient was given epinephrine, bicarb and the patient also had a episode of VT, given amiodarone. It is likel y that this started off with a respiratory arrest and following that the patient had a cardiac arrest/asystole. The patient remains stable on oral amiodarone at a dose of 200 mg once a day. No further arrhythmias has been noted and the patient is currently hemodynamically stable. Encephalopathy post cardiac arrest and the patient is improving, currently on no sedation, no focal neurological deficits and he is also communicating. CAT scan of the brain that was done on 01/13/2023 showed no acute abnormalities. The patient is fully alert and awake and communicating. He remains profoundly weak. He may benefit from physical therapy Acute hypoxemic respiratory failure secondary to above requiring intubation and mechanical ventilatory support on 01/11/2023, extubated on 01/18/2023. Chest x- ray showing some pulmonary infiltrates bilaterally and the large hiatal hernia on the left, no chest x-ray from today. Nevertheless, the patient is doing aggressive pulmonary toileting his oxygen is stable on 5 L nasal cannula and is completing course of IV Zosyn. Acute bilateral pneumonia with multifocal by the pulmonary infiltrates and sputum indicating gram-negative bacillus and the patient is currently on IV Zosyn. The sputum sample was positive for Citrobacter Chronic systolic heart failure with an ejection fraction of 45% Left lower lobe airspace disease as noted on the initial CAT scan of the chest, in addition to a large hiatal hernia is off pressors. Large hiatal hernia as noted on the initial CAT scan of the chest Acute COPD exacerbation on top of chronic COPD secondary to above Hypotension requiring pressor support, currently improved and off norepinephrine History of oxygen dependent chronic obstructive pulmonary disease Chronic and ongoing tobacco dependence Chronic atrial fibrillation, anticoagulated with Eliquis, maintain on a combination of flecainide and amiodarone and the patient's current cardiac rhythm is sinus History of hypertension Hyperlipidemia Hypothyroidism History of bipolar disorder History of anxiety/depression History of marijuana use Plan: Keep the patient off sedation Wean down FiO2 as tolerated currently on 5 L O2 nasal cannula Provide the patient and incentive spirometer. Monitor mental status and consider the possibility of anoxic encephalopathy. Neurologically, more awake and communicating. Nevertheless he has profound weakness. Change Lasix to oral 40 mg by mouth twice a day Contact neurology and change To oral Advance diet Physical therapy prednisone 20 mg by mouth daily Continue Lasix 20 milligrams IV every 24 hours Continue bronchodilator Continue same cardiac medications Complete the swallow evaluation Aggressive pulmonary toileting Consult physical therapy Condition is critical and we'll continue to follow make further recommendations based on his progress.
[2023-01-20] MEDS ORDERED: predniSONE 20 MG TAB PO SCH (09:00)
[2023-01-20] MEDS ORDERED: FUROSEMIDE 40 MG TAB PO SCH (09:00)
--- NOTE | 2023-01-20 10:11 | P.PN ---
Subjective Progress Note Date: 01/20/23 01/20/2023: This is a telemedicine neurology follow performed today on 01/20/2023. Patient was seen for a follow-up. Patient states he is feeling great. He denies headache, no numbness or tingling, no pain anywhere. He denies difficulty breathing, although he does appear slightly short of breath particularly while talking. He runs out of his breath. Patient states he lives with his sister aMrifer. He states that he has smoked 1 pack per day in the past. Denies drinking. Patient is laying comfortably in the bed. Oxygen is running. 01/19/2023: Patient was seen for a follow-up. Patient is more alert and awake, but still lethargic, slightly slow mentation. Offers no complaints. Patient is slightly congested. 01/18/2023: Patient was seen for a follow-up. Patient has been extubated. Patient is groggy. Offers no complaints. Patient denies headache. 01/17/2023: Patient was seen for a follow-up. Patient's 2 sisters including Marifer was present. Patient has been off sedation since 11 AM yesterday. Patient started waking up. Neurologically he is making much progress. He is still on 70% FiO2. The PEEP has been decreased. 01/16/2023: Patient was seen for a follow-up. Patient is off sedation since 11 AM today. Now 2:35 PM. Patient is intubated, minimal response as per exa mination below. No obvious seizure activity. His PEEP was decreased and O2 requirement. 01/15/2023: Patient initially seen by Dr. Chuy Steve. Please refer to his note for details. Patient is a 67-year-old male who came for shortness of breath. Patient had a cardiac arrest for 5 minutes and ?seizure witnessed by the nurse. Patient currently on Keppra 750 mg twice a day. EEG was negative for any seizures but patient has severe encephalopathy. CT head was reported as negative. Patient at present is on propofol 40 mcg/kg/m. Some other workup during the hospital visit consisted of Initial ABGs of pH is 7.18 predominantly hypercapnic. PH has normalized but the pCO2 was 67 bicarbonate is 37 Initial creatinine is 1.56 but it's trending down sodium on presentation 132 but it's improved magnesium is normal AST most recent 79 ALT 65 TSH is 0.548 2D echo was reported as poor quality study left ventricle size is normal there is mild global decrease in contractility noted. Endocardial margins are poorly seen. Occult contrast was not used. There is mild mitral annular calcification and aortic sclerosis. Sinus rhythm with first-degree AV block with frequent suburban ventricular premature complex. Possible left atrial enlargement. Possible right ventric ular hypertrophy. Ammonia level is 30 (normal is <30). EEG: Is abnormal. The background slowing is suggestive of severe encephalopathy. Otherwise no focal slowing, epitleptiform discharge or seizure on the EEG. CT head is reported as negative. No change. Objective - Vital Signs Vital signs: Vital Signs Temp 97.7 F 01/20/23 08:00 Pulse 79 01/20/23 09:00 Resp 10 L 01/20/23 09:00 BP 106/85 01/20/23 09:00 Pulse Ox 98 01/20/23 08:00 FiO2 50 01/19/23 07:52 Intake & Output 01/19/23 01/20/23 01/20/23 18:59 06:59 18:59 Intake Total 943 560 260 Output Total 1700 3075 225 Balance -296 -0424 35 Weight 107.4 kg Intake: IV 585 440 260 .9NS 155 240 60 Invasive Line 3 120 Invasive Line 5 10 Piperacillin-Tazobactam 3 200 100 .375 gm In Sodium Chloride 0.9% 100 ml @ 25 mls/hr IVPB Q8HR [facility] Rx# :[id number] levETIRAcetam IV 750 mg 100 200 100 In Sodium Chloride 0.9% 100 ml @ 400 mls/hr IVPB Q12HR [facility] Rx#:[id number] Oral 358 120 Output: Urine 1700 3075 225 Other: Voiding Method Indwelling Catheter Indwelling Catheter Indwelling Catheter ABP, PAP, CO, CI - Last Documented Arterial Blood Pressure 130/75 - Exam Patient is slightly lethargic, slightly slow mentation, but awake. Patient states it is February 2023 and that he is in [facility] in [place]. He knows the month the current president. Patient's voice is very hoarse. His pupils are equal, 4 mm reacting to 3 mm bilaterally. Extraocular muscles are intact. Patient's visual prabhakar are full with no neglect. Face is symmetric, tongue protrudes the midline. Patient's tongue is coated. Patient muscle strength (right/left) deltoid 2/2, biceps 3/3, triceps 3/3, upholsterer helper 4/4, hip flexion 2/2, ankle dorsiflexion 2/2. Patient appears to be weaker today, but examiner is different, as today is the telemedicine, with nurse Alysia examining. Deep tendon reflexes are symmetric, 1 at the biceps, trace brachioradialis, 2+ at the knees, 0 ankles and plantars are downgoing bilaterally. Patient has moderate peripheral edema. Tone is normal in the arms and legs. Cerebellar functions cannot be assessed because his deltoids are so weak. - Labs CBC & Chem 7: 01/19/23 06:00 01/20/23 04:15 Labs: Abnormal Lab Results - Last 24 Hours (Table) 01/19/23 01/19/23 01/19/23 Range/Units 06:00 21:03 21:03 WBC 10.8 H (3.8-10.6) k/uL MCHC 30.5 L (31.0-37.0) g/dL Neutrophils # 9.0 H (1.3-7.7) k/uL Lymphocytes # 0.9 L (1.0-4.8) k/uL Carbon Dioxide (22-30) mmol/L BUN (9-20) mg/dL Hemoglobin A1c 6.2 H (0.0-6.0) % Creatine Kinase 54 L (55-170) U/L 01/20/23 Range/Units 04:15 WBC (3.8-10.6) k/uL MCHC (31.0-37.0) g/dL Neutrophils # (1.3-7.7) k/uL Lymphocytes # (1.0-4.8) k/uL Carbon Dioxide 35 H (22-30) mmol/L BUN 48 H (9-20) mg/dL Hemoglobin A1c (0.0-6.0) % Creatine Kinase (55-170) U/L Assessment and Plan Assessment: This is a 67-year-old gentleman who presented because of the severe shortness of breath and dyspnea. In the emergency department he had cardiopulmonary arrest requiring CPR for 5 minutes. Status post Cardiopulmonary arrest Status post extubation. Altered mental status, likely due to hypoxic and metabolic encephalopathy. Patient's mentation much improving. Patient is following commands. EEG is negative for seizure activity. CT head is negative. Probable Seizure due to his cardiopulmonary arrest (reported had shaking of all extremities, unequal pupils and tongue bite)--resolved with 2mg Ativan Status post Cardiogenic shock Acute kidney injury--resolved History of Atrial fibrillation on eliquis History of possible stroke behind the left eye Hypertension Hyperlipidemia Hypothyroidism Nicotine dependence Plan: Patient's mentation is improving. Patient still very weak proximally more than distally in the upper limbs, whereas he is weak distally and proximally in the lower limbs. Reflexes are present, therefore no evidence of Meghna Lisa. Perhaps critical illness myopathy. B12 554, folate 5.5, hemoglobin A1c 6.2, CK 54, B6, acetylcholine receptor antibodies pending. TSH is normal. Start folic acid replacement. As no obvious reason identified with above blood testing, we will check MRI of the brain and cervical spine Continue Keppra 750mg every 12 hours for seizure. We will consider weaning down Keppra once mentation normalizes. Patient on Eliquis for atrial fibrillation. 2-D echo revealed poor quality study with mild global decrease in contractility noted. EF is 45-50%. Grade 1 diastolic dysfunction. There is mild mitral annular calcification and aortic sclerosis. We will defer the rest of the medical management to primary team We will follow clinically.
--- NOTE | 2023-01-20 18:19 | P.PN ---
Subjective This is a 67-year-old patient who follows with Dr. Alvin Villela. Chronic stable medical conditions include hyperlipidemia, hypothyroid, bipolar, atrial fibrillation. Patient is a smoker. COPD, CHF, bipolar, hiatal hernia Patient presented to the ER, brought in by the family because of shortness of breath and chest pain. In the last 3 weeks apparently patient fallen about 3 times. No fever no chills. Some palpitations. Increasing lower extremity edema. Nonproductive cough. Late in the afternoon patient was found to be in PEA. Code team was called. Patient did require epinephrine. intubated. FiO2 100 and PEEP of 5. Patient have a broad complex tachycardia. [employer] Repairer Dr. Steve was informed. Admitted with acute COPD exacerbation, acute CHF exacerbation, acute hypoxic hypercapnic respiratory failure. Intubated. 01/12/2023: ICU. Drips include IV propofol, Levophed. Patient sedated. Telemetry shows sinus rhythm. FiO2 70 to PEEP of 5. Patient seen by needle process felt goods supervisor Dr. Valdes. IV Lasix has been discontinued. IV fluids. 01/13/2023: ICU. Intubated. FiO2 70 PEEP of 10. Drips include propofol and norepinephrine. 2 feeding at 40 mL an hour. Patient went into A. fib with rapid ventricle rate yesterday. Was put on IV Cardizem and IV amiodarone. Went back into sinus rhythm. There was some concern about neuro status change for which neurology was consulted, pending computed tomography scan. No focal weakness. His started on IV Keppra per neurology 01/14/2023: ICU. Intubated. FiO2 70 PEEP of 10. Patient is off levo fed since this morning. On IV propofol. OG tube for feeding at 60 mL an hour. Signifi cant secretions checks x-ray showing infiltrate. His started on IV Zosyn. and daughter the bedside. Discussed. Eliquis. Cordarone. IV Solu-Medrol. IV Keppra. 01/15/2023: ICU. Intubated. FiO2 70 PEEP of 10. 2 feeding. Telemetry sinus rhythm. OG tube feeding. Patient has remained off levo fed. IV Zosyn. IV Keppra. 01/16/2023: ICU. Intubated. FiO2 50 PEEP of 7. Sinus rhythm. Sedation holiday today. Getting 2 feeding. 01/17/2023: ICU. Intubated. FiO2 50 PEEP of 7. OG tube feeding. At 30 mL an hour. Sinus rhythm. Oral amiodarone. Eliquis. IV Lasix 20 mg every 12. IV Keppra. IV Zosyn. Remains off levo fed. Off propofol. 01/18/2023: ICU. Patient extubated this morning. Currently on 12 L. Lethargic but following commands. Sinus rhythm. at the bedside. Congested cough. IV Keppra. IV Zosyn. IV Lasix 01/19/2023: ICU. Patient on Ventimask at 6 L.. Diet. Sinus rhythm. Weak in all the limbs. PTOT consulted. 01/20/2023 Patient remains in the ICU very weak and confused, patient today he did not answer questions and he does not follow commands he opens eyes spontaneously before go back to sleep, he was still on CPAP machine. Also he was very short of breath which limits his ability to communicate. Hemodynamically and labs are stable. He has Shook catheter in He remains on Zosyn, prednisone 20 mg, home dose of Eliquis, aspirin 81 mg, Kep pra, oral Lasix 40 mg daily and oral amiodarone 200 mg Objective - Vital Signs Vital signs: Vital Signs Temp 97.7 F 01/20/23 08:00 Pulse 70 01/20/23 11:15 Resp 21 01/20/23 10:00 BP 112/91 01/20/23 10:00 Pulse Ox 98 01/20/23 08:00 FiO2 50 01/19/23 07:52 Intake & Output 01/19/23 01/20/23 01/20/23 18:59 06:59 18:59 Intake Total 943 560 280 Output Total 1700 3075 225 Balance -601 -1919 55 Weight 107.4 kg Intake: IV 585 440 280 .9NS 155 240 80 Invasive Line 3 120 Invasive Line 5 10 Piperacillin-Tazobactam 3 200 100 .375 gm In Sodium Chloride 0.9% 100 ml @ 25 mls/hr IVPB Q8HR [facility] Rx# :[id number] levETIRAcetam IV 750 mg 100 200 100 In Sodium Chloride 0.9% 100 ml @ 400 mls/hr IVPB Q12HR [facility] Rx#:[id number] Oral 358 120 Output: Urine 1700 3075 225 Other: Voiding Method Indwelling Catheter Indwelling Catheter Indwelling Catheter ABP, PAP, CO, CI - Last Documented Arterial Blood Pressure 130/75 - Exam -GENERAL: The patient is alert very weak and lethargic and draped respiratory distress. Patient is confused HEENT: Pupils are round and equally reacting to light. EOMI. No scleral icterus. No conjunctival pallor. Normocephalic, atraumatic. No pharyngeal erythema. No thyromegaly. CARDIOVASCULAR: S1 and S2 present. No murmurs, rubs, or gallops. -PULMONARY: Chest is clear to auscultation, no wheezing or crackles. Bilateral dictation ABDOMEN: Soft, nontender, nondistended, normoactive bowel sounds. No palpable organomegaly. MUSCULOSKELETAL: No joint swelling or deformity. EXTREMITIES: No cyanosis, clubbing, or pedal edema. NEUROLOGICAL: Gross neurological examination did not reveal any focal deficits. SKIN: No rashes. no petechiae. - Labs CBC & Chem 7: 01/19/23 06:00 01/20/23 04:15 Labs: Abnormal Lab Results - Last 24 Hours (Table) 01/19/23 01/19/23 01/20/23 Range/Units 21:03 21:03 04:15 Carbon Dioxide 35 H (22-30) mmol/L BUN 48 H (9-20) mg/dL Hemoglobin A1c 6.2 H (0.0-6.0) % Creatine Kinase 54 L (55-170) U/L Assessment and Plan Assessment: -Acute hypoxic and hypercapnic respiratory failure secondary to COPD exacerbation and CHF exacerbation: Slow to respond Was on ventilator assist. Extubated January 18. Currently 6 L nasal cannula -Paroxysmal atrial fibrillation flutter, had an episode of rapid rate - Back in sinus rhythm Telemetry. Eliquis 5 mg twice a day. Lopressor 75 mg twice a day flecainide- discontinued. Cordarone. -Possible seizure per neurology. On Keppra. EEG negative for seizure activity -Critical care myopathy.: New diagnosis Passive exercises. PTOT. -Possible aspiration pneumonia, culture positive for Citrobacter koseri IV Zosyn -Acute COPD exacerbation in a current smoker Albuterol 4 times a day.. Prednisone 20 mg. Nebulized Perforomist and Pulmicort, -Acute on Chronic congestive heart failure from systolic dysfunction EF 45-50%-slow to respond IV Lasix 40 mg every 12 -Hypothyroid Levothyroxine 125 g a day -Essential hypertension Zestril 2.5 twice a day. Lopressor 75 mg twice a day -Cardiogenic shock: Better Taken off off levo fed -OG tube feeding-discontinued -Chronic nicotine dependence, cigarette smoker Nicotine patch -Bipolar disorder Zyprexa 20 mg daily at bedtime. -Full code
[2023-01-20] MEDS: LATANOPROST 0.005% OPHTH DROPS 2.5 ML BTL LEFT EYE SCH (19:48)
[2023-01-20] MEDS: OLANZapine 10 MG TAB PO SCH (19:49)
[2023-01-21] MEDS: METOPROLOL TARTRATE 25 MG TAB PO SCH ×2 (04:10→09:45)
[2023-01-21] MEDS: PIPERACILLIN-TAZOBACTAM 3.375 GM in SODIUM CHLORIDE 0.9% 100 ML IVPB SCH ×3 (04:10→16:37)
[2023-01-21] MEDS: LEVOTHYROXINE 125 MCG TAB PO SCH (06:59)
[2023-01-21] MEDS: FORMOTEROL FUMARATE 20 MCG/2 ML NEBU INHALATION SCH ×2 (07:59→20:17)
[2023-01-21] MEDS: IPRATROPIUM 0.5 MG/2.5 ML NEBU INHALATION SCH ×4 (07:59→20:27)
[2023-01-21] MEDS: ALBUTEROL NEBULIZED 2.5 MG/3 ML INHALATION SCH ×4 (07:59→20:27)
[2023-01-21] MEDS: BUDESONIDE 1 MG/2 ML NEBU INHALATION SCH ×2 (07:59→20:17)
[2023-01-21] MEDS ORDERED: FUROSEMIDE 40 MG TAB PO SCH (09:00)
--- NOTE | 2023-01-21 09:01 | P.PN ---
Subjective Progress Note Date: 01/21/23 67-year-old male patient was being seen on follow-up on 01/15/2023. The patient is currently intubated on a mechanical ventilator. The patient is known to have COPD and chronic hypoxic respiratory failure in addition to multiple comorbidities including atrial fibrillation, hypertension, hypothyroidism, bipolar disorder and is a chronic smoker. He came into the emergency department because of worsening shortness of breath. In the ED, the patient a cardiac arrest for approximately 5 minutes and he was resuscitated after being given epinephrine 3 and bicarb. He did encounter some nonsustained VT and he was given amiodarone. Following that, he was transferred to the intensive care unit. He did encounter some seizure activity following his cardiac arrest. This morning, the patient remains on propofol which is running at 40 mcg/kg/m. His calm and comfortable and symptoms of mechanical ventilator. He remains on assist-control mode of mechanical ventilation at the rate of 24, tidal volume of 450, FiO2 of 70% and a PEEP of 10. Chest x-ray showing bilateral lower lobe effusion/consolidation. The ET tube needs to be adjusted and pushed him by another 1 cm.. No significant orotracheal secretions at this point in time. The patient does have multifocal airspace disease mainly in the lower lobes. The patient has a blood gas that shows a pH of 7.4 with a pCO2 of 61 and pO2 of 80. His peak airway pressure is 26 on the mechanical ventilator. He is on IV fluids and currently is on lactated Ringer at the rate of 75 mL an hour. His WBC count is at 11.4 with a hemoglobin of 14.9 and a platelet count of 139. Sodium is at 139 with a potassium level of 4.5, bicarb is at 37 BUN is at 39 with a creatinine of 0.9. His proBNP level at time of admission was 1590 and it gradually dropped. His sputum is positive for gram-negative bacillus and the patient is currently on IV Zosyn. His cardiac rhythm is currently sinus. He is on amiodarone 200 mg by mouth twice a day, and flecainide 50 mg by mouth twice a day. He has been also on long-term anticoagulation with Eliquis. He remains on bronchodilators. He remains on IV Solu-Medrol. Antibiotic coverage with IV Zosyn. He was started on IV Keppra regarding his seizure activity. Neurology is on the case. EEG was done on 01/13/2023 and it showed severe encephalopathy. No seizure activity was noted otherwise. His echocardiogram that was done on 01/12/2023 showed poor LV function which was in the order of ejection fraction of 45%. There was evidence of RV dilatation. There was evidence of RV hypertrophy. There was normal RV function. There is also grade 1 diastolic dysfunction. The patient is also on vital high-protein which is running at 60 mL an hour and is having and encountering high residuals. CAT scan of the brain was essentially negative. On today's evaluation of 01/16/2023, the patient is being seen in follow-up. The patient remains intubated on a mechanical ventilator. There is a case of pneumonia with respiratory failure and subsequent cardiac arrest. This morning, the patient is still on propofol which is running at 25 mcg/kg/m. Noted the patient was given a sedation holiday yesterday. He did not fully recover. He became restless and agitated and asynchronous a mechanical ventilator. He was not following any commands. The holiday was aborted and the patient was placed back on propofol. The same will be done today. He remains on a mechanical ventilator. Assist-control mode at the rate of 24, tidal volume of 450, FiO2 of 60% with a PEEP of 10. PH is at 7.4 with a pCO2 of 64 and pO2 of 76. Chest x- ray showing a large hiatal hernia. The patient has bibasilar atelectasis and infiltrates, essentially unchanged compared to yesterday. The sputum is positive for Citrobacter and the patient is currently covered with IV Zosyn which is appropriate for the time being. No significant orotracheal secretions. The patient is also on Ventolin about treatments [id number], is also on a combination of Pulmicort and Perforomist nebulized treatments. He is receiving IV Solu-Medrol at a dose of 40 mg every 12 hours. I wean the Solu-Medrol yesterday the patient is less bronchospastic and wheezy as is recovering from an acute COPD exacerbation. Hemodynamically, the patient is in normal sinus rhythm. The patient is hemodynamically stable on no pressors. The patient r emains on Lasix 20 mg IV every 12 hours. The patient has been in negative fluid balance of 1 L over the past 24 hours. As such, diuretics will be continued. BUN is at 47 with a creatinine of 1.1 and sodium level is at 141. The WBC count is at 9.9 with a hemoglobin of 15 and a platelet count of 137. We are having ongoing issues with enteral feeding. The patient is a large hiatal hernia. He was having high residuals probably related to his hiatal hernia. Currently, he is on enteral feeding with vital high-protein at the rate of 30 mL an hour. He was also given Reglan. The OG tube may need to be repositioned. He is having issues with hypertension. He is currently on a combination of metoprolol 75 mg by mouth twice a day, diuretics also will help him with his blood pressure control, in combination with lisinopril 2.5 mg by mouth daily.. He is also on amiodarone as the patient did encounter nonsustained V. tach. His echo cardiac exam showed an ejection fraction of 45%, grade 1 diastolic heart failure, evidence of RV hypertrophy and dilation. 01/17/2023, patient is being seen in follow-up in the intensive care unit. Noted the patient is currently intubated on a mechanical ventilator. There was a concern of encephalopathy post cardiac arrest. His cardiac arrest was rather brief. The patient was taken off sedation yesterday at around 11 AM and the patient is still very much somnolent and sleepy. Nevertheless, upon repeated stimulation, he is able to follow some simple commands. He would open up his eyes spontaneously and he would squeeze using his hands. Nevertheless, his response is not consistent and is quite somnolent and lethargic and sleepy still. He remains off sedation. Is able to tolerate the mechanical ventilator reveal well and the patient this morning is on assist control mode at the rate of 24, tidal volume of 450, FiO2 of 50% with a PEEP of 8. His pulse ox was 90- 93%. Blood gas showed a pH of 7.43 with a pCO2 of 57 and pCO2 of 69. His chest x-ray reveals a large hiatal hernia and we are seeing the NG tube coiling up into his stomach and is up in the chest. There is evidence of pleural effusion bibasilar pulmonary infiltrates/atelectasis. I would say, the chest x-ray findings somewhat suboptimal due to the large hiatal hernia and its present in his left chest. Meanwhile, his sputum sample was positive for Citrobacter. The patient remains on IV antibiotics and the patient is currently on IV Zosyn. Minimal respiratory secretions for now. Gas was noted. PEEP will be dropped onto 7. At the same time, the patient remains on bronchodilators. I was able to wean down his Solu-Medrol as the patient had a component of acute COPD exacerbation. He is obviously much less bronchospastic and wheezy and the patient remains on Solu-Medrol 40 mg every 12 hours in addition to his routine bronchodilators. Hemodynamically, he is stable. He was an obvious fluid overload and the patient is currently being diuresed. Overall fluid balance over the past 24 hours is -3.2 L as the patient is receiving Lasix 40 mg IV every 12 hours. His net fluid balance is negative. BUN is at 49 with a creatinine of 1.02. Sodiums of 143 with a potassium level of 4.9 and a bicarb level of 39. The white cell count is at 9.5 with a hemoglobin of 14.9 and a platelet count of 142. He is continuing his enteral feeding. I think the OG tube may need to be pulled out slightly and reposition. He is currently on vital high-protein at 30 mL an hour. His current cardiac rhythm is sinus. He remains on amiodarone as the patient encountered nonsustained V. tach and the time of his cardiac arrest. He is currently on oral amiodarone 200 mg by mouth twice a day. He remains on long-term anticoagulation with Eliquis 5 mg by mouth twice a day. His echo cardiac exam showed grade 1 diastolic heart failure with an ejection fraction of 45%. Rhythm is sinus. 01/18/2023, the patient is being seen for a follow-up. The patient has been off sedation for the past 48 hours. He is lethargic. He is arousable and is following simple commands. On today's evaluation, he was able to communicate and follow simple commands. He remains on a mechanical ventilator on assist control mode and currently is on a rate of 24 with a tidal volume of 450 with a PEEP of 7 and FiO2 of 60%. The blood gas shows a pH of 7.4 with episodes of 55 and a pO2 of 77. The chest x-ray shows improvement in aeration of the right lung. There is a large hiatal hernia the left. He remains on IV Lasix. The fluid balance over the past 24 hours is -2.8 L. Meanwhile, the patient is doing well. Hemodynamically stable, and the patient is a BUN of 50 with a creatinine of 1.4. The rest of the blood work is essentially within normal. The patient is a WBC count of 10.2 with a hemoglobin of 15.7 and a platelet count of 131. The patient remains on IV Zosyn. The patient continues to receive enteral feeding for nutritional support and the patient remains on vital high-protein. His cardiac rhythm remained sinus and the patient remains on amiodarone 200 mg twice a day. He remains on anticoagulation with Eliquis 5 mg by mouth twice a day. I checked a baseline weaning parameters of the bedside and following this was patient to a pressure support of 5 and a PEEP of 5 with an FiO2 of 50% and and possible extubation today. This will depend on his overall progress, his ability to pass a spontaneous breathing trial. 01/19/2023, the patient is extubated. The patient was extubated to high flow oxygen. Overnight, he required BiPAP at a pressure of 12/6 with an FiO2 50%. Currently is on 10 L of oxygen by nasal cannula with a pulse ox of 97%. Is awake. He is alert. He is lethargic. He is following commands. No focal neurological deficits at this point in time. Noted the patient is post cardiac arrest and he may have a component of anoxic encephalopathy. His cough and and swallowing is adequate. His taken some applesauce. Otherwise, he does not seem to be in significant respiratory distress. The repeat chest x-ray showed a large hiatal hernia on the left. Findings of essentially unchanged. Meanwhile, the patient remains on IV antibiotics with IV Zosyn as the patient had Citrobacter in the sputum and gram-negative pneumonia was suspected and treated accordingly. The patient is in sinus rhythm. Is on no pressors. He remains on IV Lasix. Is making excellent urine output. His fluid balance is -2.9 L over the past 24 hours. Meanwhile, his electrolytes show a BUN of 44 with a creatinine of 0.9. Sodiums of 140 and a potassium level is at 4.9. No other significant events. No fever. No hemodynamic instability. His echocardiogram at shown a preserved LV function. No cardiac arrhythmias and the patient remains on amiodarone for an episode of nonsustained V. tach that he encountered at the time of his admission. He remains on anticoagulation with Eliquis 5 mg twice a day. 01/20/2023, the patient remains extubated. This morning he is on oxygen at 5 L. He has a congested cough. At times he brings up minimal sputum. Overnight, he is using the BiPAP. Awake and alert and oriented. Is communicating. He is taking Purinethol diet. No focal neurological deficits for now. His cardiac rhythm remains sinus. His labs from today show a BUN of 48 with a creatinine of 0.9 and a sodium level of 144. The fluid balance over the past 24 hours has been -3.2 L. The patient is on Lasix 40 mg IV every 12 hours. This will be switched to oral. No major edema in lower extremities bilaterally. Shook catheter remains in place. He was taken off the IV Solu-Medrol and is currently on a prednisone burst taper. He remains on bronchodilators and the patient is currently on albuterol nebulized treatments 4 times a day [id number] and accommodation Perforomist and Pulmicort neb treatments twice a day. He is comp leting course of IV Zosyn. He had Citrobacter in his lungs. 01/21/2023, the patient is being seen for a follow-up. Clinically doing well and the patient is much more alert and awake compared to yesterday. Is communicating. He continues to have a congestive cough. No significant sputum production. He is currently on oxygen at 5 L/m nasal cannula with a pulse ox 92%. Is still recovering from bilateral pneumonia with Citrobacter and the patient remains on IV Zosyn. He is also recovering from acute exacerbation. Electrolytes are normal, Sabi is at 48 with a creatinine of 0.9. Calcium levels at 9.2. CPK is a 54. The patient is tolerating his diet. He is quite weak and neurology is still on the case. He is post cardiac arrest that there may be a component of encephalopathy post cardiac arrest. He remains on Keppra 750 mg by mouth twice a day. No seizure activity has been noted. He remains on amiodarone for about of nonsustained VT that occurred at the time of arrest. He is also 90 cognition with Eliquis 5 mg by mouth twice a day. He continues to utilize his bronchodilators. He was switched to oral Lasix yesterday 40 mg by mouth daily. No significant edema lower extremities. Fluid balance is -2 L over the past 24 hours. Objective - Vital Signs Vital signs: Vital Signs Temp 97.9 F 01/21/23 04:00 Pulse 68 01/21/23 08:28 Resp 12 01/21/23 07:00 BP 92/66 01/21/23 07:00 Pulse Ox 92 L 01/21/23 07:56 FiO2 50 01/21/23 05:00 Intake & Output 01/20/23 01/21/23 01/21/23 17:59 06:59 18:59 Intake Total 20 Output Total 100 Balance -80 Intake: IV 20 .9NS 20 Piperacillin-Tazobactam 3 .375 gm In Sodium Chloride 0.9% 100 ml @ 25 mls/hr IVPB Q8HR [facility] Rx# :[id number] levETIRAcetam IV 750 mg In Sodium Chloride 0.9% 100 ml @ 400 mls/hr IVPB Q12HR [facility] Rx#:[id number] Output: Urine 100 Other: Voiding Method ABP, PAP, CO, CI - Last Documented Arterial Blood Pressure 130/75 - Exam GENERAL EXAM: Extubated on 5L of oxygen by nasal cannula, no signs of any respiratory distress, calm and comfortable and is communicating. HEAD: Normocephalic. EYES: Normal reaction of pupils, equal size. NOSE: Clear with pink turbinates. THROAT: Oral endotracheal and gastric tube secured in place. No erythema or exudates. NECK: No masses, no JVD. CHEST: No chest wall deformity. LUNGS: Equal air entry with few scattered rhonchi. CVS: S1 and S2 normal with no audible murmur, regular rhythm. ABDOMEN: No hepatosplenomegaly, normal bowel sounds, no guarding or rigidity. SPINE: No scoliosis or deformity SKIN: No rashes CENTRAL NERVOUS SYSTEM: Patient slow in answering questions. He is communicating. He is appropriate. No focal neurological deficits. EXTREMITIES: There is no peripheral edema. No clubbing, no cyanosis. Peripheral pulses are intact. - Labs CBC & Chem 7: 01/19/23 06:00 01/20/23 04:15 Assessment and Plan Plan: In-hospital cardiac arrest requiring CPR and subsequent return of spontaneous circulation within approximately 5 minutes the patient was given epinephrine, bicarb and the patient also had a episode of VT, given amiodarone. It is likely that this started off with a respiratory arrest and following that the patient had a cardiac arrest/asystole. The patient remains stable on oral amiodarone at a dose of 200 mg once a day. No further arrhythmias has been noted and the patient is currently hemodynamically stable. Encephalopathy post cardiac arrest and the patient is improving, currently on no sedation, no focal neurological deficits and he is also communicating. CAT scan of the brain that was done on 01/13/2023 showed no acute abnormalities. The patient is fully alert and awake and communicating. He remains profoundly weak. He may benefit from physical therapy. The patient has slightly more awake and alert compared to yesterday. Neurologic is on the case. The patient is still is on oxygen at 5 L/m nasal cannula. Acute hypoxemic respiratory failure secondary to above requiring intubation and mechanical ventilatory support on 01/11/2023, extubated on 01/18/2023. Chest x- ray showing some pulmonary infiltrates bilaterally and the large hiatal hernia on the left, no chest x-ray from today. Nevertheless, the patient is doing aggressive pulmonary toileting his oxygen is stable on 5 L nasal cannula and is completing course of IV Zosyn. Acute bilateral pneumonia with multifocal by the pulmonary infiltrates and sputum indicating gram-negative bacillus and the patient is currently on IV Zosyn. The sputum sample was positive for Citrobacter Chronic systolic heart failure with an ejection fraction of 45% Left lower lobe airspace disease as noted on the initial CAT scan of the chest, in addition to a large hiatal hernia is off pressors. Large hiatal hernia as noted on the initial CAT scan of the chest Acute COPD exacerbation on top of chronic COPD secondary to above Hypotension requiring pressor support, currently improved and off norepinephrine History of oxygen dependent chronic obstructive pulmonary disease Chronic and ongoing tobacco dependence Chronic atrial fibrillation, anticoagulated with Eliquis, maintain on a combina tion of flecainide and amiodarone and the patient's current cardiac rhythm is sinus History of hypertension Hyperlipidemia Hypothyroidism History of bipolar disorder History of anxiety/depression History of marijuana use Plan: Wean down FiO2 as tolerated currently on 5 L O2 nasal cannula Provide the patient and incentive spirometer. Monitor mental status and consider the possibility of anoxic encephalopathy. Neurologically, more awake and communicating. Nevertheless he has profound weakness. I am going to discuss the need for continuing the Keppra with neurology. The patient doesn't have any history of seizure. Continue Lasix to oral 40 mg by mouth twice a day Advance diet,. He reads food with honey thickened Physical therapy prednisone 20 mg by mouth daily, as part of his burst taper Continue bronchodilator Continue same cardiac medications Complete the swallow evaluation Aggressive pulmonary toileting Consult physical therapy BiPAP overnight We'll continue to follow.
[2023-01-21] MEDS: NICOTINE 21MG/24HR PATCH TRANSDERM SCH (09:44)
[2023-01-21] MEDS: APIXABAN 5 MG TAB PO SCH ×2 (09:44→21:14)
[2023-01-21] MEDS: ASPIRIN 81 MG PO SCH (09:45)
[2023-01-21] MEDS: AMIODARONE 200 MG TAB PO SCH ×2 (09:45→20:27)
[2023-01-21] MEDS: SENNOSIDES-DOCUSATE SODIUM 1 EACH TAB PO SCH ×2 (09:45→21:15)
[2023-01-21] MEDS: PANTOPRAZOLE 40 MG TABLET PO SCH (09:45)
[2023-01-21] MEDS: predniSONE 20 MG TAB PO SCH (09:46)
[2023-01-21] MEDS: GABAPENTIN 100 MG CAP PO SCH ×3 (09:50→21:15)
--- NOTE | 2023-01-21 10:00 | P.PN ---
Subjective Progress Note Date: 01/21/23 PROGRESS NOTE The patient is a 67-year-old male with known history of atrial fibrillation, anticoagulated, chronic obstructive lung disease, marijuana use, bipolar disorder, hypertension and hyperlipidemia who presented with worsening dyspnea. He had a cardiac arrest with nonsustained VT, he was intubated and transferred to the ICU. His echocardiogram was reported showing an ejection fraction of 45-50%. The patient remains intubated and sedated, off norepinephrine. Hemodynamically he is stable. His urinary output is stable. There is no evidence of ventricular tachycardia. January 16: The patient remains intubated and sedated. Hemodynamically stable. He has no evidence of ventricular ectopic activity. He has evidence of respiratory failure with bilateral pneumonia. His urinary output is good. He has a prior history of COPD. He has mild cardiomyopathy on the echocardiogram. There is a history of paroxysmal atrial fibrillation, on amiodarone. His flecainide has been stopped. He is in sinus mechanism at this time. January 17: The patient remains intubated and sedated, hemodynamically stable. There is no evidence of ventricle tachycardia. His urinary output has been stable. He has no malignant arrhythmia. He is tolerating his present regimen of PANTERA inhibitor and beta jazmin. He continues to be on amiodarone. He is receiving nutrition per NG tube. He continues to be sedated on propofol. His EKG showed severe encephalopathy January 18: The patient remains intubated, responding to verbal stimulation, following verbal command. On no vasopressors. He has good urinary output continues to be in sinus mechanism. He has no evidence of malignant arrhythmia. His blood pres sure is stable. His oxygenation is improving. January 19: The patient is extubated, feels tired, awake and following commands. He is in sinus mechanism and his blood pressure is stable. There is no evidence of ventricular ectopic activity. He is on no vasopressors. His urinary output is good. He was on BiPAP during the night. January 20: The patient is awake, tired, in sinus mechanism. Following commands. His blood pressure is stable. There is no evidence of atrial fibrillation or malignant arrhythmia. Hemodynamically he is stable. He is lethargic answering slowly. January 21: He is more awake and alert today. He denies any chest discomfort, dizziness or palpitations. Hemodynamically he had few episodes of lower blood pressure at night. He has no atrial fibrillation. His urine output is good. Medications: Amiodarone 200 mg twice a day, aspirin once a day, metoprolol 75 mg twice a day, levothyroxine, methylprednisolone, Eliquis 5 mg twice a day, Lasix 40 mg by mouth daily , lisinopril 2.5 mg twice a day PHYSICAL EXAMINATION: Blood pressure 101/70 heart rate 68, awake and alert LUNGS: Clear to auscultation anteriorly HEART: Regular rate and rhythm, S1, S2. No S3. systolic ejection murmur ABDOMEN: Soft, positive bowel sounds, no organomegaly, nontender EXTREMETIES: No edema, chronic skin changes LAB: Pending IMPRESSION: 1. Cardiac arrest with respiratory failure, no evidence of acute coronary syndrome, cardiac arrest most likely secondary to the respiratory failure and the pneumonia, resolved, patient extubated 2. History of atrial fibrillation, anticoagulated, maintaining sinus mechanism 3. History of COPD and chronic tobacco use 4. History of hypertension PLAN: 1. Continue present dose PANTERA inhibitor 2. Follow renal functions 3. Physical therapy 4. Decreased beta jazmin to 50 mg twice a day 5. Depending on his progress further recommendations will be made Objective - Vital Signs Vital signs: Vital Signs Temp 97.9 F 01/21/23 04:00 Pulse 68 01/21/23 08:28 Resp 12 01/21/23 07:00 BP 92/66 01/21/23 07:00 Pulse Ox 92 L 01/21/23 07:56 FiO2 50 01/21/23 05:00 Intake & Output 01/20/23 01/21/23 01/21/23 17:59 06:59 18:59 Intake Total 20 Output Total 100 Balance -80 Intake: IV 20 .9NS 20 Piperacillin-Tazobactam 3 .375 gm In Sodium Chloride 0.9% 100 ml @ 25 mls/hr IVPB Q8HR [facility] Rx# :[id number] levETIRAcetam IV 750 mg In Sodium Chloride 0.9% 100 ml @ 400 mls/hr IVPB Q12HR [facility] Rx#:[id number] Output: Urine 100 Other: Voiding Method ABP, PAP, CO, CI - Last Documented Arterial Blood Pressure 130/75 - Labs CBC & Chem 7: 01/19/23 06:00 01/20/23 04:15
--- NOTE | 2023-01-21 10:21 | P.PN ---
Subjective Progress Note Date: 01/21/23 01/21/2023: This is a telemedicine neurology follow performed today on 01/21/2023. Patient is laying comfortably in the bed. Patient states that he slept well last night. His feet feels good. Denies headache, and his speech is better. Still somewhat slurred. Patient denies any previous history of strokes or seizures. Patient had a cardiac arrest, never had any clear seizure. 01/20/2023: This is a telemedicine neurology follow performed today on 01/20/2023. Patient was seen for a follow-up. Patient states he is feeling great. He denies headache, no numbness or tingling, no pain anywhere. He denies difficulty breathing, although he does appear slightly short of breath particularly while talking. He runs out of his breath. Patient states he lives with his sister Marifer. He states that he has smoked 1 pack per day in the past. Denies drinking. Patient is laying comfortably in the bed. Oxygen is running. 01/19/2023: Patient was seen for a follow-up. Patient is more alert and awake, but still lethargic, slightly slow mentation. Offers no complaints. Patient is slightly congested. 01/18/2023: Patient was seen for a follow-up. Patient has been extubated. Patient is groggy. Offers no complaints. Patient denies headache. 01/17/2023: Patient was seen for a follow-up. Patient's 2 sisters including Marifer was present. Patient has been off sedation since 11 AM yesterday. Patient started waking up. Neurologically he is making much progress. He is still on 70% FiO2. The PEEP has been decreased. 01/16/2023: Patient was seen for a follow-up. Patient is off sedation since 11 AM today. Now 2:35 PM. Patient is intubated, minimal response as per examination below. No obvious seizure activity. His PEEP was decreased and O2 requirement. 01/15/2023: Patient initially seen by Dr. Chuy Steve. Please refer to his note for details. Patient is a 67-year-old male who came for shortness of breath. Patient had a cardiac arrest for 5 minutes and ?seizure witnessed by the nurse. Patient currently on Keppra 750 mg twice a day. EEG was negative for any seizures but patient has severe encephalopathy. CT head was reported as negative. Patient at present is on propofol 40 mcg/kg/m. Some other workup during the hospital visit consisted of Initial ABGs of pH is 7.18 predominantly hypercapnic. PH has normalized but the pCO2 was 67 bicarbonate is 37 Initial creatinine is 1.56 but it's trending down sodium on presentation 132 but it's improved magnesium is normal AST most recent 79 ALT 65 TSH is 0.548 2D echo was reported as poor quality study left ventricle size is normal there is mild global decrease in contractility noted. Endocardial margins are poorly seen. Occult contrast was not used. There is mild mitral annular calcification and aortic sclerosis. Sinus rhythm with first-degree AV block with frequent suburban ventricular premature complex. Possible left atrial enlargement. Possible right ventricular hypertrophy. Ammonia level is 30 (normal is <30). EEG: Is abnormal. The background slowing is suggestive of severe encephalopathy. Otherwise no focal slowing, epitleptiform discharge or seizure on the EEG. CT head is reported as negative. No change. Objective - Vital Signs Vital signs: Vital Signs Temp 97.9 F 01/21/23 04:00 Pulse 68 01/21/23 08:28 Resp 12 01/21/23 07:00 BP 92/66 01/21/23 07:00 Pulse Ox 92 L 01/21/23 07:56 FiO2 50 01/21/23 05:00 Intake & Output 01/20/23 01/21/23 01/21/23 17:59 06:59 18:59 Intake Total 20 Output Total 100 Balance -80 Intake: IV 20 .9NS 20 Piperacillin-Tazobactam 3 .375 gm In Sodium Chloride 0.9% 100 ml @ 25 mls/hr IVPB Q8HR [facility] Rx# :[id number] levETIRAcetam IV 750 mg In Sodium Chloride 0.9% 100 ml @ 400 mls/hr IVPB Q12HR [facility] Rx#:[id number] Output: Urine 100 Other: Voiding Method ABP, PAP, CO, CI - Last Documented Arterial Blood Pressure 130/75 - Exam Patient is slightly lethargic, slightly slow mentation, but awake. Patient states it is November and then said was December and the year is 2021. He knows that he is in [facility]. Could not tell the name of the city. He knows he is in [place]. He knows the month the current president. Patient's voice is very hoarse, slightly slurred and slow. His pupils are equal, 4 mm reacting to 3 mm bilaterally. Extraocular muscles are intact. Patient's visual prabhakar are full with no neglect. Face is symmetric, tongue protrudes the midline. Patient muscle strength (right/left) deltoid 2/2 (goes 20 on the right, 25 left), biceps 3/3, triceps 5/5, rotor balancer 4/4, hip flexion 2+/2+, ankle dorsiflexion 2/2. Deep tendon reflexes are symmetric, 1 at the biceps, trace brachioradialis, 2+ at the knees, 0 ankles and plantars are downgoing bilaterally. Patient has moderate peripheral edema. Tone is normal in the arms and legs. Cerebellar functions cannot be assessed because his deltoids are so weak. - Labs CBC & Chem 7: 01/19/23 06:00 01/20/23 04:15 Assessment and Plan Assessment: This is a 67-year-old gentleman who presented because of the severe shortness of breath and dyspnea. In the emergency department he had cardiopulmonary arrest requiring CPR for 5 minutes. Status post Cardiopulmonary arrest Status post extubation. Altered mental status, likely due to hypoxic and metabolic encephalopathy. Patient's mentation much improving. Patient is following commands. EEG is negative for seizure activity. CT head is negative. Probable Seizure due to his cardiopulmonary arrest (reported had shaking of all extremities, unequal pupils and tongue bite)--resolved with 2mg Ativan Status post Cardiogenic shock Acute kidney injury--resolved History of Atrial fibrillation on eliquis History of possible stroke behind the left eye Hypertension Hyperlipidemia Hypothyroidism Nicotine dependence Plan: Patient's mentation is improving. Patient still very weak proximally more than distally in the upper limbs, whereas he is weak distally and proximally in the lower limbs. Reflexes are present, therefore no evidence of Meghna Lisa. Perhaps critical illness myopathy. B12 554, folate 5.5, hemoglobin A1c 6.2, CK 54, B6, acetylcholine receptor antibodies pending. TSH is normal. Start folic acid replacement. As no obvious reason identified with above blood testing, we will check MRI of the brain and cervical spine Patient has never had any history of seizures. We will decrease Keppra to 500 mg twice a day. If mentation continues to improve, may be rapidly taken off Keppra. Patient on Eliquis for atrial fibrillation. 2-D echo revealed poor quality study with mild global decrease in contractility noted. EF is 45-50%. Grade 1 diastolic dysfunction. There is mild mitral annular calcification and aortic sclerosis. We will defer the rest of the medical management to primary team Dr. Chuy Steve will resume neurology service in the morning.
[2023-01-21] MEDS ORDERED: SODIUM CHLORIDE 0.9% 500 ML 250 ML IV ONE (12:53)
--- NOTE | 2023-01-21 13:05 | P.PN ---
Subjective This is a 67-year-old patient who follows with Dr. Alvin Villela. Chronic stable medical conditions include hyperlipidemia, hypothyroid, bipolar, atrial fibrillation. Patient is a smoker. COPD, CHF, bipolar, hiatal hernia Patient presented to the ER, brought in by the family because of shortness of breath and chest pain. In the last 3 weeks apparently patient fallen about 3 times. No fever no chills. Some palpitations. Increasing lower extremity edema. Nonproductive cough. Late in the afternoon patient was found to be in PEA. Code team was called. Patient did require epinephrine. intubated. FiO2 100 and PEEP of 5. Patient have a broad complex tachycardia. Waxer Operator Dr. Steve was informed. Admitted with acute COPD exacerbation, acute CHF exacerbation, acute hypoxic hypercapnic respiratory failure. Intubated. 01/12/2023: ICU. Drips include IV propofol, Levophed. Patient sedated. Telemetry shows sinus rhythm. FiO2 70 to PEEP of 5. Patient seen by bus attendant Dr. Valdes. IV Lasix has been discontinued. IV fluids. 01/13/2023: ICU. Intubated. FiO2 70 PEEP of 10. Drips include propofol and norepinephrine. 2 feeding at 40 mL an hour. Patient went into A. fib with rapid ventricle rate yesterday. Was put on IV Cardizem and IV amiodarone. Went back into sinus rhythm. There was some concern about neuro status change for which neurology was consulted, pending computed tomography scan. No focal weakness. His started on IV Keppra per neurology 01/14/2023: ICU. Intubated. FiO2 70 PEEP of 10. Patient is off levo fed since this morning. On IV propofol. OG tube for feeding at 60 mL an hour. Signifi cant secretions checks x-ray showing infiltrate. His started on IV Zosyn. and daughter the bedside. Discussed. Eliquis. Cordarone. IV Solu-Medrol. IV Keppra. 01/15/2023: ICU. Intubated. FiO2 70 PEEP of 10. 2 feeding. Telemetry sinus rhythm. OG tube feeding. Patient has remained off levo fed. IV Zosyn. IV Keppra. 01/16/2023: ICU. Intubated. FiO2 50 PEEP of 7. Sinus rhythm. Sedation holiday today. Getting 2 feeding. 01/17/2023: ICU. Intubated. FiO2 50 PEEP of 7. OG tube feeding. At 30 mL an hour. Sinus rhythm. Oral amiodarone. Eliquis. IV Lasix 20 mg every 12. IV Keppra. IV Zosyn. Remains off levo fed. Off propofol. 01/18/2023: ICU. Patient extubated this morning. Currently on 12 L. Lethargic but following commands. Sinus rhythm. at the bedside. Congested cough. IV Keppra. IV Zosyn. IV Lasix 01/19/2023: ICU. Patient on Ventimask at 6 L.. Diet. Sinus rhythm. Weak in all the limbs. PTOT consulted. 01/20/2023 Patient remains in the ICU very weak and confused, patient today he did not answer questions and he does not follow commands he opens eyes spontaneously before go back to sleep, he was still on CPAP machine. Also he was very short of breath which limits his ability to communicate. Hemodynamically and labs are stable. He has Shook catheter in He remains on Zosyn, prednisone 20 mg, home dose of Eliquis, aspirin 81 mg, Kep pra, oral Lasix 40 mg daily and oral amiodarone 200 mg 01/21/2023 Patient today is more awake and interactive but very weak and lethargic, he can hardly move his extremities: Without dyspnea secondary to his critical care myopathy, at the same time his blood pressure on the low side and is on several medications including Keppra. As reported patient with known history of seizure prior to admission and Keppra dose was lowered 750 milligrams down to 500 mg twice a day. Blood pressure was on the low site 90/60 and he is on metoprolol with dose was lowered 50 mg from 75 mg twice a day. his blood pressure into 81/60, discussed with staff for close monitoring. Shook catheter was discontinued, bladder scan was checked was 270 mm Patient remains on Zosyn, prednisone 20 mg and Eliquis, Aspirin 81. Patient was transferred to the general medical floor today Objective - Vital Signs Vital signs: Vital Signs Temp 98.3 F 01/21/23 11:47 Pulse 77 01/21/23 12:46 Resp 20 01/21/23 11:47 BP 81/60 01/21/23 12:46 Pulse Ox 93 L 01/21/23 11:47 FiO2 50 01/21/23 05:00 Intake & Output 01/20/23 01/21/23 01/21/23 17:59 06:59 18:59 Intake Total 120 Output Total 100 Balance 20 Intake: IV 20 .9NS 20 Piperacillin-Tazobactam 3 .375 gm In Sodium Chloride 0.9% 100 ml @ 25 mls/hr IVPB Q8HR [facility] Rx# :[id number] levETIRAcetam IV 750 mg In Sodium Chloride 0.9% 100 ml @ 400 mls/hr IVPB Q12HR [facility] Rx#:[id number] Oral 100 Output: Urine 100 Other: Voiding Method Indwelling Catheter ABP, PAP, CO, CI - Last Documented Arterial Blood Pressure 130/75 - Exam -GENERAL: The patient is alert very weak and lethargic and draped respiratory distress. Patient is confused HEENT: Pupils are round and equally reacting to light. EOMI. No scleral icterus. No conjunctival pallor. Normocephalic, atraumatic. No pharyngeal erythema. No thyromegaly. CARDIOVASCULAR: S1 and S2 present. No murmurs, rubs, or gallops. -PULMONARY: Chest is clear to auscultation, no wheezing or crackles. Bilateral dictation ABDOMEN: Soft, nontender, nondistended, normoactive bowel sounds. No palpable organomegaly. MUSCULOSKELETAL: No joint swelling or deformity. EXTREMITIES: No cyanosis, clubbing, or pedal edema. NEUROLOGICAL: Gross neurological examination did not reveal any focal deficits. SKIN: No rashes. no petechiae. - Labs CBC & Chem 7: 01/19/23 06:00 01/20/23 04:15 Assessment and Plan Assessment: -Acute hypoxic and hypercapnic respiratory failure secondary to COPD exa cerbation and CHF exacerbation: Slow to respond Was on ventilator assist. Extubated January 18. Currently 6 L nasal cannula -Paroxysmal atrial fibrillation flutter, had an episode of rapid rate - Back in sinus rhythm Telemetry. Eliquis 5 mg twice a day. Lopressor 75 mg twice a day flecainide-discontinued. Cordarone. -Possible seizure per neurology. On Keppra. EEG negative for seizure activity -Critical care myopathy.: New diagnosis Passive exercises. PTOT. -Possible aspiration pneumonia, culture positive for Citrobacter koseri IV Zosyn -Acute COPD exacerbation in a current smoker Albuterol 4 times a day.. Prednisone 20 mg. Nebulized Perforomist and Pulmicort, -Acute on Chronic congestive heart failure from systolic dysfunction EF 45-50%-slow to respond IV Lasix 40 mg every 12, nor to 40 mg daily -Hypothyroid Levothyroxine 125 g a day -Essential hypertension Zestril 2.5 twice a day. Lopressor 75 mg twice a day -Cardiogenic shock: Better Taken off off levo fed -OG tube feeding-discontinued -Chronic nicotine dependence, cigarette smoker Nicotine patch -Bipolar disorder Zyprexa 20 mg daily at bedtime. -Full code
[2023-01-21] MEDS ORDERED: MIDODRINE 5 MG TAB PO ONE (16:00)
[2023-01-21] MEDS: ALBUTEROL HFA INHALER INHALATION SCH (20:18)
[2023-01-21] MEDS: levETIRAcetam 500 MG TAB PO SCH (21:14)
[2023-01-21] MEDS: LATANOPROST 0.005% OPHTH DROPS 2.5 ML BTL LEFT EYE SCH (21:15)
[2023-01-21] MEDS: METOPROLOL TARTRATE 50 MG TAB PO SCH (23:47)
[2023-01-21] MEDS: OLANZapine 10 MG TAB PO SCH (23:47)
[2023-01-22] MEDS: PIPERACILLIN-TAZOBACTAM 3.375 GM in SODIUM CHLORIDE 0.9% 100 ML IVPB SCH ×4 (00:35→23:45)
[2023-01-22] MEDS: MIDODRINE 5 MG TAB PO SCH ×3 (06:15→16:36)
[2023-01-22] MEDS: LEVOTHYROXINE 125 MCG TAB PO SCH (06:15)
[2023-01-22 06:57] LABS: African American GFR (CKD) >90 (>60 ml/min/1.73 sqM); Anion Gap 5 mmol/L; Blood Urea Nitrogen 48 mg/dL (9-20); Calcium 8.8 mg/dL (8.4-10.2); Carbon Dioxide 28 mmol/L (22-30); Chloride 110 mmol/L (98-107); Glucose 89 mg/dL (74-99); Non-African American GFR(CKD) 79 (>60 ml/min/1.73 sqM); Potassium 4.1 mmol/L (3.5-5.1); Sodium 143 mmol/L (137-145)
--- NOTE | 2023-01-22 08:26 | P.PN ---
Subjective Progress Note Date: 01/22/23 Principal diagnosis: Cardiopulmonary arrest The patient is a 67-year-old gentleman who we are asked to be seen in the intensive care unit for further cardiac evaluation. Currently the patient is intubated and he is on mechanical ventilation. The history was taken from the chart as well as from the nurse taking care of the patient. Apparently the patient presented to the emergency department with progressive dyspnea of unknown duration. He is known to have chronic obstructive pulmonary disease and also paroxysmal atrial fibrillation and cardiomyopathy. In the emergency department he was evaluated and during his stay he did have an episode of cardiopulmonary arrest with PEA. The downtime was about 5 minutes. Subsequently the patient was intubated and he was admitted to the intensive care unit. Currently he is on norepinephrine. He is in normal sinus mechanism. He was on flecainide. No indication that he was experiencing any symptoms of chest pain or chest discomfort before but he presented with increasing shortness of breath. He is known to have severe COPD and he is on oxygen at 3 L. The chest x-ray showed findings consistent with chronic disease/COPD. No troponin was performed. The rest of his discomfort overall appeared unremarkable. 01/13/2023 The patient was seen this morning. He continues to be intubated on mechanical ventilation. Currently there is a concern about an exit encephalopathy and he is in process computed tomography scan. He is now in sinus mechanism with sinus bradycardia. I'm going to DC amiodarone IV and start the patient on amiodarone by mouth 200 mg twice a day the Cardizem was stopped yesterday. Hold any antic oagulation at this point. Acute coronary syndrome was ruled out with 3 serial troponin came in to be unremarkable January 142022 The patient was seen this morning. He continues to be intubated on mechanical ventilation but he is off vasopressors was norepinephrine. Urine output has been better. He has been maintaining normal sinus mechanism and currently is currently on beta jazmin as well as he is on amiodarone and he is also on oral anticoagulation. He is also on flecainide. The last echo showed an EF between 45-50%. January 222022 The patient was seen and evaluated this morning. Overall he seems to be stable beside marginally low blood pressure and heart rate. The dose of beta jazmin yesterday and I'm going to decrease the dose of amiodarone and also decrease the dose of Lasix. He continues to be on oxygen at 2 L. On examination he does have diminished breathing sounds bilaterally and mild bilateral expiratory wheezing but no lower extremities edema noted. He is on anticoagulation for the atrial fibrillation. Assessment Cardiopulmonary arrest with PEA Known severe COPD/chronic hypoxic respiratory failure Paroxysmal atrial fibrillation Multiple comorbid conditions Plan Continue the current medical regimen Decrease the dose of amiodarone Decrease the dose of Lasix Continue oral anticoagulation Follow-up with the patient Objective - Vital Signs Vital signs: Vital Signs Temp 98.2 F 01/22/23 07:22 Pulse 71 01/22/23 07:22 Resp 22 01/22/23 07:22 BP 98/67 01/22/23 07:22 Pulse Ox 90 L 01/22/23 07:22 FiO2 50 01/22/23 04:00 Intake & Output 01/21/23 01/22/23 01/22/23 18:59 06:59 18:59 Intake Total 320 417 Output Total 100 950 Balance 220 -950 417 Intake: IV 20 .9NS 20 Intake, IV Titration 100 Amount Piperacillin-Tazobactam 3 100 .375 gm In Sodium Chloride 0.9% 100 ml @ 25 mls/hr IVPB Q8HR [facility] Rx# :[id number] Oral 200 417 Output: Urine 100 950 Other: Voiding Method Indwelling Catheter Indwelling Catheter ABP, PAP, CO, CI - Last Documented Arterial Blood Pressure 130/75 - Labs CBC & Chem 7: 01/19/23 06:00 01/22/23 06:26 Labs: Abnormal Lab Results - Last 24 Hours (Table) 01/22/23 Range/Units 06:26 Chloride 110 H (98-107) mmol/L BUN 48 H (9-20) mg/dL
[2023-01-22] MEDS: NICOTINE 21MG/24HR PATCH TRANSDERM SCH (09:05)
[2023-01-22] MEDS: FUROSEMIDE 20 MG TAB PO SCH (09:05)
[2023-01-22] MEDS: levETIRAcetam 500 MG TAB PO SCH (09:05)
[2023-01-22] MEDS: SENNOSIDES-DOCUSATE SODIUM 1 EACH TAB PO SCH ×2 (09:05→21:10)
[2023-01-22] MEDS: AMIODARONE 100 MG TAB PO SCH ×2 (09:05→21:10)
[2023-01-22] MEDS: APIXABAN 5 MG TAB PO SCH ×2 (09:05→21:10)
[2023-01-22] MEDS: predniSONE 20 MG TAB PO SCH (09:05)
[2023-01-22] MEDS: PANTOPRAZOLE 40 MG TABLET PO SCH (09:05)
[2023-01-22] MEDS: ASPIRIN 81 MG PO SCH (09:05)
[2023-01-22] MEDS: GABAPENTIN 100 MG CAP PO SCH ×3 (09:05→21:10)
[2023-01-22] MEDS: METOPROLOL TARTRATE 50 MG TAB PO SCH ×2 (09:05→21:10)
[2023-01-22] MEDS: FORMOTEROL FUMARATE 20 MCG/2 ML NEBU INHALATION SCH ×2 (09:46→19:32)
[2023-01-22] MEDS: BUDESONIDE 1 MG/2 ML NEBU INHALATION SCH ×2 (09:46→19:32)
[2023-01-22] MEDS: TIOTROPIUM 2.5 MCG INHALER INHALATION SCH (09:47)
[2023-01-22] MEDS: ALBUTEROL HFA INHALER INHALATION SCH ×4 (09:47→19:32)
--- NOTE | 2023-01-22 12:27 | P.PN ---
Subjective Progress Note Date: 01/22/23 This is 67-year-old male patient with a known history of atrial fibrillation anticoagulated with Eliquis, chronic obstructive pulmonary disease, oxygen dependent respiratory failure, hyperlipidemia, hypertension, hypothyroidism, bipolar disorder, chronic and ongoing tobacco dependence, marijuana use. He was brought into the emergency room yesterday by family around noontime for increasing shortness of breath and chest wall pain. The patient had been falling approximately 3 times in the past 3 weeks. He was quite short of breath and dyspneic with exertion. He was originally being admitted to the regular medical floor when prior to his transfer from the emergency department he developed a cardiac arrest requiring approximately 5 minutes of CPR including 3 A of epinephrine and 2 units Amps of bicarb. He was also having some nonsustained VT and was given amiodarone bolus. He was intubated and transferred to the intensive care unit. He is seen today in consultation. He is currently on the mechanical ventilator in assist control mode at a rate of 24, tidal out of 450, FiO2 80% and a PEEP of 5. Morning blood gases revealed a PaO2 of 97, pCO2 67, pH 7.35 on the 80% FiO2. His x-ray reveals persistent large hiatal hernia. Persistent bibasilar opacities. Echocardiogram revealed left ventricular systolic function with ejection fraction 45-50%. Sputum culture pending. White count 13.9. Hemoglobin 16.2. Platelets 123. Sodium 138. Potassium 3.7. Bicarb 38. BUN 20. Creatinine 1.19. Glucose 136. He is sedated with propofol at 40 mcg/kg/m. Requiring norepinephrine at 4.3 mcg/m. He's initiated on bronchodilators, IV Solu-Medrol. Anticoagulated with Eliquis. NicoDerm patch in place. The patient is seen today 01/13/2023 in follow-up in the intensive care unit. He remains intubated on mechanical ventilator in assist control at a rate of 24, tidal volume 450, FiO2 50% and a PEEP of 5. Morning blood gases revealed a pO2 of 66, pCO2 52, pH 7.44. He is sedated on propofol 20 mcg/kg/m. Norepinephrine at 15 mcg/m. Lactated Ringer's at 75 ML's per hour. He is being nourished with vital 8. Her rate of 30 with a goal of 60. He did have some issues with atrial fibrillation and is currently in sinus rhythm. Chest x-ray revealed stable bibasilar atelectasis with a small left effusion. Endotracheal and gastric tube secured in place. Left internal CVP line in place. Sputum cultures pending. White count 17.9. Hemoglobin 16.2. Platelets 159. Sodium 136. Potassium 3.9. Bicarb 35. BUN 23. Creatinine 1.03. Glucose 146. ProBNP 1150. Troponin 0.016. He is currently in a +2.5 L balance. He is maintained on albuterol inhalations, Pulmicort and Perforomist inhalations, IV Solu-Medrol. NicoDerm patch in place. Anticoagulated with Eliquis. The patient is seen today 01/14/2023 in follow-up in the intensive care unit. He remains intubated and on the mechanical ventilator. Currently in assist control mode at a rate of 24, tidal and 450, FiO2 70% and a PEEP of 10. Morning blood gases revealed a P O2 of 68, pCO2 51, pH 7.45. He is sedated on propofol at 20 mcg/kg/m. Lactated Ringer's at 75 ML's per hour. Currently the norepinephrine is off. He is receiving vital HP at 60 ML's per hour which is goal for nutritional support. Chest x-ray reveals stable bibasilar atelectasis with a small left effusion. DT scan of the brain was negative. No mass effect or midline shift. No intracranial hemorrhage. Sputum culture pending. Pro-calcitonin 0.08. White count 15.6. Hemoglobin 15.1. Sodium 139. Potassium 4.3. Bicarb 30. BUN 30. Creatinine 1.07. Glucose 131. Currently in a +1.5 L balance. He remains on Pulmicort and Perforomist inhalations, albuterol inhalations, IV Solu-Medrol. NicoDerm patch in place. Anticoagulated with Eliquis. The patient is seen today 01/22/2023 in follow-up on the regular medical floor. He was subsequently extubated and transferred out of the ICU. He is currently awake and alert. Oriented times one. He is on 6 L high flow nasal cannula. Alternating with BiPAP 12/6 and 50% FiO2. His sputum was positive for Citrobacter koseri. Sodium 143. Potassium 4.1. Bicarb 28. BUN 48. Creat inine 1.0. He remains on amiodarone. Anticoagulated with Eliquis. Continued on bronchodilators. Continued on diuretics. Antibiotics in the form of Zosyn. NicoDerm patch in place. He is working with PT/OT. The plan is for subacute rehab at discharge. Objective - Vital Signs Vital signs: Vital Signs Temp 98.2 F 01/22/23 07:22 Pulse 72 01/22/23 10:02 Resp 22 01/22/23 07:22 BP 98/67 01/22/23 07:22 Pulse Ox 93 L 01/22/23 09:49 FiO2 50 01/22/23 04:00 Intake & Output 01/21/23 01/22/23 01/22/23 18:59 06:59 18:59 Intake Total 320 417 Output Total 100 950 300 Balance 220 -950 117 Intake: IV 20 .9NS 20 Intake, IV Titration 100 Amount Piperacillin-Tazobactam 3 100 .375 gm In Sodium Chloride 0.9% 100 ml @ 25 mls/hr IVPB Q8HR [facility] Rx# :[id number] Oral 200 417 Output: Urine 100 950 300 Other: Voiding Method Indwelling Catheter Indwelling Catheter Indwelling Catheter ABP, PAP, CO, CI - Last Documented Arterial Blood Pressure 130/75 - Exam GENERAL EXAM: Alert, oriented times one, 67-year-old male patient, on 6 L high flow nasal cannula, comfortable in no apparent distress. HEAD: Normocephalic. EYES: Normal reaction of pupils, equal size. NOSE: Clear with pink turbinates. THROAT: No erythema or exudates. NECK: No masses, no JVD. CHEST: No chest wall deformity. LUNGS: Equal air entry with few scattered rhonchi. CVS: S1 and S2 normal with no audible murmur, regular rhythm. ABDOMEN: No hepatosplenomegaly, normal bowel sounds, no guarding or rigidity. SPINE: No scoliosis or deformity SKIN: No rashes CENTRAL NERVOUS SYSTEM: Alert, tone is normal in all 4 extremities. EXTREMITIES: There is no peripheral edema. No clubbing, no cyanosis. Peripheral pulses are intact. - Labs CBC & Chem 7: 01/19/23 06:00 01/22/23 06:26 Labs: Abnormal Lab Results - Last 24 Hours (Table) 01/22/23 Range/Units 06:26 Chloride 110 H (98-107) mmol/L BUN 48 H (9-20) mg/dL Assessment and Plan Assessment: In-hospital cardiac arrest requiring CPR and subsequent return of spontaneous circulation within approximately 5 minutes. It is likely that this started off with a respiratory arrest and following that the patient had a cardiac arrest/asystole. The patient remains stable on oral amiodarone at a dose of 200 mg once a day. No further arrhythmias has been noted and the patient is currently hemodynamically stable. Acute hypoxemic respiratory failure secondary to above requiring intubation and mechanical ventilatory support on 01/11/2023 and subsequently extubated on 01/18/2023. Currently on 6 L high flow nasal cannula. Encephalopathy post cardiac arrest and the patient is improving, currently on no sedation, no focal neurological deficits and he is also communicating. CAT scan of the brain that was done on 01/13/2023 showed no acute abnormalities. The patient is fully alert and awake and communicating. He remains profoundly weak. Acute bilateral pneumonia with multifocal by the pulmonary infiltrate and the patient is currently on IV Zosyn. The sputum sample was positive for Citrobacter koseri Hypotension requiring pressor support, improved and off norepinephrine History of oxygen dependent chronic obstructive pulmonary disease Chronic and ongoing tobacco dependence Chronic atrial fibrillation, anticoagulated with Eliquis History of hypertension Hyperlipidemia Hypothyroidism History of bipolar disorder History of anxiety/depression History of marijuana use Plan: The patient was seen and evaluated Labs and medications reviewed Remains on Zosyn Wean down the FiO2 as tolerated Continue bronchodilators, prednisone NicoDerm patch in place Will most likely need subacute rehab at discharge We will continue to follow I have personally seen and examined the patient, performed the documentation and the assessment and plan as written. Number of minutes spent on the visit: 10.
[2023-01-22 13:32] VITALS: BMI 29.5
--- NOTE | 2023-01-22 13:51 | MR ---
EXAMINATION TYPE: MR brain/cspine wo DATE OF EXAM: 01/22/2023 COMPARISON: CT brain January 13, 2023. CT CAP January 11, 2023 HISTORY: Weakness. TECHNIQUE: Multiplanar, multisequence imaging of the brain and brainstem and cervical spine are perfo rmed without IV contrast. FINDINGS: Diffusion weighted images demonstrate no evidence of a recent infarct or other diffusion abnormality. There is mild ventricular and sulcal prominence redemonstrated. Some areas of T2 hyperintensity along the ventricles are seen bilaterally. Midline structures demonstrate normal morphology. The craniocervical junction appears within normal limits. Normal vascular flow voids are present. Increased fluid signal left greater than right bilate ral mastoid air cells. Visualized paranasal sinuses are clear. Globes are intact bilaterally. IMPRESSION: There is mild diffuse cerebral atrophy and mild to minimal chronic small vessel ischemic change. No MRI evidence for a recent infarct. C-SPINE: FINDINGS: Sagittal images of the cervical spine show the craniocervical junction to appear within nor mal limits. The cervical and upper thoracic spinal cord is normal in course, caliber, and signal. Th ere is slight grade 1 anterolisthesis C5 on C6. There is mild to moderate anterior height loss involv ing the T1 vertebra. There is mild height loss involving the superior T2 endplate. The bone marrow s ignal intensity is within normal limits. No suspicious edema seen to suggest acute or subacute fractu re. Axial images show C2-C3 level to appear within normal limits. Axial images at C3-C4 level show uncovertebral facet degenerative changes bilaterally causing mild le ft greater than right bilateral neural foraminal narrowing. Axial images at C4-C5 level appear within normal limits. Axial images at C5-C6 level shows broad-based posterior spur disc complex effacing anterior thecal sa c. Patent bilateral neural foramina. Axial images at C6-C7 and C7-T1 levels appear within normal limits. IMPRESSION: Mild to borderline moderate compression type fracture T1 level is presumed chronic in age . Spondylolisthesis and degenerative change C5-C6 level noted.
--- NOTE | 2023-01-22 14:21 | FL ---
Modified barium swallow. Consistencies administered: Thin, nectar, honey, puree, and cracker consistencies. Silent laryngeal penetration and tracheal aspiration with thin consistency. Vallecular retention with thin, nectar, and honey thick consistencies. Improvement with chin tuck technique with thin consiste ncy. Fluoro time: 1 minute 35 seconds No images were sent to PACS. Please see speech pathology report.
--- NOTE | 2023-01-22 17:08 | P.PN ---
Subjective Progress Note Date: 01/22/23 I am following up seeing the patient during this admission. I have seen patient last on 01/14/23, refer to Dr. Clement for further details. He is accompanied with his sisters and feel he is doing better the last couple days compared to prior. Objective - Vital Signs Vital signs: Vital Signs Temp 97.5 F L 01/22/23 13:03 Pulse 62 01/22/23 13:03 Resp 22 01/22/23 13:03 BP 110/76 01/22/23 13:03 Pulse Ox 97 01/22/23 13:03 FiO2 50 01/22/23 04:00 Intake & Output 01/21/23 01/22/23 01/22/23 18:59 06:59 18:59 Intake Total 320 777 Output Total 100 950 300 Balance 220 -950 477 Weight 107.4 kg Intake: IV 20 .9NS 20 Intake, IV Titration 100 Amount Piperacillin-Tazobactam 3 100 .375 gm In Sodium Chloride 0.9% 100 ml @ 25 mls/hr IVPB Q8HR [facility] Rx# :[id number] Oral 200 777 Output: Urine 100 950 300 Other: Voiding Method Indwelling Catheter Indwelling Catheter Indwelling Catheter ABP, PAP, CO, CI - Last Documented Arterial Blood Pressure 130/75 - Exam GENERAL: The patient is lying in bed and is not in acute distress. INTEGUMENTARY: Has edema of the right upper extremity. NEUROLOGICAL: Higher mental function: The patient is awake, alert, oriented to self, place and time. Patient is following simple commands. No aphasia and no neglect. Cranial nerves: The pupils are round, equal and reactive to light. Visual prabhakar are full to confrontation throughout. Extraocular movement is intact no nystagmus is noted. The facial strength is normal throughout. Tongue is midline and moved [id number] without any difficulty. No dysarthria is noted. Shoulder shrug is normal bilaterally. Motor: The strength is some weakness proximally extremities and distal (mostly ankles). Otherwise 5 over 5 throughout. Normal bulk. Decrease tone over the distal extremities mostly lowers. Sensation: Sensation is normal to touch throughout. Reflexes (right/left)1-2+ throughout. - Labs CBC & Chem 7: 01/19/23 06:00 01/22/23 06:26 Labs: Abnormal Lab Results - Last 24 Hours (Table) 01/22/23 Range/Units 06:26 Chloride 110 H (98-107) mmol/L BUN 48 H (9-20) mg/dL Assessment and Plan Assessment: This is a 67-year-old gentleman who presented because of the severe shortness of breath and dyspnea. In the emergency department he had cardiopulmonary arrest requiring CPR for 5 minutes. Status post Cardiopulmonary arrest Status post extubation. Altered mental status, likely due to hypoxic and metabolic encephalopathy. Patient's mentation much improving. Patient is following commands. EEG is negative for seizure activity. CT head is negative. Probable Seizure due to his cardiopulmonary arrest (reported had shaking of all extremities, unequal pupils and tongue bite)--resolved with 2mg Ativan Status post Cardiogenic shock Acute kidney injury--resolved History of Atrial fibrillation on eliquis History of possible stroke behind the left eye Hypertension Hyperlipidemia Hypothyroidism Nicotine dependence Plan: * Patient's mentation is improving. Patient still very weak proximally more than distally in the upper limbs, whereas he is weak distally and proximally in the lower limbs. Reflexes are present, therefore no evidence of Meghna Lisa. Perhaps critical illness myopathy. Family members feels he is improving strength webb compared to two days ago. * B12 554, folate 5.5, hemoglobin A1c 6.2, CK 54, B6, acetylcholine receptor antibodies pending. TSH is normal. Start folic acid replacement. * MRI of the brain: Is reported as there is mild diffuse cerebral atrophy and mild to minimal chronic small vessel ischemic change. No MRI evidence for a recent infarct. * MRI cervical spine is reported as mild to borderline moderate compression type fracture of T1 level is presumed chronic in age. Spondylolithiasis and degenerative changes C5-C6 level noted. * Consult Orthopedic team for compression fracture. * Recommend EMG with NCS as outpatient first lowers then uppers to rule out any myopathy. * Patient has never had any history of seizures. Keppra was discontinued (500mg bid). * Patient on Eliquis for atrial fibrillation. * 2-D echo revealed poor quality study with mild global decrease in contractility noted. EF is 45-50%. Grade 1 diastolic dysfunction. There is mild mitral annular calcification and aortic sclerosis. * We will defer the rest of the medical management to primary team The plan is discussed with patient and his sisters who are at bedside. No further additional work-up at this time. Maybe the patient would benefit from rehab. Time with Patient: Less than 30
[2023-01-22] MEDS: OLANZapine 10 MG TAB PO SCH (21:10)
[2023-01-22] MEDS: LATANOPROST 0.005% OPHTH DROPS 2.5 ML BTL LEFT EYE SCH (21:10)
[2023-01-23] MEDS: LEVOTHYROXINE 125 MCG TAB PO SCH (06:39)
[2023-01-23] MEDS: MIDODRINE 5 MG TAB PO SCH ×3 (06:39→17:40)
--- NOTE | 2023-01-23 08:51 | P.PN ---
Subjective Progress Note Date: 01/23/23 Principal diagnosis: Cardiopulmonary arrest The patient is a 67-year-old gentleman who we are asked to be seen in the intensive care unit for further cardiac evaluation. Currently the patient is intubated and he is on mechanical ventilation. The history was taken from the chart as well as from the nurse taking care of the patient. Apparently the patient presented to the emergency department with progressive dyspnea of unknown duration. He is known to have chronic obstructive pulmonary disease and also paroxysmal atrial fibrillation and cardiomyopathy. In the emergency department he was evaluated and during his stay he did have an episode of cardiopulmonary arrest with PEA. The downtime was about 5 minutes. Subsequently the patient was intubated and he was admitted to the intensive care unit. Currently he is on norepinephrine. He is in normal sinus mechanism. He was on flecainide. No indication that he was experiencing any symptoms of chest pain or chest discomfort before but he presented with increasing shortness of breath. He is known to have severe COPD and he is on oxygen at 3 L. The chest x-ray showed findings consistent with chronic disease/COPD. No troponin was performed. The rest of his discomfort overall appeared unremarkable. 01/13/2023 The patient was seen this morning. He continues to be intubated on mechanical ventilation. Currently there is a concern about an exit encephalopathy and he is in process computed tomography scan. He is now in sinus mechanism with sinus bradycardia. I'm going to DC amiodarone IV and start the patient on amiodarone by mouth 200 mg twice a day the Cardizem was stopped yesterday. Hold any antic oagulation at this point. Acute coronary syndrome was ruled out with 3 serial troponin came in to be unremarkable January 142022 The patient was seen this morning. He continues to be intubated on mechanical ventilation but he is off vasopressors was norepinephrine. Urine output has been better. He has been maintaining normal sinus mechanism and currently is currently on beta jazmin as well as he is on amiodarone and he is also on oral anticoagulation. He is also on flecainide. The last echo showed an EF between 45-50%. January 222022 The patient was seen and evaluated this morning. Overall he seems to be stable beside marginally low blood pressure and heart rate. The dose of beta jazmin yesterday and I'm going to decrease the dose of amiodarone and also decrease the dose of Lasix. He continues to be on oxygen at 2 L. On examination he does have diminished breathing sounds bilaterally and mild bilateral expiratory wheezing but no lower extremities edema noted. He is on anticoagulation for the atrial fibrillation. 01/23/2023 The patient was seen this morning. He remains hypoxic requiring high flow oxygen. Urine output has been low. On examination he does have diminished breathing sounds bilaterally. I am going to increase the dose of Lasix from 20 mg by mouth daily to 40 mg by mouth daily. His pressure has been within normal limits. On examination he does have diminished breathing sounds bilaterally with bilateral and mostly on the right hand edema. Assessment Cardiopulmonary arrest with PEA Known severe COPD/chronic hypoxic respiratory failure Paroxysmal atrial fibrillation Plan Continue the current medical regimen Decrease the dose of amiodarone Increase the dose of oral diuretics was Lasix Continue oral anticoagulation Follow-up with the patient Objective - Vital Signs Vital signs: Vital Signs Temp 98.4 F 01/23/23 02:00 Pulse 57 L 01/23/23 06:38 Resp 16 01/23/23 02:00 BP 120/82 01/23/23 06:38 Pulse Ox 99 01/23/23 02:00 FiO2 50 01/23/23 04:01 Intake & Output 01/22/23 01/23/23 01/23/23 18:59 06:59 18:59 Intake Total 777 Output Total 300 950 Balance 477 -950 Weight 107.4 kg Intake: Oral 777 Output: Urine 300 950 Other: Voiding Method Indwelling Catheter Indwelling Catheter # Bowel Movements 1 ABP, PAP, CO, CI - Last Documented Arterial Blood Pressure 130/75 - Labs CBC & Chem 7: 01/19/23 06:00 01/22/23 06:26
[2023-01-23] MEDS: METOPROLOL TARTRATE 50 MG TAB PO SCH ×2 (08:53→20:29)
[2023-01-23] MEDS: GABAPENTIN 100 MG CAP PO SCH ×3 (08:56→23:24)
[2023-01-23] MEDS: SENNOSIDES-DOCUSATE SODIUM 1 EACH TAB PO SCH ×2 (08:57→20:29)
[2023-01-23] MEDS: ASPIRIN 81 MG PO SCH (08:57)
[2023-01-23] MEDS: predniSONE 20 MG TAB PO SCH (08:58)
[2023-01-23] MEDS: PANTOPRAZOLE 40 MG TABLET PO SCH (08:58)
[2023-01-23] MEDS: APIXABAN 5 MG TAB PO SCH ×2 (08:58→20:30)
[2023-01-23] MEDS: AMIODARONE 100 MG TAB PO SCH ×2 (08:58→20:30)
[2023-01-23] MEDS: PIPERACILLIN-TAZOBACTAM 3.375 GM in SODIUM CHLORIDE 0.9% 100 ML IVPB SCH ×3 (08:59→23:25)
[2023-01-23] MEDS: NICOTINE 21MG/24HR PATCH TRANSDERM SCH (08:59)
[2023-01-23] MEDS: ALBUTEROL HFA INHALER INHALATION SCH ×4 (09:04→20:47)
[2023-01-23] MEDS: TIOTROPIUM 2.5 MCG INHALER INHALATION SCH (09:06)
[2023-01-23] MEDS: FORMOTEROL FUMARATE 20 MCG/2 ML NEBU INHALATION SCH ×2 (09:06→20:48)
[2023-01-23] MEDS: BUDESONIDE 1 MG/2 ML NEBU INHALATION SCH ×2 (09:06→20:48)
[2023-01-23] MEDS: FUROSEMIDE 20 MG TAB PO SCH (09:08)
[2023-01-23] MEDS: FUROSEMIDE 40 MG TAB PO SCH (09:10)
--- NOTE | 2023-01-23 09:16 | P.CNOR ---
History of Present Illness - [facility] Consult date: 01/23/23 Requesting physician: Chuy Steve Consult reason: other (T12 compression fracture) History of present illness: History of Presenting Illness Patient is a pleasant 67-year-old male that was brought into the emergency room on 01/11/23 by family for increasing shortness of breath and chest wall pain. The patient has had approximately 3 falls in the past 4 weeks. He was quite short of breath and dyspneic with exertion. He was originally being admitted to the regular medical floor when prior to his transfer from the emergency department he developed a cardiac arrest requiring approximately 5 minutes of CPR. He was also having some nonsustained VT and was given amiodarone bolus. Patient does have a medical history of atrial fibrillation, COPD, severe CHF, and is a smoker. Our services were consult due to a compression fracture of the cervical spine. Patient is a poor historian and is unable to provide his history or events. Patient denies any trauma. Patient denies any other orthopedic history. Patient is currently resting comfortably in bed with BiPAP in place. Patient denies any cervical pain. He denies any numbness tingling to bilateral upper extremities. He does report weakness into bilateral upper and lower extremiti es. Patient does report improvement in his symptoms since admission. Patient does acknowledge that he has a T1 compression fracture, but is unaware of any event. Patient does present with bilateral upper and lower extremity edema. Right upper extremity is elevated on pillow. Shook catheter is present and patent. He does report that he is looking forward to working with physical therapy today. Patient has been afebrile, denies nausea/vomiting, or chest pain. Review of Systems Pertinent positives and negatives as discussed in HPI, a complete review of systems was performed and all other systems are negative. Physical Examination General: The patient is awake and alert, in no acute distress Skin: Skin is warm and dry with no obvious rashes or lesions. Eye: Pupils are equal, round and reactive to light, extra-ocular movements are intact; there is normal conjunctiva bilaterally. Neck: The neck is supple, there is no tenderness and ROM intact. Cardiovascular: There is a regular rate and rhythm. No murmur, rub or gallop is appreciated. Respiratory: Diminished breath sounds, requiring high flow O2 Gastrointestinal: Soft, non-distended, non-tender abdomen. Back: There is no tenderness to palpation in the midline, paralumbar, parathoracic or buttocks region. There is no obvious deformity. Musculoskeletal: ROM is limited in bilateral upper extremities due to weakness and stiffness. LUE 4-/5 in all major muscle groups, RUE 3+/5, BLE 4/5. Neurological: CN 2-12 intact. There are no obvious motor or sensory deficits. Movement and coordination equal and intact. Sensory exam to light touch intact C5-T1 and intact from L2-S1. Reflexes 2/4 in bilateral upper and lower extremities. Negative Hoffmans, babinski, and clonus signs. Psychiatric: Cooperative, appropriate mood & affect, normal judgment. Assessment and Plan MRI of the Cervical spine demonstrates mild to borderline moderate compression type fracture T1 level is presumed chronic in age. Spondylolisthesis and degenerative change C5-C6 level noted. T1 chronic compression fracture Cervical spondylosis Grade 1 anterolisthesis of C5 and C6 Bilateral upper extremity weakness Multiple comorbidities -At this time we do not recommend any emergent/urgent orthopedic surgical intervention. 2. Appreciate medical management 3. Continue with pain management, may benefit from a trial of steroid. 4. PT/OT - weightbearing as tolerated with a walker as needed. 5. Appreciate consult Patient may follow-up with Dr. Sheets office for further evaluation as needed. No further recommendations at this time. Please do not hesitate to contact us for any further questions. I reviewed and discussed this case with my attending Dr. Sheets, whom has reviewed this chart and films and is in agreement with assessment and plan of care as outlined above. I have personally seen and examined the patient, performed the documentation and the assessment and plan as written. Number of minutes spent on the visit: 20m. Past Medical History Past Medical History: Atrial Fibrillation, COPD, Eye Disorder, Hyperlipidemia, Hypertension, Osteoarthritis (OA), Thyroid Disorder Additional Past Medical History / Comment(s): Sober for 10 years, hiatal hernia, glaucoma left eye, possible stroke behind left eye per opthamologist. 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 History of Any Multi-Drug Resistant Organisms: None Reported Additional Past Surgical History / Comment(s): HYDROCELE surg. x2, hemorrhoidectomy, colonoscopy, cataract surgery Past Anesthesia/Blood Transfusion Reactions: No Reported Reaction Additional Past Anesthesia/Blood Transfusion Reaction / Comm: no blood transfusions Past Psychological History: Anxiety, Bipolar, Panic Disorder Smoking Status: Current every day smoker Past Alcohol Use History: None Reported Past Drug Use History: Marijuana - Past Family History Mother Family Medical History: Diabetes Mellitus Father Family Medical History: Coronary Artery Disease (CAD) Sister(s) Family Medical History: Coronary Artery Disease (CAD), Diabetes Mellitus, Hypertension Medications and Allergies Home Medications Medication Instructions Recorded Confirmed Type Latanoprost/Pf [Latanoprost 0.005% 1 drop LEFT EYE HS 08/18/20 01/11/23 History Eye Drop] Levothyroxine Sodium 125 mcg PO DAILY 08/18/20 01/11/23 History Albuterol Sulfate [Albuterol 1 puff PO RT-Q4H PRN 04/01/22 01/11/23 History Sulfate Hfa] Apixaban [Eliquis] 5 mg PO BID 04/01/22 01/11/23 History Aspirin EC [Ecotrin Low Dose] 81 mg PO DAILY 04/01/22 01/11/23 History Gabapentin [Neurontin] 200 mg PO TID 04/01/22 01/11/23 History Loratadine [Claritin] 10 mg PO DAILY 04/01/22 01/11/23 History Metoprolol Tartrate [Lopressor] 75 mg PO BID 30 Days #60 tab 12/22/22 01/11/23 Rx Albuterol Nebulized [Ventolin 3 ml INHALATION RT-Q6H 01/11/23 01/11/23 History Nebulized (Accuneb)] Flecainide [Tambocor] 50 mg PO BID 01/11/23 01/11/23 History Fluticasone/Vilanterol [Breo 1 puff INHALATION RT-DAILY 01/11/23 01/11/23 History Ellipta 200-25 Mcg Inhaler] Furosemide [Lasix] 80 mg PO DAILY 01/11/23 01/11/23 History Minocycline [Minocin] 50 mg PO Q12HR 01/11/23 01/11/23 History OLANZapine [ZyPREXA] 20 mg PO HS 01/11/23 01/11/23 History PARoxetine HCL [Paxil] 30 mg PO HS 01/11/23 01/11/23 History Pantoprazole Sodium [Protonix] 40 mg PO DAILY 01/11/23 01/11/23 History Tiotropium [place] [Spiriva] 1 puff INHALATION RT-DAILY 01/11/23 01/11/23 History Allergies Allergy/AdvReac Type Severity Reaction Status Date / Time No Known Allergies Allergy Verified 01/11/23 14:49 Results - Labs Labs: H & H 01/11/23 01/11/23 01/11/23 Range/Units 12:26 17:43 22:30 Hgb 16.0 16.4 17.2 (13.0-17.5) gm/dL Hct 48.5 51.4 53.9 H (39.0-53.0) % 01/12/23 01/13/23 01/14/23 Range/Units 05:21 04:45 04:40 Hgb 16.2 16.2 15.1 (13.0-17.5) gm/dL Hct 50.1 50.1 48.1 (39.0-53.0) % 01/15/23 01/16/23 01/17/23 Range/Units 05:00 04:10 04:50 Hgb 14.9 15.1 14.9 (13.0-17.5) gm/dL Hct 47.0 50.1 48.9 (39.0-53.0) % 01/18/23 01/19/23 Range/Units 04:30 06:00 Hgb 15.5 15.9 (13.0-17.5) gm/dL Hct 50.1 52.2 (39.0-53.0) % Coagulation 01/11/23 Range/Units 12:26 INR 1.4 H (<1.2) Result Diagrams: 01/19/23 06:00 01/22/23 06:26
--- NOTE | 2023-01-23 13:01 | P.PN ---
Subjective Progress Note Date: 01/23/23 This is 67-year-old male patient with a known history of atrial fibrillation anticoagulated with Eliquis, chronic obstructive pulmonary disease, oxygen dependent respiratory failure, hyperlipidemia, hypertension, hypothyroidism, bipolar disorder, chronic and ongoing tobacco dependence, marijuana use. He was brought into the emergency room yesterday by family around noontime for increasing shortness of breath and chest wall pain. The patient had been falling approximately 3 times in the past 3 weeks. He was quite short of breath and dyspneic with exertion. He was originally being admitted to the regular medical floor when prior to his transfer from the emergency department he developed a cardiac arrest requiring approximately 5 minutes of CPR including 3 A of epinephrine and 2 units Amps of bicarb. He was also having some nonsustained VT and was given amiodarone bolus. He was intubated and transferred to the intensive care unit. He is seen today in consultation. He is currently on the mechanical ventilator in assist control mode at a rate of 24, tidal out of 450, FiO2 80% and a PEEP of 5. Morning blood gases revealed a PaO2 of 97, pCO2 67, pH 7.35 on the 80% FiO2. His x-ray reveals persistent large hiatal hernia. Persistent bibasilar opacities. Echocardiogram revealed left ventricular systolic function with ejection fraction 45-50%. Sputum culture pending. White count 13.9. Hemoglobin 16.2. Platelets 123. Sodium 138. Potassium 3.7. Bicarb 38. BUN 20. Creatinine 1.19. Glucose 136. He is sedated with propofol at 40 mcg/kg/m. Requiring norepinephrine at 4.3 mcg/m. He's initiated on bronchodilators, IV Solu-Medrol. Anticoagulated with Eliquis. NicoDerm patch in place. The patient is seen today 01/13/2023 in follow-up in the intensive care unit. He remains intubated on mechanical ventilator in assist control at a rate of 24, tidal volume 450, FiO2 50% and a PEEP of 5. Morning blood gases revealed a pO2 of 66, pCO2 52, pH 7.44. He is sedated on propofol 20 mcg/kg/m. Norepinephrine at 15 mcg/m. Lactated Ringer's at 75 ML's per hour. He is being nourished with vital 8. Her rate of 30 with a goal of 60. He did have some issues with atrial fibrillation and is currently in sinus rhythm. Chest x-ray revealed stable bibasilar atelectasis with a small left effusion. Endotracheal and gastric tube secured in place. Left internal CVP line in place. Sputum cultures pending. White count 17.9. Hemoglobin 16.2. Platelets 159. Sodium 136. Potassium 3.9. Bicarb 35. BUN 23. Creatinine 1.03. Glucose 146. ProBNP 1150. Troponin 0.016. He is currently in a +2.5 L balance. He is maintained on albuterol inhalations, Pulmicort and Perforomist inhalations, IV Solu-Medrol. NicoDerm patch in place. Anticoagulated with Eliquis. The patient is seen today 01/14/2023 in follow-up in the intensive care unit. He remains intubated and on the mechanical ventilator. Currently in assist control mode at a rate of 24, tidal and 450, FiO2 70% and a PEEP of 10. Morning blood gases revealed a P O2 of 68, pCO2 51, pH 7.45. He is sedated on propofol at 20 mcg/kg/m. Lactated Ringer's at 75 ML's per hour. Currently the norepinephrine is off. He is receiving vital HP at 60 ML's per hour which is goal for nutritional support. Chest x-ray reveals stable bibasilar atelectasis with a small left effusion. DT scan of the brain was negative. No mass effect or midline shift. No intracranial hemorrhage. Sputum culture pending. Pro-calcitonin 0.08. White count 15.6. Hemoglobin 15.1. Sodium 139. Potassium 4.3. Bicarb 30. BUN 30. Creatinine 1.07. Glucose 131. Currently in a +1.5 L balance. He remains on Pulmicort and Perforomist inhalations, albuterol inhalations, IV Solu-Medrol. NicoDerm patch in place. Anticoagulated with Eliquis. The patient is seen today 01/22/2023 in follow-up on the regular medical floor. He was subsequently extubated and transferred out of the ICU. He is currently awake and alert. Oriented times one. He is on 6 L high flow nasal cannula. Alternating with BiPAP 12/6 and 50% FiO2. His sputum was positive for Citrobacter koseri. Sodium 143. Potassium 4.1. Bicarb 28. BUN 48. Creat inine 1.0. He remains on amiodarone. Anticoagulated with Eliquis. Continued on bronchodilators. Continued on diuretics. Antibiotics in the form of Zosyn. NicoDerm patch in place. He is working with PT/OT. The plan is for subacute rehab at discharge. The patient is seen today 01/23/2023 in follow-up on the regular medical floor. He is sitting up in bed. Awake and alert in no acute distress. He is tolerating his meals well. Currently maintaining O2 saturations in the upper 90s on 5 L high flow nasal cannula. MRI of the brain revealed mild diffuse cerebral atrophy and mild to minimal chronic small vessel ischemic change. No MRI evidence of recent infarct. Mild to borderline moderate compression type fracture T1 level is presumed chronic and age. Spondylolisthesis and degenera tive changes C5 through C6. He is continued on bronchodilators, antibiotics in the form of Zosyn. Anticoagulated with Eliquis. NicoDerm patch in place. Objective - Vital Signs Vital signs: Vital Signs Temp 96.3 F L 01/23/23 07:48 Pulse 78 01/23/23 09:29 Resp 22 01/23/23 08:30 BP 114/81 01/23/23 07:48 Pulse Ox 97 01/23/23 09:10 FiO2 50 01/23/23 12:17 Intake & Output 01/22/23 01/23/23 01/23/23 18:59 06:59 18:59 Intake Total 777 540 Output Total 300 950 Balance 477 -950 540 Weight 107.4 kg Intake: Oral 777 540 Output: Urine 300 950 Other: Voiding Method Indwelling Catheter Indwelling Catheter Indwelling Catheter # Bowel Movements 1 ABP, PAP, CO, CI - Last Documented Arterial Blood Pressure 130/75 - Exam GENERAL EXAM: Alert, oriented, 67-year-old male patient, on 5 L high flow nasal cannula, comfortable in no apparent distress. HEAD: Normocephalic. EYES: Normal reaction of pupils, equal size. NOSE: Clear with pink turbinates. THROAT: No erythema or exudates. NECK: No masses, no JVD. CHEST: No chest wall deformity. LUNGS: Equal air entry with few scattered rhonchi. CVS: S1 and S2 normal with no audible murmur, regular rhythm. ABDOMEN: No hepatosplenomegaly, normal bowel sounds, no guarding or rigidity. SPINE: No scoliosis or deformity SKIN: No rashes CENTRAL NERVOUS SYSTEM: Alert, tone is normal in all 4 extremities. EXTREMITIES: There is no peripheral edema. No clubbing, no cyanosis. Peripheral pulses are intact. - Labs CBC & Chem 7: 01/19/23 06:00 01/22/23 06:26 Assessment and Plan Assessment: In-hospital cardiac arrest requiring CPR and subsequent return of spontaneous circulation within approximately 5 minutes. It is likely that this started off with a respiratory arrest and following that the patient had a cardiac arrest/asystole. The patient remains stable on oral amiodarone at a dose of 200 mg once a day. No further arrhythmias has been noted and the patient is currently hemodynamically stable. Acute hypoxemic respiratory failure secondary to above requiring intubation and mechanical ventilatory support on 01/11/2023 and subsequently extubated on 01/18/2023. Currently on 5 L high flow nasal cannula. Encephalopathy post cardiac arrest and the patient is improving, currently on no sedation, no focal neurological deficits and he is also communicating. CAT scan of the brain that was done on 01/13/2023 showed no acute abnormalities. The patient is fully alert and awake and communicating. He remains profoundly weak. Acute bilateral pneumonia with multifocal by the pulmonary infiltrate and the patient is currently on IV Zosyn. The sputum sample was positive for Citrobacter koseri Hypotension requiring pressor support, improved and off norepinephrine History of oxygen dependent chronic obstructive pulmonary disease Chronic and ongoing tobacco dependence Chronic atrial fibrillation, anticoagulated with Eliquis History of hypertension Hyperlipidemia Hypothyroidism History of bipolar disorder History of anxiety/depression History of marijuana use Plan: The patient was seen and evaluated Medications reviewed Remains on Zosyn Continue bronchodilators, prednisone Wean down the FiO2 as tolerated We will continue to follow I have personally seen and examined the patient, performed the documentation and the assessment and plan as written. Number of minutes spent on the visit: 10.
--- NOTE | 2023-01-23 17:46 | P.PN ---
Progress Note - Text Progress Note Date: 01/23/23 Chief Complaint: Shortness of breath, chest pain This is a 67-year-old patient who follows with Dr. Alvin Vlilela. Chronic stable medical conditions include hyperlipidemia, hypothyroid, bipolar, atrial fibrillation. Patient is a smoker. COPD, CHF, bipolar, hiatal hernia Patient presented to the ER, brought in by the family because of shortness of breath and chest pain. In the last 3 weeks apparently patient fallen about 3 times. No fever no chills. Some palpitations. Increasing lower extremity edema. Nonproductive cough. Late in the afternoon patient was found to be in PEA. Code team was called. Patient did require epinephrine. intubated. FiO2 100 and PEEP of 5. Patient have a broad complex tachycardia. Discharge Coordinator Dr. Steve was informed. Admitted with acute COPD exacerbation, acute CHF exacerbation, acute hypoxic hypercapnic respiratory failure. Intubated. 01/12/2023: ICU. Drips include IV propofol, Levophed. Patient sedated. Telemetry shows sinus rhythm. FiO2 70 to PEEP of 5. Patient seen by digester Dr. Valdes. IV Lasix has been discontinued. IV fluids. 01/13/2023: ICU. Intubated. FiO2 70 PEEP of 10. Drips include propofol and norepinephrine. 2 feeding at 40 mL an hour. Patient went into A. fib with rapid ventricle rate yesterday. Was put on IV Cardizem and IV amiodarone. Went back into sinus rhythm. There was some concern about neuro status change for which neurology was consulted, pending computed tomography scan. No focal weakness. His started on IV Keppra per neurology 01/14/2023: ICU. Intubated. FiO2 70 PEEP of 10. Patient is off levo fed since this morning. On IV propofol. OG tube for feeding at 60 mL an hour. Significant secretions checks x-ray showing infiltrate. His started on IV Zosyn. and daughter the bedside. Discussed. Eliquis. Cordarone. IV Solu-Medrol. IV Keppra. 01/15/2023: ICU. Intubated. FiO2 70 PEEP of 10. 2 feeding. Telemetry sinus rhythm. OG tube feeding. Patient has remained off levo fed. IV Zosyn. IV Keppra. 01/16/2023: ICU. Intubated. FiO2 50 PEEP of 7. Sinus rhythm. Sedation holiday today. Getting 2 feeding. 01/17/2023: ICU. Intubated. FiO2 50 PEEP of 7. OG tube feeding. At 30 mL an hour. Sinus rhythm. Oral amiodarone. Eliquis. IV Lasix 20 mg every 12. IV Keppra. IV Zosyn. Remains off levo fed. Off propofol. 01/18/2023: ICU. Patient extubated this morning. Currently on 12 L. Lethargic but following commands. Sinus rhythm. at the bedside. Congested cough. IV Keppra. IV Zosyn. IV Lasix 01/19/2023: ICU. Patient on Ventimask at 6 L.. Diet. Sinus rhythm. Weak in all the limbs. PTOT consulted. 01/20/2023 Patient remains in the ICU very weak and confused, patient today he did not answer questions and he does not follow commands he opens eyes spontaneously before go back to sleep, he was still on CPAP machine. Also he was very short of breath which limits his ability to communicate. Hemodynamically and labs are stable. He has Shook catheter in He remains on Zosyn, prednisone 20 mg, home dose of Eliquis, aspirin 81 mg, Keppra, oral Lasix 40 mg daily and oral amiodarone 200 mg 01/21/2023 Patient today is more awake and interactive but very weak and lethargic, he can hardly move his extremities: Without dyspnea secondary to his critical care myopathy, at the same time his blood pressure on the low side and is on several medications including Keppra. As reported patient with known history of seizure prior to admission and Keppra dose was lowered 750 milligrams down to 500 mg twice a day. Blood pressure was on the low site 90/60 and he is on metoprolol with dose was lowered 50 mg from 75 mg twice a day. his blood pressure into 81/60, discussed with staff for close monitoring. Shook catheter was discontinued, bladder scan was checked was 270 mm Patient remains on Zosyn, prednisone 20 mg and Eliquis, Aspirin 81. Patient was transferred to the general medical floor today 01/23/2023: I resumed the care of the patient today from [facility]. Sitting up in bed. Feeling better. Slight cough. On 5 L nasal cannula. Eating close to 100%. Spoke to family caseworker. Looking at ECF washes and authorization. Patient is requiring maximum/2 people assist. For stand up and go to the chair. Incentive spirometry ordered. Active Medications Acetaminophen (Acetaminophen Tab 325 Mg Tab) 650 mg PO Q4HR PRN PRN Reason: Mild Pain or Fever > 100.5 Albuterol Sulfate (Albuterol Hfa Inhaler) 2 puff INHALATION RT-QID [facility] Last Admin: 01/23/23 15:17 Dose: 2 puff Amiodarone HCl (Amiodarone 100 Mg Tab) 100 mg PO BID [facility] Last Admin: 01/23/23 08:58 Dose: 100 mg Apixaban (Apixaban 5 Mg Tab) 5 mg PO BID [facility]; Protocol Last Admin: 01/23/23 08:58 Dose: 5 mg Aspirin (Aspirin 81 Mg) 81 mg PO DAILY [facility] Last Admin: 01/23/23 08:57 Dose: 81 mg Bisacodyl (Bisacodyl 10 Mg Supp) 10 mg RECTAL DAILY PRN PRN Reason: Constipation Last Admin: 01/19/23 18:54 Dose: 10 mg Budesonide (Budesonide 1 Mg/2 Ml Nebu) 1 mg INHALATION RT-BID [facility] Last Admin: 01/23/23 09:06 Dose: 1 mg Formoterol Fumarate (Formoterol Fumarate 20 Mcg/2 Ml Nebu) 20 mcg INHALATION RT-BID [facility] Last Admin: 01/23/23 09:06 Dose: 20 mcg Furosemide (Furosemide 40 Mg Tab) 40 mg PO DAILY [facility] Last Admin: 01/23/23 09:10 Dose: 40 mg Gabapentin (Gabapentin 100 Mg Cap) 200 mg PO TID [facility] Last Admin: 01/23/23 17:39 Dose: 200 mg Piperacillin Sod/Tazobactam (Sod 3.375 gm/ Sodium Chloride) 100 mls @ 25 mls/hr IVPB Q8HR [facility]; Protocol Last Admin: 01/23/23 17:40 Dose: 25 mls/hr Latanoprost (Latanoprost 0.005% Ophth Drops 2.5 Ml Btl) 1 drops LEFT EYE HS [facility] Last Admin: 01/22/23 21:10 Dose: 1 drops Levothyroxine Sodium (Levothyroxine 125 Mcg Tab) 125 mcg PO DAILY@0630 [facility] Last Admin: 01/23/23 06:39 Dose: 125 mcg Lisinopril (Lisinopril 2.5 Mg Tab) 2.5 mg PO BID [facility] Last Admin: 01/23/23 08:57 Dose: 2.5 mg Metoprolol Tartrate (Metoprolol Tartrate 50 Mg Tab) 50 mg PO BID [facility] Last Admin: 01/23/23 08:53 Dose: Not Given Midodrine (Midodrine 5 Mg Tab) 5 mg PO AC-TID [facility] Last Admin: 01/23/23 17:40 Dose: 5 mg Miscellaneous Information (Potassium Replacement Protocol 1 Each Misc) 1 each MISCELLANE DAILY PRN; Protocol PRN Reason: Per Protocol Naloxone HCl (Naloxone 0.4 Mg/Ml 1 Ml Vial) 0.2 mg IVP Q2M PRN PRN Reason: Opioid Reversal Nicotine (Nicotine 21mg/24hr Patch) 1 patch TRANSDERM DAILY [facility] Last Admin: 01/23/23 08:59 Dose: 1 patch Olanzapine (Olanzapine 10 Mg Tab) 20 mg PO HS [facility] Last Admin: 01/22/23 21:10 Dose: 20 mg Pantoprazole Sodium (Pantoprazole 40 Mg Tablet) 40 mg PO DAILY [facility] Last Admin: 01/23/23 08:58 Dose: 40 mg Prednisone (Prednisone 20 Mg Tab) 20 mg PO DAILY [facility] Last Admin: 01/23/23 08:58 Dose: 20 mg Senna/Docusate Sodium (Sennosides-Docusate Sodium 1 Each Tab) 2 each PO BID [facility] Last Admin: 01/23/23 08:57 Dose: 2 each Tiotropium [place] (Tiotropium 2.5 Mcg Inhaler) 2 puff INHALATION RT-DAILY [facility] Last Admin: 01/23/23 09:06 Dose: 2 puff Past medical history to include: COPD, hyperlipidemia, hypothyroid, bipolar, atrial fibrillation, bipolar, CHF, he had hernia Social history: Lives with sister Marifer, smokes a pack a day for many years, no alcohol Physical examination: VITAL SIGNS: 97.5, 76, 20, 92 was 62, 95% on 5 L GENERAL: Reclining, comfortable EYES: Pupils equal. Conjunctiva normal. HEENT: External appearance of nose and ears normal, oral cavity grossly normal. NECK: JVD is able to assess; masses not palpable. HEART: First and second heart sounds are normal; edema present LUNGS: Respiratory rate increased; decreased breath sounds , coarse breath soun ds ABDOMEN: Soft, nontender, liver spleen not palpable, no masses palpable. PSYCH: Answering questions appropriately. MUSCULOSKELETAL:No Clubbing/cyanosis;muscles-grossly intact. Evidence of OA INVESTIGATIONS, reviewed in the clinical context: 01/23/2023: Potassium 4.1 creatinine 1 01/19/2023: White count 10.8 hemoglobin 15.9 platelets 152 Sputum culture: Citrobacter koseri EEG: Encephalopathy. No seizure activity. 01/13/2023: White count 7.19 globin 16.2 potassium 3.9 BUN 23 creatinine 1.03 troponin I 0.016 proBNP 1150 2-D echocardiogram: EF 45-50%. Right ventricle dilatation, right ventricular hypertrophy 01/12/2023: White count 13.9 hemoglobin 16.2 platelets 123 potassium 3.7 creatinine 1.19 cortisol 22 TSH 0.548 White count 10.6 hemoglobin 16.4 platelets 153 potassium 3.1 BUN 24 creatinine 1.4 to AST 79 ALT 65 Procalcitonin 0.08 ABG: PH 7.18 pCO2 102 pO2 153 EKG tracing personally reviewed by me-normal sinus rhythm. Intraventricular block. Poor R-wave progression. Chest x-ray film personally reviewed by me-large hiatal hernia. Cardiomegaly. Venous prominence. Assessment and plan: -Acute hypoxic and hypercapnic respiratory failure secondary to COPD exacerbation and CHF exacerbation: Improving Was on ventilator assist. Extubated January 18. Currently 5 L nasal cannula -Paroxysmal atrial fibrillation flutter, had an episode of rapid rate - Back in sinus rhythm Telemetry. Eliquis 5 mg twice a day. Lopressor 50 mg twice a day flecainide- discontinued. Cordarone. -Possible seizure due to cardiac arrest.. Keppra history started and discontinued.. EEG negative for seizure activity -Critical care myopathy.: Passive exercises. PTOT. -Possible aspiration pneumonia, culture positive for Citrobacter koseri IV Zosyn-completed course -Acute COPD exacerbation in a current smoker Albuterol 4 times a day.. Prednisone 20 mg. Nebulized Perforomist and Pulmicort, Spiriva. -Acute on Chronic congestive heart failure from systolic dysfunction EF 45-50%-better Lasix 80 mg daily -Hypothyroid Levothyroxine 125 g a day -Essential hypertension . Lopressor 50 mg twice a day -Cardiogenic shock: Better Taken off off levo fed -OG tube feeding-discontinued -Chronic nicotine dependence, cigarette smoker Nicotine patch -Bipolar disorder Zyprexa 20 mg daily at bedtime. -Dysphagia. Being followed by speech therapist Levels 3 chopped diet. Neck to thick liquids. Wants to one supervision. -Full code Continue current medication treatment plan. 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 Looking for probable discharge tomorrow. Rehab.
[2023-01-23] MEDS: OLANZapine 10 MG TAB PO SCH (20:29)
[2023-01-23] MEDS: LATANOPROST 0.005% OPHTH DROPS 2.5 ML BTL LEFT EYE SCH (20:31)
[2023-01-24] MEDS: MIDODRINE 5 MG TAB PO SCH ×3 (06:49→16:33)
[2023-01-24] MEDS: LEVOTHYROXINE 125 MCG TAB PO SCH (06:49)
--- NOTE | 2023-01-24 07:43 | P.PN ---
Subjective Progress Note Date: 01/24/23 Principal diagnosis: Cardiopulmonary arrest The patient is a 67-year-old gentleman who we are asked to be seen in the intensive care unit for further cardiac evaluation. Currently the patient is intubated and he is on mechanical ventilation. The history was taken from the chart as well as from the nurse taking care of the patient. Apparently the patient presented to the emergency department with progressive dyspnea of unknown duration. He is known to have chronic obstructive pulmonary disease and also paroxysmal atrial fibrillation and cardiomyopathy. In the emergency department he was evaluated and during his stay he did have an episode of cardiopulmonary arrest with PEA. The downtime was about 5 minutes. Subsequently the patient was intubated and he was admitted to the intensive care unit. Currently he is on norepinephrine. He is in normal sinus mechanism. He was on flecainide. No indication that he was experiencing any symptoms of chest pain or chest discomfort before but he presented with increasing shortness of breath. He is known to have severe COPD and he is on oxygen at 3 L. The chest x-ray showed findings consistent with chronic disease/COPD. No troponin was performed. The rest of his discomfort overall appeared unremarkable. 01/13/2023 The patient was seen this morning. He continues to be intubated on mechanical ventilation. Currently there is a concern about an exit encephalopathy and he is in process computed tomography scan. He is now in sinus mechanism with sinus bradycardia. I'm going to DC amiodarone IV and start the patient on amiodarone by mouth 200 mg twice a day the Cardizem was stopped yesterday. Hold any antic oagulation at this point. Acute coronary syndrome was ruled out with 3 serial troponin came in to be unremarkable January 142022 The patient was seen this morning. He continues to be intubated on mechanical ventilation but he is off vasopressors was norepinephrine. Urine output has been better. He has been maintaining normal sinus mechanism and currently is currently on beta jazmin as well as he is on amiodarone and he is also on oral anticoagulation. He is also on flecainide. The last echo showed an EF between 45-50%. January 222022 The patient was seen and evaluated this morning. Overall he seems to be stable beside marginally low blood pressure and heart rate. The dose of beta jazmin yesterday and I'm going to decrease the dose of amiodarone and also decrease the dose of Lasix. He continues to be on oxygen at 2 L. On examination he does have diminished breathing sounds bilaterally and mild bilateral expiratory wheezing but no lower extremities edema noted. He is on anticoagulation for the atrial fibrillation. 01/23/2023 The patient was seen this morning. He remains hypoxic requiring high flow oxygen. Urine output has been low. On examination he does have diminished breathing sounds bilaterally. I am going to increase the dose of Lasix from 20 mg by mouth daily to 40 mg by mouth daily. His pressure has been within normal limits. On examination he does have diminished breathing sounds bilaterally with bilateral and mostly on the right hand edema. January 242022 The patient was seen and evaluated this morning. He remains stable overall from the cardiac standpoint overview. He continues to be on 6 L oxygen. Urine output is a slightly better after the dose of Lasix has increased yesterday from 20 mg to 40 mg. He reports no pain in the chest. He continues to have shortness of breath which has not changed compared to before. No dizziness or lightheadedness and no feeling of heart racing or fluttering. On examination he does have diminished breathing sounds bilaterally. Assessment Cardiopulmonary arrest with PEA Known severe COPD/chronic hypoxic respiratory failure Paroxysmal atrial fibrillation Plan Continue the current medical regimen Continue oral anticoagulation Follow-up with the patient Objective - Vital Signs Vital signs: Vital Signs Temp 97.9 F 01/24/23 07:20 Pulse 51 L 01/24/23 07:20 Resp 18 01/24/23 07:20 BP 106/72 01/24/23 07:20 Pulse Ox 99 01/24/23 07:20 FiO2 50 01/24/23 02:45 Intake & Output 01/23/23 01/24/23 01/24/23 18:59 06:59 18:59 Intake Total 1190 Output Total 680 700 Balance 510 -700 Intake: Oral 1190 Output: Urine 680 700 Other: Voiding Method Indwelling Catheter Indwelling Catheter ABP, PAP, CO, CI - Last Documented Arterial Blood Pressure 130/75 - Labs CBC & Chem 7: 01/19/23 06:00 01/22/23 06:26
[2023-01-24] MEDS: TIOTROPIUM 2.5 MCG INHALER INHALATION SCH (09:01)
[2023-01-24] MEDS: ALBUTEROL HFA INHALER INHALATION SCH ×5 (09:01→21:26)
[2023-01-24] MEDS: BUDESONIDE 1 MG/2 ML NEBU INHALATION SCH ×2 (09:01→21:21)
[2023-01-24] MEDS: FORMOTEROL FUMARATE 20 MCG/2 ML NEBU INHALATION SCH ×2 (09:01→21:21)
[2023-01-24] MEDS: PIPERACILLIN-TAZOBACTAM 3.375 GM in SODIUM CHLORIDE 0.9% 100 ML IVPB SCH ×2 (09:03→16:32)
[2023-01-24] MEDS: AMIODARONE 100 MG TAB PO SCH ×2 (09:04→21:46)
[2023-01-24] MEDS: FUROSEMIDE 40 MG TAB PO SCH (09:04)
[2023-01-24] MEDS: APIXABAN 5 MG TAB PO SCH ×2 (09:04→21:47)
[2023-01-24] MEDS: ASPIRIN 81 MG PO SCH (09:04)
[2023-01-24] MEDS: GABAPENTIN 100 MG CAP PO SCH ×3 (09:04→21:47)
[2023-01-24] MEDS: METOPROLOL TARTRATE 50 MG TAB PO SCH ×2 (09:05→21:48)
[2023-01-24] MEDS: NICOTINE 21MG/24HR PATCH TRANSDERM SCH (09:05)
[2023-01-24] MEDS: predniSONE 20 MG TAB PO SCH (09:05)
[2023-01-24] MEDS: PANTOPRAZOLE 40 MG TABLET PO SCH (09:05)
[2023-01-24] MEDS: SENNOSIDES-DOCUSATE SODIUM 1 EACH TAB PO SCH ×2 (09:05→21:47)
--- NOTE | 2023-01-24 12:07 | P.PN ---
Subjective Progress Note Date: 01/24/23 This is 67-year-old male patient with a known history of atrial fibrillation anticoagulated with Eliquis, chronic obstructive pulmonary disease, oxygen dependent respiratory failure, hyperlipidemia, hypertension, hypothyroidism, bipolar disorder, chronic and ongoing tobacco dependence, marijuana use. He was brought into the emergency room yesterday by family around noontime for increasing shortness of breath and chest wall pain. The patient had been falling approximately 3 times in the past 3 weeks. He was quite short of breath and dyspneic with exertion. He was originally being admitted to the regular medical floor when prior to his transfer from the emergency department he developed a cardiac arrest requiring approximately 5 minutes of CPR including 3 A of epinephrine and 2 units Amps of bicarb. He was also having some nonsustained VT and was given amiodarone bolus. He was intubated and transferred to the intensive care unit. He is seen today in consultation. He is currently on the mechanical ventilator in assist control mode at a rate of 24, tidal out of 450, FiO2 80% and a PEEP of 5. Morning blood gases revealed a PaO2 of 97, pCO2 67, pH 7.35 on the 80% FiO2. His x-ray reveals persistent large hiatal hernia. Persistent bibasilar opacities. Echocardiogram revealed left ventricular systolic function with ejection fraction 45-50%. Sputum culture pending. White count 13.9. Hemoglobin 16.2. Platelets 123. Sodium 138. Potassium 3.7. Bicarb 38. BUN 20. Creatinine 1.19. Glucose 136. He is sedated with propofol at 40 mcg/kg/m. Requiring norepinephrine at 4.3 mcg/m. He's initiated on bronchodilators, IV Solu-Medrol. Anticoagulated with Eliquis. NicoDerm patch in place. The patient is seen today 01/13/2023 in follow-up in the intensive care unit. He remains intubated on mechanical ventilator in assist control at a rate of 24, tidal volume 450, FiO2 50% and a PEEP of 5. Morning blood gases revealed a pO2 of 66, pCO2 52, pH 7.44. He is sedated on propofol 20 mcg/kg/m. Norepinephrine at 15 mcg/m. Lactated Ringer's at 75 ML's per hour. He is being nourished with vital 8. Her rate of 30 with a goal of 60. He did have some issues with atrial fibrillation and is currently in sinus rhythm. Chest x-ray revealed stable bibasilar atelectasis with a small left effusion. Endotracheal and gastric tube secured in place. Left internal CVP line in place. Sputum cultures pending. White count 17.9. Hemoglobin 16.2. Platelets 159. Sodium 136. Potassium 3.9. Bicarb 35. BUN 23. Creatinine 1.03. Glucose 146. ProBNP 1150. Troponin 0.016. He is currently in a +2.5 L balance. He is maintained on albuterol inhalations, Pulmicort and Perforomist inhalations, IV Solu-Medrol. NicoDerm patch in place. Anticoagulated with Eliquis. The patient is seen today 01/14/2023 in follow-up in the intensive care unit. He remains intubated and on the mechanical ventilator. Currently in assist control mode at a rate of 24, tidal and 450, FiO2 70% and a PEEP of 10. Morning blood gases revealed a P O2 of 68, pCO2 51, pH 7.45. He is sedated on propofol at 20 mcg/kg/m. Lactated Ringer's at 75 ML's per hour. Currently the norepinephrine is off. He is receiving vital HP at 60 ML's per hour which is goal for nutritional support. Chest x-ray reveals stable bibasilar atelectasis with a small left effusion. DT scan of the brain was negative. No mass effect or midline shift. No intracranial hemorrhage. Sputum culture pending. Pro-calcitonin 0.08. White count 15.6. Hemoglobin 15.1. Sodium 139. Potassium 4.3. Bicarb 30. BUN 30. Creatinine 1.07. Glucose 131. Currently in a +1.5 L balance. He remains on Pulmicort and Perforomist inhalations, albuterol inhalations, IV Solu-Medrol. NicoDerm patch in place. Anticoagulated with Eliquis. The patient is seen today 01/22/2023 in follow-up on the regular medical floor. He was subsequently extubated and transferred out of the ICU. He is currently awake and alert. Oriented times one. He is on 6 L high flow nasal cannula. Alternating with BiPAP 12/6 and 50% FiO2. His sputum was positive for Citrobacter koseri. Sodium 143. Potassium 4.1. Bicarb 28. BUN 48. Creat inine 1.0. He remains on amiodarone. Anticoagulated with Eliquis. Continued on bronchodilators. Continued on diuretics. Antibiotics in the form of Zosyn. NicoDerm patch in place. He is working with PT/OT. The plan is for subacute rehab at discharge. The patient is seen today 01/23/2023 in follow-up on the regular medical floor. He is sitting up in bed. Awake and alert in no acute distress. He is tolerating his meals well. Currently maintaining O2 saturations in the upper 90s on 5 L high flow nasal cannula. MRI of the brain revealed mild diffuse cerebral atrophy and mild to minimal chronic small vessel ischemic change. No MRI evidence of recent infarct. Mild to borderline moderate compression type fracture T1 level is presumed chronic and age. Spondylolisthesis and degenera tive changes C5 through C6. He is continued on bronchodilators, antibiotics in the form of Zosyn. Anticoagulated with Eliquis. NicoDerm patch in place. The patient is seen today 01/24/2023 in follow-up on the regular medical floor. He is currently sitting up in bed. Awake and alert in no acute distress. Maintaining O2 saturations in the 90s on 4 L/m per nasal cannula. Sputum culture from 01/11/2023 was positive for Citrobacter koseri. He remains on Zosyn. Remains on bronchodilators. Anticoagulated with Eliquis. Objective - Vital Signs Vital signs: Vital Signs Temp 97.6 F 01/24/23 10:51 Pulse 67 01/24/23 10:51 Resp 15 01/24/23 10:51 BP 94/62 01/24/23 10:51 Pulse Ox 95 01/24/23 10:51 FiO2 50 01/24/23 02:45 Intake & Output 01/23/23 01/24/23 01/24/23 18:59 06:59 18:59 Intake Total 1190 225 Output Total 680 700 245 Balance 510 -700 -20 Weight 107.4 kg Intake: Oral 1190 225 Output: Urine 680 700 245 Other: Voiding Method Indwelling Catheter Indwelling Catheter Indwelling Catheter ABP, PAP, CO, CI - Last Documented Arterial Blood Pressure 130/75 - Exam GENERAL EXAM: Alert, 67-year-old male patient, on 4 L nasal cannula, comfortable in no apparent distress. HEAD: Normocephalic. EYES: Normal reaction of pupils, equal size. NOSE: Clear with pink turbinates. THROAT: No erythema or exudates. NECK: No masses, no JVD. CHEST: No chest wall deformity. LUNGS: Equal air entry with few scattered rhonchi. CVS: S1 and S2 normal with no audible murmur, regular rhythm. ABDOMEN: No hepatosplenomegaly, normal bowel sounds, no guarding or rigidity. SPINE: No scoliosis or deformity SKIN: No rashes CENTRAL NERVOUS SYSTEM: Alert, tone is normal in all 4 extremities. EXTREMITIES: There is no peripheral edema. No clubbing, no cyanosis. Peripheral pulses are intact. - Labs CBC & Chem 7: 01/19/23 06:00 01/22/23 06:26 Assessment and Plan Assessment: In-hospital cardiac arrest requiring CPR and subsequent return of spontaneous circulation within approximately 5 minutes. It is likely that this started off with a respiratory arrest and following that the patient had a cardiac arrest/asystole. The patient remains stable on oral amiodarone at a dose of 200 mg once a day. No further arrhythmias has been noted and the patient is currently hemodynamically stable. Acute hypoxemic respiratory failure secondary to above requiring intubation and mechanical ventilatory support on 01/11/2023 and subsequently extubated on 01/18/2023. Currently on 4 L high flow nasal cannula. Encephalopathy post cardiac arrest and the patient is improving, currently on no sedation, no focal neurological deficits and he is also communicating. CAT scan of the brain that was done on 01/13/2023 showed no acute abnormalities. The patient is fully alert and awake and communicating. He remains profoundly weak. Acute bilateral pneumonia with multifocal by the pulmonary infiltrate and the patient is currently on IV Zosyn. The sputum sample was positive for Citrobacter koseri Hypotension requiring pressor support, improved and off norepinephrine History of oxygen dependent chronic obstructive pulmonary disease Chronic and ongoing tobacco dependence Chronic atrial fibrillation, anticoagulated with Eliquis History of hypertension Hyperlipidemia Hypothyroidism History of bipolar disorder History of anxiety/depression History of marijuana use Plan: The patient was seen and evaluated Medications reviewed Remains on Zosyn, could be completed with Augmentin Continue bronchodilators, prednisone taper Wean down the FiO2 as tolerated Plan is for subacute rehabilitation at discharge I have personally seen and examined the patient, performed the documentation and the assessment and plan as written. Number of minutes spent on the visit: 10.
--- NOTE | 2023-01-24 16:57 | P.PN ---
Progress Note - Text Progress Note Date: 01/24/23 Chief Complaint: Shortness of breath, chest pain This is a 67-year-old patient who follows with Dr. Alvin Villela. Chronic stable medical conditions include hyperlipidemia, hypothyroid, bipolar, atrial fibrillation. Patient is a smoker. COPD, CHF, bipolar, hiatal hernia Patient presented to the ER, brought in by the family because of shortness of breath and chest pain. In the last 3 weeks apparently patient fallen about 3 times. No fever no chills. Some palpitations. Increasing lower extremity edema. Nonproductive cough. Late in the afternoon patient was found to be in PEA. Code team was called. Patient did require epinephrine. intubated. FiO2 100 and PEEP of 5. Patient have a broad complex tachycardia. Grain Processor Dr. Steve was informed. Admitted with acute COPD exacerbation, acute CHF exacerbation, acute hypoxic hypercapnic respiratory failure. Intubated. 01/12/2023: ICU. Drips include IV propofol, Levophed. Patient sedated. Telemetry shows sinus rhythm. FiO2 70 to PEEP of 5. Patient seen by department editor Dr. Valdes. IV Lasix has been discontinued. IV fluids. 01/13/2023: ICU. Intubated. FiO2 70 PEEP of 10. Drips include propofol and norepinephrine. 2 feeding at 40 mL an hour. Patient went into A. fib with rapid ventricle rate yesterday. Was put on IV Cardizem and IV amiodarone. Went back into sinus rhythm. There was some concern about neuro status change for which neurology was consulted, pending computed tomography scan. No focal weakness. His started on IV Keppra per neurology 01/14/2023: ICU. Intubated. FiO2 70 PEEP of 10. Patient is off levo fed since this morning. On IV propofol. OG tube for feeding at 60 mL an hour. Significant secretions checks x-ray showing infiltrate. His started on IV Zosyn. and daughter the bedside. Discussed. Eliquis. Cordarone. IV Solu-Medrol. IV Keppra. 01/15/2023: ICU. Intubated. FiO2 70 PEEP of 10. 2 feeding. Telemetry sinus rhythm. OG tube feeding. Patient has remained off levo fed. IV Zosyn. IV Keppra. 01/16/2023: ICU. Intubated. FiO2 50 PEEP of 7. Sinus rhythm. Sedation holiday today. Getting 2 feeding. 01/17/2023: ICU. Intubated. FiO2 50 PEEP of 7. OG tube feeding. At 30 mL an hour. Sinus rhythm. Oral amiodarone. Eliquis. IV Lasix 20 mg every 12. IV Keppra. IV Zosyn. Remains off levo fed. Off propofol. 01/18/2023: ICU. Patient extubated this morning. Currently on 12 L. Lethargic but following commands. Sinus rhythm. at the bedside. Congested cough. IV Keppra. IV Zosyn. IV Lasix 01/19/2023: ICU. Patient on Ventimask at 6 L.. Diet. Sinus rhythm. Weak in all the limbs. PTOT consulted. 01/20/2023 Patient remains in the ICU very weak and confused, patient today he did not answer questions and he does not follow commands he opens eyes spontaneously before go back to sleep, he was still on CPAP machine. Also he was very short of breath which limits his ability to communicate. Hemodynamically and labs are stable. He has Shook catheter in He remains on Zosyn, prednisone 20 mg, home dose of Eliquis, aspirin 81 mg, Keppra, oral Lasix 40 mg daily and oral amiodarone 200 mg 01/21/2023 Patient today is more awake and interactive but very weak and lethargic, he can hardly move his extremities: Without dyspnea secondary to his critical care myopathy, at the same time his blood pressure on the low side and is on several medications including Keppra. As reported patient with known history of seizure prior to admission and Keppra dose was lowered 750 milligrams down to 500 mg twice a day. Blood pressure was on the low site 90/60 and he is on metoprolol with dose was lowered 50 mg from 75 mg twice a day. his blood pressure into 81/60, discussed with staff for close monitoring. Shook catheter was discontinued, bladder scan was checked was 270 mm Patient remains on Zosyn, prednisone 20 mg and Eliquis, Aspirin 81. Patient was transferred to the general medical floor today 01/23/2023: I resumed the care of the patient today from [facility]. Sitting up in bed. Feeling better. Slight cough. On 5 L nasal cannula. Eating close to 100%. Spoke to family caseworker. Looking at ECF washes and authorization. Patient is requiring maximum/2 people assist. For stand up and go to the chair. Incentive spirometry ordered. 01/24/2023: Patient was stable to be discharged. 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 Eating well. Changed over to oral antibiotic. Breathing better. FiO2 decreased to 3 L. Active Medications Acetaminophen (Acetaminophen Tab 325 Mg Tab) 650 mg PO Q4HR PRN PRN Reason: Mild Pain or Fever > 100.5 Albuterol Sulfate (Albuterol Hfa Inhaler) 2 puff INHALATION RT-QID [facility] Last Admin: 01/24/23 15:39 Dose: 2 puff Amiodarone HCl (Amiodarone 100 Mg Tab) 100 mg PO BID [facility] Last Admin: 01/24/23 09:04 Dose: 100 mg Apixaban (Apixaban 5 Mg Tab) 5 mg PO BID [facility]; Protocol Last Admin: 01/24/23 09:04 Dose: 5 mg Aspirin (Aspirin 81 Mg) 81 mg PO DAILY [facility] Last Admin: 01/24/23 09:04 Dose: 81 mg Bisacodyl (Bisacodyl 10 Mg Supp) 10 mg RECTAL DAILY PRN PRN Reason: Constipation Last Admin: 01/19/23 18:54 Dose: 10 mg Budesonide (Budesonide 1 Mg/2 Ml Nebu) 1 mg INHALATION RT-BID [facility] Last Admin: 01/24/23 09:01 Dose: Not Given Formoterol Fumarate (Formoterol Fumarate 20 Mcg/2 Ml Nebu) 20 mcg INHALATION RT-BID [facility] Last Admin: 01/24/23 09:01 Dose: Not Given Furosemide (Furosemide 40 Mg Tab) 40 mg PO DAILY [facility] Last Admin: 01/24/23 09:04 Dose: 40 mg Gabapentin (Gabapentin 100 Mg Cap) 200 mg PO TID [facility] Last Admin: 01/24/23 16:33 Dose: 200 mg Piperacillin Sod/Tazobactam (Sod 3.375 gm/ Sodium Chloride) 100 mls @ 25 mls/hr IVPB Q8HR [facility]; Protocol Last Admin: 01/24/23 16:32 Dose: Not Given Latanoprost (Latanoprost 0.005% Ophth Drops 2.5 Ml Btl) 1 drops LEFT EYE HS [facility] Last Admin: 01/23/23 20:31 Dose: 1 drops Levothyroxine Sodium (Levothyroxine 125 Mcg Tab) 125 mcg PO DAILY@0630 [facility] Last Admin: 01/24/23 06:49 Dose: 125 mcg Lisinopril (Lisinopril 2.5 Mg Tab) 2.5 mg PO BID [facility] Last Admin: 01/24/23 09:05 Dose: 2.5 mg Metoprolol Tartrate (Metoprolol Tartrate 50 Mg Tab) 50 mg PO BID [facility] Last Admin: 01/24/23 09:05 Dose: 50 mg Midodrine (Midodrine 5 Mg Tab) 5 mg PO AC-TID [facility] Last Admin: 01/24/23 16:33 Dose: 5 mg Miscellaneous Information (Potassium Replacement Protocol 1 Each Misc) 1 each MISCELLANE DAILY PRN; Protocol PRN Reason: Per Protocol Naloxone HCl (Naloxone 0.4 Mg/Ml 1 Ml Vial) 0.2 mg IVP Q2M PRN PRN Reason: Opioid Reversal Nicotine (Nicotine 21mg/24hr Patch) 1 patch TRANSDERM DAILY [facility] Last Admin: 01/24/23 09:05 Dose: 1 patch Olanzapine (Olanzapine 10 Mg Tab) 20 mg PO HS [facility] Last Admin: 01/23/23 20:29 Dose: 20 mg Pantoprazole Sodium (Pantoprazole 40 Mg Tablet) 40 mg PO DAILY [facility] Last Admin: 01/24/23 09:05 Dose: 40 mg Prednisone (Prednisone 20 Mg Tab) 20 mg PO DAILY [facility] Last Admin: 01/24/23 09:05 Dose: 20 mg Senna/Docusate Sodium (Sennosides-Docusate Sodium 1 Each Tab) 2 each PO BID [facility] Last Admin: 01/24/23 09:05 Dose: 2 each Tiotropium [place] (Tiotropium 2.5 Mcg Inhaler) 2 puff INHALATION RT-DAILY [facility] Last Admin: 01/24/23 09:01 Dose: Not Given Past medical history to include: COPD, hyperlipidemia, hypothyroid, bipolar, atrial fibrillation, bipolar, CHF, he had hernia Social history: Lives with sister Marifer, smokes a pack a day for many years, no alcohol Physical examination: VITAL SIGNS: 97.5, 76, 20, 92 was 62, 95% on 5 L GENERAL: Reclining, comfortable EYES: Pupils equal. Conjunctiva normal. HEENT: External appearance of nose and ears normal, oral cavity grossly normal. NECK: JVD is able to assess; masses not palpable. HEART: First and second heart sounds are normal; edema present LUNGS: Respiratory rate increased; decreased breath sounds , coarse breath sounds ABDOMEN: Soft, nontender, liver spleen not palpable, no masses palpable. PSYCH: Answering questions appropriately. MUSCULOSKELETAL:No Clubbing/cyanosis;muscles-grossly intact. Evidence of OA INVESTIGATIONS, reviewed in the clinical context: 01/23/2023: Potassium 4.1 creatinine 1 01/19/2023: White count 10.8 hemoglobin 15.9 platelets 152 Sputum culture: Citrobacter koseri EEG: Encephalopathy. No seizure activity. 01/13/2023: White count 7.19 globin 16.2 potassium 3.9 BUN 23 creatinine 1.03 troponin I 0.016 proBNP 1150 2-D echocardiogram: EF 45-50%. Right ventricle dilatation, right ventricular hypertrophy 01/12/2023: White count 13.9 hemoglobin 16.2 platelets 123 potassium 3.7 creatinine 1.19 cortisol 22 TSH 0.548 White count 10.6 hemoglobin 16.4 platelets 153 potassium 3.1 BUN 24 creatinine 1.4 to AST 79 ALT 65 Procalcitonin 0.08 ABG: PH 7.18 pCO2 102 pO2 153 EKG tracing personally reviewed by me-normal sinus rhythm. Intraventricular block. Poor R-wave progression. Chest x-ray film personally reviewed by me-large hiatal hernia. Cardiomegaly. Venous prominence. Assessment and plan: -Acute hypoxic and hypercapnic respiratory failure secondary to COPD exacerbation and CHF exacerbation: Improving Was on ventilator assist. Extubated January 18. Currently 3 L nasal cannula -Paroxysmal atrial fibrillation flutter, had an episode of rapid rate - Back in sinus rhythm Telemetry. Eliquis 5 mg twice a day. Lopressor 50 mg twice a day flecainide- discontinued. Cordarone. -Possible seizure due to cardiac arrest.. Keppra started and discontinued.. EEG negative for seizure activity -Critical care myopathy.: PTOT. -Possible aspiration pneumonia, culture positive for Citrobacter koseri IV Zosyn-completed course . Augmentin -Acute COPD exacerbation in a current smoker Albuterol 4 times a day.. Prednisone 20 mg. Nebulized Perforomist and Pulmicort, Spiriva. -Acute on Chronic congestive heart failure from systolic dysfunction EF 45-50%-better Lasix 80 mg daily -Hypothyroid Levothyroxine 125 g a day -Essential hypertension . Lopressor 50 mg twice a day -Cardiogenic shock: Better Taken off off levo fed -OG tube feeding-discontinued -Chronic nicotine dependence, cigarette smoker Nicotine patch -Bipolar disorder Zyprexa 20 mg daily at bedtime. -Dysphagia. Being followed by speech therapist Levels 3 chopped diet. Neck to thick liquids. Wants to one supervision. -Full code DC IV Zosyn. Looking for placement. Oxygen down to 3 L. Discussed with patient. Discussed with family caseworker.
[2023-01-24] MEDS: OLANZapine 10 MG TAB PO SCH (21:46)
[2023-01-24] MEDS: AMOXIC-POT CLAV 875-125MG 1 EACH TAB PO SCH (21:47)
[2023-01-24] MEDS: LATANOPROST 0.005% OPHTH DROPS 2.5 ML BTL LEFT EYE SCH (21:49)
[2023-01-25] MEDS: BUDESONIDE 1 MG/2 ML NEBU INHALATION SCH ×2 (08:27→20:01)
[2023-01-25] MEDS: FORMOTEROL FUMARATE 20 MCG/2 ML NEBU INHALATION SCH ×2 (08:27→20:01)
[2023-01-25] MEDS: TIOTROPIUM 2.5 MCG INHALER INHALATION SCH (08:27)
[2023-01-25] MEDS: ALBUTEROL HFA INHALER INHALATION SCH ×4 (08:28→20:02)
--- NOTE | 2023-01-25 09:17 | P.PN ---
Subjective Progress Note Date: 01/25/23 Principal diagnosis: Cardiopulmonary arrest The patient is a 67-year-old gentleman who we are asked to be seen in the intensive care unit for further cardiac evaluation. Currently the patient is intubated and he is on mechanical ventilation. The history was taken from the chart as well as from the nurse taking care of the patient. Apparently the patient presented to the emergency department with progressive dyspnea of unknown duration. He is known to have chronic obstructive pulmonary disease and also paroxysmal atrial fibrillation and cardiomyopathy. In the emergency department he was evaluated and during his stay he did have an episode of cardiopulmonary arrest with PEA. The downtime was about 5 minutes. Subsequently the patient was intubated and he was admitted to the intensive care unit. Currently he is on norepinephrine. He is in normal sinus mechanism. He was on flecainide. No indication that he was experiencing any symptoms of chest pain or chest discomfort before but he presented with increasing shortness of breath. He is known to have severe COPD and he is on oxygen at 3 L. The chest x-ray showed findings consistent with chronic disease/COPD. No troponin was performed. The rest of his discomfort overall appeared unremarkable. 01/13/2023 The patient was seen this morning. He continues to be intubated on mechanical ventilation. Currently there is a concern about an exit encephalopathy and he is in process computed tomography scan. He is now in sinus mechanism with sinus bradycardia. I'm going to DC amiodarone IV and start the patient on amiodarone by mouth 200 mg twice a day the Cardizem was stopped yesterday. Hold any antic oagulation at this point. Acute coronary syndrome was ruled out with 3 serial troponin came in to be unremarkable January 142022 The patient was seen this morning. He continues to be intubated on mechanical ventilation but he is off vasopressors was norepinephrine. Urine output has been better. He has been maintaining normal sinus mechanism and currently is currently on beta jazmin as well as he is on amiodarone and he is also on oral anticoagulation. He is also on flecainide. The last echo showed an EF between 45-50%. January 222022 The patient was seen and evaluated this morning. Overall he seems to be stable beside marginally low blood pressure and heart rate. The dose of beta jazmin yesterday and I'm going to decrease the dose of amiodarone and also decrease the dose of Lasix. He continues to be on oxygen at 2 L. On examination he does have diminished breathing sounds bilaterally and mild bilateral expiratory wheezing but no lower extremities edema noted. He is on anticoagulation for the atrial fibrillation. 01/23/2023 The patient was seen this morning. He remains hypoxic requiring high flow oxygen. Urine output has been low. On examination he does have diminished breathing sounds bilaterally. I am going to increase the dose of Lasix from 20 mg by mouth daily to 40 mg by mouth daily. His pressure has been within normal limits. On examination he does have diminished breathing sounds bilaterally with bilateral and mostly on the right hand edema. January 242022 The patient was seen and evaluated this morning. He remains stable overall from the cardiac standpoint overview. He continues to be on 6 L oxygen. Urine output is a slightly better after the dose of Lasix has increased yesterday from 20 mg to 40 mg. He reports no pain in the chest. He continues to have shortness of breath which has not changed compared to before. No dizziness or lightheadedness and no feeling of heart racing or fluttering. On examination he does have diminished breathing sounds bilaterally. January 252022 The patient was seen and evaluated this morning. Overall he remains stable. He is a slightly lethargic this morning. On examination he does have stable vital signs with regular rhythm and distant heart sounds and diminished breathing sounds bilaterally was mild bilateral expiratory wheezing. He has no lower extremity edema noted. He does have chronic skin changes Assessment Cardiopulmonary arrest with PEA Known severe COPD/chronic hypoxic respiratory failure Paroxysmal atrial fibrillation Plan Continue the current medical regimen Continue oral anticoagulation Follow-up with the patient Objective - Vital Signs Vital signs: Vital Signs Temp 98.6 F 01/25/23 07:20 Pulse 47 L 01/25/23 07:20 Resp 17 01/25/23 07:20 BP 119/77 01/25/23 07:20 Pulse Ox 98 01/25/23 08:29 FiO2 40 01/25/23 08:29 Intake & Output 01/24/23 01/25/23 01/25/23 18:59 06:59 18:59 Intake Total 225 Output Total 945 1750 Balance -720 -1750 Weight 107.4 kg Intake: Oral 225 Output: Urine 945 1750 Uretheral (Shook) 150 Other: Voiding Method Indwelling Catheter Indwelling Catheter ABP, PAP, CO, CI - Last Documented Arterial Blood Pressure 130/75 - Labs CBC & Chem 7: 01/19/23 06:00 01/22/23 06:26
[2023-01-25] MEDS: LEVOTHYROXINE 125 MCG TAB PO SCH (09:40)
[2023-01-25] MEDS: NICOTINE 21MG/24HR PATCH TRANSDERM SCH (09:40)
[2023-01-25] MEDS: MIDODRINE 5 MG TAB PO SCH ×3 (09:40→18:40)
[2023-01-25] MEDS: FUROSEMIDE 40 MG TAB PO SCH (09:40)
[2023-01-25] MEDS: PANTOPRAZOLE 40 MG TABLET PO SCH (09:40)
[2023-01-25] MEDS: AMOXIC-POT CLAV 875-125MG 1 EACH TAB PO SCH ×2 (09:40→22:05)
[2023-01-25] MEDS: AMIODARONE 100 MG TAB PO SCH ×2 (09:40→22:05)
[2023-01-25] MEDS: APIXABAN 5 MG TAB PO SCH ×2 (09:41→22:05)
[2023-01-25] MEDS: GABAPENTIN 100 MG CAP PO SCH ×3 (09:41→22:05)
[2023-01-25] MEDS: SENNOSIDES-DOCUSATE SODIUM 1 EACH TAB PO SCH ×2 (09:41→22:04)
[2023-01-25] MEDS: ASPIRIN 81 MG PO SCH (09:41)
[2023-01-25] MEDS: predniSONE 20 MG TAB PO SCH (09:41)
[2023-01-25] MEDS: METOPROLOL TARTRATE 50 MG TAB PO SCH ×2 (09:41→22:05)
--- NOTE | 2023-01-25 11:32 | P.PN ---
Subjective Progress Note Date: 01/25/23 This is 67-year-old male patient with a known history of atrial fibrillation anticoagulated with Eliquis, chronic obstructive pulmonary disease, oxygen dependent respiratory failure, hyperlipidemia, hypertension, hypothyroidism, bipolar disorder, chronic and ongoing tobacco dependence, marijuana use. He was brought into the emergency room yesterday by family around noontime for increasing shortness of breath and chest wall pain. The patient had been falling approximately 3 times in the past 3 weeks. He was quite short of breath and dyspneic with exertion. He was originally being admitted to the regular medical floor when prior to his transfer from the emergency department he developed a cardiac arrest requiring approximately 5 minutes of CPR including 3 A of epinephrine and 2 units Amps of bicarb. He was also having some nonsustained VT and was given amiodarone bolus. He was intubated and transferred to the intensive care unit. He is seen today in consultation. He is currently on the mechanical ventilator in assist control mode at a rate of 24, tidal out of 450, FiO2 80% and a PEEP of 5. Morning blood gases revealed a PaO2 of 97, pCO2 67, pH 7.35 on the 80% FiO2. His x-ray reveals persistent large hiatal hernia. Persistent bibasilar opacities. Echocardiogram revealed left ventricular systolic function with ejection fraction 45-50%. Sputum culture pending. White count 13.9. Hemoglobin 16.2. Platelets 123. Sodium 138. Potassium 3.7. Bicarb 38. BUN 20. Creatinine 1.19. Glucose 136. He is sedated with propofol at 40 mcg/kg/m. Requiring norepinephrine at 4.3 mcg/m. He's initiated on bronchodilators, IV Solu-Medrol. Anticoagulated with Eliquis. NicoDerm patch in place. The patient is seen today 01/13/2023 in follow-up in the intensive care unit. He remains intubated on mechanical ventilator in assist control at a rate of 24, tidal volume 450, FiO2 50% and a PEEP of 5. Morning blood gases revealed a pO2 of 66, pCO2 52, pH 7.44. He is sedated on propofol 20 mcg/kg/m. Norepinephrine at 15 mcg/m. Lactated Ringer's at 75 ML's per hour. He is being nourished with vital 8. Her rate of 30 with a goal of 60. He did have some issues with atrial fibrillation and is currently in sinus rhythm. Chest x-ray revealed stable bibasilar atelectasis with a small left effusion. Endotracheal and gastric tube secured in place. Left internal CVP line in place. Sputum cultures pending. White count 17.9. Hemoglobin 16.2. Platelets 159. Sodium 136. Potassium 3.9. Bicarb 35. BUN 23. Creatinine 1.03. Glucose 146. ProBNP 1150. Troponin 0.016. He is currently in a +2.5 L balance. He is maintained on albuterol inhalations, Pulmicort and Perforomist inhalations, IV Solu-Medrol. NicoDerm patch in place. Anticoagulated with Eliquis. The patient is seen today 01/14/2023 in follow-up in the intensive care unit. He remains intubated and on the mechanical ventilator. Currently in assist control mode at a rate of 24, tidal and 450, FiO2 70% and a PEEP of 10. Morning blood gases revealed a P O2 of 68, pCO2 51, pH 7.45. He is sedated on propofol at 20 mcg/kg/m. Lactated Ringer's at 75 ML's per hour. Currently the norepinephrine is off. He is receiving vital HP at 60 ML's per hour which is goal for nutritional support. Chest x-ray reveals stable bibasilar atelectasis with a small left effusion. DT scan of the brain was negative. No mass effect or midline shift. No intracranial hemorrhage. Sputum culture pending. Pro-calcitonin 0.08. White count 15.6. Hemoglobin 15.1. Sodium 139. Potassium 4.3. Bicarb 30. BUN 30. Creatinine 1.07. Glucose 131. Currently in a +1.5 L balance. He remains on Pulmicort and Perforomist inhalations, albuterol inhalations, IV Solu-Medrol. NicoDerm patch in place. Anticoagulated with Eliquis. The patient is seen today 01/22/2023 in follow-up on the regular medical floor. He was subsequently extubated and transferred out of the ICU. He is currently awake and alert. Oriented times one. He is on 6 L high flow nasal cannula. Alternating with BiPAP 12/6 and 50% FiO2. His sputum was positive for Citrobacter koseri. Sodium 143. Potassium 4.1. Bicarb 28. BUN 48. Creat inine 1.0. He remains on amiodarone. Anticoagulated with Eliquis. Continued on bronchodilators. Continued on diuretics. Antibiotics in the form of Zosyn. NicoDerm patch in place. He is working with PT/OT. The plan is for subacute rehab at discharge. The patient is seen today 01/23/2023 in follow-up on the regular medical floor. He is sitting up in bed. Awake and alert in no acute distress. He is tolerating his meals well. Currently maintaining O2 saturations in the upper 90s on 5 L high flow nasal cannula. MRI of the brain revealed mild diffuse cerebral atrophy and mild to minimal chronic small vessel ischemic change. No MRI evidence of recent infarct. Mild to borderline moderate compression type fracture T1 level is presumed chronic and age. Spondylolisthesis and degenera tive changes C5 through C6. He is continued on bronchodilators, antibiotics in the form of Zosyn. Anticoagulated with Eliquis. NicoDerm patch in place. The patient is seen today 01/24/2023 in follow-up on the regular medical floor. He is currently sitting up in bed. Awake and alert in no acute distress. Maintaining O2 saturations in the 90s on 4 L/m per nasal cannula. Sputum culture from 01/11/2023 was positive for Citrobacter koseri. He remains on Zosyn. Remains on bronchodilators. Anticoagulated with Eliquis. The patient is seen today 01/25/2023 in follow-up on the regular medical floor. He remains awake and alert in no acute distress. He's been up to the chair with assistance. He is maintaining good O2 saturations in the 90s on 5 L high flow nasal cannula. He remains on Pulmicort and Perforomist inhalations, albuterol and Spiriva inhalations. Prednisone taper. Antibiotics in the form of Augmentin. NicoDerm patch in place. Anticoagulated with Eliquis. Objective - Vital Signs Vital signs: Vital Signs Temp 98.6 F 01/25/23 07:20 Pulse 47 L 01/25/23 07:35 Resp 17 01/25/23 07:35 BP 119/77 01/25/23 07:20 Pulse Ox 98 01/25/23 08:29 FiO2 40 01/25/23 08:29 Intake & Output 01/24/23 01/25/2301/25/23 18:59 06:59 18:59 Intake Total 225 Output Total 945 1750 Balance -720 -1750 Weight 107.4 kg Intake: Oral 225 Output: Urine 945 1750 Uretheral (Shook) 150 Other: Voiding Method Indwelling Catheter Indwelling Catheter Indwelling Catheter # Bowel Movements 1 ABP, PAP, CO, CI - Last Documented Arterial Blood Pressure 130/75 - Exam GENERAL EXAM: Alert, oriented, pleasant 67-year-old male patient, on 5 L nasal cannula, comfortable in no apparent distress. HEAD: Normocephalic. EYES: Normal reaction of pupils, equal size. NOSE: Clear with pink turbinates. THROAT: No erythema or exudates. NECK: No masses, no JVD. CHEST: No chest wall deformity. LUNGS: Equal air entry with few scattered rhonchi. CVS: S1 and S2 normal with no audible murmur, regular rhythm. ABDOMEN: No hepatosplenomegaly, normal bowel sounds, no guarding or rigidity. SPINE: No scoliosis or deformity SKIN: No rashes CENTRAL NERVOUS SYSTEM: Alert, tone is normal in all 4 extremities. EXTREMITIES: There is no peripheral edema. No clubbing, no cyanosis. Peripheral pulses are intact. - Labs CBC & Chem 7: 01/19/23 06:00 01/22/23 06:26 Assessment and Plan Assessment: In-hospital cardiac arrest requiring CPR and subsequent return of spontaneous circulation within approximately 5 minutes. It is likely that this started off with a respiratory arrest and following that the patient had a cardiac arrest/asystole. The patient remains stable on oral amiodarone at a dose of 100 mg twice a day. No further arrhythmias has been noted and the patient is currently hemodynamically stable. Acute hypoxemic respiratory failure secondary to above requiring intubation and mechanical ventilatory support on 01/11/2023 and subsequently extubated on 01/18/2023. Currently on 5 L high flow nasal cannula. Encephalopathy post cardiac arrest and the patient is improving, currently on no sedation, no focal neurological deficits and he is also communicating. CAT scan of the brain that was done on 01/13/2023 showed no acute abnormalities. The patient is fully alert and awake and communicating. Acute bilateral pneumonia with multifocal by the pulmonary infiltrate and the patient is currently on Augmentin. The sputum sample was positive for Citrobacter koseri Hypotension requiring pressor support, improved and off norepinephrine History of oxygen dependent chronic obstructive pulmonary disease Chronic and ongoing tobacco dependence Chronic atrial fibrillation, anticoagulated with Eliquis History of hypertension Hyperlipidemia Hypothyroidism History of bipolar disorder History of anxiety/depression History of marijuana use Plan: The patient was seen and evaluated Medications reviewed Remains on Augmentin Continue bronchodilators, prednisone taper Wean down the FiO2 as tolerated Plan is for subacute rehabilitation at discharge I have personally seen and examined the patient, performed the documentation and the assessment and plan as written. Number of minutes spent on the visit: 10.
--- NOTE | 2023-01-25 17:38 | P.PN ---
Progress Note - Text Progress Note Date: 01/25/23 Chief Complaint: Shortness of breath, chest pain This is a 67-year-old patient who follows with Dr. Alvin Villela. Chronic stable medical conditions include hyperlipidemia, hypothyroid, bipolar, atrial fibrillation. Patient is a smoker. COPD, CHF, bipolar, hiatal hernia Patient presented to the ER, brought in by the family because of shortness of breath and chest pain. In the last 3 weeks apparently patient fallen about 3 times. No fever no chills. Some palpitations. Increasing lower extremity edema. Nonproductive cough. Late in the afternoon patient was found to be in PEA. Code team was called. Patient did require epinephrine. intubated. FiO2 100 and PEEP of 5. Patient have a broad complex tachycardia. Quality Control Lead Dr. Steve was informed. Admitted with acute COPD exacerbation, acute CHF exacerbation, acute hypoxic hypercapnic respiratory failure. Intubated. 01/12/2023: ICU. Drips include IV propofol, Levophed. Patient sedated. Telemetry shows sinus rhythm. FiO2 70 to PEEP of 5. Patient seen by industrial conveyor belt repairer Dr. Valdes. IV Lasix has been discontinued. IV fluids. 01/13/2023: ICU. Intubated. FiO2 70 PEEP of 10. Drips include propofol and norepinephrine. 2 feeding at 40 mL an hour. Patient went into A. fib with rapid ventricle rate yesterday. Was put on IV Cardizem and IV amiodarone. Went back into sinus rhythm. There was some concern about neuro status change for which neurology was consulted, pending computed tomography scan. No focal weakness. His started on IV Keppra per neurology 01/14/2023: ICU. Intubated. FiO2 70 PEEP of 10. Patient is off levo fed since this morning. On IV propofol. OG tube for feeding at 60 mL an hour. Significant secretions checks x-ray showing infiltrate. His started on IV Zosyn. and daughter the bedside. Discussed. Eliquis. Cordarone. IV Solu-Medrol. IV Keppra. 01/15/2023: ICU. Intubated. FiO2 70 PEEP of 10. 2 feeding. Telemetry sinus rhythm. OG tube feeding. Patient has remained off levo fed. IV Zosyn. IV Keppra. 01/16/2023: ICU. Intubated. FiO2 50 PEEP of 7. Sinus rhythm. Sedation holiday today. Getting 2 feeding. 01/17/2023: ICU. Intubated. FiO2 50 PEEP of 7. OG tube feeding. At 30 mL an hour. Sinus rhythm. Oral amiodarone. Eliquis. IV Lasix 20 mg every 12. IV Keppra. IV Zosyn. Remains off levo fed. Off propofol. 01/18/2023: ICU. Patient extubated this morning. Currently on 12 L. Lethargic but following commands. Sinus rhythm. at the bedside. Congested cough. IV Keppra. IV Zosyn. IV Lasix 01/19/2023: ICU. Patient on Ventimask at 6 L.. Diet. Sinus rhythm. Weak in all the limbs. PTOT consulted. 01/20/2023 Patient remains in the ICU very weak and confused, patient today he did not answer questions and he does not follow commands he opens eyes spontaneously before go back to sleep, he was still on CPAP machine. Also he was very short of breath which limits his ability to communicate. Hemodynamically and labs are stable. He has Shook catheter in He remains on Zosyn, prednisone 20 mg, home dose of Eliquis, aspirin 81 mg, Keppra, oral Lasix 40 mg daily and oral amiodarone 200 mg 01/21/2023 Patient today is more awake and interactive but very weak and lethargic, he can hardly move his extremities: Without dyspnea secondary to his critical care myopathy, at the same time his blood pressure on the low side and is on several medications including Keppra. As reported patient with known history of seizure prior to admission and Keppra dose was lowered 750 milligrams down to 500 mg twice a day. Blood pressure was on the low site 90/60 and he is on metoprolol with dose was lowered 50 mg from 75 mg twice a day. his blood pressure into 81/60, discussed with staff for close monitoring. Shook catheter was discontinued, bladder scan was checked was 270 mm Patient remains on Zosyn, prednisone 20 mg and Eliquis, Aspirin 81. Patient was transferred to the general medical floor today 01/23/2023: I resumed the care of the patient today from [facility]. Sitting up in bed. Feeling better. Slight cough. On 5 L nasal cannula. Eating close to 100%. Spoke to field nurse case manager. Looking at ECF washes and authorization. Patient is requiring maximum/2 people assist. For stand up and go to the chair. Incentive spirometry ordered. 01/24/2023: Patient was stable to be discharged. client integration manager looking for a place to rehab. Eating well. Changed over to oral antibiotic. Breathing better. FiO2 decreased to 3 L. 01/25/2023: 5 nasal cannula. Eating well. Patient remains maximum assist. Spoke to field nurse case manager. Currently no place available for rehab. Active Medications Acetaminophen (Acetaminophen Tab 325 Mg Tab) 650 mg PO Q4HR PRN PRN Reason: Mild Pain or Fever > 100.5 Albuterol Sulfate (Albuterol Hfa Inhaler) 2 puff INHALATION RT-QID [facility] Last Admin: 01/25/23 16:10 Dose: 2 puff Amiodarone HCl (Amiodarone 100 Mg Tab) 100 mg PO BID [facility] Last Admin: 01/25/23 09:40 Dose: 100 mg Amoxicillin/Clavulanate Potassium (Amoxic-Pot Clav 875-125mg 1 Each Tab) 1 each PO Q12HR [facility]; Protocol Last Admin: 01/25/23 09:40 Dose: 1 each Apixaban (Apixaban 5 Mg Tab) 5 mg PO BID [facility]; Protocol Last Admin: 01/25/23 09:41 Dose: 5 mg Aspirin (Aspirin 81 Mg) 81 mg PO DAILY [facility] Last Admin: 01/25/23 09:41 Dose: 81 mg Bisacodyl (Bisacodyl 10 Mg Supp) 10 mg RECTAL DAILY PRN PRN Reason: Constipation Last Admin: 01/19/23 18:54 Dose: 10 mg Budesonide (Budesonide 1 Mg/2 Ml Nebu) 1 mg INHALATION RT-BID [facility] Last Admin: 01/25/23 08:27 Dose: Not Given Formoterol Fumarate (Formoterol Fumarate 20 Mcg/2 Ml Nebu) 20 mcg INHALATION RT-BID [facility] Last Admin: 01/25/23 08:27 Dose: Not Given Furosemide (Furosemide 40 Mg Tab) 40 mg PO DAILY [facility] Last Admin: 01/25/23 09:40 Dose: 40 mg Gabapentin (Gabapentin 100 Mg Cap) 200 mg PO TID [facility] Last Admin: 01/25/23 16:23 Dose: 200 mg Latanoprost (Latanoprost 0.005% Ophth Drops 2.5 Ml Btl) 1 drops LEFT EYE HS [facility] Last Admin: 01/24/23 21:49 Dose: 1 drops Levothyroxine Sodium (Levothyroxine 125 Mcg Tab) 125 mcg PO DAILY@0630 [facility] Last Admin: 01/25/23 09:40 Dose: 125 mcg Lisinopril (Lisinopril 2.5 Mg Tab) 2.5 mg PO BID [facility] Last Admin: 01/25/23 09:40 Dose: 2.5 mg Metoprolol Tartrate (Metoprolol Tartrate 50 Mg Tab) 50 mg PO BID [facility] Last Admin: 01/25/23 09:41 Dose: Not Given Midodrine (Midodrine 5 Mg Tab) 5 mg PO AC-TID [facility] Last Admin: 01/25/23 12:59 Dose: Not Given Miscellaneous Information (Potassium Replacement Protocol 1 Each Misc) 1 each MISCELLANE DAILY PRN; Protocol PRN Reason: Per Protocol Naloxone HCl (Naloxone 0.4 Mg/Ml 1 Ml Vial) 0.2 mg IVP Q2M PRN PRN Reason: Opioid Reversal Nicotine (Nicotine 21mg/24hr Patch) 1 patch TRANSDERM DAILY [facility] Last Admin: 01/25/23 09:40 Dose: 1 patch Olanzapine (Olanzapine 10 Mg Tab) 20 mg PO HS [facility] Last Admin: 01/24/23 21:46 Dose: 20 mg Pantoprazole Sodium (Pantoprazole 40 Mg Tablet) 40 mg PO DAILY [facility] Last Admin: 01/25/23 09:40 Dose: 40 mg Prednisone (Prednisone 20 Mg Tab) 20 mg PO DAILY [facility] Last Admin: 01/25/23 09:41 Dose: 20 mg Senna/Docusate Sodium (Sennosides-Docusate Sodium 1 Each Tab) 2 each PO BID [facility] Last Admin: 01/25/23 09:41 Dose: 2 each Tiotropium [place] (Tiotropium 2.5 Mcg Inhaler) 2 puff INHALATION RT-DAILY [facility] Last Admin: 01/25/23 08:27 Dose: Not Given Past medical history to include: COPD, hyperlipidemia, hypothyroid, bipolar, atrial fibrillation, bipolar, CHF, he had hernia Social history: Lives with sister Marifer, smokes a pack a day for many years, no alcohol Physical examination: VITAL SIGNS: 98.6, 47, 17, 119 with 77, 98% on 5 L GENERAL: Reclining, comfortable EYES: Pupils equal. Conjunctiva normal. HEENT: External appearance of nose and ears normal, oral cavity grossly normal. NECK: JVD is able to assess; masses not palpable. HEART: First and second heart sounds are normal; edema present LUNGS: Respiratory rate increased; decreased breath sounds , coarse breath sounds ABDOMEN: Soft, nontender, liver spleen not palpable, no masses palpable. PSYCH: Answering questions appropriately. MUSCULOSKELETAL:No Clubbing/cyanosis;muscles-grossly intact. Evidence of OA NEUROLOGICAL: Decreased power in the limbs INVESTIGATIONS, reviewed in the clinical context: 01/23/2023: Potassium 4.1 creatinine 1 01/19/2023: White count 10.8 hemoglobin 15.9 platelets 152 Sputum culture: Citrobacter koseri EEG: Encephalopathy. No seizure activity. 01/13/2023: White count 7.19 globin 16.2 potassium 3.9 BUN 23 creatinine 1.03 troponin I 0.016 proBNP 1150 2-D echocardiogram: EF 45-50%. Right ventricle dilatation, right ventricular h ypertrophy 01/12/2023: White count 13.9 hemoglobin 16.2 platelets 123 potassium 3.7 creatinine 1.19 cortisol 22 TSH 0.548 White count 10.6 hemoglobin 16.4 platelets 153 potassium 3.1 BUN 24 creatinine 1.4 to AST 79 ALT 65 Procalcitonin 0.08 ABG: PH 7.18 pCO2 102 pO2 153 EKG tracing personally reviewed by me-normal sinus rhythm. Intraventricular block. Poor R-wave progression. Chest x-ray film personally reviewed by me-large hiatal hernia. Cardiomegaly. Venous prominence. Assessment and plan: -Acute hypoxic and hypercapnic respiratory failure secondary to COPD exacerbation and CHF exacerbation: Improving Was on ventilator assist. Extubated January 18. Currently 5 L nasal cannula -Paroxysmal atrial fibrillation flutter, had an episode of rapid rate - Back in sinus rhythm Telemetry. Eliquis 5 mg twice a day. Lopressor 50 mg twice a day flecainide- discontinued. Cordarone. -Possible seizure due to cardiac arrest.. Keppra started and discontinued.. EEG negative for seizure activity -Critical care myopathy.: PTOT. -Possible aspiration pneumonia, culture positive for Citrobacter koseri IV Zosyn-completed course . Augmentin -Acute COPD exacerbation in a current smoker Albuterol 4 times a day.. Prednisone 15 mg. Nebulized Perforomist and Pulmicort, Spiriva. -Acute on Chronic congestive heart failure from systolic dysfunction EF 45-50%-better Lasix 40 mg daily -Hypothyroid Levothyroxine 125 g a day -Essential hypertension . Lopressor 50 mg twice a day -Cardiogenic shock: Better Taken off off levo fed -OG tube feeding-discontinued -Chronic nicotine dependence, cigarette smoker Nicotine patch -Bipolar disorder Zyprexa 20 mg daily at bedtime. -Dysphagia. Being followed by speech therapist Levels 3 chopped diet. [place] thick liquids. 1:1 supervision. -Full code Looking for placement. Oxygen 5 L. Discussed with patient. Discussed with field nurse case manager. Cutback prednisone to 50 mg
[2023-01-25] MEDS: OLANZapine 10 MG TAB PO SCH (22:05)
[2023-01-25] MEDS: LATANOPROST 0.005% OPHTH DROPS 2.5 ML BTL LEFT EYE SCH (22:06)
[2023-01-26 06:42] LABS: ALT 156 U/L (4-49); AST 57 U/L (17-59); African American GFR (CKD) >90 (>60 ml/min/1.73 sqM); Albumin 2.9 g/dL (3.5-5.0); Albumin/Globulin Ratio 1.1; Alkaline Phosphatase 131 U/L (38-126); Anion Gap 5 mmol/L; Blood Urea Nitrogen 27 mg/dL (9-20); Calcium 8.9 mg/dL (8.4-10.2); Carbon Dioxide 29 mmol/L (22-30); Chloride 103 mmol/L (98-107); Globulin 2.6 g/dL; Glucose 95 mg/dL (74-99); Magnesium 2.1 mg/dL (1.6-2.3); Non-African American GFR(CKD) 89 (>60 ml/min/1.73 sqM); Potassium 4.3 mmol/L (3.5-5.1); Sodium 137 mmol/L (137-145); Total Protein 5.5 g/dL (6.3-8.2)
[2023-01-26] MEDS ORDERED: predniSONE 10 MG TAB PO SCH (09:00)
[2023-01-26] MEDS ORDERED: predniSONE 5 MG TAB PO SCH (09:00)
[2023-01-26] MEDS: FUROSEMIDE 40 MG TAB PO SCH (09:14)
[2023-01-26] MEDS: METOPROLOL TARTRATE 50 MG TAB PO SCH (09:14)
[2023-01-26] MEDS: SENNOSIDES-DOCUSATE SODIUM 1 EACH TAB PO SCH (09:14)
[2023-01-26] MEDS: AMOXIC-POT CLAV 875-125MG 1 EACH TAB PO SCH (09:14)
[2023-01-26] MEDS: AMIODARONE 100 MG TAB PO SCH (09:14)
[2023-01-26] MEDS: LEVOTHYROXINE 125 MCG TAB PO SCH (09:15)
[2023-01-26] MEDS: APIXABAN 5 MG TAB PO SCH (09:15)
[2023-01-26] MEDS: MIDODRINE 5 MG TAB PO SCH (09:15)
[2023-01-26] MEDS: ASPIRIN 81 MG PO SCH (09:15)
[2023-01-26] MEDS: GABAPENTIN 100 MG CAP PO SCH (09:15)
[2023-01-26] MEDS: PANTOPRAZOLE 40 MG TABLET PO SCH (09:15)
[2023-01-26] MEDS: FORMOTEROL FUMARATE 20 MCG/2 ML NEBU INHALATION SCH (09:21)
[2023-01-26] MEDS: TIOTROPIUM 2.5 MCG INHALER INHALATION SCH (09:21)
[2023-01-26] MEDS: BUDESONIDE 1 MG/2 ML NEBU INHALATION SCH (09:21)
[2023-01-26] MEDS: ALBUTEROL HFA INHALER INHALATION SCH ×3 (09:21→15:20)
--- NOTE | 2023-01-26 09:54 | P.PN ---
Subjective Progress Note Date: 01/26/23 Principal diagnosis: Cardiopulmonary arrest The patient is a 67-year-old gentleman who we are asked to be seen in the intensive care unit for further cardiac evaluation. Currently the patient is intubated and he is on mechanical ventilation. The history was taken from the chart as well as from the nurse taking care of the patient. Apparently the patient presented to the emergency department with progressive dyspnea of unknown duration. He is known to have chronic obstructive pulmonary disease and also paroxysmal atrial fibrillation and cardiomyopathy. In the emergency department he was evaluated and during his stay he did have an episode of cardiopulmonary arrest with PEA. The downtime was about 5 minutes. Subsequently the patient was intubated and he was admitted to the intensive care unit. Currently he is on norepinephrine. He is in normal sinus mechanism. He was on flecainide. No indication that he was experiencing any symptoms of chest pain or chest discomfort before but he presented with increasing shortness of breath. He is known to have severe COPD and he is on oxygen at 3 L. The chest x-ray showed findings consistent with chronic disease/COPD. No troponin was performed. The rest of his discomfort overall appeared unremarkable. 01/13/2023 The patient was seen this morning. He continues to be intubated on mechanical ventilation. Currently there is a concern about an exit encephalopathy and he is in process computed tomography scan. He is now in sinus mechanism with sinus bradycardia. I'm going to DC amiodarone IV and start the patient on amiodarone by mouth 200 mg twice a day the Cardizem was stopped yesterday. Hold any antic oagulation at this point. Acute coronary syndrome was ruled out with 3 serial troponin came in to be unremarkable January 142022 The patient was seen this morning. He continues to be intubated on mechanical ventilation but he is off vasopressors was norepinephrine. Urine output has been better. He has been maintaining normal sinus mechanism and currently is currently on beta jazmin as well as he is on amiodarone and he is also on oral anticoagulation. He is also on flecainide. The last echo showed an EF between 45-50%. January 222022 The patient was seen and evaluated this morning. Overall he seems to be stable beside marginally low blood pressure and heart rate. The dose of beta jazmin yesterday and I'm going to decrease the dose of amiodarone and also decrease the dose of Lasix. He continues to be on oxygen at 2 L. On examination he does have diminished breathing sounds bilaterally and mild bilateral expiratory wheezing but no lower extremities edema noted. He is on anticoagulation for the atrial fibrillation. 01/23/2023 The patient was seen this morning. He remains hypoxic requiring high flow oxygen. Urine output has been low. On examination he does have diminished breathing sounds bilaterally. I am going to increase the dose of Lasix from 20 mg by mouth daily to 40 mg by mouth daily. His pressure has been within normal limits. On examination he does have diminished breathing sounds bilaterally with bilateral and mostly on the right hand edema. January 242022 The patient was seen and evaluated this morning. He remains stable overall from the cardiac standpoint overview. He continues to be on 6 L oxygen. Urine output is a slightly better after the dose of Lasix has increased yesterday from 20 mg to 40 mg. He reports no pain in the chest. He continues to have shortness of breath which has not changed compared to before. No dizziness or lightheadedness and no feeling of heart racing or fluttering. On examination he does have diminished breathing sounds bilaterally. January 252022 The patient was seen and evaluated this morning. Overall he remains stable. He is a slightly lethargic this morning. On examination he does have stable vital signs with regular rhythm and distant heart sounds and diminished breathing sounds bilaterally was mild bilateral expiratory wheezing. He has no lower extremity edema noted. He does have chronic skin changes January 262022 The patient was seen this morning. He is definitely more awake and not as lethargic as yesterday. Clinically he seems to be stable. From the cardiac vascular standpoint of view, the patient can be discharged into an extended-care facility. No need for any further cardiac workup at this point. We'll follow- up with the patient on when necessary case Assessment Cardiopulmonary arrest with PEA Known severe COPD/chronic hypoxic respiratory failure Paroxysmal atrial fibrillation Plan Continue the current medical regimen Continue oral anticoagulation Follow-up with the patient on when necessary came Objective - Vital Signs Vital signs: Vital Signs Temp 98.1 F 01/26/23 06:57 Pulse 80 01/26/23 09:37 Resp 18 01/26/23 07:30 BP 120/83 01/26/23 06:57 Pulse Ox 93 L 01/26/23 09:26 FiO2 50 01/26/23 04:06 Intake & Output 01/25/23 01/26/23 01/26/23 18:59 06:59 18:59 Intake Total 300 240 Output Total 250 500 Balance 50 -260 Intake: Oral 300 240 Output: Urine 250 500 Other: Voiding Method Indwelling Catheter Indwelling Catheter Indwelling Catheter # Bowel Movements 1 ABP, PAP, CO, CI - Last Documented Arterial Blood Pressure 130/75 - Labs CBC & Chem 7: 01/19/23 06:00 01/26/23 06:02 Labs: Abnormal Lab Results - Last 24 Hours (Table) 01/26/23 Range/Units 06:02 BUN 27 H (9-20) mg/dL ALT 156 H (4-49) U/L Alkaline Phosphatase 131 H (38-126) U/L Total Protein 5.5 L (6.3-8.2) g/dL Albumin 2.9 L (3.5-5.0) g/dL
--- NOTE | 2023-01-26 12:05 | P.PN ---
Subjective Progress Note Date: 01/26/23 This is 67-year-old male patient with a known history of atrial fibrillation anticoagulated with Eliquis, chronic obstructive pulmonary disease, oxygen dependent respiratory failure, hyperlipidemia, hypertension, hypothyroidism, bipolar disorder, chronic and ongoing tobacco dependence, marijuana use. He was brought into the emergency room yesterday by family around noontime for increasing shortness of breath and chest wall pain. The patient had been falling approximately 3 times in the past 3 weeks. He was quite short of breath and dyspneic with exertion. He was originally being admitted to the regular medical floor when prior to his transfer from the emergency department he developed a cardiac arrest requiring approximately 5 minutes of CPR including 3 A of epinephrine and 2 units Amps of bicarb. He was also having some nonsustained VT and was given amiodarone bolus. He was intubated and transferred to the intensive care unit. He is seen today in consultation. He is currently on the mechanical ventilator in assist control mode at a rate of 24, tidal out of 450, FiO2 80% and a PEEP of 5. Morning blood gases revealed a PaO2 of 97, pCO2 67, pH 7.35 on the 80% FiO2. His x-ray reveals persistent large hiatal hernia. Persistent bibasilar opacities. Echocardiogram revealed left ventricular systolic function with ejection fraction 45-50%. Sputum culture pending. White count 13.9. Hemoglobin 16.2. Platelets 123. Sodium 138. Potassium 3.7. Bicarb 38. BUN 20. Creatinine 1.19. Glucose 136. He is sedated with propofol at 40 mcg/kg/m. Requiring norepinephrine at 4.3 mcg/m. He's initiated on bronchodilators, IV Solu-Medrol. Anticoagulated with Eliquis. NicoDerm patch in place. The patient is seen today 01/13/2023 in follow-up in the intensive care unit. He remains intubated on mechanical ventilator in assist control at a rate of 24, tidal volume 450, FiO2 50% and a PEEP of 5. Morning blood gases revealed a pO2 of 66, pCO2 52, pH 7.44. He is sedated on propofol 20 mcg/kg/m. Norepinephrine at 15 mcg/m. Lactated Ringer's at 75 ML's per hour. He is being nourished with vital 8. Her rate of 30 with a goal of 60. He did have some issues with atrial fibrillation and is currently in sinus rhythm. Chest x-ray revealed stable bibasilar atelectasis with a small left effusion. Endotracheal and gastric tube secured in place. Left internal CVP line in place. Sputum cultures pending. White count 17.9. Hemoglobin 16.2. Platelets 159. Sodium 136. Potassium 3.9. Bicarb 35. BUN 23. Creatinine 1.03. Glucose 146. ProBNP 1150. Troponin 0.016. He is currently in a +2.5 L balance. He is maintained on albuterol inhalations, Pulmicort and Perforomist inhalations, IV Solu-Medrol. NicoDerm patch in place. Anticoagulated with Eliquis. The patient is seen today 01/14/2023 in follow-up in the intensive care unit. He remains intubated and on the mechanical ventilator. Currently in assist control mode at a rate of 24, tidal and 450, FiO2 70% and a PEEP of 10. Morning blood gases revealed a P O2 of 68, pCO2 51, pH 7.45. He is sedated on propofol at 20 mcg/kg/m. Lactated Ringer's at 75 ML's per hour. Currently the norepinephrine is off. He is receiving vital HP at 60 ML's per hour which is goal for nutritional support. Chest x-ray reveals stable bibasilar atelectasis with a small left effusion. DT scan of the brain was negative. No mass effect or midline shift. No intracranial hemorrhage. Sputum culture pending. Pro-calcitonin 0.08. White count 15.6. Hemoglobin 15.1. Sodium 139. Potassium 4.3. Bicarb 30. BUN 30. Creatinine 1.07. Glucose 131. Currently in a +1.5 L balance. He remains on Pulmicort and Perforomist inhalations, albuterol inhalations, IV Solu-Medrol. NicoDerm patch in place. Anticoagulated with Eliquis. The patient is seen today 01/22/2023 in follow-up on the regular medical floor. He was subsequently extubated and transferred out of the ICU. He is currently awake and alert. Oriented times one. He is on 6 L high flow nasal cannula. Alternating with BiPAP 12/6 and 50% FiO2. His sputum was positive for Citrobacter koseri. Sodium 143. Potassium 4.1. Bicarb 28. BUN 48. Creat inine 1.0. He remains on amiodarone. Anticoagulated with Eliquis. Continued on bronchodilators. Continued on diuretics. Antibiotics in the form of Zosyn. NicoDerm patch in place. He is working with PT/OT. The plan is for subacute rehab at discharge. The patient is seen today 01/23/2023 in follow-up on the regular medical floor. He is sitting up in bed. Awake and alert in no acute distress. He is tolerating his meals well. Currently maintaining O2 saturations in the upper 90s on 5 L high flow nasal cannula. MRI of the brain revealed mild diffuse cerebral atrophy and mild to minimal chronic small vessel ischemic change. No MRI evidence of recent infarct. Mild to borderline moderate compression type fracture T1 level is presumed chronic and age. Spondylolisthesis and degenera tive changes C5 through C6. He is continued on bronchodilators, antibiotics in the form of Zosyn. Anticoagulated with Eliquis. NicoDerm patch in place. The patient is seen today 01/24/2023 in follow-up on the regular medical floor. He is currently sitting up in bed. Awake and alert in no acute distress. Maintaining O2 saturations in the 90s on 4 L/m per nasal cannula. Sputum culture from 01/11/2023 was positive for Citrobacter koseri. He remains on Zosyn. Remains on bronchodilators. Anticoagulated with Eliquis. The patient is seen today 01/25/2023 in follow-up on the regular medical floor. He remains awake and alert in no acute distress. He's been up to the chair with assistance. He is maintaining good O2 saturations in the 90s on 5 L high flow nasal cannula. He remains on Pulmicort and Perforomist inhalations, albuterol and Spiriva inhalations. Prednisone taper. Antibiotics in the form of Augmentin. NicoDerm patch in place. Anticoagulated with Eliquis. The patient is seen today 01/26/2023 in follow-up on the regular medical floor. He is resting comfortably in bed. Awake and alert in no acute distress. He is currently on 4 L nasal cannula and maintaining O2 saturations in the 90s. Sodium 137. Potassium 4.3. Bicarb 29. BUN 27. Creatinine 0.90. AST 57. ALT 156. He remains on bronchodilators, Augmentin, prednisone taper. Anticoagulated with Eliquis. Remains on oral diuretics. Objective - Vital Signs Vital signs: Vital Signs Temp 98.1 F 01/26/23 06:57 Pulse 80 01/26/23 09:37 Resp 18 01/26/23 07:30 BP 120/83 01/26/23 06:57 Pulse Ox 93 L 01/26/23 09:26 FiO2 50 01/26/23 04:06 Intake & Output 01/25/23 01/26/23 01/26/23 18:59 06:59 18:59 Intake Total 300 240 Output Total 250 500 Balance 50 -260 Intake: Oral 300 240 Output: Urine 250 500 Other: Voiding Method Indwelling Catheter Indwelling Catheter Indwelling Catheter # Bowel Movements 1 ABP, PAP, CO, CI - Last Documented Arterial Blood Pressure 130/75 - Exam GENERAL EXAM: Alert 67-year-old male patient, on 4 L nasal cannula, comfortable in no apparent distress. HEAD: Normocephalic. EYES: Normal reaction of pupils, equal size. NOSE: Clear with pink turbinates. THROAT: No erythema or exudates. NECK: No masses, no JVD. CHEST: No chest wall deformity. LUNGS: Equal air entry with few scattered rhonchi. CVS: S1 and S2 normal with no audible murmur, regular rhythm. ABDOMEN: No hepatosplenomegaly, normal bowel sounds, no guarding or rigidity. SPINE: No scoliosis or deformity SKIN: No rashes CENTRAL NERVOUS SYSTEM: Alert, tone is normal in all 4 extremities. EXTREMITIES: There is no peripheral edema. No clubbing, no cyanosis. Peripheral pulses are intact. - Labs CBC & Chem 7: 01/19/23 06:00 01/26/23 06:02 Labs: Abnormal Lab Results - Last 24 Hours (Table) 01/26/23 Range/Units 06:02 BUN 27 H (9-20) mg/dL ALT 156 H (4-49) U/L Alkaline Phosphatase 131 H (38-126) U/L Total Protein 5.5 L (6.3-8.2) g/dL Albumin 2.9 L (3.5-5.0) g/dL Assessment and Plan Assessment: In-hospital cardiac arrest requiring CPR and subsequent return of spontaneous circulation within approximately 5 minutes. It is likely that this started off with a respiratory arrest and following that the patient had a cardiac arrest/asystole. The patient remains stable on oral amiodarone at a dose of 100 mg twice a day. No further arrhythmias has been noted and the patient is currently hemodynamically stable. Acute hypoxemic respiratory failure secondary to above requiring intubation and mechanical ventilatory support on 01/11/2023 and subsequently extubated on 01/18/2023. Currently on 4 L nasal cannula. Encephalopathy post cardiac arrest and the patient is improving, currently on no sedation, no focal neurological deficits and he is also communicating. CAT scan of the brain that was done on 01/13/2023 showed no acute abnormalities. The patient is fully alert and awake and communicating. Acute bilateral pneumonia with multifocal by the pulmonary infiltrate and the patient is currently on Augmentin. The sputum sample was positive for Citrobacter koseri Hypotension requiring pressor support, improved and off norepinephrine History of oxygen dependent chronic obstructive pulmonary disease Chronic and ongoing tobacco dependence Chronic atrial fibrillation, anticoagulated with Eliquis History of hypertension Hyperlipidemia Hypothyroidism History of bipolar disorder History of anxiety/depression History of marijuana use Plan: The patient was seen and evaluated Medications and labs reviewed Remains on Augmentin Continue bronchodilators, prednisone taper Wean down the FiO2 as tolerated Plan is for subacute rehabilitation at discharge We will see as needed I have personally seen and examined the patient, performed the documentation and the assessment and plan as written. Number of minutes spent on the visit: 10.
--- NOTE | 2023-01-26 12:58 | P.DS ---
Providers Date of admission: 01/11/23 15:24 Expected date of discharge: 01/26/23 Attending physician: Олег Sanon Consults: 01/11/23 15:24 Consult Physician Routine Consulting Provider: Dickson Steve Consult Reason/Comments: COPD, CHF, icu management Do you want consulting provider notified?: Yes 01/11/23 18:55 Consult Physician Routine Consulting Provider: Pj Jasso Consult Reason/Comments: CHF Do you want consulting provider notified?: Yes 01/12/23 17:40 Consult Physician Stat Consulting Provider: Chuy Steve Consult Reason/Comments: seizure Do you want consulting provider notified?: Yes 01/22/23 17:04 Consult Physician Routine Consulting Provider: Michael Sheets Consult Reason/Comments: compression fracture cervical spine Do you want consulting provider notified?: Yes Primary care physician: Josue Danielsmley [facility] Course: Chief Complaint: Shortness of breath, chest pain This is a 67-year-old patient who follows with Dr. Alvin Villela. Chronic stable medical conditions include hyperlipidemia, hypothyroid, bipolar, atrial fibrillation. Patient is a smoker. COPD, CHF, bipolar, hiatal hernia Patient presented to the ER, brought in by the family because of shortness of breath and chest pain. In the last 3 weeks apparently patient fallen about 3 times. No fever no chills. Some palpitations. Increasing lower extremity edema. Nonproductive cough. Late in the afternoon patient was found to be in PEA. Code team was called. Patient did require epinephrine. intubated. FiO2 100 and PEEP of 5. Patient have a broad complex tachycardia. Felled Seam Operator [employer] Dr. Steve was informed. Admitted with acute COPD exacerbation, acute CHF exacerbation, acute hypoxic hypercapnic respiratory failure. Intubated. 01/12/2023: ICU. Drips include IV propofol, Levophed. Patient sedated. Telemetry shows sinus rhythm. FiO2 70 to PEEP of 5. Patient seen by weight shifter Dr. Valdes. IV Lasix has been discontinued. IV fluids. 01/13/2023: ICU. Intubated. FiO2 70 PEEP of 10. Drips include propofol and norepinephrine. 2 feeding at 40 mL an hour. Patient went into A. fib with rapid ventricle rate yesterday. Was put on IV Cardizem and IV amiodarone. Went back into sinus rhythm. There was some concern about neuro status change for which neurology was consulted, pending computed tomography scan. No focal w eakness. His started on IV Keppra per neurology 01/14/2023: ICU. Intubated. FiO2 70 PEEP of 10. Patient is off levo fed since this morning. On IV propofol. OG tube for feeding at 60 mL an hour. Significant secretions checks x-ray showing infiltrate. His started on IV Zosyn. and daughter the bedside. Discussed. Eliquis. Cordarone. IV Solu-Medrol. IV Keppra. 01/15/2023: ICU. Intubated. FiO2 70 PEEP of 10. 2 feeding. Telemetry sinus rhythm. OG tube feeding. Patient has remained off levo fed. IV Zosyn. IV Keppra. 01/16/2023: ICU. Intubated. FiO2 50 PEEP of 7. Sinus rhythm. Sedation holiday today. Getting 2 feeding. 01/17/2023: ICU. Intubated. FiO2 50 PEEP of 7. OG tube feeding. At 30 mL an hour. Sinus rhythm. Oral amiodarone. Eliquis. IV Lasix 20 mg every 12. IV Keppra. IV Zosyn. Remains off levo fed. Off propofol. 01/18/2023: ICU. Patient extubated this morning. Currently on 12 L. Lethargic but following commands. Sinus rhythm. at the bedside. Congested cough. IV Keppra. IV Zosyn. IV Lasix 01/19/2023: ICU. Patient on Ventimask at 6 L.. Diet. Sinus rhythm. Weak in all the limbs. PTOT consulted. 01/20/2023 Patient remains in the ICU very weak and confused, patient today he did not answer questions and he does not follow commands he opens eyes spontaneously before go back to sleep, he was still on CPAP machine. Also he was very short of breath which limits his ability to communicate. Hemodynamically and labs are stable. He has Shook catheter in He remains on Zosyn, prednisone 20 mg, home dose of Eliquis, aspirin 81 mg, Keppra, oral Lasix 40 mg daily and oral amiodarone 200 mg 01/21/2023 Patient today is more awake and interactive but very weak and lethargic, he can hardly move his extremities: Without dyspnea secondary to his critical care myopathy, at the same time his blood pressure on the low side and is on several medications including Keppra. As reported patient with known history of seizure prior to admission and Keppra dose was lowered 750 milligrams down to 500 mg twice a day. Blood pressure was on the low site 90/60 and he is on metoprolol with dose was lowered 50 mg from 75 mg twice a day. his blood pressure into 81/60, discussed with staff for close monitoring. Shook catheter was discontinued, bladder scan was checked was 270 mm Patient remains on Zosyn, prednisone 20 mg and Eliquis, Aspirin 81. Patient was transferred to the general medical floor today 01/23/2023: I resumed the care of the patient today from [facility]. Sitting up in bed. Feeling better. Slight cough. On 5 L nasal cannula. Eating close to 100%. Spoke to classification case manager. Looking at ECF washes and authorization. Patient is requiring maximum/2 people assist. For stand up and go to the chair. Incentive spirometry ordered. 01/24/2023: Patient was stable to be discharged. donor relations manager looking for a place to rehab. Eating well. Changed over to oral antibiotic. Breathing better. FiO2 decreased to 3 L. 01/25/2023: 5 nasal cannula. Eating well. Patient remains maximum assist. Spoke to classification case manager. Currently no place available for rehab. 01/26/2023: Oral intake good. Remains maximum assist. Some shortness of breath. Discussed with classification case manager. Accepted at rehab. FiO2 down to 3 - 5L. And taper off prednisone over next 15 days. Patient to follow outpatient with cardiology and pulmonary. Discussion and discharge planning more than 35 minutes Past medical history to include: COPD, hyperlipidemia, hypothyroid, bipolar, atrial fibrillation, bipolar, CHF, he had hernia Social history: Lives with sister Marifer, smokes a pack a day for many years, no alcohol Physical examination: VITAL SIGNS: 98.1, 60, 18, 120/83, 97% on 5 L GENERAL: Reclining, comfortable EYES: Pupils equal. Conjunctiva normal. HEENT: External appearance of nose and ears normal, oral cavity grossly normal. NECK: JVD is able to assess; masses not palpable. HEART: First and second heart sounds are normal; edema present LUNGS: Respiratory rate increased; decreased breath sounds , coarse breath sounds ABDOMEN: Soft, nontender, liver spleen not palpable, no masses palpable. PSYCH: Answering questions appropriately. MUSCULOSKELETAL:No Clubbing/cyanosis;muscles-grossly intact. Evidence of OA NEUROLOGICAL: Decreased power in the limbs INVESTIGATIONS, reviewed in the clinical context: 01/26/2023: Potassium 4.3 creatinine 0.9 AST 156 alkaline phosphatase 131 01/19/2023: White count 10.8 hemoglobin 15.9 platelets 152 Sputum culture: Citrobacter koseri EEG: Encephalopathy. No seizure activity. 2-D echocardiogram: EF 45-50%. Right ventricle dilatation, right ventricular hypertrophy 01/12/2023: White count 13.9 hemoglobin 16.2 platelets 123 potassium 3.7 creatinine 1.19 cortisol 22 TSH 0.548 White count 10.6 hemoglobin 16.4 platelets 153 potassium 3.1 BUN 24 creatinine 1.4 to AST 79 ALT 65 Procalcitonin 0.08 ABG: PH 7.18 pCO2 102 pO2 153 EKG tracing personally reviewed by me-normal sinus rhythm. Intraventricular block. Poor R-wave progression. Chest x-ray film personally reviewed by me-large hiatal hernia. Cardiomegaly. Venous prominence. Assessment and plan: -Acute hypoxic and hypercapnic respiratory failure secondary to COPD exacerbation and CHF exacerbation: Improving Was on ventilator assist. Extubated January 18. Currently 5 L nasal cannula -Paroxysmal atrial fibrillation flutter, had an episode of rapid rate - Back in sinus rhythm Telemetry. Eliquis 5 mg twice a day. Lopressor 50 mg twice a day flecainide- discontinued. Cordarone. -Possible seizure due to cardiac arrest.. Keppra started and discontinued.. EEG negative for seizure activity -Critical care myopathy.: PTOT. -Possible aspiration pneumonia, culture positive for Citrobacter koseri IV Zosyn-completed course . Augmentin-completed -Acute COPD exacerbation in a current smoker Albuterol 4 times a day.. Prednisone 15 mg. Nebulized Perforomist and Pulmicort, Spiriva. -Acute on Chronic congestive heart failure from systolic dysfunction EF 45-50%-better Lasix 40 mg daily -Hypothyroid Levothyroxine 125 g a day -Essential hypertension . Lopressor 50 mg twice a day -Cardiogenic shock: Better Taken off off levo fed -OG tube feeding-discontinued -Chronic nicotine dependence, cigarette smoker Nicotine patch -Bipolar disorder Zyprexa 20 mg daily at bedtime. -Dysphagia. Being followed by speech therapist Levels 3 chopped diet. [place] thick liquids. 1:1 supervision. Follow outpatient with speech therapist. -Full code Disposition: ECF/rehab at [facility] Plan - Discharge Summary Discharge Rx Participant: No New Discharge Prescriptions: New Amiodarone [Cordarone] 100 mg PO DAILY tab Nicotine 21Mg/24Hr Patch [Habitrol] 1 patch TRANSDERM DAILY patch predniSONE 5 mg PO DIRECTED #30 tab Midodrine [ProAmatine] 5 mg PO AC-TID tab lisinopriL [Zestril] 2.5 mg PO BID tab bisacodyL [Dulcolax] 10 mg RECTAL DAILY PRN suppositor PRN Reason: Constipation Metoprolol Tartrate [Lopressor] 50 mg PO BID tab Sennosides-Docusate Sodium [Senokot-S] 2 each PO BID tab Acetaminophen Tab [Tylenol] 650 mg PO Q4HR PRN tab PRN Reason: Mild Pain Or Fever > 100.5 Continue Levothyroxine Sodium 125 mcg PO DAILY Latanoprost/Pf [Latanoprost 0.005% Eye Drop] 1 drop LEFT EYE HS Loratadine [Claritin] 10 mg PO DAILY Aspirin EC [Ecotrin Low Dose] 81 mg PO DAILY Apixaban [Eliquis] 5 mg PO BID Fluticasone/Vilanterol [Breo Ellipta 200-25 Mcg Inhaler] 1 puff INHALATION RT-DAILY Tiotropium Daisy [Spiriva Handihaler] 1 puff INHALATION RT-DAILY Gabapentin [Neurontin] 200 mg PO TID #18 cap Albuterol Sulfate [Albuterol Sulfate Hfa] 1 puff PO RT-Q4H PRN PRN Reason: Shortness Of Breath Pantoprazole Sodium [Protonix] 40 mg PO DAILY Albuterol Nebulized [Ventolin Nebulized (Accuneb)] 3 ml INHALATION RT-Q6H OLANZapine [ZyPREXA] 20 mg PO HS Changed Furosemide [Lasix] 40 mg PO DAILY #0 Discontinued Metoprolol Tartrate [Lopressor] 75 mg PO BID 30 Days #60 tab PARoxetine HCL [Paxil] 30 mg PO HS Minocycline [Minocin] 50 mg PO Q12HR Flecainide [Tambocor] 50 mg PO BID Discharge Medication List Latanoprost/Pf [Latanoprost 0.005% Eye Drop] 1 drop LEFT EYE HS 08/18/20 [History] Levothyroxine Sodium 125 mcg PO DAILY 08/18/20 [History] Albuterol Sulfate [Albuterol Sulfate Hfa] 1 puff PO RT-Q4H PRN 04/01/22 [History] Apixaban [Eliquis] 5 mg PO BID 04/01/22 [History] Aspirin EC [Ecotrin Low Dose] 81 mg PO DAILY 04/01/22 [History] Loratadine [Claritin] 10 mg PO DAILY 04/01/22 [History] Albuterol Nebulized [Ventolin Nebulized (Accuneb)] 3 ml INHALATION RT-Q6H 01/11/23 [History] Fluticasone/Vilanterol [Breo Ellipta 200-25 Mcg Inhaler] 1 puff INHALATION RT- DAILY 01/11/23 [History] OLANZapine [ZyPREXA] 20 mg PO HS 01/11/23 [History] Pantoprazole Sodium [Protonix] 40 mg PO DAILY 01/11/23 [History] Tiotropium Daisy [Spiriva Handihaler] 1 puff INHALATION RT-DAILY 01/11/23 [History] Acetaminophen Tab [Tylenol] 650 mg PO Q4HR PRN tab 01/26/23 [Rx] Amiodarone [Cordarone] 100 mg PO DAILY tab 01/26/23 [Rx] Furosemide [Lasix] 40 mg PO DAILY #0 01/26/23 [Rx] Gabapentin [Neurontin] 200 mg PO TID #18 cap 01/26/23 [Rx] Metoprolol Tartrate [Lopressor] 50 mg PO BID tab 01/26/23 [Rx] Midodrine [ProAmatine] 5 mg PO AC-TID tab 01/26/23 [Rx] Nicotine 21Mg/24Hr Patch [Habitrol] 1 patch TRANSDERM DAILY patch 01/26/23 [Rx] Sennosides-Docusate Sodium [Senokot-S] 2 each PO BID tab 01/26/23 [Rx] bisacodyL [Dulcolax] 10 mg RECTAL DAILY PRN suppositor 01/26/23 [Rx] lisinopriL [Zestril] 2.5 mg PO BID tab 01/26/23 [Rx] predniSONE 5 mg PO DIRECTED #30 tab 01/26/23 [Rx] Follow up Appointment(s)/Referral(s): Rainer Bazzi MD [STAFF PHYSICIAN] - 1 Week Oswald Maher MD [STAFF PHYSICIAN] - 1 Week Josue Villela MD [Primary Care Provider] - 1-2 days Activity/Diet/Wound Care/Special Instructions: Daniel
[2023-01-26] MEDS: NICOTINE 21MG/24HR PATCH TRANSDERM SCH (13:19)
[2023-01-26 13:20] VITALS: BP 82/55; PULSE 61; RESP 16; TEMP 97.4
--- NOTE | 2023-01-26 14:16 | FL ---
Modified barium swallow. Consistencies administered: Thin, pudding, chopped, and cracker consistencies. No tracheal aspiration . Transient silent laryngeal penetration with thin consistency. No significant vallecular or piriform retention. Fluoro time: 1 minute 39 seconds No images were sent to PACS. Please see speech pathology report.
== END 2023-01-26 16:26 | DRG 207 ==
LOC: EC 11:57 → 4SSUR 15:24 → 2SICU 17:47 → 4SSUR 01-21 11:37
PROVIDERS: ADMIT Hospitalist; ATTEND Hospitalist
PROC: 5A1955Z Respiratory Ventilation, Greater than 96 Consecutive Hours (ICD-10-PCS; principal; 2023-01-11)
PROC: 5A12012 Performance of Cardiac Output, Single, Manual (ICD-10-PCS; 2023-01-11)
PROC: 0BH17EZ Insertion of Endotracheal Airway into Trachea, Via Natural or Artificial Opening (ICD-10-PCS; 2023-01-11)
PROC: 3E033XZ Introduction of Vasopressor into Peripheral Vein, Percutaneous Approach (ICD-10-PCS; 2023-01-11)
PROC: 0D9670Z Drainage of Stomach with Drainage Device, Via Natural or Artificial Opening (ICD-10-PCS; 2023-01-11)
PROC: 02HV33Z Insertion of Infusion Device into Superior Vena Cava, Percutaneous Approach (ICD-10-PCS; 2023-01-12)
PROC: 03HY32Z Insertion of Monitoring Device into Upper Artery, Percutaneous Approach (ICD-10-PCS; 2023-01-12)
PROC: 4A133B1 Monitoring of Arterial Pressure, Peripheral, Percutaneous Approach (ICD-10-PCS; 2023-01-12)
PROC: 4A133J1 Monitoring of Arterial Pulse, Peripheral, Percutaneous Approach (ICD-10-PCS; 2023-01-12)
PROC: 3E0G76Z Introduction of Nutritional Substance into Upper GI, Via Natural or Artificial Opening (ICD-10-PCS; 2023-01-12)
PROC: 5A09557 Assistance with Respiratory Ventilation, Greater than 96 Consecutive Hours, Continuous Positive Airway Pressure (ICD-10-PCS; 2023-01-18)
PROC: 05HF33Z Insertion of Infusion Device into Left Cephalic Vein, Percutaneous Approach (ICD-10-PCS; 2023-01-19)
DX: J96.21 Acute and chronic respiratory failure with hypoxia (principal); I46.9 Cardiac arrest, cause unspecified; J69.0 Pneumonitis due to inhalation of food and vomit; G93.41 Metabolic encephalopathy; I50.23 Acute on chronic systolic (congestive) heart failure; J15.6 Pneumonia due to other Gram-negative bacteria; G72.81 Critical illness myopathy; N17.9 Acute kidney failure, unspecified; G93.1 Anoxic brain damage, not elsewhere classified; I47.20 Ventricular tachycardia, unspecified; I42.9 Cardiomyopathy, unspecified; M48.54XA Collapsed vertebra, not elsewhere classified, thoracic region, initial encounter for fracture; I48.92 Unspecified atrial flutter; J98.11 Atelectasis; J43.9 Emphysema, unspecified; J96.22 Acute and chronic respiratory failure with hypercapnia; I11.0 Hypertensive heart disease with heart failure; I95.9 Hypotension, unspecified; R56.9 Unspecified convulsions; I48.0 Paroxysmal atrial fibrillation; F31.9 Bipolar disorder, unspecified; I70.0 Atherosclerosis of aorta; I44.0 Atrioventricular block, first degree; K44.9 Diaphragmatic hernia without obstruction or gangrene; E03.9 Hypothyroidism, unspecified; M19.90 Unspecified osteoarthritis, unspecified site; H40.9 Unspecified glaucoma; E78.5 Hyperlipidemia, unspecified; I34.81 Nonrheumatic mitral (valve) annulus calcification; M47.812 Spondylosis without myelopathy or radiculopathy, cervical region; M43.12 Spondylolisthesis, cervical region; R00.1 Bradycardia, unspecified; I44.7 Left bundle-branch block, unspecified; K59.00 Constipation, unspecified; R13.10 Dysphagia, unspecified; R47.81 Slurred speech; F41.0 Panic disorder [episodic paroxysmal anxiety]; F17.210 Nicotine dependence, cigarettes, uncomplicated; L70.0 Acne vulgaris; R29.6 Repeated falls; Z99.81 Dependence on supplemental oxygen; Z79.01 Long term (current) use of anticoagulants; Z79.82 Long term (current) use of aspirin; Z79.51 Long term (current) use of inhaled steroids; Z79.890 Hormone replacement therapy; Z79.899 Other long term (current) drug therapy; Z91.81 History of falling
CPT/HCPCS: 36410; 36415; 36600; 70450; 70551; 71045; 71046; 71250; 72141; 74176; 74230; 76937; 80048; 80053; 81001; 82140; 82533; 82550; 82607; 82746; 82805; 83036; 83519; 83605; 83690; 83735; 83880; 84132; 84145; 84207; 84443; 84484; 85025; 85379; 85610; 85730; 87070; 87077; 87186; 87205; 92950; 93005; 93306; 94640; 94660; 94760; 95819; 96374; 96375; 99291

== ENCOUNTER 2023-04-16 11:55 | Day surgery (SDC) | payer MEDICARE, OTHER ==
[2023-04-13 09:36] VITALS: BMI 28.0
[~2023-04-16 11:55] MED LIST: ALPRAZolam 0.25 MG TAB PO PRN; ALPRAZolam 0.5 MG TAB PO PRN; ASPIRIN 325 MG TAB PO STA; NITROGLYCERIN SL TABS 0.4 MG TAB SUBLINGUAL PRN; SODIUM CHLORIDE 0.9% 1,000 ML in EMPTY BAG 1 BAG IV SCH
[2023-04-16 12:17] LABS: Glucose,Whole Blood 95 mg/dL (70-110)
[2023-04-16 12:28] VITALS: RESP 20
[2023-04-16] MEDS ORDERED: SODIUM CHLORIDE 0.9% 1,000 ML IV ONE (12:30)
[2023-04-16 12:34] LABS: Basophils % (A) 0 %; Eosinophils # (A) 0.1 k/uL (0-0.7); Eosinophils % (A) 1 %; HCT 51.1 % (39.0-53.0); HGB 16.4 gm/dL (13.0-17.5); Lymphocytes # (A) 2.2 k/uL (1.0-4.8); Lymphocytes % (A) 24 %; MCH 30.4 pg (25.0-35.0); MCHC 32.1 g/dL (31.0-37.0); MCV 94.5 fL (80.0-100.0); Mean Platelet Volume 10.6; Monocytes # (A) 0.5 k/uL (0-1.0); Monocytes % (A) 6 %; Neutrophils # (A) 6.2 k/uL (1.3-7.7); Neutrophils % (A) 68 %; Platelet Count 171 k/uL (150-450); RBC 5.41 m/uL (4.30-5.90); RDW 14.3 % (11.5-15.5); WBC 9.2 k/uL (3.8-10.6)
[2023-04-16 12:50] LABS: African American GFR (CKD) 81 (>60 ml/min/1.73 sqM); Anion Gap 6 mmol/L; Blood Urea Nitrogen 18 mg/dL (9-20); Carbon Dioxide 33 mmol/L (22-30); Chloride 101 mmol/L (98-107); Glucose 96 mg/dL (74-99); Non-African American GFR(CKD) 70 (>60 ml/min/1.73 sqM); Potassium 4.3 mmol/L (3.5-5.1); Sodium 140 mmol/L (137-145)
[2023-04-16] MEDS ORDERED: VERAPAMIL 2.5 MG/ML 2 ML AMP ONE (13:05)
[2023-04-16] MEDS ORDERED: fentaNYL (PF) 50 MCG/ML 2 ML AMP ONE (13:21)
[2023-04-16] MEDS ORDERED: fentaNYL (PF) 50 MCG/ML 2 ML AMP IV ONE (13:30)
[2023-04-16] MEDS ORDERED: MIDAZOLAM 2 MG/2 ML VIAL IV ONE (13:30)
[2023-04-16] MEDS ORDERED: LIDOCAINE 1% INJ 10MG/ML (5 ML VIAL-PF) SQ ONE (13:32)
[2023-04-16] MEDS ORDERED: VERAPAMIL SYRINGE (5 MG/10 ML) INTRAARTER ONE (13:32)
[2023-04-16] MEDS ORDERED: HEPARIN SODIUM 1,000 UN/ML (10ML VL) IV ONE (13:37)
[2023-04-16] MEDS ORDERED: IOPAMIDOL-370 100ML BTL INJ ONE ×2 (13:54)
--- NOTE | 2023-04-16 13:57 | P.CARDCATH ---
Description of Procedure: PROCEDURES PERFORMED: Left heart catheterization, bilateral coronary angiography, left ventriculogram INDICATION: Cardiomyopathy CONSENT:I have discussed the risks, benefits and alternative therapies for the above-mentioned procedure and for both sedation/analgesia as well as necessary blood product administration, if indicated, as they pertain to this patient. The patient has indicated understanding and acceptance of the risks and procedures discussed. PROCEDURE: After the risks, benefits and alternatives of the above mentioned procedure explained in detail with the patient, informed consent was obtained. Patient was taken to the catheterization lab and prepped and draped in usual fashion. 1% lidocaine was used to anesthetize the right radial artery. A 6- Sammarinese sheath was placed in the right radial artery using modified Seldinger technique. Left coronary angiography was performed with a 5-Sammarinese JL 3.5 catheter and right coronary angiography was performed with a 5-Sammarinese JR5 catheter in various views. A 5-Sammarinese FR5 catheter was inserted into the left ventricle and pressure measurements were obtained. Left ventriculogram was performed with a power injection in the [place] projection with a 6-Sammarinese pigtail catheter The right radial sheath was removed and a TR band was placed with hemostasis achieved. The patient tolerated the procedure well. Patient was transported back to the post catheterization holding area in stable condition. Conscious Sedation: Patient was monitored under the direct supervision of myself for conscious sedation using Versed and fentanyl for a total duration of 18 minutes HEMODYNAMICS: Aorta: 120/59 LV: 117/6, LVEDP 23 SELECTIVE CORONARY ARTERIOGRAPHY: LEFT MAIN: The left main is a large caliber vessel which bifurcates into the LAD and circumflex. There is no significant stenosis. LEFT ANTERIOR DESCENDING CORONARY ARTERY: LAD is a large caliber vessel which wraps around to the apex. There is a mid LAD 40% stenosis and otherwise mild luminal irregularities. LEFT CIRCUMFLEX CORONARY ARTERY: Left circumflex is a moderate caliber vessel without significant stenosis. RIGHT CORONARY ARTERY: The right coronary artery is a large caliber vessel which gives off a PDA and PLV branch and is the dominant vessel. There is a mid RCA 30% stenosis and otherwise mild luminal irregularities. LEFT VENTRICULOGRAM: Left ventricular ejection fraction 60-65% without wall motion abnormalities. FINAL IMPRESSION: 1. Mild to moderate CAD as described above including 30% RCA and 40% LAD stenosis. 2. Elevated left sided filling pressures 3. Left ventricular ejection fraction 60-65% PLAN: 1. Aggressive risk factor modification per most recent ACC/AHA guidelines. 2. Follow-up in the office in 1-2 weeks.
[2023-04-16 16:10] VITALS: BP 107/74; PULSE 62
== END 2023-04-16 16:11 | disposition home or self-care (01) ==
LOC: CATHCVL 11:55
PROVIDERS: ATTEND Internal Medicine
DX: I25.10 Atherosclerotic heart disease of native coronary artery without angina pectoris (principal); I42.9 Cardiomyopathy, unspecified; I48.0 Paroxysmal atrial fibrillation; I11.0 Hypertensive heart disease with heart failure; I50.9 Heart failure, unspecified; E78.5 Hyperlipidemia, unspecified; J44.9 Chronic obstructive pulmonary disease, unspecified; F17.210 Nicotine dependence, cigarettes, uncomplicated; I47.1 Supraventricular tachycardia; I46.9 Cardiac arrest, cause unspecified; Z82.49 Family history of ischemic heart disease and other diseases of the circulatory system; K44.9 Diaphragmatic hernia without obstruction or gangrene; Z79.01 Long term (current) use of anticoagulants; Z79.51 Long term (current) use of inhaled steroids; Z79.82 Long term (current) use of aspirin; Z79.899 Other long term (current) drug therapy
CPT/HCPCS: 93458; 99152; 80048; 85025; C1769; C1894; J2250; J2001; J3010; J1644; Q9967

== ENCOUNTER 2024-01-08 14:34 | Emergency (ER) | payer MEDICARE, OTHER ==
--- NOTE | 2024-01-08 15:33 | ED ---
SOB HPI - General Chief Complaint: Shortness of Breath Stated Complaint: SOB,hallucinations Time Seen by Provider: 01/08/24 15:13 Source: patient, family Mode of arrival: ambulatory Limitations: no limitations - History of Present Illness Initial Comments: This patient is a 68-year-old man who presents for evaluation of shortness of breath that he states has been getting worse over the past couple of days. He states that it has for the most part been exertional or present when he lies down. If he is at rest the dyspnea is not bad. Patient states he also noted some right upper chest pain going on over the past 2 hours. He states that it is sharp. It did not seem to be exertional. He has not had associated diaphoresis, nausea vomiting, palpitations or syncope. MD Complaint: shortness of breath Onset/Timin -: days(s) Severity: moderate Quality: sharp Consistency: constant Improves With: nothing Worsens With: lying flat, exertion Known History Of: COPD Associated Symptoms: chest pain Treatments Prior to Arrival: none - Related Data Home Oxygen Therapy: No Home Medications Medication Instructions Recorded Confirmed Latanoprost/Pf [Latanoprost 0.005% 1 drop LEFT EYE HS 08/18/20 04/16/23 Eye Drop] Levothyroxine Sodium 125 mcg PO DAILY 08/18/20 04/16/23 Albuterol Sulfate [Albuterol 1 puff PO RT-Q4H PRN 04/01/22 04/16/23 Sulfate Hfa] Apixaban [Eliquis] 5 mg PO BID 04/01/22 04/16/23 Aspirin EC [Ecotrin Low Dose] 81 mg PO DAILY 04/01/22 04/16/23 Loratadine [Claritin] 10 mg PO DAILY 04/01/22 04/16/23 Albuterol Nebulized [Ventolin 3 ml INHALATION RT-Q6H 01/11/23 04/16/23 Nebulized (Accuneb)] Fluticasone/Vilanterol [Breo 1 puff INHALATION RT-DAILY 01/11/23 04/16/23 Ellipta 200-25 Mcg Inhaler] OLANZapine [ZyPREXA] 20 mg PO HS 01/11/23 04/16/23 Pantoprazole Sodium [Protonix] 40 mg PO DAILY 01/11/23 04/16/23 Tiotropium Withams [Spiriva 1 puff INHALATION RT-DAILY 01/11/23 04/16/23 Handihaler] Previous Rx's Medication Instructions Recorded Acetaminophen Tab [Tylenol] 650 mg PO Q4HR PRN tab 01/26/23 Amiodarone [Cordarone] 100 mg PO DAILY tab 01/26/23 Furosemide [Lasix] 40 mg PO DAILY #0 01/26/23 Gabapentin [Neurontin] 200 mg PO TID #18 cap 01/26/23 Metoprolol Tartrate [Lopressor] 50 mg PO BID tab 01/26/23 Midodrine [ProAmatine] 5 mg PO AC-TID tab 01/26/23 Nicotine 21Mg/24Hr Patch [Habitrol] 1 patch TRANSDERM DAILY patch 01/26/23 Sennosides-Docusate Sodium 2 each PO BID tab 01/26/23 [Senokot-S] bisacodyL [Dulcolax] 10 mg RECTAL DAILY PRN suppositor 01/26/23 lisinopriL [Zestril] 2.5 mg PO BID tab 01/26/23 predniSONE 5 mg PO DIRECTED #30 tab 01/26/23 Azithromycin [Zithromax] 0 mg PO DIRECTED #6 tab 01/08/24 predniSONE 60 mg PO DAILY #30 tab 01/08/24 Allergies Allergy/AdvReac Type Severity Reaction Status Date / Time No Known Allergies Allergy Verified 04/13/23 09:27 Review of Systems ROS Statement: Those systems with pertinent positive or pertinent negative responses have been documented in the HPI. ROS Other: All systems not noted in ROS Statement are negative. Constitutional: Denies: fever, chills Respiratory: Reports: as per HPI, cough, dyspnea Cardiovascular: Reports: as per HPI, chest pain, dyspnea on exertion, orthopnea. Denies: palpitations, edema, syncope Gastrointestinal: Denies: abdominal pain, nausea, vomiting, diarrhea Genitourinary: Denies: dysuria, hematuria Musculoskeletal: Denies: back pain Skin: Denies: rash Neurological: Denies: headache, weakness, numbness Past Medical History Past Medical History: Atrial Fibrillation, COPD, Eye Disorder, Hyperlipidemia, Hypertension, Osteoarthritis (OA), Thyroid Disorder Additional Past Medical History / Comment(s): Sober 1978, hiatal hernia, glaucoma left eye, possible stroke behind left eye per opthamologist. arthritis in back,cystic acne on back to see grocery store manager. History of Any Multi-Drug Resistant Organisms: None Reported Additional Past Surgical History / Comment(s): HYDROCELE surg. x2, hemorrhoidectomy, colonoscopy, cataract surgery [facility] eyes Past Anesthesia/Blood Transfusion Reactions: No Reported Reaction Additional Past Anesthesia/Blood Transfusion Reaction / Comment(s): no blood transfusions Past Psychological History: Anxiety, Bipolar, Panic Disorder Smoking Status: Current every day smoker Past Alcohol Use History: None Reported Past Drug Use History: Marijuana - Past Family History Mother Family Medical History: Diabetes Mellitus Father Family Medical History: Coronary Artery Disease (CAD) Sister(s) Family Medical History: Coronary Artery Disease (CAD), Diabetes Mellitus, Hypertension General Exam Limitations: no limitations General appearance: alert, in no apparent distress Head exam: Present: atraumatic, normocephalic Eye exam: Present: normal appearance. Absent: scleral icterus, conjunctival injection Neck exam: Present: normal inspection Respiratory exam: Present: wheezes, rhonchi, chest wall tenderness. Absent: respiratory distress, rales, stridor, accessory muscle use, decreased breath sounds Cardiovascular Exam: Present: regular rate, normal rhythm, normal heart sounds GI/Abdominal exam: Present: soft. Absent: distended, tenderness, guarding, rebo und, rigid, mass Extremities exam: Present: normal inspection, normal capillary refill. Absent: pedal edema, calf tenderness Back exam: Present: normal inspection. Absent: CVA tenderness (R), CVA tenderness (L) Neurological exam: Present: alert Skin exam: Present: warm, dry, intact, normal color. Absent: rash Course Vital Signs 01/08/24 01/08/24 01/08/24 15:06 15:48 16:06 Temperature 98.1 F Pulse Rate 75 53 L 70 Respiratory 18 20 Rate Blood Pressure 97/62 103/67 O2 Sat by Pulse 90 L 88 L Oximetry 01/08/24 01/08/24 16:18 18:22 Temperature 97.9 F Pulse Rate 72 67 Respiratory 19 Rate Blood Pressure 101/60 O2 Sat by Pulse 92 L Oximetry Medical Decision Making - Medical Decision Making The patient had chest x-ray that I interpreted as showing presence of moderately large hiatal hernia with stomach and bowel contents. No pneumothorax or congestive heart failure. Was pt. sent in by a medical professional or institution (Dr., PA, CHORAL TEACHER, urgent care, hospital, or [facility]...) When possible be specific @ -[No] Did you speak to anyone other than the patient for history (EMS, parent, family, police, friend...)? What history was obtained from this source @ -[No] Did you review nursing and triage notes (agree or disagree)? Why? @ -[I reviewed and agree with nursing and triage notes] Were old charts reviewed (outside hosp., previous admission, EMS record, old EKG, old radiological studies, urgent care reports/EKG's, [facility] records)? Report findings @ -[No old charts were reviewed] Differential Diagnosis (chest pain, altered mental status, abdominal pain women, abdominal pain men, vaginal bleeding, weakness, fever, dyspnea, syncope, headache, dizziness, GI bleed, back pain, seizure, CVA, palpatations, mental health, musculoskeletal)? @ -[Differential Dyspnea: Coronary syndrome, arrhythmia, tamponade, asthma, COPD, pulmonary embolism, pneumonia, pneumothorax, pulmonary effusion, anaphylaxis, diabetic ketoacidosis, flailed chest, pulmonary contusion, diaphragmatic rupture, anemia, neuromuscular, this is not meant to be an all-inclusive list. EKG interpreted by me (3pts min.). @ -[As above] X-rays interpreted by me (1pt min.). @ -I interpreted as above CT interpreted by me (1pt min.). @ -[None done] U/S interpreted by me (1pt. min.). @ -[None done] What testing was considered but not performed or refused? (CT, X-rays, U/S, labs)? Why? @ -[None] What meds were considered but not given or refused? Why? @ -[None] Did you discuss the management of the patient with other professionals (pro fessionals i.e. DARCIE Smith, CHORAL TEACHER, lab, RT, psych nurse, social media coordinator, grinding machine operator automatic, teacher, collection officer, correctional case records supervisor)? Give summary @ -[No] Was smoking cessation discussed for >3mins.? @ -[No] Was critical care preformed (if so, how long)? @ -[No] Were there social determinants of health that impacted care today? How? (Homelessness, low income, unemployed, alcoholism, drug addiction, transportation, low edu. Level, literacy, decrease access to med. care, group home, rehab)? @ -[No] Was there de-escalation of care discussed even if they declined (Discuss DNR or withdrawal of care, Hospice)? DNR status @ -[No] What co-morbidities impacted this encounter? (DM, HTN, Smoking, COPD, CAD, Cancer, CVA, ARF, Chemo, Hep., AIDS, mental health diagnosis, sleep apnea, morbid obesity)? @ -[COPD Was patient admitted / discharged? Hospital course, mention meds given and route, prescriptions, significant lab abnormalities, going to OR and other pertinent info. @ -[Patient is 68-year-old man here with dyspnea that appears consistent with exacerbation of underlying COPD. The patient has treatment and is feeling much better and did want to go home. We did discuss admission but he is feeling better. Discussed appropriate further care and follow-up as well as return parameters. Undiagnosed new problem with uncertain prognosis? @ -[No] Drug Therapy requiring intensive monitoring for toxicity (Heparin, Nitro, Insulin, Cardizem)? @ -[No] Were any procedures done? @ -[No] Diagnosis/symptom? @ -[Acute exacerbation of COPD Acute, or Chronic, or Acute on Chronic? @ -[Acute on chronic Uncomplicated (without systemic symptoms) or Complicated (systemic symptoms)? @ -[default] Side effects of treatment? @ -[No] Exacerbation, Progression, or Severe Exacerbation? @ -[No] Poses a threat to life or bodily function? How? (Chest pain, USA, NM, pneumonia, PE, COPD, DKA, ARF, appy, cholecystitis, CVA, Diverticulitis, Homicidal, Suicidal, threat to staff... and all critical care pts) @ -[No] - Lab Data Result diagrams: 01/08/24 15:37 01/08/24 15:37 Lab Results 01/08/24 01/08/24 01/08/24 Range/Units 15:37 15:37 15:37 WBC 12.0 H (3.8-10.6) k/uL RBC 5.66 (4.30-5.90) m/uL Hgb 17.5 (13.0-17.5) gm/dL Hct 54.4 H (39.0-53.0) % MCV 96.1 (80.0-100.0) fL MCH 30.8 (25.0-35.0) pg MCHC 32.1 (31.0-37.0) g/dL RDW 14.0 (11.5-15.5) % Plt Count 115 L (150-450) k/uL MPV 11.3 Neutrophils % 68 % Lymphocytes % 22 % Monocytes % 7 % Eosinophils % 1 % Basophils % 0 % Neutrophils # 8.1 H (1.3-7.7) k/uL Lymphocytes # 2.6 (1.0-4.8) k/uL Monocytes # 0.8 (0-1.0) k/uL Eosinophils # 0.2 (0-0.7) k/uL Basophils # 0.0 (0-0.2) k/uL Manual Slide Review Performed Large Platelets Present PT 11.9 (10.0-12.5) sec INR 1.1 (<1.2) APTT 24.8 (22.0-30.0) sec Sodium 142 (137-145) mmol/L Potassium 4.5 (3.5-5.1) mmol/L Chloride 111 H (98-107) mmol/L Carbon Dioxide 28 (22-30) mmol/L Anion Gap 3 mmol/L BUN 36 H (9-20) mg/dL Creatinine 1.39 H (0.66-1.25) mg/dL Est GFR (CKD-EPI)AfAm 61 (>60 ml/min/1.73 sqM) Est GFR (CKD-EPI)NonAf 53 (>60 ml/min/1.73 sqM) Glucose 104 H (74-99) mg/dL Plasma Lactic Acid Rios (0.7-2.0) mmol/L Calcium 8.9 (8.4-10.2) mg/dL Magnesium 2.0 (1.6-2.3) mg/dL Total Bilirubin 0.7 (0.2-1.3) mg/dL AST 31 (17-59) U/L ALT 27 (4-49) U/L Alkaline Phosphatase 84 (38-126) U/L Troponin I (0.000-0.034) ng/mL NT-Pro-B Natriuret Pep 102 pg/mL Total Protein 6.4 (6.3-8.2) g/dL Albumin 3.7 (3.5-5.0) g/dL 01/08/24 01/08/24 Range/Units 15:37 15:37 WBC (3.8-10.6) k/uL RBC (4.30-5.90) m/uL Hgb (13.0-17.5) gm/dL Hct (39.0-53.0) % MCV (80.0-100.0) fL MCH (25.0-35.0) pg MCHC (31.0-37.0) g/dL RDW (11.5-15.5) % Plt Count (150-450) k/uL MPV Neutrophils % % Lymphocytes % % Monocytes % % Eosinophils % % Basophils % % Neutrophils # (1.3-7.7) k/uL Lymphocytes # (1.0-4.8) k/uL Monocytes # (0-1.0) k/uL Eosinophils # (0-0.7) k/uL Basophils # (0-0.2) k/uL Manual Slide Review Large Platelets PT (10.0-12.5) sec INR (<1.2) APTT (22.0-30.0) sec Sodium (137-145) mmol/L Potassium (3.5-5.1) mmol/L Chloride (98-107) mmol/L Carbon Dioxide (22-30) mmol/L Anion Gap mmol/L BUN (9-20) mg/dL Creatinine (0.66-1.25) mg/dL Est GFR (CKD-EPI)AfAm (>60 ml/min/1.73 sqM) Est GFR (CKD-EPI)NonAf (>60 ml/min/1.73 sqM) Glucose (74-99) mg/dL Plasma Lactic Acid Rios 0.8 (0.7-2.0) mmol/L Calcium (8.4-10.2) mg/dL Magnesium (1.6-2.3) mg/dL Total Bilirubin (0.2-1.3) mg/dL AST (17-59) U/L ALT (4-49) U/L Alkaline Phosphatase (38-126) U/L Troponin I <0.012 (0.000-0.034) ng/mL NT-Pro-B Natriuret Pep pg/mL Total Protein (6.3-8.2) g/dL Albumin (3.5-5.0) g/dL - EKG Data -: EKG Interpreted by Me EKG shows normal: sinus rhythm, QRS complexes (There does appear to be anterolateral infarct, probable old as is there are similar changes on the previous ECG.) Rate: normal (Rate 73 bpm) Disposition Clinical Impression: COPD with exacerbation Disposition: HOME SELF-CARE Condition: Good Instructions (If sedation given, give patient instructions): COPD (Chronic Obstructive Pulmonary Disease) (ED) Prescriptions: predniSONE 60 mg PO DAILY #30 tab Azithromycin [Zithromax] 0 mg PO DIRECTED #6 tab Is patient prescribed a controlled substance at d/c from ED?: No Referrals: Josue Villela MD [Primary Care Provider] - 1-2 days
[2024-01-08 16:02] LABS: Basophils % (A) 0 %; Eosinophils # (A) 0.2 k/uL (0-0.7); Eosinophils % (A) 1 %; HCT 54.4 % (39.0-53.0); HGB 17.5 gm/dL (13.0-17.5); Lymphocytes # (A) 2.6 k/uL (1.0-4.8); Lymphocytes % (A) 22 %; MCH 30.8 pg (25.0-35.0); MCHC 32.1 g/dL (31.0-37.0); MCV 96.1 fL (80.0-100.0); Mean Platelet Volume 11.3; Monocytes # (A) 0.8 k/uL (0-1.0); Monocytes % (A) 7 %; Neutrophils # (A) 8.1 k/uL (1.3-7.7); Neutrophils % (A) 68 %; Platelet Count 115 k/uL (150-450); RBC 5.66 m/uL (4.30-5.90)
[2024-01-08] MEDS: ALBUTEROL NEBULIZED 2.5 MG/3 ML INHALATION STA ×3 (16:05→17:58)
[2024-01-08 16:14] LABS: ALT 27 U/L (4-49); AST 31 U/L (17-59); African American GFR (CKD) 61 (>60 ml/min/1.73 sqM); Albumin 3.7 g/dL (3.5-5.0); Alkaline Phosphatase 84 U/L (38-126); Anion Gap 3 mmol/L; Blood Urea Nitrogen 36 mg/dL (9-20); Calcium 8.9 mg/dL (8.4-10.2); Carbon Dioxide 28 mmol/L (22-30); Chloride 111 mmol/L (98-107); Glucose 104 mg/dL (74-99); Non-African American GFR(CKD) 53 (>60 ml/min/1.73 sqM); Sodium 142 mmol/L (137-145); Total Bilirubin 0.7 mg/dL (0.2-1.3); Total Protein 6.4 g/dL (6.3-8.2)
[2024-01-08 16:17] LABS: INR 1.1 (<1.2); Partial Thromboplastin Time 24.8 sec (22.0-30.0); Prothrombin Time 11.9 sec (10.0-12.5)
[2024-01-08 16:22] LABS: NT-Pro-B-Type Natriuretic Pept 102 pg/mL
--- NOTE | 2024-01-08 16:29 | XR ---
EXAMINATION TYPE: XR chest 2V DATE OF EXAM: 01/08/2024 COMPARISON: 01/19/2023, 12/20/2023 HISTORY: 68-year-old male with shortness of breath, difficulty breathing TECHNIQUE: PA and lateral views FINDINGS: Left heart margin obscured by what appears to be a very large hiatal hernia occupying the left lower chest and medial right base. This appears to have enlarged from prior exam. Background hyperinflation and interstitial prominence. Patchy left basilar opacity likely atelectasis. IMPRESSION: 1. Interval increasing size of the patient's known, very large hiatal hernia compared to 01/19/2023. T he hernia appears to contain the stomach as well as part of the colon. Fairly similar compared to 12/20. Consider surgical evaluation if symptomatic. 2. Background COPD. Patchy left basilar opacity likely atelectasis.
[2024-01-08 16:30] LABS: Potassium 4.5 mmol/L (3.5-5.1)
[2024-01-08 16:51] LABS: Large Platelets Present
[2024-01-08] MEDS: ASPIRIN 81 MG PO STA (17:09)
[2024-01-08] MEDS: predniSONE 20 MG TAB PO STA (18:20)
[2024-01-08 18:36] VITALS: BP 101/60; PULSE 67; RESP 19; TEMP 97.9
== END 2024-01-08 18:24 | disposition home or self-care (01) ==
LOC: EC 14:34
DX: J44.1 Chronic obstructive pulmonary disease with (acute) exacerbation (principal); I10 Essential (primary) hypertension; E78.5 Hyperlipidemia, unspecified; F31.9 Bipolar disorder, unspecified; I48.91 Unspecified atrial fibrillation; M19.90 Unspecified osteoarthritis, unspecified site; E07.9 Disorder of thyroid, unspecified; F41.9 Anxiety disorder, unspecified; F12.90 Cannabis use, unspecified, uncomplicated; F17.200 Nicotine dependence, unspecified, uncomplicated; Z79.01 Long term (current) use of anticoagulants; Z79.890 Hormone replacement therapy; Z79.82 Long term (current) use of aspirin; Z79.899 Other long term (current) drug therapy
CPT/HCPCS: 36415; 94640; 93005; 83880; 80053; 83605; 83735; 84484; 85025; 85610; 85730; 71046; 99285; J7512

== ENCOUNTER 2024-03-01 02:00 | Inpatient (IN) | payer MEDICARE, OTHER ==
--- NOTE | 2024-03-01 02:22 | ED ---
Recheck HPI - General Chief Complaint: Altered Mental Status Stated Complaint: Hypotension, Pneumonia Time Seen by Provider: 03/01/24 02:19 Source: EMS, RN notes reviewed, old records reviewed Mode of arrival: EMS Limitations: language barrier, altered mental status, physical limitation - History of Present Illness Initial Comments: This is a 69-year-old male unable to provide history secondary to clinical condition presents in respiratory distress sent from outside facility for pneumonia presents in respiratory failure with significant hypoxia and low blood pressure MD Complaint: abnormal lab (Renal failure), needs IV antibiotics (Pneumonia), other (Severe COPD exacerbation) -: unknown Returns Today for: Called Because of Abnormal Lab/Test, needs IV antibiotics Symptoms Since Prior Visit: worsening pain (Altered mental status) Associated Symptoms: shortness of breath, malaise Treatments Prior to Arrival: Given Antibiotics on, other - Related Data Home Medications Medication Instructions Recorded Confirmed Latanoprost/Pf [Latanoprost 0.005% 1 drop LEFT EYE HS 08/18/20 03/01/24 Eye Drop] Levothyroxine Sodium 125 mcg PO DAILY 08/18/20 03/01/24 Albuterol Sulfate [Albuterol 1 puff INHALATION RT-Q4H PRN 04/01/22 03/01/24 Sulfate Hfa] Apixaban [Eliquis] 5 mg PO BID 04/01/22 03/01/24 Aspirin EC [Ecotrin Low Dose] 81 mg PO DAILY 04/01/22 03/01/24 Loratadine [Claritin] 10 mg PO DAILY 04/01/22 03/01/24 Fluticasone/Vilanterol [Breo 1 puff INHALATION RT-DAILY 01/11/23 03/01/24 Ellipta 200-25 Mcg Inhaler] OLANZapine [ZyPREXA] 20 mg PO HS 01/11/23 03/01/24 Pantoprazole Sodium [Protonix] 40 mg PO DAILY 01/11/23 03/01/24 Tiotropium [place] [Spiriva 1 cap INHALATION RT-DAILY 01/11/23 03/01/24 Handihaler] Albuterol Nebulized [Ventolin 2.5 mg INHALATION RT-Q6H 03/01/24 03/01/24 Nebulized] Amiodarone [Cordarone] 100 mg PO DAILY 03/01/24 03/01/24 Budesonide/Formoterol Fumarate 2 puff INHALATION RT-BID 03/01/24 03/01/24 [Symbicort 160-4.5 Mcg Inhaler] Gabapentin [Neurontin] 100 mg PO TID 03/01/24 03/01/24 PARoxetine HCL [Paxil] 30 mg PO DAILY 03/01/24 03/01/24 Sennosides [Senokot] 8.6 mg PO BID 03/01/24 03/01/24 Previous Rx's Medication Instructions Recorded Acetaminophen Tab [Tylenol] 650 mg PO Q4HR PRN tab 01/26/23 Metoprolol Tartrate [Lopressor] 100 mg PO BID #60 tablet 03/06/24 Nicotine 21Mg/24Hr Patch [Habitrol] 1 patch TRANSDERM DAILY #30 patch 03/06/24 Tamsulosin [Flomax] 0.4 mg PO PC-BRKFST #30 cap 03/06/24 predniSONE 10 mg PO DAILY #30 tab 03/06/24 Allergies Allergy/AdvReac Type Severity Reaction Status Date / Time No Known Allergies Allergy Verified 03/01/24 11:06 Review of Systems ROS Statement: Those systems with pertinent positive or pertinent negative responses have been documented in the HPI. ROS Other: All systems not noted in ROS Statement are negative. Past Medical History Past Medical History: Atrial Fibrillation, COPD, Eye Disorder, Hyperlipidemia, Hypertension, Osteoarthritis (OA), Thyroid Disorder Additional Past Medical History / Comment(s): Sober 1978, hiatal hernia, glaucoma left eye, possible stroke behind left eye per opthamologist. arthritis in back,cystic acne on back to see real estate consultant. History of Any Multi-Drug Resistant Organisms: None Reported Additional Past Surgical History / Comment(s): HYDROCELE surg. x2, hemorrhoidectomy, colonoscopy, cataract surgery [facility] [facility] Past Anesthesia/Blood Transfusion Reactions: No Reported Reaction Additional Past Anesthesia/Blood Transfusion Reaction / Comment(s): no blood transfusions Past Psychological History: Anxiety, Bipolar, Panic Disorder Smoking Status: Current every day smoker Past Alcohol Use History: None Reported Past Drug Use History: Marijuana - Past Family History Mother Family Medical History: Diabetes Mellitus Father Family Medical History: Coronary Artery Disease (CAD) Sister(s) Family Medical History: Coronary Artery Disease (CAD), Diabetes Mellitus, Hypertension General Exam Limitations: altered mental status General appearance: alert, in no apparent distress, anxious, in distress Head exam: Present: atraumatic, normocephalic, normal inspection Eye exam: Present: normal appearance, PERRL, EOMI. Absent: scleral icterus, con junctival injection, periorbital swelling ENT exam: Present: normal exam, mucous membranes moist Neck exam: Present: normal inspection. Absent: tenderness, meningismus, lymphadenopathy Respiratory exam: Present: respiratory distress, wheezes, accessory muscle use, decreased breath sounds, prolonged expiratory. Absent: rales, rhonchi, stridor Cardiovascular Exam: Present: regular rate, normal rhythm, normal heart sounds. Absent: systolic murmur, diastolic murmur, rubs, gallop, clicks GI/Abdominal exam: Present: soft, normal bowel sounds. Absent: distended, tenderness, guarding, rebound, rigid Extremities exam: Present: normal inspection, full ROM, normal capillary refill. Absent: tenderness, pedal edema, joint swelling, calf tenderness Back exam: Present: normal inspection Neurological exam: Present: alert, oriented X3, CN II-XII intact Psychiatric exam: Present: normal affect, normal mood Skin exam: Present: warm, dry, intact, normal color. Absent: rash Course Vital Signs 03/01/24 03/01/24 03/01/24 02:04 02:06 02:15 Temperature 97.8 F Pulse Rate 84 Respiratory 16 16 26 H Rate Blood Pressure 70/64 85/60 78/64 O2 Sat by Pulse 88 L 82 L 87 L Oximetry Fraction of Inspired Oxygen (FIO2) 03/01/24 03/01/24 03/01/24 02:30 02:37 02:45 Temperature Pulse Rate 80 88 Respiratory 22 16 14 Rate Blood Pressure 58/43 70/59 O2 Sat by Pulse 82 L 90 L Oximetry Fraction of Inspired Oxygen (FIO2) 03/01/24 03/01/24 03/01/24 02:56 02:59 03:00 Temperature Pulse Rate 79 80 Respiratory 16 Rate Blood Pressure 84/55 O2 Sat by Pulse 89 L Oximetry Fraction of 60 60 Inspired Oxygen (FIO2) 03/01/24 03/01/24 03/01/24 03:10 03:15 03:30 Temperature Pulse Rate 84 85 84 Respiratory 18 17 Rate Blood Pressure 82/53 66/49 O2 Sat by Pulse 91 L Oximetry Fraction of Inspired Oxygen (FIO2) 03/01/24 03/01/2424 03:45 04:00 04:15 Temperature Pulse Rate 85 94 96 Respiratory 23 14 20 Rate Blood Pressure 75/54 71/53 85/59 O2 Sat by Pulse 97 95 Oximetry Fraction of Inspired Oxygen (FIO2) 03/01/24 03/01/24 03/01/24 04:30 04:45 05:00 Temperature Pulse Rate 95 90 84 Respiratory 18 18 16 Rate Blood Pressure 78/62 78/50 78/62 O2 Sat by Pulse 97 92 L 92 L Oximetry Fraction of Inspired Oxygen (FIO2) 03/01/24 03/01/24 03/01/24 05:15 05:30 05:45 Temperature Pulse Rate 84 84 83 Respiratory 16 16 42 H Rate Blood Pressure 94/72 102/66 100/81 O2 Sat by Pulse 90 L 86 L 79 L Oximetry Fraction of Inspired Oxygen (FIO2) 03/01/24 03/01/24 03/01/24 06:00 06:15 06:30 Temperature Pulse Rate 82 74 80 Respiratory 24 16 15 Rate Blood Pressure 104/80 95/74 85/64 O2 Sat by Pulse 96 96 97 Oximetry Fraction of Inspired Oxygen (FIO2) 03/01/24 03/01/24 03/01/24 06:45 08:00 08:41 Temperature Pulse Rate 86 76 Respiratory 19 15 Rate Blood Pressure 97/77 114/82 O2 Sat by Pulse 95 96 Oximetry Fraction of 60 Inspired Oxygen (FIO2) 03/01/24 03/01/24 03/01/24 08:43 09:00 09:07 Temperature Pulse Rate 83 83 Respiratory 18 Rate Blood Pressure 102/78 O2 Sat by Pulse 98 96 Oximetry Fraction of 60 50 Inspired Oxygen (FIO2) 03/01/24 03/01/24 03/01/24 09:08 10:00 10:19 Temperature Pulse Rate 87 77 Respiratory Rate Blood Pressure 103/69 100/75 O2 Sat by Pulse Oximetry Fraction of Inspired Oxygen (FIO2) 03/01/24 03/01/24 03/01/24 10:47 11:00 11:32 Temperature Pulse Rate 87 Respiratory 14 Rate Blood Pressure 98/70 97/67 105/73 O2 Sat by Pulse 97 Oximetry Fraction of Inspired Oxygen (FIO2) 03/01/24 03/01/24 03/01/24 11:44 11:46 11:51 Temperature Pulse Rate 87 74 Respiratory 14 Rate Blood Pressure 107/78 O2 Sat by Pulse 98 Oximetry Fraction of 50 Inspired Oxygen (FIO2) 03/01/24 03/01/24 03/01/24 12:00 12:02 12:15 Temperature 97.5 F L Pulse Rate 80 87 84 Respiratory 14 14 Rate Blood Pressure 87/69 94/80 O2 Sat by Pulse 96 95 Oximetry Fraction of Inspired Oxygen (FIO2) 03/01/24 03/01/24 03/01/24 12:41 12:46 13:46 Temperature Pulse Rate 82 87 83 Respiratory 14 14 Rate Blood Pressure 95/66 101/73 101/76 O2 Sat by Pulse 95 95 96 Oximetry Fraction of Inspired Oxygen (FIO2) 03/01/24 03/01/24 03/01/24 14:11 14:15 15:00 Temperature Pulse Rate 78 85 83 Respiratory 14 14 Rate Blood Pressure 102/82 107/81 108/64 O2 Sat by Pulse 96 96 96 Oximetry Fraction of 50 Inspired Oxygen (FIO2) 03/01/24 03/01/24 03/01/24 15:09 15:20 15:26 Temperature Pulse Rate 89 Respiratory 14 Rate Blood Pressure 103/75 86/60 85/64 O2 Sat by Pulse 96 Oximetry Fraction of Inspired Oxygen (FIO2) 03/01/24 03/01/24 03/01/24 15:40 16:00 17:00 Temperature Pulse Rate 83 93 Respiratory 14 13 Rate Blood Pressure 92/59 101/83 101/79 O2 Sat by Pulse 97 97 Oximetry Fraction of 50 50 Inspired Oxygen (FIO2) 03/01/24 03/01/24 03/01/24 17:28 17:29 17:40 Temperature Pulse Rate 87 87 Respiratory Rate Blood Pressure O2 Sat by Pulse Oximetry Fraction of 50 Inspired Oxygen (FIO2) 03/01/24 03/01/24 03/01/24 17:57 18:03 18:47 Temperature Pulse Rate 88 90 62 Respiratory 14 14 Rate Blood Pressure 101/76 87/63 104/76 O2 Sat by Pulse 100 96 Oximetry Fraction of Inspired Oxygen (FIO2) 03/01/24 03/01/24 03/01/24 19:00 19:24 19:34 Temperature Pulse Rate 92 81 85 Respiratory 14 Rate Blood Pressure 104/70 O2 Sat by Pulse 97 Oximetry Fraction of 50 Inspired Oxygen (FIO2) 03/01/24 03/01/24 03/01/24 19:45 20:58 22:00 Temperature Pulse Rate 86 89 90 Respiratory 14 19 20 Rate Blood Pressure 96/70 121/72 93/72 O2 Sat by Pulse 96 95 94 L Oximetry Fraction of Inspired Oxygen (FIO2) 03/01/24 03/01/24 03/02/24 23:00 23:12 00:00 Temperature Pulse Rate 93 99 Respiratory 20 19 Rate Blood Pressure 100/74 101/75 O2 Sat by Pulse 93 L 93 L Oximetry Fraction of 50 Inspired Oxygen (FIO2) 03/02/24 03/02/24 03/02/24 01:30 02:00 02:37 Temperature Pulse Rate 93 88 Respiratory 18 18 Rate Blood Pressure 98/59 108/75 O2 Sat by Pulse 96 92 L Oximetry Fraction of 50 Inspired Oxygen (FIO2) 03/02/24 03/02/24 03/02/24 03:00 04:00 05:00 Temperature Pulse Rate 94 82 99 Respiratory 18 18 20 Rate Blood Pressure 80/58 99/74 99/75 O2 Sat by Pulse 92 L 95 93 L Oximetry Fraction of Inspired Oxygen (FIO2) 03/02/24 03/02/24 03/02/24 06:00 07:48 07:50 Temperature 97.0 F L Pulse Rate 96 102 H Respiratory 24 27 H Rate Blood Pressure 101/77 105/76 O2 Sat by Pulse 91 L 96 Oximetry Fraction of 50 Inspired Oxygen (FIO2) 03/02/24 03/02/24 03/02/24 07:51 08:06 08:25 Temperature Pulse Rate 101 H 112 H Respiratory Rate Blood Pressure O2 Sat by Pulse 91 L Oximetry Fraction of Inspired Oxygen (FIO2) 03/02/24 03/02/24 03/02/24 08:30 09:00 10:00 Temperature Pulse Rate 102 H 103 H 105 H Respiratory 18 18 22 Rate Blood Pressure 122/81 98/83 117/77 O2 Sat by Pulse 91 L 93 L 92 L Oximetry Fraction of Inspired Oxygen (FIO2) 03/02/24 03/02/24 03/02/24 11:47 12:00 12:02 Temperature Pulse Rate 110 H 105 H 114 H Respiratory 18 Rate Blood Pressure 106/72 O2 Sat by Pulse 91 L Oximetry Fraction of Inspired Oxygen (FIO2) 03/02/24 03/02/24 03/02/24 14:07 15:16 15:26 Temperature Pulse Rate 107 H 102 H 118 H Respiratory 18 18 Rate Blood Pressure 101/73 104/84 O2 Sat by Pulse 92 L 92 L Oximetry Fraction of Inspired Oxygen (FIO2) 03/02/24 15:42 Temperature Pulse Rate 115 H Respiratory Rate Blood Pressure O2 Sat by Pulse Oximetry Fraction of Inspired Oxygen (FIO2) - Reevaluation(s) Reevaluation #1: 03/01/24 05:02 Medical records reviewed Transferring paperwork is reviewed Reevaluation #2: 03/01/24 05:02 Patient is informed of results and questions answered Reevaluation #3: 03/01/24 05:02 Patient blood pressure remains soft despite significant resuscitation here in the ER mental status is improving Reevaluation #4: Was pt. sent in by a medical professional or institution (, [facility], [employer], urgent care, hospital, or fci...) When possible be specific @ -no Did you speak to anyone other than the patient for history (EMS, parent, family, police, friend...)? What history was obtained from this source @ -no Did you review nursing and triage notes (agree or disagree)? Why? @ -agree Are old charts reviewed (outside hosp., previous admission, EMS record, old EKG, old radiological studies, urgent care reports/EKG's, fci records)? Report findings @ -yes Differential Diagnosis (chest pain, altered mental status, abdominal pain women, abdominal pain men, vaginal bleeding, weakness, fever, dyspnea, syncope, headache, dizziness, GI bleed, back pain, seizure, CVA, palpatations, mental health, musculoskeletal)? @ -prior EKG interpreted by me (3pts min.). @ -yes X-rays interpreted by me (1pt min.). @ -yes significant for pneumonia CT interpreted by me (1pt min.). @ -no U/S interpreted by me (1pt. min.). @ -no What testing was considered but not performed or refused? (CT, X-rays, U/S, labs)? Why? @ -none What meds were considered but not given or refused? Why? @ -none Did you discuss the management of the patient with other professionals (professionals i.e. [facility] Smith, INDUSTRIAL AUTOMATION ENGINEER, lab, RT, psych nurse, social group worker, binding cementer french cord, teacher, county records management officer, correctional casework specialist)? Give summary @ -no Was smoking cessation discussed for >3mins.? @ -no Was critical care preformed (if so, how long)? @ -yes31 Were there social determinants of health that impacted care today? How? (Homelessness, low income, unemployed, alcoholism, drug addiction, transportation, low edu. Level, literacy, decrease access to med. care, correction, rehab)? @ -none Was there de-escalation of care discussed even if they declined (Discuss DNR or withdrawal of care, Hospice)? DNR status @ -no What co-morbidities impacted this encounter? (DM, HTN, Smoking, COPD, CAD, Ca ncer, CVA, ARF, Chemo, Hep., AIDS, mental health diagnosis, sleep apnea, morbid obesity)? @ -none Was patient admitted / discharged? Hospital course, mention meds given and route, prescriptions, significant lab abnormalities, going to OR and other pertinent info. @ - 69 male accepted in transfer with pneumonia and renal failure. Patient is in significant septic shock with significant with volume resuscitation provided here in the emergency department, patient will continue to be monitored for significant resuscitative efforts and supportive care, respiratory failure and COPD failure Admitted Undiagnosed new problem with uncertain prognosis? @ -no Drug Therapy requiring intensive monitoring for toxicity (Heparin, Nitro, Insulin, Cardizem)? @ -no Were any procedures done? @ -no Diagnosis/symptom? @ -COPD with respiratory failure and pneumonia Acute, or Chronic, or Acute on Chronic? @ -Acute Uncomplicated (without systemic symptoms) or Complicated (systemic symptoms)? @ -Complicated Side effects of treatment? @ -no Exacerbation, Progression, or Severe Exacerbation? @ -exacerbation Poses a threat to life or bodily function? How? (Chest pain, [place], [place], pneumonia, PE, COPD, DKA, ARF, appy, cholecystitis, CVA, Diverticulitis, Homicidal, Suicidal, threat to staff... and all critical care pts) @ -yes with significant sepsis\ Reevaluation #5: Differential Altered Mental Status: Hypoglycemia, DKA, hypercapnia, ETOH, overdose, CO poisoning, trauma, myxedema coma, HTN encephalopathy, infection, encephalitis, psychosis, intercranial hemorrhage, hepatic encephalopathy, meningitis, CVA, this is not meant to be an all-inclusive list Differential Dyspnea: Coronary syndrome, arrhythmia, tamponade, asthma, COPD, pulmonary embolism, pneumonia, pneumothorax, pulmonary effusion, anaphylaxis, diabetic ketoacidosis, flailed chest, pulmonary contusion, diaphragmatic rupture, anemia, neuromuscular, this is not meant to be an all-inclusive list. - Consultations Consultation #1: Spoke with [facility] who agrees to admit this patient Consultation #2: Spoke with ICU who admit the patient to the ICU Procedures - Sepsis Sepsis Focused Exam #1 Time Sepsis Criteria Met: 04:00 Sepsis Focused Exam Date: 03/01/24 Sepsis Focused Exam Time: 07:00 Sepsis Focused Exam Complete: Yes Vital Signs & RN Notes Reviewed: Yes Capillary Refill: < 2 Seconds: Fingers, Toes Peripheral Pulses: Normal: Radial (R), Radial (L), Posterior Tibialis (R), Posterior Tibialis (L), Dorsalis Pedis (R), Dorsalis Pedis (L) Skin Color: Flushed Respiratory Exam: respiratory distress, wheezes Cardiovascular Exam: regular rate Medical Decision Making - Medical Decision Making 69 male accepted in transfer with pneumonia and renal failure. Patient is in significant septic shock with significant with volume resuscitation provided here in the emergency department, patient will continue to be monitored for significant resuscitative efforts and supportive care, respiratory failure and COPD failure - Lab Data Result diagrams: 03/03/24 09:41 03/04/24 09:18 Lab Results 03/01/24 03/01/24 03/01/24 Range/Units 02:24 02:24 02:24 WBC 12.6 H (3.8-10.6) k/uL RBC 5.04 (4.30-5.90) m/uL Hgb 15.7 (13.0-17.5) gm/dL Hct 48.7 (39.0-53.0) % MCV 96.6 (80.0-100.0) fL MCH 31.2 (25.0-35.0) pg MCHC 32.3 (31.0-37.0) g/dL RDW 14.5 (11.5-15.5) % Plt Count 93 L (150-450) k/uL MPV 14.1 Neutrophils % 87 % Lymphocytes % 10 % Monocytes % 2 % Eosinophils % 0 % Basophils % 0 % Neutrophils # 10.9 H (1.3-7.7) k/uL Lymphocytes # 1.3 (1.0-4.8) k/uL Monocytes # 0.3 (0-1.0) k/uL Eosinophils # 0.1 (0-0.7) k/uL Basophils # 0.0 (0-0.2) k/uL Manual Slide Review Performed Large Platelets Present RBC Morphology Normal PT 13.4 H (10.0-12.5) sec INR 1.3 H (<1.2) APTT 27.8 (22.0-30.0) sec Sample Site ABG pH (7.35-7.45) ABG pCO2 (35-45) mmHg ABG pO2 (83-108) mmHg ABG HCO3 (21-25) mmol/L ABG Total CO2 (19-24) mmol/L ABG O2 Saturation (94-97) % ABG Base Excess mmol/L Maciel Test FiO2 % Sodium 138 (137-145) mmol/L Potassium 4.6 (3.5-5.1) mmol/L Chloride 108 H (98-107) mmol/L Carbon Dioxide 19 L (22-30) mmol/L Anion Gap 11 mmol/L BUN 60 H (9-20) mg/dL Creatinine 5.35 H (0.66-1.25) mg/dL Est GFR (CKD-EPI)AfAm 12 (>60 ml/min/1.73 sqM) Est GFR (CKD-EPI)NonAf 10 (>60 ml/min/1.73 sqM) Glucose 126 H (74-99) mg/dL POC Glucose (mg/dL) (70-110) mg/dL POC Glu Probation Agent ID Plasma Lactic Acid Rios (0.7-2.0) mmol/L Calcium 8.0 L (8.4-10.2) mg/dL Magnesium 2.0 (1.6-2.3) mg/dL Total Bilirubin 0.6 (0.2-1.3) mg/dL AST 30 (17-59) U/L ALT 24 (4-49) U/L Alkaline Phosphatase 97 (38-126) U/L Troponin I (0.000-0.034) ng/mL NT-Pro-B Natriuret Pep 721 pg/mL Total Protein 6.0 L (6.3-8.2) g/dL Albumin 3.4 L (3.5-5.0) g/dL Urine Color Urine Appearance (Clear) Urine pH (5.0-8.0) Ur Specific [place] (1.001-1.035) Urine Protein (Negative) Urine Glucose (UA) (Negative) Urine Ketones (Negative) Urine Blood (Negative) Urine Nitrite (Negative) Urine Bilirubin (Negative) Urine Urobilinogen (<2.0) mg/dL Ur Leukocyte Esterase (Negative) 03/01/24 03/01/24 03/01/24 Range/Units 02:24 02:24 02:25 WBC (3.8-10.6) k/uL RBC (4.30-5.90) m/uL Hgb (13.0-17.5) gm/dL Hct (39.0-53.0) % MCV (80.0-100.0) fL MCH (25.0-35.0) pg MCHC (31.0-37.0) g/dL RDW (11.5-15.5) % Plt Count (150-450) k/uL MPV Neutrophils % % Lymphocytes % % Monocytes % % Eosinophils % % Basophils % % Neutrophils # (1.3-7.7) k/uL Lymphocytes # (1.0-4.8) k/uL Monocytes # (0-1.0) k/uL Eosinophils # (0-0.7) k/uL Basophils # (0-0.2) k/uL Manual Slide Review Large Platelets RBC Morphology PT (10.0-12.5) sec INR (<1.2) APTT (22.0-30.0) sec Sample Site ABG pH (7.35-7.45) ABG pCO2 (35-45) mmHg ABG pO2 (83-108) mmHg ABG HCO3 (21-25) mmol/L ABG Total CO2 (19-24) mmol/L ABG O2 Saturation (94-97) % ABG Base Excess mmol/L Maciel Test FiO2 % Sodium (137-145) mmol/L Potassium (3.5-5.1) mmol/L Chloride (98-107) mmol/L Carbon Dioxide (22-30) mmol/L Anion Gap mmol/L BUN (9-20) mg/dL Creatinine (0.66-1.25) mg/dL Est GFR (CKD-EPI)AfAm (>60 ml/min/1.73 sqM) Est GFR (CKD-EPI)NonAf (>60 ml/min/1.73 sqM) Glucose (74-99) mg/dL POC Glucose (mg/dL) 121 H (70-110) mg/dL POC Glu Probation Agent ID Hyacinth Henao Plasma Lactic Acid Rios 0.7 (0.7-2.0) mmol/L Calcium (8.4-10.2) mg/dL Magnesium (1.6-2.3) mg/dL Total Bilirubin (0.2-1.3) mg/dL AST (17-59) U/L ALT (4-49) U/L Alkaline Phosphatase (38-126) U/L Troponin I <0.012 (0.000-0.034) ng/mL NT-Pro-B Natriuret Pep pg/mL Total Protein (6.3-8.2) g/dL Albumin (3.5-5.0) g/dL Urine Color Urine Appearance (Clear) Urine pH (5.0-8.0) Ur Specific [place] (1.001-1.035) Urine Protein (Negative) Urine Glucose (UA) (Negative) Urine Ketones (Negative) Urine Blood (Negative) Urine Nitrite (Negative) Urine Bilirubin (Negative) Urine Urobilinogen (<2.0) mg/dL Ur Leukocyte Esterase (Negative) 03/01/24 03/01/24 Range/Units 02:41 02:47 WBC (3.8-10.6) k/uL RBC (4.30-5.90) m/uL Hgb (13.0-17.5) gm/dL Hct (39.0-53.0) % MCV (80.0-100.0) fL MCH (25.0-35.0) pg MCHC (31.0-37.0) g/dL RDW (11.5-15.5) % Plt Count (150-450) k/uL MPV Neutrophils % % Lymphocytes % % Monocytes % % Eosinophils % % Basophils % % Neutrophils # (1.3-7.7) k/uL Lymphocytes # (1.0-4.8) k/uL Monocytes # (0-1.0) k/uL Eosinophils # (0-0.7) k/uL Basophils # (0-0.2) k/uL Manual Slide Review Large Platelets RBC Morphology PT (10.0-12.5) sec INR (<1.2) APTT (22.0-30.0) sec Sample Site rbrac ABG pH 7.19 L* (7.35-7.45) ABG pCO2 62 H (35-45) mmHg ABG pO2 69 L (83-108) mmHg ABG HCO3 24 (21-25) mmol/L ABG Total CO2 26 H (19-24) mmol/L ABG O2 Saturation 91.6 L (94-97) % ABG Base Excess -4.1 mmol/L Maciel Test Yes FiO2 100 % Sodium (137-145) mmol/L Potassium (3.5-5.1) mmol/L Chloride (98-107) mmol/L Carbon Dioxide (22-30) mmol/L Anion Gap mmol/L BUN (9-20) mg/dL Creatinine (0.66-1.25) mg/dL Est GFR (CKD-EPI)AfAm (>60 ml/min/1.73 sqM) Est GFR (CKD-EPI)NonAf (>60 ml/min/1.73 sqM) Glucose (74-99) mg/dL POC Glucose (mg/dL) (70-110) mg/dL POC Glu Probation Agent ID Plasma Lactic Acid Rios (0.7-2.0) mmol/L Calcium (8.4-10.2) mg/dL Magnesium (1.6-2.3) mg/dL Total Bilirubin (0.2-1.3) mg/dL AST (17-59) U/L ALT (4-49) U/L Alkaline Phosphatase (38-126) U/L Troponin I (0.000-0.034) ng/mL NT-Pro-B Natriuret Pep pg/mL Total Protein (6.3-8.2) g/dL Albumin (3.5-5.0) g/dL Urine Color Yellow Urine Appearance Clear (Clear) Urine pH 5.0 (5.0-8.0) Ur Specific [place] 1.012 (1.001-1.035) Urine Protein Trace H (Negative) Urine Glucose (UA) Negative (Negative) Urine Ketones Negative (Negative) Urine Blood Negative (Negative) Urine Nitrite Negative (Negative) Urine Bilirubin Negative (Negative) Urine Urobilinogen <2.0 (<2.0) mg/dL Ur Leukocyte Esterase Negative (Negative) - EKG Data -: EKG Interpreted by Me (EKG is A-fib 91 QRS 110 QTc 426) - Radiology Data Radiology results: report reviewed (Chest x-ray does show bilateral infiltrate with CHF), image reviewed Critical Care Time Critical Care Time: Yes Total Critical Care Time: 31 Disposition Clinical Impression: COPD with exacerbation, CHF (congestive heart failure), Hypoxia, Pneumonia, Altered mental status, Delirium due to general medical condition, Atrial fibrillation with RVR, Sepsis, Renal insufficiency syndrome, COPD (chronic obstructive pulmonary disease), Bilateral leg edema Disposition: ADMITTED IP TO THIS HOSP Is patient prescribed a controlled substance at d/c from ED?: No Time of Disposition: 05:00
[2024-03-01 02:26] LABS: Glucose,Whole Blood 121 mg/dL (70-110)
[2024-03-01] MEDS: NALOXONE 0.4 MG/ML 1 ML VIAL IVP STA (02:37)
[2024-03-01] MEDS: SODIUM CHLORIDE 0.9% 1,000 ML IV STA ×2 (02:38→02:39)
[2024-03-01 02:44] LABS: ABG Base Excess -4.1 mmol/L; ABG HCO3 24 mmol/L (21-25); ABG Oxygen Saturation 91.6 % (94-97); ABG PCO2 62 mmHg (35-45); ABG PO2 69 mmHg (83-108); ABG TCO2 26 mmol/L (19-24); Allen Test Performed? Yes
[2024-03-01] MEDS: IPRATROPIUM-ALBUTEROL 3 ML NEB INHALATION STA ×2 (02:54→04:12)
[2024-03-01 03:00] LABS: ABG PH 7.19 (7.35-7.45)
[2024-03-01 03:03] LABS: ALT 24 U/L (4-49); AST 30 U/L (17-59); African American GFR (CKD) 12 (>60 ml/min/1.73 sqM); Albumin 3.4 g/dL (3.5-5.0); Alkaline Phosphatase 97 U/L (38-126); Anion Gap 11 mmol/L; Blood Urea Nitrogen 60 mg/dL (9-20); Carbon Dioxide 19 mmol/L (22-30); Chloride 108 mmol/L (98-107); Glucose 126 mg/dL (74-99); Non-African American GFR(CKD) 10 (>60 ml/min/1.73 sqM); Potassium 4.6 mmol/L (3.5-5.1); Sodium 138 mmol/L (137-145); Total Bilirubin 0.6 mg/dL (0.2-1.3)
[2024-03-01 03:05] LABS: INR 1.3 (<1.2); Partial Thromboplastin Time 27.8 sec (22.0-30.0); Prothrombin Time 13.4 sec (10.0-12.5)
[2024-03-01 03:11] LABS: NT-Pro-B-Type Natriuretic Pept 721 pg/mL
[2024-03-01 03:14] LABS: Basophils % (A) 0 %; Eosinophils # (A) 0.1 k/uL (0-0.7); Eosinophils % (A) 0 %; HCT 48.7 % (39.0-53.0); HGB 15.7 gm/dL (13.0-17.5); Lymphocytes # (A) 1.3 k/uL (1.0-4.8); Lymphocytes % (A) 10 %; MCH 31.2 pg (25.0-35.0); MCHC 32.3 g/dL (31.0-37.0); MCV 96.6 fL (80.0-100.0); Mean Platelet Volume 14.1; Monocytes # (A) 0.3 k/uL (0-1.0); Monocytes % (A) 2 %; Neutrophils # (A) 10.9 k/uL (1.3-7.7); Neutrophils % (A) 87 %; RBC 5.04 m/uL (4.30-5.90); RDW 14.5 % (11.5-15.5); WBC 12.6 k/uL (3.8-10.6)
[2024-03-01] MEDS: methylPREDNISolone SOD SUCCI 125 MG/2 ML VIAL IV STA (03:29)
[2024-03-01] MEDS ORDERED: VANCOMYCIN IV PER PHARMACY 1 EACH MISC MISCELLANE PRN ×3 (03:29→09:11)
[2024-03-01 03:46] LABS: Large Platelets Present; Platelet Count 93 k/uL (150-450); RBC Morphology Normal
[2024-03-01] MEDS: NOREPINEPHRINE 4 MG in SODIUM CHLORIDE 0.9% 250 ML IV ONE (03:59)
[2024-03-01] MEDS: PIPERACILLIN-TAZOBACTAM 3.375 GM in SODIUM CHLORIDE 0.9% 100 ML IVPB STA (04:03)
--- NOTE | 2024-03-01 04:20 | XR ---
EXAM: XR Chest, 1 View CLINICAL HISTORY: sob TECHNIQUE: Frontal view of the chest. COMPARISON: December 20, 2023. FINDINGS: Lungs: There is new consolidation in the left lung. This may represent atelectasis, though infiltration is difficult to exclude. The right lung is clear. Pleural space: Unremarkable. No pneumothorax or pleural fluid. Heart: Unremarkable. No cardiomegaly. Mediastinum: There is a very large hiatal or left diaphragmatic hernia containing stomach and colon. Bones/joints: No acute findings. IMPRESSION: There is new consolidation in the left lung. This may represent atelectasis, though infiltration is difficult to exclude.
[2024-03-01] MEDS ORDERED: MORPHINE SULFATE 4 MG/ML SYRINGE IV PRN (04:58)
[2024-03-01] MEDS ORDERED: NALOXONE 0.4 MG/ML 1 ML VIAL IV PRN (04:58)
[2024-03-01] MEDS ORDERED: ONDANSETRON 4 MG/2 ML VIAL IVP PRN (04:58)
[2024-03-01] MEDS: VANCOMYCIN 1,750 MG in SODIUM CHLORIDE 0.9% 500 ML 500 ML IVPB STA (05:46)
[2024-03-01 06:10] LABS: Appearance,Urine Clear (Clear); Bilirubin,Urine Negative (Negative); Blood,Urine Negative (Negative); Color,Urine Yellow; Glucose,Urine (UA) Negative (Negative); Ketones,Urine Negative (Negative); Leukocyte Esterase,Urine Negative (Negative); Nitrite,Urine Negative (Negative); Protein,Urine Trace (Negative); Specific Gravity,Urine 1.012 (1.001-1.035); Urobilinogen,Urine <2.0 mg/dL (<2.0)
[2024-03-01] MEDS: IPRATROPIUM-ALBUTEROL 3 ML NEB INHALATION SCH (08:42)
[2024-03-01 08:57] LABS: ABG Base Excess -5.3 mmol/L; ABG HCO3 22 mmol/L (21-25); ABG Oxygen Saturation 95.9 % (94-97); ABG PCO2 48 mmHg (35-45); ABG PH 7.27 (7.35-7.45); ABG PO2 95 mmHg (83-108); ABG TCO2 23 mmol/L (19-24); Allen Test Performed? Yes
[2024-03-01] MEDS ORDERED: PNEUMONIA PROTOCOL UTILIZED 1 EACH MISC PO PRN (09:11)
[2024-03-01] MEDS ORDERED: ACETAMINOPHEN TAB 325 MG TAB PO PRN (09:12)
[2024-03-01] MEDS: SODIUM BICARB 8.4% 50 ML SYR (1 MEQ/ML) IV STA (09:37)
[2024-03-01] MEDS: guaiFENesin 600 MG TABLET.ER PO SCH (09:38)
[2024-03-01] MEDS: SODIUM CHLORIDE 0.9% 1,000 ML IV SCH (09:38)
[2024-03-01] MEDS: PIPERACILLIN-TAZOBACTAM 3.375 GM in SODIUM CHLORIDE 0.9% 100 ML IVPB SCH (09:38)
--- NOTE | 2024-03-01 10:41 | US ---
EXAMINATION TYPE: US kidneys/renal and bladder DATE OF EXAM: 03/01/2024 COMPARISON: NONE CLINICAL INDICATION: Male, 69 years old with history of renal failure EXAM MEASUREMENTS: Right Kidney: 11.1 x 5.5 x 5.3 cm Left Kidney: 13.0 x 6.2 x 5.2 cm Right Kidney: no evidence of hydronephrosis Left Kidney: no evidence of hydronephrosis Bladder: Shook Catheter IMPRESSION: No hydronephrosis. Bladder collapsed due to indwelling Shook catheter.
[2024-03-01] MEDS: methylPREDNISolone SOD SUCCI 125 MG/2 ML VIAL IV SCH (11:35)
--- NOTE | 2024-03-01 12:58 | P.NPCON ---
History of Present Illness - Reason for Consult acute renal failure - History of Present Illness patient is a 69-year-old male who presents to the emergency room with mental status changes.patient was also asked to go to the hospital due to abnormal labs. Serum creatinine was noted to be at 5.3. Previous creatinine was 1.39 on 01/08/2024 and 1.0 on 04/16/2023 Patient has been hypotensive with systolic blood pressure in the 80s. Currently maintained on BiPAP. Difficult to arouse patient to obtain history. I believe there is a language barrier as well. it appears that a Shook catheter was placed in the ER and 1000 mL of urine was obtained. It is unclear if this was soon after Shook catheter placement. Review of Systems as per HPI Past Medical History Past Medical History: Atrial Fibrillation, COPD, Eye Disorder, Hyperlipidemia, Hypertension, Osteoarthritis (OA), Thyroid Disorder Additional Past Medical History / Comment(s): Sober 1978, hiatal hernia, glaucoma left eye, possible stroke behind left eye per opthamologist. arthritis in back,cystic acne on back to see account services associate. History of Any Multi-Drug Resistant Organisms: None Reported Additional Past Surgical History / Comment(s): HYDROCELE surg. x2, hemorrhoidectomy, colonoscopy, cataract surgery tamara eyes Past Anesthesia/Blood Transfusion Reactions: No Reported Reaction Additional Past Anesthesia/Blood Transfusion Reaction / Comment(s): no blood transfusions Past Psychological History: Anxiety, Bipolar, Panic Disorder Smoking Status: Current every day smoker Past Alcohol Use History: None Reported Past Drug Use History: Marijuana - Past Family History Mother Family Medical History: Diabetes Mellitus Father Family Medical History: Coronary Artery Disease (CAD) Sister(s) Family Medical History: Coronary Artery Disease (CAD), Diabetes Mellitus, Hypertension Medications and Allergies Home Medications Medication Instructions Recorded Confirmed Type Latanoprost/Pf [Latanoprost 0.005% 1 drop LEFT EYE HS 08/18/20 03/01/24 History Eye Drop] Levothyroxine Sodium 125 mcg PO DAILY 08/18/20 03/01/24 History Albuterol Sulfate [Albuterol 1 puff INHALATION RT-Q4H PRN 04/01/22 03/01/24 History Sulfate Hfa] Apixaban [Eliquis] 5 mg PO BID 04/01/22 03/01/24 History Aspirin EC [Ecotrin Low Dose] 81 mg PO DAILY 04/01/22 03/01/24 History Loratadine [Claritin] 10 mg PO DAILY 04/01/22 03/01/24 History Fluticasone/Vilanterol [Breo 1 puff INHALATION RT-DAILY 01/11/23 03/01/24 History Ellipta 200-25 Mcg Inhaler] OLANZapine [ZyPREXA] 20 mg PO HS 01/11/23 03/01/24 History Pantoprazole Sodium [Protonix] 40 mg PO DAILY 01/11/23 03/01/24 History Tiotropium [place] [Spiriva 1 cap INHALATION RT-DAILY 01/11/23 03/01/24 History Handihaler] Acetaminophen Tab [Tylenol] 650 mg PO Q4HR PRN tab 01/26/23 03/01/24 Rx Furosemide [Lasix] 40 mg PO DAILY #0 01/26/23 03/01/24 Rx Metoprolol Tartrate [Lopressor] 50 mg PO BID tab 01/26/23 03/01/24 Rx Midodrine [ProAmatine] 5 mg PO AC-TID tab 01/26/23 03/01/24 Rx lisinopriL [Zestril] 2.5 mg PO BID tab 01/26/23 03/01/24 Rx Albuterol Nebulized [Ventolin 2.5 mg INHALATION RT-Q6H 03/01/24 03/01/24 History Nebulized] Amiodarone [Cordarone] 100 mg PO DAILY 03/01/24 03/01/24 History Budesonide/Formoterol Fumarate 2 puff INHALATION RT-BID 03/01/24 03/01/24 History [Symbicort 160-4.5 Mcg Inhaler] Gabapentin [Neurontin] 100 mg PO TID 03/01/24 03/01/24 History Minocycline [Minocin] 50 mg PO BID 03/01/24 03/01/24 History PARoxetine HCL [Paxil] 30 mg PO DAILY 03/01/24 03/01/24 History Sennosides [Senokot] 8.6 mg PO BID 03/01/24 03/01/24 History Allergies Allergy/AdvReac Type Severity Reaction Status Date / Time No Known Allergies Allergy Verified 03/01/24 11:06 Physical Exam Vitals: Vital Signs Temp Pulse Resp BP Pulse Ox FiO2 03/01/24 12:46 87 14 101/73 95 03/01/24 12:41 82 14 95/66 95 03/01/24 12:15 84 14 94/80 95 03/01/24 12:02 87 03/01/24 12:00 97.5 F L 80 14 87/69 96 03/01/24 11:51 74 14 107/78 98 03/01/24 11:46 50 03/01/24 11:44 87 03/01/24 11:32 87 14 105/73 97 03/01/24 11:00 97/67 03/01/24 10:47 98/70 03/01/24 10:19 100/75 03/01/24 10:00 77 103/69 03/01/24 09:08 87 03/01/24 09:07 50 03/01/24 09:00 83 18 102/78 96 03/01/24 08:43 83 98 60 03/01/24 08:41 60 03/01/24 08:00 76 15 114/82 96 03/01/24 06:45 86 19 97/77 95 03/01/24 06:30 80 15 85/64 97 03/01/24 06:15 74 16 95/74 96 03/01/24 06:00 82 24 104/80 96 03/01/24 05:45 83 42 H 100/81 79 L 03/01/24 05:30 84 16 102/66 86 L 03/01/24 05:15 84 16 94/72 90 L 03/01/24 05:00 84 16 78/62 92 L 03/01/24 04:45 90 18 78/50 92 L 03/01/24 04:30 95 18 78/62 97 03/01/24 04:15 96 20 85/59 95 03/01/24 04:00 94 14 71/53 97 03/01/24 03:45 85 23 75/54 03/01/24 03:30 84 17 66/49 03/01/24 03:15 85 18 82/53 91 L 03/01/24 03:10 84 03/01/24 03:00 80 16 84/55 89 L 03/01/24 02:59 60 03/01/24 02:56 79 60 03/01/24 02:45 88 14 70/59 90 L 03/01/24 02:37 16 03/01/24 02:30 80 22 58/43 82 L 03/01/24 02:15 26 H 78/64 87 L 03/01/24 02:06 16 85/60 82 L 03/01/24 02:04 97.8 F 84 16 70/64 88 L Intake and Output 02/29/24 03/01/24 03/01/24 22:59 06:59 14:59 Intake Total 88.895 210.182 Output Total 1050 1000 Balance -961.105 -789.818 Intake: Intake, IV Titration 88.895 210.182 Amount Norepinephrine 4 mg In 88.895 210.182 Sodium Chloride 0.9% 250 ml @ 0.03 MCG/KG/MIN 12. 961 mls/hr IV .[id number] ONE Rx#:[id number] Output: Urine 1050 1000 Uretheral (Shook) 200 1000 Other: Weight 113.398 kg patient is currently on BiPAP. Tanesha arousable He is comfortable Examination of the heart S1 and S2 Examination the lungs bilateral breath sounds are heard Abdomen is obese soft nontender Examination of lower extremities shows no significant edema Results - Lab Results Most recent lab results ABG pH 7.27 (7.35-7.45) L 03/01/24 08:50 ABG pCO2 48 mmHg (35-45) H 03/01/24 08:50 ABG pO2 95 mmHg (83-108) 03/01/24 08:50 ABG HCO3 22 mmol/L (21-25) 03/01/24 08:50 ABG O2 Saturation 95.9 % (94-97) 03/01/24 08:50 Calcium 8.0 mg/dL (8.4-10.2) L 03/01/24 02:24 Magnesium 2.0 mg/dL (1.6-2.3) 03/01/24 02:24 03/01/24 02:24 03/01/24 02:24 Assessment and Plan Assessment: 1. Acute kidney injury most likely ATN with possible underlying urine retentio n, status post Shook catheter placement.maintained on IV fluids.UA is benign. Ultrasound shows no evidence of hydronephrosis. 2. Metabolic acidosis associated with acute kidney injury 3. CO2 retention and hypercapnic respiratory failure currently maintained on BiPAP 4. History of hypertension with blood pressure currently low. Midodrine and lisinopril noted on home med list. Plan: continue with IV fluids Repeat labs today and in a.m. Continue with Shook catheter Continue to hold off on PANTERA inhibitor's thank you for the consultation. We will continue to follow the patient with you during his hospitalization.
--- NOTE | 2024-03-01 13:03 | P.HPIM ---
History of Present Illness H&P Date: 03/01/24 Chief Complaint: shortness of breath * 69-year-old patient with past medical history significant for COPD, congestive heart failure, history of bipolar disorder, hypothyroid, hyperlipidemia, atrial fibrillation previous history of PEA cardiac arrest in 2022presents to the emergency department secondary to altered mental status, respiratory distress low blood pressure and hypoxia. Patient was accepted as a crossover from an outside hospital for renal failure pneumonia respiratory failure and septic shock. * workup initiated in ER included CBC which were WBC of 12.6 hemoglobin 15.7 platelet count of 93, INR of 1.3 * Blood gas obtained showed pH of 7.19 pCO2 62 * serum chemistry obtained showed creatinine of 5.35 previous creatinine of 1.39. serum chemistry obtained showed sodium 138 potassium 4.6 carbon dioxide 19 BU and 60. Blood glucose 126. Albumin of 3.4 REVIEW OF SYSTEMS: Limited secondary to altered mentation PHYSICAL EXAMINATION: GENERAL: The patient is alert and oriented x 0 ill appearance in distress s econdary to on BiPAP HEENT: Pupils are round and equally reacting to light. EOMI CARDIOVASCULAR: S1 and S2 present. No murmurs, rubs, or gallops. PULMONARY: decreased breath sounds bilaterally ABDOMEN: Soft, nontender, nondistended, normoactive bowel sounds. No palpable organomegaly. MUSCULOSKELETAL: No joint swelling or deformity. EXTREMITIES: No cyanosis, clubbing, or pedal edema. NEUROLOGICAL: Exam limited secondary to medical condition assessment and plan * Septic shock * Left lower lobe pneumonia * acute hypoxemic hypercapnic respiratory failure * Acute exacerbation of COPD * Acute renal failure * Metabolic acidosis secondary to underlying sepsis and renal failure * History of atrial fibrillation * chronic congestive heart failure systolic and diastolic dysfunction * History ofcardiac arrest/pulseless electrical activity January 2023 * Patient remains critically ill to be admitted to medical ICU team IC team consulted * In regards to septic shock continue patient onnorepinephrine, continue broad- spectrum antibiotic Zosyn and vancomycin, blood cultures collected * In regards to COPD serial arterial blood gas ordered, continue breathing treatment continue with noninvasive ventilation * In regards to renal failure renal ultrasound ordered a Shook catheter order to maintain Axert I's and O's * In regards to history of atrial fibrillation, patient on amiodarone, Eliquis, aspirin, metoprolol at home,>> Multiple meds held at this time secondary to clinical status will be resumed as tolerated * In regards to previous history of congestive heart failure,patient to be resuscitated with fluids secondary to shock will do accurate intake and output * status is full code Past Medical History Past Medical History: Atrial Fibrillation, COPD, Eye Disorder, Hyperlipidemia, Hypertension, Osteoarthritis (OA), Thyroid Disorder Additional Past Medical History / Comment(s): Sober 1979, hiatal hernia, glaucoma left eye, possible stroke behind left eye per opthamologist. arthritis in back,cystic acne on back to see small engine trainer. History of Any Multi-Drug Resistant Organisms: None Reported Additional Past Surgical History / Comment(s): HYDROCELE surg. x2, hemorrhoidectomy, colonoscopy, cataract surgery tamara eyes Past Anesthesia/Blood Transfusion Reactions: No Reported Reaction Additional Past Anesthesia/Blood Transfusion Reaction / Comment(s): no blood transfusions Past Psychological History: Anxiety, Bipolar, Panic Disorder Smoking Status: Current every day smoker Past Alcohol Use History: None Reported Past Drug Use History: Marijuana - Past Family History Mother Family Medical History: Diabetes Mellitus Father Family Medical History: Coronary Artery Disease (CAD) Sister(s) Family Medical History: Coronary Artery Disease (CAD), Diabetes Mellitus, Hypertension Medications and Allergies Home Medications Medication Instructions Recorded Confirmed Type Latanoprost/Pf [Latanoprost 0.005% 1 drop LEFT EYE HS 08/18/20 03/01/24 History Eye Drop] Levothyroxine Sodium 125 mcg PO DAILY 08/18/20 03/01/24 History Albuterol Sulfate [Albuterol 1 puff INHALATION RT-Q4H PRN 04/01/22 03/01/24 History Sulfate Hfa] Apixaban [Eliquis] 5 mg PO BID 04/01/22 03/01/24 History Aspirin EC [Ecotrin Low Dose] 81 mg PO DAILY 04/01/22 03/01/24 History Loratadine [Claritin] 10 mg PO DAILY 04/01/22 03/01/24 History Fluticasone/Vilanterol [Breo 1 puff INHALATION RT-DAILY 01/11/23 03/01/24 History Ellipta 200-25 Mcg Inhaler] OLANZapine [ZyPREXA] 20 mg PO HS 01/11/23 03/01/24 History Pantoprazole Sodium [Protonix] 40 mg PO DAILY 01/11/23 03/01/24 History Tiotropium [place] [Spiriva 1 cap INHALATION RT-DAILY 01/11/23 03/01/24 History Handihaler] Acetaminophen Tab [Tylenol] 650 mg PO Q4HR PRN tab 01/26/23 03/01/24 Rx Furosemide [Lasix] 40 mg PO DAILY #0 01/26/23 03/01/24 Rx Metoprolol Tartrate [Lopressor] 50 mg PO BID tab 01/26/23 03/01/24 Rx Midodrine [ProAmatine] 5 mg PO AC-TID tab 01/26/23 03/01/24 Rx lisinopriL [Zestril] 2.5 mg PO BID tab 01/26/23 03/01/24 Rx Albuterol Nebulized [Ventolin 2.5 mg INHALATION RT-Q6H 03/01/24 03/01/24 History Nebulized] Amiodarone [Cordarone] 100 mg PO DAILY 03/01/24 03/01/24 History Budesonide/Formoterol Fumarate 2 puff INHALATION RT-BID 03/01/24 03/01/24 H istory [Symbicort 160-4.5 Mcg Inhaler] Gabapentin [Neurontin] 100 mg PO TID 03/01/24 03/01/24 History Minocycline [Minocin] 50 mg PO BID 03/01/24 03/01/24 History PARoxetine HCL [Paxil] 30 mg PO DAILY 03/01/24 03/01/24 History Sennosides [Senokot] 8.6 mg PO BID 03/01/24 03/01/24 History Allergies Allergy/AdvReac Type Severity Reaction Status Date / Time No Known Allergies Allergy Verified 03/01/24 11:06 Physical Exam Vitals: Vital Signs Temp Pulse Resp BP Pulse Ox FiO2 03/01/24 09:08 87 03/01/24 09:07 50 03/01/24 09:00 83 18 102/78 96 03/01/24 08:43 83 98 60 03/01/24 08:41 60 03/01/24 08:00 76 15 114/82 96 03/01/24 06:45 86 19 97/77 95 03/01/24 06:30 80 15 85/64 97 03/01/24 06:15 74 16 95/74 96 03/01/24 06:00 82 24 104/80 96 03/01/24 05:45 83 42 H 100/81 79 L 03/01/24 05:30 84 16 102/66 86 L 03/01/24 05:15 84 16 94/72 90 L 03/01/24 05:00 84 16 78/62 92 L 03/01/24 04:45 90 18 78/50 92 L 03/01/24 04:30 95 18 78/62 97 03/01/24 04:15 96 20 85/59 95 03/01/24 04:00 94 14 71/53 97 03/01/24 03:45 85 23 75/54 03/01/24 03:30 84 17 66/49 03/01/24 03:15 85 18 82/53 91 L 03/01/24 03:10 84 03/01/24 03:00 80 16 84/55 89 L 03/01/24 02:59 60 03/01/24 02:56 79 60 03/01/24 02:45 88 14 70/59 90 L 03/01/24 02:37 16 03/01/24 02:30 80 22 58/43 82 L 03/01/24 02:15 26 H 78/64 87 L 03/01/24 02:06 16 85/60 82 L 03/01/24 02:04 97.8 F 84 16 70/64 88 L Intake and Output 02/29/24 03/01/24 03/01/24 22:59 06:59 14:59 Intake Total 88.895 118.021 Output Total 1050 Balance -961.105 118.021 Intake: Intake, IV Titration 88.895 118.021 Amount Norepinephrine 4 mg In 88.895 118.021 Sodium Chloride 0.9% 250 ml @ 0.03 MCG/KG/MIN 12. 961 mls/hr IV .[id number] ONE Rx#:[id number] Output: Urine 1050 Uretheral (Shook) 200 Other: Weight 113.398 kg Results CBC & Chem 7: 03/01/24 02:24 03/01/24 02:24 Labs: Abnormal Lab Results - Last 24 Hours (Table) 03/01/24 03/01/24 03/01/24 Range/Units 02:24 02:24 02:24 WBC 12.6 H (3.8-10.6) k/uL Plt Count 93 L (150-450) k/uL Neutrophils # 10.9 H (1.3-7.7) k/uL PT 13.4 H (10.0-12.5) sec INR 1.3 H (<1.2) ABG pH (7.35-7.45) ABG pCO2 (35-45) mmHg ABG pO2 (83-108) mmHg ABG Total CO2 (19-24) mmol/L ABG O2 Saturation (94-97) % Chloride 108 H (98-107) mmol/L Carbon Dioxide 19 L (22-30) mmol/L BUN 60 H (9-20) mg/dL Creatinine 5.35 H (0.66-1.25) mg/dL Glucose 126 H (74-99) mg/dL POC Glucose (mg/dL) (70-110) mg/dL Calcium 8.0 L (8.4-10.2) mg/dL Total Protein 6.0 L (6.3-8.2) g/dL Albumin 3.4 L (3.5-5.0) g/dL Urine Protein (Negative) 03/01/24 03/01/24 03/01/24 Range/Units 02:25 02:41 02:47 WBC (3.8-10.6) k/uL Plt Count (150-450) k/uL Neutrophils # (1.3-7.7) k/uL PT (10.0-12.5) sec INR (<1.2) ABG pH 7.19 L* (7.35-7.45) ABG pCO2 62 H (35-45) mmHg ABG pO2 69 L (83-108) mmHg ABG Total CO2 26 H (19-24) mmol/L ABG O2 Saturation 91.6 L (94-97) % Chloride (98-107) mmol/L Carbon Dioxide (22-30) mmol/L BUN (9-20) mg/dL Creatinine (0.66-1.25) mg/dL Glucose (74-99) mg/dL POC Glucose (mg/dL) 121 H (70-110) mg/dL Calcium (8.4-10.2) mg/dL Total Protein (6.3-8.2) g/dL Albumin (3.5-5.0) g/dL Urine Protein Trace H (Negative) 03/01/24 Range/Units 08:50 WBC (3.8-10.6) k/uL Plt Count (150-450) k/uL Neutrophils # (1.3-7.7) k/uL PT (10.0-12.5) sec INR (<1.2) ABG pH 7.27 L (7.35-7.45) ABG pCO2 48 H (35-45) mmHg ABG pO2 (83-108) mmHg ABG Total CO2 (19-24) mmol/L ABG O2 Saturation (94-97) % Chloride (98-107) mmol/L Carbon Dioxide (22-30) mmol/L BUN (9-20) mg/dL Creatinine (0.66-1.25) mg/dL Glucose (74-99) mg/dL POC Glucose (mg/dL) (70-110) mg/dL Calcium (8.4-10.2) mg/dL Total Protein (6.3-8.2) g/dL Albumin (3.5-5.0) g/dL Urine Protein (Negative)
[2024-03-01] MEDS ORDERED: MORPHINE SULFATE 2 MG/ML SYRINGE IV PRN (14:13)
--- NOTE | 2024-03-01 14:13 | P.CNPUL ---
History of Present Illness Consult date: 03/01/24 Requesting physician: Ellen Aguayo Reason for consult: COPD Chief complaint: Shortness of breath History of present illness: This is a 69-year-old white male with history of multiple medical problems including COPD, obesity, chronic congestive heart failure, bipolar disorder, hypothyroidism, chronic atrial fibrillation, patient is familiar to my service, I saw him back in January of 2023, patient had at the time in hospital cardiac arrest requiring CPR and subsequent return of spontaneous circulation CPR was as long as 5 minutes. Other medical problems at that time included underlying COPD , hypertension, bilateral pneumonia, hypertension, bipolar disorder, and generalized anxiety disorder patient was actually discharged back then on 01/26/2023, patient had follow-up with cardiology few months later, and he underwent cardiac catheterization where he was found to have minimal coronary a rtery disease, elevated left-sided filling pressures, ejection fraction was 60 to 65% at that time. Hence the patient was advised mostly medical therapy. On this admission the patient came in as a referral from an outside facility for pneumonia wherein he presented with symptoms of shortness of breath, hypoxia, low blood pressure, abnormal labs with findings of renal failure, patient was evaluated by the ER physician, and he was in significant respiratory distress placed on BiPAP. With IPAP of 14, EPAP of 6, FiO2 of 60%, ABG showed a pO2 of 69 pCO2 62 pH of 7. 1 9, consistent with a picture of metabolic and respiratory acidosis, for his metabolic acidosis I recommended an amp of bicarb, follow-up ABG showed a pO2 of 95 pCO2 48 pH of 7.26, FiO2 was cut down to 50%. Patient is requiring norepinephrine at 0.11 mcg/kg/min he received an amp of bicarb, and antibiotics webb I am recommending Zosyn every 12 hours. Chest x-ray showed a large hiatal hernia with bilateral bibasilar atelectasis, underlying pneumonia is not entirely ruled out. Especially in the left lung base and I did evaluate the patient in the ER, patient had negative screening for influenza A influenza B RSV and COVID-19 I will admit the patient to the ICU for further treatment of his sepsis/septic shock presentation and acute on chronic hypoxic and hypercapnic respiratory failure with severe metabolic respiratory and metabolic acidosis. Review of Systems ROS unobtainable: due to mental status (Patient is not cooperative, he is on BiPAP, unable to volunteer much information except yes and no) Past Medical History Past Medical History: Atrial Fibrillation, COPD, Eye Disorder, Hyperlipidemia, Hypertension, Osteoarthritis (OA), Thyroid Disorder Additional Past Medical History / Comment(s): Sober 1979, hiatal hernia, glaucoma left eye, possible stroke behind left eye per opthamologist. arthritis in back,cystic acne on back to see drum carrier. History of Any Multi-Drug Resistant Organisms: None Reported Additional Past Surgical History / Comment(s): HYDROCELE surg. x2, hemorrhoidectomy, colonoscopy, cataract surgery tamara eyes Past Anesthesia/Blood Transfusion Reactions: No Reported Reaction Additional Past Anesthesia/Blood Transfusion Reaction / Comment(s): no blood transfusions Past Psychological History: Anxiety, Bipolar, Panic Disorder Smoking Status: Current every day smoker Past Alcohol Use History: None Reported Past Drug Use History: Marijuana - Past Family History Mother Family Medical History: Diabetes Mellitus Father Family Medical History: Coronary Artery Disease (CAD) Sister(s) Family Medical History: Coronary Artery Disease (CAD), Diabetes Mellitus, Hype rtension Medications and Allergies Home Medications Medication Instructions Recorded Confirmed Type Latanoprost/Pf [Latanoprost 0.005% 1 drop LEFT EYE HS 08/18/20 03/01/24 History Eye Drop] Levothyroxine Sodium 125 mcg PO DAILY 08/18/20 03/01/24 History Albuterol Sulfate [Albuterol 1 puff INHALATION RT-Q4H PRN 04/01/22 03/01/24 History Sulfate Hfa] Apixaban [Eliquis] 5 mg PO BID 04/01/22 03/01/24 History Aspirin EC [Ecotrin Low Dose] 81 mg PO DAILY 04/01/22 03/01/24 History Loratadine [Claritin] 10 mg PO DAILY 04/01/22 03/01/24 History Fluticasone/Vilanterol [Breo 1 puff INHALATION RT-DAILY 01/11/23 03/01/24 History Ellipta 200-25 Mcg Inhaler] OLANZapine [ZyPREXA] 20 mg PO HS 01/11/23 03/01/24 History Pantoprazole Sodium [Protonix] 40 mg PO DAILY 01/11/23 03/01/24 History Tiotropium [place] [Spiriva 1 cap INHALATION RT-DAILY 01/11/23 03/01/24 History Handihaler] Acetaminophen Tab [Tylenol] 650 mg PO Q4HR PRN tab 01/26/23 03/01/24 Rx Furosemide [Lasix] 40 mg PO DAILY #0 01/26/23 03/01/24 Rx Metoprolol Tartrate [Lopressor] 50 mg PO BID tab 01/26/23 03/01/24 Rx Midodrine [ProAmatine] 5 mg PO AC-TID tab 01/26/23 03/01/24 Rx lisinopriL [Zestril] 2.5 mg PO BID tab 01/26/23 03/01/24 Rx Albuterol Nebulized [Ventolin 2.5 mg INHALATION RT-Q6H 03/01/24 03/01/24 History Nebulized] Amiodarone [Cordarone] 100 mg PO DAILY 03/01/24 03/01/24 History Budesonide/Formoterol Fumarate 2 puff INHALATION RT-BID 03/01/24 03/01/24 History [Symbicort 160-4.5 Mcg Inhaler] Gabapentin [Neurontin] 100 mg PO TID 03/01/24 03/01/24 History Minocycline [Minocin] 50 mg PO BID 03/01/24 03/01/24 History PARoxetine HCL [Paxil] 30 mg PO DAILY 03/01/24 03/01/24 History Sennosides [Senokot] 8.6 mg PO BID 03/01/24 03/01/24 History Allergies Allergy/AdvReac Type Severity Reaction Status Date / Time No Known Allergies Allergy Verified 03/01/24 11:06 Physical Exam Vitals: Vital Signs Temp Pulse Resp BP Pulse Ox FiO2 03/01/24 13:46 83 101/76 96 03/01/24 12:46 87 14 101/73 95 03/01/24 12:41 82 14 95/66 95 03/01/24 12:15 84 14 94/80 95 03/01/24 12:02 87 03/01/24 12:00 97.5 F L 80 14 87/69 96 03/01/24 11:51 74 14 107/78 98 03/01/24 11:46 50 03/01/24 11:44 87 03/01/24 11:32 87 14 105/73 97 03/01/24 11:00 97/67 03/01/24 10:47 98/70 03/01/24 10:19 100/75 03/01/24 10:00 77 103/69 03/01/24 09:08 87 03/01/24 09:07 50 03/01/24 09:00 83 18 102/78 96 03/01/24 08:43 83 98 60 03/01/24 08:41 60 03/01/24 08:00 76 15 114/82 96 03/01/24 06:45 86 19 97/77 95 03/01/24 06:30 80 15 85/64 97 03/01/24 06:15 74 16 95/74 96 03/01/24 06:00 82 24 104/80 96 03/01/24 05:45 83 42 H 100/81 79 L 03/01/24 05:30 84 16 102/66 86 L 03/01/24 05:15 84 16 94/72 90 L 03/01/24 05:00 84 16 78/62 92 L 03/01/24 04:45 90 18 78/50 92 L 03/01/24 04:30 95 18 78/62 97 03/01/24 04:15 96 20 85/59 95 03/01/24 04:00 94 14 71/53 97 03/01/24 03:45 85 23 75/54 03/01/24 03:30 84 17 66/49 03/01/24 03:15 85 18 82/53 91 L 03/01/24 03:10 84 03/01/24 03:00 80 16 84/55 89 L 03/01/24 02:59 60 03/01/24 02:56 79 60 03/01/24 02:45 88 14 70/59 90 L 03/01/24 02:37 16 03/01/24 02:30 80 22 58/43 82 L 03/01/24 02:15 26 H 78/64 87 L 03/01/24 02:06 16 85/60 82 L 03/01/24 02:04 97.8 F 84 16 70/64 88 L Intake and Output 02/29/24 03/01/24 03/01/24 22:59 06:59 14:59 Intake Total 88.895 231.784 Output Total 1050 1000 Balance -961.105 -768.216 Intake: Intake, IV Titration 88.895 231.784 Amount Norepinephrine 4 mg In 88.895 231.784 Sodium Chloride 0.9% 250 ml @ 0.03 MCG/KG/MIN 12. 961 mls/hr IV .[id number] ONE Rx#:[id number] Output: Urine 1050 1000 Uretheral (Shook) 200 1000 Other: Weight 113.398 kg General appearance: Revealed a 69-year-old white male, obese, on BiPAP, not quite cooperative. Head exam: Atraumatic, normocephalic. Eye exam: PERRLA, EOMI, nonicteric ENT exam: Patient on BiPAP, throat was not examined Neck exam: Supple no neck masses no JVD Respiratory exam: Rhonchi and wheezes noted bilaterally Cardiovascular Exam: Distant S1-S2, no S3 gallop. GI/Abdominal exam: obese soft nontender no megaly no rebound Extremities exam: Areas of bilateral lower extremities ecchymosis otherwise no clubbing edema or cyanosis Neurological exam: Patient is arousable, oriented x 3 no gross focal deficit Psychiatric exam: Could not fully assess, patient is not cooperative Skin exam: Bilateral areas of ecchymosis/lower extremities Results - Laboratory Findings CBC and BMP: 03/01/24 02:24 03/01/24 02:24 ABG ABG pH 7.27 (7.35-7.45) L 03/01/24 08:50 ABG pCO2 48 mmHg (35-45) H 03/01/24 08:50 ABG pO2 95 mmHg (83-108) 03/01/24 08:50 ABG O2 Saturation 95.9 % (94-97) 03/01/24 08:50 PT/INR, D-dimer PT 13.4 sec (10.0-12.5) H 03/01/24 02:24 INR 1.3 (<1.2) H 03/01/24 02:24 Abnormal lab findings: Abnormal Labs 03/01/24 03/01/24 03/01/24 02:24 02:24 02:24 WBC 12.6 H Plt Count 93 L Neutrophils # 10.9 H PT 13.4 H INR 1.3 H ABG pH ABG pCO2 ABG pO2 ABG Total CO2 ABG O2 Saturation Chloride 108 H Carbon Dioxide 19 L BUN 60 H Creatinine 5.35 H Glucose 126 H POC Glucose (mg/dL) Calcium 8.0 L Total Protein 6.0 L Albumin 3.4 L Urine Protein 03/01/24 03/01/24 03/01/24 02:25 02:41 02:47 WBC Plt Count Neutrophils # PT INR ABG pH 7.19 L* ABG pCO2 62 H ABG pO2 69 L ABG Total CO2 26 H ABG O2 Saturation 91.6 L Chloride Carbon Dioxide BUN Creatinine Glucose POC Glucose (mg/dL) 121 H Calcium Total Protein Albumin Urine Protein Trace H 03/01/24 08:50 WBC Plt Count Neutrophils # PT INR ABG pH 7.27 L ABG pCO2 48 H ABG pO2 ABG Total CO2 ABG O2 Saturation Chloride Carbon Dioxide BUN Creatinine Glucose POC Glucose (mg/dL) Calcium Total Protein Albumin Urine Protein - Diagnostic Findings Chest x-ray: image reviewed (As noted in HPI) Assessment and Plan Assessment: Impression: Acute hypoxic and hypercapnic respiratory failure Acute on chronic kidney injury, possible ATN, BUN is 60 creatinine 5.35 baseline creatinine is in the range of 1.39 back in December of 2023, it was normal in January of 2023 Acute exacerbation of COPD Possible aspiration pneumonia and sepsis with septic shock Acute respiratory and acute metabolic acidosis secondary to his pulmonary status and secondary to renal status History of chronic atrial fibrillation History of diastolic congestive heart failure and previous cardiac arrest/pulseless electrical activity back in January of 2023. Recommendation: Admit patient to the ICU Continue pressors/for hemodynamic support Continue BiPAP and titrate accordingly Patient was given 1 amp of bicarb earlier for his abnormal metabolic acidosis Nephrology to see on consultation Antibiotics/Zosyn empirically would discontinue vancomycin Check blood cultures and sputum cultures GI and DVT prophylaxis Patient is critically ill, will continue to follow Time with Patient: Greater than 30
[2024-03-01] MEDS: DOXYCYCLINE 100 MG in SODIUM CHLORIDE 0.9% 100 ML IVPB SCH (15:22)
[2024-03-01] MEDS: MIDODRINE 5 MG TAB PO SCH (18:46)
[2024-03-01] MEDS: SYMBICORT 160-4.5 MCG INHALER INHALATION SCH (19:22)
--- NOTE | 2024-03-01 19:48 | P.CONS ---
History of Present Illness - Reason for Consult Consult date: 03/01/24 - History of Present Illness Patient is a 69-year-old male with a past medical history significant for hypertension hyperlipidemia COPD atrial fibrillation hypothyroidism, cardiac arrest January 2023 patient apparently presented to the outside facility for evaluation of increasing shortness of breath patient was noticed to be hypoxic hypotensive was started on BiPAP and has been transferred to [facility] for further evaluation on presentation at this visit the patient has been afebrile patient is a nontachycardic blood pressure is marginal hypoxic and is currently on a BiPAP patient did have white count of 12.6 with a left shift creatinine 5.35 urine has been negative influenza RSV COVID testing has been negative patient did have a chest x-ray new consolidation in the left lung ultrasound abdomen did not show any hydronephrosis patient has been started on Zosyn and doxycycline infectious disease was consulted for further management of antibiotic to be most information has been obtained from review the chart talking nursing staff the patient is currently lethargic with a BiPAP and cannot provide any history Past Medical History Past Medical History: Atrial Fibrillation, COPD, Eye Disorder, Hyperlipidemia, Hypertension, Osteoarthritis (OA), Thyroid Disorder Additional Past Medical History / Comment(s): Sober 1978, hiatal hernia, glaucoma left eye, possible stroke behind left eye per opthamologist. arthritis in back,cystic acne on back to see blindstitch lapel padder. History of Any Multi-Drug Resistant Organisms: None Reported Additional Past Surgical History / Comment(s): HYDROCELE surg. x2, hemorrhoidectomy, colonoscopy, cataract surgery tamara eyes Past Anesthesia/Blood Transfusion Reactions: No Reported Reaction Additional Past Anesthesia/Blood Transfusion Reaction / Comm: no blood transfusions Past Psychological History: Anxiety, Bipolar, Panic Disorder Smoking Status: Current every day smoker Past Alcohol Use History: None Reported Past Drug Use History: Marijuana - Past Family History Mother Family Medical History: Diabetes Mellitus Father Family Medical History: Coronary Artery Disease (CAD) Sister(s) Family Medical History: Coronary Artery Disease (CAD), Diabetes Mellitus, Hypertension Medications and Allergies Home Medications Medication Instructions Recorded Confirmed Type Latanoprost/Pf [Latanoprost 0.005% 1 drop LEFT EYE HS 08/18/20 03/01/24 History Eye Drop] Levothyroxine Sodium 125 mcg PO DAILY 08/18/20 03/01/24 History Albuterol Sulfate [Albuterol 1 puff INHALATION RT-Q4H PRN 04/01/22 03/01/24 History Sulfate Hfa] Apixaban [Eliquis] 5 mg PO BID 04/01/22 03/01/24 History Aspirin EC [Ecotrin Low Dose] 81 mg PO DAILY 04/01/22 03/01/24 History Loratadine [Claritin] 10 mg PO DAILY 04/01/22 03/01/24 History Fluticasone/Vilanterol [Breo 1 puff INHALATION RT-DAILY 01/11/23 03/01/24 History Ellipta 200-25 Mcg Inhaler] OLANZapine [ZyPREXA] 20 mg PO HS 01/11/23 03/01/24 History Pantoprazole Sodium [Protonix] 40 mg PO DAILY 01/11/23 03/01/24 History Tiotropium [place] [Spiriva 1 cap INHALATION RT-DAILY 01/11/23 03/01/24 History Handihaler] Acetaminophen Tab [Tylenol] 650 mg PO Q4HR PRN tab 01/26/23 03/01/24 Rx Furosemide [Lasix] 40 mg PO DAILY #0 01/26/23 03/01/24 Rx Metoprolol Tartrate [Lopressor] 50 mg PO BID tab 01/26/23 03/01/24 Rx Midodrine [ProAmatine] 5 mg PO AC-TID tab 01/26/23 03/01/24 Rx lisinopriL [Zestril] 2.5 mg PO BID tab 01/26/23 03/01/24 Rx Albuterol Nebulized [Ventolin 2.5 mg INHALATION RT-Q6H 03/01/24 03/01/24 History Nebulized] Amiodarone [Cordarone] 100 mg PO DAILY 03/01/24 03/01/24 History Budesonide/Formoterol Fumarate 2 puff INHALATION RT-BID 03/01/24 03/01/24 History [Symbicort 160-4.5 Mcg Inhaler] Gabapentin [Neurontin] 100 mg PO TID 03/01/24 03/01/24 History Minocycline [Minocin] 50 mg PO BID 03/01/24 03/01/24 History PARoxetine HCL [Paxil] 30 mg PO DAILY 03/01/24 03/01/24 History Sennosides [Senokot] 8.6 mg PO BID 03/01/24 03/01/24 History Allergies Allergy/AdvReac Type Severity Reaction Status Date / Time No Known Allergies Allergy Verified 03/01/24 11:06 Physical Exam Vitals: Vital Signs Temp Pulse Resp BP Pulse Ox FiO2 03/01/24 11:46 50 03/01/24 11:44 87 03/01/24 11:32 87 14 105/73 97 03/01/24 11:00 97/67 03/01/24 10:47 98/70 03/01/24 10:19 100/75 03/01/24 10:00 77 103/69 03/01/24 09:08 87 03/01/24 09:07 50 03/01/24 09:00 83 18 102/78 96 03/01/24 08:43 83 98 60 03/01/24 08:41 60 03/01/24 08:00 76 15 114/82 96 03/01/24 06:45 86 19 97/77 95 03/01/24 06:30 80 15 85/64 97 03/01/24 06:15 74 16 95/74 96 03/01/24 06:00 82 24 104/80 96 03/01/24 05:45 83 42 H 100/81 79 L 03/01/24 05:30 84 16 102/66 86 L 03/01/24 05:15 84 16 94/72 90 L 03/01/24 05:00 84 16 78/62 92 L 03/01/24 04:45 90 18 78/50 92 L 03/01/24 04:30 95 18 78/62 97 03/01/24 04:15 96 20 85/59 95 03/01/24 04:00 94 14 71/53 97 03/01/24 03:45 85 23 75/54 03/01/24 03:30 84 17 66/49 03/01/24 03:15 85 18 82/53 91 L 03/01/24 03:10 84 03/01/24 03:00 80 16 84/55 89 L 03/01/24 02:59 60 03/01/24 02:56 79 60 03/01/24 02:45 88 14 70/59 90 L 03/01/24 02:37 16 03/01/24 02:30 80 22 58/43 82 L 03/01/24 02:15 26 H 78/64 87 L 03/01/24 02:06 16 85/60 82 L 03/01/24 02:04 97.8 F 84 16 70/64 88 L Intake and Output 02/29/24 03/01/24 03/01/24 22:59 06:59 14:59 Intake Total 88.895 176.050 Output Total 1050 1000 Balance -961.105 -823.950 Intake: Intake, IV Titration 88.895 176.050 Amount Norepinephrine 4 mg In 88.895 176.050 Sodium Chloride 0.9% 250 ml @ 0.03 MCG/KG/MIN 12. 961 mls/hr IV .[id number] ONE Rx#:[id number] Output: Urine 1050 1000 Uretheral (Shook) 200 1000 Other: Weight 113.398 kg Results CBC & Chem 7: 03/03/24 09:41 03/04/24 09:18 Labs: Abnormal Lab Results - Last 24 Hours (Table) 03/01/24 03/01/24 03/01/24 Range/Units 02:24 02:24 02:24 WBC 12.6 H (3.8-10.6) k/uL Plt Count 93 L (150-450) k/uL Neutrophils # 10.9 H (1.3-7.7) k/uL PT 13.4 H (10.0-12.5) sec INR 1.3 H (<1.2) ABG pH (7.35-7.45) ABG pCO2 (35-45) mmHg ABG pO2 (83-108) mmHg ABG Total CO2 (19-24) mmol/L ABG O2 Saturation (94-97) % Chloride 108 H (98-107) mmol/L Carbon Dioxide 19 L (22-30) mmol/L BUN 60 H (9-20) mg/dL Creatinine 5.35 H (0.66-1.25) mg/dL Glucose 126 H (74-99) mg/dL POC Glucose (mg/dL) (70-110) mg/dL Calcium 8.0 L (8.4-10.2) mg/dL Total Protein 6.0 L (6.3-8.2) g/dL Albumin 3.4 L (3.5-5.0) g/dL Urine Protein (Negative) 03/01/24 03/01/24 03/01/24 Range/Units 02:25 02:41 02:47 WBC (3.8-10.6) k/uL Plt Count (150-450) k/uL Neutrophils # (1.3-7.7) k/uL PT (10.0-12.5) sec INR (<1.2) ABG pH 7.19 L* (7.35-7.45) ABG pCO2 62 H (35-45) mmHg ABG pO2 69 L (83-108) mmHg ABG Total CO2 26 H (19-24) mmol/L ABG O2 Saturation 91.6 L (94-97) % Chloride (98-107) mmol/L Carbon Dioxide (22-30) mmol/L BUN (9-20) mg/dL Creatinine (0.66-1.25) mg/dL Glucose (74-99) mg/dL POC Glucose (mg/dL) 121 H (70-110) mg/dL Calcium (8.4-10.2) mg/dL Total Protein (6.3-8.2) g/dL Albumin (3.5-5.0) g/dL Urine Protein Trace H (Negative) 03/01/24 Range/Units 08:50 WBC (3.8-10.6) k/uL Plt Count (150-450) k/uL Neutrophils # (1.3-7.7) k/uL PT (10.0-12.5) sec INR (<1.2) ABG pH 7.27 L (7.35-7.45) ABG pCO2 48 H (35-45) mmHg ABG pO2 (83-108) mmHg ABG Total CO2 (19-24) mmol/L ABG O2 Saturation (94-97) % Chloride (98-107) mmol/L Carbon Dioxide (22-30) mmol/L BUN (9-20) mg/dL Creatinine (0.66-1.25) mg/dL Glucose (74-99) mg/dL POC Glucose (mg/dL) (70-110) mg/dL Calcium (8.4-10.2) mg/dL Total Protein (6.3-8.2) g/dL Albumin (3.5-5.0) g/dL Urine Protein (Negative) Assessment and Plan Plan: 1patient presented to hospital with acute respiratory failure in this patient who is currently hypoxic on BiPAP patient did have a left-sided infiltrate on chest x-ray elevated white count concerning for pneumonia to be a likely source keeping in mind patient being out of the hospital could be gram-negative brooks jarrell 2-try to obtain a sputum check a CRP procalcitonin and urine for urine antigen 3-patient to continue the Zosyn and doxycycline while waiting for the culture to finalize We will follow on clinical condition and cultures to further adjust medication if needed Thank you for this consultation we will follow the patient along with you Dictation was produced using [employer] dictation software. please excuse any grammatical, word or spelling errors. Time with Patient: Greater than 30
[2024-03-01] MEDS: OLANZapine 10 MG TAB PO SCH (20:53)
[2024-03-01] MEDS: APIXABAN 5 MG TAB PO SCH (20:53)
[2024-03-01] MEDS: METOPROLOL TARTRATE 50 MG TAB PO SCH (21:00)
[2024-03-01] MEDS: LATANOPROST 0.005% OPHTH DROPS 2.5 ML BTL LEFT EYE SCH (21:02)
[2024-03-02] MEDS: BENZONATATE 100 MG CAP PO PRN (00:26)
[2024-03-02] MEDS ORDERED: VANCOMYCIN 1,750 MG in SODIUM CHLORIDE 0.9% 500 ML 500 ML IVPB ONE (06:00)
[2024-03-02] MEDS: LEVOTHYROXINE 125 MCG TAB PO SCH (06:05)
[2024-03-02 07:23] LABS: Basophils % (A) 0 %; Eosinophils # (A) 0.1 k/uL (0-0.7); Eosinophils % (A) 0 %; HCT 44.8 % (39.0-53.0); HGB 14.1 gm/dL (13.0-17.5); Lymphocytes # (A) 1.2 k/uL (1.0-4.8); Lymphocytes % (A) 7 %; MCH 30.3 pg (25.0-35.0); MCHC 31.4 g/dL (31.0-37.0); MCV 96.6 fL (80.0-100.0); Mean Platelet Volume 12.7; Monocytes # (A) 0.6 k/uL (0-1.0); Monocytes % (A) 4 %; Neutrophils # (A) 14.3 k/uL (1.3-7.7); Neutrophils % (A) 88 %; RBC 4.63 m/uL (4.30-5.90); RDW 14.2 % (11.5-15.5); WBC 16.3 k/uL (3.8-10.6)
[2024-03-02 07:25] LABS: Platelet Count 93 k/uL (150-450)
[2024-03-02] MEDS ORDERED: NON FORMULARY DRUG (Fluticasone/Vilanterol [Breo Ellipta 200-25 Mcg Inhaler] 1 EACH Blst.W INHALATION SCH (08:00)
[2024-03-02] MEDS: ASPIRIN 81 MG PO SCH (08:32)
[2024-03-02] MEDS: PANTOPRAZOLE 40 MG TABLET PO SCH (08:33)
[2024-03-02] MEDS: PARoxetine 10 MG TAB PO SCH (08:34)
--- NOTE | 2024-03-02 08:52 | XR ---
EXAMINATION TYPE: XR chest 1V portable DATE OF EXAM: 03/02/2024 Comparison: 03/01/2024 Clinical History: 69-year-old male pneumonia Findings: Extensive abnormal opacity left mid and lower lung persists with some colonic air noted here. Additio nal patchy opacity extends up to the left upper lung may be slightly increased. Left heart margin obs cured by the above findings. Impression: Known, very large hiatal hernia. Review of prior studies shows the entire stomach and sizable portion of the transverse colon herniated into the chest. This accounts for much of the density on the left. However, there are superimposed airspace disease extending into the left upper lobe that appears inc reased.
[2024-03-02 09:41] LABS: ALT 23 U/L (4-49); AST 26 U/L (17-59); African American GFR (CKD) 39 (>60 ml/min/1.73 sqM); Alkaline Phosphatase 77 U/L (38-126); Anion Gap 2 mmol/L; Blood Urea Nitrogen 42 mg/dL (9-20); C Reactive Protein 4.1 mg/dL (<1.0); Calcium 8.5 mg/dL (8.4-10.2); Carbon Dioxide 25 mmol/L (22-30); Chloride 118 mmol/L (98-107); Glucose 128 mg/dL (74-99); Non-African American GFR(CKD) 33 (>60 ml/min/1.73 sqM); Phosphorus 3.1 mg/dL (2.5-4.5); Potassium 4.3 mmol/L (3.5-5.1); Sodium 145 mmol/L (137-145); Total Bilirubin 0.7 mg/dL (0.2-1.3); Total Protein 5.6 g/dL (6.3-8.2)
[2024-03-02] MEDS: AMIODARONE 100 MG TAB PO SCH (11:14)
--- NOTE | 2024-03-02 11:36 | P.PN ---
Subjective Progress Note Date: 03/02/24 * 69-year-old patient with past medical history significant for COPD, congestive heart failure, history of bipolar disorder, hypothyroid, hyperlipidemia, atrial fibrillation previous history of PEA cardiac arrest in 2022presents to the emergency department secondary to altered mental status, respiratory distress low blood pressure and hypoxia. Patient was accepted as a crossover from an outside hospital for renal failure pneumonia respiratory failure and septic shock. * workup initiated in ER included CBC which were WBC of 12.6 hemoglobin 15.7 platelet count of 93, INR of 1.3 * Blood gas obtained showed pH of 7.19 pCO2 62 * serum chemistry obtained showed creatinine of 5.35 previous creatinine of 1.39. serum chemistry obtained showed sodium 138 potassium 4.6 carbon dioxide 19 BU and 60. Blood glucose 126. Albumin of 3.4 * 03/02/24: Patient seen and evaluated bedside patient remains admitted ER room 4 waiting for bed in medical ICU. Seen by printing machine mechanic in ED, patient weaned off Levophed, follow-up blood work ordered. Blood pressure has improved, patient to go to general medical floor/stepdown unit, mentation has improved alert and oriented x 4. Weaned off BiPAP on nasal cannula PHYSICAL EXAMINATION: GENERAL: The patient is alert and oriented x 4 ill appearance, nasal cannula HEENT: Pupils are round and equally reacting to light. EOMI CARDIOVASCULAR: S1 and S2 present. No murmurs, rubs, or gallops. PULMONARY: decreased breath sounds bilaterally ABDOMEN: Soft, nontender, nondistended, normoactive bowel sounds. No palpable organomegaly. MUSCULOSKELETAL: No joint swelling or deformity. EXTREMITIES: No cyanosis, clubbing, or pedal edema. NEUROLOGICAL: Exam limited secondary to medical condition assessment and plan * Septic shock * Left lower lobe pneumonia * acute hypoxemic hypercapnic respiratory failure * Acute exacerbation of COPD * Acute renal failure * Metabolic acidosis secondary to underlying sepsis and renal failure * History of atrial fibrillation * chronic congestive heart failure systolic and diastolic dysfunction * History of cardiac arrest/pulseless electrical activity January 2023 * Upon admission patient was critically ill waiting for ICU bed however significant improvement noted and will go to medical floor * In regards to septic shock continue patient onnorepinephrine, continue broad- spectrum antibiotic Zosyn and doxycycline, blood cultures collected * In regards to COPD serial arterial blood gas reviewed, continue breathing treatment continue with noninvasive ventilation as needed * In regards to renal failure renal ultrasound negative for hydronephrosis , status post Shook catheter placement for monitoring of intake and output * In regards to history of atrial fibrillation, patient on amiodarone, Eliquis, aspirin, metoprolol * In regards to previous history of congestive heart failure,patient to be r esuscitated with fluids secondary to shock will do accurate intake and output * status is full code Objective - Vital Signs Vital signs: Vital Signs Temp 97.0 F L 03/02/24 07:48 Pulse 102 H 03/02/24 08:30 Resp 18 03/02/24 08:30 BP 122/81 03/02/24 08:30 Pulse Ox 91 L 03/02/24 08:30 FiO2 50 03/02/24 07:50 Intake & Output 03/01/24 03/02/24 03/02/24 18:59 06:59 18:59 Intake Total 280.676 26.136 Output Total 1800 1900 Balance -1519.324 -1873.864 Intake: Intake, IV Titration 280.676 26.136 Amount Norepinephrine 4 mg In 280.676 26.136 Sodium Chloride 0.9% 250 ml @ 0.03 MCG/KG/MIN 12. 961 mls/hr IV .[id number] ONE Rx#:[id number] Output: Urine 1800 1900 Uretheral (Shook) 1800 Other: # Bowel Movements 0 - Labs CBC & Chem 7: 03/02/24 06:50 03/02/24 06:50 Labs: Abnormal Lab Results - Last 24 Hours (Table) 03/01/24 03/02/24 Range/Units 08:50 06:50 WBC 16.3 H (3.8-10.6) k/uL Plt Count 93 L (150-450) k/uL Neutrophils # 14.3 H (1.3-7.7) k/uL ABG pH 7.27 L (7.35-7.45) ABG pCO2 48 H (35-45) mmHg
[2024-03-02] MEDS: TIOTROPIUM 2.5 MCG INHALER INHALATION SCH (11:47)
--- NOTE | 2024-03-02 11:56 | P.PN ---
Subjective Patient is seen for follow-up for acute kidney injury. He was admitted with significant mental status changes and noted to be hypotensive with hypercapnic acute respiratory failure. Patient was maintained on BiPAP. He is also maintained on IV fluids. Serum creatinine improved to 2.0 from 5.3 on initial admission. Patient has an indwelling Shook catheter with good urine output. Objective - Vital Signs Vital signs: Vital Signs Temp 97.0 F L 03/02/24 07:48 Pulse 110 H 03/02/24 11:47 Resp 18 03/02/24 08:30 BP 122/81 03/02/24 08:30 Pulse Ox 91 L 03/02/24 08:30 FiO2 50 03/02/24 07:50 Intake & Output 03/01/24 03/02/24 03/02/24 18:59 06:59 18:59 Intake Total 280.676 26.136 Output Total 1800 1900 Balance -1519.324 -1873.864 Weight 113.398 kg Intake: Intake, IV Titration 280.676 26.136 Amount Norepinephrine 4 mg In 280.676 26.136 Sodium Chloride 0.9% 250 ml @ 0.03 MCG/KG/MIN 12. 961 mls/hr IV .[id number] ONE Rx#:[id number] Output: Urine 1800 1900 Uretheral (Shook) 1800 Other: # Bowel Movements 0 - Exam Patient is awake, comfortable, no acute distress. 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 Acute kidney injury most likely ATN with possible underlying urine retent ion, status post Shook catheter placement.maintained on IV fluids. UA is benign. Ultrasound shows no evidence of hydronephrosis. 2. Metabolic acidosis associated with acute kidney injury 3. CO2 retention and hypercapnic respiratory failure status post BiPAP, improved 4. History of hypertension with blood pressure currently low. Midodrine and lisinopril noted on home med list. Plan: continue with IV fluids Continue with Shook catheter Continue to hold off on PANTERA inhibitor's Repeat labs in a.m.
--- NOTE | 2024-03-02 16:02 | P.PN ---
Subjective Progress Note Date: 03/02/24 This is a 69-year-old white male with history of multiple medical problems including COPD, obesity, chronic congestive heart failure, bipolar disorder, hypothyroidism, chronic atrial fibrillation, patient is familiar to my service, I saw him back in January of 2023, patient had at the time in hospital cardiac arrest requiring CPR and subsequent return of spontaneous circulation CPR was as long as 5 minutes. Other medical problems at that time included underlying COPD, hypertension, bilateral pneumonia, hypertension, bipolar disorder, and generalized anxiety disorder patient was actually discharged back then on 01/26/2023, patient had follow-up with cardiology few months later, and he underwent cardiac catheterization where he was found to have minimal coronary artery disease, elevated left-sided filling pressures, ejection fraction was 60 to 65% at that time. Hence the patient was advised mostly medical therapy. On this admission the patient came in as a referral from an outside facility for pneumonia wherein he presented with symptoms of shortness of breath, hypoxia, low blood pressure, abnormal labs with findings of renal failure, patient was evaluated by the ER physician, and he was in significant respiratory distress placed on BiPAP. With IPAP of 14, EPAP of 6, FiO2 of 60%, ABG showed a pO2 of 69 pCO2 62 pH of 7. 1 9, consistent with a picture of metabolic and respiratory acidosis, for his metabolic acidosis I recommended an amp of bicarb, follow-up ABG showed a pO2 of 95 pCO2 48 pH of 7.26, FiO2 was cut down to 50%. Patient is requiring norepinephrine at 0.11 mcg/kg/min he received an amp of bicarb, and antibiotics webb I am recommending Zosyn every 12 hours. Chest x-ray showed a large hiatal hernia with bilateral bibasilar atelectasis, underlying pneumonia is not entirely ruled out. Especially in the left lung base and I did evaluate the patient in the ER, patient had negative screening for influenza A influenza B RSV and COVID-19 I will admit the patient to the ICU for further treatment of his sepsis/septic shock presentation and acute on chronic hypoxic and hypercapnic respiratory failure with severe metabolic respiratory and metabolic acidosis. The patient is seen today March 02, 2024 in follow-up on the in the end emergency department. He is currently sitting up on a stretcher. Awake and alert in no acute distress. He is feeling actually quite back to his baseline compared to yesterday. Very alert and talkative. He is currently off the BiPAP and on 4 L/min per nasal cannula. He is afebrile. Slightly tachycardic. Chest x-ray shows a very large hiatal hernia. Some superimposed airspace disease extending to the left upper lobe. White count 16.3. Hemoglobin 14.1. Platelets 93,000. Sodium 145. Potassium 4.3. Bicarb 25. BUN 42. Creatinine 2.01. Glucose 128. Procalcitonin 0.04. He is continued on DuoNeb ventilations, Symbicort, Areva, Solu-Medrol. Antibiotics in form of Zosyn and doxycycline. Anticoagulated with Eliquis. Objective - Vital Signs Vital signs: Vital Signs Temp 97.0 F L 03/02/24 07:48 Pulse 115 H 03/02/24 15:42 Resp 18 03/02/24 15:16 BP 104/84 03/02/24 15:16 Pulse Ox 92 L 03/02/24 15:16 FiO2 50 03/02/24 07:50 Intake & Output 03/01/24 03/02/24 03/02/24 18:59 06:59 18:59 Intake Total 280.676 26.136 Output Total 1800 1900 Balance -1519.324 -1873.864 Weight 113.398 kg Intake: Intake, IV Titration 280.676 26.136 Amount Norepinephrine 4 mg In 280.676 26.136 Sodium Chloride 0.9% 250 ml @ 0.03 MCG/KG/MIN 12. 961 mls/hr IV .[id number] ONE Rx#:[id number] Output: Urine 1800 1900 Uretheral (Shook) 1800 Other: # Bowel Movements 0 - Exam GENERAL EXAM: Alert, oriented, disheveled 69-year-old male patient, on 4 L nasal cannula, comfortable in no apparent distress. HEAD: Normocephalic. EYES: Normal reaction of pupils, equal size. NOSE: Clear with pink turbinates. THROAT: No erythema or exudates. NECK: No masses, no JVD. CHEST: No chest wall deformity. LUNGS: Equal air entry with no crackles, wheeze, rhonchi or dullness. Diminished in the left lung base CVS: S1 and S2 normal with no audible murmur, regular rhythm. ABDOMEN: No hepatosplenomegaly, normal bowel sounds, no guarding or rigidity. SPINE: No scoliosis or deformity SKIN: No rashes CENTRAL NERVOUS SYSTEM: No focal deficits, tone is normal in all 4 extremities. EXTREMITIES: There is no peripheral edema. No clubbing, no cyanosis. Peripheral pulses are intact. - Labs CBC & Chem 7: 03/02/24 06:50 03/02/24 06:50 Labs: Abnormal Lab Results - Last 24 Hours (Table) 03/02/24 03/02/24 Range/Units 06:50 06:50 WBC 16.3 H (3.8-10.6) k/uL Plt Count 93 L (150-450) k/uL Neutrophils # 14.3 H (1.3-7.7) k/uL Chloride 118 H (98-107) mmol/L BUN 42 H (9-20) mg/dL Creatinine 2.01 H (0.66-1.25) mg/dL Glucose 128 H (74-99) mg/dL C-Reactive Protein 4.1 H (<1.0) mg/dL Total Protein 5.6 L (6.3-8.2) g/dL Albumin 3.0 L (3.5-5.0) g/dL Assessment and Plan Assessment: Acute hypoxic and hypercapnic respiratory failure. To an acute exacerbation of chronic obstructive pulmonary disease. Viral screen negative. Procalcitonin negative. Acute on chronic kidney injury, possible ATN, BUN is 60 creatinine 5.35 baseline creatinine is in the range of 1.39 back in December of 2023, it was normal in January of 2023 Acute exacerbation of COPD Large hiatal hernia Acute respiratory and acute metabolic acidosis secondary to his pulmonary status and secondary to renal status History of chronic atrial fibrillation History of diastolic congestive heart failure and previous cardiac arrest/pulseless electrical activity back in January of 2023 Plan: The patient was seen and evaluated Chest x-ray, labs and medications reviewed Currently off BiPAP and on 3 L nasal cannula Alert and oriented Downgrade to selective care unit Procalcitonin within normal limits Discontinue antibiotics Continue bronchodilators and steroids BiPAP as needed Titrate the FiO2 as tolerated We will continue to follow I have personally seen and examined the patient, performed the documentation and the assessment and plan as written. Number of minutes spent on the visit: 10.
[2024-03-02 16:34] LABS: Glucose,Whole Blood 133 mg/dL (70-110)
[2024-03-02] MEDS ORDERED: METOPROLOL TARTRATE 5 MG/5 ML VIAL IVP PRN (16:41)
[2024-03-02] MEDS: NICOTINE 21MG/24HR PATCH TRANSDERM SCH (17:06)
[2024-03-02] MEDS: PIPERACILLIN-TAZOBACTAM 3.375 GM in SODIUM CHLORIDE 0.9% 100 ML IVPB SCH (17:07)
[2024-03-02 20:01] LABS: Glucose,Whole Blood 130 mg/dL (70-110)
[2024-03-02] MEDS: DOXYCYCLINE 100 MG CAP PO SCH (21:16)
[2024-03-03 06:05] LABS: Glucose,Whole Blood 134 mg/dL (70-110)
--- NOTE | 2024-03-03 10:09 | P.PN ---
Subjective Patient is seen in follow-up for acute kidney injury. Renal function improving. Has Shook catheter. Receiving IV fluids. Nonoliguric. Oral intake is good. No vomiting or diarrhea. Vital signs are stable. General: No acute distress. HEENT: Head exam is unremarkable. LUNGS: No audible rhonchi or wheezes. HEART: Rate and Rhythm are regular. ABDOMEN: Nontender. EXTREMITITES: No edema. Objective - Vital Signs Vital signs: Vital Signs Temp 97.9 F 03/03/24 07:45 Pulse 108 H 03/03/24 09:03 Resp 20 03/03/24 07:45 BP 132/82 03/03/24 07:45 Pulse Ox 91 L 03/03/24 07:45 FiO2 50 03/02/24 23:20 Intake & Output 03/02/24 03/03/24 03/03/24 18:59 06:59 18:59 Intake Total 0 10 118 Output Total 1450 Balance 0 -1440 118 Weight 113.398 kg Intake: IV 10 0.9 10 Oral 0 118 Output: Urine 1450 Other: Voiding Method Indwelling Catheter Indwelling Catheter - Labs CBC & Chem 7: 03/02/24 06:50 03/02/24 06:50 Labs: Abnormal Lab Results - Last 24 Hours (Table) 03/02/24 03/02/24 03/03/24 Range/Units 16:32 20:00 06:03 POC Glucose (mg/dL) 133 H 130 H 134 H (70-110) mg/dL Microbiology - Last 24 Hours (Table) 03/01/24 10:23 Nasal Screen MRSA/MSSA - Final Nasal Swab Assessment and Plan Plan: Assessment: 1. Acute kidney injury secondary to urinary retention with component of ATN. UA benign. No hydronephrosis noted on kidney ultrasound. Renal function improving. Creatinine over 5 on admission and down to 2.01 yesterday. 2. Metabolic acidosis secondary to acute kidney injury. Improved. 3. Benign hypertension. Controlled. 4. Acute hypoxic and hypercapnic respiratory failure. Being treated for acute COPD exacerbation. Plan: Maintain IV fluids. Maintain Shook catheter. Add Flomax. Hold midodrine for systolic blood pressure greater than 110.
[2024-03-03 11:07] LABS: HCT 47.7 % (39.0-53.0); HGB 14.8 gm/dL (13.0-17.5); MCH 30.4 pg (25.0-35.0); MCHC 31.1 g/dL (31.0-37.0); MCV 97.7 fL (80.0-100.0); Mean Platelet Volume 13.3; RBC 4.88 m/uL (4.30-5.90); RDW 14.2 % (11.5-15.5); WBC 15.7 k/uL (3.8-10.6)
[2024-03-03 11:15] LABS: African American GFR (CKD) 66 (>60 ml/min/1.73 sqM); Anion Gap 2 mmol/L; Blood Urea Nitrogen 35 mg/dL (9-20); Calcium 9.1 mg/dL (8.4-10.2); Carbon Dioxide 26 mmol/L (22-30); Chloride 118 mmol/L (98-107); Glucose 126 mg/dL (74-99); Non-African American GFR(CKD) 57 (>60 ml/min/1.73 sqM); Potassium 4.5 mmol/L (3.5-5.1); Sodium 146 mmol/L (137-145)
[2024-03-03 11:16] LABS: Platelet Count 92 k/uL (150-450)
[2024-03-03 11:43] LABS: Glucose,Whole Blood 140 mg/dL (70-110)
--- NOTE | 2024-03-03 12:13 | P.CRDCN ---
History of Present Illness Consult date: 03/03/24 Consult reason: atrial fibrillation (With RVR) History of present illness: History of present illness: This is a 69-year-old male patient of Dr. Jasso with past medical history of paroxysmal atrial fibrillation, hyperlipidemia, mildly reduced EF of 40 to 45% with recovered EF, COPD, history of in-hospital cardiac arrest requiring CPR for 5 minutes with return of spontaneous circulation, significant hiatal hernia with near complete stomach in the thoracic cavity, AVNRT. We have been asked to evaluate the patient for A-fib with RVR. On patient's last office visit on 11/01/2023, there was discussion regarding cardiac ablation for atrial fibrillation. Patient presented to the hospital due to shortness of breath, hypoxia, low blood pressure and abnormal lab work as a transfer for pneumonia and respiratory failure from another facility. Patient presented on 03/01. He has been followed by infectious disease, nephrology, pulmonary medicine. Patient was initially admitted into the intensive care unit for sepsis and septic shock and is now on the cardiac stepdown unit. Patient has been resumed on his home cardiac medications. His mental status is improving. EKG atrial fibrillation with ventricular rate of 91 bpm. Telemetry yesterday afternoon was atrial fibrillation up to the 150s and currently running in the irregular 109. Chest x-ray: Large hiatal hernia with entire stomach sizable portion of transverse colon herniated into the chest. Superimposed airspace disease extending into the left upper lobe that appears increased. WBC 16.3, hemoglobin 14.1, platelet count 93. INR 1.3. Sodium 145, potassium 4.3, chloride 118, initial CO2 1925. Initial BUN 60 and repeat 42. Initial creatinine 5.35 and now 2.01. Troponin negative x 1. C-reactive protein 4.1. proBNP 721. Procalcitonin 0.04. Home cardiac medications: Amiodarone 100 mg daily, Eliquis 5 mg twice daily, aspirin 81 mg daily, Lasix 40 mg daily, lisinopril 2.5 mg twice daily, Lopressor 50 mg twice daily, midodrine 5 mg 3 times daily. Cardiac catheterization performed 04/16/[address] Jasso revealed mild to moderate CAD with 30% RCA, 40% LAD stenosis. Elevated left-sided filling pressures. EF 60 to 65%. [facility] and cardioversion performed on 11/16/2020 Echocardiogram performed on 01/12/2023 revealed poor quality. Mild global decrease in contractility. Mild mitral annular calcification and aortic sclerosis. Mild tricuspid regurgitation. Right-sided pressures are not well quantified. No pericardial effusion. EF 45 to 50%. Review Of Systems: At the time of my exam: CONSTITUTIONAL: Denies fever or chills. Reports generalized weakness. HEENT: Denies blurred vision, vision changes, or eye pain. Denies hemoptysis CARDIOVASCULAR: Denies chest pain. Denies orthopnea. Denies PND. Occasional palpitations RESPIRATORY: Denies shortness of breath. GASTROINTESTINAL: Denies abdominal pain. Denies nausea or vomiting. HEMATOLOGIC: Denies bleeding disorders. GENITOURINARY: Denies any blood in urine. SKIN: Denies pruitis. Denies rash. Physical examination: Gen: This is a 69-year-old male in no acute distress VS: reviewed blood pressure 114/78, heart rate 95, pulse ox 88% on 6 L. Patient was on BiPAP during the night. HEENT: Head is atraumatic, normocephalic. Pupils equal, round. Sclerae is anicteric. NECK: Supple. No JVD. LUNGS: Diminished breath sounds but otherwise clear to auscultation. No wheezes or rhonchi. No intercostal retractions. HEART: Irregular rate and rhythm. No murmur. ABDOMEN: Soft No tenderness. EXTREMITIES: No pedal edema. No calf tenderness. NEUROLOGICAL: Patient is awake, alert and oriented x3. Assessment: Paroxysmal atrial fibrillation with RVR Acute hypoxic and hypercapnic respiratory failure Acute exacerbation of COPD Possible aspiration pneumonia, sepsis, septic shock Acute kidney injury Metabolic acidosis Thrombocytopenia Hyperlipidemia History of reduced EF that has recovered Tobacco use and dependence Significant hiatal hernia History of in-hospital CPR with return of spontaneous circulation Plan: Continue patient's home cardiac medications Increase metoprolol to tartrate to 75 mg twice daily Obtain 2-D echocardiogram and Doppler study to assess cardiac structure and function Further recommendations to follow based upon clinical course Thank you kindly for this consultation. Nurse practitioner note has been reviewed, I agree with documented findings and plan of care. Patient was seen and examined. Past Medical History Past Medical History: Atrial Fibrillation, COPD, Eye Disorder, Hyperlipidemia, Hypertension, Osteoarthritis (OA), Thyroid Disorder Additional Past Medical History / Comment(s): Sober 1978, hiatal hernia, glaucoma left eye, possible stroke behind left eye per opthamologist. arthritis in back,cystic acne on back to see ob gyn. History of Any Multi-Drug Resistant Organisms: None Reported Past Surgical History: Heart Catheterization Additional Past Surgical History / Comment(s): HYDROCELE surg. x2, hemorr hoidectomy, colonoscopy, cataract surgery tamara eyes Past Anesthesia/Blood Transfusion Reactions: No Reported Reaction Additional Past Anesthesia/Blood Transfusion Reaction / Comment(s): no blood transfusions Past Psychological History: Anxiety, Bipolar, Panic Disorder Additional Psychological History / Comment(s): senior living from [id number] Smoking Status: Current every day smoker Past Alcohol Use History: None Reported Additional Past Alcohol Use History / Comment(s): sober 1978., down to 8 cigs/day from 1ppd, had quit on & off since teens, uses nicotine patch off and on. Past Drug Use History: Marijuana Additional Drug Use History / Comment(s): smokes marijauna daily, pt aware not to use 24 hrs before his procedure. - Past Family History Mother Family Medical History: Diabetes Mellitus Father Family Medical History: Coronary Artery Disease (CAD) Sister(s) Family Medical History: Coronary Artery Disease (CAD), Diabetes Mellitus, Hypertension Medications and Allergies Home Medications Medication Instructions Recorded Confirmed Type Latanoprost/Pf [Latanoprost 0.005% 1 drop LEFT EYE HS 08/18/20 03/01/24 History Eye Drop] Levothyroxine Sodium 125 mcg PO DAILY 08/18/20 03/01/24 History Albuterol Sulfate [Albuterol 1 puff INHALATION RT-Q4H PRN 04/01/22 03/01/24 History Sulfate Hfa] Apixaban [Eliquis] 5 mg PO BID 04/01/22 03/01/24 History Aspirin EC [Ecotrin Low Dose] 81 mg PO DAILY 04/01/22 03/01/24 History Loratadine [Claritin] 10 mg PO DAILY 04/01/22 03/01/24 History Fluticasone/Vilanterol [Breo 1 puff INHALATION RT-DAILY 01/11/23 03/01/24 History Ellipta 200-25 Mcg Inhaler] OLANZapine [ZyPREXA] 20 mg PO HS 01/11/23 03/01/24 History Pantoprazole Sodium [Protonix] 40 mg PO DAILY 01/11/23 03/01/24 History Tiotropium [place] [Spiriva 1 cap INHALATION RT-DAILY 01/11/23 03/01/24 History Handihaler] Acetaminophen Tab [Tylenol] 650 mg PO Q4HR PRN tab 01/26/23 03/01/24 Rx Furosemide [Lasix] 40 mg PO DAILY #0 01/26/23 03/01/24 Rx Metoprolol Tartrate [Lopressor] 50 mg PO BID tab 01/26/23 03/01/24 Rx Midodrine [ProAmatine] 5 mg PO AC-TID tab 01/26/23 03/01/24 Rx lisinopriL [Zestril] 2.5 mg PO BID tab 01/26/23 03/01/24 Rx Albuterol Nebulized [Ventolin 2.5 mg INHALATION RT-Q6H 03/01/24 03/01/24 History Nebulized] Amiodarone [Cordarone] 100 mg PO DAILY 03/01/24 03/01/24 History Budesonide/Formoterol Fumarate 2 puff INHALATION RT-BID 03/01/24 03/01/24 History [Symbicort 160-4.5 Mcg Inhaler] Gabapentin [Neurontin] 100 mg PO TID 03/01/24 03/01/24 History Minocycline [Minocin] 50 mg PO BID 03/01/24 03/01/24 History PARoxetine HCL [Paxil] 30 mg PO DAILY 03/01/24 03/01/24 History Sennosides [Senokot] 8.6 mg PO BID 03/01/24 03/01/24 History Allergies Allergy/AdvReac Type Severity Reaction Status Date / Time No Known Allergies Allergy Verified 03/01/24 11:06 Physical Exam Vitals: Vital Signs Temp Pulse Pulse Resp BP BP Pulse Ox 03/03/24 04:00 97.8 F 95 20 114/78 88 L 03/03/24 01:04 94 20 03/02/24 23:20 98.2 F 94 20 93/66 93 L 03/02/24 21:43 20 92 L 03/02/24 21:42 22 86 L 03/02/24 20:00 98.9 F 124 H 116 H 20 115/81 93 L 03/02/24 19:45 120 H 03/02/24 16:15 115 H 03/02/24 16:10 98.5 F 115 H 20 125/80 89 L 03/02/24 15:42 115 H 03/02/24 15:26 118 H 03/02/24 15:16 102 H 18 104/84 92 L 03/02/24 14:07 107 H 18 101/73 92 L 03/02/24 12:02 114 H 03/02/24 12:00 105 H 18 106/72 91 L 03/02/24 11:47 110 H 03/02/24 10:00 105 H 22 117/77 92 L 03/02/24 09:00 103 H 18 98/83 93 L 03/02/24 08:30 102 H 18 122/81 91 L 03/02/24 08:25 91 L 03/02/24 08:06 112 H FiO2 03/03/24 04:00 03/03/24 01:04 03/02/24 23:20 50 03/02/24 21:43 50 03/02/24 21:42 03/02/24 20:00 50 03/02/24 19:45 50 03/02/24 16:15 03/02/24 16:10 03/02/24 15:42 03/02/24 15:26 03/02/24 15:16 03/02/24 14:07 03/02/24 12:02 03/02/24 12:00 03/02/24 11:47 03/02/24 10:00 03/02/24 09:00 03/02/24 08:30 03/02/24 08:25 03/02/24 08:06 Intake and Output 03/02/24 03/03/24 03/03/24 22:59 06:59 14:59 Intake Total 10 Output Total 500 950 Balance -490 -950 Intake: IV 10 0.9 10 Oral 0 Output: Urine 500 950 Other: Voiding Method Indwelling Catheter Indwelling Catheter Results 03/03/24 09:41 03/03/24 09:41 Cardiac Enzymes 03/02/24 Range/Units 06:50 AST 26 (17-59) U/L Comprehensive Metabolic Panel 03/02/24 Range/Units 06:50 Sodium 145 (137-145) mmol/L Potassium 4.3 (3.5-5.1) mmol/L Chloride 118 H (98-107) mmol/L Carbon Dioxide 25 (22-30) mmol/L BUN 42 H (9-20) mg/dL Creatinine 2.01 H (0.66-1.25) mg/dL Glucose 128 H (74-99) mg/dL Calcium 8.5 (8.4-10.2) mg/dL AST 26 (17-59) U/L ALT 23 (4-49) U/L Alkaline Phosphatase 77 (38-126) U/L Total Protein 5.6 L (6.3-8.2) g/dL Albumin 3.0 L (3.5-5.0) g/dL Current Medications Generic Name Dose Route Start Last Admin Trade Name Freq PRN Reason Stop Dose Admin Acetaminophen 650 mg 03/01/24 09:12 Acetaminophen Tab 325 Mg Tab PO Q6HR PRN Mild Pain or Fever > 100.5 Albuterol/Ipratropium 3 ml 03/01/24 08:00 03/02/24 19:43 Ipratropium-Albuterol 3 Ml Neb INHALATION 3 ml RT-QID TESFAYE Administration Amiodarone HCl 100 mg 03/02/24 09:00 03/02/24 11:14 Amiodarone 100 Mg Tab PO 100 mg DAILY TESFAYE Administration Apixaban 5 mg 03/01/24 21:00 03/02/24 21:12 Apixaban 5 Mg Tab PO 5 mg BID TESFAYE Administration Protocol Aspirin 81 mg 03/02/24 09:00 03/02/24 08:32 Aspirin 81 Mg PO 81 mg DAILY TESFAYE Administration Benzonatate 100 mg 03/01/24 09:15 03/02/24 00:26 Benzonatate 100 Mg Cap PO 100 mg TID PRN Administration Cough Budesonide/Formoterol Fumarate 2 puff 03/01/24 20:00 03/02/24 19:43 Symbicort 160-4.5 Mcg Inhaler INHALATION Not Given RT-BID TESFAYE Doxycycline Monohydrate 100 mg 03/02/24 21:00 03/02/24 21:16 Doxycycline 100 Mg Cap PO 100 mg BID TESFAYE Administration Protocol Guaifenesin 600 mg 03/01/24 09:15 03/02/24 21:12 Guaifenesin 600 Mg Tablet.Er PO 600 mg Q12HR TESFAYE Administration Sodium Chloride 1,000 mls @ 75 mls/hr 03/01/24 09:30 03/02/24 16:05 Saline 0.9% IV 75 mls/hr .[id number] TESFAYE Administration Piperacillin Sod/Tazobactam 100 mls @ 25 mls/hr 03/02/24 17:00 03/03/24 00:15 Sod 3.375 gm/ Sodium Chloride IVPB 25 mls/hr Q8H TESFAYE Administration Protocol Latanoprost 1 drops 03/01/24 21:00 03/02/24 21:12 Latanoprost 0.005% Ophth Drops 2.5 Ml Btl LEFT EYE 1 drops HS TESFAYE Administration Levothyroxine Sodium 125 mcg 03/02/24 06:30 03/03/24 06:01 Levothyroxine 125 Mcg Tab PO 125 mcg 0630 TESFAYE Administration Methylprednisolone Sodium Succinate 60 mg 03/01/24 12:00 03/03/24 06:01 Methylprednisolone Sod Succi 125 Mg/2 Ml Vial IV 60 mg Q6HR TESFAYE Administration Metoprolol Tartrate 50 mg 03/01/24 21:00 03/02/24 21:13 Metoprolol Tartrate 50 Mg Tab PO 50 mg BID TESFAYE Administration Metoprolol Tartrate 5 mg 03/02/24 16:41 Metoprolol Tartrate 5 Mg/5 Ml Vial IVP Q6HR PRN Heart Rate - HIGH Midodrine 5 mg 03/01/24 17:30 03/03/24 06:01 Midodrine 5 Mg Tab PO 5 mg AC-TID TESFAYE Administration Miscellaneous Information 1 each 03/01/24 09:11 Pneumonia Protocol Utilized 1 Each Misc PO ONCE PRN Per Protocol Morphine Sulfate 1 mg 03/01/24 14:13 Morphine Sulfate 2 Mg/Ml Syringe IV Q4HR PRN Severe Pain (Scale 7 to 10) Naloxone HCl 0.2 mg 03/01/24 04:58 Naloxone 0.4 Mg/Ml 1 Ml Vial IV Q2M PRN Opioid Reversal Nicotine 1 patch 03/02/24 17:00 03/02/24 17:06 Nicotine 21mg/24hr Patch TRANSDERM 1 patch DAILY TESFAYE Administration Olanzapine 20 mg 03/01/24 21:00 03/02/24 21:13 Olanzapine 10 Mg Tab PO 20 mg HS TESFAYE Administration Ondansetron HCl 4 mg 03/01/24 04:58 Ondansetron 4 Mg/2 Ml Vial IVP Q8HR PRN Nausea And Vomiting Pantoprazole Sodium 40 mg 03/02/24 07:30 03/03/24 06:01 Pantoprazole 40 Mg Tablet PO 40 mg 0730 TESFAYE Administration Paroxetine HCl 30 mg 03/02/24 09:00 03/02/24 08:34 Paroxetine 10 Mg Tab PO 30 mg DAILY TESFAYE Administration Tiotropium [place] 2 puff 03/02/24 08:00 03/02/24 11:47 Tiotropium 2.5 Mcg Inhaler INHALATION 2 puff RT-DAILY TESFAYE Administration Intake and Output 03/02/24 03/03/24 03/03/24 22:59 06:59 14:59 Intake Total 10 Output Total 500 950 Balance -490 -950 Intake: IV 10 0.9 10 Oral 0 Output: Urine 500 950 Other: Voiding Method Indwelling Catheter Indwelling Catheter 03/02/24 06:50 03/02/24 06:50
[2024-03-03] MEDS: TAMSULOSIN 0.4 MG CAP.ER.24H PO SCH (12:22)
[2024-03-03] MEDS: METOPROLOL TARTRATE 25 MG TAB PO STA (12:22)
[2024-03-03 13:25] LABS: T4, Free (Free Thyroxine) 2.26 ng/dL (0.78-2.19)
--- NOTE | 2024-03-03 14:23 | P.PN ---
Subjective Progress Note Date: 03/03/24 Principal diagnosis: Shortness of breath. This is a 69-year-old white male with history of multiple medical problems including COPD, obesity, chronic congestive heart failure, bipolar disorder, hypothyroidism, chronic atrial fibrillation, patient is familiar to my service, I saw him back in January of 2023, patient had at the time in hospital cardiac arrest requiring CPR and subsequent return of spontaneous circulation CPR was as long as 5 minutes. Other medical problems at that time included underlying COPD, hypertension, bilateral pneumonia, hypertension, bipolar disorder, and generalized anxiety disorder patient was actually discharged back then on 01/26/2023, patient had follow-up with cardiology few months later, and he underwent cardiac catheterization where he was found to have minimal coronary artery disease, elevated left-sided filling pressures, ejection fraction was 60 to 65% at that time. Hence the patient was advised mostly medical therapy. On this admission the patient came in as a referral from an outside facility for pneumonia wherein he presented with symptoms of shortness of breath, hypoxia, low blood pressure, abnormal labs with findings of renal failure, patient was evaluated by the ER physician, and he was in significant respiratory distress placed on BiPAP. With IPAP of 14, EPAP of 6, FiO2 of 60%, ABG showed a pO2 of 69 pCO2 62 pH of 7. 1 9, consistent with a picture of metabolic and respiratory acidosis, for his metabolic acidosis I recommended an amp of bicarb, follow-up ABG showed a pO2 of 95 pCO2 48 pH of 7.26, FiO2 was cut down to 50%. Patient is requiring norepinephrine at 0.11 mcg/kg/min he received an amp of bicarb, and antibiotics webb I am recommending Zosyn every 12 hours. Chest x-ray showed a large hiatal hernia with bilateral bibasilar atelectasis, underlying pneumonia is not entirely ruled out. Especially in the left lung base and I did evaluate the patient in the ER, patient had negative screening for influenza A influenza B RSV and COVID-19 I will admit the patient to the ICU for further treatment of his sepsis/septic shock presentation and acute on chronic hypoxic and hypercapnic respiratory failure with severe metabolic respiratory and metabolic acidosis. The patient is seen today March 02, 2024 in follow-up on the in the end emergency department. He is currently sitting up on a stretcher. Awake and alert in no acute distress. He is feeling actually quite back to his baseline compared to yesterday. Very alert and talkative. He is currently off the BiPAP and on 4 L/min per nasal cannula. He is afebrile. Slightly tachycardic. Chest x-ray shows a very large hiatal hernia. Some superimposed airspace disease extending to the left upper lobe. White count 16.3. Hemoglobin 14.1. P latelets 93,000. Sodium 145. Potassium 4.3. Bicarb 25. BUN 42. Creatinine 2.01. Glucose 128. Procalcitonin 0.04. He is continued on DuoNeb ventilations, Symbicort, Areva, Solu-Medrol. Antibiotics in form of Zosyn and doxycycline. Anticoagulated with Eliquis. Progress note dated March 03, 2024. The patient is seen today in room 372. His procalcitonin level was 0.04. His Zosyn and doxycycline can be discontinued. The patient is getting saline at 75 cc an hour. He continues on 6 L of nasal oxygen. The BiPAP device is at the bedside, with settings of 14/6, and 50%. The patient does not appear to be in any distress at this time. Current labs include a white count 15.7, hemoglobin 14.8, hematocrit 47.7, and a platelet count of 92,000. Sodium 146, potassium 4.5, chlorides 118, CO2 26, BUN 35, creatinine 1.29. Glucose is 140. TSH is 0.098. Calcium 9.1, and free T4 is 2.26. Chest x-ray shows a very large hiatal hernia, which is known. In addition, there is some airspace disease, on the left. Objective - Vital Signs Vital signs: Vital Signs Temp 97.9 F 03/03/24 07:45 Pulse 104 H 03/03/24 12:02 Resp 20 03/03/24 07:45 BP 132/82 03/03/24 07:45 Pulse Ox 91 L 03/03/24 07:45 FiO2 50 03/02/24 23:20 Intake & Output 03/02/24 03/03/24 03/03/24 18:59 06:59 18:59 Intake Total 0 10 118 Output Total 1450 Balance 0 -1440 118 Weight 113.398 kg Intake: IV 10 0.9 10 Oral 0 118 Output: Urine 1450 Other: Voiding Method Indwelling Catheter Indwelling Catheter - Exam No acute distress, currently on 6 L.. HEENT examination is grossly unremarkable. Mucous membranes are moist. No oral lesions. Neck supple. Full range of motion. No adenopathy thyromegaly or neck vein dist ention. Cardiovascular examination reveals regular rhythm rate. S1-S2 normal. No S3 or S4. No discernible murmur noted. Lungs reveal scattered bilateral rhonchi. No wheezes. Minimal crackles. Abdomen soft bowel sounds are heard. No masses or tenderness. Extremities are intact. No cyanosis clubbing or edema. Skin is without rash or lesion. Neurologic examination is brief but nonfocal. - Labs CBC & Chem 7: 03/03/24 09:41 03/03/24 09:41 Labs: Abnormal Lab Results - Last 24 Hours (Table) 03/02/24 03/02/24 03/03/24 Range/Units 16:32 20:00 06:03 WBC (3.8-10.6) k/uL Plt Count (150-450) k/uL Sodium (137-145) mmol/L Chloride (98-107) mmol/L BUN (9-20) mg/dL Creatinine (0.66-1.25) mg/dL Glucose (74-99) mg/dL POC Glucose (mg/dL) 133 H 130 H 134 H (70-110) mg/dL TSH (0.465-4.680) mIU/L Free T4 (0.78-2.19) ng/dL 03/03/24 03/03/24 03/03/24 Range/Units 09:41 09:41 09:41 WBC 15.7 H (3.8-10.6) k/uL Plt Count 92 L (150-450) k/uL Sodium 146 H (137-145) mmol/L Chloride 118 H (98-107) mmol/L BUN 35 H (9-20) mg/dL Creatinine 1.29 H (0.66-1.25) mg/dL Glucose 126 H (74-99) mg/dL POC Glucose (mg/dL) (70-110) mg/dL TSH 0.098 L (0.465-4.680) mIU/L Free T4 2.26 H (0.78-2.19) ng/dL 04/22/24 Range/Units 11:41 WBC (3.8-10.6) k/uL Plt Count (150-450) k/uL Sodium (137-145) mmol/L Chloride (98-107) mmol/L BUN (9-20) mg/dL Creatinine (0.66-1.25) mg/dL Glucose (74-99) mg/dL POC Glucose (mg/dL) 140 H (70-110) mg/dL TSH (0.465-4.680) mIU/L Free T4 (0.78-2.19) ng/dL Microbiology - Last 24 Hours (Table) 03/02/24 15:25 Gram Stain - Preliminary Sputum 03/01/24 10:23 Nasal Screen MRSA/MSSA - Final Nasal Swab Assessment and Plan Assessment: Acute hypoxic and hypercapnic respiratory failure, secondary to an acute exacerbation of chronic obstructive pulmonary disease. Viral screen negative. Procalcitonin negative. Acute on chronic kidney injury, possible ATN. Acute exacerbation of COPD. Large hiatal hernia. Acute respiratory and acute metabolic acidosis secondary to his pulmonary status and secondary to renal status. History of chronic atrial fibrillation. History of diastolic congestive heart failure and previous cardiac arrest/pulseless electrical activity back in January of 2023. Plan: Plan dated March 03, 2024. The patient is seen today in room 372. The patient is currently on 6 L of oxygen. His antibiotics can be discontinued, as the patient's procalcitonin level was 0.04. The patient continues on saline at 75 cc an hour. The patient will continue on bronchodilators and steroids. We will continue to follow make recommendations along the way. Labs, x-rays, medications are reviewed. The patient's overall prognosis remains guarded. Time with Patient: Less than 30
[2024-03-03 16:49] LABS: Glucose,Whole Blood 142 mg/dL (70-110)
--- NOTE | 2024-03-03 17:41 | P.PN ---
Progress Note - Text Progress Note Date: 03/03/24 Hospital course: * 69-year-old patient with past medical history significant for COPD, congestive heart failure, history of bipolar disorder, hypothyroid, hyperlipidemia, atrial fibrillation previous history of PEA cardiac arrest in 2022presents to the emergency department secondary to altered mental status, respiratory distress low blood pressure and hypoxia. Patient was accepted as a crossover from an outside hospital for renal failure pneumonia respiratory failure and septic shock. * workup initiated in ER included CBC which were WBC of 12.6 hemoglobin 15.7 platelet count of 93, INR of 1.3 * Blood gas obtained showed pH of 7.19 pCO2 62 * serum chemistry obtained showed creatinine of 5.35 previous creatinine of 1.39. serum chemistry obtained showed sodium 138 potassium 4.6 carbon dioxide 19 BU and 60. Blood glucose 126. Albumin of 3.4 * 03/02/24: Patient seen and evaluated bedside patient remains admitted ER room 4 waiting for bed in medical ICU. Seen by bank vault attendant in ED, patient weaned off Levophed, follow-up blood work ordered. Blood pressure has improved, patient to go to general medical floor/stepdown unit, mentation has improved alert and oriented x 4. Weaned off BiPAP on nasal cannula March 03: I assumed care of the patient today. On a BiPAP. Setting of 14/6/50%. Coughing up some bloody sputum. Cough is present. Did not eat [place] to eat a good lunch. Wants to sit up in a chair. Active Medications Acetaminophen (Acetaminophen Tab 325 Mg Tab) 650 mg PO Q6HR PRN PRN Reason: Mild Pain or Fever > 100.5 Albuterol/Ipratropium (Ipratropium-Albuterol 3 Ml Neb) 3 ml INHALATION RT-QID [facility] Last Admin: 03/03/24 15:36 Dose: 3 ml Amiodarone HCl (Amiodarone 100 Mg Tab) 100 mg PO DAILY [facility] Last Admin: 03/03/24 09:38 Dose: 100 mg Apixaban (Apixaban 5 Mg Tab) 5 mg PO BID [facility]; Protocol Last Admin: 03/03/24 09:37 Dose: 5 mg Aspirin (Aspirin 81 Mg) 81 mg PO DAILY [facility] Last Admin: 03/03/24 09:37 Dose: 81 mg Benzonatate (Benzonatate 100 Mg Cap) 100 mg PO TID PRN PRN Reason: Cough Last Admin: 03/02/24 00:26 Dose: 100 mg Budesonide/Formoterol Fumarate (Symbicort 160-4.5 Mcg Inhaler) 2 puff INHALATION RT-BID [facility] Last Admin: 03/03/24 08:50 Dose: 2 puff Guaifenesin (Guaifenesin 600 Mg Tablet.Er) 600 mg PO Q12HR [facility] Last Admin: 03/03/24 09:37 Dose: 600 mg Latanoprost (Latanoprost 0.005% Ophth Drops 2.5 Ml Btl) 1 drops LEFT EYE [facility] Last Admin: 03/02/24 21:12 Dose: 1 drops Levothyroxine Sodium (Levothyroxine 125 Mcg Tab) 125 mcg PO 0630 [facility] Last Admin: 03/03/24 06:01 Dose: 125 mcg Methylprednisolone Sodium Succinate (Methylprednisolone Sod Succi 125 Mg/2 Ml Vial) 60 mg IV Q6HR [facility] Last Admin: 03/03/24 12:23 Dose: 60 mg Metoprolol Tartrate (Metoprolol Tartrate 5 Mg/5 Ml Vial) 5 mg IVP Q6HR PRN PRN Reason: Heart Rate - HIGH Metoprolol Tartrate (Metoprolol Tartrate 50 Mg Tab) 75 mg PO BID [facility] Midodrine (Midodrine 5 Mg Tab) 5 mg PO AC-TID [facility] Last Admin: 03/03/24 12:11 Dose: Not Given Miscellaneous Information (Pneumonia Protocol Utilized 1 Each Misc) 1 each PO ONCE PRN PRN Reason: Per Protocol Morphine Sulfate (Morphine Sulfate 2 Mg/Ml Syringe) 1 mg IV Q4HR PRN PRN Reason: Severe Pain (Scale 7 to 10) Naloxone HCl (Naloxone 0.4 Mg/Ml 1 Ml Vial) 0.2 mg IV Q2M PRN PRN Reason: Opioid Reversal Nicotine (Nicotine 21mg/24hr Patch) 1 patch TRANSDERM DAILY [facility] Last Admin: 03/03/24 09:37 Dose: 1 patch Olanzapine (Olanzapine 10 Mg Tab) 20 mg PO [facility] Last Admin: 03/02/24 21:13 Dose: 20 mg Ondansetron HCl (Ondansetron 4 Mg/2 Ml Vial) 4 mg IVP Q8HR PRN PRN Reason: Nausea And Vomiting Pantoprazole Sodium (Pantoprazole 40 Mg Tablet) 40 mg PO 0730 [facility] Last Admin: 03/03/24 06:01 Dose: 40 mg Paroxetine HCl (Paroxetine 10 Mg Tab) 30 mg PO DAILY [facility] Last Admin: 03/03/24 09:38 Dose: 30 mg Tamsulosin HCl (Tamsulosin 0.4 Mg Cap.Er.24h) 0.4 mg PO PC-BRKFST [facility] Last Admin: 03/03/24 12:22 Dose: 0.4 mg Tiotropium [place] (Tiotropium 2.5 Mcg Inhaler) 2 puff INHALATION RT-DAILY [facility] Last Admin: 03/03/24 08:50 Dose: 2 puff Physical examination: VITAL SIGNS: GENERAL: Reclining, comfortable EYES: Pupils equal. Conjunctiva normal. HEENT: External appearance of nose and ears normal, oral cavity grossly normal. NECK: JVD is able to assess; masses not palpable. HEART: First and second heart sounds are normal; edema present LUNGS: Respiratory rate increased; decreased breath sounds , coarse breath sounds ABDOMEN: Soft, nontender, liver spleen not palpable, no masses palpable. PSYCH: Answering questions appropriately. MUSCULOSKELETAL:No Clubbing/cyanosis;muscles-grossly intact. Evidence of OA NEUROLOGICAL: Decreased power in the limbs assessment and plan: -[id number] shock from volume dilatation -No pneumonia Antibiotic discontinued per pulmonary -Acute hypoxic and hypercapnic respiratory failure secondary to COPD exacerbation: Slow to respond On BiPAP. 50% -Paroxysmal atrial fibrillation flutter, currently rate controlled Amiodarone. Eliquis. Lopressor 75 mg twice daily Being followed by cardiology -Acute COPD exacerbation in a current smoker DuEugenio. Symbicort. IV Solu-Medrol. -Acute kidney injury likely ATN, and urine retention Admission creatinine 5.35 -Metabolic acidosis secondary to acute kidney injury. Improved - Chronic congestive heart failure from systolic/diastolic dysfunction EF 45-50%-better -History of cardiac arrest/pulseless electrical activity in January 2023 -Chronic nicotine dependence, cigarette smoker Nicotine patch -Hypothyroid Levothyroxine 125 g a day -Essential hypertension . Lopressor 50 mg twice a day -Bipolar disorder Zyprexa 20 mg daily at bedtime. Paxil. Discussed with patient. Continue current medications. Follow labs.
[2024-03-03 20:06] LABS: Glucose,Whole Blood 128 mg/dL (70-110)
[2024-03-03] MEDS: METOPROLOL TARTRATE 50 MG TAB PO SCH (20:17)
[2024-03-04 06:20] LABS: Glucose,Whole Blood 110 mg/dL (70-110)
--- NOTE | 2024-03-04 09:58 | P.GSCN ---
History of Present Illness Consult date: 03/04/24 Reason for Consult: Urinary retention History of present illness: This is a 69-year-old male admitted to the hospital with altered mental status. Urology is consulted for urinary retention. Patient had a Shook catheter placed on presentation which drained 1 L of urine. Patient was confused on hospital presentation which his mentation has improved now. At baseline he denies any voiding. No previous history of UTIs, kidney stones, or previous history of retention. He did undergo a renal ultrasound on presentation that showed no evidence of hydronephrosis. Denies any previous surgeries Review of Systems - Constitutional Denies fever, Denies weight loss - EENT Ears, nose, mouth and throat: Denies dysphagia - Cardiovascular Denies chest pain, Denies shortness of breath - Gastrointestinal Reports as per HPI - Genitourinary Denies dysuria, Denies hematuria Past Medical History Past Medical History: Atrial Fibrillation, COPD, Eye Disorder, Hyperlipidemia, Hypertension, Osteoarthritis (OA), Thyroid Disorder Additional Past Medical History / Comment(s): Sober 1978, hiatal hernia, glaucoma left eye, possible stroke behind left eye per opthamologist. arthritis in back,cystic acne on back to see intake rn. History of Any Multi-Drug Resistant Organisms: None Reported Past Surgical History: Heart Catheterization Additional Past Surgical History / Comment(s): HYDROCELE surg. x2, hemorrhoidectomy, colonoscopy, cataract surgery tamara eyes Past Anesthesia/Blood Transfusion Reactions: No Reported Reaction Additional Past Anesthesia/Blood Transfusion Reaction / Comm: no blood transfusions Past Psychological History: Anxiety, Bipolar, Panic Disorder Additional Psychological History / Comment(s): intermediate from [id number] Smoking Status: Current every day smoker Past Alcohol Use History: None Reported Additional Past Alcohol Use History / Comment(s): sober 1978., down to 8 cigs/day from 1ppd, had quit on & off since teens, uses nicotine patch off and on. Past Drug Use History: Marijuana Additional Drug Use History / Comment(s): smokes marijauna daily, pt aware not to use 24 hrs before his procedure. - Past Family History Mother Family Medical History: Diabetes Mellitus Father Family Medical History: Coronary Artery Disease (CAD) Sister(s) Family Medical History: Coronary Artery Disease (CAD), Diabetes Mellitus, Hypertension Medications and Allergies Home Medications Medication Instructions Recorded Confirmed Type Latanoprost/Pf [Latanoprost 0.005% 1 drop LEFT EYE HS 08/18/20 03/01/24 History Eye Drop] Levothyroxine Sodium 125 mcg PO DAILY 08/18/20 03/01/24 History Albuterol Sulfate [Albuterol 1 puff INHALATION RT-Q4H PRN 04/01/22 03/01/24 History Sulfate Hfa] Apixaban [Eliquis] 5 mg PO BID 04/01/22 03/01/24 History Aspirin EC [Ecotrin Low Dose] 81 mg PO DAILY 04/01/22 03/01/24 History Loratadine [Claritin] 10 mg PO DAILY 04/01/22 03/01/24 History Fluticasone/Vilanterol [Breo 1 puff INHALATION RT-DAILY 01/11/23 03/01/24 History Ellipta 200-25 Mcg Inhaler] OLANZapine [ZyPREXA] 20 mg PO HS 01/11/23 03/01/24 History Pantoprazole Sodium [Protonix] 40 mg PO DAILY 01/11/23 03/01/24 History Tiotropium [place] [Spiriva 1 cap INHALATION RT-DAILY 01/11/23 03/01/24 History Handihaler] Acetaminophen Tab [Tylenol] 650 mg PO Q4HR PRN tab 01/26/23 03/01/24 Rx Furosemide [Lasix] 40 mg PO DAILY #0 01/26/23 03/01/24 Rx Metoprolol Tartrate [Lopressor] 50 mg PO BID tab 01/26/23 03/01/24 Rx Midodrine [ProAmatine] 5 mg PO AC-TID tab 01/26/23 03/01/24 Rx lisinopriL [Zestril] 2.5 mg PO BID tab 01/26/23 03/01/24 Rx Albuterol Nebulized [Ventolin 2.5 mg INHALATION RT-Q6H 03/01/24 03/01/24 History Nebulized] Amiodarone [Cordarone] 100 mg PO DAILY 03/01/24 03/01/24 History Budesonide/Formoterol Fumarate 2 puff INHALATION RT-BID 03/01/24 03/01/24 Hist ory [Symbicort 160-4.5 Mcg Inhaler] Gabapentin [Neurontin] 100 mg PO TID 03/01/24 03/01/24 History Minocycline [Minocin] 50 mg PO BID 03/01/24 03/01/24 History PARoxetine HCL [Paxil] 30 mg PO DAILY 03/01/24 03/01/24 History Sennosides [Senokot] 8.6 mg PO BID 03/01/24 03/01/24 History Allergies Allergy/AdvReac Type Severity Reaction Status Date / Time No Known Allergies Allergy Verified 03/01/24 11:06 Surgical - Exam Vital Signs Temp Pulse Resp BP Pulse Ox 97.8 F 84 16 70/64 88 L 03/01/24 02:04 03/01/24 02:04 03/01/24 02:04 03/01/24 02:04 03/01/24 02:04 - General no distress, no pain - ENT normal nares, normal mucosa - Respiratory normal expansion, normal respiratory effort - Abdomen Abdomen: soft, non tender - Genitourinary Shook draining clear yellow urine Results - Labs 03/03/24 09:41 03/03/24 09:41 Abnormal Lab Results - Last 24 Hours (Table) 03/03/24 03/03/24 03/03/24 Range/Units 09:41 09:41 09:41 WBC 15.7 H (3.8-10.6) k/uL Plt Count 92 L (150-450) k/uL Sodium 146 H (137-145) mmol/L Chloride 118 H (98-107) mmol/L BUN 35 H (9-20) mg/dL Creatinine 1.29 H (0.66-1.25) mg/dL Glucose 126 H (74-99) mg/dL POC Glucose (mg/dL) (70-110) mg/dL TSH 0.098 L (0.465-4.680) mIU/L Free T4 2.26 H (0.78-2.19) ng/dL 03/03/24 03/03/24 03/03/24 Range/Units 11:41 16:44 20:03 WBC (3.8-10.6) k/uL Plt Count (150-450) k/uL Sodium (137-145) mmol/L Chloride (98-107) mmol/L BUN (9-20) mg/dL Creatinine (0.66-1.25) mg/dL Glucose (74-99) mg/dL POC Glucose (mg/dL) 140 H 142 H 128 H (70-110) mg/dL TSH (0.465-4.680) mIU/L Free T4 (0.78-2.19) ng/dL Microbiology - Last 24 Hours (Table) 03/02/24 15:25 Gram Stain - Preliminary Sputum Diabetes panel 03/03/24 Range/Units 09:41 Sodium 146 H (137-145) mmol/L Potassium 4.5 (3.5-5.1) mmol/L Chloride 118 H (98-107) mmol/L Carbon Dioxide 26 (22-30) mmol/L BUN 35 H (9-20) mg/dL Creatinine 1.29 H (0.66-1.25) mg/dL Glucose 126 H (74-99) mg/dL Calcium 9.1 (8.4-10.2) mg/dL Thyroid panel 03/03/24 Range/Units 09:41 TSH 0.098 L (0.465-4.680) mIU/L Calcium panel 03/03/24 Range/Units 09:41 Calcium 9.1 (8.4-10.2) mg/dL Pituitary panel 03/03/24 03/03/24 Range/Units 09:41 09:41 Sodium 146 H (137-145) mmol/L Potassium 4.5 (3.5-5.1) mmol/L Chloride 118 H (98-107) mmol/L Carbon Dioxide 26 (22-30) mmol/L BUN 35 H (9-20) mg/dL Creatinine 1.29 H (0.66-1.25) mg/dL Glucose 126 H (74-99) mg/dL Calcium 9.1 (8.4-10.2) mg/dL TSH 0.098 L (0.465-4.680) mIU/L Adrenal panel 03/03/24 Range/Units 09:41 Sodium 146 H (137-145) mmol/L Potassium 4.5 (3.5-5.1) mmol/L Chloride 118 H (98-107) mmol/L Carbon Dioxide 26 (22-30) mmol/L BUN 35 H (9-20) mg/dL Creatinine 1.29 H (0.66-1.25) mg/dL Glucose 126 H (74-99) mg/dL Calcium 9.1 (8.4-10.2) mg/dL Assessment and Plan Assessment: 69-year-old male admitted to the hospital with altered mental status, and acute kidney injury. Shook catheter placed on presentation with return of 1 L of urine. Patient was confused on hospital presentation. No previous history of urinary retention -Continue Flomax -Shook catheter can be removed prior to discharge, please check residual after catheter is removed, if less than 400 mL he is okay for discharge from urology standpoint. If residual is greater than 400 mL recommend reinserting the catheter and he can follow-up as an outpatient in 1 to 2 weeks
[2024-03-04 10:34] LABS: African American GFR (CKD) 80 (>60 ml/min/1.73 sqM); Anion Gap 4 mmol/L; Blood Urea Nitrogen 32 mg/dL (9-20); Calcium 9.1 mg/dL (8.4-10.2); Carbon Dioxide 26 mmol/L (22-30); Chloride 115 mmol/L (98-107); Glucose 116 mg/dL (74-99); Magnesium 2.1 mg/dL (1.6-2.3); Non-African American GFR(CKD) 69 (>60 ml/min/1.73 sqM); Potassium 4.8 mmol/L (3.5-5.1); Sodium 145 mmol/L (137-145)
--- NOTE | 2024-03-04 10:44 | P.PN ---
Subjective Patient is seen in follow-up for acute kidney injury. Renal function improving. Has Shook catheter. Receiving IV fluids. Nonoliguric. Oral intake is good. No vomiting or diarrhea. Vital signs are stable. General: No acute distress. HEENT: Head exam is unremarkable. On BiPAP. LUNGS: No audible rhonchi or wheezes. HEART: Rate and Rhythm are regular. ABDOMEN: Nontender. EXTREMITITES: No edema. Objective - Vital Signs Vital signs: Vital Signs Temp 97.8 F 03/04/24 08:30 Pulse 92 03/04/24 09:21 Resp 19 03/04/24 08:30 BP 114/86 03/04/24 08:30 Pulse Ox 95 03/04/24 08:30 FiO2 50 03/04/24 09:00 Intake & Output 03/03/24 03/04/24 03/04/24 18:59 06:59 18:59 Intake Total 1178 180 Output Total 1200 Balance 1178 -1200 180 Intake: Intake, IV Titration 100 Amount Piperacillin-Tazobactam 3 100 .375 gm In Sodium Chloride 0.9% 100 ml @ 25 mls/hr IVPB Q8H [facility] Rx#: [id number] Oral 1078 180 Output: Urine 1200 Other: Voiding Method Indwelling Catheter Indwelling Catheter Indwelling Catheter # Bowel Movements 1 - Labs CBC & Chem 7: 03/03/24 09:41 03/04/24 09:18 Labs: Abnormal Lab Results - Last 24 Hours (Table) 03/03/24 03/03/24 03/03/24 Range/Units 09:41 09:41 09:41 WBC 15.7 H (3.8-10.6) k/uL Plt Count 92 L (150-450) k/uL Sodium 146 H (137-145) mmol/L Chloride 118 H (98-107) mmol/L BUN 35 H (9-20) mg/dL Creatinine 1.29 H (0.66-1.25) mg/dL Glucose 126 H (74-99) mg/dL POC Glucose (mg/dL) (70-110) mg/dL TSH 0.098 L (0.465-4.680) mIU/L Free T4 2.26 H (0.78-2.19) ng/dL 03/03/24 03/03/24 03/03/24 Range/Units 11:41 16:44 20:03 WBC (3.8-10.6) k/uL Plt Count (150-450) k/uL Sodium (137-145) mmol/L Chloride (98-107) mmol/L BUN (9-20) mg/dL Creatinine (0.66-1.25) mg/dL Glucose (74-99) mg/dL POC Glucose (mg/dL) 140 H 142 H 128 H (70-110) mg/dL TSH (0.465-4.680) mIU/L Free T4 (0.78-2.19) ng/dL 03/04/24 Range/Units 09:18 WBC (3.8-10.6) k/uL Plt Count (150-450) k/uL Sodium (137-145) mmol/L Chloride 115 H (98-107) mmol/L BUN 32 H (9-20) mg/dL Creatinine (0.66-1.25) mg/dL Glucose 116 H (74-99) mg/dL POC Glucose (mg/dL) (70-110) mg/dL TSH (0.465-4.680) mIU/L Free T4 (0.78-2.19) ng/dL Microbiology - Last 24 Hours (Table) 03/02/24 15:25 Gram Stain - Preliminary Sputum Assessment and Plan Plan: Assessment: 1. Acute kidney injury secondary to urinary retention with component of ATN. UA benign. No hydronephrosis noted on kidney ultrasound. Renal function improving. Creatinine over 5 on admission and down to 1.1 today. 2. Metabolic acidosis secondary to acute kidney injury. Improved. 3. Benign hypertension. Controlled. 4. Acute hypoxic and hypercapnic respiratory failure. Being treated for acute COPD exacerbation. Plan: Encouraged oral intake. Trial of void prior to discharge. Maintain Flomax. Hold midodrine for systolic blood pressure greater than 110.
[2024-03-04 11:37] LABS: Glucose,Whole Blood 150 mg/dL (70-110)
--- NOTE | 2024-03-04 12:41 | P.PN ---
Subjective Progress Note Date: 03/04/24 Principal diagnosis: Shortness of breath. This is a 69-year-old white male with history of multiple medical problems including COPD, obesity, chronic congestive heart failure, bipolar disorder, hypothyroidism, chronic atrial fibrillation, patient is familiar to my service, I saw him back in January of 2023, patient had at the time in hospital cardiac arrest requiring CPR and subsequent return of spontaneous circulation CPR was as long as 5 minutes. Other medical problems at that time included underlying COPD, hypertension, bilateral pneumonia, hypertension, bipolar disorder, and generalized anxiety disorder patient was actually discharged back then on 01/26/2023, patient had follow-up with cardiology few months later, and he underwent cardiac catheterization where he was found to have minimal coronary artery disease, elevated left-sided filling pressures, ejection fraction was 60 to 65% at that time. Hence the patient was advised mostly medical therapy. On this admission the patient came in as a referral from an outside facility for pneumonia wherein he presented with symptoms of shortness of breath, hypoxia, low blood pressure, abnormal labs with findings of renal failure, patient was evaluated by the ER physician, and he was in significant respiratory distress placed on BiPAP. With IPAP of 14, EPAP of 6, FiO2 of 60%, ABG showed a pO2 of 69 pCO2 62 pH of 7. 1 9, consistent with a picture of metabolic and respiratory acidosis, for his metabolic acidosis I recommended an amp of bicarb, follow-up ABG showed a pO2 of 95 pCO2 48 pH of 7.26, FiO2 was cut down to 50%. Patient is requiring norepinephrine at 0.11 mcg/kg/min he received an amp of bicarb, and antibiotics webb I am recommending Zosyn every 12 hours. Chest x-ray showed a large hiatal hernia with bilateral bibasilar atelectasis, underlying pneumonia is not entirely ruled out. Especially in the left lung base and I did evaluate the patient in the ER, patient had negative screening for influenza A influenza B RSV and COVID-19 I will admit the patient to the ICU for further treatment of his sepsis/septic shock presentation and acute on chronic hypoxic and hypercapnic respiratory failure with severe metabolic respiratory and metabolic acidosis. The patient is seen today March 02, 2024 in follow-up on the in the end emergency department. He is currently sitting up on a stretcher. Awake and alert in no acute distress. He is feeling actually quite back to his baseline compared to yesterday. Very alert and talkative. He is currently off the BiPAP and on 4 L/min per nasal cannula. He is afebrile. Slightly tachycardic. Chest x-ray shows a very large hiatal hernia. Some superimposed airspace disease extending to the left upper lobe. White count 16.3. Hemoglobin 14.1. P latelets 93,000. Sodium 145. Potassium 4.3. Bicarb 25. BUN 42. Creatinine 2.01. Glucose 128. Procalcitonin 0.04. He is continued on DuoNeb ventilations, Symbicort, Areva, Solu-Medrol. Antibiotics in form of Zosyn and doxycycline. Anticoagulated with Eliquis. Progress note dated March 03, 2024. The patient is seen today in room 372. His procalcitonin level was 0.04. His Zosyn and doxycycline can be discontinued. The patient is getting saline at 75 cc an hour. He continues on 6 L of nasal oxygen. The BiPAP device is at the bedside, with settings of 14/6, and 50%. The patient does not appear to be in any distress at this time. Current labs include a white count 15.7, hemoglobin 14.8, hematocrit 47.7, and a platelet count of 92,000. Sodium 146, potassium 4.5, chlorides 118, CO2 26, BUN 35, creatinine 1.29. Glucose is 140. TSH is 0.098. Calcium 9.1, and free T4 is 2.26. Chest x-ray shows a very large hiatal hernia, which is known. In addition, there is some airspace disease, on the left. Progress note dated March 04, 2024. The patient is seen today in room 372. Currently, the patient is on BiPAP, with settings of 14/6 and 50%. The patient is not receiving any IV fluids. Prior to the BiPAP, being placed, the patient was on oxygen by nasal cannula at 6 L. He is sitting up in a chair. Shook catheter in place. He appears relatively comfortable. Current laboratory data includes a sodium 145, potassium 4.8, chlorides 115, CO2 26, BUN 32, creatinine 1.10. Glucose is 116. Calcium 9.1 and magnesium is 2.1. Culture data is currently negative or pending. No recent chest x-ray. Objective - Vital Signs Vital signs: Vital Signs Temp 98.0 F 03/04/24 11:30 Pulse 96 03/04/24 12:27 Resp 19 03/04/24 11:30 BP 116/82 03/04/24 11:30 Pulse Ox 90 L 03/04/24 11:30 FiO2 50 03/04/24 09:00 Intake & Output 03/03/24 03/04/24 03/04/24 18:59 06:59 18:59 Intake Total 1178 180 Output Total 1200 450 Balance 1178 -1200 -270 Intake: Intake, IV Titration 100 Amount Piperacillin-Tazobactam 3 100 .375 gm In Sodium Chloride 0.9% 100 ml @ 25 mls/hr IVPB Q8H COUNT INCLUDES THE [facility] Rx#: [id number] Oral 1078 180 Output: Urine 1200 450 Uretheral (Shook) 450 Other: Voiding Method Indwelling Catheter Indwelling Catheter Indwelling Catheter # Bowel Movements 1 - Exam No acute distress, currently on BiPAP. HEENT examination is grossly unremarkable. Neck supple. Full range of motion. No adenopathy thyromegaly or neck vein distention. Cardiovascular examination reveals regular rhythm rate. S1-S2 normal. No S3 or S4. No discernible murmur noted. Heart sounds are distant. Heart rate 90 bpm. Lungs reveal scattered bilateral rhonchi. No wheezes. Minimal crackles. Saturations are 92% on BiPAP. Abdomen soft bowel sounds are heard. No masses or tenderness. Extremities are intact. No cyanosis clubbing or edema. Skin is without rash or lesion. Neurologic examination is brief but nonfocal. - Labs CBC & Chem 7: 03/03/24 09:41 03/04/24 09:18 Labs: Abnormal Lab Results - Last 24 Hours (Table) 03/03/24 03/03/24 03/03/24 Range/Units 09:41 16:44 20:03 Chloride (98-107) mmol/L BUN (9-20) mg/dL Glucose (74-99) mg/dL POC Glucose (mg/dL) 142 H 128 H (70-110) mg/dL TSH 0.098 L (0.465-4.680) mIU/L Free T4 2.26 H (0.78-2.19) ng/dL 03/04/24 03/04/24 Range/Units 09:18 11:34 Chloride 115 H (98-107) mmol/L BUN 32 H (9-20) mg/dL Glucose 116 H (74-99) mg/dL POC Glucose (mg/dL) 150 H (70-110) mg/dL TSH (0.465-4.680) mIU/L Free T4 (0.78-2.19) ng/dL Microbiology - Last 24 Hours (Table) 03/02/24 15:25 Gram Stain - Preliminary Sputum Assessment and Plan Assessment: Acute hypoxic and hypercapnic respiratory failure, secondary to an acute exacerbation of chronic obstructive pulmonary disease. Acute on chronic kidney injury, possible ATN. Acute exacerbation of COPD. Large hiatal hernia. Acute respiratory and acute metabolic acidosis secondary to his pulmonary status and secondary to renal status. History of chronic atrial fibrillation. History of diastolic congestive heart failure and previous cardiac arrest/pulseless electrical activity back in January of 2023. Plan: Plan dated March 03, 2024. The patient is seen today in room 372. The patient is currently on 6 L of oxygen. His antibiotics can be discontinued, as the patient's procalcitonin level was 0.04. The patient continues on saline at 75 cc an hour. The patient will continue on bronchodilators and steroids. We will continue to follow make recommendations along the way. Labs, x-rays, medications are reviewed. The patient's overall prognosis remains guarded. Plan dated March 04, 2024. The patient is seen today in room 372. The patient is currently on BiPAP, with settings of 14/6, and 50%. He is not receiving any IV fluids. Prior to being placed on BiPAP, the patient was on 6 L by nasal cannula. Labs, x-rays, medications are reviewed. The patient is sitting in the chair next to his hospital bed. The patient does not appear to have any ranjana respiratory difficulty or distress. We will continue to follow make recommendations along the way. Prognosis is certainly guarded. Time with Patient: Less than 30
--- NOTE | 2024-03-04 15:03 | P.PN ---
Subjective Progress Note Date: 03/04/24 Consult reason: atrial fibrillation (With RVR) History of present illness: This is a 69-year-old male patient of Dr. Jasso with past medical history of paroxysmal atrial fibrillation, hyperlipidemia, mildly reduced EF of 40 to 45% with recovered EF, COPD, history of in-hospital cardiac arrest requiring CPR for 5 minutes with return of spontaneous circulation, significant hiatal hernia with near complete stomach in the thoracic cavity, AVNRT. We have been asked to evaluate the patient for A-fib with RVR. On patient's last office visit on 11/01/2023, there was discussion regarding cardiac ablation for atrial fibrillation. Patient presented to the hospital due to shortness of breath, hypoxia, low blood pressure and abnormal lab work as a transfer for pneumonia and respiratory failure from another facility. Patient presented on 03/01. He has been followed by infectious disease, nephrology, pulmonary medicine. Patient was initially admitted into the intensive care unit for sepsis and septic shock and is now on the cardiac stepdown unit. Patient has been resumed on his home cardiac medications. His mental status is improving. EKG atrial fibrillation with ventricular rate of 91 bpm. Telemetry yesterday afternoon was atrial fibrillation up to the 150s and currently running in the irregular 109. Chest x-ray: Large hiatal hernia with entire stomach sizable portion of transverse colon herniated into the chest. Superimposed airspace disease extending into the left upper lobe that appears increased. WBC 16.3, hemoglobin 14.1, platelet count 93. INR 1.3. Sodium 145, potassium 4.3, chloride 118, initial CO2 1925. Initial BUN 60 and repeat 42. Initial creatinine 5.35 and now 2.01. Troponin negative x 1. C-reactive protein 4.1. proBNP 721. Procalcitonin 0.04. Home cardiac medications: Amiodarone 100 mg daily, Eliquis 5 mg twice daily, aspirin 81 mg daily, Lasix 40 mg daily, lisinopril 2.5 mg twice daily, Lopressor 50 mg twice daily, midodrine 5 mg 3 times daily. Cardiac catheterization performed 04/16/[address] Jasso revealed mild to moderate CAD with 30% RCA, 40% LAD stenosis. Elevated left-sided filling pres sures. EF 60 to 65%. [facility] and cardioversion performed on 11/16/2020 Echocardiogram performed on 01/12/2023 revealed poor quality. Mild global decrease in contractility. Mild mitral annular calcification and aortic sclerosis. Mild tricuspid regurgitation. Right-sided pressures are not well quantified. No pericardial effusion. EF 45 to 50%. 03/04 Patient is seen today on the cardiac stepdown unit. Blood pressure 116/82, heart rate 96-116, pulse ox 90% on 6 L nasal cannula. Repeat blood work reveals potassium 4.8, BUN 32 creatinine 1.1. Yesterday, metoprolol tartrate was increased to 75 mg twice daily for rate control. Patient remains in atrial fibrillation. Physical examination: Gen: This is a 69-year-old male in no acute distress VS: reviewed HEENT: Head is atraumatic, normocephalic. Pupils equal, round. Sclerae is anicteric. NECK: Supple. No JVD. LUNGS: Diminished breath sounds. No intercostal retractions. HEART: Irregular rate and rhythm. No murmur. ABDOMEN: Soft No tenderness. EXTREMITIES: No pedal edema. No calf tenderness. NEUROLOGICAL: Patient is awake, alert and oriented x3. Assessment: Paroxysmal atrial fibrillation with RVR Acute hypoxic and hypercapnic respiratory failure Acute exacerbation of COPD Possible aspiration pneumonia, sepsis, septic shock Acute kidney injury Metabolic acidosis Thrombocytopenia Hyperlipidemia History of reduced EF that has recovered Tobacco use and dependence Significant hiatal hernia History of in-hospital CPR with return of spontaneous circulation Plan: Continue patient's home cardiac medications Continue Lopressor increased to 100 mg twice daily Obtain 2-D echocardiogram and Doppler study to assess cardiac structure and function Further recommendations to follow based upon clinical course Thank you kindly for this consultation. Nurse practitioner note has been reviewed, I agree with documented findings and plan of care. Patient was seen and examined. Objective - Vital Signs Vital signs: Vital Signs Temp 98.0 F 03/04/24 11:30 Pulse 96 03/04/24 12:40 Resp 19 03/04/24 11:30 BP 116/82 03/04/24 11:30 Pulse Ox 90 L 03/04/24 11:30 FiO2 50 03/04/24 09:00 Intake & Output 03/03/24 03/04/24 03/04/24 18:59 06:59 18:59 Intake Total 1178 360 Output Total 1200 450 Balance 1178 -1200 -90 Intake: Intake, IV Titration 100 Amount Piperacillin-Tazobactam 3 100 .375 gm In Sodium Chloride 0.9% 100 ml @ 25 mls/hr IVPB Q8H [facility] Rx#: [id number] Oral 1078 360 Output: Urine 1200 450 Uretheral (Shook) 450 Other: Voiding Method Indwelling Catheter Indwelling Catheter Indwelling Catheter # Bowel Movements 1 - Labs CBC & Chem 7: 03/03/24 09:41 03/04/24 09:18 Labs: Abnormal Lab Results - Last 24 Hours (Table) 03/03/24 03/03/24 03/04/24 Range/Units 16:44 20:03 09:18 Chloride 115 H (98-107) mmol/L BUN 32 H (9-20) mg/dL Glucose 116 H (74-99) mg/dL POC Glucose (mg/dL) 142 H 128 H (70-110) mg/dL 03/04/24 Range/Units 11:34 Chloride (98-107) mmol/L BUN (9-20) mg/dL Glucose (74-99) mg/dL POC Glucose (mg/dL) 150 H (70-110) mg/dL Microbiology - Last 24 Hours (Table) 03/02/24 15:25 Gram Stain - Preliminary Sputum
--- NOTE | 2024-03-04 15:03 | P.PN ---
Subjective Progress Note Date: 03/02/24 Principal diagnosis: Reason for follow-up is pneumonia Patient is a 69-year-old male with a past medical history significant for hypertension hyperlipidemia COPD atrial fibrillation hypothyroidism, cardiac arrest January 2023, patient presented to hospital for evaluation of increasing shortness of breath patient noticed to be hypoxic requiring BiPAP chest x-ray new consolidation left lung concerning for pneumonia. On today's evaluation that is 03/02/2024, the patient is more awake and alert today, the patient continues to be afebrile, the patient is on 50% FiO2 however breathing comfortably, the Pt denies having any chest pain or any worsening cough, the patient denies having any abdominal pain no vomiting or any diarrhea has been reported by the nursing staff. Patient white count is 16.3 creatinine is 2.01, sputum cultures pending Objective - Vital Signs Vital signs: Vital Signs Temp 97.0 F L 03/02/24 07:48 Pulse 112 H 03/02/24 08:06 Resp 27 H 03/02/24 07:48 BP 105/76 03/02/24 07:48 Pulse Ox 96 03/02/24 07:48 FiO2 50 03/02/24 07:50 Intake & Output 03/01/24 03/02/24 03/02/24 18:59 06:59 18:59 Intake Total 280.676 26.136 Output Total 1800 1900 Balance -1519.324 -1873.864 Intake: Intake, IV Titration 280.676 26.136 Amount Norepinephrine 4 mg In 280.676 26.136 Sodium Chloride 0.9% 250 ml @ 0.03 MCG/KG/MIN 12. 961 mls/hr IV .[id number] [facility] Rx#:[id number] Output: Urine 1800 1900 Uretheral (Shook) 1800 Other: # Bowel Movements 0 - Exam GENERAL DESCRIPTION: An elderly male lying in bed in no distress RESPIRATORY SYSTEM: Unlabored breathing , decreased breath sounds at bases HEART: S1 S2 regular rate and rhythm , ABDOMEN: Soft , no tenderness EXTREMITIES: No edema feet Exam completed with help of BACTERIOLOGIST [employer] - Labs CBC & Chem 7: 03/03/24 09:41 03/04/24 09:18 Labs: Abnormal Lab Results - Last 24 Hours (Table) 03/01/24 03/02/24 Range/Units 08:50 06:50 WBC 16.3 H (3.8-10.6) k/uL Plt Count 93 L (150-450) k/uL Neutrophils # 14.3 H (1.3-7.7) k/uL ABG pH 7.27 L (7.35-7.45) ABG pCO2 48 H (35-45) mmHg Assessment and Plan (1) Hypoxia Current Visit: Yes Status: Acute Code(s): R09.02 - HYPOXEMIA SNOMED Code(s): 582392901 (2) Pneumonia Current Visit: Yes Status: Acute Code(s): J18.9 - PNEUMONIA, UNSPECIFIED ORGANISM SNOMED Code(s): 600060991 Plan: 1patient presented to hospital with acute respiratory failure in this patient who is currently hypoxic on BiPAP patient did have a left-sided infiltrate on chest x-ray elevated white count concerning for pneumonia to be a likely source keeping in mind patient being out of the hospital could be gram-negative pathogen 2- sputum culture has been obtained and currently pending procalcitonin level is currently pending 3-patient to continue the Zosyn and doxycycline while waiting for the culture to finalize antibiotic and monitor clinical course closely Dictation was produced using [employer] dictation software. please excuse any grammatical, word or spelling errors. Time with Patient: Less than 30
--- NOTE | 2024-03-04 15:04 | P.PN ---
Subjective Progress Note Date: 03/03/24 Principal diagnosis: Reason for follow-up is pneumonia Patient is a 69-year-old male with a past medical history significant for hypertension hyperlipidemia COPD atrial fibrillation hypothyroidism, cardiac arrest January 2023, patient presented to hospital for evaluation of increasing shortness of breath patient noticed to be hypoxic requiring BiPAP chest x-ray new consolidation left lung concerning for pneumonia. On today's evaluation that is 03/03/2024, Patient is afebrile patient is currently on nasal cannula oxygen and denies having any shortness of breath, the patient denies any chest pain and cough has decreased in intensity denies any further hemoptysis, the patient denies any nausea vomiting did not have any abdominal pain and no diarrhea. Patient white count is down to 15.7 creatinine is down to 1.29 Objective - Vital Signs Vital signs: Vital Signs Temp 98.1 F 03/03/24 20:00 Pulse 92 03/03/24 21:00 Resp 18 03/03/24 20:00 BP 134/89 03/03/24 20:00 Pulse Ox 92 L 03/03/24 20:00 FiO2 50 03/03/24 15:36 Intake & Output 03/03/24 03/03/24 03/04/24 06:59 18:59 06:59 Intake Total 10 1178 Output Total 1450 800 Balance -1440 1178 -800 Intake: IV 10 0.9 10 Intake, IV Titration 100 Amount Piperacillin-Tazobactam 3 100 .375 gm In Sodium Chloride 0.9% 100 ml @ 25 mls/hr IVPB Q8H [facility] Rx#: [id number] Oral 1078 Output: Urine 1450 800 Other: Voiding Method Indwelling Catheter Indwelling Catheter Indwelling Catheter - Exam GENERAL DESCRIPTION: An elderly male lying in bed in no distress RESPIRATORY SYSTEM: Unlabored breathing , decreased breath sounds at bases HEART: S1 S2 regular rate and rhythm , ABDOMEN: Soft , no tenderness EXTREMITIES: No edema feet - Labs CBC & Chem 7: 03/03/24 09:41 03/04/24 09:18 Labs: Abnormal Lab Results - Last 24 Hours (Table) 03/03/24 03/03/24 03/03/24 Range/Units 06:03 09:41 09:41 WBC 15.7 H (3.8-10.6) k/uL Plt Count 92 L (150-450) k/uL Sodium 146 H (137-145) mmol/L Chloride 118 H (98-107) mmol/L BUN 35 H (9-20) mg/dL Creatinine 1.29 H (0.66-1.25) mg/dL Glucose 126 H (74-99) mg/dL POC Glucose (mg/dL) 134 H (70-110) mg/dL TSH (0.465-4.680) mIU/L Free T4 (0.78-2.19) ng/dL 03/03/24 03/03/24 03/03/24 Range/Units 09:41 11:41 16:44 WBC (3.8-10.6) k/uL Plt Count (150-450) k/uL Sodium (137-145) mmol/L Chloride (98-107) mmol/L BUN (9-20) mg/dL Creatinine (0.66-1.25) mg/dL Glucose (74-99) mg/dL POC Glucose (mg/dL) 140 H 142 H (70-110) mg/dL TSH 0.098 L (0.465-4.680) mIU/L Free T4 2.26 H (0.78-2.19) ng/dL 03/03/24 Range/Units 20:03 WBC (3.8-10.6) k/uL Plt Count (150-450) k/uL Sodium (137-145) mmol/L Chloride (98-107) mmol/L BUN (9-20) mg/dL Creatinine (0.66-1.25) mg/dL Glucose (74-99) mg/dL POC Glucose (mg/dL) 128 H (70-110) mg/dL TSH (0.465-4.680) mIU/L Free T4 (0.78-2.19) ng/dL Microbiology - Last 24 Hours (Table) 03/02/24 15:25 Gram Stain - Preliminary Sputum Assessment and Plan (1) Hypoxia Current Visit: Yes Status: Acute Code(s): R09.02 - HYPOXEMIA SNOMED Code(s): 102737390 (2) Pneumonia Current Visit: Yes Status: Acute Code(s): J18.9 - PNEUMONIA, UNSPECIFIED ORGANISM SNOMED Code(s): 787188125 Plan: 1patient presented to hospital with acute respiratory failure in this patient who is currently hypoxic on BiPAP patient did have a left-sided infiltrate on chest x-ray elevated white count concerning for pneumonia to be a likely source keeping in mind patient being out of the hospital could be gram-negative pathogen 2- sputum culture has been obtained and currently pending procalcitonin level is normal 3-patient Zosyn has been discontinued because of low procalcitonin and the patient will monitor closely off antibiotic therapy Dictation was produced using [employer] dictation software. please excuse any grammatical, word or spelling errors. Time with Patient: Less than 30
--- NOTE | 2024-03-04 15:05 | P.PN ---
Subjective Progress Note Date: 03/04/24 Principal diagnosis: Reason for follow-up is pneumonia Patient is a 69-year-old male with a past medical history significant for hypertension hyperlipidemia COPD atrial fibrillation hypothyroidism, cardiac arrest January 2023, patient presented to hospital for evaluation of increasing shortness of breath patient noticed to be hypoxic requiring BiPAP chest x-ray new consolidation left lung concerning for pneumonia. On today's evaluation that is 03/04/2024, patient has been afebrile, patient is breathing comfortably and is is down to 6 L nasal oxygen patient cough has decreased in intensity no further blood in the sputum still bringing up some purulent sputum no chest pain no nausea no vomiting no abdominal pain and no diarrhea. No CBC was done today his creatinine is down to 1.10, sputum cultures pending Objective - Vital Signs Vital signs: Vital Signs Temp 98.0 F 03/04/24 11:30 Pulse 116 H 03/04/24 14:00 Resp 19 03/04/24 14:00 BP 116/82 03/04/24 11:30 Pulse Ox 90 L 03/04/24 11:30 FiO2 50 03/04/24 09:00 Intake & Output 03/03/24 03/04/24 03/04/24 18:59 06:59 18:59 Intake Total 1178 360 Output Total 1200 450 Balance 1178 -1200 -90 Intake: Intake, IV Titration 100 Amount Piperacillin-Tazobactam 3 100 .375 gm In Sodium Chloride 0.9% 100 ml @ 25 mls/hr IVPB Q8H [facility] Rx#: [id number] Oral 1078 360 Output: Urine 1200 450 Uretheral (Shook) 450 Other: Voiding Method Indwelling Catheter Indwelling Catheter Toilet # Bowel Movements 1 - Exam GENERAL DESCRIPTION: An elderly male lying in bed in no distress RESPIRATORY SYSTEM: Unlabored breathing , decreased breath sounds at bases HEART: S1 S2 regular rate and rhythm , ABDOMEN: Soft , no tenderness EXTREMITIES: No edema feet - Labs CBC & Chem 7: 03/03/24 09:41 03/04/24 09:18 Labs: Abnormal Lab Results - Last 24 Hours (Table) 03/03/24 03/03/24 03/04/24 Range/Units 16:44 20:03 09:18 Chloride 115 H (98-107) mmol/L BUN 32 H (9-20) mg/dL Glucose 116 H (74-99) mg/dL POC Glucose (mg/dL) 142 H 128 H (70-110) mg/dL 03/04/24 Range/Units 11:34 Chloride (98-107) mmol/L BUN (9-20) mg/dL Glucose (74-99) mg/dL POC Glucose (mg/dL) 150 H (70-110) mg/dL Microbiology - Last 24 Hours (Table) 03/02/24 15:25 Gram Stain - Preliminary Sputum Assessment and Plan (1) Hypoxia Current Visit: Yes Status: Acute Code(s): R09.02 - HYPOXEMIA SNOMED Code(s): 275740644 (2) Pneumonia Current Visit: Yes Status: Acute Code(s): J18.9 - PNEUMONIA, UNSPECIFIED ORGANISM SNOMED Code(s): 725990662 Plan: 1patient presented to hospital with acute respiratory failure in this patient who is currently hypoxic on BiPAP patient did have a left-sided infiltrate on chest x-ray elevated white count concerning for pneumonia to be a likely source keeping in mind patient being out of the hospital could be gram-negative pathogen 2- sputum culture has been obtained and currently pending procalcitonin level is normal, MRSA nasal screen was negative 3-patient seem to be doing well off antibiotic therapy and will be monitored closely Dictation was produced using [employer] dictation software. please excuse any grammatical, word or spelling errors. Time with Patient: Less than 30
--- NOTE | 2024-03-04 15:43 | P.PN ---
Progress Note - Text Progress Note Date: 03/04/24 Hospital course: * 69-year-old patient with past medical history significant for COPD, congestive heart failure, history of bipolar disorder, hypothyroid, hyperlipidemia, atrial fibrillation previous history of PEA cardiac arrest in 2022presents to the emergency department secondary to altered mental status, respiratory distress low blood pressure and hypoxia. Patient was accepted as a crossover from an outside hospital for renal failure pneumonia respiratory failure and septic shock. * workup initiated in ER included CBC which were WBC of 12.6 hemoglobin 15.7 platelet count of 93, INR of 1.3 * Blood gas obtained showed pH of 7.19 pCO2 62 * serum chemistry obtained showed creatinine of 5.35 previous creatinine of 1.39. serum chemistry obtained showed sodium 138 potassium 4.6 carbon dioxide 19 BU and 60. Blood glucose 126. Albumin of 3.4 * 03/02/24: Patient seen and evaluated bedside patient remains admitted ER room 4 waiting for bed in medical ICU. Seen by concrete analyst in ED, patient weaned off Levophed, follow-up blood work ordered. Blood pressure has improved, patient to go to general medical floor/stepdown unit, mentation has improved alert and oriented x 4. Weaned off BiPAP on nasal cannula March 03: I assumed care of the patient today. On a BiPAP. Setting of 14/6/50%. Coughing up some bloody sputum. Cough is present. Did not eat Basilia to eat a good lunch. Wants to sit up in a chair. March 04: Patient overnight was on BiPAP. At 50%. Morning switched over to 6 L. Oral intake good. Intermittent cough. Will give a trial of DC Shook. Remains in atrial fibrillation. Lopressor was increased to 75 mg twice daily yesterday. Increased to her milligram twice daily today. Up in a chair. Add incentive spirometry Active Medications Acetaminophen (Acetaminophen Tab 325 Mg Tab) 650 mg PO Q6HR PRN PRN Reason: Mild Pain or Fever > 100.5 Albuterol/Ipratropium (Ipratropium-Albuterol 3 Ml Neb) 3 ml INHALATION RT-QID PENDING SALE TO [facility] Last Admin: 03/04/24 12:27 Dose: 3 ml Amiodarone HCl (Amiodarone 100 Mg Tab) 100 mg PO DAILY PENDING SALE TO [facility] Last Admin: 03/04/24 09:06 Dose: 100 mg Apixaban (Apixaban 5 Mg Tab) 5 mg PO BID PENDING SALE TO [facility]; Protocol Last Admin: 03/04/24 09:06 Dose: 5 mg Benzonatate (Benzonatate 100 Mg Cap) 100 mg PO TID PRN PRN Reason: Cough Last Admin: 03/02/24 00:26 Dose: 100 mg Budesonide/Formoterol Fumarate (Symbicort 160-4.5 Mcg Inhaler) 2 puff INHALATION RT-BID PENDING SALE TO [facility] Last Admin: 03/04/24 08:59 Dose: 2 puff Guaifenesin (Guaifenesin 600 Mg Tablet.Er) 600 mg PO Q12HR PENDING SALE TO [facility] Last Admin: 03/04/24 09:06 Dose: 600 mg Latanoprost (Latanoprost 0.005% Ophth Drops 2.5 Ml Btl) 1 drops LEFT EYE [facility] Last Admin: 03/03/24 20:17 Dose: 1 drops Levothyroxine Sodium (Levothyroxine 125 Mcg Tab) 125 mcg PO 0630 PENDING SALE TO [facility] Last Admin: 03/04/24 06:26 Dose: 125 mcg Methylprednisolone Sodium Succinate (Methylprednisolone Sod Succi 125 Mg/2 Ml Vial) 40 mg IV Q8H PENDING SALE TO [facility] Metoprolol Tartrate (Metoprolol Tartrate 5 Mg/5 Ml Vial) 5 mg IVP Q6HR PRN PRN Reason: Heart Rate - HIGH Metoprolol Tartrate (Metoprolol Tartrate 50 Mg Tab) 100 mg PO BID PENDING SALE TO [facility] Midodrine (Midodrine 5 Mg Tab) 5 mg PO AC-TID PENDING SALE TO [facility] Last Admin: 03/04/24 12:14 Dose: Not Given Miscellaneous Information (Pneumonia Protocol Utilized 1 Each Misc) 1 each PO ONCE PRN PRN Reason: Per Protocol Morphine Sulfate (Morphine Sulfate 2 Mg/Ml Syringe) 1 mg IV Q4HR PRN PRN Reason: Severe Pain (Scale 7 to 10) Naloxone HCl (Naloxone 0.4 Mg/Ml 1 Ml Vial) 0.2 mg IV Q2M PRN PRN Reason: Opioid Reversal Nicotine (Nicotine 21mg/24hr Patch) 1 patch TRANSDERM DAILY PENDING SALE TO [facility] Last Admin: 03/04/24 09:07 Dose: 1 patch Olanzapine (Olanzapine 10 Mg Tab) 20 mg PO HS PENDING SALE TO [facility] Last Admin: 03/03/24 21:22 Dose: 20 mg Ondansetron HCl (Ondansetron 4 Mg/2 Ml Vial) 4 mg IVP Q8HR PRN PRN Reason: Nausea And Vomiting Pantoprazole Sodium (Pantoprazole 40 Mg Tablet) 40 mg PO 0730 PENDING SALE TO [facility] Last Admin: 03/04/24 06:26 Dose: 40 mg Paroxetine HCl (Paroxetine 10 Mg Tab) 30 mg PO DAILY PENDING SALE TO [facility] Last Admin: 03/04/24 09:06 Dose: 30 mg Tamsulosin HCl (Tamsulosin 0.4 Mg Cap.Er.24h) 0.4 mg PO PC-BRKFST PENDING SALE TO [facility] Last Admin: 03/04/24 09:06 Dose: 0.4 mg Tiotropium [place] (Tiotropium 2.5 Mcg Inhaler) 2 puff INHALATION RT-DAILY PENDING SALE TO [facility] Last Admin: 03/04/24 08:59 Dose: 2 puff Physical examination: VITAL SIGNS: 98, RR 16, 19, 116 per 82, 90% on 6 L GENERAL: Up in a chair some shortness of breath EYES: Pupils equal. Conjunctiva normal. HEENT: External appearance of nose and ears normal, oral cavity grossly normal. NECK: JVD is able to assess; masses not palpable. HEART: First and second heart sounds are normal; edema present LUNGS: Respiratory rate increased; decreased breath sounds , coarse breath sounds ABDOMEN: Soft, nontender, liver spleen not palpable, no masses palpable. PSYCH: Basilia x 3, mood affect normal MUSCULOSKELETAL:No Clubbing/cyanosis;muscles-grossly intact. Evidence of OA INVESTIGATIONS, reviewed in the clinical context: March 04: Potassium 4.8 BUN 32 creatinine 1.10 Renal ultrasound: No hydronephrosis. Right kidney 11.1 x 5.5 x 5.3 cm. Left kidney 13 x 6.2 x 5.2 cm. assessment and plan: -[id number] shock from volume depletion: Resolved -No pneumonia Antibiotic discontinued per pulmonary -Acute hypoxic and hypercapnic respiratory failure secondary to COPD exacerbation: Slow to respond On BiPAP. 50% overnight. This morning 6 L. -Paroxysmal atrial fibrillation flutter, currently rate somewhat uncontrolled Amiodarone. Eliquis. Lopressor increased to 100 g twice daily Being followed by cardiology -Acute COPD exacerbation in a current smoker: Slow to respond DuoNeb. Symbicort. IV [id number] to 40 mg Q8. -Acute kidney injury likely ATN, and urine retention: Improving Admission creatinine 5.35 -Metabolic acidosis secondary to acute kidney injury. Improved - Chronic congestive heart failure from systolic/diastolic dysfunction EF 45-50%-better -History of cardiac arrest/pulseless electrical activity in January 2023 -Chronic nicotine dependence, cigarette smoker Nicotine patch -BPH with bladder outflow obstruction Shook was placed on presentation. Flomax. Seen by Dr. Gould from urology. Trial of DC Shook today. -Hypothyroid Levothyroxine 125 g a day -Essential hypertension . Lopressor 50 mg twice a day -Bipolar disorder Zyprexa 20 mg daily at bedtime. Paxil. Discussed with patient. Cut back Solu-Medrol to 40 mg every 8. Trial of DC Shook.
[2024-03-04 16:23] LABS: Glucose,Whole Blood 139 mg/dL (70-110)
[2024-03-04] MEDS: methylPREDNISolone SOD SUCCI 40 MG/ML 1 ML VIAL IV SCH (17:16)
[2024-03-04] MEDS: METOPROLOL TARTRATE 50 MG TAB PO SCH (19:50)
[2024-03-04 20:14] LABS: Glucose,Whole Blood 157 mg/dL (70-110)
[2024-03-05 06:29] LABS: Glucose,Whole Blood 124 mg/dL (70-110)
--- NOTE | 2024-03-05 11:19 | P.PN ---
Subjective Patient is seen in follow-up for acute kidney injury. Renal function improved. Shook catheter now removed. Has been voiding on his own. Oral intake is good. No vomiting or diarrhea. Vital signs are stable. General: No acute distress. HEENT: Head exam is unremarkable. On nasal cannula. LUNGS: No audible rhonchi or wheezes. HEART: Rate and Rhythm are regular. ABDOMEN: Nontender. EXTREMITITES: No edema. Objective - Vital Signs Vital signs: Vital Signs Temp 98.1 F 03/05/24 08:00 Pulse 71 03/05/24 09:06 Resp 20 03/05/24 09:06 BP 141/79 03/05/24 08:00 Pulse Ox 94 L 03/05/24 09:03 FiO2 50 03/04/24 21:26 Intake & Output 03/04/24 03/05/24 03/05/24 18:59 06:59 18:59 Intake Total 360 240 Output Total 450 Balance -90 240 Intake: Oral 360 240 Output: Urine 450 Uretheral (Shook) 450 Other: Voiding Method Toilet Toilet Toilet Urinal Urinal # Voids 1 # Bowel Movements 1 - Labs CBC & Chem 7: 03/03/24 09:41 03/04/24 09:18 Labs: Abnormal Lab Results - Last 24 Hours (Table) 03/04/24 03/04/24 03/04/24 Range/Units 11:34 16:19 20:12 POC Glucose (mg/dL) 150 H 139 H 157 H (70-110) mg/dL 03/05/24 Range/Units 06:28 POC Glucose (mg/dL) 124 H (70-110) mg/dL Microbiology - Last 24 Hours (Table) 03/02/24 15:25 Gram Stain - Final Sputum Sputum Culture - Final Alana glabrata Alana sp,not albicans/galbr Assessment and Plan Plan: Assessment: 1. Acute kidney injury secondary to urinary retention with component of ATN. UA benign. No hydronephrosis noted on kidney ultrasound. Renal function improving. Creatinine over 5 on admission - 1.1 yesterday. 2. Metabolic acidosis secondary to acute kidney injury. Improved. 3. Benign hypertension. Controlled. 4. Acute hypoxic and hypercapnic respiratory failure. Being treated for acute COPD exacerbation. Plan: Encouraged oral intake. Maintain Flomax. Stop midodrine.
[2024-03-05 11:38] LABS: Glucose,Whole Blood 111 mg/dL (70-110)
--- NOTE | 2024-03-05 12:45 | P.PN ---
Subjective Progress Note Date: 03/05/24 Principal diagnosis: Reason for follow-up is pneumonia Patient is a 69-year-old male with a past medical history significant for hypertension hyperlipidemia COPD atrial fibrillation hypothyroidism, cardiac arrest January 2023, patient presented to hospital for evaluation of increasing shortness of breath patient noticed to be hypoxic requiring BiPAP chest x-ray new consolidation left lung concerning for pneumonia. On today's evaluation that is 03/05/2024,the patient denies any fever or any chills, patient is breathing comfortably and is down to 5 L nasal cannula ox ygen, the patient denies chest pain shortness of breath and cough has decreased in intensity, patient denies abdominal pain, no nausea vomiting or diarrhea. Feeling better wants to go home. No new labs were obtained today sputum culture grew Alana glabrata Objective - Vital Signs Vital signs: Vital Signs Temp 98.4 F 03/05/24 11:53 Pulse 108 H 03/05/24 11:53 Resp 18 03/05/24 11:53 BP 133/91 03/05/24 11:53 Pulse Ox 92 L 03/05/24 11:53 FiO2 50 03/04/24 21:26 Intake & Output 03/04/24 03/05/24 03/05/24 18:59 06:59 18:59 Intake Total 360 480 Output Total 450 Balance -90 480 Intake: Oral 360 480 Output: Urine 450 Uretheral (Shook) 450 Other: Voiding Method Toilet Toilet Toilet Urinal Urinal # Voids 1 1 # Bowel Movements 1 - Exam GENERAL DESCRIPTION: An elderly male lying in bed in no distress RESPIRATORY SYSTEM: Unlabored breathing , decreased breath sounds at bases HEART: S1 S2 regular rate and rhythm , ABDOMEN: Soft , no tenderness EXTREMITIES: No edema feet - Labs CBC & Chem 7: 03/03/24 09:41 03/04/24 09:18 Labs: Abnormal Lab Results - Last 24 Hours (Table) 03/04/24 03/04/24 03/05/24 Range/Units 16:19 20:12 06:28 POC Glucose (mg/dL) 139 H 157 H 124 H (70-110) mg/dL 03/05/24 Range/Units 11:36 POC Glucose (mg/dL) 111 H (70-110) mg/dL Microbiology - Last 24 Hours (Table) 04/21/24 15:25 Gram Stain - Final Sputum Sputum Culture - Final Alana glabrata Alana sp,not albicans/galbr Assessment and Plan (1) Hypoxia Current Visit: Yes Status: Acute Code(s): R09.02 - HYPOXEMIA SNOMED Code(s): 953548061 (2) Pneumonia Current Visit: Yes Status: Acute Code(s): J18.9 - PNEUMONIA, UNSPECIFIED ORGANISM SNOMED Code(s): 489563876 Plan: 1patient presented to hospital with acute respiratory failure in this patient who is currently hypoxic on BiPAP patient did have a left-sided infiltrate on chest x-ray elevated white count concerning for pneumonia with initial concern for possible gram-negative pneumonia 2- sputum culture has been obtained and currently growing Alana glabrata, procalcitonin level is normal, MRSA nasal screen was negative 3-patient positive sputum cultures most likely colonization/possible oropharyngeal candidiasis we will add nystatin swish and swallow no need for voriconazole Dictation was produced using [employer] dictation software. please excuse any grammatical, word or spelling errors. Time with Patient: Less than 30
--- NOTE | 2024-03-05 12:59 | CA ---
Transthoracic Echo Report Name: Vinod Geller Age: 69 Gender: M : 1955 Exam Date: 03/04/2024 16:10 Exam Location: [place] [facility] Ht (in): 74 Wt (lb): 250 Ordering Physician: Patricia Thibodeaux Attending/Referring Phys: [id number], Morelia Shaper And Presser Norah Salas RCS Procedure CPT: Indications: LVF Cardiac Hx: Technical Quality: Technically difficult study Contrast 1: Definity Total Dose (mL): 2 Contrast 2: Total Dose (mL): MEASUREMENTS (Male / Female) Normal Values 2D ECHO LV Diastolic Diameter PLAX 4.0 cm 4.2 - 5.9 / 3.9 - 5.3 cm LV Systolic Diameter PLAX 2.9 cm IVS Diastolic Thickness 1.0 cm 0.6 - 1.0 / 0.6 - 0.9 cm LVPW Diastolic Thickness 1.0 cm 0.6 - 1.0 / 0.6 - 0.9 cm LV Relative Wall Thickness 0.5 RV Internal Dim ED PLAX 2.5 cm LVOT Diameter 2.3 cm Aortic Root Diameter 4.0 cm LV Diastolic Volume MOD BP 100.9 cm??? 67 - 155 / 56 - 104 cm??? LV Systolic Volume MOD BP 40.2 cm??? 22 - 58 / 19 - 49 cm??? LV Ejection Fraction MOD BP 60.1 % >= 55 % LV Cardiac Index MOD BP 2907.8 cm???/min???m??? LV Diastolic Volume MOD 4C 104.5 cm??? LV Systolic Volume MOD 4C 39.7 cm??? LV Ejection Fraction MOD 4C 62.0 % LV Cardiac Index MOD 4C 3105.8 cm???/min???m??? LV Diastolic Length 4C 7.4 cm LV Systolic Length 4C 6.0 cm LV Diastolic Volume MOD 2C 91.4 cm??? LV Systolic Volume MOD 2C 39.1 cm??? LV Ejection Fraction MOD 2C 57.3 % LV Cardiac Index MOD 2C 2508.6 cm???/min???m??? LV Diastolic Length 2C 6.8 cm LV Systolic Length 2C 5.6 cm DOPPLER AV Peak Velocity 127.7 cm/s AV Peak Gradient 6.5 mmHg AV Mean Velocity 89.2 cm/s AV Mean Gradient 3.6 mmHg AV Velocity Time Integral 20.9 cm LVOT Peak Velocity 85.0 cm/s LVOT Peak Gradient 2.9 mmHg LVOT Velocity Time Integral 15.0 cm LVOT Stroke Volume 61.1 cm??? LVOT Stroke Volume Index 25.6 ml/m??? LVOT Cardiac Index 2925.8 cm???/min???m??? AV Area Cont Eq vti 2.9 cm??? AV Area Cont Eq pk 2.7 cm??? TR Peak Velocity 265.4 cm/s TR Peak Gradient 28.2 mmHg Right Atrial Pressure 15.0 mmHg Pulmonary Artery Systolic Pressu 43.2 mmHg Right Ventricular Systolic Press 43.2 mmHg FINDINGS Left Ventricle Left ventricular ejection fraction is estimated at 55-60 % with beat to beat variability. Left ventricular cavity size normal. Left ventricular wall thickness normal. No obvious regional wall motion abnormalities. Right Ventricle Normal right ventricular size and function. Mildly elevated right ventricular systolic pressure. Right Atrium Mild right atrial dilatation. Left Atrium Mild left atrial dilatation. Mitral Valve Structurally normal mitral valve. No evidence for mitral valve prolapse. No mitral stenosis. Trace mitral regurgitation. Aortic Valve Trileaflet aortic valve. No aortic stenosis. No aortic regurgitation. Tricuspid Valve Structurally normal tricuspid valve. No tricuspid stenosis. Mild tricuspid regurgitation. Pulmonic Valve Pulmonic valve not well visualized. No pulmonic stenosis. No pulmonic regurgitation. Pericardium No pericardial effusion. Aorta Mildly dilated aortic annulus. Ascending aorta not well visualized. CONCLUSIONS Preserved LV size and systolic function Mild left atrial enlargement Previewed by: Dr. Franklyn Hart MD (Electronically Signed) Final Date: 05 March 2024 12:58
--- NOTE | 2024-03-05 14:18 | P.PN ---
Subjective Progress Note Date: 03/05/24 Principal diagnosis: Shortness of breath. This is a 69-year-old white male with history of multiple medical problems including COPD, obesity, chronic congestive heart failure, bipolar disorder, hypothyroidism, chronic atrial fibrillation, patient is familiar to my service, I saw him back in January of 2023, patient had at the time in hospital cardiac arrest requiring CPR and subsequent return of spontaneous circulation CPR was as long as 5 minutes. Other medical problems at that time included underlying COPD, hypertension, bilateral pneumonia, hypertension, bipolar disorder, and generalized anxiety disorder patient was actually discharged back then on 01/26/2023, patient had follow-up with cardiology few months later, and he underwent cardiac catheterization where he was found to have minimal coronary artery disease, elevated left-sided filling pressures, ejection fraction was 60 to 65% at that time. Hence the patient was advised mostly medical therapy. On this admission the patient came in as a referral from an outside facility for pneumonia wherein he presented with symptoms of shortness of breath, hypoxia, low blood pressure, abnormal labs with findings of renal failure, patient was evaluated by the ER physician, and he was in significant respiratory distress placed on BiPAP. With IPAP of 14, EPAP of 6, FiO2 of 60%, ABG showed a pO2 of 69 pCO2 62 pH of 7. 1 9, consistent with a picture of metabolic and respiratory acidosis, for his metabolic acidosis I recommended an amp of bicarb, follow-up ABG showed a pO2 of 95 pCO2 48 pH of 7.26, FiO2 was cut down to 50%. Patient is requiring norepinephrine at 0.11 mcg/kg/min he received an amp of bicarb, and antibiotics webb I am recommending Zosyn every 12 hours. Chest x-ray showed a large hiatal hernia with bilateral bibasilar atelectasis, underlying pneumonia is not entirely ruled out. Especially in the left lung base and I did evaluate the patient in the ER, patient had negative screening for influenza A influenza B RSV and COVID-19 I will admit the patient to the ICU for further treatment of his sepsis/septic shock presentation and acute on chronic hypoxic and hypercapnic respiratory failure with severe metabolic respiratory and metabolic acidosis. The patient is seen today March 02, 2024 in follow-up on the in the end emergency department. He is currently sitting up on a stretcher. Awake and alert in no acute distress. He is feeling actually quite back to his baseline compared to yesterday. Very alert and talkative. He is currently off the BiPAP and on 4 L/min per nasal cannula. He is afebrile. Slightly tachycardic. Chest x-ray shows a very large hiatal hernia. Some superimposed airspace disease extending to the left upper lobe. White count 16.3. Hemoglobin 14.1. P latelets 93,000. Sodium 145. Potassium 4.3. Bicarb 25. BUN 42. Creatinine 2.01. Glucose 128. Procalcitonin 0.04. He is continued on DuoNeb ventilations, Symbicort, Areva, Solu-Medrol. Antibiotics in form of Zosyn and doxycycline. Anticoagulated with Eliquis. Progress note dated March 03, 2024. The patient is seen today in room 372. His procalcitonin level was 0.04. His Zosyn and doxycycline can be discontinued. The patient is getting saline at 75 cc an hour. He continues on 6 L of nasal oxygen. The BiPAP device is at the bedside, with settings of 14/6, and 50%. The patient does not appear to be in any distress at this time. Current labs include a white count 15.7, hemoglobin 14.8, hematocrit 47.7, and a platelet count of 92,000. Sodium 146, potassium 4.5, chlorides 118, CO2 26, BUN 35, creatinine 1.29. Glucose is 140. TSH is 0.098. Calcium 9.1, and free T4 is 2.26. Chest x-ray shows a very large hiatal hernia, which is known. In addition, there is some airspace disease, on the left. Progress note dated March 04, 2024. The patient is seen today in room 372. Currently, the patient is on BiPAP, with settings of 14/6 and 50%. The patient is not receiving any IV fluids. Prior to the BiPAP, being placed, the patient was on oxygen by nasal cannula at 6 L. He is sitting up in a chair. Shook catheter in place. He appears relatively comfortable. Current laboratory data includes a sodium 145, potassium 4.8, chlorides 115, CO2 26, BUN 32, creatinine 1.10. Glucose is 116. Calcium 9.1 and magnesium is 2.1. Culture data is currently negative or pending. No recent chest x-ray. Progress note dated March 05, 2024. The patient was seen in room 372. He is sitting in a chair next to his bed. He is currently on 5 L nasal cannula. He is not receiving any IV fluids. He did use BiPAP last night for a couple of hours. Settings include 14/6, and 50%. Current labs include only a glucose of 111. Sputum revealed Alana. No recent chest x-rays to report. Objective - Vital Signs Vital signs: Vital Signs Temp 98.4 F 03/05/24 11:53 Pulse 108 H 03/05/24 11:53 Resp 18 03/05/24 11:53 BP 133/91 03/05/24 11:53 Pulse Ox 92 L 03/05/24 11:53 FiO2 50 03/04/24 21:26 Intake & Output 03/04/24 03/05/24 03/05/24 18:59 06:59 18:59 Intake Total 360 480 Output Total 450 Balance -90 480 Intake: Oral 360 480 Output: Urine 450 Uretheral (Shook) 450 Other: Voiding Method Toilet Toilet Toilet Urinal Urinal # Voids 1 1 # Bowel Movements 1 - Exam No acute distress, currently on nasal O2 at 5 L. HEENT examination is grossly unremarkable. Neck supple. Full range of motion. No adenopathy thyromegaly or neck vein distention. Cardiovascular examination reveals regular rhythm rate. S1-S2 normal. No S3 or S4. No discernible murmur noted. Heart sounds are distant. Heart rate 99 bpm. Lungs reveal scattered bilateral rhonchi. No wheezes. Minimal crackles. Saturations are 92% on 5 L nasal cannula. Abdomen soft bowel sounds are heard. No masses or tenderness. Extremities are intact. No cyanosis clubbing or edema. Skin is without rash or lesion. Neurologic examination is brief but nonfocal. - Labs CBC & Chem 7: 03/03/24 09:41 03/04/24 09:18 Labs: Abnormal Lab Results - Last 24 Hours (Table) 03/04/24 03/04/24 03/05/24 Range/Units 16:19 20:12 06:28 POC Glucose (mg/dL) 139 H 157 H 124 H (70-110) mg/dL 03/05/24 Range/Units 11:36 POC Glucose (mg/dL) 111 H (70-110) mg/dL Microbiology - Last 24 Hours (Table) 03/02/24 15:25 Legionella Culture - Preliminary Sputum 03/02/24 15:25 Gram Stain - Final Sputum Sputum Culture - Final Alana glabrata Alana sp,not albicans/galbr Assessment and Plan Assessment: Acute hypoxic and hypercapnic respiratory failure, secondary to an acute exacerbation of chronic obstructive pulmonary disease. Acute on chronic kidney injury, possible ATN. Acute exacerbation of COPD. Large hiatal hernia. Acute respiratory and acute metabolic acidosis secondary to his pulmonary status and secondary to renal status. History of chronic atrial fibrillation. History of diastolic congestive heart failure and previous cardiac arrest/pulseless electrical activity back in January of 2023. Plan: Plan dated March 03, 2024. The patient is seen today in room 372. The patient is currently on 6 L of oxygen. His antibiotics can be discontinued, as the patient's procalcitonin level was 0.04. The patient continues on saline at 75 cc an hour. The patient will continue on bronchodilators and steroids. We will continue to follow make recommendations along the way. Labs, x-rays, medications are reviewed. The patient's overall prognosis remains guarded. Plan dated March 04, 2024. The patient is seen today in room 372. The patient is currently on BiPAP, with settings of 14/6, and 50%. He is not receiving any IV fluids. Prior to being placed on BiPAP, the patient was on 6 L by nasal cannula. Labs, x-rays, medications are reviewed. The patient is sitting in the chair next to his hospital bed. The patient does not appear to have any ranjana respiratory diffi culty or distress. We will continue to follow make recommendations along the way. Prognosis is certainly guarded. Plan dated March 05, 2024. The patient appears to be doing relatively well. He is seen in room 372. He is sitting in the chair next to his hospital bed. He is on 5 L nasal cannula. He is not manifesting any signs or symptoms of respiratory difficulty or distress. He is not receiving any IV fluids. He did use BiPAP last night, for about 2 hours, with settings of 14/6 and 50%. Labs, x-rays, medications are reviewed. We will continue to follow the patient, make recommendations along the way. Time with Patient: Less than 30
--- NOTE | 2024-03-05 15:07 | P.PN ---
Subjective Progress Note Date: 03/05/24 Consult reason: atrial fibrillation (With RVR) History of present illness: This is a 69-year-old male patient of Dr. Jasso with past medical history of paroxysmal atrial fibrillation, hyperlipidemia, mildly reduced EF of 40 to 45% with recovered EF, COPD, history of in-hospital cardiac arrest requiring CPR for 5 minutes with return of spontaneous circulation, significant hiatal hernia with near complete stomach in the thoracic cavity, AVNRT. We have been asked to evaluate the patient for A-fib with RVR. On patient's last office visit on 11/01/2023, there was discussion regarding cardiac ablation for atrial fibrillation. Patient presented to the hospital due to shortness of breath, hypoxia, low blood pressure and abnormal lab work as a transfer for pneumonia and respiratory failure from another facility. Patient presented on 03/01. He has been followed by infectious disease, nephrology, pulmonary medicine. Patient was initially admitted into the intensive care unit for sepsis and septic shock and is now on the cardiac stepdown unit. Patient has been resumed on his home cardiac medications. His mental status is improving. EKG atrial fibrillation with ventricular rate of 91 bpm. Telemetry yesterday afternoon was atrial fibrillation up to the 150s and currently running in the irregular 109. Chest x-ray: Large hiatal hernia with entire stomach sizable portion of transverse colon herniated into the chest. Superimposed airspace disease extending into the left upper lobe that appears increased. WBC 16.3, hemoglobin 14.1, platelet count 93. INR 1.3. Sodium 145, potassium 4.3, chloride 118, initial CO2 1925. Initial BUN 60 and repeat 42. Initial creatinine 5.35 and now 2.01. Troponin negative x 1. C-reactive protein 4.1. proBNP 721. Procalcitonin 0.04. Home cardiac medications: Amiodarone 100 mg daily, Eliquis 5 mg twice daily, aspirin 81 mg daily, Lasix 40 mg daily, lisinopril 2.5 mg twice daily, Lopressor 50 mg twice daily, midodrine 5 mg 3 times daily. Cardiac catheterization performed 04/16/[address] Jasso revealed mild to moderate CAD with 30% RCA, 40% LAD stenosis. Elevated left-sided filling pres sures. EF 60 to 65%. [facility] and cardioversion performed on 11/16/2020 Echocardiogram performed on 01/12/2023 revealed poor quality. Mild global decrease in contractility. Mild mitral annular calcification and aortic sclerosis. Mild tricuspid regurgitation. Right-sided pressures are not well quantified. No pericardial effusion. EF 45 to 50%. 03/04 Patient is seen today on the cardiac stepdown unit. Blood pressure 116/82, heart rate 96-116, pulse ox 90% on 6 L nasal cannula. Repeat blood work reveals potassium 4.8, BUN 32 creatinine 1.1. Yesterday, metoprolol tartrate was increased to 75 mg twice daily for rate control. Patient remains in atrial fibrillation. 03/05 Patient denies any new concerns today. He denies any chest pain. No shortness of breath. During the stay, we increased his Lopressor to 100 mg twice daily. Heart rate is about 100, blood pressure 133/91, pulse ox 92% on 5 L nasal cannula. Echocardiogram reveals preserved LV size and systolic function. Mild left atrial enlargement. Physical examination: Gen: This is a 69-year-old male in no acute distress VS: reviewed HEENT: Head is atraumatic, normocephalic. Pupils equal, round. Sclerae is anicteric. NECK: Supple. No JVD. LUNGS: Diminished breath sounds. No intercostal retractions. HEART: Irregular rate and rhythm. No murmur. ABDOMEN: Soft No tenderness. EXTREMITIES: No pedal edema. No calf tenderness. NEUROLOGICAL: Patient is awake, alert and oriented x3. Assessment: Paroxysmal atrial fibrillation with RVR Acute hypoxic and hypercapnic respiratory failure Acute exacerbation of COPD Possible aspiration pneumonia, sepsis, septic shock Acute kidney injury Metabolic acidosis Thrombocytopenia Hyperlipidemia History of reduced EF that has recovered Tobacco use and dependence Significant hiatal hernia History of in-hospital CPR with return of spontaneous circulation Plan: Continue patient's home cardiac medications Continue Lopressor 100 mg twice daily Patient is cleared from cardiology for discharge and may follow-up with Dr. Jasso in 1 to 2 weeks. Nurse practitioner note has been reviewed, I agree with documented findings and plan of care. Patient was seen and examined. Objective - Vital Signs Vital signs: Vital Signs Temp 98.4 F 03/05/24 11:53 Pulse 108 H 03/05/24 11:53 Resp 18 03/05/24 11:53 BP 133/91 03/05/24 11:53 Pulse Ox 92 L 03/05/24 11:53 FiO2 50 03/04/24 21:26 Intake & Output 03/04/24 03/05/24 03/05/24 18:59 06:59 18:59 Intake Total 360 480 Output Total 450 Balance -90 480 Intake: Oral 360 480 Output: Urine 450 Uretheral (Shook) 450 Other: Voiding Method Toilet Toilet Toilet Urinal Urinal # Voids 1 1 # Bowel Movements 1 - Labs CBC & Chem 7: 03/03/24 09:41 03/04/24 09:18 Labs: Abnormal Lab Results - Last 24 Hours (Table) 03/04/24 03/04/24 03/05/24 Range/Units 16:19 20:12 06:28 POC Glucose (mg/dL) 139 H 157 H 124 H (70-110) mg/dL 03/05/24 Range/Units 11:36 POC Glucose (mg/dL) 111 H (70-110) mg/dL Microbiology - Last 24 Hours (Table) 03/02/24 15:25 Gram Stain - Final Sputum Sputum Culture - Final Alana glabrata Alana sp,not albicans/galbr
[2024-03-05] MEDS: NYSTATIN 100,000 UNIT/ML SUSP 500,000 UNIT/5 ML CUP PO SCH (15:27)
--- NOTE | 2024-03-05 15:42 | P.PN ---
Progress Note - Text Progress Note Date: 03/05/24 Hospital course: * 69-year-old patient with past medical history significant for COPD, congestive heart failure, history of bipolar disorder, hypothyroid, hyperlipidemia, atrial fibrillation previous history of PEA cardiac arrest in 2022presents to the emergency department secondary to altered mental status, respiratory distress low blood pressure and hypoxia. Patient was accepted as a crossover from an outside hospital for renal failure pneumonia respiratory failure and septic shock. * workup initiated in ER included CBC which were WBC of 12.6 hemoglobin 15.7 platelet count of 93, INR of 1.3 * Blood gas obtained showed pH of 7.19 pCO2 62 * serum chemistry obtained showed creatinine of 5.35 previous creatinine of 1.39. serum chemistry obtained showed sodium 138 potassium 4.6 carbon dioxide 19 BU and 60. Blood glucose 126. Albumin of 3.4 * 03/02/24: Patient seen and evaluated bedside patient remains admitted ER room 4 waiting for bed in medical ICU. Seen by international trade manager in ED, patient weaned off Levophed, follow-up blood work ordered. Blood pressure has improved, patient to go to general medical floor/stepdown unit, mentation has improved alert and oriented x 4. Weaned off BiPAP on nasal cannula March 03: I assumed care of the patient today. On a BiPAP. Setting of 14/6/50%. Coughing up some bloody sputum. Cough is present. Did not eat [place] to eat a good lunch. Wants to sit up in a chair. March 04: Patient overnight was on BiPAP. At 50%. Morning switched over to 6 L. Oral intake good. Intermittent cough. Will give a trial of DC Shook. Remains in atrial fibrillation. Lopressor was increased to 75 mg twice daily yesterday. Increased to her milligram twice daily today. Up in a chair. Add incentive spirometry March 05: Patient used BiPAP for about couple of hours last night. Remains on 6 L nasal cannula. Sitting up in a chair eating lunch. Heart rate is around 100. Remains on IV Solu-Medrol. Patient reminded to do incentive spirometry every 10 minutes. Active Medications Acetaminophen (Acetaminophen Tab 325 Mg Tab) 650 mg PO Q6HR PRN PRN Reason: Mild Pain or Fever > 100.5 Albuterol/Ipratropium (Ipratropium-Albuterol 3 Ml Neb) 3 ml INHALATION RT-QID TESFAYE Last Admin: 03/05/24 15:14 Dose: 3 ml Amiodarone HCl (Amiodarone 100 Mg Tab) 100 mg PO DAILY [facility] Last Admin: 03/05/24 08:16 Dose: 100 mg Apixaban (Apixaban 5 Mg Tab) 5 mg PO BID [facility]; Protocol Last Admin: 03/05/24 08:16 Dose: 5 mg Benzonatate (Benzonatate 100 Mg Cap) 100 mg PO TID PRN PRN Reason: Cough Last Admin: 03/02/24 00:26 Dose: 100 mg Budesonide/Formoterol Fumarate (Symbicort 160-4.5 Mcg Inhaler) 2 puff INHALATION RT-BID [facility] Last Admin: 03/05/24 08:59 Dose: 2 puff Guaifenesin (Guaifenesin 600 Mg Tablet.Er) 600 mg PO Q12HR [facility] Last Admin: 03/05/24 08:15 Dose: 600 mg Latanoprost (Latanoprost 0.005% Ophth Drops 2.5 Ml Btl) 1 drops LEFT EYE HS [facility] Last Admin: 03/04/24 19:51 Dose: 1 drops Levothyroxine Sodium (Levothyroxine 125 Mcg Tab) 125 mcg PO 0630 [facility] Last Admin: 03/05/24 06:28 Dose: 125 mcg Methylprednisolone Sodium Succinate (Methylprednisolone Sod Succi 40 Mg/Ml 1 Ml Vial) 40 mg IV Q8HR [facility] Last Admin: 03/05/24 08:15 Dose: 40 mg Metoprolol Tartrate (Metoprolol Tartrate 5 Mg/5 Ml Vial) 5 mg IVP Q6HR PRN PRN Reason: Heart Rate - HIGH Metoprolol Tartrate (Metoprolol Tartrate 50 Mg Tab) 100 mg PO BID [facility] Last Admin: 03/05/24 08:16 Dose: 100 mg Miscellaneous Information (Pneumonia Protocol Utilized 1 Each Misc) 1 each PO ONCE PRN PRN Reason: Per Protocol Morphine Sulfate (Morphine Sulfate 2 Mg/Ml Syringe) 1 mg IV Q4HR PRN PRN Reason: Severe Pain (Scale 7 to 10) Naloxone HCl (Naloxone 0.4 Mg/Ml 1 Ml Vial) 0.2 mg IV Q2M PRN PRN Reason: Opioid Reversal Nicotine (Nicotine 21mg/24hr Patch) 1 patch TRANSDERM DAILY [facility] Last Admin: 03/05/24 08:15 Dose: 1 patch Nystatin (Nystatin 100,000 Unit/Ml Susp 500,000 Unit/5 Ml Cup) 500,000 unit PO QID [facility]; Protocol Last Admin: 03/05/24 15:27 Dose: 500,000 unit Olanzapine (Olanzapine 10 Mg Tab) 20 mg PO HS [facility] Last Admin: 03/04/24 19:50 Dose: 20 mg Ondansetron HCl (Ondansetron 4 Mg/2 Ml Vial) 4 mg IVP Q8HR PRN PRN Reason: Nausea And Vomiting Pantoprazole Sodium (Pantoprazole 40 Mg Tablet) 40 mg PO 0730 [facility] Last Admin: 03/05/24 06:28 Dose: 40 mg Paroxetine HCl (Paroxetine 10 Mg Tab) 30 mg PO DAILY [facility] Last Admin: 03/05/24 08:16 Dose: 30 mg Tamsulosin HCl (Tamsulosin 0.4 Mg Cap.Er.24h) 0.4 mg PO PC-BRKFST [facility] Last Admin: 03/05/24 08:16 Dose: 0.4 mg Tiotropium Dennison (Tiotropium 2.5 Mcg Inhaler) 2 puff INHALATION RT-DAILY [facility] Last Admin: 03/05/24 08:59 Dose: 2 puff Physical examination: VITAL SIGNS: 98.4, 108, 18, 133 x 91, 92% on 5 L GENERAL: Up in a chair, some shortness of breath EYES: Pupils equal. Conjunctiva normal. HEENT: External appearance of nose and ears normal, oral cavity grossly normal. NECK: JVD is able to assess; masses not palpable. HEART: First and second heart sounds are normal; edema present LUNGS: Respiratory rate increased; decreased breath sounds , coarse breath sounds ABDOMEN: Soft, nontender, liver spleen not palpable, no masses palpable. PSYCH: Absilia x 3, mood affect normal MUSCULOSKELETAL:No Clubbing/cyanosis;muscles-grossly intact. Evidence of OA INVESTIGATIONS, reviewed in the clinical context: March 04: Potassium 4.8 BUN 32 creatinine 1.10 Renal ultrasound: No hydronephrosis. Right kidney 11.1 x 5.5 x 5.3 cm. Left kidney 13 x 6.2 x 5.2 cm. assessment and plan: -[id number] shock from volume depletion: Resolved -No pneumonia Antibiotic discontinued per pulmonary -Acute hypoxic and hypercapnic respiratory failure secondary to COPD exacerbation: Slow to respond On BiPAP.-50%, used for 2 hours overnight. This morning 6 L. -Paroxysmal atrial fibrillation flutter, currently rate around 100 Amiodarone. Eliquis. Lopressor i 100 g twice daily Being followed by cardiology -Acute COPD exacerbation causing hypoxia in a current smoker: Slow to respond DuoNeb. Symbicort. IV Solu-Medrol- 40 mg Q8. -Acute kidney injury likely ATN, and urine retention: Improving Admission creatinine 5.35 -Metabolic acidosis secondary to acute kidney injury. Improved - Chronic congestive heart failure from systolic/diastolic dysfunction EF 45-50%-better -History of cardiac arrest/pulseless electrical activity in January 2023 -Chronic nicotine dependence, cigarette smoker Nicotine patch -BPH with bladder outflow obstruction Shook was placed on presentation.-Discontinued Flomax. Seen by Dr. Gould from urology. . -Hypothyroid Levothyroxine 125 g a day -Essential hypertension . Lopressor -Bipolar disorder Zyprexa 20 mg daily at bedtime. Paxil. Discussed with patient. Continue current medications. Follow-up with consultants
[2024-03-05 16:26] LABS: Glucose,Whole Blood 91 mg/dL (70-110)
[2024-03-05 20:01] LABS: Glucose,Whole Blood 97 mg/dL (70-110)
[2024-03-06 06:19] LABS: Glucose,Whole Blood 119 mg/dL (70-110)
[2024-03-06 09:27] VITALS: BP 123/93; RESP 22; TEMP 97.9
--- NOTE | 2024-03-06 10:36 | P.PN ---
Subjective Patient is seen in follow-up for acute kidney injury. Renal function improved. Shook catheter now removed. Has been voiding on his own. Oral intake is good. No vomiting or diarrhea. No active complaints. Vital signs are stable. General: No acute distress. HEENT: Head exam is unremarkable. On nasal cannula. LUNGS: No audible rhonchi or wheezes. HEART: Rate and Rhythm are regular. ABDOMEN: Nontender. EXTREMITITES: No edema. Objective - Vital Signs Vital signs: Vital Signs Temp 97.9 F 03/06/24 08:50 Pulse 109 H 03/06/24 08:50 Resp 22 03/06/24 08:50 BP 123/93 03/06/24 08:50 Pulse Ox 95 03/06/24 08:50 FiO2 50 03/04/24 21:26 Intake & Output 03/05/24 03/06/24 03/06/24 18:59 06:59 18:59 Intake Total 660 118 Balance 660 118 Intake: Oral 660 118 Other: Voiding Method Toilet Toilet Urinal Urinal # Voids 1 2 - Labs CBC & Chem 7: 03/03/24 09:41 03/04/24 09:18 Labs: Abnormal Lab Results - Last 24 Hours (Table) 03/05/24 03/06/24 Range/Units 11:36 06:17 POC Glucose (mg/dL) 111 H 119 H (70-110) mg/dL Microbiology - Last 24 Hours (Table) 03/02/24 15:25 Legionella Culture - Preliminary Sputum 03/02/24 15:25 Gram Stain - Final Sputum Sputum Culture - Final Alana glabrata Alana sp,not albicans/galbr Assessment and Plan Plan: Assessment: 1. Acute kidney injury secondary to urinary retention with component of ATN. UA benign. No hydronephrosis noted on kidney ultrasound. Renal function improving. Creatinine over 5 on admission - 1.1 dated March 04, 2024. 2. Metabolic acidosis secondary to acute kidney injury. Improved. 3. Benign hypertension. Controlled. 4. Acute hypoxic and hypercapnic respiratory failure. Being treated for acute COPD exacerbation. 5. Paroxysmal A-fib being followed by cardiology. Plan: Encouraged oral intake. Maintain Flomax. Repeat labs in the morning.
[2024-03-06 11:52] LABS: Glucose,Whole Blood 110 mg/dL (70-110)
[2024-03-06 12:28] VITALS: PULSE 98; BMI 32.1
--- NOTE | 2024-03-06 13:57 | P.EN ---
Patient oxygen dropped down to 85% with activity. Will be discharged on 3 L of oxygen.
--- NOTE | 2024-03-06 14:54 | P.PN ---
Subjective Progress Note Date: 03/06/24 Principal diagnosis: Shortness of breath. This is a 69-year-old white male with history of multiple medical problems including COPD, obesity, chronic congestive heart failure, bipolar disorder, hypothyroidism, chronic atrial fibrillation, patient is familiar to my service, I saw him back in January of 2023, patient had at the time in hospital cardiac arrest requiring CPR and subsequent return of spontaneous circulation CPR was as long as 5 minutes. Other medical problems at that time included underlying COPD, hypertension, bilateral pneumonia, hypertension, bipolar disorder, and generalized anxiety disorder patient was actually discharged back then on 01/26/2023, patient had follow-up with cardiology few months later, and he underwent cardiac catheterization where he was found to have minimal coronary artery disease, elevated left-sided filling pressures, ejection fraction was 60 to 65% at that time. Hence the patient was advised mostly medical therapy. On this admission the patient came in as a referral from an outside facility for pneumonia wherein he presented with symptoms of shortness of breath, hypoxia, low blood pressure, abnormal labs with findings of renal failure, patient was evaluated by the ER physician, and he was in significant respiratory distress placed on BiPAP. With IPAP of 14, EPAP of 6, FiO2 of 60%, ABG showed a pO2 of 69 pCO2 62 pH of 7. 1 9, consistent with a picture of metabolic and respiratory acidosis, for his metabolic acidosis I recommended an amp of bicarb, follow-up ABG showed a pO2 of 95 pCO2 48 pH of 7.26, FiO2 was cut down to 50%. Patient is requiring norepinephrine at 0.11 mcg/kg/min he received an amp of bicarb, and antibiotics webb I am recommending Zosyn every 12 hours. Chest x-ray showed a large hiatal hernia with bilateral bibasilar atelectasis, underlying pneumonia is not entirely ruled out. Especially in the left lung base and I did evaluate the patient in the ER, patient had negative screening for influenza A influenza B RSV and COVID-19 I will admit the patient to the ICU for further treatment of his sepsis/septic shock presentation and acute on chronic hypoxic and hypercapnic respiratory failure with severe metabolic respiratory and metabolic acidosis. The patient is seen today March 02, 2024 in follow-up on the in the end emergency department. He is currently sitting up on a stretcher. Awake and alert in no acute distress. He is feeling actually quite back to his baseline compared to yesterday. Very alert and talkative. He is currently off the BiPAP and on 4 L/min per nasal cannula. He is afebrile. Slightly tachycardic. Chest x-ray shows a very large hiatal hernia. Some superimposed airspace disease extending to the left upper lobe. White count 16.3. Hemoglobin 14.1. P latelets 93,000. Sodium 145. Potassium 4.3. Bicarb 25. BUN 42. Creatinine 2.01. Glucose 128. Procalcitonin 0.04. He is continued on DuoNeb ventilations, Symbicort, Areva, Solu-Medrol. Antibiotics in form of Zosyn and doxycycline. Anticoagulated with Eliquis. Progress note dated March 03, 2024. The patient is seen today in room 372. His procalcitonin level was 0.04. His Zosyn and doxycycline can be discontinued. The patient is getting saline at 75 cc an hour. He continues on 6 L of nasal oxygen. The BiPAP device is at the bedside, with settings of 14/6, and 50%. The patient does not appear to be in any distress at this time. Current labs include a white count 15.7, hemoglobin 14.8, hematocrit 47.7, and a platelet count of 92,000. Sodium 146, potassium 4.5, chlorides 118, CO2 26, BUN 35, creatinine 1.29. Glucose is 140. TSH is 0.098. Calcium 9.1, and free T4 is 2.26. Chest x-ray shows a very large hiatal hernia, which is known. In addition, there is some airspace disease, on the left. Progress note dated March 04, 2024. The patient is seen today in room 372. Currently, the patient is on BiPAP, with settings of 14/6 and 50%. The patient is not receiving any IV fluids. Prior to the BiPAP, being placed, the patient was on oxygen by nasal cannula at 6 L. He is sitting up in a chair. Shook catheter in place. He appears relatively comfortable. Current laboratory data includes a sodium 145, potassium 4.8, chlorides 115, CO2 26, BUN 32, creatinine 1.10. Glucose is 116. Calcium 9.1 and magnesium is 2.1. Culture data is currently negative or pending. No recent chest x-ray. Progress note dated March 05, 2024. The patient was seen in room 372. He is sitting in a chair next to his bed. He is currently on 5 L nasal cannula. He is not receiving any IV fluids. He did use BiPAP last night for a couple of hours. Settings include 14/6, and 50%. Current labs include only a glucose of 111. Sputum revealed Alana. No recent chest x-rays to report. Progress note dated March 06, 2024. The patient was seen today in room 372. Currently, the patient is on nasal O2 at 5 L. He is not receiving any IV fluids. The patient is hoping to be disc harged home soon. In that regard, we convert his Solu-Medrol, to prednisone, 40 mg a day. It can be tapered over 12 to 16 days. The patient states that his breathing is much improved. Current labs include a glucose of 110. Sputum cultures are showing evidence of Alana and no chest x-ray was done recently. Objective - Vital Signs Vital signs: Vital Signs Temp 97.9 F 03/06/24 08:50 Pulse 98 03/06/24 11:56 Resp 22 03/06/24 08:50 BP 123/93 03/06/24 08:50 Pulse Ox 95 03/06/24 12:00 FiO2 50 03/04/24 21:26 Intake & Output 03/05/24 03/06/24 03/06/24 18:59 06:59 18:59 Intake Total 660 118 Balance 660 118 Weight 113.398 kg Intake: Oral 660 118 Other: Voiding Method Toilet Toilet Urinal Urinal # Voids 1 2 - Exam No acute distress, currently on nasal O2 at 5 L. HEENT examination is grossly unremarkable. Neck supple. Full range of motion. No adenopathy thyromegaly or neck vein distention. Cardiovascular examination reveals regular rhythm rate. S1-S2 normal. No S3 or S4. No discernible murmur noted. Heart sounds are distant. Heart rate 90 bpm. Lungs reveal scattered bilateral rhonchi. No wheezes. Minimal crackles. Saturations are 95 % on 5 L nasal cannula. Abdomen soft bowel sounds are heard. No masses or tenderness. Extremities are intact. No cyanosis clubbing or edema. Skin is without rash or lesion. Neurologic examination is brief but nonfocal. - Labs CBC & Chem 7: 04/22/24 09:41 03/04/24 09:18 Labs: Abnormal Lab Results - Last 24 Hours (Table) 03/06/24 Range/Units 06:17 POC Glucose (mg/dL) 119 H (70-110) mg/dL Microbiology - Last 24 Hours (Table) 03/02/24 15:25 Legionella Culture - Preliminary Sputum 03/02/24 15:25 Gram Stain - Final Sputum Sputum Culture - Final Alana glabrata Alana sp,not albicans/galbr Assessment and Plan Assessment: Acute hypoxic and hypercapnic respiratory failure, secondary to an acute exacerbation of chronic obstructive pulmonary disease. Acute on chronic kidney injury, possible ATN. Acute exacerbation of COPD. Large hiatal hernia. Acute respiratory and acute metabolic acidosis secondary to his pulmonary status and secondary to renal status. History of chronic atrial fibrillation. History of diastolic congestive heart failure and previous cardiac arrest/pulseless electrical activity back in January of 2023. Plan: Plan dated March 03, 2024. The patient is seen today in room 372. The patient is currently on 6 L of oxygen. His antibiotics can be discontinued, as the patient's procalcitonin level was 0.04. The patient continues on saline at 75 cc an hour. The patient will continue on bronchodilators and steroids. We will continue to follow make recommendations along the way. Labs, x-rays, medications are reviewed. The patient's overall prognosis remains guarded. Plan dated March 04, 2024. The patient is seen today in room 372. The patient is currently on BiPAP, with settings of 14/6, and 50%. He is not receiving any IV fluids. Prior to being placed on BiPAP, the patient was on 6 L by nasal cannula. Labs, x-rays, medications are reviewed. The patient is sitting in the chair next to his hospital bed. The patient does not appear to have any ranjana respiratory difficulty or distress. We will continue to follow make recommendations along the way. Prognosis is certainly guarded. Plan dated March 05, 2024. The patient appears to be doing relatively well. He is seen in room 372. He is sitting in the chair next to his hospital bed. He is on 5 L nasal cannula. He is not manifesting any signs or symptoms of respiratory difficulty or distress. He is not receiving any IV fluids. He did use BiPAP last night, for about 2 hours, with settings of 14/6 and 50%. Labs, x-rays, medications are reviewed. We will continue to follow the patient, make recommendations along the way. Plan dated March 06, 2024. The patient is seen today in room 372. He is sitting in a chair next to his hospital bed. He is on O2 at 5 L. Nurses are attempting to wean his FiO2 down. Clinically, the patient is stable, could be considered for possible discharge. The patient should be discharged home on prednisone, with a slow taper over about 15 days or so. Labs, x-rays, and medications are reviewed. The patient's overall prognosis remains guarded. We will continue to follow make recommendations along the way. When not using nasal O2, the patient has been on BiPAP, with settings of 14/6, and 50%. Time with Patient: Less than 30
--- NOTE | 2024-03-06 15:26 | P.DS ---
Providers Date of admission: 03/01/24 04:58 Expected date of discharge: 03/06/24 Attending physician: Олег Sanon Consults: 03/01/24 04:58 Consult Physician Routine Consulting Provider: Tyler Bass Consult Reason/Comments: ARF Do you want consulting provider notified?: Yes Consult Physician Routine Consulting Provider: Rainer Bazzi Consult Reason/Comments: icu Do you want consulting provider notified?: Yes 03/01/24 09:11 Consult Physician Routine Consulting Provider: Tisha Skaggs Consult Reason/Comments: severe sepsis pneumonia Do you want consulting provider notified?: Yes 03/03/24 10:08 Consult Physician Routine Consulting Provider: Emil Gould Consult Reason/Comments: urinary retention Do you want consulting provider notified?: Yes Primary care physician: Josue Villela Hospital Course: Hospital course: * 69-year-old patient with past medical history significant for COPD, congestive heart failure, history of bipolar disorder, hypothyroid, hyperlipidemia, atrial fibrillation previous history of PEA cardiac arrest in 2022presents to the emergency department secondary to altered mental status, respiratory distress low blood pressure and hypoxia. Patient was accepted as a crossover from an outside hospital for renal failure pneumonia respiratory failure and septic shock. * workup initiated in ER included CBC which were WBC of 12.6 hemoglobin 15.7 platelet count of 93, INR of 1.3 * Blood gas obtained showed pH of 7.19 pCO2 62 * serum chemistry obtained showed creatinine of 5.35 previous creatinine of 1.39. serum chemistry obtained showed sodium 138 potassium 4.6 carbon dioxide 19 BU and 60. Blood glucose 126. Albumin of 3.4 * 03/02/24: Patient seen and evaluated bedside patient remains admitted ER room 4 waiting for bed in medical ICU. Seen by clipping marker in ED, patient weaned off Levophed, follow-up blood work ordered. Blood pressure has improved, patient to go to general medical floor/stepdown unit, mentation has improved alert and oriented x 4. Weaned off BiPAP on nasal cannula March 03: I assumed care of the patient today. On a BiPAP. Setting of 14/6/50%. Coughing up some bloody sputum. Cough is present. Did not eat [place] to eat a good lunch. Wants to sit up in a chair. March 04: Patient overnight was on BiPAP. At 50%. Morning switched over to 6 L. Oral intake good. Intermittent cough. Will give a trial of DC Shook. Remains in atrial fibrillation. Lopressor was increased to 75 mg twice daily yesterday. Increased to her milligram twice daily today. Up in a chair. Add incentive spirometry March 05: Patient used BiPAP for about couple of hours last night. Remains on 6 L nasal cannula. Sitting up in a chair eating lunch. Heart rate is around 100. Remains on IV Solu-Medrol. Patient reminded to do incentive spirometry every 10 minutes. March 06: Oxygen requirement did come down to 3 L. On ambulation patient did drop down to 86%. Suspect patient underlying acute on chronic hypoxia. Discharged on prednisone taper. Cleared by pulmonary. Discussion and discharge planning more than 35 minutes Physical examination: VITAL SIGNS: 97.9, 98, 22, 123.83, 95% on 3 L GENERAL: Up in a chair, breathing much better EYES: Pupils equal. Conjunctiva normal. HEENT: External appearance of nose and ears normal, oral cavity grossly normal. NECK: JVD is able to assess; masses not palpable. HEART: First and second heart sounds are normal; edema present LUNGS: Respiratory rate increased; decreased breath sounds , coarse breath sounds ABDOMEN: Soft, nontender, liver spleen not palpable, no masses palpable. PSYCH: Alert oriented x 3 mood affect normal MUSCULOSKELETAL:No Clubbing/cyanosis;muscles-grossly intact. Evidence of OA INVESTIGATIONS, reviewed in the clinical context: March 04: Potassium 4.8 BUN 32 creatinine 1.10 Renal ultrasound: No hydronephrosis. Right kidney 11.1 x 5.5 x 5.3 cm. Left kidney 13 x 6.2 x 5.2 cm. assessment and plan: -[id number] shock from volume depletion: Resolved -No pneumonia Antibiotic discontinued per pulmonary -Acute hypoxic and hypercapnic respiratory failure secondary to COPD exacerbation: Much improved On BiPAP.-50%, used for 2 hours overnight. Down to 3 L -Suspect underlying chronic hypoxic respiratory failure secondary to COPD -Paroxysmal atrial fibrillation flutter, currently rate around 100 Amiodarone. Eliquis. Lopressor i 100 g twice daily Being followed by cardiology -Acute COPD exacerbation causing hypoxia in a current smoker: Better DuoNeb. Symbicort. IV Solu-Medrol- 40 mg Q8. Discharged on prednisone taper -Acute kidney injury likely ATN, and urine retention: Resolved Admission creatinine 5.35 -Metabolic acidosis secondary to acute kidney injury. Improved - Chronic congestive heart failure from systolic/diastolic dysfunction EF 45-50%-better -History of cardiac arrest/pulseless electrical activity in January 2023 -Chronic nicotine dependence, cigarette smoker Nicotine patch -BPH with bladder outflow obstruction Shook was placed on presentation.-Discontinued Flomax. Seen by Dr. Gould from urology. . -Hypothyroid Levothyroxine 125 g a day -Essential hypertension . Lopressor -Bipolar disorder Zyprexa 20 mg daily at bedtime. Paxil. Disposition Home Plan - Discharge Summary Discharge Rx Participant: No New Discharge Prescriptions: New Nicotine 21Mg/24Hr Patch [Habitrol] 1 patch TRANSDERM DAILY #30 patch Metoprolol Tartrate [Lopressor] 100 mg PO BID #60 tablet Tamsulosin [Flomax] 0.4 mg PO PC-BRKFST #30 cap predniSONE 10 mg PO DAILY #30 tab Continue Levothyroxine Sodium 125 mcg PO DAILY Latanoprost/Pf [Latanoprost 0.005% Eye Drop] 1 drop LEFT EYE HS Loratadine [Claritin] 10 mg PO DAILY Aspirin EC [Ecotrin Low Dose] 81 mg PO DAILY Apixaban [Eliquis] 5 mg PO BID Fluticasone/Vilanterol [Breo Ellipta 200-25 Mcg Inhaler] 1 puff INHALATION RT-DAILY Tiotropium [place] [Spiriva Handihaler] 1 cap INHALATION RT-DAILY Sennosides [Senokot] 8.6 mg PO BID PARoxetine HCL [Paxil] 30 mg PO DAILY Budesonide/Formoterol Fumarate [Symbicort 160-4.5 Mcg Inhaler] 2 puff INHALATION RT-BID Albuterol Nebulized [Ventolin Nebulized] 2.5 mg INHALATION RT-Q6H Albuterol Sulfate [Albuterol Sulfate Hfa] 1 puff INHALATION RT-Q4H PRN PRN Reason: Wheezing Pantoprazole Sodium [Protonix] 40 mg PO DAILY OLANZapine [ZyPREXA] 20 mg PO HS Acetaminophen Tab [Tylenol] 650 mg PO Q4HR PRN tab PRN Reason: Mild Pain Or Fever > 100.5 Gabapentin [Neurontin] 100 mg PO TID Amiodarone [Cordarone] 100 mg PO DAILY Discontinued Midodrine [ProAmatine] 5 mg PO AC-TID tab lisinopriL [Zestril] 2.5 mg PO BID tab Metoprolol Tartrate [Lopressor] 50 mg PO BID tab Furosemide [Lasix] 40 mg PO DAILY #0 Minocycline [Minocin] 50 mg PO BID Discharge Medication List Latanoprost/Pf [Latanoprost 0.005% Eye Drop] 1 drop LEFT EYE HS 08/18/20 [History] Levothyroxine Sodium 125 mcg PO DAILY 08/18/20 [History] Albuterol Sulfate [Albuterol Sulfate Hfa] 1 puff INHALATION RT-Q4H PRN 04/01/22 [History] Apixaban [Eliquis] 5 mg PO BID 04/01/22 [History] Aspirin EC [Ecotrin Low Dose] 81 mg PO DAILY 04/01/22 [History] Loratadine [Claritin] 10 mg PO DAILY 04/01/22 [History] Fluticasone/Vilanterol [Breo Ellipta 200-25 Mcg Inhaler] 1 puff INHALATION RT- DAILY 01/11/23 [History] OLANZapine [ZyPREXA] 20 mg PO HS 01/11/23 [History] Pantoprazole Sodium [Protonix] 40 mg PO DAILY 01/11/23 [History] Tiotropium [place] [Spiriva Handihaler] 1 cap INHALATION RT-DAILY 01/11/23 [History] Acetaminophen Tab [Tylenol] 650 mg PO Q4HR PRN tab 01/26/23 [Rx] Albuterol Nebulized [Ventolin Nebulized] 2.5 mg INHALATION RT-Q6H 03/01/24 [History] Amiodarone [Cordarone] 100 mg PO DAILY 03/01/24 [History] Budesonide/Formoterol Fumarate [Symbicort 160-4.5 Mcg Inhaler] 2 puff INHALATION RT-BID 03/01/24 [History] Gabapentin [Neurontin] 100 mg PO TID 03/01/24 [History] PARoxetine HCL [Paxil] 30 mg PO DAILY 03/01/24 [History] Sennosides [Senokot] 8.6 mg PO BID 03/01/24 [History] Metoprolol Tartrate [Lopressor] 100 mg PO BID #60 tablet 03/06/24 [Rx] Nicotine 21Mg/24Hr Patch [Habitrol] 1 patch TRANSDERM DAILY #30 patch 03/06/24 [Rx] Tamsulosin [Flomax] 0.4 mg PO PC-BRKFST #30 cap 03/06/24 [Rx] predniSONE 10 mg PO DAILY #30 tab 03/06/24 [Rx] Follow up Appointment(s)/Referral(s): Rainer Bazzi MD [STAFF PHYSICIAN] - 03/13/24 9:00 am Josue Villela MD [Primary Care Provider] - 1-2 days Patient Instructions/Handouts: Using Oxygen at Home (DC), COPD (Chronic Obstructive Pulmonary Disease) (DC)
--- NOTE | 2024-03-06 15:51 | P.PN ---
Subjective Progress Note Date: 03/06/24 Principal diagnosis: Reason for follow-up is pneumonia Patient is a 69-year-old male with a past medical history significant for hypertension hyperlipidemia COPD atrial fibrillation hypothyroidism, cardiac arrest January 2023, patient presented to hospital for evaluation of increasing shortness of breath patient noticed to be hypoxic requiring BiPAP chest x-ray new consolidation left lung concerning for pneumonia. On today's evaluation that is 03/06/2024,the patient remains to be afebrile, patient is down to 3 L supplemental oxygen and denies any shortness of breath no chest pain denies significant cough.Patient denies having any nausea or vomiting, no abdominal pain and no diarrhea has been reported, feeling better wants to go home. No new labs were obtained today sputum with Alana Objective - Vital Signs Vital signs: Vital Signs Temp 97.9 F 03/06/24 08:50 Pulse 98 03/06/24 11:56 Resp 22 03/06/24 08:50 BP 123/93 03/06/24 08:50 Pulse Ox 95 03/06/24 12:00 FiO2 50 03/04/24 21:26 Intake & Output 03/05/24 03/06/24 03/06/24 18:59 06:59 18:59 Intake Total 660 118 Balance 660 118 Weight 113.398 kg Intake: Oral 660 118 Other: Voiding Method Toilet Toilet Urinal Urinal # Voids 1 2 - Exam GENERAL DESCRIPTION: An elderly male lying in bed in no distress RESPIRATORY SYSTEM: Unlabored breathing , decreased breath sounds at bases HEART: S1 S2 regular rate and rhythm , ABDOMEN: Soft , no tenderness EXTREMITIES: No edema feet - Labs CBC & Chem 7: 03/03/24 09:41 03/04/24 09:18 Labs: Abnormal Lab Results - Last 24 Hours (Table) 03/06/24 Range/Units 06:17 POC Glucose (mg/dL) 119 H (70-110) mg/dL Microbiology - Last 24 Hours (Table) 03/02/24 15:25 Legionella Culture - Preliminary Sputum Assessment and Plan (1) Hypoxia Status: Acute Code(s): R09.02 - HYPOXEMIA SNOMED Code(s): 184711516 (2) Pneumonia Status: Acute Code(s): J18.9 - PNEUMONIA, UNSPECIFIED ORGANISM SNOMED Code(s): 049206081 Plan: 1patient presented to hospital with acute respiratory failure in this patient who is currently hypoxic on BiPAP patient did have a left-sided infiltrate on chest x-ray elevated white count concerning for pneumonia with initial concern for possible gram-negative pneumonia 2- sputum culture has been obtained and currently growing Alana glabrata, procalcitonin level is normal, MRSA nasal screen was negative 3-patient positive sputum cultures most likely colonization/possible oropharyngeal candidiasis we will recommend a 7-day course of nystatin swish and swallow on discharge and no need for antibiotics Dictation was produced using [employer] dictation software. please excuse any grammatical, word or spelling errors. Time with Patient: Less than 30
[2024-03-07] MEDS ORDERED: predniSONE 20 MG TAB PO SCH (09:00)
== END 2024-03-06 15:37 | disposition home or self-care (01) | DRG 871 ==
LOC: EC 02:00 → 2SICU 04:58 → 3SCARD 03-02 10:19
PROVIDERS: ADMIT Hospitalist; ATTEND Hospitalist
PROC: 5A09457 Assistance with Respiratory Ventilation, 24-96 Consecutive Hours, Continuous Positive Airway Pressure (ICD-10-PCS; principal; 2024-03-01)
DX: A41.9 Sepsis, unspecified organism (principal); J18.9 Pneumonia, unspecified organism; J96.01 Acute respiratory failure with hypoxia; J96.02 Acute respiratory failure with hypercapnia; N17.0 Acute kidney failure with tubular necrosis; R65.21 Severe sepsis with septic shock; J69.0 Pneumonitis due to inhalation of food and vomit; E87.21 Acute metabolic acidosis; F05 Delirium due to known physiological condition; I48.20 Chronic atrial fibrillation, unspecified; I50.42 Chronic combined systolic (congestive) and diastolic (congestive) heart failure; J44.1 Chronic obstructive pulmonary disease with (acute) exacerbation; J98.11 Atelectasis; I48.92 Unspecified atrial flutter; J44.0 Chronic obstructive pulmonary disease with (acute) lower respiratory infection; D69.6 Thrombocytopenia, unspecified; F31.9 Bipolar disorder, unspecified; F41.0 Panic disorder [episodic paroxysmal anxiety]; I11.0 Hypertensive heart disease with heart failure; N32.0 Bladder-neck obstruction; I48.0 Paroxysmal atrial fibrillation; I08.1 Rheumatic disorders of both mitral and tricuspid valves; E86.9 Volume depletion, unspecified; K44.9 Diaphragmatic hernia without obstruction or gangrene; N40.1 Benign prostatic hyperplasia with lower urinary tract symptoms; R33.8 Other retention of urine; E03.9 Hypothyroidism, unspecified; Z79.890 Hormone replacement therapy; E78.5 Hyperlipidemia, unspecified; Z71.6 Tobacco abuse counseling; Z79.01 Long term (current) use of anticoagulants; Z79.51 Long term (current) use of inhaled steroids; Z79.82 Long term (current) use of aspirin; Z79.899 Other long term (current) drug therapy; Z82.49 Family history of ischemic heart disease and other diseases of the circulatory system; Z86.74 Personal history of sudden cardiac arrest; Z87.19 Personal history of other diseases of the digestive system; Z98.42 Cataract extraction status, left eye; Z98.41 Cataract extraction status, right eye
CPT/HCPCS: 36415; 36600; 51702; 71045; 76770; 80048; 80053; 81003; 82805; 83605; 83735; 83880; 84100; 84145; 84439; 84443; 84484; 85025; 85027; 85610; 85730; 86140; 87070; 87205; 87449; 87636; 93005; 93306; 94640; 94660; 94760; 96361; 96365; 96366; 96367; 96368; 96375; 96376; 99291

== ENCOUNTER 2024-03-14 19:29 | Observation (INO) | payer MEDICARE, OTHER ==
--- NOTE | 2024-03-14 20:01 | ED ---
General Adult HPI - General Chief complaint: Shortness of Breath Stated complaint: COPD, CHF Time Seen by Provider: 03/14/24 19:30 Source: patient, RN/MD, EMS, RN notes reviewed, old records reviewed Mode of arrival: EMS Limitations: no limitations - History of Present Illness Initial comments: Patient is a 69-year-old male presenting to the emergency department as a transfer from [facility] with difficulty breathing. Patient has leg swelling as well. Patient does have history of similar symptoms previously associated with COPD and CHF. Patient was recently admitted for pneumonia. Patient was seen at [facility] and transferred for CHF. Patient does see cardiology Dr. Jasso from our institution - Related Data Home Medications Medication Instructions Recorded Confirmed Latanoprost/Pf [Latanoprost 0.005% 1 drop LEFT EYE HS 08/18/20 03/01/24 Eye Drop] Levothyroxine Sodium 125 mcg PO DAILY 08/18/20 03/01/24 Albuterol Sulfate [Albuterol 1 puff INHALATION RT-Q4H PRN 04/01/22 03/01/24 Sulfate Hfa] Apixaban [Eliquis] 5 mg PO BID 04/01/22 03/01/24 Aspirin EC [Ecotrin Low Dose] 81 mg PO DAILY 04/01/22 03/01/24 Loratadine [Claritin] 10 mg PO DAILY 04/01/22 03/01/24 Fluticasone/Vilanterol [Breo 1 puff INHALATION RT-DAILY 01/11/23 03/01/24 Ellipta 200-25 Mcg Inhaler] OLANZapine [ZyPREXA] 20 mg PO HS 01/11/23 03/01/24 Pantoprazole Sodium [Protonix] 40 mg PO DAILY 01/11/23 03/01/24 Tiotropium [place] [Spiriva 1 cap INHALATION RT-DAILY 01/11/23 03/01/24 Handihaler] Albuterol Nebulized [Ventolin 2.5 mg INHALATION RT-Q6H 03/01/24 03/01/24 Nebulized] Amiodarone [Cordarone] 100 mg PO DAILY 03/01/24 03/01/24 Budesonide/Formoterol Fumarate 2 puff INHALATION RT-BID 03/01/24 03/01/24 [Symbicort 160-4.5 Mcg Inhaler] Gabapentin [Neurontin] 100 mg PO TID 03/01/24 03/01/24 PARoxetine HCL [Paxil] 30 mg PO DAILY 03/01/24 03/01/24 Sennosides [Senokot] 8.6 mg PO BID 03/01/24 03/01/24 Previous Rx's Medication Instructions Recorded Acetaminophen Tab [Tylenol] 650 mg PO Q4HR PRN tab 01/26/23 Metoprolol Tartrate [Lopressor] 100 mg PO BID #60 tablet 03/06/24 Nicotine 21Mg/24Hr Patch [Habitrol] 1 patch TRANSDERM DAILY #30 patch 03/06/24 Tamsulosin [Flomax] 0.4 mg PO PC-BRKFST #30 cap 03/06/24 predniSONE 10 mg PO DAILY #30 tab 03/06/24 Allergies Allergy/AdvReac Type Severity Reaction Status Date / Time No Known Allergies Allergy Verified 03/14/24 19:38 Review of Systems ROS Statement: Those systems with pertinent positive or pertinent negative responses have been documented in the HPI. ROS Other: All systems not noted in ROS Statement are negative. Constitutional: Denies: fever Eyes: Denies: eye pain ENT: Denies: ear pain Respiratory: Reports: as per HPI, dyspnea Cardiovascular: Reports: edema. Denies: chest pain Endocrine: Denies: fatigue Gastrointestinal: Denies: abdominal pain Past Medical History Past Medical History: Atrial Fibrillation, COPD, Eye Disorder, Hyperlipidemia, Hypertension, Osteoarthritis (OA), Thyroid Disorder Additional Past Medical History / Comment(s): Sober 1978, hiatal hernia, glaucoma left eye, possible stroke behind left eye per opthamologist. 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 History of Any Multi-Drug Resistant Organisms: None Reported Past Surgical History: Heart Catheterization Additional Past Surgical History / Comment(s): HYDROCELE surg. x2, hemorrhoidectomy, colonoscopy, cataract surgery tamara eyes Past Anesthesia/Blood Transfusion Reactions: No Reported Reaction Additional Past Anesthesia/Blood Transfusion Reaction / Comment(s): no blood transfusions Past Psychological History: Anxiety, Bipolar, Panic Disorder Smoking Status: Current every day smoker Past Alcohol Use History: None Reported Past Drug Use History: Marijuana - Past Family History Mother Family Medical History: Diabetes Mellitus Father Family Medical History: Coronary Artery Disease (CAD) Sister(s) Family Medical History: Coronary Artery Disease (CAD), Diabetes Mellitus, Hypertension General Exam Limitations: no limitations General appearance: alert, in no apparent distress Head exam: Present: normocephalic Eye exam: Present: normal appearance Neck exam: Present: normal inspection Respiratory exam: Present: wheezes, rales Cardiovascular Exam: Present: regular rate, irregular rhythm GI/Abdominal exam: Present: soft. Absent: tenderness Extremities exam: Present: pedal edema. Absent: calf tenderness Back exam: Present: normal inspection Neurological exam: Present: alert Psychiatric exam: Present: normal affect, normal mood Skin exam: Present: normal color Course Vital Signs 03/14/24 19:35 Temperature 97.2 F L Pulse Rate 100 Respiratory 18 Rate Blood Pressure 116/52 O2 Sat by Pulse 94 L Oximetry EKG Findings - EKG Results: EKG: interpreted by RODRIGUEZ (Poor R wave progression. Superior axis.), normal ST/T EKG shows: atrial fibrillation Medical Decision Making - Medical Decision Making Was pt. sent in by a medical professional or institution (, PA, SUPERVISOR BEET END, urgent care, hospital, or care home...) When possible be specific @ -Patient was sent from [facility] Did you speak to anyone other than the patient for history (EMS, parent, family, police, friend...)? What history was obtained from this source @ -I did speak with Dr. Douglas, transferring physician Did you review nursing and triage notes (agree or disagree)? Why? @ -I reviewed and agree with nursing and triage notes Were old charts reviewed (outside hosp., previous admission, EMS record, old EKG, old radiological studies, urgent care reports/EKG's, care home records)? Report findings @ -Chart reviewed from [facility] Differential Diagnosis (chest pain, altered mental status, abdominal pain women, abdominal pain men, vaginal bleeding, weakness, fever, dyspnea, syncope, headache, dizziness, GI bleed, back pain, seizure, CVA, palpatations, mental health, musculoskeletal)? @ -Differential Dyspnea: Coronary syndrome, arrhythmia, tamponade, asthma, COPD, pulmonary embolism, pneumonia, pneumothorax, pulmonary effusion, anaphylaxis, diabetic ketoacidosis, flailed chest, pulmonary contusion, diaphragmatic rupture, anemia, neuromuscular, this is not meant to be an all-inclusive list. EKG interpreted by me (3pts min.). @ -As above X-rays interpreted by me (1pt min.). @ -None done CT interpreted by me (1pt min.). @ -None done U/S interpreted by me (1pt. min.). @ -None done What testing was considered but not performed or refused? (CT, X-rays, U/S, labs)? Why? @ -None What meds were considered but not given or refused? Why? @ -None Did you discuss the management of the patient with other professionals (professionals i.e. , PA, SUPERVISOR BEET END, lab, RT, psych nurse, social media editor, break off worker, teacher, boat officer, case management coordinator)? Give summary @ -Case discussed with practitioner Morena who will admit covering Dr. Sanon, who admits for Dr. Villela Was smoking cessation discussed for >3mins.? @ -No Was critical care preformed (if so, how long)? @ -No Were there social determinants of health that impacted care today? How? (Homelessness, low income, unemployed, alcoholism, drug addiction, transportation, low edu. Level, literacy, decrease access to med. care, senior living, rehab)? @ -No Was there de-escalation of care discussed even if they declined (Discuss DNR or withdrawal of care, Hospice)? DNR status @ -No What co-morbidities impacted this encounter? (DM, HTN, Smoking, COPD, CAD, Cancer, CVA, ARF, Chemo, Hep., AIDS, mental health diagnosis, sleep apnea, morbid obesity)? @ -None Was patient admitted / discharged? Hospital course, mention meds given and route, prescriptions, significant lab abnormalities, going to OR and other pertinent info. @ -Patient presents as transfer from [facility] for difficulty breathing. Labs and x-ray concerning for CHF. Patient also has underlying COPD. Patient will be admitted. Admission orders written Undiagnosed new problem with uncertain prognosis? @ -No Drug Therapy requiring intensive monitoring for toxicity (Heparin, Nitro, Insulin, Cardizem)? @ -No Were any procedures done? @ -No Diagnosis/symptom? @ -CHF, COPD Acute, or Chronic, or Acute on Chronic? @ -Acute on chronic, acute on chronic Uncomplicated (without systemic symptoms) or Complicated (systemic symptoms)? @ -Default Side effects of treatment? @ -No Exacerbation, Progression, or Severe Exacerbation? @ -Exacerbation Poses a threat to life or bodily function? How? (Chest pain, [place], [place], pneumonia, PE, COPD, DKA, ARF, appy, cholecystitis, CVA, Diverticulitis, Homicidal, Suicidal, threat to staff... and all critical care pts) @ -No Disposition Clinical Impression: CHF (congestive heart failure), COPD with exacerbation Disposition: ADMITTED IP TO THIS HOSP Is patient prescribed a controlled substance at d/c from ED?: No Referrals: Josue Villela MD [Primary Care Provider] - 1-2 days Time of Disposition: 20:03
[2024-03-14] MEDS ORDERED: NALOXONE 0.4 MG/ML 1 ML VIAL IVP PRN (20:03)
[2024-03-14] MEDS ORDERED: ACETAMINOPHEN TAB 325 MG TAB PO PRN (20:22)
[2024-03-14] MEDS: IPRATROPIUM-ALBUTEROL 3 ML NEB INHALATION PRN (20:45)
[2024-03-14] MEDS: SENNOSIDES 8.6 MG TAB PO SCH (21:19)
[2024-03-14] MEDS: OLANZapine 10 MG TAB PO SCH (21:20)
[2024-03-14] MEDS: GABAPENTIN 100 MG CAP PO SCH (21:21)
[2024-03-14] MEDS: APIXABAN 5 MG TAB PO SCH (21:21)
[2024-03-14] MEDS: ASPIRIN 325 MG TAB PO STA (21:22)
[2024-03-14] MEDS: FUROSEMIDE 10 MG/ML 4 ML VIAL IV SCH (21:24)
[2024-03-14] MEDS: methylPREDNISolone SOD SUCCI 125 MG/2 ML VIAL IV SCH (21:25)
[2024-03-14] MEDS: NITROGLYCERIN OINT 1 INCH/GM PACKET TOPICAL SCH (21:25)
[2024-03-14] MEDS: METOPROLOL TARTRATE 50 MG TAB PO SCH (22:20)
[2024-03-14] MEDS: guaiFENesin 600 MG TABLET.ER PO PRN (23:33)
[2024-03-14] MEDS: LATANOPROST 0.005% OPHTH DROPS 2.5 ML BTL LEFT EYE SCH (23:33)
[2024-03-15] MEDS ORDERED: SYMBICORT 160-4.5 MCG INHALER INHALATION SCH (08:00)
[2024-03-15] MEDS ORDERED: TIOTROPIUM 2.5 MCG INHALER INHALATION SCH (08:00)
[2024-03-15] MEDS: ASPIRIN 81 MG PO SCH (08:48)
[2024-03-15] MEDS: NICOTINE 21MG/24HR PATCH TRANSDERM SCH (08:48)
[2024-03-15] MEDS: LORATADINE 10 MG TAB PO SCH (08:48)
[2024-03-15] MEDS: PANTOPRAZOLE 40 MG TABLET PO SCH (08:48)
[2024-03-15] MEDS: TAMSULOSIN 0.4 MG CAP.ER.24H PO SCH (08:48)
[2024-03-15] MEDS: PARoxetine 10 MG TAB PO SCH (08:49)
[2024-03-15] MEDS: LEVOTHYROXINE 125 MCG TAB PO SCH (08:49)
[2024-03-15] MEDS: AMIODARONE 100 MG TAB PO SCH (08:49)
[2024-03-15] MEDS ORDERED: ASPIRIN 325 MG TAB PO SCH (09:00)
[2024-03-15] MEDS: IPRATROPIUM-ALBUTEROL 3 ML NEB INHALATION SCH (09:14)
[2024-03-15] MEDS: SYMBICORT 160-4.5 MCG INHALER INHALATION SCH (09:14)
[2024-03-15 11:10] LABS: Basophils # (A) 0.1 k/uL (0-0.2); Basophils % (A) 0 %; Eosinophils # (A) 0.1 k/uL (0-0.7); Eosinophils % (A) 0 %; HCT 45.2 % (39.0-53.0); HGB 14.2 gm/dL (13.0-17.5); Lymphocytes # (A) 1.1 k/uL (1.0-4.8); Lymphocytes % (A) 4 %; MCH 30.7 pg (25.0-35.0); MCHC 31.4 g/dL (31.0-37.0); MCV 97.7 fL (80.0-100.0); Mean Platelet Volume 11.2; Monocytes # (A) 0.6 k/uL (0-1.0); Monocytes % (A) 2 %; Neutrophils # (A) 22.7 k/uL (1.3-7.7); Neutrophils % (A) 93 %; Platelet Count 129 k/uL (150-450); RBC 4.62 m/uL (4.30-5.90); RDW 13.8 % (11.5-15.5); WBC 24.6 k/uL (3.8-10.6)
[2024-03-15 11:28] LABS: ALT 35 U/L (4-49); AST 20 U/L (17-59); African American GFR (CKD) 72 (>60 ml/min/1.73 sqM); Albumin 2.8 g/dL (3.5-5.0); Albumin/Globulin Ratio 1.2; Alkaline Phosphatase 71 U/L (38-126); Anion Gap 3 mmol/L; Blood Urea Nitrogen 37 mg/dL (9-20); Calcium 8.3 mg/dL (8.4-10.2); Carbon Dioxide 36 mmol/L (22-30); Chloride 104 mmol/L (98-107); Globulin 2.4 g/dL; Glucose 140 mg/dL (74-99); Non-African American GFR(CKD) 62 (>60 ml/min/1.73 sqM); Potassium 3.9 mmol/L (3.5-5.1); Sodium 143 mmol/L (137-145); Total Bilirubin 0.6 mg/dL (0.2-1.3); Total Protein 5.2 g/dL (6.3-8.2)
[2024-03-15] MEDS: TIOTROPIUM 2.5 MCG INHALER INHALATION SCH (12:43)
--- NOTE | 2024-03-15 12:44 | P.CRDCN ---
History of Present Illness Consult date: 03/15/24 Requesting physician: Alfonso Villegas Reason for Consult (text): CHF Chief complaint: lower extremity edema History of present illness: This is a pleasant 69-year-old gentleman who follows in the office with Dr. Jasso. He has a past medical history of paroxysmal atrial fibrillation, curr ently persistent, [facility] guided cardioversion x 2 in the past with discussion of referral to Dr. Hart for possible ablation however patient has had difficulty with transportation to make it to appointments, hyperlipidemia, mildly reduced EF of 40-45% with recovered EF, COPD, history of in-hospital cardiac arrest requiring CPR for 5 minutes with return of spontaneous circulation, significant hiatal hernia with near complete stomach in the thoracic cavity, AVNRT. He is a current every day smoker, has reduced his intake to 2 cigarettes a day. Was recently admitted to the hospital with pneumonia and discharged for 5 days ago. Since discharge she has felt felt his breathing has improved. He has no orthopnea or PND. He presented initially to [facility] in [place] at the advice of his sister due to worsening edema in the lower extremities. At that time chest x-ray showed possible CHF and possible left lower lobe infiltrate. White blood cell count was 17,400. NT proBNP came back at 404 which was previously 721 on last admission. Echocardiogram during previous admission revealed preserved LV systolic function. He was discharged home last admission on oxygen and overall has been feeling that his breathing is gradually improving. He has been quite an active and consuming quite a lot of sodium since discharge. He has noticed worsening edema more in the right than the le ft. Presentation to the emergency department he has noticed an improvement with resolution of the edema in the left lower extremity and improvement in the right. He continues to be in atrial fibrillation with suboptimally controlled ventricular response with heart rate running in the low 100s. He is currently on amiodarone 100 mg daily and metoprolol tartrate 100 mg p.o. twice daily. He is anticoagulated on Eliquis. His blood pressure is on the lower side. He has had no chest discomfort, palpitations, lightheadedness or dizziness. He has had no syncope. He has had no nausea, vomiting, diarrhea or bleeding. Past Medical History Past Medical History: Atrial Fibrillation, COPD, Eye Disorder, Hyperlipidemia, Hypertension, Osteoarthritis (OA), Thyroid Disorder Additional Past Medical History / Comment(s): Sober 1978, hiatal hernia, glaucoma left eye, possible stroke behind left eye per opthamologist. arthritis in back,cystic acne on back to see policy cancellation clerk. History of Any Multi-Drug Resistant Organisms: None Reported Past Surgical History: Heart Catheterization Additional Past Surgical History / Comment(s): HYDROCELE surg. x2, hemorrho idectomy, colonoscopy, cataract surgery tamara eyes Past Anesthesia/Blood Transfusion Reactions: No Reported Reaction Additional Past Anesthesia/Blood Transfusion Reaction / Comment(s): no blood transfusions Past Psychological History: Anxiety, Bipolar, Panic Disorder Additional Psychological History / Comment(s): senior care from [id number] Smoking Status: Current every day smoker Past Alcohol Use History: None Reported Additional Past Alcohol Use History / Comment(s): sober 1978., down to 8 cigs/day from 1ppd, had quit on & off since teens, uses nicotine patch off and on. Past Drug Use History: Marijuana Additional Drug Use History / Comment(s): smokes marijauna daily, pt aware not to use 24 hrs before his procedure. - Past Family History Mother Family Medical History: Diabetes Mellitus Father Family Medical History: Coronary Artery Disease (CAD) Sister(s) Family Medical History: Coronary Artery Disease (CAD), Diabetes Mellitus, Hypertension Medications and Allergies Home Medications Medication Instructions Recorded Confirmed Type Latanoprost/Pf [Latanoprost 0.005% 1 drop LEFT EYE HS 08/18/20 03/14/24 History Eye Drop] Levothyroxine Sodium 125 mcg PO DAILY 08/18/20 03/14/24 History Albuterol Sulfate [Albuterol 1 puff INHALATION RT-Q4H PRN 04/01/22 03/14/24 History Sulfate Hfa] Apixaban [Eliquis] 5 mg PO BID 04/01/22 03/14/24 History Aspirin EC [Ecotrin Low Dose] 81 mg PO DAILY 04/01/22 03/14/24 History Loratadine [Claritin] 10 mg PO DAILY 04/01/22 03/14/24 History Fluticasone/Vilanterol [Breo 1 puff INHALATION RT-DAILY 01/11/23 03/14/24 History Ellipta 200-25 Mcg Inhaler] OLANZapine [ZyPREXA] 20 mg PO HS 01/11/23 03/14/24 History Pantoprazole Sodium [Protonix] 40 mg PO DAILY 01/11/23 03/14/24 History Tiotropium [place] [Spiriva 1 puff INHALATION RT-DAILY 01/11/23 03/14/24 History Handihaler] Acetaminophen Tab [Tylenol] 650 mg PO Q4HR PRN tab 01/26/23 03/14/24 Rx Albuterol Nebulized [Ventolin 2.5 mg INHALATION RT-Q6H 03/01/24 03/14/24 History Nebulized] Amiodarone [Cordarone] 100 mg PO DAILY 03/01/24 03/14/24 History Budesonide/Formoterol Fumarate 2 puff INHALATION RT-BID 03/01/24 03/14/24 History [Symbicort 160-4.5 Mcg Inhaler] Gabapentin [Neurontin] 100 mg PO TID 03/01/24 03/14/24 History PARoxetine HCL [Paxil] 30 mg PO DAILY 03/01/24 03/14/24 History Sennosides [Senokot] 8.6 mg PO BID 03/01/24 03/14/24 History Metoprolol Tartrate [Lopressor] 100 mg PO BID #60 tablet 03/06/24 03/14/24 Rx Nicotine 21Mg/24Hr Patch [Habitrol] 1 patch TRANSDERM DAILY #30 patch 03/06/24 03/14/24 Rx Tamsulosin [Flomax] 0.4 mg PO PC-BRKFST #30 cap 03/06/24 03/14/24 Rx predniSONE 10 mg PO DAILY #30 tab 03/06/24 03/14/24 Rx Allergies Allergy/AdvReac Type Severity Reaction Status Date / Time No Known Allergies Allergy Verified 03/14/24 20:11 Physical Exam Vitals: Vital Signs Temp Pulse Pulse Resp BP BP Pulse Ox 03/15/24 07:00 97.7 F 105 H 18 122/83 92 L 03/15/24 02:37 98.4 F 16 L 16 109/72 95 03/14/24 22:44 97.8 F 100 15 100/67 93 L 03/14/24 21:42 105 H 18 101/79 91 L 03/14/24 21:40 22 03/14/24 21:36 99 18 97/79 90 L 03/14/24 21:00 101 H 22 97/75 91 L 03/14/24 20:56 97 03/14/24 20:46 96 03/14/24 20:38 102 H 18 90/67 91 L 03/14/24 20:28 19 93 L 03/14/24 19:35 97.2 F L 100 18 116/52 94 L Intake and Output 03/14/24 03/15/24 03/15/24 22:59 06:59 14:59 Other: # Voids 2 Weight 104.326 kg 104.8 kg PHYSICAL EXAMINATION: This is a 69-year-old male in no apparent distress at the time of my examination. VITAL SIGNS: Reviewed HEENT: Head is atraumatic, normocephalic. Pupils are equal, round. Sclerae anicteric. Conjunctivae are clear. Mucous membranes of the mouth are moist. Neck is supple. There is no elevated jugular venous pressure. No carotid bruit is heard. CHEST EXAMINATION: Lungs are diminished bilaterally with faint expiratory wheezing throughout and left basilar crackles. Respirations even and nonlabored. HEART EXAMINATION: Heart irregular rate and rhythm, positive S1 and S2. No S3. No S4. No clicks, rubs or murmurs. ABDOMEN: Soft, nontender. Bowel sounds are heard. No organomegaly noted. EXTREMITIES: 2+ peripheral pulses with evidence of mild right lower extremity edema and no calf tenderness noted. NEUROLOGIC EXAMINATION: Patient is awake, alert and oriented x3. Results 03/15/24 11:00 03/15/24 11:00 Cardiac Enzymes 03/14/24 03/14/24 Range/Units 20:22 22:51 Troponin I <0.012 <0.012 (0.000-0.034) ng/mL Current Medications Generic Name Dose Route Start Last Admin Trade Name Freq PRN Reason Stop Dose Admin Acetaminophen 650 mg 03/14/24 20:22 Acetaminophen Tab 325 Mg Tab PO Q4HR PRN Mild Pain or Fever > 100.5 Albuterol/Ipratropium 3 ml 03/15/24 08:00 Ipratropium-Albuterol 3 Ml Neb INHALATION RT-QID TESFAYE Albuterol/Ipratropium 3 ml 03/14/24 20:03 03/14/24 20:45 Ipratropium-Albuterol 3 Ml Neb INHALATION 3 ml RT-Q2H PRN Administration Shortness Of Breath Or Wheezing Amiodarone HCl 100 mg 03/15/24 09:00 Amiodarone 100 Mg Tab PO DAILY [facility] Apixaban 5 mg 03/14/24 21:00 03/14/24 21:21 Apixaban 5 Mg Tab PO 5 mg BID TESFAYE Administration Protocol Aspirin 81 mg 03/15/24 09:00 Aspirin 81 Mg PO DAILY [facility] Budesonide/Formoterol Fumarate 2 puff 03/15/24 08:00 Symbicort 160-4.5 Mcg Inhaler INHALATION RT-BID [facility] Budesonide/Formoterol Fumarate 2 puff 03/15/24 08:00 Symbicort 160-4.5 Mcg Inhaler INHALATION RT-BID [facility] Furosemide 40 mg 03/14/24 21:00 03/15/24 06:46 Furosemide 10 Mg/Ml 4 Ml Vial IV 40 mg Q8H TESFAYE Administration Gabapentin 100 mg 03/14/24 22:00 03/14/24 21:21 Gabapentin 100 Mg Cap PO 100 mg TID [facility] Administration Guaifenesin 600 mg 03/14/24 23:15 03/14/24 23:33 Guaifenesin 600 Mg Tablet.Er PO 600 mg Q12HR PRN Administration Congestion Latanoprost 1 drops 03/14/24 21:00 03/14/24 23:33 Latanoprost 0.005% Ophth Drops 2.5 Ml Btl LEFT EYE 1 drops HS [facility] Administration Levothyroxine Sodium 125 mcg 03/15/24 09:00 Levothyroxine 125 Mcg Tab PO DAILY [facility] Loratadine 10 mg 03/15/24 09:00 Loratadine 10 Mg Tab PO DAILY [facility] Methylprednisolone Sodium Succinate 60 mg 03/14/24 20:15 03/15/24 06:46 Methylprednisolone Sod Succi 125 Mg/2 Ml Vial IV 60 mg Q6HR [facility] Administration Metoprolol Tartrate 100 mg 03/14/24 21:00 03/14/24 22:20 Metoprolol Tartrate 50 Mg Tab PO 100 mg BID [facility] Administration Naloxone HCl 0.2 mg 03/14/24 20:03 Naloxone 0.4 Mg/Ml 1 Ml Vial IVP Q2M PRN Opioid Reversal Nicotine 1 patch 03/15/24 09:00 Nicotine 21mg/24hr Patch TRANSDERM DAILY [facility] Nitroglycerin 1 inch 03/14/24 20:15 05/04/24 06:48 Nitroglycerin Oint 1 Inch/Gm Packet TOPICAL 03/15/24 20:16 Not Given Q6HR TESFAYE Olanzapine 20 mg 03/14/24 21:00 03/14/24 21:20 Olanzapine 10 Mg Tab PO 20 mg HS TESFAYE Administration Pantoprazole Sodium 40 mg 03/15/24 09:00 Pantoprazole 40 Mg Tablet PO DAILY [facility] Paroxetine HCl 30 mg 03/15/24 09:00 Paroxetine 10 Mg Tab PO DAILY [facility] Senna 8.6 mg 03/14/24 21:00 03/14/24 21:20 Sennosides 8.6 Mg Tab PO 8.6 mg BID TES[facility] Administration Tamsulosin HCl 0.4 mg 03/15/24 08:30 Tamsulosin 0.4 Mg Cap.Er.24h PO PC-BRKFST TESFAYE Tiotropium [place] 1 puff 03/15/24 08:00 Tiotropium 2.5 Mcg Inhaler INHALATION RT-DAILY [facility] Intake and Output 03/14/24 03/15/24 03/15/24 22:59 06:59 14:59 Other: # Voids 2 Weight 104.326 kg 104.8 kg EKG Interpretations (text) Atrial fibrillation Assessment and Plan Assessment: #1 lower extremity edema #2 atrial fibrillation with poorly controlled ventricular response, likely persistent at this time #3 COPD with recent exacerbation #4 recent hospitalization for pneumonia, sepsis and septic shock #5 tobacco dependence #6 CAD with mild to moderate CAD involving the RCA and LAD by heart catheterization in 2022 Plan: From cardiology's perspective we will stop IV Lasix and switch to oral Lasix. We will add Farxiga 10 mg p.o. daily. We will increase amiodarone to 200 mg for better heart rate control. We will continue to follow renal function and electrolytes. We will continue to follow the patient and provide further recommendations accordingly. FACILITIES MAINTENANCE ENGINEER note has been reviewed, I agree with a documented findings and plan of care. Patient was seen and examined.
[2024-03-15] MEDS: DAPAGLIFLOZIN PROPANEDIOL 10 MG TABLET PO SCH (13:02)
[2024-03-15] MEDS: AMIODARONE 200 MG TAB PO SCH (13:03)
[2024-03-15 13:07] VITALS: BMI 28.1
--- NOTE | 2024-03-15 13:36 | XR ---
EXAMINATION TYPE: XR chest 1V DATE OF EXAM: 03/15/2024 COMPARISON: 03/02/2024 HISTORY: CHF TECHNIQUE: Single frontal view of the chest is obtained. FINDINGS: There is moderate diffuse pulmonary vascular congestion. There is a known large intrathoracic stomach and hiatal hernia. There is a retrocardiac opacity likely combination of atelectasis and pleural effusion. The heart size is difficult to assess given the large hiatal hernia. There is no pneumothorax. IMPRESSION: 1. Findings most consistent with CHF. 2. Large hiatal hernia with intrathoracic stomach
--- NOTE | 2024-03-15 13:59 | P.HPIM ---
History of Present Illness H&P Date: 03/15/24 History of present illness; patient is a 69-year-old patient with past medical history significant for COPD, congestive heart failure, history of bipolar disorder, hypothyroid, hyperlipidemia, atrial fibrillation previous history of PEA cardiac arrest in 2022 who presented to the ER as a transfer from [facility] for shortness of breath. Patient was recently in our facility with similar complaints at which time patient was treated for COPD exacerbation and the patient was seen by pulmonology and cardiology as well. Patient stated for the last few days he has been having increasing shortness of breath on exertion. Patient also complains of swelling of lower extremities. Denies any fever or chills. There is no complaint of chest pain. Patient denies any orthopnea or PND. Because of the symptoms, patient initially presented to [facility] from where he was transferred to [facility]. Patient admitted to internal medicine service REVIEW OF SYSTEMS: CONSTITUTIONAL: No fever, no malaise, no fatigue. HEENT: No recent visual problems or hearing problems. Denied any sore throat. CARDIOVASCULAR: As mentioned HPI PULMONARY: As mentioned in HPI GASTROINTESTINAL: No diarrhea, no nausea, no vomiting, no abdominal pain. NEUROLOGICAL: No headaches, no weakness, no numbness. HEMATOLOGICAL: Denies any bleeding or petechiae. GENITOURINARY: Denies any burning micturition, frequency, or urgency. MUSCULOSKELETAL/RHEUMATOLOGICAL: Denies any joint pain, swelling, or any muscle pain. ENDOCRINE: Denies any polyuria or polydipsia. The rest of the 14-point review of systems is negative. PHYSICAL EXAMINATION: GENERAL: The patient is alert and oriented x3, not in any acute distress. Well developed, well nourished. HEENT: Pupils are round and equally reacting to light. EOMI. No scleral icterus. No conjunctival pallor. Normocephalic, atraumatic. No pharyngeal erythema. No thyromegaly. CARDIOVASCULAR: S1 and S2 present. No murmurs, rubs, or gallops. PULMONARY: Coarse breath sound bilaterally, occasional expiratory wheeze audible ABDOMEN: Soft, nontender, nondistended, normoactive bowel sounds. No palpable organomegaly. MUSCULOSKELETAL: No joint swelling or deformity. EXTREMITIES: No cyanosis, clubbing, or pedal edema. NEUROLOGICAL: Gross neurological examination did not reveal any focal deficits. SKIN: No rashes. Assessment and plan Acute exacerbation of CHF Chronic hypoxic respiratory failure Paroxysmal atrial fibrillation Acute exacerbation of COPD Thrombocytopenia Hyperlipidemia Tobacco use and dependence Significant hiatal hernia Monitor vital signs Monitor CBC Monitor CMP Continue telemetry monitoring Aggressive bronchopulmonary hygiene Continue oxygen supplementation Current use of I-S Strict I's and O's, daily weights, continue IV Lasix 40 mg every 8. Continue breathing treatments Continue IV Solu-Medrol 40 mg Q8 Continue home meds Consult cardiology Consult pulmonology Labs and medication were reviewed.. Continue same treatment. Continue with symptomatic treatment. Resume home medication. Monitor labs and vitals. DVT and GI prophylaxis. Further recommendations as per clinical course of the patient Dictation was produced using [employer] dictation software. please excuse any grammatical, word or spelling errors. Past Medical History Past Medical History: Atrial Fibrillation, COPD, Eye Disorder, Hyperlipidemia, Hypertension, Osteoarthritis (OA), Thyroid Disorder Additional Past Medical History / Comment(s): Sober 1978, hiatal hernia, gla ucoma left eye, possible stroke behind left eye per opthamologist. arthritis in back,cystic acne on back to see corporate compliance manager. History of Any Multi-Drug Resistant Organisms: None Reported Past Surgical History: Heart Catheterization Additional Past Surgical History / Comment(s): HYDROCELE surg. x2, hemorrhoidectomy, colonoscopy, cataract surgery tamara eyes Past Anesthesia/Blood Transfusion Reactions: No Reported Reaction Additional Past Anesthesia/Blood Transfusion Reaction / Comment(s): no blood transfusions Past Psychological History: Anxiety, Bipolar, Panic Disorder Additional Psychological History / Comment(s): long term from [id number] Smoking Status: Current every day smoker Past Alcohol Use History: None Reported Additional Past Alcohol Use History / Comment(s): sober 1978., down to 8 cigs/day from 1ppd, had quit on & off since teens, uses nicotine patch off and on. Past Drug Use History: Marijuana Additional Drug Use History / Comment(s): smokes marijauna daily, pt aware not to use 24 hrs before his procedure. - Past Family History Mother Family Medical History: Diabetes Mellitus Father Family Medical History: Coronary Artery Disease (CAD) Sister(s) Family Medical History: Coronary Artery Disease (CAD), Diabetes Mellitus, Hypertension Medications and Allergies Home Medications Medication Instructions Recorded Confirmed Type Latanoprost/Pf [Latanoprost 0.005% 1 drop LEFT EYE HS 08/18/20 03/14/24 History Eye Drop] Levothyroxine Sodium 125 mcg PO DAILY 08/18/20 03/14/24 History Albuterol Sulfate [Albuterol 1 puff INHALATION RT-Q4H PRN 04/01/22 03/14/24 History Sulfate Hfa] Apixaban [Eliquis] 5 mg PO BID 04/01/22 03/14/24 History Aspirin EC [Ecotrin Low Dose] 81 mg PO DAILY 04/01/22 03/14/24 History Loratadine [Claritin] 10 mg PO DAILY 04/01/22 03/14/24 History Fluticasone/Vilanterol [Breo 1 puff INHALATION RT-DAILY 01/11/23 03/14/24 History Ellipta 200-25 Mcg Inhaler] OLANZapine [ZyPREXA] 20 mg PO HS 01/11/23 03/14/24 History Pantoprazole Sodium [Protonix] 40 mg PO DAILY 01/11/23 03/14/24 History Tiotropium [place] [Spiriva 1 puff INHALATION RT-DAILY 01/11/23 03/14/24 History Handihaler] Acetaminophen Tab [Tylenol] 650 mg PO Q4HR PRN tab 01/26/23 03/14/24 Rx Albuterol Nebulized [Ventolin 2.5 mg INHALATION RT-Q6H 03/01/24 03/14/24 History Nebulized] Amiodarone [Cordarone] 100 mg PO DAILY 03/01/24 03/14/24 History Budesonide/Formoterol Fumarate 2 puff INHALATION RT-BID 03/01/24 03/14/24 History [Symbicort 160-4.5 Mcg Inhaler] Gabapentin [Neurontin] 100 mg PO TID 03/01/24 03/14/24 History PARoxetine HCL [Paxil] 30 mg PO DAILY 03/01/24 03/14/24 History Sennosides [Senokot] 8.6 mg PO BID 03/01/24 03/14/24 History Metoprolol Tartrate [Lopressor] 100 mg PO BID #60 tablet 03/06/24 03/14/24 Rx Nicotine 21Mg/24Hr Patch [Habitrol] 1 patch TRANSDERM DAILY #30 patch 03/06/24 03/14/24 Rx Tamsulosin [Flomax] 0.4 mg PO PC-BRKFST #30 cap 03/06/24 03/14/24 Rx predniSONE 10 mg PO DAILY #30 tab 03/06/24 03/14/24 Rx Allergies Allergy/AdvReac Type Severity Reaction Status Date / Time No Known Allergies Allergy Verified 03/14/24 20:11 Physical Exam Vitals: Vital Signs Temp Pulse Pulse Resp BP BP Pulse Ox 03/15/24 07:00 97.7 F 105 H 18 122/83 92 L 03/15/24 02:37 98.4 F 16 L 16 109/72 95 03/14/24 22:44 97.8 F 100 15 100/67 93 L 03/14/24 21:42 105 H 18 101/79 91 L 03/14/24 21:40 22 03/14/24 21:36 99 18 97/79 90 L 03/14/24 21:00 101 H 22 97/75 91 L 03/14/24 20:56 97 03/14/24 20:46 96 03/14/24 20:38 102 H 18 90/67 91 L 03/14/24 20:28 19 93 L 03/14/24 19:35 97.2 F L 100 18 116/52 94 L Intake and Output 03/14/24 03/15/24 03/15/24 22:59 06:59 14:59 Other: # Voids 2 Weight 104.326 kg 104.8 kg Results CBC & Chem 7: 03/15/24 11:00 03/15/24 11:00 Thrombosis Risk Factor Assmnt - Choose All That Apply Any of the Below Risk Factors Present?: Yes Each Factor Represents 1 point: Obesity (BMI >25), Swollen legs (current) Other Risk Factors: Yes Each Risk Factor Represents 2 Points: Age 61-74 years Other congenital or acquired thrombophilia - If yes, enter type in comment: No Thrombosis Risk Factor Assessment Total Risk Factor Score: 4 Thrombosis Risk Factor Assessment Level: Moderate Risk
--- NOTE | 2024-03-15 14:49 | P.CNPUL ---
History of Present Illness Consult date: 03/15/24 Reason for consult: dyspnea, COPD History of present illness: This is a 69-year-old male patient transferred from [facility] because of worsening shortness of breath. The patient is known to have multiple medical problems including abilities. The patient got transferred to us for increased shortness of breath. There is advanced COPD, oxygen dependent and he was having worsening shortness of breath. Chest x-ray that was done shows cardiomegaly and a large left-sided hiatal hernia with some mild CHF changes. The patient was hypoxic 24 with a hemoglobin 14 and a platelet count of 129. 37 with a creatinine 1.20 sodium level of 143. Troponins are negative. Electrolytes are stable. LFTs are stable. Accordingly, the patient is currently being treated with an acute stroke exacerbation. IV Solu-Medrol please also DuoNeb nebulizer with some of the clock. He is on oral Lasix 40 mg p.o. twice a day. Denies having any chest pain. Limited edema lower extremities bilaterally. The patient has had previous admissions. I was involved in his care back in January 2023 and at that time the patient sustained a cardiac arrest and this occurred while the patient was in inpatient and he was resuscitated successfully. He did encounter some encephalopathy from which she recovered. He is known to have systolic heart failure with an ejection fraction of 45%. He has large hiatal hernia in addition to COPD and chronic A-fib and hypertension hyperlipidemia hypothyroidism. He is also known to have chronic anxiety/depression/bipolar disorder. He subsequently had another admission in the last hospitalization was in February 2024 where he came in for an acute hypoxic/hypercapnic respiratory failure due to stroke exacerbation and a component of acute kidney injury and the patient was stabilized and discharged. He has been using Symbicort on outpatient basis addition to albuterol nebulized treatments [id number] and he is on a maintenance prednisone of 10 mg p.o. daily. He is on long-term anticoagulation with Eliquis. He is also on a combination of amiodarone and metoprolol regarding his chronic A-fib. His most recent echocardiogram from 03/04/2024 showed improvement in LV function with an ejection fraction of 55 to 60%. No significant valvular abnormalities. The patient had normal LV, mild RV dilatation. Review of Systems Constitutional: Reports daytime sleepiness, Reports fatigue, Reports weight gain Eyes: denies as per HPI, denies blurred vision, denies bulging eye, denies decreased vision, denies diplopia, denies discharge, denies dry eye, denies irritation, denies itching, denies pain, denies photophobia, denies loss of peripheral vision, denies loss of vision, denies tunnel vision/blind spots Ears: deny: decreased hearing, ear discharge, earache, tinnitus Ears, nose, mouth and throat: Reports as per HPI Breasts: absent: as per HPI, gynecomastia Cardiovascular: Reports decreased exercise tolerance, Reports dyspnea on exertion, Reports irregular heart beat, Reports shortness of breath Respiratory: Reports as per HPI, Reports cough, Reports dyspnea, Reports home oxygen, Reports wheezing Gastrointestinal: Reports as per HPI Genitourinary: Reports as per HPI Musculoskeletal: Reports as per HPI Musculoskeletal: bilateral: ankle swelling, absent: ankle pain, ankle stiffness Integumentary: Reports as per HPI Neurological: Reports as per HPI Psychiatric: Reports as per HPI Endocrine: Reports as per HPI Hematologic/Lymphatic: Reports as per HPI Allergic/Immunologic: Reports as per HPI Past Medical History Past Medical History: Atrial Fibrillation, COPD, Eye Disorder, Hyperlipidemia, Hypertension, Osteoarthritis (OA), Thyroid Disorder Additional Past Medical History / Comment(s): Sober 1978, hiatal hernia, glaucoma left eye, possible stroke behind left eye per opthamologist. arthritis in back,cystic acne on back to see interactive producer. History of Any Multi-Drug Resistant Organisms: None Reported Past Surgical History: Heart Catheterization Additional Past Surgical History / Comment(s): HYDROCELE surg. x2, hemorrhoidectomy, colonoscopy, cataract surgery tamara eyes Past Anesthesia/Blood Transfusion Reactions: No Reported Reaction Additional Past Anesthesia/Blood Transfusion Reaction / Comment(s): no blood transfusions Past Psychological History: Anxiety, Bipolar, Panic Disorder Additional Psychological History / Comment(s): detention from [id number] Smoking Status: Current every day smoker Past Alcohol Use History: None Reported Additional Past Alcohol Use History / Comment(s): sober 1978., down to 8 cigs/day from 1ppd, had quit on & off since teens, uses nicotine patch off and on. Past Drug Use History: Marijuana Additional Drug Use History / Comment(s): smokes marijauna daily, pt aware not to use 24 hrs before his procedure. - Past Family History Mother Family Medical History: Diabetes Mellitus Father Family Medical History: Coronary Artery Disease (CAD) Sister(s) Family Medical History: Coronary Artery Disease (CAD), Diabetes Mellitus, Hypertension Medications and Allergies Home Medications Medication Instructions Recorded Confirmed Type Latanoprost/Pf [Latanoprost 0.005% 1 drop LEFT EYE HS 08/18/20 03/14/24 History Eye Drop] Levothyroxine Sodium 125 mcg PO DAILY 08/18/20 03/14/24 History Albuterol Sulfate [Albuterol 1 puff INHALATION RT-Q4H PRN 04/01/22 03/14/24 History Sulfate Hfa] Apixaban [Eliquis] 5 mg PO BID 04/01/22 03/14/24 History Aspirin EC [Ecotrin Low Dose] 81 mg PO DAILY 04/01/22 03/14/24 History Loratadine [Claritin] 10 mg PO DAILY 04/01/22 03/14/24 History Fluticasone/Vilanterol [Breo 1 puff INHALATION RT-DAILY 01/11/23 03/14/24 History Ellipta 200-25 Mcg Inhaler] OLANZapine [ZyPREXA] 20 mg PO HS 01/11/23 03/14/24 History Pantoprazole Sodium [Protonix] 40 mg PO DAILY 01/11/23 03/14/24 History Tiotropium [place] [Spiriva 1 puff INHALATION RT-DAILY 01/11/23 03/14/24 History Handihaler] Acetaminophen Tab [Tylenol] 650 mg PO Q4HR PRN tab 01/26/23 03/14/24 Rx Albuterol Nebulized [Ventolin 2.5 mg INHALATION RT-Q6H 03/01/24 03/14/24 History Nebulized] Amiodarone [Cordarone] 100 mg PO DAILY 03/01/24 03/14/24 History Budesonide/Formoterol Fumarate 2 puff INHALATION RT-BID 03/01/24 03/14/24 History [Symbicort 160-4.5 Mcg Inhaler] Gabapentin [Neurontin] 100 mg PO TID 03/01/24 03/14/24 History PARoxetine HCL [Paxil] 30 mg PO DAILY 03/01/24 03/14/24 History Sennosides [Senokot] 8.6 mg PO BID 03/01/24 03/14/24 History Metoprolol Tartrate [Lopressor] 100 mg PO BID #60 tablet 03/06/24 03/14/24 Rx Nicotine 21Mg/24Hr Patch [Habitrol] 1 patch TRANSDERM DAILY #30 patch 03/06/24 03/14/24 Rx Tamsulosin [Flomax] 0.4 mg PO PC-BRKFST #30 cap 03/06/24 03/14/24 Rx predniSONE 10 mg PO DAILY #30 tab 03/06/24 03/14/24 Rx Allergies Allergy/AdvReac Type Severity Reaction Status Date / Time No Known Allergies Allergy Verified 03/14/24 20:11 Physical Exam Vitals: Vital Signs Temp Pulse Pulse Resp BP BP Pulse Ox 03/15/24 12:15 104 H 03/15/24 12:05 100 03/15/24 09:27 100 03/15/24 09:16 104 H 92 L 03/15/24 07:00 97.7 F 105 H 18 122/83 92 L 03/15/24 02:37 98.4 F 16 L 16 109/72 95 03/14/24 22:44 97.8 F 100 15 100/67 93 L 03/14/24 21:42 105 H 18 101/79 91 L 03/14/24 21:40 22 03/14/24 21:36 99 18 97/79 90 L 03/14/24 21:00 101 H 22 97/75 91 L 03/14/24 20:56 97 03/14/24 20:46 96 03/14/24 20:38 102 H 18 90/67 91 L 03/14/24 20:28 19 93 L 03/14/24 19:35 97.2 F L 100 18 116/52 94 L Intake and Output 03/14/24 03/15/24 03/15/24 22:59 06:59 14:59 Other: # Voids 2 0 Weight 104.326 kg 104.8 kg 104.8 kg GENERAL EXAM: Alert, oriented, disheveled 69-year-old male patient, on 3 L nasal cannula, comfortable in no apparent distress. HEAD: Normocephalic. EYES: Normal reaction of pupils, equal size. NOSE: Clear with pink turbinates. THROAT: No erythema or exudates. NECK: No masses, no JVD. CHEST: No chest wall deformity. LUNGS: Equal air entry with no crackles, wheeze, rhonchi or dullness. Diminished in the left lung base CVS: S1 and S2 normal with no audible murmur, regular rhythm. ABDOMEN: No hepatosplenomegaly, normal bowel sounds, no guarding or rigidity. SPINE: No scoliosis or deformity SKIN: No rashes CENTRAL NERVOUS SYSTEM: No focal deficits, tone is normal in all 4 extremities. EXTREMITIES: There is no peripheral edema. No clubbing, no cyanosis. Peripheral pulses are intact. Results - Laboratory Findings CBC and BMP: 03/15/24 11:00 03/15/24 11:00 Abnormal lab findings: Abnormal Labs 03/15/24 03/15/24 11:00 11:00 WBC 24.6 H Plt Count 129 L Neutrophils # 22.7 H Carbon Dioxide 36 H BUN 37 H Glucose 140 H Calcium 8.3 L Total Protein 5.2 L Albumin 2.8 L - Diagnostic Findings Chest x-ray: image reviewed Assessment and Plan Plan: Acute exacerbation of COPD with secondary shortness of breath. There may be also component of CHF with diastolic heart failure with increased pulm vessel markings. Chest x-ray reveals cardiomegaly and pulm vessel congestion. The patient is also bronchospastic and wheezy Chronic hypoxic/hypercapnic respiratory failure, maintained on home O2 Previous history of in-hospital cardiac arrest complicated by ventilator dependent respiratory failure and encephalopathy back in January 2023, recovered Previous history of hospital-acquired pneumonia with Citrobacter back in January 2023 Chronic diastolic heart failure with preserved LV function Large hiatal hernia as noted on the initial CAT scan of the chest Chronic and ongoing tobacco dependence Chronic atrial fibrillation, anticoagulated with Eliquis, maintain on a combination of metoprolol and amiodarone and rate is controlled for now History of hypertension Hyperlipidemia Hypothyroidism History of bipolar disorder History of anxiety/depression History of marijuana use Plan Restart bronchodilators IV Solu-Medrol Smoking cessation counseling Chest x-ray was reviewed May benefit from a home noninvasive pressure pressure ventilator as the patient may have a component of obstructive sleep apnea in addition to COPD and chronic hypercapnic respiratory failure Cardiac medications to be resumed Continue anticoagulation with Eliquis Continue diuretics Will continue to follow
[2024-03-15] MEDS: FUROSEMIDE 40 MG TAB PO SCH (16:40)
[2024-03-16 09:26] LABS: HGB 14.7 g/dL (13.0-17.0); MCH 30.5 pg (27.0-32.0); MCHC 31.3 g/dL (32.0-37.0); MCV 97.5 FL (80.0-97.0); Mean Platelet Volume 12.9 FL (9.5-12.2); NRBC Per 100 WBC 0 X 10*3/uL (0.00-0.01); Platelet Count 138 X 10*3/uL (140-440); RBC 4.82 X 10*6/uL (4.40-5.60); RDW 14.1 % (11.5-14.5); WBC 28.55 X 10*3/uL (4.50-10.00)
[2024-03-16 09:44] LABS: ALT 35 U/L (10-49); AST 16 U/L (14-35); Albumin 3.6 g/dL (3.8-4.9); Albumin/Globulin Ratio 1.89 Ratio (1.60-3.17); Alkaline Phosphatase 73 U/L (41-126); BUN/Creat Ratio 21.86 Ratio (12.00-20.00); Blood Urea Nitrogen 30.6 mg/dL (9.0-27.0); Calcium 9.2 mg/dL (8.7-10.3); Carbon Dioxide 33.7 mmol/L (21.6-31.8); Chloride 105 mmol/L (96-109); Globulin 1.9 g/dL (1.6-3.3); Glucose 129 mg/dL (70-110); Sodium 149 mmol/L (135-145); Total Bilirubin 0.4 mg/dL (0.3-1.2); Total Protein 5.5 g/dL (6.2-8.2)
[2024-03-16 10:00] LABS: Basophils # (A) 0.08 X 10*3/uL (0.00-0.10); Basophils % (A) 0.3 %; Eosinophils # (A) 0 X 10*3/uL (0.04-0.35); Eosinophils % (A) 0 %; Lymphocytes # (A) 1.48 X 10*3/uL (0.90-5.00); Lymphocytes % (A) 5.2 %; Monocytes # (A) 0.71 X 10*3/uL (0.20-1.00); Monocytes % (A) 2.5 %; Neutrophils % (A) 90.3 %; RBC Morphology Normal (Normal)
--- NOTE | 2024-03-16 12:07 | P.PN ---
Subjective Progress Note Date: 03/16/24 This is a pleasant 69-year-old gentleman who follows in the office with Dr. Jasso. He has a past medical history of paroxysmal atrial fibrillation, currently persistent, [facility] guided cardioversion x 2 in the past with discussion of referral to Dr. 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 He is a current every day smoker, has reduced his intake to 2 cigarettes a day. Was recently admitted to the hospital with pneumonia and discharged for 5 days ago. Since discharge she has felt felt his breathing has improved. He has no orthopnea or PND. He presented initially to [facility] in [place] at the advice of his sister due to worsening edema in the lower extrem ities. At that time chest x-ray showed possible CHF and possible left lower lobe infiltrate. White blood cell count was 17,400. NT proBNP came back at 404 which was previously 721 on last admission. Echocardiogram during previous admission revealed preserved LV systolic function. He was discharged home last admission on oxygen and overall has been feeling that his breathing is gradually improving. He has been quite an active and consuming quite a lot of sodium since discharge. He has noticed worsening edema more in the right than the left. Presentation to the emergency department he has noticed an improvement with resolution of the edema in the left lower extremity and improvement in the right. He continues to be in atrial fibrillation with suboptimally controlled ventricular response with heart rate running in the low 100s. He is currently on amiodarone 100 mg daily and metoprolol tartrate 100 mg p.o. twice daily. He is anticoagulated on Eliquis. His blood pressure is on the lower side. He has had no chest discomfort, palpitations, lightheadedness or dizziness. He has had no syncope. He has had no nausea, vomiting, diarrhea or bleeding. 03/16/2024 Patient was seen and examined resting comfortably in bed. His breathing is stable his edema has significantly improved with no acute edema noted bilaterally in the lower extremities. He is currently tolerating the Farxiga and is on oral Lasix. Objective - Vital Signs Vital signs: Vital Signs Temp 98.4 F 03/16/24 07:00 Pulse 96 03/16/24 07:59 Resp 18 03/16/24 07:00 BP 92/60 03/16/24 07:00 Pulse Ox 96 03/16/24 07:43 FiO2 Intake & Output 03/15/24 03/16/24 03/16/24 18:59 06:59 18:59 Weight 104.8 kg 103.7 kg Other: # Voids 0 1 - Exam PHYSICAL EXAMINATION: This is a 69-year-old male in no apparent distress at the time of my examination. VITAL SIGNS: Reviewed HEENT: Head is atraumatic, normocephalic. Pupils are equal, round. Sclerae anicteric. Conjunctivae are clear. Mucous membranes of the mouth are moist. Neck is supple. There is no elevated jugular venous pressure. No carotid bruit is heard. CHEST EXAMINATION: Lungs are diminished bilaterally with faint expiratory wheezing throughout and left basilar crackles. Respirations even and nonlabored. HEART EXAMINATION: Heart irregular rate and rhythm, positive S1 and S2. No S3. No S4. No clicks, rubs or murmurs. ABDOMEN: Soft, nontender. Bowel sounds are heard. No organomegaly noted. EXTREMITIES: 2+ peripheral pulses with no evidence of peripheral edema and no calf tenderness noted. NEUROLOGIC EXAMINATION: Patient is awake, alert and oriented x3. - Labs CBC & Chem 7: 03/16/24 06:02 03/16/24 06:02 Labs: Abnormal Lab Results - Last 24 Hours (Table) 03/15/24 03/15/24 03/16/24 Range/Units 11:00 11:00 06:02 WBC 24.6 H 28.55 H (3.8-10.6) k/uL MCV 97.5 H (80.0-97.0) FL MCHC 31.3 L (32.0-37.0) g/dL Plt Count 129 L 138 L (150-450) k/uL MPV 12.9 H (9.5-12.2) FL Immature Gran # 0.48 H (0.00-0.04) X 10*3/uL Neutrophils # 22.7 H 25.80 H (1.3-7.7) k/uL Eosinophils # 0 L (0.04-0.35) X 10*3/uL Sodium (135-145) mmol/L Carbon Dioxide 36 H (22-30) mmol/L BUN 37 H (9-20) mg/dL Est GFR (CKD-EPI) (>=60) BUN/Creatinine Ratio (12.00-20.00) Ratio Glucose 140 H (74-99) mg/dL Calcium 8.3 L (8.4-10.2) mg/dL Total Protein 5.2 L (6.3-8.2) g/dL Albumin 2.8 L (3.5-5.0) g/dL 03/16/24 Range/Units 06:02 WBC (3.8-10.6) k/uL MCV (80.0-97.0) FL MCHC (32.0-37.0) g/dL Plt Count (150-450) k/uL MPV (9.5-12.2) FL Immature Gran # (0.00-0.04) X 10*3/uL Neutrophils # (1.3-7.7) k/uL Eosinophils # (0.04-0.35) X 10*3/uL Sodium 149 H (135-145) mmol/L Carbon Dioxide 33.7 H (22-30) mmol/L BUN 30.6 H (9-20) mg/dL Est GFR (CKD-EPI) 55 L (>=60) BUN/Creatinine Ratio 21.86 H (12.00-20.00) Ratio Glucose 129 H (74-99) mg/dL Calcium (8.4-10.2) mg/dL Total Protein 5.5 L (6.3-8.2) g/dL Albumin 3.6 L (3.5-5.0) g/dL Assessment and Plan Assessment: #1 lower extremity edema, resolved #2 atrial fibrillation with poorly controlled ventricular response, likely persistent at this time #3 COPD with recent exacerbation #4 recent hospitalization for pneumonia, sepsis and septic shock #5 tobacco dependence #6 CAD with mild to moderate CAD involving the RCA and LAD by heart catheterization in 2022 Plan: From cardiology's perspective occasions were reviewed and we will continue the same. Heart rate is better controlled and his edema has resolved. From our standpoint patient may be discharged home he will follow-up in the office with Dr. Jasso to further discuss possibility of druze of sinus mechanism. DITCH RIDER note has been reviewed, I agree with a documented findings and plan of care. Patient was seen and examined.
--- NOTE | 2024-03-16 12:42 | P.PN ---
Subjective Progress Note Date: 03/16/24 patient is a 69-year-old patient with past medical history significant for COPD, congestive heart failure, history of bipolar disorder, hypothyroid, hyperlipidemia, atrial fibrillation previous history of PEA cardiac arrest in 2022 who presented to the ER as a transfer from [facility] for pool rtness of breath. Patient was recently in our facility with similar complaints at which time patient was treated for COPD exacerbation and the patient was seen by pulmonology and cardiology as well. Patient stated for the last few days he has been having increasing shortness of breath on exertion. Patient also complains of swelling of lower extremities. Denies any fever or chills. There is no complaint of chest pain. Patient denies any orthopnea or PND. Because of the symptoms, patient initially presented to [facility] from where he was transferred to [facility]. Patient admitted to internal medicine service 03/16. Patient seen and examined. Currently on 2 L of oxygen. Lab work done this morning showed WBC 28.55, hemoglobin 14.7, platelet count 138, sodium 149, potassium 4, BUN 30.6, creatinine 1.4. Patient states swelling of legs is improved. Gets short of breath on exertion REVIEW OF SYSTEMS: CONSTITUTIONAL: No fever, no malaise,. CARDIOVASCULAR: No chest pain, no palpitations, no syncope. PULMONARY: As mentioned above GASTROINTESTINAL: No diarrhea, no nausea, no vomiting, no abdominal pain. NEUROLOGICAL: No headaches, no weakness, PHYSICAL EXAMINATION: GENERAL: The patient is alert and oriented x3, not in any acute distress. Well developed, well nourished. HEENT: Pupils are round and equally reacting to light. EOMI. No scleral icterus. No conjunctival pallor. Normocephalic, atraumatic. No pharyngeal erythema. No thyromegaly. CARDIOVASCULAR: S1 and S2 present. No murmurs, rubs, or gallops. PULMONARY: Coarse breath sound bilaterally, no wheeze audible ABDOMEN: Soft, nontender, nondistended, normoactive bowel sounds. No palpable organomegaly. MUSCULOSKELETAL: No joint swelling or deformity. EXTREMITIES: No cyanosis, clubbing, or pedal edema. NEUROLOGICAL: Gross neurological examination did not reveal any focal deficits. SKIN: No rashes. Assessment and plan Acute exacerbation of CHF Chronic hypoxic respiratory failure Paroxysmal atrial fibrillation Acute exacerbation of COPD Thrombocytopenia Hyperlipidemia Tobacco use and dependence Significant hiatal hernia Monitor vital signs Monitor CBC Monitor CMP Continue telemetry monitoring Aggressive bronchopulmonary hygiene Continue oxygen supplementation Current use of I-S Strict I's and O's, daily weights, change IV Lasix to oral 40 mg twice a day Continue breathing treatments Continue IV Solu-Medrol 40 mg Q8 Continue home meds Cardiology following Pulmonology following Labs and medication were reviewed.. Continue same treatment. Continue with symptomatic treatment. Resume home medication. Monitor labs and vitals. DVT and GI prophylaxis. Further recommendations as per clinical course of the patient Dictation was produced using [employer] dictation software. please excuse any grammatical, word or spelling errors. Objective - Vital Signs Vital signs: Vital Signs Temp 98.4 F 03/16/24 07:00 Pulse 96 03/16/24 07:59 Resp 18 03/16/24 07:00 BP 92/60 03/16/24 07:00 Pulse Ox 96 03/16/24 07:43 FiO2 Intake & Output 03/15/24 03/16/24 03/16/24 18:59 06:59 18:59 Weight 104.8 kg 103.7 kg Other: # Voids 0 1 - Labs CBC & Chem 7: 03/16/24 06:02 03/16/24 06:02 Labs: Abnormal Lab Results - Last 24 Hours (Table) 03/15/24 03/15/24 03/16/24 Range/Units 11:00 11:00 06:02 WBC 24.6 H 28.55 H (3.8-10.6) k/uL MCV 97.5 H (80.0-97.0) FL MCHC 31.3 L (32.0-37.0) g/dL Plt Count 129 L 138 L (150-450) k/uL MPV 12.9 H (9.5-12.2) FL Immature Gran # 0.48 H (0.00-0.04) X 10*3/uL Neutrophils # 22.7 H 25.80 H (1.3-7.7) k/uL Eosinophils # 0 L (0.04-0.35) X 10*3/uL Sodium (135-145) mmol/L Carbon Dioxide 36 H (22-30) mmol/L BUN 37 H (9-20) mg/dL Est GFR (CKD-EPI) (>=60) BUN/Creatinine Ratio (12.00-20.00) Ratio Glucose 140 H (74-99) mg/dL Calcium 8.3 L (8.4-10.2) mg/dL Total Protein 5.2 L (6.3-8.2) g/dL Albumin 2.8 L (3.5-5.0) g/dL /04/04 Range/Units 06:02 WBC (3.8-10.6) k/uL MCV (80.0-97.0) FL MCHC (32.0-37.0) g/dL Plt Count (150-450) k/uL MPV (9.5-12.2) FL Immature Gran # (0.00-0.04) X 10*3/uL Neutrophils # (1.3-7.7) k/uL Eosinophils # (0.04-0.35) X 10*3/uL Sodium 149 H (135-145) mmol/L Carbon Dioxide 33.7 H (22-30) mmol/L BUN 30.6 H (9-20) mg/dL Est GFR (CKD-EPI) 55 L (>=60) BUN/Creatinine Ratio 21.86 H (12.00-20.00) Ratio Glucose 129 H (74-99) mg/dL Calcium (8.4-10.2) mg/dL Total Protein 5.5 L (6.3-8.2) g/dL Albumin 3.6 L (3.5-5.0) g/dL
--- NOTE | 2024-03-16 12:53 | P.PN ---
Subjective Progress Note Date: 03/16/24 This is a 69-year-old male patient transferred from [facility] because of worsening shortness of breath. The patient is known to have multiple medical problems including abilities. The patient got transferred to us for increased shortness of breath. There is advanced COPD, oxygen dependent and he was having worsening shortness of breath. Chest x-ray that was done shows cardiomegaly and a large left-sided hiatal hernia with some mild CHF changes. The patient was hypoxic 24 with a hemoglobin 14 and a platelet count of 129. 37 with a creatinine 1.20 sodium level of 143. Troponins are negative. Electrolytes are stable. LFTs are stable. Accordingly, the patient is currently being treated with an acute stroke exacerbation. IV Solu-Medrol please also DuoNeb nebulizer with some of the clock. He is on oral Lasix 40 mg p.o. twice a day. Denies having any chest pain. Limited edema lower extremities bilaterally. The patient has had previous admissions. I was involved in his care back in January 2023 and at that time the patient sustained a cardiac arrest and this occurred while the patient was in inpatient and he was resuscitated successfully. He did encounter some encephalopathy from which she recovered. He is known to have systolic heart failure with an ejection fraction of 45%. He has large hiatal hernia in addition to COPD and chronic A-fib and hypertension hyperlipidemia hypothyroidism. He is also known to have chronic anxiety/depression/bipolar disorder. He subsequently had another admission in the last hospitalization was in February 2024 where he came in for an acute hypoxic/hypercapnic respiratory failure due to stroke exacerbation and a component of acute kidney injury and the patient was stabilized and discharged. He has been using Symbicort on outpatient basis addition to albuterol nebulized treatments [id number] and he is on a maintenance prednisone of 10 mg p.o. daily. He is on long-term anticoagulation with Eliquis. He is also on a combination of amiodarone and metoprolol regarding his chronic A-fib. His most recent echocardiogram from 03/04/2024 showed improvement in LV function with an ejection fraction of 55 to 60%. No significant valvular abnormalities. The patient had normal LV, mild RV dilatation. 03/16/2024, the patient is less short of breath and less bronchospastic and wheezy and reports marked improvement in his respiratory status. He has been diuresed well and he reports improvement in lower extremity edema. No chest pain. He is currently on 2 L of oxygen by nasal cannula and sitting up in a chair. White cell count 22 edema 14.7 and platelet count of 138. BUN is 34 with a creatinine of 1.4 and sodium is at 149. The patient was taken off the IV Lasix and the patient is currently on oral Lasix 40 mg twice a day. Remains on DuoNeb updrafts. Remains on Symbicort and Spiriva. Objective - Vital Signs Vital signs: Vital Signs Temp 98.4 F 03/16/24 07:00 Pulse 96 03/16/24 07:59 Resp 18 03/16/24 07:00 BP 92/60 03/16/24 07:00 Pulse Ox 96 03/16/24 07:43 FiO2 Intake & Output 03/15/24 03/16/24 03/16/24 18:59 06:59 18:59 Weight 104.8 kg 103.7 kg Other: # Voids 0 1 - Exam GENERAL EXAM: Alert, oriented, disheveled 69-year-old male patient, on 3 L nasal cannula, comfortable in no apparent distress. HEAD: Normocephalic. EYES: Normal reaction of pupils, equal size. NOSE: Clear with pink turbinates. THROAT: No erythema or exudates. NECK: No masses, no JVD. CHEST: No chest wall deformity. LUNGS: Equal air entry with no crackles, wheeze, rhonchi or dullness. Diminished in the left lung base CVS: S1 and S2 normal with no audible murmur, regular rhythm. ABDOMEN: No hepatosplenomegaly, normal bowel sounds, no guarding or rigidity. SPINE: No scoliosis or deformity SKIN: No rashes CENTRAL NERVOUS SYSTEM: No focal deficits, tone is normal in all 4 extremities. EXTREMITIES: There is no peripheral edema. No clubbing, no cyanosis. Peripheral pulses are intact. - Labs CBC & Chem 7: 03/16/24 06:02 03/16/24 06:02 Labs: Abnormal Lab Results - Last 24 Hours (Table) 03/15/24 03/16/24 03/16/24 Range/Units 11:00 06:02 06:02 WBC 28.55 H (4.50-10.00) X 10*3/uL MCV 97.5 H (80.0-97.0) FL MCHC 31.3 L (32.0-37.0) g/dL Plt Count 138 L (140-440) X 10*3/uL MPV 12.9 H (9.5-12.2) FL Immature Gran # 0.48 H (0.00-0.04) X 10*3/uL Neutrophils # 25.80 H (1.80-7.70) X 10*3/uL Eosinophils # 0 L (0.04-0.35) X 10*3/uL Sodium 149 H (135-145) mmol/L Carbon Dioxide 36 H 33.7 H (22-30) mmol/L BUN 37 H 30.6 H (9-20) mg/dL Est GFR (CKD-EPI) 55 L (>=60) BUN/Creatinine Ratio 21.86 H (12.00-20.00) Ratio Glucose 140 H 129 H (74-99) mg/dL Calcium 8.3 L (8.4-10.2) mg/dL Total Protein 5.2 L 5.5 L (6.3-8.2) g/dL Albumin 2.8 L 3.6 L (3.5-5.0) g/dL Assessment and Plan Plan: Acute exacerbation of COPD with secondary shortness of breath. There may be also component of CHF with diastolic heart failure with increased pulm vessel markings. Chest x-ray reveals cardiomegaly and pulm vessel congestion. The patient is also bronchospastic and wheezy, overall improved compared to yesterday. Response to bronchodilators and steroids. Chronic hypoxic/hypercapnic respiratory failure, maintained on home O2 Previous history of in-hospital cardiac arrest complicated by ventilator dependent respiratory failure and encephalopathy back in January 2023, recovered Previous history of hospital-acquired pneumonia with Citrobacter back in January 2023 Chronic diastolic heart failure with preserved LV function Large hiatal hernia as noted on the initial CAT scan of the chest Chronic and ongoing tobacco dependence Chronic atrial fibrillation, anticoagulated with Eliquis, maintain on a combination of metoprolol and amiodarone and rate is controlled for now History of hypertension Hyperlipidemia Hypothyroidism History of bipolar disorder History of anxiety/depression History of marijuana use Plan Continue bronchodilators IV Solu-Medrol Smoking cessation counseling Chest x-ray was reviewed May benefit from a home noninvasive pressure pressure ventilator as the patient may have a component of obstructive sleep apnea in addition to COPD and chronic hypercapnic respiratory failure Cardiac medications to be resumed Continue anticoagulation with Eliquis Continue diuretics and the patient has been switched to oral Lasix. Monitor renal function Monitor sodium level Will continue to follow
[2024-03-17] MEDS: predniSONE 20 MG TAB PO SCH (09:36)
--- NOTE | 2024-03-17 12:59 | P.PN ---
Subjective Progress Note Date: 03/17/24 This is a 69-year-old male patient transferred from [facility] because of worsening shortness of breath. The patient is known to have multiple medical problems including abilities. The patient got transferred to us for increased shortness of breath. There is advanced COPD, oxygen dependent and he was having worsening shortness of breath. Chest x-ray that was done shows cardiomegaly and a large left-sided hiatal hernia with some mild CHF changes. The patient was hypoxic 24 with a hemoglobin 14 and a platelet count of 129. 37 with a creatinine 1.20 sodium level of 143. Troponins are negative. Electrolytes are stable. LFTs are stable. Accordingly, the patient is currently being treated with an acute stroke exacerbation. IV Solu-Medrol please also DuoNeb nebulizer with some of the clock. He is on oral Lasix 40 mg p.o. twice a day. Denies having any chest pain. Limited edema lower extremities bilaterally. The patient has had previous admissions. I was involved in his care back in January 2023 and at that time the patient sustained a cardiac arrest and this occurred while the patient was in inpatient and he was resuscitated successfully. He did encounter some encephalopathy from which she recovered. He is known to have systolic heart failure with an ejection fraction of 45%. He has large hiatal hernia in addition to COPD and chronic A-fib and hypertension hyperlipidemia hypothyroidism. He is also known to have chronic anxiety/depression/bipolar disorder. He subsequently had another admission in the last hospitalization was in February 2024 where he came in for an acute hypoxic/hypercapnic respiratory failure due to stroke exacerbation and a component of acute kidney injury and the patient was stabilized and discharged. He has been using Symbicort on outpatient basis addition to albuterol nebulized treatments [id number] and he is on a maintenance prednisone of 10 mg p.o. daily. He is on long-term anticoagulation with Eliquis. He is also on a combination of amiodarone and metoprolol regarding his chronic A-fib. His most recent echocardiogram from 03/04/2024 showed improvement in LV function with an ejection fraction of 55 to 60%. No significant valvular abnormalities. The patient had normal LV, mild RV dilatation. 03/16/2024, the patient is less short of breath and less bronchospastic and wheezy and reports marked improvement in his respiratory status. He has been diuresed well and he reports improvement in lower extremity edema. No chest pain. He is currently on 2 L of oxygen by nasal cannula and sitting up in a chair. White cell count 22 edema 14.7 and platelet count of 138. BUN is 34 with a creatinine of 1.4 and sodium is at 149. The patient was taken off the IV Lasix and the patient is currently on oral Lasix 40 mg twice a day. Remains on DuoNeb updrafts. Remains on Symbicort and Spiriva. The patient is seen today March 17, 2024 in follow-up on the regular medical floor. He is currently sitting up in a chair at the bedside. Awake and alert in no acute distress. Feeling back to his baseline. He is maintaining O2 saturations in the 90s on 3 L/min per nasal cannula. No new labs today. He remains on DuoNeb ventilations, Symbicort, Spiriva, Solu-Medrol. Remains on oral diuretics. Anticoagulated with Eliquis. NicoDerm patch in place. Objective - Vital Signs Vital signs: Vital Signs Temp 98 F 03/17/24 07:00 Pulse 100 03/17/24 12:12 Resp 17 03/17/24 08:00 BP 138/72 03/17/24 07:00 Pulse Ox 90 L 03/17/24 09:32 FiO2 Intake & Output 03/16/24 03/17/24 03/17/24 18:59 06:59 18:59 Intake Total 118 Balance 118 Weight 103.9 kg Intake: Oral 118 Other: Voiding Method Toilet # Voids 2 1 # Bowel Movements 0 - Exam GENERAL EXAM: Alert, oriented, 69-year-old male, on 3 L nasal cannula, comfortable in no apparent distress. HEAD: Normocephalic. EYES: Normal reaction of pupils, equal size. NOSE: Clear with pink turbinates. THROAT: No erythema or exudates. NECK: No masses, no JVD. CHEST: No chest wall deformity. LUNGS: Equal air entry with no crackles, wheeze, rhonchi or dullness. Diminished in the left lung base CVS: S1 and S2 normal with no audible murmur, regular rhythm. ABDOMEN: No hepatosplenomegaly, normal bowel sounds, no guarding or rigidity. SPINE: No scoliosis or deformity SKIN: No rashes CENTRAL NERVOUS SYSTEM: No focal deficits, tone is normal in all 4 extremities. EXTREMITIES: There is no peripheral edema. No clubbing, no cyanosis. Peripheral pulses are intact. - Labs CBC & Chem 7: 03/16/24 06:02 03/16/24 06:02 Assessment and Plan Assessment: Acute exacerbation of COPD with secondary shortness of breath. There may be also component of CHF with diastolic heart failure with increased pulm vessel markings. Chest x-ray reveals cardiomegaly and pulmonary congestion. Good response to bronchodilators and steroids. Chronic hypoxic/hypercapnic respiratory failure, maintained on home O2 Previous history of in-hospital cardiac arrest complicated by ventilator dependent respiratory failure and encephalopathy back in January 2023, recovered Previous history of hospital-acquired pneumonia with Citrobacter back in January 2023 Chronic diastolic heart failure with preserved LV function Large hiatal hernia as noted on the initial CAT scan of the chest Chronic and ongoing tobacco dependence Chronic atrial fibrillation, anticoagulated with Eliquis, maintain on a combination of metoprolol and amiodarone and rate is controlled for now History of hypertension Hyperlipidemia Hypothyroidism History of bipolar disorder History of anxiety/depression History of marijuana use Plan The patient was seen and evaluated Labs and medications reviewed Educated regarding smoking cessation Cleared for discharge from the pulmonary standpoint Continue his home oxygen, pulmonary medications Complete a prednisone taper Follow-up in the office in 1 week I have personally seen and examined the patient, performed the documentation and the assessment and plan as written. Number of minutes spent on the visit: 10.
[2024-03-17 15:23] VITALS: BP 104/62; RESP 18; TEMP 97.4
[2024-03-17 15:59] LABS: African American GFR (CKD) 71 (>60 ml/min/1.73 sqM); Blood Urea Nitrogen 35 mg/dL (9-20); Calcium 8.7 mg/dL (8.4-10.2); Carbon Dioxide 34 mmol/L (22-30); Glucose 128 mg/dL (74-99); Non-African American GFR(CKD) 61 (>60 ml/min/1.73 sqM)
[2024-03-17 16:00] LABS: Anion Gap 4 mmol/L; Chloride 104 mmol/L (98-107); Potassium 3.7 mmol/L (3.5-5.1); Sodium 142 mmol/L (137-145)
[2024-03-17 16:50] VITALS: PULSE 94
== END 2024-03-17 16:42 | disposition home or self-care (01) ==
LOC: EC 19:29 → 6NMEDSUR 20:04
PROVIDERS: ADMIT Internal Medicine; ATTEND Internal Medicine
DX: I11.0 Hypertensive heart disease with heart failure (principal); I50.42 Chronic combined systolic (congestive) and diastolic (congestive) heart failure; J44.1 Chronic obstructive pulmonary disease with (acute) exacerbation; I25.10 Atherosclerotic heart disease of native coronary artery without angina pectoris; J96.12 Chronic respiratory failure with hypercapnia; J96.11 Chronic respiratory failure with hypoxia; I48.0 Paroxysmal atrial fibrillation; E78.5 Hyperlipidemia, unspecified; F41.0 Panic disorder [episodic paroxysmal anxiety]; F31.9 Bipolar disorder, unspecified; E03.9 Hypothyroidism, unspecified; K44.9 Diaphragmatic hernia without obstruction or gangrene; D69.6 Thrombocytopenia, unspecified; F17.210 Nicotine dependence, cigarettes, uncomplicated; F12.90 Cannabis use, unspecified, uncomplicated; Z86.74 Personal history of sudden cardiac arrest; Z99.81 Dependence on supplemental oxygen; Z79.890 Hormone replacement therapy; Z79.899 Other long term (current) drug therapy; Z79.01 Long term (current) use of anticoagulants; Z79.82 Long term (current) use of aspirin; Z79.51 Long term (current) use of inhaled steroids
CPT/HCPCS: 96376 ×3; 96374; 96375; 99285; 94640 ×7; 94760 ×3; 93005; 80053 ×2; 80048; 84484; 85025 ×2; 71045; G0378 ×4; S4990 ×2; J1940 ×2; J7512; J2919 ×4

== ENCOUNTER 2024-05-01 10:25 | Inpatient (IN) | payer MEDICARE, OTHER ==
--- NOTE | 2024-05-01 11:28 | XR ---
EXAMINATION TYPE: XR chest 1V portable DATE OF EXAM: 05/01/2024 HISTORY: Shortness of breath. COMPARISON: 03/15/2024 TECHNIQUE: Single view of the chest is submitted. FINDINGS: Demonstrated are scattered senescent parenchymal change. Left lower lobe infiltrate. Fixed hiatal hernia. Right lung is clear. The heart is stable. Hilar and mediastinal structures are within normal limits. Degenerative changes are seen of the dorsal spine. IMPRESSION: 1. Left lower lobe infiltrate. Fixed hiatal hernia. Right lung is clear.
[2024-05-01] MEDS: IPRATROPIUM-ALBUTEROL 3 ML NEB INHALATION STA (11:33)
--- NOTE | 2024-05-01 11:44 | XR ---
EXAMINATION TYPE: XR pelvis AP view DATE OF EXAM: 05/01/2024 CLINICAL HISTORY: pain TECHNIQUE: Single view the pelvis is submitted. FINDINGS: No evidence for fracture, dislocation or bony lesion. Joint spaces are well-preserved. S I joints appear symmetric. IMPRESSION: 1. No acute fracture or dislocation seen. ICD 10 NO FRACTURE, INITIAL EVALUATION
[2024-05-01] MEDS: LIDOCAINE 4% PATCH TOPICAL STA (11:58)
[2024-05-01] MEDS: SODIUM CHLORIDE 0.9% 1,000 ML IV STA ×2 (11:59→13:15)
--- NOTE | 2024-05-01 12:08 | CT ---
EXAMINATION TYPE: CT chest wo con DATE OF EXAM: 05/01/2024 COMPARISON: 3 HISTORY: Fall, rib pain CT DLP: 624.2 mGycm, Automated exposure control for dose reduction was used. CONTRAST: Performed injected with 0 mL of Isovue 300. TECHNIQUE: Axial images were obtained at 5 mm thick sections. Reconstructed images are reviewed on [employer] computer in the coronal plane. FINDINGS: Portion of the thyroid visualized is normal. Appears to be a large hernia of the diaphragm. Stomach and loops of colon are present in the left tho racic base. There is a 7.0 x 6.8 cm consolidation with some air bronchograms along the lateral left lower lung fi eld. This was present previously and appears more prominent. Mass, recurrent pneumonia, and atelectas is could be considered. Emphysematous changes are present. No enlarged mediastinal or hilar adenopathy is evident. The ascending aorta diameter at the level o f the main pulmonary artery is 4.6 cm. The main pulmonary artery diameter at the bifurcation is 3.[address] sections are obtained through the upper abdomen. Some dense calcification is just under th e right diaphragm, series 201 image 45. This has benign appearance present previously. IMPRESSION: 1. Appears to be a large diaphragmatic hernia which contains loops of colon and stomach. 2. Adjacent to the herniated diaphragm compressive atelectasis, pneumonia or underlying mass may be p resent. Follow-up to clearing is recommended. 3. No displaced rib fractures identified. No pneumothorax evident.
--- NOTE | 2024-05-01 12:13 | CT ---
EXAMINATION TYPE: CT brain cspine wo con DATE OF EXAM: 05/01/2024 COMPARISON: 01/13/2023 HISTORY: Fall, trauma CT DLP: 1812.7 mGycm, Automated exposure control for dose reduction was used. CONTRAST: Patient injected with 0 mL of Isovue 300. CT of the brain is performed utilizing 3 mm thick sections through the posterior fossa and 3 mm thick sections through the remaining calvarium. Study is performed within 24 hours of arrival to the hospital. No abnormal hyperdensity is present to suggest an acute intracranial hemorrhage. No mass lesion is evident. No acute infarcts are evident. Ventricles and sulci are appropriate for the patient age. Paranasal sinuses and mastoid air cells within the [id number] are clear. IMPRESSIONS: 1. No acute intracranial process. Follow-up MRI can be performed as clinically indicated. CT cervical spine. COMPARISON: 01/13/2023 CT of the cervical spine is performed in the axial plane at 2 mm thick sections. Reconstructed image s in the coronal, and sagittal plane are reviewed on the computer. No acute fractures are evident. Vertebral body alignment is normal. There is loss of disc height and vacuum disc phenomenon C5-6. Vertebral body heights are preserved. No spinal canal stenosis is evident. No neural foraminal stenosis is evident. IMPRESSION: 1. No acute osseous abnormality cervical spine. 2. Degenerative disc changes with vacuum disc phenomenon at C5-6.
[2024-05-01 12:19] LABS: Basophils % (A) 0 %; Eosinophils # (A) 0.1 k/uL (0-0.7); Eosinophils % (A) 1 %; HCT 45.6 % (39.0-53.0); HGB 14.1 gm/dL (13.0-17.5); Hypochromasia Moderate; Lymphocytes # (A) 1.5 k/uL (1.0-4.8); Lymphocytes % (A) 12 %; MCH 31.1 pg (25.0-35.0); MCHC 30.9 g/dL (31.0-37.0); MCV 100.8 fL (80.0-100.0); Macrocytosis Slight; Mean Platelet Volume 12.3; Monocytes # (A) 0.7 k/uL (0-1.0); Monocytes % (A) 5 %; Neutrophils # (A) 9.7 k/uL (1.3-7.7); Neutrophils % (A) 80 %; Platelet Count 117 k/uL (150-450); RBC 4.53 m/uL (4.30-5.90); WBC 12.1 k/uL (3.8-10.6)
--- NOTE | 2024-05-01 12:23 | CT ---
EXAMINATION TYPE: CT thoracic spine wo con DATE OF EXAM: 05/01/2024 COMPARISON: None HISTORY: Fall, rib pain CT DLP: 624.2 mGycm Automated exposure control for dose reduction was used. Contrast: None Technique: Axial images 3 mm thick sections. Reconstructed images in the coronal and sagittal plane a re reviewed. FINDINGS: There is slight increased density within the T4 vertebral body. A discrete sclerotic lesion is not id entified. There is a compression deformity of T8. There is diffuse increased density through the T8 vertebral b nani. No posterior wall displacement is evident. No spinal canal stenosis is evident. There is some mild increased density within the inferior aspect of the T10 vertebral level. Some endp late change may be present. No posterior wall displacement is evident. IMPRESSION: 1. MILD SCLEROSIS THROUGHOUT T8, ANTERIOR T4, AND INFERIOR T10. 2. COMPRESSION DEFORMITY OF T8 AND INFERIOR ENDPLATE T10. NO POSTERIOR WALL DISPLACEMENT EVIDENT. NO SPINAL CANAL STENOSIS EVIDENT.
[2024-05-01 12:40] LABS: INR 1.2 (<1.2); Partial Thromboplastin Time 24.5 sec (22.0-30.0); Prothrombin Time 12.8 sec (10.0-12.5)
[2024-05-01 12:47] LABS: ALT 23 U/L (4-49); African American GFR (CKD) 30 (>60 ml/min/1.73 sqM); Albumin 3.9 g/dL (3.5-5.0); Alcohol <10 mg/dL; Anion Gap 4 mmol/L; Blood Urea Nitrogen 57 mg/dL (9-20); Calcium 8.7 mg/dL (8.4-10.2); Carbon Dioxide 29 mmol/L (22-30); Chloride 107 mmol/L (98-107); Glucose 89 mg/dL (74-99); Non-African American GFR(CKD) 26 (>60 ml/min/1.73 sqM); Sodium 140 mmol/L (137-145); Total Bilirubin 0.8 mg/dL (0.2-1.3); Total Protein 6.4 g/dL (6.3-8.2)
[2024-05-01 12:51] LABS: AST 34 U/L (17-59); Alkaline Phosphatase 90 U/L (38-126); Potassium 5.1 mmol/L (3.5-5.1)
[2024-05-01 12:57] LABS: Appearance,Urine Clear (Clear); Bilirubin,Urine Negative (Negative); Blood,Urine Negative (Negative); Color,Urine Yellow; Glucose,Urine (UA) Negative (Negative); Ketones,Urine Negative (Negative); Leukocyte Esterase,Urine Negative (Negative); Nitrite,Urine Negative (Negative); Protein,Urine Negative (Negative); Specific Gravity,Urine 1.018 (1.001-1.035); Urobilinogen,Urine <2.0 mg/dL (<2.0)
[2024-05-01 13:08] LABS: Amphetamine Screen,Urine Not Detected (NotDetected); Barbiturate Screen,Urine Not Detected (NotDetected); Benzodiazepines Screen,Urine Not Detected (NotDetected); Cocaine Screen,Urine Not Detected (NotDetected); Methadone Screen, Urine Not Detected (NotDetected); Opiate Screen,Urine Not Detected (NotDetected); Oxycodone Screen, Urine Not Detected (NotDetected); Phencyclidine Screen,Urine Not Detected (NotDetected); Tricyclic Antidepressant,Urine Not Detected (NotDetected); Urn Cannabinoid Scrn Detected (NotDetected)
[2024-05-01] MEDS: SODIUM CHLORIDE 0.9% 500 ML 500 ML IV STA (13:12)
[2024-05-01] MEDS: methylPREDNISolone SOD SUCCI 125 MG/2 ML VIAL IV STA (13:16)
[2024-05-01] MEDS ORDERED: NALOXONE 0.4 MG/ML 1 ML VIAL IV PRN (13:41)
[2024-05-01] MEDS: DOXYCYCLINE 100 MG in SODIUM CHLORIDE 0.9% 100 ML IVPB ONE (14:10)
--- NOTE | 2024-05-01 14:23 | ED ---
General Adult HPI - General Chief complaint: Fall Stated complaint: fall,copd/SOB/pain left side Time Seen by Provider: 05/01/24 10:50 Source: patient, EMS, RN notes reviewed, old records reviewed Mode of arrival: EMS Limitations: no limitations - History of Present Illness Initial comments: Patient is a 69-year-old male who presents emergency department after a fall on thinners. States he smoked marijuana last night felt lightheaded when he got up at 2 AM. States he fell on the ground. Unknown what he landed on. Did not lose consciousness. Did not hit his head. Is complaining of posterior right- sided rib pain. Denies any other acute complaints at this time. Presents for further evaluation. Is chronically on oxygen at home. States his blood pressure is also chronically soft. Denies any other acute complaints at this time. Patient is on blood thinners for atrial fibrillation. Also has a history of COPD, hypertension. - Related Data Home Medications Medication Instructions Recorded Confirmed Latanoprost/Pf [Latanoprost 0.005% 1 drop LEFT EYE HS 08/18/20 05/01/24 Eye Drop] Levothyroxine Sodium 125 mcg PO DAILY 08/18/20 05/01/24 Albuterol Sulfate [Albuterol 1 puff INHALATION RT-Q4H PRN 04/01/22 05/01/24 Sulfate Hfa] Apixaban [Eliquis] 5 mg PO BID@0900,1700 04/01/22 05/01/24 Aspirin EC [Ecotrin Low Dose] 81 mg PO DAILY 04/01/22 05/01/24 Loratadine [Claritin] 10 mg PO DAILY 04/01/22 05/01/24 Fluticasone/Vilanterol [Breo 1 puff INHALATION RT-DAILY 01/11/23 05/01/24 Ellipta 200-25 Mcg Inhaler] OLANZapine [ZyPREXA] 20 mg PO HS 01/11/23 05/01/24 Pantoprazole Sodium [Protonix] 40 mg PO DAILY 01/11/23 05/01/24 Tiotropium [place] [Spiriva 1 puff INHALATION RT-DAILY 01/11/23 05/01/24 Handihaler] Albuterol Nebulized [Ventolin 2.5 mg INHALATION RT-Q6H 03/01/24 05/01/24 Nebulized] Amiodarone [Cordarone] 100 mg PO DAILY 03/01/24 05/01/24 Budesonide/Formoterol Fumarate 2 puff INHALATION RT-BID 03/01/24 05/01/24 [Symbicort 160-4.5 Mcg Inhaler] Gabapentin [Neurontin] 100 mg PO TID@0900,1200,2100 03/01/24 05/01/24 PARoxetine HCL [Paxil] 30 mg PO DAILY 03/01/24 05/01/24 Furosemide [Lasix] 40 mg PO DAILY 05/01/24 05/01/24 Ipratropium-Albuterol Nebulize 3 ml INHALATION RT-QID PRN 05/01/24 05/01/24 [Duoneb 0.5 mg-3 mg/3 ml Soln] Ketorolac 0.5% Ophth Soln [Acular 1 drops LEFT EYE QID 05/01/24 05/01/24 0.5%] Metoprolol Tartrate [Lopressor] 100 mg PO BID@0900,1700 05/01/24 05/01/24 Midodrine [ProAmatine] 5 mg PO TID@0900,1200,2100 05/01/24 05/01/24 Minocycline [Minocin] 50 mg PO BID@0900,1700 05/01/24 05/01/24 PARoxetine HCL [Paxil] 10 mg PO DAILY 05/01/24 05/01/24 Tamsulosin [Flomax] 0.4 mg PO DAILY 05/01/24 05/01/24 lisinopriL [Zestril] 2.5 mg PO BID@0900,1700 05/01/24 05/01/24 Allergies Allergy/AdvReac Type Severity Reaction Status Date / Time No Known Allergies Allergy Verified 05/01/24 13:40 Review of Systems ROS Statement: Those systems with pertinent positive or pertinent negative responses have been documented in the HPI. Review of Systems: CONST: Denies fever EYES: Denies blurry vision ENT: Denies nasal congestion C/V: Denies Chest pain RESP: Endorses productive cough of green mucus GI: Denies abdominal pain : Denies dysuria SKIN: Denies rash. MSK: Endorses posterior right rib pain NEURO: Denies headache ROS Other: All systems not noted in ROS Statement are negative. Past Medical History Past Medical History: Atrial Fibrillation, COPD, Eye Disorder, Hyperlipidemia, Hypertension, Osteoarthritis (OA), Thyroid Disorder Additional Past Medical History / Comment(s): Sober 1979, hiatal hernia, glaucoma left eye, possible stroke behind left eye per opthamologist. arthritis in back,cystic acne on back to see outreach librarian. History of Any Multi-Drug Resistant Organisms: None Reported Past Surgical History: Heart Catheterization Additional Past Surgical History / Comment(s): HYDROCELE surg. x2, hemorrhoidectomy, colonoscopy, cataract surgery tamara eyes Past Anesthesia/Blood Transfusion Reactions: No Reported Reaction Additional Past Anesthesia/Blood Transfusion Reaction / Comment(s): no blood transfusions Past Psychological History: Anxiety, Bipolar, Panic Disorder Smoking Status: Current every day smoker Past Alcohol Use History: None Reported Past Drug Use History: Marijuana - Past Family History Mother Family Medical History: Diabetes Mellitus Father Family Medical History: Coronary Artery Disease (CAD) Sister(s) Family Medical History: Coronary Artery Disease (CAD), Diabetes Mellitus, Hypertension General Exam - General Exam Comments Initial Comments: General: Appears in no acute distress. HEAD: Normal with no signs of head trauma. Negative Vidal sign. Negative raccoon eyes. EYES: PERRLA, EOMI, conjunctiva normal, no discharge. ENT: Hearing grossly intact, normal oropharynx. RESPIRATORY: Bilateral end expiratory wheezing. No significant hypoxia on baseline oxygen. No evidence of flail chest. C/V: Irregular rate and rhythm. S1 and S2 auscultated, no edema, peripheral pulses 2+ and intact throughout ABD: Abd is soft, nontender, nondistended EXT: Normal range of motion, no obvious deformity. No midline cervical, lumbar spine tenderness to palpation. No significant midline thoracic spine tenderness to palpation. Tenderness palpation of the posterior right ribs. Pelvis is stable. No flail chest on exam. SKIN: No rashes or lesions observed on exposed skin. NEURO: Alert and oriented x 4. GCS of 15. Limitations: no limitations Course Vital Signs 05/01/24 05/01/24 05/01/24 10:35 10:41 10:45 Temperature 97.5 F L Pulse Rate 80 86 Respiratory 18 20 18 Rate Blood Pressure 87/68 O2 Sat by Pulse 91 L 92 L Oximetry 05/01/24 05/01/24 05/01/24 11:00 11:38 11:47 Temperature Pulse Rate 84 74 84 Respiratory 20 18 Rate Blood Pressure 81/52 115/90 O2 Sat by Pulse 94 L 97 Oximetry 05/01/24 05/01/24 12:00 13:00 Temperature Pulse Rate 87 90 Respiratory 20 20 Rate Blood Pressure 115/90 103/60 O2 Sat by Pulse 93 L 95 Oximetry Medical Decision Making - Medical Decision Making Was pt. sent in by a medical professional or institution (, PA, IP/MOSAIC TECHNICIAN, urgent care, hospital, or fdc...) When possible be specific @ -No Did you speak to anyone other than the patient for history (EMS, parent, family, police, friend...)? What history was obtained from this source @ -No Did you review nursing and triage notes (agree or disagree)? Why? @ -I reviewed and agree with nursing and triage notes Were old charts reviewed (outside hosp., previous admission, EMS record, old EKG, old radiological studies, urgent care reports/EKG's, fdc records)? Report findings @ -Old charts reviewed for comparison of renal function. Current renal function studies significantly worse for the patient. Differential Diagnosis (chest pain, altered mental status, abdominal pain women, abdominal pain men, vaginal bleeding, weakness, fever, dyspnea, syncope, headache, dizziness, GI bleed, back pain, seizure, CVA, palpatations, mental health, musculoskeletal)? @ -Differential Musculoskeletal Muscular strain, contusion, ligament sprain, fracture, arthritis, septic arthritis, bursitis, cellulitis, muscle spasm, nerve compression, DVT, arterial occlusion, herpes zoster, electrolyte abnormality, tumor.... This is not meant to be in all inclusive list EKG interpreted by me (3pts min.). @ -As above X-rays interpreted by me (1pt min.). @ -Chest x-ray and pelvis x-ray reveals no obvious acute cardiopulmonary process. Possible left lower lobe pneumonia versus compressive atelectasis from large hiatal hernia which is chronic. CT interpreted by me (1pt min.). @ -CT brain, cervical spine negative for any acute traumatic injury. Thoracic spine CT does show some compressive fractures which patient states are chronic. CT chest reveals no evidence of rib fracture. Does show the compressive atelectasis and large hiatal hernia on the left. U/S interpreted by me (1pt. min.). @ -None done What testing was considered but not performed or refused? (CT, X-rays, U/S, labs)? Why? @ -None What meds were considered but not given or refused? Why? @ -None Did you discuss the management of the patient with other professionals (professionals i.e. , PA, IP/MOSAIC TECHNICIAN, lab, RT, psych nurse, social worker clinical, keysmith, teacher, founder and chief executive officer, manager case)? Give summary @ -No Was smoking cessation discussed for >3mins.? @ -No Was critical care preformed (if so, how long)? @ -No Were there social determinants of health that impacted care today? How? (Homelessness, low income, unemployed, alcoholism, drug addiction, transportation, low edu. Level, literacy, decrease access to med. care, correction, rehab)? @ -No Was there de-escalation of care discussed even if they declined (Discuss DNR or withdrawal of care, Hospice)? DNR status @ -No What co-morbidities impacted this encounter? (DM, HTN, Smoking, COPD, CAD, Cancer, CVA, ARF, Chemo, Hep., AIDS, mental health diagnosis, sleep apnea, morbid obesity)? @ -None Was patient admitted / discharged? Hospital course, mention meds given and route, prescriptions, significant lab abnormalities, going to OR and other pertinent info. @ -Patient presents as a fall on blood thinners. Fell from standing. Does not meet criteria for trauma activation. Fall occurred approximately 10 hours ago. Will obtain basic labs as well as imaging. Patient in agreement this plan. Vital signs within acceptable limits with soft blood pressure which patient states is chronic. He is slightly wheezy with a productive cough and we will treat his COPD with steroids, breathing treatment. Imaging negative for any obvious acute traumatic injury. Does show thoracic spine compression fractures but patient states these are old. Labs remarkable for slight leukocytosis of 12. Patient does have an YUNIER of unknown etiology with a BUN of 57 and creatinine of 2.51 which is elevated compared to previous. Urine unremarkable. On reevaluation, patient is feeling improved. Will continue treatment of COPD and bronchitis. Mild COPD exacerbation. No significant respiratory distress. Steroids, breathing treatments, antibiotics initiated. I did recommend admission for the YUNIER. Gentle fluid hydration will be initiated as patient does have a history of CHF and is on diuretics. Patient in agreement this plan. I spoke with the admitting physician, Dr. Sanon who accepted the admission. Was in agreement the plan. Recommended addition of creatinine kinase at this time. Urine does not show any evidence of urine blood, but we will obtain creatinine kinase. Patient in agreement this plan. Undiagnosed new problem with uncertain prognosis? @ -No Drug Therapy requiring intensive monitoring for toxicity (Heparin, Nitro, Insulin, Cardizem)? @ -No Were any procedures done? @ -No Diagnosis/symptom? @ -Fall, rib contusion, COPD, bronchitis, YUNIER Acute, or Chronic, or Acute on Chronic? @ -Acute Uncomplicated (without systemic symptoms) or Complicated (systemic symptoms)? @ -Complicated Side effects of treatment? @ -No Exacerbation, Progression, or Severe Exacerbation? @ -No Poses a threat to life or bodily function? How? (Chest pain, [place], [place], pneumonia, PE, COPD, DKA, ARF, appy, cholecystitis, CVA, Diverticulitis, Homicidal, Suicid al, threat to staff... and all critical care pts) @ -Yes - Lab Data Result diagrams: 05/01/24 11:53 05/01/24 11:53 Lab Results 05/01/24 05/01/24 05/01/24 Range/Units 11:48 11:53 11:53 WBC 12.1 H (3.8-10.6) k/uL RBC 4.53 (4.30-5.90) m/uL Hgb 14.1 (13.0-17.5) gm/dL Hct 45.6 (39.0-53.0) % MCV 100.8 H (80.0-100.0) fL MCH 31.1 (25.0-35.0) pg MCHC 30.9 L (31.0-37.0) g/dL RDW 15.0 (11.5-15.5) % Plt Count 117 L (150-450) k/uL MPV 12.3 Neutrophils % 80 % Lymphocytes % 12 % Monocytes % 5 % Eosinophils % 1 % Basophils % 0 % Neutrophils # 9.7 H (1.3-7.7) k/uL Lymphocytes # 1.5 (1.0-4.8) k/uL Monocytes # 0.7 (0-1.0) k/uL Eosinophils # 0.1 (0-0.7) k/uL Basophils # 0.0 (0-0.2) k/uL Hypochromasia Moderate Macrocytosis Slight PT 12.8 H (10.0-12.5) sec INR 1.2 H (<1.2) APTT 24.5 (22.0-30.0) sec Sodium (137-145) mmol/L Potassium (3.5-5.1) mmol/L Chloride (98-107) mmol/L Carbon Dioxide (22-30) mmol/L Anion Gap mmol/L BUN (9-20) mg/dL Creatinine (0.66-1.25) mg/dL Est GFR (CKD-EPI)AfAm (>60 ml/min/1.73 sqM) Est GFR (CKD-EPI)NonAf (>60 ml/min/1.73 sqM) Glucose (74-99) mg/dL Calcium (8.4-10.2) mg/dL Total Bilirubin (0.2-1.3) mg/dL AST (17-59) U/L ALT (4-49) U/L Alkaline Phosphatase (38-126) U/L Total Protein (6.3-8.2) g/dL Albumin (3.5-5.0) g/dL Urine Color Urine Appearance (Clear) Urine pH (5.0-8.0) Ur Specific [place] (1.001-1.035) Urine Protein (Negative) Urine Glucose (UA) (Negative) Urine Ketones (Negative) Urine Blood (Negative) Urine Nitrite (Negative) Urine Bilirubin (Negative) Urine Urobilinogen (<2.0) mg/dL Ur Leukocyte Esterase (Negative) Urine Opiates Screen (NotDetected) Ur Oxycodone Screen (NotDetected) Urine Methadone Screen (NotDetected) Ur Barbiturates Screen (NotDetected) U Tricyclic Antidepress (NotDetected) Ur Phencyclidine Scrn (NotDetected) Ur Amphetamines Screen (NotDetected) U Methamphetamines Scrn (NotDetected) U Benzodiazepines Scrn (NotDetected) Urine Cocaine Screen (NotDetected) U Marijuana (THC) Screen (NotDetected) Serum Alcohol mg/dL Blood Type B Negative Blood Type Confirm Blood Type Recheck No Previous Record Bld Type Recheck Status CABO Indicated Antibody Screen NEGATIVE Spec Expiration Date 05/04/2024234705/01/24 05/01/24 05/01/24 Range/Units 11:53 11:53 12:51 WBC (3.8-10.6) k/uL RBC (4.30-5.90) m/uL Hgb (13.0-17.5) gm/dL Hct (39.0-53.0) % MCV (80.0-100.0) fL MCH (25.0-35.0) pg MCHC (31.0-37.0) g/dL RDW (11.5-15.5) % Plt Count (150-450) k/uL MPV Neutrophils % % Lymphocytes % % Monocytes % % Eosinophils % % Basophils % % Neutrophils # (1.3-7.7) k/uL Lymphocytes # (1.0-4.8) k/uL Monocytes # (0-1.0) k/uL Eosinophils # (0-0.7) k/uL Basophils # (0-0.2) k/uL Hypochromasia Macrocytosis PT (10.0-12.5) sec INR (<1.2) APTT (22.0-30.0) sec Sodium 140 (137-145) mmol/L Potassium 5.1 (3.5-5.1) mmol/L Chloride 107 (98-107) mmol/L Carbon Dioxide 29 (22-30) mmol/L Anion Gap 4 mmol/L BUN 57 H (9-20) mg/dL Creatinine 2.51 H (0.66-1.25) mg/dL Est GFR (CKD-EPI)AfAm 30 (>60 ml/min/1.73 sqM) Est GFR (CKD-EPI)NonAf 26 (>60 ml/min/1.73 sqM) Glucose 89 (74-99) mg/dL Calcium 8.7 (8.4-10.2) mg/dL Total Bilirubin 0.8 (0.2-1.3) mg/dL AST 34 (17-59) U/L ALT 23 (4-49) U/L Alkaline Phosphatase 90 (38-126) U/L Total Protein 6.4 (6.3-8.2) g/dL Albumin 3.9 (3.5-5.0) g/dL Urine Color Yellow Urine Appearance Clear (Clear) Urine pH 5.0 (5.0-8.0) Ur Specific [place] 1.018 (1.001-1.035) Urine Protein Negative (Negative) Urine Glucose (UA) Negative (Negative) Urine Ketones Negative (Negative) Urine Blood Negative (Negative) Urine Nitrite Negative (Negative) Urine Bilirubin Negative (Negative) Urine Urobilinogen <2.0 (<2.0) mg/dL Ur Leukocyte Esterase Negative (Negative) Urine Opiates Screen Not Detected (NotDetected) Ur Oxycodone Screen Not Detected (NotDetected) Urine Methadone Screen Not Detected (NotDetected) Ur Barbiturates Screen Not Detected (NotDetected) U Tricyclic Antidepress Not Detected (NotDetected) Ur Phencyclidine Scrn Not Detected (NotDetected) Ur Amphetamines Screen Not Detected (NotDetected) U Methamphetamines Scrn Not Detected (NotDetected) U Benzodiazepines Scrn Not Detected (NotDetected) Urine Cocaine Screen Not Detected (NotDetected) U Marijuana (THC) Screen Detected H (NotDetected) Serum Alcohol <10 mg/dL Blood Type Blood Type Confirm B Negative Blood Type Recheck Bld Type Recheck Status Antibody Screen Spec Expiration Date - EKG Data -: EKG Interpreted by Me EKG Comments: 12-lead Electrocardiogram Interpretation Note EKG was reviewed and interpreted by myself. 12-lead ECG performed at 1140 is interpreted by me as revealing atrial fibrillation at a rate of 79 beats per minute. [place] is rightward deviated. QRS duration is 97 ms, QTc is 377 ms.. There were no ST or T wave abnormalities to suggest myocardial ischemia or injury. R wave progression across the precordium was satisfactory. By my interpretation this EKG is non-diagnostic for acute ischemia. Disposition Clinical Impression: Fall, Contusion of rib, YUNIER (acute kidney injury), COPD (chronic obstructive pulmonary disease), Bronchitis Disposition: ADMITTED IP TO THIS HOSP Condition: Stable Referrals: Josue Villela MD [Primary Care Provider] - 1-2 days Time of Disposition: 13:30
[2024-05-01] MEDS ORDERED: ALBUTEROL NEBULIZED 2.5 MG/3 ML INHALATION PRN (14:27)
[2024-05-01] MEDS: MIDODRINE 5 MG TAB PO STA (14:59)
[2024-05-01] MEDS: IPRATROPIUM-ALBUTEROL 3 ML NEB INHALATION SCH (16:01)
[2024-05-01] MEDS: METOPROLOL TARTRATE 50 MG TAB PO SCH (17:35)
[2024-05-01] MEDS: MIDODRINE 5 MG TAB PO SCH (17:35)
[2024-05-01] MEDS: APIXABAN 5 MG TAB PO SCH (17:35)
--- NOTE | 2024-05-01 18:53 | P.HPIM ---
History of Present Illness H&P Date: 05/01/24 Chief Complaint: Fall This 69-year-old patient, follows with Dr. Alvin Villela. Chronic stable medical condition include atrial fibrillation, hypertension, hyperlipidemia, ost eoarthritis, hypothyroid arthritis in the back bipolar. Patient continues to smoke. She presented to the ER taking a fall and he fell on his back on the right side against a wall. Patient continues to smoke cigarettes. Also does marijuana. Has been coughing some wheezing short of breath. Also felt lightheaded. Appetite is good. Has 3 L of oxygen at home. Wheezing. Some sputum production. Review of systems: GEN.: Tired EYES: None HEENT: None NECK: None RESPIRATORY: As above CARDIOVASCULAR: None GASTROINTESTINAL: None GENITOURINARY: None MUSCULOSKELETAL: Back pain LYMPHATICS: None HEMATOLOGICAL: None PSYCHIATRY: None NEUROLOGICAL: None Social history: Lives with his sister and [id number]. Was not present from 1978 through 2018. Has been sober with alcohol since 1978. Has been smoking since a teenager now down to 5 cigarettes a day. Does smoke marijuana. Physical examination: VITAL SIGNS: Afebrile, 86, 22, 92/75, 92% on oxygen GENERAL: In bed, short of breath cough EYES: Pupils equal. Conjunctiva normal. HEENT: External appearance of nose and ears normal, oral cavity grossly normal. NECK: JVD is able to assess; masses not palpable. HEART: First and second heart sounds are normal; edema present LUNGS: Respiratory rate increased; decreased breath sounds , coarse breath sounds, wheezing ABDOMEN: Soft, nontender, liver spleen not palpable, no masses palpable. PSYCH: Alert oriented x 3 mood affect anxious l MUSCULOSKELETAL:No Clubbing/cyanosis;muscles-grossly intact. Evidence of OA. Tender over the posterior chest wall INVESTIGATIONS, reviewed in the clinical context: May 09: White count 12.1 hemoglobin 14.1 platelets 117 sodium 140 potassium 5.1 BUN 57 creatinine 2.519 UA: Negative Urine drug screen negative EKG tracing personally reviewed by me-atrial flutter fibrillation rate 79 Chest x-ray film personally reviewed by me-possible left lung contusion/atelectasis CT chest without contrast: 7 x 6.88 consolidation with some air bronchograms along the lateral left lower lobe.. Large diaphragmatic hernia. Loops of colon and stomach. No displaced rib fractures. Head cervical spine CT scan: Some DJD changes but no fracture CT thoracic spine without contrast: Compression deformity of T8 and inferior endplate of T10 Previous labs: Creatinine 1.21 on March 17, 2024 Assessment plan: -Acute severe COPD exacerbation in a current smoker DuoNeb every 4,peroformist IV Solu-Medrol, Pulmicort nebulizer -Possible left lung contusion secondary to fall. Consult pulmonary. Incentive spirometry. -Compression deformity of T8 10 inferior endplate of T10. Note patient had a fall Consult Dr. Sheets -Acute hypoxic and hypercapnic respiratory failure secondary to COPD exacerbation: Much improved On BiPAP.-50%, used for 2 hours overnight. Down to 3 L - chronic hypoxic respiratory failure secondary to COPD On 3 days oxygen at home -Persistent atrial fibrillation flutter, currently rate controlled Amiodarone. Eliquis. Lopressor i 100 g twice daily Being followed by cardiology -Acute kidney injury likely ATN, Creatinine 1.21 on March 17, 2024 -Chronic kidney disease with creatinine of 1.21 on March 17, 2024 Renal ultrasound - Chronic congestive heart failure from systolic/diastolic dysfunction EF 45-50%- -History of cardiac arrest/pulseless electrical activity in January 2023 -Chronic nicotine dependence, cigarette smoker Nicotine patch -BPH with bladder outflow obstruction -Chronic hypertension On midodrine -Hypothyroid Levothyroxine 125 g a day -Essential hypertension . Lopressor -Bipolar disorder Zyprexa 20 mg daily at bedtime. Paxil. -Full code Discussed with patient. Given the complexity and severity of patient's condition expect the patient to be in the hospital at least for 2 overnights Past Medical History Past Medical History: Atrial Fibrillation, COPD, Eye Disorder, Hyperlipidemia, Hypertension, Osteoarthritis (OA), Thyroid Disorder Additional Past Medical History / Comment(s): Sober 1978, hiatal hernia, glaucoma left eye, possible stroke behind left eye per opthamologist. arthritis in back,cystic acne on back to see rat culturist. History of Any Multi-Drug Resistant Organisms: None Reported Past Surgical History: Heart Catheterization Additional Past Surgical History / Comment(s): HYDROCELE surg. x2, hemorrhoidectomy, colonoscopy, cataract surgery tamara eyes Past Anesthesia/Blood Transfusion Reactions: No Reported Reaction Additional Past Anesthesia/Blood Transfusion Reaction / Comment(s): no blood transfusions Past Psychological History: Anxiety, Bipolar, Panic Disorder Smoking Status: Current every day smoker Past Alcohol Use History: None Reported Past Drug Use History: Marijuana - Past Family History Mother Family Medical History: Diabetes Mellitus Father Family Medical History: Coronary Artery Disease (CAD) Sister(s) Family Medical History: Coronary Artery Disease (CAD), Diabetes Mellitus, Hypertension Medications and Allergies Home Medications Medication Instructions Recorded Confirmed Type Latanoprost/Pf [Latanoprost 0.005% 1 drop LEFT EYE HS 08/18/20 05/01/24 History Eye Drop] Levothyroxine Sodium 125 mcg PO DAILY 08/18/20 05/01/24 History Albuterol Sulfate [Albuterol 1 puff INHALATION RT-Q4H PRN 04/01/22 05/01/24 History Sulfate Hfa] Apixaban [Eliquis] 5 mg PO BID@0900,1700 04/01/22 05/01/24 History Aspirin EC [Ecotrin Low Dose] 81 mg PO DAILY 04/01/22 05/01/24 History Loratadine [Claritin] 10 mg PO DAILY 04/01/22 05/01/24 History Fluticasone/Vilanterol [Breo 1 puff INHALATION RT-DAILY 01/11/23 05/01/24 History Ellipta 200-25 Mcg Inhaler] OLANZapine [ZyPREXA] 20 mg PO HS 01/11/23 05/01/24 History Pantoprazole Sodium [Protonix] 40 mg PO DAILY 01/11/23 05/01/24 History Tiotropium [place] [Spiriva 1 puff INHALATION RT-DAILY 01/11/23 05/01/24 History Handihaler] Albuterol Nebulized [Ventolin 2.5 mg INHALATION RT-Q6H 03/01/24 05/01/24 History Nebulized] Amiodarone [Cordarone] 100 mg PO DAILY 03/01/24 05/01/24 History Budesonide/Formoterol Fumarate 2 puff INHALATION RT-BID 03/01/24 05/01/24 History [Symbicort 160-4.5 Mcg Inhaler] Gabapentin [Neurontin] 100 mg PO TID@0900,1200,2100 03/01/24 05/01/24 History PARoxetine HCL [Paxil] 30 mg PO DAILY 03/01/24 05/01/24 History Furosemide [Lasix] 40 mg PO DAILY 05/01/24 05/01/24 History Ipratropium-Albuterol Nebulize 3 ml INHALATION RT-QID PRN 05/01/24 05/01/24 History [Duoneb 0.5 mg-3 mg/3 ml Soln] Ketorolac 0.5% Ophth Soln [Acular 1 drops LEFT EYE QID 05/01/24 05/01/24 History 0.5%] Metoprolol Tartrate [Lopressor] 100 mg PO BID@0900,1700 05/01/24 05/01/24 History Midodrine [ProAmatine] 5 mg PO TID@0900,1200,2100 05/01/24 05/01/24 History Minocycline [Minocin] 50 mg PO BID@0900,1700 05/01/24 05/01/24 History PARoxetine HCL [Paxil] 10 mg PO DAILY 05/01/24 05/01/24 History Tamsulosin [Flomax] 0.4 mg PO DAILY 05/01/24 05/01/24 History lisinopriL [Zestril] 2.5 mg PO BID@0900,1700 05/01/24 05/01/24 History Allergies Allergy/AdvReac Type Severity Reaction Status Date / Time No Known Allergies Allergy Verified 05/01/24 13:40 Physical Exam Vitals: Vital Signs Temp Pulse Resp BP Pulse Ox 05/01/24 18:30 66 18 93/69 97 05/01/24 17:00 103 H 22 94/79 92 L 05/01/24 16:12 91 05/01/24 16:02 90 05/01/24 16:00 86 22 92/75 92 L 05/01/24 15:00 86 22 92/63 94 L 05/01/24 14:00 80 20 91/56 94 L 05/01/24 13:00 90 20 103/60 95 05/01/24 12:00 87 20 115/90 93 L 05/01/24 11:47 84 18 115/90 97 05/01/24 11:38 74 05/01/24 11:00 84 20 81/52 94 L 05/01/24 10:45 18 05/01/24 10:41 86 20 92 L 05/01/24 10:35 97.5 F L 80 18 87/68 91 L Intake and Output 05/01/24 05/01/24 05/01/24 06:59 14:59 22:59 Other: Weight 108.862 kg Results CBC & Chem 7: 05/01/24 11:53 05/01/24 11:53 Labs: Abnormal Lab Results - Last 24 Hours (Table) 05/01/24 05/01/24 05/01/24 Range/Units 11:53 11:53 11:53 WBC 12.1 H (3.8-10.6) k/uL MCV 100.8 H (80.0-100.0) fL MCHC 30.9 L (31.0-37.0) g/dL Plt Count 117 L (150-450) k/uL Neutrophils # 9.7 H (1.3-7.7) k/uL PT 12.8 H (10.0-12.5) sec INR 1.2 H (<1.2) BUN 57 H (9-20) mg/dL Creatinine 2.51 H (0.66-1.25) mg/dL U Marijuana (THC) Screen (NotDetected) 05/01/24 Range/Units 12:51 WBC (3.8-10.6) k/uL MCV (80.0-100.0) fL MCHC (31.0-37.0) g/dL Plt Count (150-450) k/uL Neutrophils # (1.3-7.7) k/uL PT (10.0-12.5) sec INR (<1.2) BUN (9-20) mg/dL Creatinine (0.66-1.25) mg/dL U Marijuana (THC) Screen Detected H (NotDetected)
[2024-05-01] MEDS: BUDESONIDE 1 MG/2 ML NEBU INHALATION SCH (20:00)
[2024-05-01] MEDS ORDERED: SYMBICORT 160-4.5 MCG INHALER INHALATION SCH (20:00)
[2024-05-01] MEDS: FORMOTEROL FUMARATE 20 MCG/2 ML NEBU INHALATION SCH (20:03)
[2024-05-01] MEDS: GABAPENTIN 100 MG CAP PO SCH (20:25)
[2024-05-01] MEDS: methylPREDNISolone SOD SUCCI 40 MG/ML 1 ML VIAL IV SCH (20:26)
[2024-05-01] MEDS: NICOTINE 7MG/24HR PATCH TRANSDERM SCH (20:27)
[2024-05-01] MEDS: OLANZapine 10 MG TAB PO SCH (20:37)
[2024-05-01] MEDS: DOXYCYCLINE 100 MG in SODIUM CHLORIDE 0.9% 100 ML IVPB SCH (20:38)
--- NOTE | 2024-05-01 20:50 | US ---
EXAMINATION TYPE: US kidneys/renal and bladder DATE OF EXAM: 05/01/2024 COMPARISON: NONE CLINICAL INDICATION: Male, 69 years old with history of Evaluate for CKD; CKD limited due to bowel ga s. EXAM MEASUREMENTS: Right Kidney: 10.3 x 5.7 x 6.0 cm Left Kidney: 11.4 x 5.3 x 5.3 cm Right Kidney: No hydronephrosis or masses seen Left Kidney: No hydronephrosis or masses seen Bladder: Anechoic Bilateral Jets seen: yes There is no evidence for hydronephrosis at this point in time. No nephrolithiasis is seen. No jia s are identified. The urinary bladder is anechoic. Bilateral ureteral jets are seen. IMPRESSION: No evidence of obstructive uropathy or significant renal abnormality.
[2024-05-01] MEDS ORDERED: MIDODRINE 5 MG TAB PO SCH (21:00)
[2024-05-01] MEDS: LATANOPROST 0.005% OPHTH DROPS 2.5 ML BTL LEFT EYE SCH (21:59)
[2024-05-01] MEDS: KETOROLAC 0.5% OPHTH DROPS 5 ML BTL LEFT EYE SCH (21:59)
[2024-05-01] MEDS: guaiFENesin 600 MG TABLET.ER PO SCH (21:59)
[2024-05-02] MEDS: PANTOPRAZOLE 40 MG TABLET PO SCH (06:22)
[2024-05-02] MEDS: LEVOTHYROXINE 125 MCG TAB PO SCH (06:22)
[2024-05-02 07:37] LABS: Anion Gap 3 mmol/L; Blood Urea Nitrogen 42 mg/dL (9-20); Carbon Dioxide 30 mmol/L (22-30); Chloride 109 mmol/L (98-107); Glucose 111 mg/dL (74-99); Potassium 4.1 mmol/L (3.5-5.1); Sodium 142 mmol/L (137-145)
[2024-05-02 07:38] LABS: ALT 22 U/L (4-49); AST 26 U/L (17-59); African American GFR (CKD) 53 (>60 ml/min/1.73 sqM); Albumin/Globulin Ratio 1.4; Alkaline Phosphatase 76 U/L (38-126); Basophils % (A) 0 %; Calcium 8.6 mg/dL (8.4-10.2); Eosinophils % (A) 0 %; Globulin 2.2 g/dL; HCT 40.6 % (39.0-53.0); HGB 12.5 gm/dL (13.0-17.5); Hypochromasia Slight; Lymphocytes % (A) 7 %; MCH 29.8 pg (25.0-35.0); MCHC 30.7 g/dL (31.0-37.0); MCV 97.1 fL (80.0-100.0); Mean Platelet Volume 13.7; Monocytes # (A) 0.7 k/uL (0-1.0); Monocytes % (A) 5 %; Neutrophils # (A) 12.4 k/uL (1.3-7.7); Neutrophils % (A) 87 %; Non-African American GFR(CKD) 46 (>60 ml/min/1.73 sqM); Platelet Count 111 k/uL (150-450); RBC 4.18 m/uL (4.30-5.90); RDW 14.9 % (11.5-15.5); Total Bilirubin 0.6 mg/dL (0.2-1.3); Total Protein 5.2 g/dL (6.3-8.2); WBC 14.2 k/uL (3.8-10.6)
[2024-05-02] MEDS ORDERED: SYMBICORT 160-4.5 MCG INHALER INHALATION SCH (08:00)
[2024-05-02] MEDS ORDERED: IPRATROPIUM 0.5 MG/2.5 ML NEBU INHALATION SCH (08:00)
[2024-05-02] MEDS: TAMSULOSIN 0.4 MG CAP.ER.24H PO SCH (08:34)
[2024-05-02] MEDS: ASPIRIN 81 MG PO SCH (08:34)
[2024-05-02] MEDS: AMIODARONE 100 MG TAB PO SCH (08:35)
[2024-05-02] MEDS: LORATADINE 10 MG TAB PO SCH (08:35)
[2024-05-02] MEDS: PARoxetine 20 MG TAB PO SCH (08:36)
[2024-05-02 08:57] LABS: Large Platelets Present
[2024-05-02] MEDS ORDERED: PARoxetine 10 MG TAB PO SCH (09:00)
[2024-05-02] MEDS ORDERED: FUROSEMIDE 40 MG TAB PO SCH (09:00)
--- NOTE | 2024-05-02 11:48 | P.CNPUL ---
History of Present Illness Consult date: 05/02/24 Requesting physician: Олег Sanon Reason for consult: COPD Chief complaint: Lower extremity edema, fall History of present illness: This is a 69-year-old male patient with a known history of chronic oxygen dependent COPD, hypercapnic respiratory failure, previous episode of in-hospital cardiac arrest with ventilatory dependent respiratory failure and encephalopathy in January 2023, chronic diastolic congestive heart failure, large hiatal hernia, chronic and ongoing tobacco dependence, chronic atrial fibrillation anticoagulated with Eliquis, hypertension, hyperlipidemia, hypothyroidism, bi polar disorder, anxiety/depression, marijuana use. He presented to the emergency room here yesterday after sustaining a fall at home. He admitted to using marijuana the night before then he got up approximately 2:00 in the morning and fell to the ground. He also felt he hit his left side of his back on the corner of the wall. He denied hitting his head. He denied loss of consciousness. Chest x-ray reveals a left lower lobe infiltrate or atelectasis. Fixed hiatal hernia. Right lung is clear. CT scan of the chest reveals a large diaphragmatic hernia which contains a loop of colon and stomach. Adjacent to the herniated diaphragm is compressive atelectasis. No displaced rib fractures noted. No pneumothorax. CT scan of the brain revealed no acute intracranial process. He is seen today in consultation on the regular medical floor. He is resting fairly comfortably in bed. Awake and alert in no acute distress. He denies any worsening shortness of breath, cough or congestion. He feels his COPD is stable. He is maintaining O2 saturations in the 90s on 2 L/min per nasal cannula. He is afebrile. Hemodynamically stable. White count 14.2. Hemoglobin 12.5. Platelets 111. Sodium 142. Potassium 4.1. Bicarb 30. BUN 42. Creatinine 1.54. Glucose 111. Urine drug screen positive for marijuana. Review of Systems REVIEW OF SYSTEMS: CONSTITUTIONAL: Denies any recent significant weight loss or weight gain. EYES: Denies change in vision. EARS, NOSE, MOUTH, THROAT: Denies headaches, denies sore throat. CARDIOVASCULAR: Denies chest pain, palpitations or syncopal episodes. RESPIRATORY: Denies shortness of breath, cough, congestion or hemoptysis. GASTROINTESTINAL: Denies change in appetite, denies abdominal pain GENITOURINARY: Denies hematuria, denies infections. MUSKULOSKELETAL: Fall with subsequent back pain, positive for swelling. INTEGUMENTARY: Denies rash, denies eczema. NEUROLOGICAL: Denies recent memory loss, no recent seizure activity. PSYCHIATRIC: Denies anxiety, denies depression. HEMATOLOGIC/LYMPHATIC: Denies anemia, denies enlarged lymph nodes. Past Medical History Past Medical History: Atrial Fibrillation, COPD, Eye Disorder, Hyperlipidemia, Hypertension, Osteoarthritis (OA), Thyroid Disorder Additional Past Medical History / Comment(s): Sober 1978, hiatal hernia, glaucoma left eye, possible stroke behind left eye per opthamologist. arthritis in back,cystic acne on back to see vp ancillary. History of Any Multi-Drug Resistant Organisms: None Reported Past Surgical History: Heart Catheterization Additional Past Surgical History / Comment(s): hemorrhoidectomy, colonoscopy, cataract surgery tamara eyes Past Anesthesia/Blood Transfusion Reactions: No Reported Reaction Additional Past Anesthesia/Blood Transfusion Reaction / Comment(s): no blood transfusions Past Psychological History: Anxiety, Bipolar, Panic Disorder Additional Psychological History / Comment(s): intermediate from [id number] Smoking Status: Current every day smoker Past Alcohol Use History: None Reported Additional Past Alcohol Use History / Comment(s): ernesto 1978., down to 8 cigs/day from 1ppd, had quit on & off since teens, uses nicotine patch off and on. Past Drug Use History: Marijuana Additional Drug Use History / Comment(s): smokes marijauna daily, pt aware not to use 24 hrs before his procedure. - Past Family History Mother Family Medical History: Diabetes Mellitus Father Family Medical History: Coronary Artery Disease (CAD) Sister(s) Family Medical History: Coronary Artery Disease (CAD), Diabetes Mellitus, Hypertension Medications and Allergies Home Medications Medication Instructions Recorded Confirmed Type Latanoprost/Pf [Latanoprost 0.005% 1 drop LEFT EYE HS 08/18/20 05/01/24 History Eye Drop] Levothyroxine Sodium 125 mcg PO DAILY 08/18/20 05/01/24 History Albuterol Sulfate [Albuterol 1 puff INHALATION RT-Q4H PRN 04/01/22 05/01/24 History Sulfate Hfa] Apixaban [Eliquis] 5 mg PO BID@0900,1700 04/01/22 05/01/24 History Aspirin EC [Ecotrin Low Dose] 81 mg PO DAILY 04/01/22 05/01/24 History Loratadine [Claritin] 10 mg PO DAILY 04/01/22 05/01/24 History Fluticasone/Vilanterol [Breo 1 puff INHALATION RT-DAILY 01/11/23 05/01/24 History Ellipta 200-25 Mcg Inhaler] OLANZapine [ZyPREXA] 20 mg PO HS 01/11/23 05/01/24 History Pantoprazole Sodium [Protonix] 40 mg PO DAILY 01/11/23 05/01/24 History Tiotropium [place] [Spiriva 1 puff INHALATION RT-DAILY 01/11/23 05/01/24 History Handihaler] Albuterol Nebulized [Ventolin 2.5 mg INHALATION RT-Q6H 03/01/24 05/01/24 History Nebulized] Amiodarone [Cordarone] 100 mg PO DAILY 03/01/24 05/01/24 History Budesonide/Formoterol Fumarate 2 puff INHALATION RT-BID 03/01/24 05/01/24 History [Symbicort 160-4.5 Mcg Inhaler] Gabapentin [Neurontin] 100 mg PO TID@0900,1200,2100 03/01/24 05/01/24 History PARoxetine HCL [Paxil] 30 mg PO DAILY 03/01/24 05/01/24 History Furosemide [Lasix] 40 mg PO DAILY 05/01/24 05/01/24 History Ipratropium-Albuterol Nebulize 3 ml INHALATION RT-QID PRN 05/01/24 05/01/24 History [Duoneb 0.5 mg-3 mg/3 ml Soln] Ketorolac 0.5% Ophth Soln [Acular 1 drops LEFT EYE QID 05/01/24 05/01/24 History 0.5%] Metoprolol Tartrate [Lopressor] 100 mg PO BID@0900,1700 05/01/24 05/01/24 History Midodrine [ProAmatine] 5 mg PO TID@0900,1200,2100 05/01/24 05/01/24 History Minocycline [Minocin] 50 mg PO BID@0900,1700 05/01/24 05/01/24 History PARoxetine HCL [Paxil] 10 mg PO DAILY 05/01/24 05/01/24 History Tamsulosin [Flomax] 0.4 mg PO DAILY 05/01/24 05/01/24 History lisinopriL [Zestril] 2.5 mg PO BID@0900,1700 05/01/24 05/01/24 History Allergies Allergy/AdvReac Type Severity Reaction Status Date / Time No Known Allergies Allergy Verified 05/01/24 13:40 Physical Exam Vitals: Vital Signs Temp Pulse Pulse Resp BP BP BP 05/02/24 11:15 88 05/02/24 11:10 84 05/02/24 08:15 88 05/02/24 08:05 92 05/02/24 08:04 92 05/02/24 07:57 88 05/02/24 07:00 98.1 F 93 18 100/58 05/02/24 05:11 90 05/02/24 05:00 91 05/02/24 02:37 98.3 F 97 16 86/52 05/01/24 22:36 98.3 F 94 18 98/66 05/01/24 21:33 96 18 93/69 05/01/24 20:10 94 05/01/24 20:00 92 05/01/24 18:30 66 18 93/69 05/01/24 17:00 103 H 22 94/79 05/01/24 16:12 91 05/01/24 16:02 90 05/01/24 16:00 86 22 92/75 05/01/24 15:00 86 22 92/63 05/01/24 14:00 80 20 91/56 05/01/24 13:00 90 20 103/60 05/01/24 12:00 87 20 115/90 05/01/24 11:47 84 18 115/90 05/01/24 11:38 74 Pulse Ox 05/02/24 11:15 05/02/24 11:10 05/02/24 08:15 05/02/24 08:05 05/02/24 08:04 05/02/24 07:57 4 L 05/02/24 07:00 91 L 05/02/24 05:11 05/02/24 05:00 05/02/24 02:37 94 L 05/01/24 22:36 94 L 05/01/24 21:33 95 05/01/24 20:10 05/01/24 20:00 05/01/24 18:30 97 05/01/24 17:00 92 L 05/01/24 16:12 05/01/24 16:02 05/01/24 16:00 92 L 05/01/24 15:00 94 L 05/01/24 14:00 94 L 05/01/24 13:00 95 05/01/24 12:00 93 L 05/01/24 11:47 97 05/01/24 11:38 Intake and Output 05/01/24 05/02/24 05/02/24 22:59 06:59 14:59 Output Total 500 Balance -500 Output: Urine 500 Other: Voiding Method Urinal Weight 108.862 kg GENERAL EXAM: Alert, obese, pleasant 69-year-old male, on 2 L nasal cannula, fairly comfortable in no apparent distress. HEAD: Normocephalic. EYES: Normal reaction of pupils, equal size. NOSE: Clear with pink turbinates. THROAT: No erythema or exudates. NECK: No masses, no JVD. CHEST: No chest wall deformity. LUNGS: Equal air entry with no crackles, wheeze, rhonchi or dullness. CVS: S1 and S2 normal with no audible murmur, regular rhythm. ABDOMEN: No hepatosplenomegaly, normal bowel sounds, no guarding or rigidity. SPINE: No scoliosis or deformity SKIN: No rashes CENTRAL NERVOUS SYSTEM: No focal deficits, tone is normal in all 4 extremities. EXTREMITIES: There is 1 plus peripheral edema. No clubbing, no cyanosis. Perip heral pulses are intact. Results - Laboratory Findings CBC and BMP: 05/02/24 06:14 05/02/24 06:14 PT/INR, D-dimer PT 12.8 sec (10.0-12.5) H 05/01/24 11:53 INR 1.2 (<1.2) H 05/01/24 11:53 Abnormal lab findings: Abnormal Labs 05/01/24 05/01/24 05/01/24 11:53 11:53 11:53 WBC 12.1 H RBC Hgb MCV 100.8 H MCHC 30.9 L Plt Count 117 L Neutrophils # 9.7 H PT 12.8 H INR 1.2 H Chloride BUN 57 H Creatinine 2.51 H Glucose Total Protein Albumin U Marijuana (THC) Screen 05/01/24 05/02/24 05/02/24 12:51 06:14 06:14 WBC 14.2 H RBC 4.18 L Hgb 12.5 L MCV MCHC 30.7 L Plt Count 111 L Neutrophils # 12.4 H PT INR Chloride 109 H BUN 42 H Creatinine 1.54 H Glucose 111 H Total Protein 5.2 L Albumin 3.0 L U Marijuana (THC) Screen Detected H - Diagnostic Findings Chest x-ray: image reviewed CT scan - chest: image reviewed Assessment and Plan Assessment: Ground-level fall without loss of consciousness after waking up to use the restroom, admitted to marijuana use prior to going to bed Chronic hypoxic/hypercapnic respiratory failure, maintained on home O2. Currently stable and without pulmonary symptoms. Procalcitonin negative Chronic and ongoing tobacco dependence Previous history of in-hospital cardiac arrest complicated by ventilator dependent respiratory failure and encephalopathy back in January 2023, recovered Chronic diastolic heart failure with preserved LV function Large hiatal hernia as noted on the CAT scan of the chest Chronic atrial fibrillation, anticoagulated with Eliquis, maintain on a combination of metoprolol and amiodarone and rate is controlled for now History of hypertension Hyperlipidemia Hypothyroidism History of bipolar disorder History of anxiety/depression History of marijuana use Plan: The patient was seen and evaluated Imaging, labs and medications reviewed Currently stable on his 2 L nasal cannula No pulmonary complaints Procalcitonin negative Continue bronchodilators Educated regarding smoking cessation Educated regarding marijuana cessation We will continue to follow and make further recommendations based on his clinic al status I have personally seen and examined the patient, performed the documentation and the assessment and plan as written. Number of minutes spent on the visit: 20.
--- NOTE | 2024-05-02 12:20 | P.CNOR ---
History of Present Illness - [facility] Consult date: 05/02/24 Requesting physician: Олег Sanon Consult reason: other (Back pain. T8, T10 compression deformity - fall) History of present illness: Patient is a 69-year-old male who presented the emergency department status post fall at home. Patient states he usually wakes up around 2 AM to have smoke every night and when he got up he is walking down the hallway when he tripped and fell. Patient states he believe his back hit the wall and he landed the ground. Patient denies losing consciousness or hitting his head. Patient states he then decided to come into the emergency department and has been having right-sided rib cage pain. Patient denies any other issues at this time. Orthopedics was consulted to T8 and T10 compression deformities status post fall. Patient does have past medical history significant for atrial fibrillation, hypertension, hyperlipidemia, osteoarthritis, hypothyroidism. Patient states he is not having any mid back pain at this time. Computed tomography scan of the thoracic spine does reveal compression deformities at T8 and T10. At bedside this morning, patient is not complaining of any back pain or pain on the lower extremity. Patient says sometimes at home when he is standing and doing dishes he does get low back pain with radiation of pain down either leg and when he sits down the pain is relieved. Patient says he has seen a chiropractor over the past year and he has had some relief when he sees a chiropractor. Patient denies any issues acutely. Patient says the pain is having is located over the posterior rib cage and he does get increased pain when he takes in a deep breath. Patient denies any other issues at this time. Patient usually ambulates independently. He says he has used a walker in the past but normally does not use any walker or cane. Patient denies chest pain, fever, nausea, oncology vision, loss of bowel/bladder control. Past Medical History Past Medical History: Atrial Fibrillation, COPD, Eye Disorder, Hyperlipidemia, Hypertension, Osteoarthritis (OA), Thyroid Disorder Additional Past Medical History / Comment(s): Sober 1978, hiatal hernia, glaucoma left eye, possible stroke behind left eye per opthamologist. arthritis in back,cystic acne on back to see agricultural services director. History of Any Multi-Drug Resistant Organisms: None Reported Past Surgical History: Heart Catheterization Additional Past Surgical History / Comment(s): hemorrhoidectomy, colonoscopy, cataract surgery tamara eyes Past Anesthesia/Blood Transfusion Reactions: No Reported Reaction Additional Past Anesthesia/Blood Transfusion Reaction / Comm: no blood transfusions Past Psychological History: Anxiety, Bipolar, Panic Disorder Additional Psychological History / Comment(s): custodial from [id number] Smoking Status: Current every day smoker Past Alcohol Use History: None Reported Additional Past Alcohol Use History / Comment(s): sober 1978., down to 8 cigs/day from 1ppd, had quit on & off since teens, uses nicotine patch off and on. Past Drug Use History: Marijuana Additional Drug Use History / Comment(s): smokes marijauna daily, pt aware not to use 24 hrs before his procedure. - Past Family History Mother Family Medical History: Diabetes Mellitus Father Family Medical History: Coronary Artery Disease (CAD) Sister(s) Family Medical History: Coronary Artery Disease (CAD), Diabetes Mellitus, Hypertension Medications and Allergies Home Medications Medication Instructions Recorded Confirmed Type Latanoprost/Pf [Latanoprost 0.005% 1 drop LEFT EYE HS 08/18/20 05/01/24 History Eye Drop] Levothyroxine Sodium 125 mcg PO DAILY 08/18/20 05/01/24 History Albuterol Sulfate [Albuterol 1 puff INHALATION RT-Q4H PRN 04/01/22 05/01/24 History Sulfate Hfa] Apixaban [Eliquis] 5 mg PO BID@0900,1700 04/01/22 05/01/24 History Aspirin EC [Ecotrin Low Dose] 81 mg PO DAILY 04/01/22 05/01/24 History Loratadine [Claritin] 10 mg PO DAILY 04/01/22 05/01/24 History Fluticasone/Vilanterol [Breo 1 puff INHALATION RT-DAILY 01/11/23 05/01/24 History Ellipta 200-25 Mcg Inhaler] OLANZapine [ZyPREXA] 20 mg PO HS 01/11/23 05/01/24 History Pantoprazole Sodium [Protonix] 40 mg PO DAILY 01/11/23 05/01/24 History Tiotropium [place] [Spiriva 1 puff INHALATION RT-DAILY 01/11/23 05/01/24 History Handihaler] Albuterol Nebulized [Ventolin 2.5 mg INHALATION RT-Q6H 03/01/24 05/01/24 History Nebulized] Amiodarone [Cordarone] 100 mg PO DAILY 03/01/24 05/01/24 History Budesonide/Formoterol Fumarate 2 puff INHALATION RT-BID 03/01/24 05/01/24 History [Symbicort 160-4.5 Mcg Inhaler] Gabapentin [Neurontin] 100 mg PO TID@0900,1200,2100 03/01/24 05/01/24 History PARoxetine HCL [Paxil] 30 mg PO DAILY 03/01/24 05/01/24 History Furosemide [Lasix] 40 mg PO DAILY 05/01/24 05/01/24 History Ipratropium-Albuterol Nebulize 3 ml INHALATION RT-QID PRN 05/01/24 05/01/24 History [Duoneb 0.5 mg-3 mg/3 ml Soln] Ketorolac 0.5% Ophth Soln [Acular 1 drops LEFT EYE QID 05/01/24 05/01/24 History 0.5%] Metoprolol Tartrate [Lopressor] 100 mg PO BID@0900,1700 05/01/24 05/01/24 History Midodrine [ProAmatine] 5 mg PO TID@0900,1200,2100 05/01/24 05/01/24 History Minocycline [Minocin] 50 mg PO BID@0900,1700 05/01/24 05/01/24 History PARoxetine HCL [Paxil] 10 mg PO DAILY 05/01/24 05/01/24 History Tamsulosin [Flomax] 0.4 mg PO DAILY 05/01/24 05/01/24 History lisinopriL [Zestril] 2.5 mg PO BID@0900,1700 05/01/24 05/01/24 History Allergies Allergy/AdvReac Type Severity Reaction Status Date / Time No Known Allergies Allergy Verified 05/01/24 13:40 Physical Examination Inspection: Negative for any open fractures, significant erythema positive for ecchymosis along the posterior right-sided rib cage. Negative for any open wounds. Sensation: Equal, symmetric, but intact at the upper and lower extremities Palpation: Nontender to palpation throughout cervical, thoracic and lumbar spine midline and in the paravertebral regions. Positive for TTP over posteriro rib cage along right side. NTTP throughout rest exam Range of motion: Full range of motion throughout bilateral upper and lower extremities Motor: 5/5 in all major motor groups in BUE. 4+/5 in all major motor groups in BLE Neurovascular: Radial pulses intact bilaterally. Cap refill under 3 seconds in digits upper extremities. Special tests: Negative Homans bilaterally. Negative clonus bilaterally. Results - Labs Labs: Abnormal Lab Results - Last 24 Hours (Table) 05/01/24 05/01/24 05/01/24 Range/Units 11:53 11:53 11:53 WBC 12.1 H (3.8-10.6) k/uL RBC (4.30-5.90) m/uL Hgb (13.0-17.5) gm/dL MCV 100.8 H (80.0-100.0) fL MCHC 30.9 L (31.0-37.0) g/dL Plt Count 117 L (150-450) k/uL Neutrophils # 9.7 H (1.3-7.7) k/uL PT 12.8 H (10.0-12.5) sec INR 1.2 H (<1.2) Chloride (98-107) mmol/L BUN 57 H (9-20) mg/dL Creatinine 2.51 H (0.66-1.25) mg/dL Glucose (74-99) mg/dL Total Protein (6.3-8.2) g/dL Albumin (3.5-5.0) g/dL U Marijuana (THC) Screen (NotDetected) 05/01/24 05/02/24 05/02/24 Range/Units 12:51 06:14 06:14 WBC 14.2 H (3.8-10.6) k/uL RBC 4.18 L (4.30-5.90) m/uL Hgb 12.5 L (13.0-17.5) gm/dL MCV (80.0-100.0) fL MCHC 30.7 L (31.0-37.0) g/dL Plt Count 111 L (150-450) k/uL Neutrophils # 12.4 H (1.3-7.7) k/uL PT (10.0-12.5) sec INR (<1.2) Chloride 109 H (98-107) mmol/L BUN 42 H (9-20) mg/dL Creatinine 1.54 H (0.66-1.25) mg/dL Glucose 111 H (74-99) mg/dL Total Protein 5.2 L (6.3-8.2) g/dL Albumin 3.0 L (3.5-5.0) g/dL U Marijuana (THC) Screen Detected H (NotDetected) H & H 05/01/24 05/02/24 Range/Units 11:53 06:14 Hgb 14.1 12.5 L (13.0-17.5) gm/dL Hct 45.6 40.6 (39.0-53.0) % Coagulation 05/01/24 Range/Units 11:53 INR 1.2 H (<1.2) Result Diagrams: 05/02/24 06:14 05/02/24 06:14 - Diagnostic results Comments: Computed tomography scan of the thoracic spine has been reviewed. Negative for any significant canal stenosis. T8 and T10 compression deformities present. Positive for spondylosis throughout the cervical spine Assessment and Plan Assessment: 1. Right-sided posterior rib cage pain; T8 and T10 vertebral compression fractures Plan: 1. Right-sided posterior rib cage pain; T8 and T10 vertebral compression fractures - computed tomography scan of thoracic spine does show T8 and T10 compression deformities. Negative for any significant canal stenosis. Some spondylosis present. Patient does not present with any significant pain on spine exam. I did discuss the finding of exam and imaging with my attending, Dr. Sheets. At this time we are not recommending any emergent surgical intervention. We recommend conservative measures with use of pain medication and PT/OT daily. Patient may weight-bear as tolerated with walker and assistance as needed. Orthopedics will continue to be available as needed to see patient during his stay in the hospital. Patient may follow-up in the outpatient setting with Dr. Sheets for further evaluation as needed. 2. Appreciate medical management 3. Pain management -Tylenol; gabapentin 4. DVT prophylaxis - Eliquis; aspirin 5. GI prophylaxis - Protonix; senna 6. PT/OT - weightbearing as tolerated with walker and assistance as needed 7. Encourage incentive spirometer use 8. Appreciate consult Time with Patient: Less than 30
--- NOTE | 2024-05-02 12:33 | P.NPCON ---
History of Present Illness - Reason for Consult acute renal failure - History of Present Illness Reason for consultation: Acute kidney injury History of present illness: Patient is a 69-year-old male seen in renal consultation for acute kidney injury. Patient's creatinine dated March 04, 2024 was 1.1. This admission it was elevated at 2.51 and is 1.54 today. Patient came to the hospital after he sustained a fall at home. Patient states he was in the kitchen hallway which was quite narrow and it was dark and he tripped and fell. Patient denies hitting his head or losing consciousness. He admits to good urine output. Denies gross hematuria or dysuria. Patient denies history of diabetes. Denies family history of renal disease. Denies chest pain or shortness of breath. No vomiting or diarrhea. Patient's blood pressures has been in the systolic 90s and diastolic 60s to 70s. He does take midodrine outpatient. No hydronephrosis noted on kidney ultrasound. UA benign. He is also being followed by orthopedic surgery for back fracture. Vital signs are stable. General: No acute distress. HEENT: Head exam is unremarkable. LUNGS: No audible rhonchi or wheezes. HEART: Rate and Rhythm are regular. ABDOMEN: Nontender. EXTREMITITES: No edema. Past Medical History Past Medical History: Atrial Fibrillation, COPD, Eye Disorder, Hyperlipidemia, H ypertension, Osteoarthritis (OA), Thyroid Disorder Additional Past Medical History / Comment(s): Sober 1978, hiatal hernia, glaucoma left eye, possible stroke behind left eye per opthamologist. 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 History of Any Multi-Drug Resistant Organisms: None Reported Past Surgical History: Heart Catheterization Additional Past Surgical History / Comment(s): hemorrhoidectomy, colonoscopy, cataract surgery tamara eyes Past Anesthesia/Blood Transfusion Reactions: No Reported Reaction Additional Past Anesthesia/Blood Transfusion Reaction / Comment(s): no blood transfusions Past Psychological History: Anxiety, Bipolar, Panic Disorder Additional Psychological History / Comment(s): assisted from [id number] Smoking Status: Current every day smoker Past Alcohol Use History: None Reported Additional Past Alcohol Use History / Comment(s): sober 1978., down to 8 cigs/day from 1ppd, had quit on & off since teens, uses nicotine patch off and on. Past Drug Use History: Marijuana Additional Drug Use History / Comment(s): smokes marijauna daily, pt aware not to use 24 hrs before his procedure. - Past Family History Mother Family Medical History: Diabetes Mellitus Father Family Medical History: Coronary Artery Disease (CAD) Sister(s) Family Medical History: Coronary Artery Disease (CAD), Diabetes Mellitus, Hypert ension Medications and Allergies Home Medications Medication Instructions Recorded Confirmed Type Latanoprost/Pf [Latanoprost 0.005% 1 drop LEFT EYE HS 08/18/20 05/01/24 History Eye Drop] Levothyroxine Sodium 125 mcg PO DAILY 08/18/20 05/01/24 History Albuterol Sulfate [Albuterol 1 puff INHALATION RT-Q4H PRN 04/01/22 05/01/24 History Sulfate Hfa] Apixaban [Eliquis] 5 mg PO BID@0900,1700 04/01/22 05/01/24 History Aspirin EC [Ecotrin Low Dose] 81 mg PO DAILY 04/01/22 05/01/24 History Loratadine [Claritin] 10 mg PO DAILY 04/01/22 05/01/24 History Fluticasone/Vilanterol [Breo 1 puff INHALATION RT-DAILY 01/11/23 05/01/24 His tory Ellipta 200-25 Mcg Inhaler] OLANZapine [ZyPREXA] 20 mg PO HS 01/11/23 05/01/24 History Pantoprazole Sodium [Protonix] 40 mg PO DAILY 01/11/23 05/01/24 History Tiotropium [place] [Spiriva 1 puff INHALATION RT-DAILY 01/11/23 05/01/24 History Handihaler] Albuterol Nebulized [Ventolin 2.5 mg INHALATION RT-Q6H 03/01/24 05/01/24 History Nebulized] Amiodarone [Cordarone] 100 mg PO DAILY 03/01/24 05/01/24 History Budesonide/Formoterol Fumarate 2 puff INHALATION RT-BID 03/01/24 05/01/24 History [Symbicort 160-4.5 Mcg Inhaler] Gabapentin [Neurontin] 100 mg PO TID@0900,1200,2100 03/01/24 05/01/24 History PARoxetine HCL [Paxil] 30 mg PO DAILY 03/01/24 05/01/24 History Furosemide [Lasix] 40 mg PO DAILY 05/01/24 05/01/24 History Ipratropium-Albuterol Nebulize 3 ml INHALATION RT-QID PRN 05/01/24 05/01/24 History [Duoneb 0.5 mg-3 mg/3 ml Soln] Ketorolac 0.5% Ophth Soln [Acular 1 drops LEFT EYE QID 05/01/24 05/01/24 History 0.5%] Metoprolol Tartrate [Lopressor] 100 mg PO BID@0900,1700 05/01/24 05/01/24 History Midodrine [ProAmatine] 5 mg PO TID@0900,1200,2100 05/01/24 05/01/24 History Minocycline [Minocin] 50 mg PO BID@0900,1700 05/01/24 05/01/24 History PARoxetine HCL [Paxil] 10 mg PO DAILY 05/01/24 05/01/24 History Tamsulosin [Flomax] 0.4 mg PO DAILY 05/01/24 05/01/24 History lisinopriL [Zestril] 2.5 mg PO BID@0900,1700 05/01/24 05/01/24 History Allergies Allergy/AdvReac Type Severity Reaction Status Date / Time No Known Allergies Allergy Verified 05/01/24 13:40 Physical Exam Vitals: Vital Signs Temp Pulse Pulse Resp BP BP BP 05/02/24 11:15 88 05/02/24 11:10 84 05/02/24 08:15 88 05/02/24 08:05 92 05/02/24 08:04 92 05/02/24 07:57 88 05/02/24 07:00 98.1 F 93 18 100/58 05/02/24 05:11 90 05/02/24 05:00 91 05/02/24 02:37 98.3 F 97 16 86/52 05/01/24 22:36 98.3 F 94 18 98/66 05/01/24 21:33 96 18 93/69 05/01/24 20:10 94 05/01/24 20:00 92 05/01/24 18:30 66 18 93/69 05/01/24 17:00 103 H 22 94/79 05/01/24 16:12 91 06/20/24 16:02 90 05/01/24 16:00 86 22 92/75 05/01/24 15:00 86 22 92/63 05/01/24 14:00 80 20 91/56 05/01/24 13:00 90 20 103/60 Pulse Ox 05/02/24 11:15 05/02/24 11:10 05/02/24 08:15 05/02/24 08:05 05/02/24 08:04 05/02/24 07:57 4 L 05/02/24 07:00 91 L 05/02/24 05:11 05/02/24 05:00 05/02/24 02:37 94 L 05/01/24 22:36 94 L 05/01/24 21:33 95 05/01/24 20:10 05/01/24 20:00 05/01/24 18:30 97 05/01/24 17:00 92 L 05/01/24 16:12 05/01/24 16:02 05/01/24 16:00 92 L 05/01/24 15:00 94 L 05/01/24 14:00 94 L 05/01/24 13:00 95 Intake and Output 05/01/24 05/02/24 05/02/24 22:59 06:59 14:59 Output Total 500 Balance -500 Output: Urine 500 Other: Voiding Method Urinal Weight 108.862 kg Results - Lab Results Most recent lab results Calcium 8.6 mg/dL (8.4-10.2) 05/02/24 06:14 05/02/24 06:14 05/02/24 06:14 Assessment and Plan Plan: Assessment: 1. Acute kidney injury secondary to vasomotor nephropathy secondary to hypotension. Creatinine 2.5 on admission and is 1.54 today. Creatinine as low as 1.1 dated March 04, 2024. UA benign. No hydronephrosis noted on kidney ultrasound. 2. Status post fall with thoracic spine compression deformity noted on imaging. Orthopedic surgery following. 3. Chronic diastolic CHF. 4. History of cardiac arrest. 5. A-fib. Plan: Hold antihypertensives. Hold diuretics. Maintain midodrine. Avoid nephrotoxins. Continue to monitor renal function and urine output. Thank you for the consultation. I will continue to follow the patient with you during his hospital stay.
--- NOTE | 2024-05-02 16:57 | P.PN ---
Progress Note - Text Progress Note Date: 05/02/24 Chief Complaint: Fall This 69-year-old patient, follows with Dr. Alvin Villela. Chronic stable medical condition include atrial fibrillation, hypertension, hyperlipidemia, osteoarthritis, hypothyroid arthritis in the back bipolar. Patient continues to smoke. She presented to the ER taking a fall and he fell on his back on the right side against a wall. Patient continues to smoke cigarettes. Also does marijuana. Has been coughing some wheezing short of breath. Also felt lightheaded. Appetite is good. Has 3 L of oxygen at home. Wheezing. Some sputum production. May 02: Back pain is better. Discussed with Dr. Sheets from orthopedics. No further intervention. Seen by nephrology. Hold diuretics. Seen by pulmonary. Feel the findings are chronic. No further intervention. Some improvement in patient's breathing. Had the patient sit up in a chair. Had 100% of his lunch Active Medications Acetaminophen (Acetaminophen Tab 325 Mg Tab) 650 mg PO Q6HR PRN PRN Reason: Mild Pain or Fever > 100.5 Albuterol Sulfate (Albuterol Nebulized 2.5 Mg/3 Ml) 2.5 mg INHALATION RT-Q4H PRN PRN Reason: Wheezing Albuterol/Ipratropium (Ipratropium-Albuterol 3 Ml Neb) 3 ml INHALATION RT-Q4H [facility] Last Admin: 05/02/24 16:01 Dose: 3 ml Amiodarone HCl (Amiodarone 100 Mg Tab) 100 mg PO DAILY [facility] Last Admin: 05/02/24 08:35 Dose: 100 mg Apixaban (Apixaban 5 Mg Tab) 5 mg PO BID@0900,1700 [facility]; Protocol Last Admin: 05/02/24 08:35 Dose: 5 mg Aspirin (Aspirin 81 Mg) 81 mg PO DAILY [facility] Last Admin: 05/02/24 08:34 Dose: 81 mg Budesonide (Budesonide 1 Mg/2 Ml Nebu) 1 mg INHALATION RT-BID [facility] Last Admin: 05/02/24 07:55 Dose: 1 mg Formoterol Fumarate (Formoterol Fumarate 20 Mcg/2 Ml Nebu) 20 mcg INHALATION RT-BID [facility] Last Admin: 05/02/24 07:55 Dose: 20 mcg Gabapentin (Gabapentin 100 Mg Cap) 100 mg PO TID@0900,1200,2100 [facility] Last Admin: 05/02/24 13:08 Dose: 100 mg Guaifenesin (Guaifenesin 600 Mg Tablet.Er) 600 mg PO QID [facility] Last Admin: 05/02/24 13:08 Dose: 600 mg Doxycycline Hyclate 100 mg/ (Sodium Chloride) 100 mls @ 100 mls/hr IVPB Q12HR [facility]; Protocol Last Admin: 05/02/24 08:34 Dose: 100 mls/hr Ketorolac Tromethamine (Ketorolac 0.5% Ophth Drops 5 Ml Btl) 1 drops LEFT EYE QID [facility] Last Admin: 05/02/24 13:09 Dose: 1 drops Latanoprost (Latanoprost 0.005% Ophth Drops 2.5 Ml Btl) 1 drops LEFT EYE HS [facility] Last Admin: 05/01/24 21:59 Dose: 1 drops Levothyroxine Sodium (Levothyroxine 125 Mcg Tab) 125 mcg PO DAILY@0630 [facility] Last Admin: 05/02/24 06:22 Dose: 125 mcg Loratadine (Loratadine 10 Mg Tab) 10 mg PO DAILY [facility] Last Admin: 05/02/24 08:35 Dose: 10 mg Methylprednisolone Sodium Succinate (Methylprednisolone Sod Succi 40 Mg/Ml 1 Ml Vial) 40 mg IV Q12HR [facility] Last Admin: 05/02/24 08:34 Dose: 40 mg Metoprolol Tartrate (Metoprolol Tartrate 50 Mg Tab) 100 mg PO BID@0900,1700 [facility] Last Admin: 05/02/24 08:35 Dose: 100 mg Midodrine (Midodrine 5 Mg Tab) 5 mg PO AC-TID [facility] Last Admin: 05/02/24 13:44 Dose: 5 mg Naloxone HCl (Naloxone 0.4 Mg/Ml 1 Ml Vial) 0.2 mg IV Q2M PRN PRN Reason: Opioid Reversal Nicotine (Nicotine 7mg/24hr Patch) 1 patch TRANSDERM DAILY [facility] Last Admin: 05/02/24 08:35 Dose: 1 patch Olanzapine (Olanzapine 10 Mg Tab) 20 mg PO HS [facility] Last Admin: 05/01/24 20:37 Dose: 20 mg Pantoprazole Sodium (Pantoprazole 40 Mg Tablet) 40 mg PO AC-BRKFST [facility] Last Admin: 05/02/24 06:22 Dose: 40 mg Paroxetine HCl (Paroxetine 20 Mg Tab) 40 mg PO DAILY [facility] Last Admin: 05/02/24 08:36 Dose: 40 mg Tamsulosin HCl (Tamsulosin 0.4 Mg Cap.Er.24h) 0.4 mg PO DAILY [facility] Last Admin: 05/02/24 08:34 Dose: 0.4 mg Social history: Lives with his sister and [id number]. Was not present from 1978 through 2018. Has been sober with alcohol since 1978. Has been smoking since a teenager now down to 5 cigarettes a day. Does smoke marijuana. Physical examination: VITAL SIGNS: 88, 86, 18, 101 x 66, 93% on 3 L GENERAL: In bed, breathing better EYES: Pupils equal. Conjunctiva normal. HEENT: External appearance of nose and ears normal, oral cavity grossly normal. NECK: JVD is able to assess; masses not palpable. HEART: First and second heart sounds are normal; edema present LUNGS: Respiratory rate increased; decreased breath sounds , diminished wheezing ABDOMEN: Soft, nontender, liver spleen not palpable, no masses palpable. PSYCH: Alert oriented x 3 mood affect anxious l MUSCULOSKELETAL:No Clubbing/cyanosis;muscles-grossly intact. Evidence of OA. Tender over the posterior chest wall INVESTIGATIONS, reviewed in the clinical context: May 02: White count 14.2 hemoglobin 12.5 potassium 4.1 BUN 42 creatinine 1.54 May 01: White count 12.1 hemoglobin 14.1 platelets 117 sodium 140 potassium 5.1 BUN 57 creatinine 2.519 UA: Negative Urine drug screen negative EKG tracing personally reviewed by me-atrial flutter fibrillation rate 79 Chest x-ray film personally reviewed by me-possible left lung contusion/atelectasis CT chest without contrast: 7 x 6.88 consolidation with some air bronchograms along the lateral left lower lobe.. Large diaphragmatic hernia. Loops of colon and stomach. No displaced rib fractures. Head cervical spine CT scan: Some DJD changes but no fracture CT thoracic spine without contrast: Compression deformity of T8 and inferior endplate of T10 Previous labs: Creatinine 1.21 on March 17, 2024 Assessment plan: -Acute severe COPD exacerbation in a current smoker: Some improvement DuoNeb every 4,peroformist IV Solu-Medrol 40 mg every 12, Pulmicort nebulizer -Patient felt to have Chronic left lung changes. No pneumonia Followed by pulmonary. Incentive spirometry. -Compression deformity of T8 10 inferior endplate of T10. Note patient had a fall Seen by t Dr. Sheets. Continue current treatment plan -Acute hypoxic and hypercapnic respiratory failure secondary to COPD exacerbation: Much improved Better - chronic hypoxic respiratory failure secondary to COPD On 3 days oxygen at home -Large chronic diaphragmatic hernia with loops of colon and stomach -Persistent atrial fibrillation flutter, currently rate controlled Amiodarone. Eliquis. Lopressor i 100 g twice daily -Acute kidney injury likely ATN, from hypotension: Better Admission creatinine 2.51 Creatinine 1.21 on March 17, 2024 -Chronic kidney disease with creatinine of 1.21 on March 17, 2024 Renal ultrasound - Chronic congestive heart failure from systolic/diastolic dysfunction EF 45-50%- -History of cardiac arrest/pulseless electrical activity in January 2023 -Chronic nicotine dependence, cigarette smoker Nicotine patch -BPH with bladder outflow obstruction -Chronic hypertension On midodrine -Hypothyroid Levothyroxine 125 g a day -Essential hypertension . Lopressor -Bipolar disorder Zyprexa 20 mg daily at bedtime. Paxil. -Full code Sit up in a chair. Continue current medications. Gentle hydration for 10 hours. Repeat labs in the morning. Past Medical History Past Medical History: Atrial Fibrillation, COPD, Eye Disorder, Hyperlipidemia, Hypertension, Osteoarthritis (OA), Thyroid Disorder Additional Past Medical History / Comment(s): Sober 1978, hiatal hernia, glaucoma left eye, possible stroke behind left eye per opthamologist. 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 History of Any Multi-Drug Resistant Organisms: None Reported Past Surgical History: Heart Catheterization Additional Past Surgical History / Comment(s): HYDROCELE surg. x2, hemorrhoidec shari, colonoscopy, cataract surgery tamara eyes Past Anesthesia/Blood Transfusion Reactions: No Reported Reaction Additional Past Anesthesia/Blood Transfusion Reaction / Comment(s): no blood transfusions Past Psychological History: Anxiety, Bipolar, Panic Disorder Smoking Status: Current every day smoker Past Alcohol Use History: None Reported Past Drug Use History: Marijuana
[2024-05-02] MEDS: SODIUM CHLORIDE 0.9% 1,000 ML IV SCH (17:30)
[2024-05-02] MEDS: ACETAMINOPHEN TAB 325 MG TAB PO PRN (20:58)
[2024-05-03 04:27] VITALS: RESP 18
[2024-05-03 07:55] LABS: African American GFR (CKD) 66 (>60 ml/min/1.73 sqM); Anion Gap 0 mmol/L; Blood Urea Nitrogen 35 mg/dL (9-20); Calcium 9.3 mg/dL (8.4-10.2); Carbon Dioxide 31 mmol/L (22-30); Chloride 112 mmol/L (98-107); Glucose 114 mg/dL (74-99); Non-African American GFR(CKD) 57 (>60 ml/min/1.73 sqM); Potassium 4.4 mmol/L (3.5-5.1); Sodium 143 mmol/L (137-145)
[2024-05-03 09:04] VITALS: BP 131/88; TEMP 98.1
--- NOTE | 2024-05-03 11:14 | P.PN ---
Subjective Progress Note Date: 05/03/24 This is a 69-year-old male patient with a known history of chronic oxygen dependent COPD, hypercapnic respiratory failure, previous episode of in-hospital cardiac arrest with ventilatory dependent respiratory failure and encephalopathy in January 2023, chronic diastolic congestive heart failure, large hiatal hernia, chronic and ongoing tobacco dependence, chronic atrial fibrillation anticoagulated with Eliquis, hypertension, hyperlipidemia, hypothyroidism, bipolar disorder, anxiety/depression, marijuana use. He presented to the emergency room here yesterday after sustaining a fall at home. He admitted to using marijuana the night before then he got up approximately 2:00 in the morning and fell to the ground. He also felt he hit his left side of his back on the corner of the wall. He denied hitting his head. He denied loss of consciousness. Chest x-ray reveals a left lower lobe infiltrate or atelectasis. Fixed hiatal hernia. Right lung is clear. CT scan of the chest reveals a large diaphragmatic hernia which contains a loop of colon and stomach. Adjacent to the herniated diaphragm is compressive atelectasis. No displaced rib fractures noted. No pneumothorax. CT scan of the brain revealed no acute intracranial process. He is seen today in consultation on the regular medical floor. He is resting fairly comfortably in bed. Awake and alert in no acute distress. He denies any worsening shortness of breath, cough or congestion. He feels his COPD is stable. He is maintaining O2 saturations in the 90s on 2 L/min per nasal cannula. He is afebrile. Hemodynamically stable. White count 14.2. Hemoglobin 12.5. Platelets 111. Sodium 142. Potassium 4.1. Bicarb 30. BUN 42. Creatinine 1.54. Glucose 111. Urine drug screen positive for marijuana. The patient is seen today May 03, 2024 in follow-up on the regular medical floor. He is currently sitting up in a chair at the bedside. Awake and alert in no acute distress. Maintaining good O2 saturations in the 90s on 3 L/min per nasal cannula. Has been afebrile. Hemodynamically stable. Blood cultures are pending. Sodium 143. Potassium 4.4. Bicarb 31. BUN 35. Creatinine 1.29. Glucose 114. He is continued on DuoNeb inhalations, Pulmicort and Perforomist inhalations, Solu-Medrol. NicoDerm patch in place. Anticoagulated with Eliquis. Objective - Vital Signs Vital signs: Vital Signs Temp 98.1 F 05/03/24 07:00 Pulse 80 05/03/24 08:07 Resp 18 05/03/24 08:00 BP 131/88 05/03/24 07:00 Pulse Ox 95 05/03/24 07:00 FiO2 Intake & Output 05/02/24 05/03/24 05/03/24 18:59 06:59 18:59 Intake Total 222 Output Total 1000 450 Balance -1000 -450 222 Intake: Oral 222 Output: Urine 1000 450 Other: Voiding Method Urinal # Voids 3 - Exam GENERAL EXAM: Alert, 69-year-old male, up in a chair, on 3 L nasal cannula, in no apparent distress. HEAD: Normocephalic. EYES: Normal reaction of pupils, equal size. NOSE: Clear with pink turbinates. THROAT: No erythema or exudates. NECK: No masses, no JVD. CHEST: No chest wall deformity. LUNGS: Equal air entry with end expiratory wheeze, diminished. CVS: S1 and S2 normal with no audible murmur, regular rhythm. ABDOMEN: No hepatosplenomegaly, normal bowel sounds, no guarding or rigidity. SPINE: No scoliosis or deformity SKIN: No rashes CENTRAL NERVOUS SYSTEM: No focal deficits, tone is normal in all 4 extremities. EXTREMITIES: There is no peripheral edema. No clubbing, no cyanosis. Peripheral pulses are intact. - Labs CBC & Chem 7: 05/02/24 06:14 05/03/24 06:12 Labs: Abnormal Lab Results - Last 24 Hours (Table) 05/03/24 Range/Units 06:12 Chloride 112 H (98-107) mmol/L Carbon Dioxide 31 H (22-30) mmol/L BUN 35 H (9-20) mg/dL Creatinine 1.29 H (0.66-1.25) mg/dL Glucose 114 H (74-99) mg/dL Microbiology - Last 24 Hours (Table) 05/01/24 14:06 Blood Culture Gram Stain - Preliminary Blood 05/01/24 13:51 Blood Culture Gram Stain - Preliminary Blood Blood Culture - Preliminary Molecular ID Assessment and Plan Assessment: Ground-level fall without loss of consciousness after waking up to use the restroom, admitted to marijuana use prior to going to bed Chronic hypoxic/hypercapnic respiratory failure, maintained on home O2. Currently stable and without pulmonary symptoms. Procalcitonin negative Chronic and ongoing tobacco dependence Previous history of in-hospital cardiac arrest complicated by ventilator dependent respiratory failure and encephalopathy back in January 2023, recovered Chronic diastolic heart failure with preserved LV function Large hiatal hernia as noted on the CAT scan of the chest Chronic atrial fibrillation, anticoagulated with Eliquis, maintain on a combination of metoprolol and amiodarone and rate is controlled for now History of hypertension Hyperlipidemia Hypothyroidism History of bipolar disorder History of anxiety/depression History of marijuana use Plan: The patient was seen and evaluated Labs and medications reviewed Continue his home pulmonary medications, oxygen Complete a prednisone taper Cleared for discharge from the pulmonary standpoint I have personally seen and examined the patient, performed the documentation and the assessment and plan as written. Number of minutes spent on the visit: 10.
[2024-05-03 11:20] VITALS: PULSE 100
--- NOTE | 2024-05-03 12:44 | P.PN ---
Subjective patient is seen for follow-up for acute kidney injury. Renal function has improved. Serum creatinine down to 1.2 mg/dL. Currently maintained on IV fluids. Good urine output. No significant complaints today. Objective - Vital Signs Vital signs: Vital Signs Temp 98.1 F 05/03/24 07:00 Pulse 100 05/03/24 11:20 Resp 18 05/03/24 08:00 BP 131/88 05/03/24 07:00 Pulse Ox 95 05/03/24 07:00 FiO2 Intake & Output 05/02/24 05/03/24 05/03/24 18:59 06:59 18:59 Intake Total 222 Output Total 1000 450 Balance -1000 -450 222 Intake: Oral 222 Output: Urine 1000 450 Other: Voiding Method Urinal # Voids 3 - Exam patient is awake, comfortable, no acute distress. Examination of the heart S1 and S2 Examination of the lungs bilateral breath sounds are heard Abdomen is soft nontender Examination of lower extremity shows no evidence of edema STENOCAPTIONER exam grossly intact - Labs CBC & Chem 7: 05/02/24 06:14 05/03/24 06:12 Labs: Abnormal Lab Results - Last 24 Hours (Table) 05/03/24 Range/Units 06:12 Chloride 112 H (98-107) mmol/L Carbon Dioxide 31 H (22-30) mmol/L BUN 35 H (9-20) mg/dL Creatinine 1.29 H (0.66-1.25) mg/dL Glucose 114 H (74-99) mg/dL Microbiology - Last 24 Hours (Table) 05/01/24 14:06 Blood Culture Gram Stain - Preliminary Blood 05/01/24 13:51 Blood Culture Gram Stain - Preliminary Blood Blood Culture - Preliminary Molecular ID Assessment and Plan Assessment: 1. Acute kidney injury secondary to vasomotor nephropathy secondary to hypotension. Creatinine 2.5 on admission and is 1.2 today. Creatinine as low as 1.1 dated March 04, 2024. UA benign. No hydronephrosis noted on kidney ultrasound. 2. Status post fall with thoracic spine compression deformity noted on imaging. Orthopedic surgery following. 3. Chronic diastolic CHF. 4. History of cardiac arrest. 5. A-fib. Plan: stable for discharge from nephrology standpoint. Follow-up as outpatient in about 1 week.
--- NOTE | 2024-05-03 15:45 | P.DS ---
Providers Date of admission: 05/01/24 18:51 Expected date of discharge: 05/03/24 Attending physician: Олег Sanon Consults: 05/01/24 18:42 Consult Physician Routine Consulting Provider: Rainer Bazzi Consult Reason/Comments: Abnormal chest x-ray after fall Do you want consulting provider notified?: Yes 05/01/24 18:50 Consult Physician Routine Consulting Provider: Michael Sheets Consult Reason/Comments: Back pain. T8, T10 compression deformity - fall Do you want consulting provider notified?: Yes 05/01/24 18:53 Consult Physician Routine Consulting Provider: Tyler Bass Consult Reason/Comments: YUNIER Do you want consulting provider notified?: Yes Primary care physician: Josue Tika [facility] Course: Chief Complaint: Fall This 69-year-old patient, follows with Dr. Alvin Villela. Chronic stable medical condition include atrial fibrillation, hypertension, hyperlipidemia, osteoarthritis, hypothyroid arthritis in the back bipolar. Patient continues to smoke. She presented to the ER taking a fall and he fell on his back on the right side against a wall. Patient continues to smoke cigarettes. Also does marijuana. Has been coughing some wheezing short of breath. Also felt lightheaded. Appetite is good. Has 3 L of oxygen at home. Wheezing. Some sputum production. May 02: Back pain is better. Discussed with Dr. Sheets from orthopedics. No further intervention. Seen by nephrology. Hold diuretics. Seen by pulmonary. Feel the findings are chronic. No further intervention. Some improvement in patient's breathing. Had the patient sit up in a chair. Had 100% of his lunch May 03: Up in a recliner. Breathing much better. Patient counseled about smoking. Medications discussed. Home inhalers to continue. Discussion and discharge planning more than 35 minutes Social history: Lives with his sister and [id number]. Was not present from 1978 through 2018. Has been sober with alcohol since 1978. Has been smoking since a teenager now down to 5 cigarettes a day. Does smoke marijuana. Physical examination: VITAL SIGNS: 98.1, 94, 18, 131/88, 95% on 3 L GENERAL: Up in recliner, breathing better EYES: Pupils equal. Conjunctiva normal. HEENT: External appearance of nose and ears normal, oral cavity grossly normal. NECK: JVD is able to assess; masses not palpable. HEART: First and second heart sounds are normal; edema present LUNGS: Respiratory rate i normal; decreased breath sounds ABDOMEN: Soft, nontender, liver spleen not palpable, no masses palpable. PSYCH: Alert oriented x 3 mood affect anxious l MUSCULOSKELETAL:No Clubbing/cyanosis;muscles-grossly intact. Evidence of OA. Tender over the posterior chest wall INVESTIGATIONS, reviewed in the clinical context: May 03: BUN 35 creatinine 1.29 May 02: White count 14.2 hemoglobin 12.5 potassium 4.1 BUN 42 creatinine 1.54 May 01: White count 12.1 hemoglobin 14.1 platelets 117 sodium 140 potassium 5.1 BUN 57 creatinine 2.519 UA: Negative Urine drug screen negative EKG tracing personally reviewed by me-atrial flutter fibrillation rate 79 Chest x-ray film personally reviewed by me-possible left lung contusion/atelectasis CT chest without contrast: 7 x 6.88 consolidation with some air bronchograms along the lateral left lower lobe.. Large diaphragmatic hernia. Loops of colon and stomach. No displaced rib fractures. Head cervical spine CT scan: Some DJD changes but no fracture CT thoracic spine without contrast: Compression deformity of T8 and inferior endplate of T10 Previous labs: Creatinine 1.21 on March 17, 2024 Assessment plan: -Acute severe COPD exacerbation in a current smoker: Better DuoNeb every 4,peroformist IV Solu-Medrol 40 mg every 12, Pulmicort nebulizer Discharged home medications -Patient felt to have Chronic left lung changes. No pneumonia Followed by pulmonary. Incentive spirometry. -Compression deformity of T8 10 inferior endplate of T10. Note patient had a fall Seen by t Dr. Sheets. No intervention -Acute hypoxic and hypercapnic respiratory failure secondary to COPD exacerbation: Much improved Better - chronic hypoxic respiratory failure secondary to COPD On 3 days oxygen at home -Large chronic diaphragmatic hernia with loops of colon and stomach -Persistent atrial fibrillation flutter, currently rate controlled Amiodarone. Eliquis. Lopressor i 100 g twice daily -Acute kidney injury likely ATN, from hypotension: Better Admission creatinine 2.51-now down to 1.29 Creatinine 1.21 on March 17, 2024 -Chronic kidney disease with creatinine of 1.21 on March 17, 2024 Renal ultrasound - Chronic congestive heart failure from systolic/diastolic dysfunction EF 45-50%- -History of cardiac arrest/pulseless electrical activity in January 2023 -Chronic nicotine dependence, cigarette smoker Nicotine patch -BPH with bladder outflow obstruction -Chronic hypertension On midodrine -Hypothyroid Levothyroxine 125 g a day -Essential hypertension . Lopressor -Bipolar disorder Zyprexa 20 mg daily at bedtime. Paxil. -Full code Disposition: Home Past Medical History Past Medical History: Atrial Fibrillation, COPD, Eye Disorder, Hyperlipidemia, Hypertension, Osteoarthritis (OA), Thyroid Disorder Additional Past Medical History / Comment(s): Sober 1978, hiatal hernia, glaucoma left eye, possible stroke behind left eye per opthamologist. arthritis in back,cystic acne on back to see surveillance operator. History of Any Multi-Drug Resistant Organisms: None Reported Past Surgical History: Heart Catheterization Additional Past Surgical History / Comment(s): HYDROCELE surg. x2, hemorrhoidectomy, colonoscopy, cataract surgery tamara eyes Past Anesthesia/Blood Transfusion Reactions: No Reported Reaction Additional Past Anesthesia/Blood Transfusion Reaction / Comment(s): no blood transfusions Past Psychological History: Anxiety, Bipolar, Panic Disorder Smoking Status: Current every day smoker Past Alcohol Use History: None Reported Past Drug Use History: Marijuana Plan - Discharge Summary New Discharge Prescriptions: New Nicotine 7Mg/24Hr Patch [Habitrol] 1 patch TRANSDERM DAILY #30 patch predniSONE 10 mg PO DAILY #30 tab Continue Levothyroxine Sodium 125 mcg PO DAILY Latanoprost/Pf [Latanoprost 0.005% Eye Drop] 1 drop LEFT EYE HS Loratadine [Claritin] 10 mg PO DAILY Aspirin EC [Ecotrin Low Dose] 81 mg PO DAILY Apixaban [Eliquis] 5 mg PO BID@0900,1700 Fluticasone/Vilanterol [Breo Ellipta 200-25 Mcg Inhaler] 1 puff INHALATION RT-DAILY Tiotropium [place] [Spiriva Handihaler] 1 puff INHALATION RT-DAILY PARoxetine HCL [Paxil] 30 mg PO DAILY Budesonide/Formoterol Fumarate [Symbicort 160-4.5 Mcg Inhaler] 2 puff INHALATION RT-BID Albuterol Nebulized [Ventolin Nebulized] 2.5 mg INHALATION RT-Q6H Ipratropium-Albuterol Nebulize [Duoneb 0.5 mg-3 mg/3 ml Soln] 3 ml INHALATION RT-QID PRN PRN Reason: Shortness Of Breath Tamsulosin [Flomax] 0.4 mg PO DAILY Metoprolol Tartrate [Lopressor] 100 mg PO BID@0900,1700 Ketorolac 0.5% Ophth Soln [Acular 0.5%] 1 drops LEFT EYE QID Albuterol Sulfate [Albuterol Sulfate Hfa] 1 puff INHALATION RT-Q4H PRN PRN Reason: Wheezing Pantoprazole Sodium [Protonix] 40 mg PO DAILY OLANZapine [ZyPREXA] 20 mg PO HS Gabapentin [Neurontin] 100 mg PO TID@0900,1200,2100 Amiodarone [Cordarone] 100 mg PO DAILY PARoxetine HCL [Paxil] 10 mg PO DAILY lisinopriL [Zestril] 2.5 mg PO BID@0900,1700 Midodrine [ProAmatine] 5 mg PO TID@0900,1200,2100 Furosemide [Lasix] 40 mg PO DAILY Discontinued Minocycline [Minocin] 50 mg PO BID@0900,1700 Discharge Medication List Latanoprost/Pf [Latanoprost 0.005% Eye Drop] 1 drop LEFT EYE HS 08/18/20 [History] Levothyroxine Sodium 125 mcg PO DAILY 08/18/20 [History] Albuterol Sulfate [Albuterol Sulfate Hfa] 1 puff INHALATION RT-Q4H PRN 04/01/22 [History] Apixaban [Eliquis] 5 mg PO BID@0900,1700 04/01/22 [History] Aspirin EC [Ecotrin Low Dose] 81 mg PO DAILY 04/01/22 [History] Loratadine [Claritin] 10 mg PO DAILY 04/01/22 [History] Fluticasone/Vilanterol [Breo Ellipta 200-25 Mcg Inhaler] 1 puff INHALATION RT- DAILY 01/11/23 [History] OLANZapine [ZyPREXA] 20 mg PO HS 01/11/23 [History] Pantoprazole Sodium [Protonix] 40 mg PO DAILY 01/11/23 [History] Tiotropium [place] [Spiriva Handihaler] 1 puff INHALATION RT-DAILY 01/11/23 [H istory] Albuterol Nebulized [Ventolin Nebulized] 2.5 mg INHALATION RT-Q6H 03/01/24 [History] Amiodarone [Cordarone] 100 mg PO DAILY 03/01/24 [History] Budesonide/Formoterol Fumarate [Symbicort 160-4.5 Mcg Inhaler] 2 puff INHALATION RT-BID 03/01/24 [History] Gabapentin [Neurontin] 100 mg PO TID@0900,1200,2100 03/01/24 [History] PARoxetine HCL [Paxil] 30 mg PO DAILY 03/01/24 [History] Furosemide [Lasix] 40 mg PO DAILY 05/01/24 [History] Ipratropium-Albuterol Nebulize [Duoneb 0.5 mg-3 mg/3 ml Soln] 3 ml INHALATION RT-QID PRN 05/01/24 [History] Ketorolac 0.5% Ophth Soln [Acular 0.5%] 1 drops LEFT EYE QID 05/01/24 [History] Metoprolol Tartrate [Lopressor] 100 mg PO BID@0900,1700 05/01/24 [History] Midodrine [ProAmatine] 5 mg PO TID@0900,1200,209905/01/24 [History] PARoxetine HCL [Paxil] 10 mg PO DAILY 05/01/24 [History] Tamsulosin [Flomax] 0.4 mg PO DAILY 05/01/24 [History] lisinopriL [Zestril] 2.5 mg PO BID@0900,1700 05/01/24 [History] Nicotine 7Mg/24Hr Patch [Habitrol] 1 patch TRANSDERM DAILY #30 patch 05/03/24 [Rx] predniSONE 10 mg PO DAILY #30 tab 05/03/24 [Rx] Follow up Appointment(s)/Referral(s): Josue Villela MD [Primary Care Provider] - 1-2 days (please call sunday for an appointment ) Patient Instructions/Handouts: Acute Kidney Injury (IP), Fall Prevention for Older Adults (GEN), COPD (Chronic Obstructive Pulmonary Disease) (IP), Fall Prevention (DC) Discharge/Stand Alone Forms: Who Do I Call?, Assisted Living Facilities, Community Resources, Help In The Home Discharge Disposition: HOME SELF-CARE
== END 2024-05-03 13:22 | disposition home or self-care (01) | DRG 190 ==
LOC: EC 10:25 → 6NMEDSUR 13:42 → OBSVTOIN 18:51 → 6NMEDSUR 21:08
PROVIDERS: ADMIT Hospitalist; ATTEND Hospitalist
DX: J44.1 Chronic obstructive pulmonary disease with (acute) exacerbation (principal); J96.21 Acute and chronic respiratory failure with hypoxia; J96.22 Acute and chronic respiratory failure with hypercapnia; N17.0 Acute kidney failure with tubular necrosis; J98.11 Atelectasis; M48.54XA Collapsed vertebra, not elsewhere classified, thoracic region, initial encounter for fracture; I48.19 Other persistent atrial fibrillation; I13.0 Hypertensive heart and chronic kidney disease with heart failure and stage 1 through stage 4 chronic kidney disease, or unspecified chronic kidney disease; I50.42 Chronic combined systolic (congestive) and diastolic (congestive) heart failure; F17.200 Nicotine dependence, unspecified, uncomplicated; E03.9 Hypothyroidism, unspecified; E78.5 Hyperlipidemia, unspecified; F17.210 Nicotine dependence, cigarettes, uncomplicated; F31.9 Bipolar disorder, unspecified; W01.0XXA Fall on same level from slipping, tripping and stumbling without subsequent striking against object, initial encounter; W22.01XA Walked into wall, initial encounter; S20.219A Contusion of unspecified front wall of thorax, initial encounter; F12.90 Cannabis use, unspecified, uncomplicated; Y93.01 Activity, walking, marching and hiking; K44.9 Diaphragmatic hernia without obstruction or gangrene; I95.9 Hypotension, unspecified; N40.0 Benign prostatic hyperplasia without lower urinary tract symptoms; N18.9 Chronic kidney disease, unspecified; F41.0 Panic disorder [episodic paroxysmal anxiety]; Z99.81 Dependence on supplemental oxygen; Z86.74 Personal history of sudden cardiac arrest; Z79.899 Other long term (current) drug therapy; Z79.890 Hormone replacement therapy; Z79.82 Long term (current) use of aspirin; Z79.51 Long term (current) use of inhaled steroids; Z79.01 Long term (current) use of anticoagulants; Y92.009 Unspecified place in unspecified non-institutional (private) residence as the place of occurrence of the external cause; Z71.6 Tobacco abuse counseling
CPT/HCPCS: 36415; 70450; 71045; 71250; 72125; 72128; 72170; 76770; 80048; 80053; 80306; 80320; 81003; 82550; 84145; 85025; 85610; 85730; 86850; 86900; 86901; 87040; 87077; 87186; 93005; 94640; 96361; 96365; 96366; 96375; 96376; 99285

== ENCOUNTER 2024-06-28 10:36 | Emergency (ER) | payer MEDICARE, OTHER ==
[~2024-06-28 10:36] MED LIST changes: -ALPRAZolam 0.25 MG TAB PO PRN; -ALPRAZolam 0.5 MG TAB PO PRN; -ASPIRIN 325 MG TAB PO STA; -NITROGLYCERIN SL TABS 0.4 MG TAB SUBLINGUAL PRN; -SODIUM CHLORIDE 0.9% 1,000 ML in EMPTY BAG 1 BAG IV SCH; +cefTRIAXone IN SWFI 1,000 MG/10 ML SYRINGE IVP ONE; +methylPREDNISolone SOD SUCCI 125 MG/2 ML VIAL ONE
[2024-06-28] MEDS ORDERED: MORPHINE SULFATE 4 MG/ML SYRINGE ONE (10:45)
--- NOTE | 2024-08-01 13:08 | XR ---
Patient Vinod Geller ID [id number] [id number] Order # EXAMINATION TYPE: XR chest 1V DATE OF EXAM: 06/28/2024 COMPARISON: No comparison available on downtime PACS. INDICATION: Short of breath, difficulty in breathing TECHNIQUE: Single frontal view of the chest is obtained. FINDINGS: The heart size is enlarged. The pulmonary vasculature is normal. There is left lower lobe consolidation. Silhouetting left diaphragm is evident. Underlying abnormalit y cannot be excluded. Mild streak atelectasis in the right infrahilar infiltrate correlate for atelec tasis. IMPRESSION: 1. Left lower lobe consolidation. Correlate for pneumonia. Follow-up to clearing is recommended. 2. Mild atelectasis right perihilar region
--- NOTE | 2024-08-01 13:09 | XR ---
Patient Vinod Geller ID [id number] [id number] Order # EXAMINATION TYPE: XR abdomen 1V DATE OF EXAM: 06/28/2024 COMPARISON: No comparison available on downtime PACS. INDICATION: Difficulty breathing. Short of breath TECHNIQUE: Single view abdomen upright view FINDINGS: Nonspecific bowel gas is present. Psoas margins are normal as visualized. No organomegaly is present. Scoliosis is present. Left lower lobe consolidation is within the [id number]. There may be elevation of the left diaphra gm. Some streak atelectasis right infrahilar is also noted. IMPRESSION: 1. Nonspecific abdomen.
== END 2024-06-28 10:49 | disposition expired ==
LOC: EC 10:36
DX: R09.2 Respiratory arrest (principal); F17.200 Nicotine dependence, unspecified, uncomplicated
CPT/HCPCS: 99291 ×2; 96374 ×2; 94660; 93005; 71045; 74018; J2270; J0696; J2919